=== PATIENT | female | born 1990 | race Caucasian/White ===

== ENCOUNTER → 2018-05-30 10:48 | Outpatient (CLI) | payer OTHER, SELFPAY | PROVIDERS: Family Provider Family Medicine; PCP Family Medicine; Visit Provider Family Medicine | DX: R10.11 Right upper quadrant pain (principal) | CPT/HCPCS: 76705 ==

== ENCOUNTER 2018-10-22 14:33 | Emergency (ER) | payer OTHER, SELFPAY ==
[2018-10-22 14:34] VITALS: BP 120/62; PULSE 110; RESP 18; TEMP 37.2; O2SAT 93; BMI 23.4
--- NOTE | 2018-10-22 14:54 | ED.VISSUMM ---
- ER Visit Summary Date of Service: 10/22/18 Chief Complaint: Nausea, vomiting and diarrhea History of Present Illness: The patient is a 28 F no significant past medical history or prior abdominal surgeries. Patient states since last evening she started having nausea, vomiting and diarrhea. Daughters had similar symptoms but not as severe. She is also developed some abdominal cramping. Decreased oral intake. Decreased urination. No dysuria. Mild fever. Physical Examination: Vital signs are stable. She is afebrile. She does not look septic or toxic. Clinically she is probably mildly dehydrated mucous membranes are moist. HEENT exam unremarkable. Moist mucous membranes. Neck nontender. No lymphadenopathy. No meningismus. Lungs clear to auscultation bilateral. Heart regular rhythm rate about 110 no murmur. Abdomen soft. Nondistended. Normal bowel sounds. No hernias or masses. No signs of obstruction. No peritoneal signs. Extremities moves all 4. Nontender. No edema. Skin no rashes. Back nontender. Neurologically she is awake and alert with no focal motor deficits Test Results: None Emergency Department Course and Treatment: Treated with IV fluids, IV Zofran and p.o. fluid challenge. As well as she can hold down p.o. fluids she will be discharged home on repeat exams. Repeat exam at 1540 patient feels much better after IV fluids and IV Zofran. She is been able to drink glasses of water and is comfortable being discharged home. Treatment Plan: Zofran for nausea as needed. Fluids and rest. Follow-up as needed. Return if worse. Disposition: Discharge Impression: Acute viral gastroenteritis Mild dehydration This note was generated with [employer] dictation software. It may contain incorrect words, spelling, and punctuation that were not noted in review of the chart prior to signing ED Disposition - Plan for ED Patient: Disposition: Home or Assisted Living Chief Complaint: Nausea/Vomiting/Diarrhea Instructions: ED Gastroenteritis Viral Referrals: Yoandy Gates MD [Primary Care Provider] - 1-2 Days if not improving Additional Instructions: Plenty of fluids and rest. Zofran as needed for nausea. Follow-up with your primary care physician if not improving or return to the ER feeling worse.
--- NOTE | 2018-10-22 14:57 | ED.DEP ---
ED Disposition - Plan for ED Patient: Disposition: Home or Assisted Living Chief Complaint: Nausea/Vomiting/Diarrhea Instructions: ED Gastroenteritis Viral Prescriptions: Ondansetron [Zofran Odt] 4 mg PO Q8H PRN PRN #10 tab PRN Reason: Nausea Referrals: Yoandy Gates MD [Primary Care Provider] - 1-2 Days if not improving Additional Instructions: Plenty of fluids and rest. Zofran as needed for nausea. Follow-up with your primary care physician if not improving or return to the ER feeling worse.
[2018-10-22] MEDS: 0.9% Normal Saline 1,000 ML 1000 ML IV (15:00)
[2018-10-22] MEDS: Ondansetron 4 MG/2 ML Vial IV (15:00)
[2018-10-22 15:45] VITALS: BP 126/74; PULSE 69; RESP 15; O2SAT 98
--- OUTSIDE RECORDS SUMMARY | 2018-12-27 11:18 | XMS RPT_ITS ---
:1990 Author Organization [facility] Care Team Providers Name Role Phone Yoandy Gates Primary Care Unavailable Anthony Clayton Attending Unavailable Yoandy Gates Attending Unavailable Yoandy Gates Referring Unavailable Yoandy Gates Primary Care Unavailable PROBLEMS PROBLEMS No Problem Records FoundPROCEDURES PROCEDURES No Procedure Records FoundRESULTS RESULTS EMERGENCY DEPARTMENT Observed: 10/22/2018 Status: F Source: [place] SUMMARY 4:04 PM [facility] [facility] Medical Records Department [address] [place] [address] Emergency Department Summary 10/22/18 1454 MR#: [id number] Acct: [id number] Name: AIDEN FRENCH Rep #: [id number] : 1990 28 From: Anthony Clayton MD PCP: Yoandy Gates MD Status: DEP ER - ER Visit Summary Date of Service: 10/22/18 Chief Complaint: Nausea, vomiting and diarrhea History of Present Illness: The patient is a 28 F no significant past medical history or prior abdominal surgeries. Patient states since last evening she started having nausea, vomiting and diarrhea. Daughters had similar symptoms but not as severe. She is also developed some abdominal cramping. Decreased oral intake. Decreased urination. No dysuria. Mild fever. Physical Examination: Vital signs are stable. She is afebrile. She does not look septic or toxic. Clinically she is probably mildly dehydrated mucous membranes are moist. HEENT exam unremarkable. Moist mucous membranes. Neck nontender. No lymphadenopathy. No meningismus. Lungs clear to auscultation bilateral. Heart regular rhythm rate about 110 no murmur. Abdomen soft. Nondistended. Normal bowel sounds. No hernias or masses. No signs of obstruction. No peritoneal signs. Extremities moves all 4. Nontender. No edema. Skin no rashes. Back nontender. Neurologically she is awake and alert with no focal motor deficits Test Results: None Emergency Department Course and Treatment: Treated with IV fluids, IV Zofran and p.o. fluid challenge. As well as she can hold down p.o. fluids she will be discharged home on repeat exams. Repeat exam at 1540 patient feels much better after IV fluids and IV Zofran. She is been able to drink glasses of water and is comfortable being discharged home. Treatment Plan: Zofran for nausea as needed. Fluids and rest. Follow-up as needed. Return if worse. Disposition: Discharge Impression: Acute viral gastroenteritis Mild dehydration This note was generated with [employer] dictation software. It may contain incorrect words, spelling, and punctuation that were not noted in review of the chart prior to signing ED Disposition - Plan for ED Patient: Disposition: Home or Assisted Living Chief Complaint: Nausea/Vomiting/Diarrhea Instructions: ED Gastroenteritis Viral Referrals: Yoandy Gates MD [Primary Care Provider] - 1-2 Days if not improving Additional Instructions: Plenty of fluids and rest. Zofran as needed for nausea. Follow-up with your primary care physician if not improving or return to the ER feeling worse. What to do if you have Problems For any increased pain, shortness of breath, bleeding, nausea or vomiting, chest pain, or any unexpected problems, contact your Primary Care Provider. Call [facility] ([phone]) or report to the closest Emergency Room. Call 911 if necessary. 10/22/18 9496 <Electronically signed by Anthony Clayton MD> Date Anthony Clayton MD Cosigner Signature (If Indicated): Date CC: Yoandy Gates MD DISCHARGE INSTRUCTION Observed: 10/22/2018 Status: F Source: [place] 4:04 PM [facility] [place] [facility] Medical Records Department [address] [place] [address] Discharge Instruction 10/22/18 1457 MR#: [id number] Acct: [id number] Name: AIDEN FRENCH Rep #: [id number] : 1990 28 From: Anthony Clayton MD PCP: Yoandy Gates MD Status: DEP ER ED Disposition - Plan for ED Patient: Disposition: Home or Assisted Living Chief Complaint: Nausea/Vomiting/Diarrhea Instructions: ED Gastroenteritis Viral Prescriptions: Ondansetron [Zofran Odt] 4 mg PO Q8H PRN PRN #10 tab PRN Reason: Nausea Referrals: Yoandy Gates MD [Primary Care Provider] - 1-2 Days if not improving Additional Instructions: Plenty of fluids and rest. Zofran as needed for nausea. Follow-up with your primary care physician if not improving or return to the ER feeling worse. What to do if you have Problems For any increased pain, shortness of breath, bleeding, nausea or vomiting, chest pain, or any unexpected problems, contact your Primary Care Provider. Call [facility] ([phone]) or report to the closest Emergency Room. Call 911 if necessary. 10/22/18 1604 <Electronically signed by Anthony Clayton MD> Date Anthony Clayton MD Cosigner Signature (If Indicated): Date CC: Yoandy Gates MD ABDOMEN LIMITED Observed: 05/30/2018 Status: F Source: [place] 11:16 AM [facility] Imaging Services [address] [place] [address] Abdomen Limited MR#: [id number] Acct: [id number] Name: AIDEN FRENCH Rep #: [id number] : 1990 F 27 From: Melia Viera PCP: Yoandy Gates MD Status: REG CLI Study: Abdomen Limited Date of Exam: 05/30/18 Exam# [id number] Ordering Dr: Yoandy Gates MD STUDY: ABDOMINAL ULTRASOUND - RIGHT UPPER QUADRANT REASON FOR VISIT: Female, 27 years old. EPIGASTRIC PAIN X 8 YEARS- INTERMITTENT. TECHNIQUE: Ultrasound evaluation of the right upper quadrant was performed with real-time and static oneill-scale imaging. TECHNICAL QUALITY: Adequate. COMPARISON: None. FINDINGS: Liver: The liver measures 14.4 cm. There is normal echogenicity of the liver. The bile ducts are within normal limits. There is hepatic color flow. The direction of portal flow is hepatopetal. There is no demonstrated mass lesion. Gallbladder: Normal distended gallbladder. The gallbladder wall measures 1.8 mm. There is a negative sonographic Parson's sign. There is no pericholecystic fluid. There are no gallstones. Common Bile Duct (C.B.D.): The common bile duct measures 3.3 mm. Pancreas: Normal size of the head, body of the pancreas. There is normal echogenicity of the pancreas. There is no demonstrated pancreatic mass or cyst. Right Kidney: Normal size of the right kidney. The right kidney measures 11.5 cm. Normal renal cortex. The right cortex measures cm. There is no demonstrated renal mass or cyst. There is no right hydronephrosis. US/Abdomen Limited IMPRESSION: Normal right upper quadrant ultrasound examination. Electronically Signed: Melia Viera MD at 12:35 EDT Tel , Service support , CC: Yoandy Gates MD Corporate Lawyer: Signed ALLERGIES ALLERGIES DATE TYPE / CODE NAME / CODE REACTION SEVERITY SOURCE 10/22/2018 Drug No Known Unknown [place] [facility] Allergy/4160 Allergies/F00 [facility] [address](SNOMED [id number](RXNOR Repository CT) M) ENCOUNTERS ENCOUNTERS ADMIT/DISCHARGE ACCOUNT ADMITTING ENCOUNTER LOCATION SOURCE NUMBER CLASS 10/22/2018/ [id number] Emergency [place] 9 5 [facility] ing:ED Repository 05/30/2018 [id number] Ambulatory [place] 6 [facility] ing: Repository PAYERS PAYERS ENCOUNTER GUARANTOR PAYER SUBSCRIBER SOURCE 10/22/2018 AIDEN CAROLIN Primary AIDEN CAROLIN [place] [id number] Insurance:[facility]: [facility] [id number] Number: Repository [id number]: [phone] () Date:[id number] [address] [address]WV: 10/22/2018 Secondary NOT GIVENUNK [place] Insurance:SELF PAY [facility] Number: Effective Repository Date:2018-10-22 05/30/2018 AIDEN F Primary AIDEN F [place] [id number] [facility] [id number] Number: Repository [id number]: ([phone] () Date:[id number] [address] [address]LY: 05/30/2018 Secondary NOT GIVENUNK [place] Insurance:SELF PAY [facility] Number: Effective Repository Date:2018-05-27
== END 2018-10-22 15:46 | disposition home or self-care (01) ==
PROVIDERS: Emergency Provider Emergency Medicine; Family Provider Family Medicine; PCP Family Medicine
DX: A08.4 Viral intestinal infection, unspecified (principal); E86.0 Dehydration; Z72.0 Tobacco use
CPT/HCPCS: 96361; 96374; 99283; J7030; A4216; J2405

== ENCOUNTER → 2018-11-10 10:40 | Outpatient (CLI) | payer OTHER, SELFPAY ==
[2018-10-22 14:34] VITALS: BMI 23.4
[2018-11-10 13:18] LABS: HIV - WCH Non-Reactive (Nonreactive)
[2018-11-10 18:01] LABS: Chlamydia Trachomatis by PCR Negative (Negative); Neisserai gonorrhoeae by PCR Negative (Negative); Probe Check PASS; Sample Adequacy Control PASS; Specimen Processing Control PASS
[2018-11-11 12:06] LABS: HEPATITIS B SURFACE AG Negative (Negative); Hep B Surface Antibodies Non Reactive (.); Hep C Antibodies <0.1 s/co ratio (0.0-0.9)
[2018-11-12 23:33] LABS: Rapid Plasmin Reagin (RPR) NONREACTIVE (NONREACTIVE)
== END ==
PROVIDERS: Family Provider Family Medicine; PCP Family Medicine; Visit Provider Family Medicine
DX: Z11.3 Encounter for screening for infections with a predominantly sexual mode of transmission (principal)
CPT/HCPCS: 36415; 86592; 86703; 86706; 86803; 87340; 87491; 87591

== ENCOUNTER → 2018-12-07 12:02 | Outpatient (CLI) | payer OTHER, SELFPAY ==
--- NOTE | 2018-12-07 12:06 | RAD_ITS ---
STUDY: X-RAY - LUMBAR SPINE REASON FOR EXAM: Female, 28 years old. Pain goes into right hip TECHNIQUE: 5 view(s) of the lumbar spine were obtained. COMPARISON: None FINDINGS: Normal lumbar lordosis. There is no substantial scoliosis. There is a normal alignment of the vertebrae. Transitional segment at the lumbosacral junction. Normal vertebral bodies and endplates. Normal disc space heights. The soft tissue structures are unremarkable. RAD/L/S Spine Min 4 Views IMPRESSION: Transitional segment of the lumbosacral junction. No acute bony injury. Correlate with MRI if clinical symptoms persist. Electronically Signed: Albin Caballero DO at 23:58 EST Tel [phone], Service support ,
[2018-12-07 14:44] LABS: Vitamin D,25 Hydroxy 22.4 ng/mL (29.95-100.01)
== END ==
PROVIDERS: Family Provider Family Medicine; PCP Family Medicine; Referring Provider Family Medicine; Visit Provider Family Medicine
DX: M46.1 Sacroiliitis, not elsewhere classified (principal); E55.9 Vitamin D deficiency, unspecified
CPT/HCPCS: 36415; 72110; 82306

== ENCOUNTER → 2019-01-12 | Outpatient (CLI) | payer OTHER, SELFPAY | END | disposition home or self-care (01) | LOC: LABSPEC 15:31 | PROVIDERS: Family Provider Family Medicine; PCP Family Medicine; Referring Provider Nurse Practitioner Adult Health; Visit Provider Nurse Practitioner Adult Health | DX: B80 Enterobiasis (principal) | CPT/HCPCS: 87177; 87209 ==

== ENCOUNTER 2020-08-04 06:31 | Emergency (ER) | payer MEDICAID, SELFPAY ==
[2020-08-04 06:31] VITALS: BP 123/81; PULSE 86; RESP 18; TEMP 37.1; O2SAT 100; BMI 27.5
[2020-08-04 06:53] LABS: Absolute Lymphocyte Count 2.44 X10^3/uL (0.83-4.51); Absolute Neutrophil Count 3.8 X10^3/uL (2.0-7.7); Basophil# 0.07 X10^3/uL; Eosinophil# 0.29 X10^3/uL; Hematocrit 39.5 % (37-47); Hemoglobin 13.1 g/dL (12.0-15.0); Lymphocyte # 2.44 X10^3/ul (4.0); Lymphocyte % 33.9 % (19-41); Mean Corp Hgb Conc 33.2 g/dL (32-36); Mean Corpuscular Volume 90.6 fL (81-99); Mean Platelet Vol. 9.5 fl (6.2-12.0); Monocyte# 0.55 X10^3/uL; Monocyte% 7.6 % (0-10); NRBC Flagged by Analyzer 0 % (0-5); Neutrophil # 3.83 X10^3/uL (2.7-7.7); Neutrophil % 53.2 % (47-70); Platelet Count 303 K/mm3 (150-450); RBC Distribution Width CV 12.4 % (11.6-14.6); RBC Distribution Width SD 40.8 fl (35.1-43.9); Red Blood Count 4.36 M/mm3 (4.2-5.4); White Blood Count 7.2 K/mm3 (4.4-11.0)
[2020-08-04 07:03] LABS: Anion Gap 6 (5-15); BUN 15 mg/dL (7-18); BUN/Creat Ratio 17.4 RATIO (10-20); Chloride 111 mmol/L (98-107); Creatinine, Serum 0.86 mg/dL (0.55-1.02); EST Glomerular Filtration Rate 83 mL/min (>60); Est Glom Filt Rate - Afr Amer 101 mL/min (>60); Estimated Creatinine Clearance 69.95 ml/min; Glucose 101 mg/dL (74-106); Potassium 3.9 mmol/L (3.5-5.1); Sodium Level 141 mmol/L (136-145)
[2020-08-04] MEDS: Ketorolac 15 MG/ML Vial IV (07:16)
[2020-08-04 07:21] LABS: Internal QC Validated? YES +Cl - CLEAR BKGD; Pregnancy, Serum, hCG Quali. NEGATIVE Negative
--- NOTE | 2020-08-04 07:32 | ED.VIS.GEN ---
History of Present Illness Chief Complaint: Abd Pain Informant: Patient Onset: Today, Hours Context: Sudden Onset Timing: Continuous Quality: Pain Location: Localized suprapubic region Current Severity: Mild Maximum Severity: Severe Worsened by: Supine position Relieved by: Nothing Associated Symptoms: Nausea vomiting and radiation to left side Narrative: Patient is a 30-year-old Ab0 female who was last normal menstrual period was July 10 who presents with chief complaint of suprapubic pain that started 0530 associated with nausea and vomiting. She is presently in a position. She denies history of renal ureterolithiasis. Denies history of endometriosis. She does have history ovarian cyst. She does not use form of control. She denies history of endometriosis. Denies history of STI. She denies dysuria, frequency, urgency or hematuria. She denies vaginal bleeding. There is no history of trauma. Patient has no other complaints. Prior similar symptoms: No Recent Illness/Hospitalization: No - Past Medical History (1) No significant past medical history Status: Acute Past Medical History - Allergies and Home Meds Allergies/Adverse Reactions: Allergies No Known Allergies Allergy (Verified 08/04/20 06:37) Primary Care Physician: Yoandy Gates MD [Primary Care Provider] - Prior records reviewed: Yes Surgical History: noncontributory Lives: With Family Smoking Status: Former smoker Alcohol: Rare Drugs: None Review of Systems General: Denies: Chills, Fever, Malaise, Subjective, Sweats Eyes: Denies: Visual changes - bilaterally, Blurred Vision - bilaterally ENT: Denies: Rhinorrhea, Sore throat Cardiovascular: Denies: Chest pain, Palpitations Respiratory: Denies: Dyspnea, Cough, Dyspnea on exertion Gastrointestinal: Reports: Abdominal pain, Nausea, Vomiting. Denies: Diarrhea, Constipation, Melena, Hematochezia, -, - Genitourinary: Denies: Dysuria, Hematuria, Frequency Musculoskeletal: Reports: Back pain. Denies: Myalgias, Arthralgias, Neck pain, Swelling, Extremity Pain Skin: Denies: Rash, Wounds Neurological: Denies: Headache, Weakness, Numbness Endocrine: Denies: Polyuria, Polydipsia Hematologic: Denies: Easy bruising, Easy bleeding Physical Exam Vital Signs/Narrative: Vital Signs Temp Pulse Resp BP Pulse Ox 08/04/20 06:31 98.8 F 86 18 123/81 H 100 Inital Vital Signs reviewed: Yes General: Well nourished, Well developed, Acute Distress Head: Normocephalic, Atraumatic Eyes: Perrl, EOMI ENT: Moist mucous membranes, No rhinorrhea Neck: Supple, Nontender Cardiovascular: Regular rate, Regular rhythm, No murmurs Respiratory: No distress, CTA bilaterally, Chest nontender Abdomen: Soft, Nondistended, Normal bowel sounds, No masses, Tender, Guarding. Negative for: Rebound tenderness Rectal: Deferred : - - External genitalia is normal. Vaginal mucosa is normal. Cervix is slightly erythematous with discharge noted. Patient has significant cervical motion tenderness. She has significant left adnexal tenderness. Unable to appreciate any mass or fullness. Patient guards. Minimal discomfort right ad Back: Nontender, Normal Inspection Extremities: Nontender, No edema Skin: Normal color, No rash Neurological: Alert, Oriented x3, Cranial nerves II-XII grossly intact, Normal Strength, Normal Sensation Psychological: Normal affect, Normal Mood Diagnostic/Tx/Re-eval Impressions Transvaginal US 08/04/20 08:11 IMPRESSION: 2.7 cm x 1.7 cm x 1.6 cm complex cystic nodule in the left ovary. This may represent a complicated cyst such as hemorrhagic cyst. Follow-up is recommended. There is normal blood flow to both ovaries. Electronically Signed: Miguel Chairez, at 9:09 EDT , Service support , 08/04/20 08:11 Transvaginal Non- [US] Stat Laboratory Results 08/04/20 08/04/20 08/04/20 06:35 06:35 06:35 WBC 7.2 RBC 4.36 Hgb 13.1 Hct 39.5 MCV 90.6 MCH 30.0 MCHC 33.2 RDW Std Deviation 40.8 RDW Coeff of Jamil 12.4 Plt Count 303 MPV 9.5 Immature Gran % (Auto) 0.300 Neut % (Auto) 53.2 Lymph % (Auto) 33.9 [place] % (Auto) 7.6 Eos % (Auto) 4.0 Baso % (Auto) 1.0 Absolute Neuts (auto) 3.8 Absolute Lymphs (auto) 2.44 Nucleated RBC % 0 Sodium 141 Potassium 3.9 Chloride 111 H Carbon Dioxide 24.0 Anion Gap 6 BUN 15 Creatinine 0.86 Estim Creat Clear Calc 69.95 Est GFR (MDRD) Af Amer 101 Est GFR (MDRD) Non-Af 83 BUN/Creatinine Ratio 17.4 Glucose 101 Calcium 9.0 Serum , Qual NEGATIVE Urine Color Urine Clarity Urine pH Ur Specific Marne Urine Protein Urine Glucose (UA) Urine Ketones Urine Occult Blood Urine Nitrite Urine Bilirubin Urine Urobilinogen Ur Leukocyte Esterase Urine RBC Urine WBC Ur Squamous Epith Cells Amorphous Sediment Urine Bacteria Urine Mucus 08/04/20 08:20 WBC RBC Hgb Hct MCV MCH MCHC RDW Std Deviation RDW Coeff of Jamil Plt Count MPV Immature Gran % (Auto) Neut % (Auto) Lymph % (Auto) [place] % (Auto) Eos % (Auto) Baso % (Auto) Absolute Neuts (auto) Absolute Lymphs (auto) Nucleated RBC % Sodium Potassium Chloride Carbon Dioxide Anion Gap BUN Creatinine Estim Creat Clear Calc Est GFR (MDRD) Af Amer Est GFR (MDRD) Non-Af BUN/Creatinine Ratio Glucose Calcium Serum , Qual Urine Color Yellow Urine Clarity Sl. Cloudy Urine pH 7.0 Ur Specific Marne 1.015 Urine Protein Negative Urine Glucose (UA) Normal Urine Ketones Negative Urine Occult Blood Negative Urine Nitrite Negative Urine Bilirubin Negative Urine Urobilinogen Normal Ur Leukocyte Esterase Negative Urine RBC 0 SEEN Urine WBC 0 SEEN Ur Squamous Epith Cells 0-5 SEEN Amorphous Sediment 1+ Urine Bacteria 0 SEEN Urine Mucus 0 SEEN Patient states she does not have a supervisor [employer]. She was referred to Dr. Bruna Franco who is on-call. She was informed of the ultrasound results. - Medical Decision Making With abrupt onset of abdominal pain that radiates to the left area which is unusual for her need to evaluate for ureterolithiasis with hydronephrosis, ruptured ovarian cyst, torsion, blood work was initiated per nursing protocol. Pelvic exam is pending. ED Disposition - Plan for ED Patient: Disposition: Home or Assisted Living Diagnosis: Complex cyst of left ovary Instructions: ED Cyst Ovarian Prescriptions: Naproxen [Naprosyn] 500 mg PO BID #14 tab Prescription Printed Hydrocodone Bitart/Apap 5-325 [[place] 5MG-325MG] 1 tab PO Q6H PRN PRN 3 Days #10 tab PRN Reason: Pain Prescription Printed Referrals: Yoandy Gates MD [Primary Care Provider] - Yolanda Schuster MD [STAFF PHYSICIAN] - 3-5 Days
--- NOTE | 2020-08-04 08:11 | US_ITS ---
STUDY: ULTRASOUND OF THE FEMALE PELVIS - COMPLETE REASON FOR EXAM: Female, 30 years old. PELVIC PAIN LMP: 07/10/2020. TECHNIQUE: Transvaginal TECHNICAL QUALITY: Adequate. COMPARISON: None. FINDINGS: The uterus is anteverted and is in a midline position. The uterus measures 9.4 cm x 5.6 cm x 4.4 cm. There is a Nabothian cyst of the cervix. The endometrium measures 10 mm in thickness, and is hyperechoic. There is no demonstrated endometrial mass. There is no demonstrated myometrial mass. I.U.D. - The patient does not have an I.U.D. The right ovary is visualized. The right ovary measures 2.6 cm x 3.3 cm x 1.8 cm. There is no right ovarian cyst or ovarian mass. There is no visualized right adnexal mass or complex lesion. There is normal arterial and normal venous vascularity. The left ovary is visualized. The left ovary measures 4.5 cm x 3.3 cm x 2.1 cm. There is a 2 cm x 1.7 cm x 1.6 cm complex cystic nodule in the left ovary. This may represent an hemorrhagic cyst. There is no visualized left adnexal mass or complex lesion. There is normal arterial and normal venous vascularity. There is no fluid in the cul-de-sac. US/Transvaginal Non- IMPRESSION: 2.7 cm x 1.7 cm x 1.6 cm complex cystic nodule in the left ovary. This may represent a complicated cyst such as hemorrhagic cyst. Follow-up is recommended. There is normal blood flow to both ovaries. Electronically Signed: Miguel Chairez, at 9:09 EDT , Service support ,
[2020-08-04 08:25] LABS: Bacteria 0 SEEN /hpf (None Seen); Mucous, Urine 0 SEEN /hpf (<or=2+); Red Blood Cells-Urine 0 SEEN /hpf (0-5); White Blood Cells 0 SEEN /hpf (0-5)
[2020-08-04 08:32] LABS: Color, Urine Yellow (Yellow); Glucose, Dipstick Normal (Normal); Ketone-Dipstick Negative (Negative); Leukocyte Esterase-Dipstick Negative /ul (Negative); Nitrite-Dipstick Negative (Negative); Occult Blood-Urine Negative /ul (Negative); Protein-Dipstick Negative (Negative); Specific Gravity, Urine 1.015 (1.002-1.030); Urine Bilirubin Dipstick Negative (Negative); Urine Clarity Sl. Cloudy (Clear); Urine Urobilinogen Normal (Normal)
[2020-08-04 08:47] LABS: Amorphous Sediment 1+; Squamous Epithelial Cells - UA 0-5 SEEN /hpf (5-10)
[2020-08-04 09:01] VITALS: BP 102/62; PULSE 65; RESP 16; O2SAT 99
[2020-08-04 11:08] VITALS: BP 122/78; PULSE 87; RESP 16; TEMP 36.4; O2SAT 99
[2020-08-04 11:10] LABS: Chlamydia Trachomatis by PCR Negative (Negative); Neisserai gonorrhoeae by PCR Negative (Negative); Probe Check PASS; Sample Adequacy Control PASS; Specimen Processing Control PASS
== END 2020-08-04 11:11 | disposition home or self-care (01) ==
PROVIDERS: Emergency Provider Emergency Medicine; PCP Family Medicine
DX: N83.292 Other ovarian cyst, left side (principal); Z87.891 Personal history of nicotine dependence
CPT/HCPCS: 76830; 76856; 80048; 81001; 84703; 85025; 87491; 87591; 96374; 99284; A4216; J2405

== ENCOUNTER 2021-04-04 13:41 | Emergency (ER) | payer MEDICAID, SELFPAY ==
[2021-04-04 13:42] VITALS: BP 119/74; PULSE 81; RESP 16; TEMP 36.4; O2SAT 99; BMI 25.5
--- NOTE | 2021-04-04 14:13 | EDS_ITS ---
HPI HPI - GI History of Present Illness Chief Complaint: Abd Pain Narrative Narrative: 30-year-old female presenting with right flank pain. She states it started acutely about 6 hours ago. She states that she did have difficulty finding position of comfort and had some nausea at that time. She states that the pain has gone down since then. She went to urgent care who sent her here because the pain was in the right lower quadrant. Patient has no fever or c hills. She denies urinary symptoms. She denies change in bowel habits. She is currently not in pain or having nausea. She states she has a history of ovarian cysts which feels somewhat different than this. She has no history of kidney stones. [facility] Medical History Ovarian cyst Home Medications albuterol sulfate [Ventolin HFA] 2 puff INHALATION Q6H PRN PRN #1 inhaler 08/29/14 [Rx Last Taken Unknown] naproxen 500 mg PO BID #14 tab 08/04/20 [Rx Last Taken Unknown] Allergy/AdvReac Type Severity Reaction Status Date / Time No Known Allergies Allergy Verified 04/04/21 13:41 Social History Smoking Status: Former smoker ROS ROS ED Constitutional Constitutional ED: Denies chills, fever(s) or sweats ENT ENT ED: Denies rhinorrhea or sore throat Cardiovascular Cardiovascular: Denies chest pain or palpitations Respiratory/Chest Respiratory/Chest: Denies cough or dyspnea Gastrointestinal Gastrointestinal: Reports abdominal pain and nausea; Denies constipation, diarrhea or vomiting Genitourinary Genitourinary ED: Denies dysuria or hematuria Musculoskeletal Musculoskeletal: Denies arthralgias or myalgias Integumentary Denies abscess or rash Neurologic Neurologic: Denies headache(s) or weakness Psychiatric Psychiatric: Denies anxiety or depression EXAM Physical Exam Const Vital Signs: 04/04/21 13:42 04/04/21 18:31 Temperature 97.6 F L Temperature Source Temporal Pulse Rate 81 71 Respiratory Rate 16 15 Blood Pressure 119/74 134/69 H Blood Pressure Mean 89 Pulse Ox 99 98 Oxygen Delivery Method Room Air Positive well nourished General Appearance ED: NAD HEENT normocephalic and atraumatic Eyes PERRL and EOMs intact bilaterally Resp normal respiratory effort and clear to auscultation bilaterally Cardio regular rate and regular rhythm GI non-tender and non-distended Palpation: soft Back/Spine no CVA tenderness Neuro Sensorium / Orientation: alert and oriented to person Psych mental status grossly normal and thought process normal Skin Lesions: no lesions Rashes: no rashes MDM MDM MDM Narrative Medical decision making narrative: Patient seen arrival for pain. She declined any analgesia or antiemetics. She initially would not accept any IV but did let the nursing staff draw blood. Patient was counseled that if she wanted to have a CT of the abdomen pelvis with IV contrast she would need an IV so an IV was established. On reevaluation the patient is laying her head on the bed while sitting in the chair crying. She states that she wants to leave but she does not want to leave before her results. I asked her if she needed any for pain and she said no. I tried to ask her what she was upset about although she did not answer me. I told her if she needed anything to please let me know. Patient's lab work-up was unremarkable. Patient's urinalysis is negative. CT of the abdomen pelvis shows no acute process. The appendix was not visualized however given she has no leukocytosis and she had acute onset of pain that does not sound like appendicitis. She is given return precautions. Impression: 1. Abdominal pain Lab Data Labs: Laboratory Results - last 24 hr 04/04/21 04/04/21 04/04/21 14:20 14:30 14:30 WBC 7.7 RBC 4.09 L Hgb 12.2 Hct 36.3 L MCV 88.8 MCH 29.8 MCHC 33.6 RDW Std Deviation 39.1 RDW Coeff of Jamil 12.1 Plt Count 279 MPV 9.6 Immature Gran % (Auto) 0.300 Neut % (Auto) 57.5 Lymph % (Auto) 31.6 [place] % (Auto) 6.8 Eos % (Auto) 2.9 Baso % (Auto) 0.9 Absolute Neuts (auto) 4.4 Absolute Lymphs (auto) 2.43 Nucleated RBC % 0 Sodium 139 Potassium 3.8 Chloride 108 H Carbon Dioxide 26.0 Anion Gap 5 BUN 13 Creatinine 0.83 Estim Creat Clear Calc 72.48 Est GFR (MDRD) Af Amer 105 Est GFR (MDRD) Non-Af 87 BUN/Creatinine Ratio 15.7 Glucose 84 Calcium 8.9 Urine Color Yellow Urine Clarity Sl. Cloudy Urine pH 5.0 Ur Specific [place] 1.020 Urine Protein Negative Urine Glucose (UA) Normal Urine Ketones Negative Urine Occult Blood Negative Urine Nitrite Negative Urine Bilirubin Negative Urine Urobilinogen Normal Ur Leukocyte Esterase Negative Urine RBC 0 SEEN Urine WBC 0 SEEN Ur Squamous Epith Cells 0 SEEN Urine Bacteria 0 SEEN Urine Mucus 0 SEEN Radiography Diagnostic Testing: Radiology Impression Abdomen/Pelvis CT 04/04/21 16:55 IMPRESSION: No acute abnormalities in the abdomen or pelvis. Non-visualization of the appendix. Electronically Signed: Ben Wren MD at 18:13 EDT Tel , Service support , Discharge Plan Triage Chief Complaint: Abd Pain ED Provider: Balbir Auguste Dx/Rx/DC Orders Instructions: ED Abdominal Pain Unkn Cause Fem Prescriptions: No Action albuterol sulfate [Ventolin HFA] 1 INHALER inhaler 2 puff inhalation Q6H PRN PRN (Reason: Wheezing) Qty: 1 RF: 0 naproxen 500 MG tablet 500 mg PO BID Qty: 14 RF: 0 Primary Care Provider: Tata Rock Referrals: Tata Rock MD [Primary Care Provider] - Disposition Disposition: Home, Self Care Discharge Date/Time: 04/04/21 18:32
[2021-04-04 14:32] LABS: Bacteria 0 SEEN /hpf (None Seen); Mucous, Urine 0 SEEN /hpf (<or=2+); Red Blood Cells-Urine 0 SEEN /hpf (0-5); Squamous Epithelial Cells - UA 0 SEEN /hpf (5-10); White Blood Cells 0 SEEN /hpf (0-5)
--- NOTE | 2021-04-04 14:38 | NURSING ---
Pt refusing IV and being difficult about having workup done stating I came here for a CAT scan...I don't understand why an IV is necessary. This RN explained that once IV established, we are able to draw blood repeatedly as well as provide IV pain medication if needed. We also need lab work to determine if kidney function and other lab work warrant further investigation of illness w/ a CAT scan. Pt resistant but agreeable to lab draw. Dr. Auguste made aware.
[2021-04-04 14:45] LABS: Color, Urine Yellow (Yellow); Glucose, Dipstick Normal (Normal); Ketone-Dipstick Negative (Negative); Leukocyte Esterase-Dipstick Negative /ul (Negative); Nitrite-Dipstick Negative (Negative); Occult Blood-Urine Negative /ul (Negative); Protein-Dipstick Negative (Negative); Urine Bilirubin Dipstick Negative (Negative); Urine Clarity Sl. Cloudy (Clear); Urine Urobilinogen Normal (Normal)
[2021-04-04 14:48] LABS: Absolute Lymphocyte Count 2.43 X10^3/uL (0.83-4.51); Absolute Neutrophil Count 4.4 X10^3/uL (2.0-7.7); Basophil# 0.07 X10^3/uL; Basophil% 0.9 % (0-1); Eosinophil# 0.22 X10^3/uL; Eosinophils% 2.9 % (0-5); Hematocrit 36.3 % (37-47); Hemoglobin 12.2 g/dL (12.0-15.0); Lymphocyte # 2.43 X10^3/ul (0.83-4.51); Lymphocyte % 31.6 % (19-41); Mean Corp Hgb Conc 33.6 g/dL (32-36); Mean Corpuscular Hgb 29.8 pg (27.0-32.0); Mean Corpuscular Volume 88.8 fL (81-99); Mean Platelet Vol. 9.6 fl (6.2-12.0); Monocyte# 0.52 X10^3/uL; Monocyte% 6.8 % (0-10); NRBC Flagged by Analyzer 0 % (0-5); Neutrophil # 4.43 X10^3/uL (2.7-7.7); Neutrophil % 57.5 % (47-70); Platelet Count 279 K/mm3 (150-450); RBC Distribution Width CV 12.1 % (11.6-14.6); RBC Distribution Width SD 39.1 fl (35.1-43.9); Red Blood Count 4.09 M/mm3 (4.2-5.4); White Blood Count 7.7 K/mm3 (4.4-11.0)
[2021-04-04 14:57] LABS: Anion Gap 5 (5-15); BUN 13 mg/dL (7-18); BUN/Creat Ratio 15.7 RATIO (10-20); Calcium,Total 8.9 mg/dL (8.5-10.1); Chloride 108 mmol/L (98-107); Creatinine, Serum 0.83 mg/dL (0.55-1.02); EST Glomerular Filtration Rate 87 mL/min (>60); Est Glom Filt Rate - Afr Amer 105 mL/min (>60); Estimated Creatinine Clearance 72.48 ml/min; Glucose 84 mg/dL (74-106); Potassium 3.8 mmol/L (3.5-5.1); Sodium Level 139 mmol/L (136-145)
--- NOTE | 2021-04-04 15:22 | NURSING ---
When Dr. Auguste questioned if whether test should be ordered prior to CAT scan, he responds that he asked pt if she had a chance of and she replied -- you have to have sex to get and there is no way that she is -- therefore, test not ordered at this time. nanotechnology engineering technologist Megan made aware.
--- NOTE | 2021-04-04 16:55 | CT_ITS ---
INDICATION: RLQ Pain -- IV PO Contrast EXAMINATION: CT Abdomen And Pelvis W/ Contrast Injection TECHNIQUE: Helically acquired images were obtained of the abdomen and pelvis after IV contrast. A radiation dose optimization technique was used for this scan. IV Contrast dosage and agent: Oral and amp; IV Gastrografin and amp; 100mL Isovue-300 Oral contrast: Yes. COMPARISON: None. FINDINGS: Visualized lung bases: Unremarkable Liver: Unremarkable Gallbladder: Unremarkable Spleen: Unremarkable Pancreas: Unremarkable Adrenal Glands: Unremarkable Kidneys: Unremarkable Vasculature: Unremarkable GI Tract: The appendix is not visualized. Lymphadenopathy: None Peritoneum: No ascites. Bladder: Unremarkable Reproductive organs: Unremarkable Bones/Soft tissues: No suspicious osseous or soft tissue lesions CT/Abdomen/Pelvis WITH Contrast IMPRESSION: No acute abnormalities in the abdomen or pelvis. Non-visualization of the appendix. Electronically Signed: Ben Wren MD at 18:13 EDT Tel , Service support ,
--- NOTE | 2021-04-04 17:04 | NURSING ---
Arcelia from CT called this RN stating that pt was complaining, grabbing R arm, c/o pins and needles in arm from contrast. Arcelia reports contrast administered without any issues and at the end of scan, they were able to flush the IV and had positive blood return. Pt's arm is red d/t pt grabbing and rubbing arm during scan.
[2021-04-04 18:31] VITALS: BP 134/69; PULSE 71; RESP 15; O2SAT 98
== END 2021-04-04 18:32 | disposition home or self-care (01) ==
PROVIDERS: Emergency Provider Student in an Organized Health Care Education/Training Program; PCP Internal Medicine
DX: R10.31 Right lower quadrant pain (principal); R11.0 Nausea; Z87.891 Personal history of nicotine dependence
CPT/HCPCS: 74177; 80048; 81001; 85025; 99283; Q9967; A4216

== ENCOUNTER 2021-05-18 14:26 | Emergency (ER) | payer MEDICAID, SELFPAY ==
[2021-05-18 14:28] VITALS: BP 116/86; PULSE 74; RESP 18; TEMP 36.7; O2SAT 96; BMI 24.4
--- NOTE | 2021-05-18 14:59 | CT_ITS ---
STUDY: CT BRAIN WITHOUT CONTRAST REASON FOR EXAM: Female, 30 years old. Pain RADIATION DOSAGE (If Supplied By Facility): CTDIvol = ( 44.99 ) mGy, DLP = ( 711.75 ) mGycm TECHNIQUE: Transaxial CT imaging of the brain was performed without administration of intravenous contrast material. Individualized dose optimization techniques were used for this CT. COMPARISON: No relevant priors. FINDINGS: Normal soft tissue structures. Normal calvarium. Normal size ventricles and extra-axial spaces for the patient''s age. Normal white matter tracts of the cerebral hemispheres. Normal basal ganglia and thalami. Normal brainstem. Normal cerebellum. There is no intracranial hemorrhage. There are no findings of an acute ischemic infarction. Normal visualized paranasal sinuses. CT/Brain/Head without Contrast IMPRESSION: Normal unenhanced CT scan of the brain. Electronically Signed: Miguel Chairez MD at 15:47 EDT , Service support ,
[2021-05-18] MEDS: 0.9% Normal Saline 1,000 ML 999 ML IV (15:21)
[2021-05-18] MEDS: Metoclopramide 10 MG/2 ML Vial IV (15:22)
[2021-05-18] MEDS: DiphenhydrAMINE 50 MG/ML Syringe 25 MG IV (15:22)
[2021-05-18 15:23] LABS: Absolute Lymphocyte Count 2.16 X10^3/uL (0.83-4.51); Absolute Neutrophil Count 6.4 X10^3/uL (2.0-7.7); Basophil# 0.07 X10^3/uL; Basophil% 0.7 % (0-1); Eosinophil# 0.15 X10^3/uL; Eosinophils% 1.6 % (0-5); Hematocrit 41.4 % (37-47); Hemoglobin 13.6 g/dL (12.0-15.0); Lymphocyte # 2.16 X10^3/ul (0.83-4.51); Lymphocyte % 22.9 % (19-41); Mean Corp Hgb Conc 32.9 g/dL (32-36); Mean Corpuscular Hgb 29.5 pg (27.0-32.0); Mean Corpuscular Volume 89.8 fL (81-99); Mean Platelet Vol. 9.4 fl (6.2-12.0); Monocyte# 0.57 X10^3/uL; NRBC Flagged by Analyzer 0 % (0-5); Neutrophil # 6.42 X10^3/uL (2.7-7.7); Neutrophil % 68.2 % (47-70); Platelet Count 293 K/mm3 (150-450); RBC Distribution Width CV 12.1 % (11.6-14.6); RBC Distribution Width SD 39.3 fl (35.1-43.9); Red Blood Count 4.61 M/mm3 (4.2-5.4); White Blood Count 9.4 K/mm3 (4.4-11.0)
[2021-05-18 15:43] LABS: ALB/GLOB Ratio 1.1 RATIO (0.9-2.4); AST(SGOT) 13 U/L (15-37); Alanine Aminotransfer ALT/SGPT 20 U/L (13-56); Albumin, Serum 3.9 g/dL (3.2-5.0); Alkaline Phosphatase 43 U/L (45-117); Anion Gap 3 (5-15); BUN 8 mg/dL (7-18); Chloride 107 mmol/L (98-107); Creatinine, Serum 0.73 mg/dL (0.55-1.02); EST Glomerular Filtration Rate 101 mL/min (>60); Est Glom Filt Rate - Afr Amer 122 mL/min (>60); Estimated Creatinine Clearance 82.41 ml/min; Globulin 3.4 g/dL (2.2-4.2); Glucose 77 mg/dL (74-106); Potassium 3.8 mmol/L (3.5-5.1); Protein, Total 7.3 g/dL (6.4-8.2); Sodium Level 139 mmol/L (136-145)
[2021-05-18 15:59] LABS: Bacteria 0 SEEN /hpf (None Seen); Mucous, Urine 0 SEEN /hpf (<or=2+); Red Blood Cells-Urine 0 SEEN /hpf (0-5); White Blood Cells 0 SEEN /hpf (0-5)
[2021-05-18 16:06] LABS: Color, Urine Yellow (Yellow); Glucose, Dipstick Normal (Normal); Ketone-Dipstick Negative (Negative); Leukocyte Esterase-Dipstick Negative /ul (Negative); Nitrite-Dipstick Negative (Negative); Occult Blood-Urine Negative /ul (Negative); Protein-Dipstick Negative (Negative); Urine Bilirubin Dipstick Negative (Negative); Urine Clarity Clear (Clear); Urine Urobilinogen Normal (Normal)
--- NOTE | 2021-05-18 16:16 | EX.ED.VIS.HA ---
HPI History of Present Illness Chief Complaint: Headache Informant: patient Onset/Context/Timing Onset: Weeks (3) Context: Gradual Timing: Continuous Quality -Headache: Positive for Throbbing Location: Generalized Worsened by: Laying flat Relieved by: Nothing Associated Symptoms/Injury Associated Symptoms: Positive for Nausea, Sinus Pressure, Numbness, Visual Changes, Blurred Vision and Photophobia; Negative for Fever, Vomiting, Sore Throat, Tingling, Preceding Aura and Visual Loss Narrative Narrative: Patient presents with a headache that has been constant for the past 3 weeks. Patient describes the pain as throbbing. Patient states it is generalized throughout her head. Patient states it is worse whenever she lays flat. Patient admits to some sinus pressure. Patient also admits to some fatigue. Patient admits to photophobia and phonophobia. Patient also admits to some intermittent blurred vision. Patient states she has numbness to her face. Patient admits to nausea but denies any vomiting. Patient denies any fevers or chills. [facility] Medical History Ovarian cyst Home Medications albuterol sulfate [Ventolin HFA] 2 puff INHALATION Q6H PRN PRN #1 inhaler 08/29/14 [Rx Last Taken Unknown] naproxen 500 mg PO BID #14 tab 08/04/20 [Rx Last Taken Unknown] Allergy/AdvReac Type Severity Reaction Status Date / Time No Known Allergies Allergy Verified 04/04/21 13:41 no surgical history Social History Smoking Status: Current every day smoker tobacco type: cigarettes ROS ROS ED Constitutional Constitutional ED: Reports chills and subjective; Denies fever(s) Eyes Eyes: Reports blurry vision; Denies diplopia ENT ENT ED: Denies rhinorrhea or sore throat Cardiovascular Cardiovascular: Denies chest pain or palpitations Respiratory/Chest Respiratory/Chest: Denies cough or dyspnea Gastrointestinal Gastrointestinal: Reports nausea; Denies vomiting Genitourinary Genitourinary ED: Denies dysuria or hematuria Musculoskeletal Musculoskeletal: Denies back pain or neck pain Integumentary Denies abscess or rash Neurologic Neurologic: Reports headache(s); Denies weakness Allergic/Immunologic Allergic/Immunologic ED: Denies mouth swelling or urticaria EXAM Physical Exam Const Vital Signs: 05/18/21 14:28 05/18/21 16:29 Temperature 98.1 F Temperature Source Temporal Pulse Rate 74 77 Respiratory Rate 18 Blood Pressure 116/86 H 120/88 H Blood Pressure Mean 96 Pulse Ox 96 Oxygen Delivery Method Room Air Positive well nourished and well developed General Appearance ED: well developed HEENT Reports moist mucous membranes Neck supple and no JVD Resp normal respiratory effort and clear to auscultation bilaterally Cardio regular rate, regular rhythm and no murmurs GI normal to inspection, nondistended, normoactive bowel sounds and non-tender Palpation: soft Extremity normal to inspection General Extremety ED: Negative for edema or tenderness General Extremity: Negative for edema Neuro oriented x3, CN's II-XII intact bilaterally and no sensory deficits noted Sensorium / Orientation: awake and alert Motor Exam: strength 5/5 throughout Psych mental status grossly normal Skin no rashes or lesions noted MDM MDM MDM Narrative Medical decision making narrative: Patient was given IV fluids, Reglan, and Benadryl. CT scan of the brain was obtained. There is no acute intracranial abnormality. This was interpreted by the radiologist and reviewed by myself. CBC and comprehensive metabolic profile within normal limits. Urinalysis was normal. Patient states her headache was improved on reevaluation. Patient states she still felt anxious and jittery. Patient was given a dose of Ativan here. Patient was instructed to drink plenty of fluids. Patient was instructed to rest in a dark quiet room. Patient was instructed to follow-up with her primary care physician in 5 to 7 days. Patient understood and was agreeable with the plan. All questions were answered. Lab Data Attestation: I reviewed the patient's lab results. Labs: Laboratory Results - last 24 hr 05/18/21 05/18/21 05/18/21 14:50 15:10 15:10 WBC 9.4 RBC 4.61 Hgb 13.6 Hct 41.4 MCV 89.8 MCH 29.5 MCHC 32.9 RDW Std Deviation 39.3 RDW Coeff of Jamil 12.1 Plt Count 293 MPV 9.4 Immature Gran % (Auto) 0.600 Neut % (Auto) 68.2 Lymph % (Auto) 22.9 [place] % (Auto) 6.0 Eos % (Auto) 1.6 Baso % (Auto) 0.7 Absolute Neuts (auto) 6.4 Absolute Lymphs (auto) 2.16 Nucleated RBC % 0 Sodium 139 Potassium 3.8 Chloride 107 Carbon Dioxide 29.0 Anion Gap 3 L BUN 8 Creatinine 0.73 Estim Creat Clear Calc 82.41 Est GFR (MDRD) Af Amer 122 Est GFR (MDRD) Non-Af 101 BUN/Creatinine Ratio 11.0 Glucose 77 Calcium 9.0 Total Bilirubin 1.00 AST 13 L ALT 20 Alkaline Phosphatase 43 L Total Protein 7.3 Albumin 3.9 Globulin 3.4 Albumin/Globulin Ratio 1.1 Urine Color Yellow Urine Clarity Clear Urine pH 7.0 Ur Specific [place] 1.010 Urine Protein Negative Urine Glucose (UA) Normal Urine Ketones Negative Urine Occult Blood Negative Urine Nitrite Negative Urine Bilirubin Negative Urine Urobilinogen Normal Ur Leukocyte Esterase Negative Urine RBC 0 SEEN Urine WBC 0 SEEN Ur Squamous Epith Cells 0-5 SEEN Urine Bacteria 0 SEEN Urine Mucus 0 SEEN Radiography Diagnostic Testing: Radiology Impression Brain CT 05/18/21 14:59 IMPRESSION: Normal unenhanced CT scan of the brain. Electronically Signed: Miguel Chairez MD at 15:47 EDT , Service support , Discharge Plan Triage Chief Complaint: Headache Other Complaint: Dizziness ED Provider: Jorge Hinson Dx/Rx/DC Orders Clinical Impression: Headache Instructions: ED Headache Unspecified Prescriptions: No Action albuterol sulfate [Ventolin HFA] 1 INHALER inhaler 2 puff inhalation Q6H PRN PRN (Reason: Wheezing) Qty: 1 RF: 0 naproxen 500 MG tablet 500 mg PO BID Qty: 14 RF: 0 Primary Care Provider: Tata Rock Referrals: Tata Rock MD [Primary Care Provider] - 5-7 Days Disposition Disposition: Home, Self Care Discharge Date/Time: 05/18/21 16:33
[2021-05-18 16:21] LABS: Squamous Epithelial Cells - UA 0-5 SEEN /hpf (5-10)
[2021-05-18] MEDS: LORazepam 2 MG/ML Syringe 0.5 MG IV (16:25)
[2021-05-18 16:29] VITALS: BP 120/88; PULSE 77
== END 2021-05-18 16:33 | disposition home or self-care (01) ==
PROVIDERS: Emergency Provider Emergency Medicine; PCP Internal Medicine
DX: R51.9 Headache, unspecified (principal); H53.149 Visual discomfort, unspecified; H53.8 Other visual disturbances; R11.0 Nausea; F17.210 Nicotine dependence, cigarettes, uncomplicated
CPT/HCPCS: 70450; 80053; 81001; 85025; 96361; 96374; 96375; 99283; J7030; A4216

== ENCOUNTER 2021-09-30 08:20 | Emergency (ER) | payer MEDICAID, SELFPAY ==
[2021-09-30 08:21] VITALS: BP 110/75; PULSE 103; RESP 16; TEMP 37.7; O2SAT 98; BMI 26.4
--- NOTE | 2021-09-30 08:37 | EX.ED.DYSGE1 ---
HPI History of Present Illness Chief Complaint: Headache Informant: patient and parent Narrative Narrative: 31-year-old female presents with her mother stating that since yesterday she has had fever headache sore throat congestion chills and vomiting. She is not Covid vaccinated. She states that when she gets cold it makes her headache worse. She notes photophobia and phonophobia. Headache is generalized. She notes body aches. [facility] Medical History Ovarian cyst Home Medications bupropion HCl 75 mg PO DAILY 09/30/21 [History Last Taken Unknown] escitalopram oxalate 10 mg PO DAILY 09/30/21 [History Last Taken Unknown] Allergy/AdvReac Type Severity Reaction Status Date / Time No Known Allergies Allergy Verified 09/30/21 08:21 Social History (Updated 09/30/21 @ 08:[address] Trent Frausto DO) Smoking Status: Current every day smoker tobacco type: cigarettes substance use type: does not use ROS ROS ED Constitutional Constitutional ED: Reports chills and fever(s); Denies weight loss Eyes Eyes: Denies change in vision or diplopia ENT ENT ED: Reports sore throat and other Details: Nasal congestion ; Denies ear pain or rhinorrhea Cardiovascular Cardiovascular: Denies chest pain, orthopnea, palpitations or racing heartbeat Respiratory/Chest Respiratory/Chest: Denies cough, dyspnea or orthopnea Gastrointestinal Gastrointestinal: Reports nausea and vomiting; Denies abdominal pain or diarrhea Genitourinary Genitourinary ED: Denies dysuria, hematuria or urinary frequency Musculoskeletal Musculoskeletal: Reports myalgias; Denies arthralgias Integumentary Denies abscess or rash Neurologic Neurologic: Reports headache(s); Denies weakness Psychiatric Psychiatric: Denies anxiety, depression, suicidal ideation or suicidal thoughts Endocrine Endocrinology: Denies polydipsia, polyphagia or polyuria Allergic/Immunologic Allergic/Immunologic ED: Denies mouth swelling, tongue swelling or urticaria EXAM Physical Exam Narrative Exam Narrative: 31-year-old female laying in bed whimpering with heated vest and blankets on Const Vital Signs: 09/30/21 08:21 Temperature 99.8 F H Temperature Source Temporal Pulse Rate 103 H Respiratory Rate 16 Blood Pressure 110/75 Blood Pressure Mean 86 Pulse Ox 98 Oxygen Delivery Method Room Air Positive well nourished and well developed General Appearance ED: well developed HEENT Reports normocephalic, head/scalp atraumatic, TM's clear and moist mucous membranes Negative for trauma Tympanic Membrane ED: Yes TM's clear Eyes PERRL and EOMs intact bilaterally Neck no lymphadenopathy, supple and no JVD Resp normal respiratory effort and clear to auscultation bilaterally Cardio regular rate and no murmurs Rate: tachycardic GI normal to inspection, nondistended, normoactive bowel sounds and non-tender Palpation: soft Back/Spine no CVA tenderness and normal ROM Extremity normal to inspection General Extremety ED: Negative for edema General Extremity: Negative for edema Neuro oriented x3 and CN's II-XII intact bilaterally Sensorium / Orientation: alert Motor Exam: strength 5/5 throughout Psych mental status grossly normal Mood & Affect: tearful; Negative for depressed Skin no rashes or lesions noted and no wounds MDM MDM MDM Narrative Medical decision making narrative: Basic blood work was normal. Influenza and Covid swabs were negative. Patient received fluids Zofran and Toradol. At this point patient will be discharged home with supportive care return if worsening or concerns Lab Data Attestation: I reviewed the patient's lab results. Labs: Laboratory Results - last 24 hr 09/30/21 09/30/21 08:41 08:41 WBC 4.9 RBC 4.29 Hgb 12.9 Hct 38.1 MCV 88.8 MCH 30.1 MCHC 33.9 RDW Std Deviation 38.5 RDW Coeff of Jamil 11.9 Plt Count 248 MPV 9.5 Immature Gran % (Auto) 0.200 Neut % (Auto) 82.8 H Lymph % (Auto) 5.3 L [place] % (Auto) 10.7 H Eos % (Auto) 0.4 Baso % (Auto) 0.6 Absolute Neuts (auto) 4.0 Absolute Lymphs (auto) 0.26 L Nucleated RBC % 0 Differential Comment SCANNED Sodium 140 Potassium 3.6 Chloride 109 H Carbon Dioxide 23.0 Anion Gap 8 BUN 8 Creatinine 0.90 Estim Creat Clear Calc 66.25 Est GFR (MDRD) Af Amer 95 Est GFR (MDRD) Non-Af 78 BUN/Creatinine Ratio 8.9 L Glucose 102 Calcium 8.6 Total Bilirubin 0.50 AST 20 ALT 31 Alkaline Phosphatase 45 Total Protein 7.1 Albumin 3.6 Globulin 3.5 Albumin/Globulin Ratio 1.0 Discharge Plan Triage Chief Complaint: Headache ED Provider: Trent Frausto Dx/Rx/DC Orders Clinical Impression: Headache, Acute viral syndrome Instructions: ED Viral Syndrome (Adult) Prescriptions: No Action escitalopram oxalate 10 mg tablet 10 mg PO DAILY RF: 0 bupropion HCl 75 mg tablet 75 mg PO DAILY RF: 0 Primary Care Provider: Tata Rock Referrals: Tata Rock MD [Primary Care Provider] - As Needed Disposition Disposition: Home, Self Care
[2021-09-30] MEDS: 0.9% Normal Saline 1,000 ML 1000 ML IV (08:51)
[2021-09-30] MEDS: Ondansetron 4 MG/2 ML Vial IV (08:51)
[2021-09-30] MEDS: Ketorolac 30 MG/ML Syringe IV (08:51)
[2021-09-30 08:52] LABS: Absolute Lymphocyte Count 0.26 X10^3/uL (0.83-4.51); Basophil# 0.03 X10^3/uL; Basophil% 0.6 % (0-1); Eosinophil# 0.02 X10^3/uL; Eosinophils% 0.4 % (0-5); Hematocrit 38.1 % (37-47); Hemoglobin 12.9 g/dL (12.0-15.0); Lymphocyte # 0.26 X10^3/ul (0.83-4.51); Lymphocyte % 5.3 % (19-41); Mean Corp Hgb Conc 33.9 g/dL (32-36); Mean Corpuscular Hgb 30.1 pg (27.0-32.0); Mean Corpuscular Volume 88.8 fL (81-99); Mean Platelet Vol. 9.5 fl (6.2-12.0); Monocyte# 0.52 X10^3/uL; Monocyte% 10.7 % (0-10); NRBC Flagged by Analyzer 0 % (0-5); Neutrophil # 4.02 X10^3/uL (2.7-7.7); Neutrophil % 82.8 % (47-70); POSITIVE DIFFERENTIAL YES; Platelet Count 248 K/mm3 (150-450); RBC Distribution Width CV 11.9 % (11.6-14.6); RBC Distribution Width SD 38.5 fl (35.1-43.9); Red Blood Count 4.29 M/mm3 (4.2-5.4); White Blood Count 4.9 K/mm3 (4.4-11.0)
[2021-09-30 08:55] LABS: Differential Indicated SCAN CRITERIA MET
[2021-09-30 09:08] LABS: AST(SGOT) 20 U/L (15-37); Alanine Aminotransfer ALT/SGPT 31 U/L (13-56); Albumin, Serum 3.6 g/dL (3.2-5.0); Alkaline Phosphatase 45 U/L (45-117); Anion Gap 8 (5-15); BUN 8 mg/dL (7-18); BUN/Creat Ratio 8.9 RATIO (10-20); Calcium,Total 8.6 mg/dL (8.5-10.1); Chloride 109 mmol/L (98-107); Differential Comment SCANNED; EST Glomerular Filtration Rate 78 mL/min (>60); Est Glom Filt Rate - Afr Amer 95 mL/min (>60); Estimated Creatinine Clearance 66.25 ml/min; Globulin 3.5 g/dL (2.2-4.2); Glucose 102 mg/dL (74-106); Potassium 3.6 mmol/L (3.5-5.1); Protein, Total 7.1 g/dL (6.4-8.2); Sodium Level 140 mmol/L (136-145)
== END 2021-09-30 09:53 | disposition home or self-care (01) ==
PROVIDERS: Emergency Provider Emergency Medicine; PCP Internal Medicine
DX: R51.9 Headache, unspecified (principal); B34.9 Viral infection, unspecified; R50.9 Fever, unspecified; J02.9 Acute pharyngitis, unspecified; R09.81 Nasal congestion; R11.2 Nausea with vomiting, unspecified; F17.210 Nicotine dependence, cigarettes, uncomplicated
CPT/HCPCS: 80053; 85025; 87426; 87804; 96361; 96374; 96375; 99283; J7030; A4216; J2405

== ENCOUNTER 2021-11-01 18:19 | Emergency (ER) | payer OTHER, MEDICAID, SELFPAY ==
[2021-11-01 18:20] VITALS: BP 117/84; PULSE 93; RESP 14; TEMP 36.6; O2SAT 99; BMI 25.8
--- NOTE | 2021-11-01 18:45 | ED.RN ---
PT WORKS FOR [employer] IN [place], [place]. PT DOES NOT HAVE IMMEDIATE SUPERVISORS NUMBER. THE ONLY NUMBER PATIENT HAS IS FOR THE MAIN OFFICE LINE [phone]. THIS RN ATTEMPTED TO CALL THIS LINE AND OBTAIN DRUG SCREEN INFORMATION. NO ANSWER. LEFT MESSAGE ON VOICEMAIL TO RETURN CALL. PT ALSO HAD PHONE NUMBER FOR DEONTE WHO IS HEALTH AND ESTIMATING MANAGER AT [phone]. RN SPOKE WITH DEONTE WHO STATES PATIENT WILL NEED A POST ACCIDENT DRUG SCREEN. RN INFORMED PATIENT. [facility] CALLED IN.
--- NOTE | 2021-11-01 20:31 | EDS_ITS ---
HPI History of Present Illness Chief Complaint: Back Informant: patient Narrative Narrative: Upper back pain at work around 3:30 AM today. 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 Was twisting when pain occurred. States movement pain goes down to her lower back. No history of similar. No medications taken. Her job is aware. She states she was being forced to come back to work. She denies any similar symptoms in the past. Denies any allergies. [facility] Medical History Anxiety Depression Ovarian cyst Home Medications bupropion HCl 75 mg PO DAILY 09/30/21 [History Last Taken Unknown] escitalopram oxalate 10 mg PO DAILY 09/30/21 [History Last Taken Unknown] cyclobenzaprine 10 mg PO TID PRN #12 tab 11/01/21 [Rx Last Taken Unknown] ibuprofen 600 mg PO 4X/DAY PRN #20 tab 11/01/21 [Rx Last Taken Unknown] Allergy/AdvReac Type Severity Reaction Status Date / Time No Known Allergies Allergy Verified 11/01/21 18:23 Social History Smoking Status: Current every day smoker tobacco type: e-cigarettes substance use type: does not use ROS ROS ED Constitutional Constitutional ED: Denies chills, fever(s) or sweats Eyes Eyes: Denies change in vision ENT ENT ED: Denies dysphagia or sore throat Cardiovascular Cardiovascular: Denies chest pain, leg edema, palpitations or racing heartbeat Respiratory/Chest Respiratory/Chest: Denies cough, dyspnea or dyspnea on exertion Gastrointestinal Gastrointestinal: Denies abdominal pain, diarrhea, nausea or vomiting Genitourinary Genitourinary ED: Denies dysuria, hematuria or urinary frequency Musculoskeletal Musculoskeletal: Reports back pain; Denies extremity pain or neck pain Integumentary Denies rash or wounds Neurologic Neurologic: Denies headache(s), paresthesias or weakness EXAM Physical Exam Const Vital Signs: 11/01/21 18:20 11/01/21 22:54 Temperature 97.8 F Temperature Source Temporal Pulse Rate 93 80 Respiratory Rate 14 18 Blood Pressure 117/84 H 104/68 Blood Pressure Mean 95 Pulse Ox 99 95 Oxygen Delivery Method Room Air Positive well nourished and well developed General Appearance ED: well developed and NAD HEENT Reports moist mucous membranes normocephalic and atraumatic Eyes PERRL, EOMs intact bilaterally and conjunctivae normal General Eye ED: Yes normal appearance of both eyes Neck no lymphadenopathy and supple General: Negative for tenderness Chest Wall Chest: Negative for tenderness Resp normal respiratory effort and normal air movement Effort and Inspection: symmetric chest movement; Negative for respiratory distress Cardio regular rate, regular rhythm and no murmurs Peripheral Pulses: pulses 2+ throughout GI normal to inspection, nondistended, normoactive bowel sounds and non-tender Palpation: Negative for guarding or rebound tenderness present Back/Spine no CVA tenderness Back/Spine Narrative: Tender palpation upper thoracic mid spine with no step- offs. Lumbar Spine / Lower Back: Negative for straight leg raise positive right or straight leg raise positive - left Extremity normal to inspection General Extremety ED: Negative for edema or tenderness General Extremity: Negative for edema Neuro oriented x3 and no sensory deficits noted Sensorium / Orientation: awake and alert Skin no rashes or lesions noted and no wounds MDM MDM MDM Narrative Medical decision making narrative: Patient presenting with Thoracics strain from work. Treated with Motrin Flexeril x-ray thoracic spine reviewed by myself and read by radiology with possible T4 inferior vertebral endplate fracture. Recommended further imagings. CT scan was obtained which was negative. Patient reassured. Appropriate work restrictions were given. Prescription for Motrin and Flexeril was written along with follow-up with [facility]. Patient is being discharged under pandemic conditions under declared global, national and state disaster activation, with limited medical resources. Patient and community understands this. Results discussed in layman's terms to the patient satisfaction. All questions answered in layman's terms. Patient understands importance of follow-up care as directed. Patient has been instructed to return to the ED immediately if new symptoms, problems, or questions occur. We mutually agree with the plan of disposition. The patient understand that they may call or return with any questions or concerns at any time. Radiography Diagnostic Testing: Clinical Impression(s) from Imaging Studies Thoracic Spine X-Ray 11/01/21 20:40 IMPRESSION: Possible, left-sided, T4 inferior vertebral body endplate fracture suggested on the AP view. Correlation with multiplanar imaging is recommended. Electronically Signed: Kenneth Williamson DO at 21:11 EST , Thoracic Spine CT 11/01/21 21:35 IMPRESSION: Intact T4 inferior endplate without fracture. Other visualized cervical and upper thoracic lumbar vertebrae are intact with no fracture. Electronically Signed: Kenneth Williamson, at 22:31 EST , Discharge Plan Triage Chief Complaint: Back ED Provider: Chris Braga Dx/Rx/DC Orders Clinical Impression: Acute thoracic myofascial strain Instructions: ED Thoracic Spine Strain Prescriptions: New ibuprofen 600 MG tablet 600 mg PO 4X/DAY PRN (Reason: Pain Or Fever) Qty: 20 RF: 0 cyclobenzaprine 10 mg tablet 10 mg PO TID PRN (Reason: muscle spasm) Qty: 12 RF: 0 No Action escitalopram oxalate 10 mg tablet 10 mg PO DAILY RF: 0 bupropion HCl 75 mg tablet 75 mg PO DAILY RF: 0 Primary Care Provider: Tata Rock Referrals: Tata Rock MD [Primary Care Provider] - [facility] - 2 Days Disposition Disposition: Home, Self Care Discharge Date/Time: 11/01/21 22:54
--- NOTE | 2021-11-01 20:40 | RAD_ITS ---
INDICATION: injury EXAMINATION/TECHNIQUE: X-RAY - XR Spine Thoracic 3 Views COMPARISON: 12/07/2018 chest x-ray. FINDINGS: VERTEBRAE: Preserved vertebral body height. Questionable fracture involving the inferior endplate of T4 on the left, only visible on the AP view. No spondylolisthesis. Preservation of the normal thoracic kyphosis. No significant facet arthropathy. DISCS: Disc spaces are relatively well maintained with mild, multifocal degenerative endplate sclerosis and minimal osteophytosis, most notable at T9-10 level. INCLUDED CHEST/ABDOMEN: No acute abnormalities. RAD/Thoracic Spine 3 Views IMPRESSION: Possible, left-sided, T4 inferior vertebral body endplate fracture suggested on the AP view. Correlation with multiplanar imaging is recommended. Electronically Signed: Kenneth Williamson DO at 21:11 EST ,
[2021-11-01] MEDS: cycloBENZAPRine HCl 10 MG Tablet PO (21:04)
[2021-11-01] MEDS: Ibuprofen 600 MG Tablet PO (21:04)
--- NOTE | 2021-11-01 21:35 | CT_ITS ---
INDICATION: BACK PAIN -- poss t4 fx EXAMINATION: CT THORACIC SPINE - CT Spine Thoracic W/O Contrast Injection TECHNIQUE: Helically acquired images were obtained of the distal cervical and proximal thoracic spine. 2D reformats were reviewed. A radiation dose optimization technique was used for this scan. IV Contrast dosage and agent: None. COMPARISON: Thoracic spine x-ray. FINDINGS: VERTEBRAE: No fracture. No discrete lytic or blastic abnormality observed. VERTEBRAL ALIGNMENT: Unremarkable. There is preservation of the normal thoracic kyphosis. DISCS: Disc heights are preserved. VISUALIZED THORAX: Visualized thoracic aorta is nondilated. Lung salas are clear. CT/Spine Thoracic without Contras IMPRESSION: Intact T4 inferior endplate without fracture. Other visualized cervical and upper thoracic lumbar vertebrae are intact with no fracture. Electronically Signed: Kenneth Williamson DO at 22:31 EST ,
[2021-11-01 22:54] VITALS: BP 104/68; PULSE 80; RESP 18; O2SAT 95
== END 2021-11-01 22:54 | disposition home or self-care (01) ==
PROVIDERS: Emergency Provider Emergency Medicine; PCP Internal Medicine; Visit Provider Emergency Medicine
DX: S29.019A Strain of muscle and tendon of unspecified wall of thorax, initial encounter (principal); F17.290 Nicotine dependence, other tobacco product, uncomplicated; F41.9 Anxiety disorder, unspecified; F32.A Depression, unspecified; X58.XXXA Exposure to other specified factors, initial encounter; Z79.899 Other long term (current) drug therapy
CPT/HCPCS: 72072; 72128; 99283; A4216

== ENCOUNTER → 2023-01-22 | Outpatient (CLI) | payer MEDICAID, SELFPAY ==
[2023-01-22 09:43] LABS: Lipase 21 U/L (13-75)
== END | disposition home or self-care (01) ==
LOC: LABSPEC 09:30
PROVIDERS: PCP Internal Medicine; Referring Provider Physician Assistant; Visit Provider Physician Assistant
DX: R10.11 Right upper quadrant pain (principal)
CPT/HCPCS: 83690

== ENCOUNTER 2023-08-07 15:56 | Emergency (ER) | payer MEDICAID, SELFPAY ==
[2023-08-07 15:57] VITALS: BP 103/81; PULSE 93; RESP 16; TEMP 36; O2SAT 97; BMI 31.1
--- NOTE | 2023-08-07 16:47 | EDS_ITS ---
HPI History of Present Illness Chief Complaint: Headache Informant: patient and spouse/S.O. Narrative Narrative: 33-year-old female presenting to the emergency room with chief complaint of headache and fever. Patient states she went to bed last night felt fine. When she woke up this morning she developed diffuse myalgias and felt like a bus hit me during the morning hours. She ended up leaving work. When she returned home she had 102 fever. She took Tylenol 1000 mg. She states she feels little dehydrated. She is 13 weeks . She has been having -induced nausea has been taking Zofran over the last 5 days. This has had a constipating effect on her. She denies any nasal congestion sore throat or cough. No rashes. [facility] Medical History Anxiety Depression Ovarian cyst Home Medications docosahexaenoic acid 200 mg capsule ( DHA) mg PO DAILY 08/07/23 [History Last Taken Unknown] ondansetron HCl 4 mg tablet mg 08/07/23 [History Last Taken Unknown] sertraline 25 mg tablet mg 08/07/23 [History Last Taken Unknown] Allergy/AdvReac Type Severity Reaction Status Date / Time No Known Allergies Allergy Verified 08/07/23 15:57 Social History Smoking Status: Current every day smoker tobacco type: e-cigarettes substance use type: does not use ROS ROS ED Constitutional Constitutional ED: Reports chills and fever(s); Denies subjective or weight loss Eyes Eyes: Denies change in vision or diplopia ENT ENT ED: Denies ear pain, rhinorrhea or sore throat Cardiovascular Cardiovascular: Denies chest pain, orthopnea, palpitations or racing heartbeat Respiratory/Chest Respiratory/Chest: Denies cough, dyspnea or orthopnea Gastrointestinal Gastrointestinal: Denies abdominal pain, diarrhea, nausea or vomiting Genitourinary Genitourinary ED: Denies dysuria, hematuria or urinary frequency Musculoskeletal Musculoskeletal: Reports myalgias; Denies arthralgias, back pain or neck pain Integumentary Denies abscess or rash Neurologic Neurologic: Reports headache(s); Denies weakness Psychiatric Psychiatric: Denies anxiety, depression, suicidal ideation or suicidal thoughts Endocrine Endocrinology: Denies polydipsia, polyphagia or polyuria Allergic/Immunologic Allergic/Immunologic ED: Denies mouth swelling, tongue swelling or urticaria EXAM Physical Exam Const Vital Signs: 08/07/23 15:57 08/07/23 16:11 Temperature 96.8 F L Temperature Source Temporal Pulse Rate 93 Respiratory Rate 16 Respiratory Effort Normal Respiratory Pattern Normal Blood Pressure 103/81 H Blood Pressure Mean 88 Pulse Ox 97 Oxygen Delivery Method Room Air Positive well nourished and well developed General Appearance ED: well developed HEENT Reports normocephalic, head/scalp atraumatic and moist mucous membranes Eyes PERRL and EOMs intact bilaterally Neck no lymphadenopathy, supple and no JVD Resp normal respiratory effort and clear to auscultation bilaterally Cardio regular rate, regular rhythm and no murmurs GI normal to inspection, nondistended, normoactive bowel sounds and non-tender Palpation: soft Back/Spine no CVA tenderness and normal ROM Extremity normal to inspection General Extremety ED: Negative for edema General Extremity: Negative for edema Neuro oriented x3 and CN's II-XII intact bilaterally Sensorium / Orientation: alert Motor Exam: strength 5/5 throughout Psych mental status grossly normal Mood & Affect: Negative for depressed or tearful Skin no rashes or lesions noted and no wounds Discharge Plan Triage Chief Complaint: Headache ED Provider: Trent Frausto Dx/Rx/DC Orders Prescriptions: No Action ondansetron HCl 4 mg tablet Patient Comments: take 1 tablet by mouth every 8 hours if needed for nausea and vomiting sertraline 25 mg tablet Patient Comments: take 1 tablet by mouth once daily OKAY TO START WITH 1/2 TABLET D... (REFER TO PRESCRIPTION NOTES). DHA 200 mg capsule PO DAILY Primary Care Provider: Tata Rock Referrals: Tata Rock MD [Primary Care Provider] -
[2023-08-07] MEDS: 0.9% Normal Saline (1000mL) 1,000 ML 1000 ML IV (17:25)
[2023-08-07 17:34] LABS: Bacteria 0 SEEN /hpf (None Seen); Mucous, Urine 0 SEEN /hpf (<or=2+); Red Blood Cells-Urine 0 SEEN /hpf (0-5); Squamous Epithelial Cells - UA 0 SEEN /hpf (5-10); White Blood Cells 0 SEEN /hpf (0-5)
[2023-08-07 17:41] LABS: Color, Urine Yellow (Yellow); Glucose, Dipstick Normal (Normal); Ketone-Dipstick Negative (Negative); Leukocyte Esterase-Dipstick Negative /ul (Negative); Nitrite-Dipstick Negative (Negative); Occult Blood-Urine Negative /ul (Negative); Protein-Dipstick Negative (Negative); Urine Bilirubin Dipstick Negative (Negative); Urine Clarity Clear (Clear); Urine Urobilinogen Normal (Normal)
[2023-08-07 18:42] VITALS: BP 108/74; PULSE 88; RESP 16; O2SAT 99
== END 2023-08-07 19:15 | disposition home or self-care (01) ==
PROVIDERS: Emergency Provider Emergency Medicine; PCP Internal Medicine; Visit Provider Emergency Medicine
DX: O99.891 Other specified diseases and conditions complicating pregnancy (principal); O99.331 Smoking (tobacco) complicating pregnancy, first trimester; Z3A.13 13 weeks gestation of pregnancy; F32.A Depression, unspecified; Z79.899 Other long term (current) drug therapy; F17.200 Nicotine dependence, unspecified, uncomplicated; R51.9 Headache, unspecified; O99.341 Other mental disorders complicating pregnancy, first trimester; O26.891 Other specified pregnancy related conditions, first trimester; R50.9 Fever, unspecified
CPT/HCPCS: 81001; 87428; 96360; 99284; J7030; A4216

== ENCOUNTER 2023-12-13 22:11 | Emergency (ER) | payer MEDICAID, SELFPAY ==
[2023-12-13 22:11] VITALS: BP 112/78; PULSE 81; RESP 16; O2SAT 97
[2023-12-13 22:12] VITALS: BP 107/71; PULSE 80; RESP 20; TEMP 36.1; O2SAT 96; BMI 34.1
--- NOTE | 2023-12-13 22:28 | ED.VIS.CHEST ---
HPI History of Present Illness Chief Complaint: Chest Pain [facility] Medical History (Updated 12/13/23 @ 22:32 by Mima Prather) Anxiety Depression Gestational diabetes Ovarian cyst Home Medications docosahexaenoic acid 200 mg capsule ( DHA) mg PO DAILY 08/07/23 [History Last Taken Unknown] ondansetron HCl 4 mg tablet mg 08/07/23 [History Last Taken Unknown] sertraline 25 mg tablet mg 08/07/23 [History Last Taken Unknown] Allergy/AdvReac Type Severity Reaction Status Date / Time No Known Allergies Allergy Verified 12/13/23 22:12 Social History Smoking Status: Current every day smoker tobacco type: e-cigarettes substance use type: does not use EXAM Physical Exam Const Vital Signs: 12/13/23 22:12 12/13/23 22:11 12/13/23 22:31 Temperature 97 F L Temperature Source Temporal Pulse Rate 80 81 Respiratory Rate 20 H 16 Respiratory Effort Blood Pressure 107/71 112/78 Blood Pressure Mean 83 89 Pulse Ox 96 97 98 Oxygen Delivery Method Room Air Room Air Room Air 12/13/23 22:32 12/13/23 23:45 12/14/23 00:15 Temperature Temperature Source Pulse Rate 76 77 Respiratory Rate 13 12 Respiratory Effort Short of Breath Blood Pressure 113/65 115/59 L Blood Pressure Mean 77 75 Pulse Ox 100 100 Oxygen Delivery Method 12/14/23 00:45 12/14/23 01:04 Temperature Temperature Source Pulse Rate 72 75 Respiratory Rate 10 L 13 Respiratory Effort Blood Pressure 100/45 L 97/51 L Blood Pressure Mean 60 66 Pulse Ox 100 100 Oxygen Delivery Method Room Air MDM MDM MDM Narrative Medical decision making narrative: HISTORY OF PRESENT ILLNESS: 33-year-old female presents with chest pain. States pain radiates to the back and jaw. States she is 32 weeks . Pain is not exertional. It is worse with food and drinking. States has history of GERD has been taking Tums and Pepcid without relief. Denies r family history of early cardiac . Denies any increased bleeding. Denies any leg swelling. No vomiting or diarrhea recently. She is a G3, P2. No history of miscarriage. No new abdominal pain, vaginal bleeding, passage of any tissue. Normal movement. Patient denies sudden onset of pain, no tearing sensation, no migratory symptoms, no new numbness, weakness or loss of sensation. Patient denies family history or personal history of Marfan syndrome or Alexus-Danlos. The patient denies recent surgery in the last 4 weeks or immobilization in the last 3 days, denies previous diagnosis of DVT or PE, hemoptysis, unilateral leg swelling or malignancy with treatment the last 6 months. No estrogen use noted. REVIEW OF SYSTEMS: All other systems reviewed and are negative except as noted in the history of present illness. At least 10 review of systems reviewed and are negative except as noted in history of present illness. PHYSICAL EXAM: Nursing triage notes reviewed, Vital signs reviewed Constitutional: please see mdm HENT: MMM Eyes: Pupils equal round and reactive to light, Extraocular muscles intact Neck: No stridor, no JVD, full neck ROM Lungs: Clear to auscultation, No wheezing or rales. No increased work of breathing, no conversational dyspnea, no accessory muscle use, no nasal flaring. No respiratory distress noted Heart: Regular rate and rhythm, No murmurs, No rubs and No gallops, 2+ distal pulses (radial, femoral, posterior tibial) in all extremities Abdomen: Soft, there is no tenderness, rigidity, rebound or guarding, no obvious peritoneal signs, no palpable pulsatile abdominal masses, no auscultated abdominal bruit : No CVAT Extremities: No edema Neuro: No focal neurological deficits, cranial nerves II through XII intact, 5/5 strength in all extremities. Intact sensation to light touch in all extremities, 2+ reflexes bilateral patella tendons. Normal gait. No ataxia. Skin: No rash or lesions noted MEDICAL DECISION MAKING: Chief Complaint: Chest pain External records reviewed: No recent cardiac catheterizations, stress test or echocardiograms noted in the chart Factors affecting care: 32 weeks OB, GERD Social determinants of health: Denies illicit drug use History obtained from others: Patient's boyfriend Consults: none [facility] Narrative: Patient was initially hemodynamically stable, afebrile and nontoxic-appearing. Exam without focal cardiopulmonary normalities. No friction rubs. No pulse deficits. No leg swelling or calf tenderness. I considered the following differential diagnosis: ACS, arrhythmia, anemia, electrolyte abnormality, pneumonia, pneumothorax, GI etiology, PE ALL IMAGES (IF OBTAINED) HAVE BEEN PERSONALLY REVIEWED AND INTERPRETED BY MYSELF. EKG with normal sinus rhythm, normal axis, normal intervals, no ST or T wave changes to suggest ischemia. No evidence of WPW, Brugada, ARVD. I have personally reviewed the patient's chest x-ray. Chest x-ray is unremarkable for pulmonary edema, pneumothorax, pneumonia or focal cardiopulmonary abnormality. CBC with marked leukocytosis suggestive of systemic inflammation, mild anemia, no thrombocytopenia BMP with no significant electrolyte abnormalities, no anion gap to suggest endorgan perfusion, no evidence of metabolic acidosis High-sensitivity troponin is negative, no evidence of myocardial ischemia x 2 The Synthesis of the patient's history, physical exam, labs images suggest no acute life-limiting etiology. Positive elevated white blood cell count she did have obvious focus of infection. No signs of pneumonia, pericarditis, viral illness. She is likely suffering from -induced GERD she was given OB follow-up instructions and strict return precautions. PE less likely given low risk Wells score. Aortic dissection is thought to be less likely given no sudden ripping or tearing pain, migratory pain, palpable pulse inequalities, no focal neurologic deficits concurrent with chest pain. Chance of dissection less than 10/1999. Pericarditis less likely given no pathognomonic EKG changes (no diffuse ST elevations, MI depressions). GI etiology (i.e. Boerhaave syndrome) less likely given no chest or neck crepitus, no vomiting or forced retching. I completed a HEART Score to screen for Major Adverse Cardiac Event (MACE) in this patient. The evidence indicates that the patient is very low risk for MACE and this is consistent with my clinical intuition. The risk of further workup or hospitalization for MACE is likely higher than the risk of the patient having a MACE. It is, therefore, in the patient?s best interest not to do additional emergent testing or to be hospitalized for MACE at this time. Shared Decision-Making No hospitalization indicated I have discussed with the patient my clinical impression and the result of the HEART Score to screen for MACE, as well as the risks of further testing and hospitalization. The HEART Score shows that the risk for MACE is less than 1%. Although the risk of MACE has not been completely eliminated, the risks of further testing or hospitalization for MACE likely exceed any potential benefit, and the patient agrees with not pursuing further emergent evaluation or hospitalization for MACE at this time. heart tones 160 was reassuring given patient is no clinical symptoms of loss or labor. The patient and/or family, caregivers express understanding. The patient and/or family, caregivers agrees with the plan. Total critical care time today provided was at least 0 minutes. This excludes separately billable procedures. Critical care time (if documented) is secondary to the patient having high probability of clinically significant/life threatening deterioration in the patient's condition which required my urgent intervention. Impression: 1. Chest pain 2. Leukocytosis 3. Anemia 4. Third trimester Rony Burgess, Lab Data Labs: Laboratory Results - last 24 hr 12/13/23 12/14/23 22:35 00:50 WBC 19.8 H RBC 3.80 L Hgb 11.2 L Hct 34.3 L MCV 90.3 MCH 29.5 MCHC 32.7 RDW Std Deviation 43.5 RDW Coeff of Jamil 13.2 Plt Count 311 MPV 9.8 Immature Gran % (Auto) 2.100 H Neut % (Auto) 68.4 Lymph % (Auto) 18.8 L [place] % (Auto) 7.8 Eos % (Auto) 2.3 Baso % (Auto) 0.6 Absolute Neuts (auto) 13.5 H Absolute Lymphs (auto) 3.72 Nucleated RBC % 0 Differential Comment SEE COMMENT Diff Path Review May foll Platelet Estimate ADEQUATE RBC Morphology N CHROM Anisocytosis RARE Macrocytosis RARE Sodium 139 Potassium 3.4 L Chloride 110 H Carbon Dioxide 23.0 Anion Gap 6 BUN 9 Creatinine 0.46 L Estim Creat Clear Calc 165.14 Est GFR (MDRD) Af Amer 203 Est GFR (MDRD) Non-Af 167 BUN/Creatinine Ratio 19.5 Glucose 138 H Calcium 9.0 Troponin I High Sens 4 5 Radiography Diagnostic Testing: Clinical Impression(s) from Imaging Studies Chest X-Ray 12/13/23 22:29 IMPRESSION: Normal x-ray examination of the chest. Electronically Signed: Ari Isidro MD at 23:43 EST , Discharge Plan Triage Chief Complaint: Chest Pain ED Provider: Rony Burgess Dx/Rx/DC Orders Instructions: Chest Pain [facility] Prescriptions: No Action ondansetron HCl 4 mg tablet Patient Comments: take 1 tablet by mouth every 8 hours if needed for nausea and vomiting sertraline 25 mg tablet Patient Comments: take 1 tablet by mouth once daily OKAY TO START WITH 1/2 TABLET D... (REFER TO PRESCRIPTION NOTES). DHA 200 mg capsule PO DAILY Primary Care Provider: Tata Rock Referrals: Tata Rock MD [Primary Care Provider] - Activity Restrictions/Additional Instructions: Thank you for trusting us with your care today! No clear life or limb threatening issues with your chest or heart were found. Please take Tylenol (2 pills, 650 mg) every 6 hours as needed for pain and fever control. Please return to the emergency department if your symptoms change or worsen. Please follow with your primary care physician for further outpatient evaluation and management. Disposition Disposition: Home, Self Care
--- NOTE | 2023-12-13 22:29 | RAD_ITS ---
STUDY: X-RAY CHEST REASON FOR EXAM: Female, 33 years old. chest pain TECHNIQUE: Single AP portable view of the chest. COMPARISON: 09/05/2017 FINDINGS: The lungs are clear and expanded. There is no demonstrated pleural abnormality. Normal size heart. Normal mediastinum and jonny. Normal visualized pulmonary arteries. Normal visualized aortic arch and descending thoracic aorta. Normal visualized thoracic spine. Normal visualized ribs, clavicles, and shoulders. There is no demonstrated abnormality of the visualized soft tissue structures of the upper abdomen. RAD/Chest 1 View (Portable) IMPRESSION: Normal x-ray examination of the chest. Electronically Signed: Ari Isidro MD at 23:43 EST ,
--- NOTE | 2023-12-13 22:29 | EKG12_ITS ---
Test Reason : CP Blood Pressure : / mmHG Vent. Rate : 078 BPM Atrial Rate : 078 BPM P-R Int : 142 ms QRS Dur : 090 ms QT Int : 390 ms P-R-T Axes : 060 079 046 degrees QTc Int : 444 ms Normal sinus rhythm Nonspecific T wave abnormality Abnormal ECG Confirmed by Kenneth Villaseñor ([id number]), purchasing expeditor ELENO PINTO ([id number]) on 12/16/2023 8:15:47 AM Referred By: ALICIA Confirmed By:Kenneth Villaseñor
[2023-12-13 22:31] VITALS: O2SAT 98
[2023-12-13] MEDS: 0.9% Normal Saline (1000mL) 1,000 ML 500 ML IV (22:41)
[2023-12-13 22:45] LABS: Absolute Lymphocyte Count 3.72 X10^3/uL (0.83-4.51); Absolute Neutrophil Count 13.5 X10^3/uL (2.0-7.7); Basophil# 0.12 X10^3/uL; Basophil% 0.6 % (0-1); Eosinophil# 0.45 X10^3/uL; Eosinophils% 2.3 % (0-5); Hematocrit 34.3 % (37-47); Hemoglobin 11.2 g/dL (12.0-15.0); Lymphocyte # 3.72 X10^3/ul (0.83-4.51); Lymphocyte % 18.8 % (19-41); Mean Corp Hgb Conc 32.7 g/dL (32-36); Mean Corpuscular Hgb 29.5 pg (27.0-32.0); Mean Corpuscular Volume 90.3 fL (81-99); Mean Platelet Vol. 9.8 fl (6.2-12.0); Monocyte# 1.54 X10^3/uL; Monocyte% 7.8 % (0-10); NRBC Flagged by Analyzer 0 % (0-5); Neutrophil # 13.52 X10^3/uL (2.7-7.7); Neutrophil % 68.4 % (47-70); POSITIVE DIFFERENTIAL YES; Platelet Count 311 K/mm3 (150-450); RBC Distribution Width CV 13.2 % (11.6-14.6); RBC Distribution Width SD 43.5 fl (35.1-43.9); White Blood Count 19.8 K/mm3 (4.4-11.0)
[2023-12-13 22:46] LABS: Differential Indicated SCAN CRITERIA MET
--- OUTSIDE RECORDS SUMMARY | 2023-12-13 22:46 | XMS RPT_ITS | CCD ---
Author Name Unknown Address [id number] [place] [address] Organization [facility] Care Team Providers Care Tipple Greaser Name Role Phone Pranav ESTRADA, Kishor Primary Care Provider [phone] PHYSICIAN, NONE Primary Care Physician Unavailab cassy Rock MD, Kishor Primary Care Provider Pranav ESTRADA, Kishor Primary Care Provider GANTA, KISHOR Primary Care Unavailable HAI CHAVIRA Referring Unavailable MANUELA LUZ Referring Unavail able GANTA, KISHOR Primary Care Unavailable GANTA, KISHOR Primary Care Unavailable MANUELA LUZ Referring Unavail able GANTA, KISHOR Primary Care Unavailable ABELINO KESSLER Attending Unavailable GANTA, KISHOR Primary Care Unavailable GANTA, KISHOR Primary Care Unavailable GANTA, KISHOR Primary Care Unavailable HAYLEY PARR Attending Unavailable GANTA, KISHOR Primary Care Unavailable VIVIAN GATES Attending Unavailable GANTA, KISHOR Primary Care Unavailable SUH REEVES Referring Unavailable GANTA, KISHOR Attending Unavailable GANTA, KISHOR Primary Care Unavailable GANTA, KISHOR Primary Care Unavailable GANTA, KISHOR Primary Care Unavailable ABELINO KESSLER Attending Unavailable GANTA, KISHOR Primary Care Unavailable RUPAL EDWIGE Referring Unavailable GANTA, KISHOR Primary Care Unavailable RUPAL, EDWIGE Referring Unavailable GANTA, KISHOR Primary Care Unavailable SHU REEVES Attending Unavailable GANTA, KISHOR Primary Care Unavailable REEVESSHU Referring Unavailable GANTA, KISHOR Primary Care Unavailable RUPAL, EDWIGE Attending Unavailable GANTA, KISHOR Primary Care Unavailable RUPAL, EDWIGE Attending Unavailable GANTA, KISHOR Primary Care Unavailable RUPAL, EDWIGE Referring Unavailable GANTA, KISHOR Primary Care Unavailable GANTA, KISHOR Primary Care Unavailable SHU REEVES Attending Unavailable GANTA, KISHOR Primary Care Unavailable SHU REEVES Attending Unavailable GANTA, KISHOR Primary Care Unavailable MANUELA LUZ Referring Unavail able GANTA, KISHOR Primary Care Unavailable GANTA, KISHOR Primary Care Unavailable GANTA, KISHOR Primary Care Unavailable REEVES, SHU Attending Unavailable REEVES, SHU Referring Unavailable GANTA, KISHOR Primary Care Unavailable REEVES, SHU Referring Unavailable GANTA, KISHOR Primary Care Unavailable GANTA, KISHOR Primary Care Unavailable HAI CHAVIRA Referring Unavailable GANTA, KISHOR Primary Care Unavailable EDWIGE GOLDSMITH Attending Unavailable GANTA, KISHOR Primary Care Unavailable REEVES, SHU Referring Unavailable HENRRY IBRAHIM Attending Unavailable GANTA, KISHOR Primary Care Unavailable REEVES, SHU Referring Unavailable GANTA, KISHOR Primary Care Unavailable REEVES, SHU Attending Unavailable MANUELA LUZ Attending Unavail able GANTA, KISHOR Primary Care Unavailable GANTA, KISHOR Primary Care Unavailable ABELINO KESSLER Referring Unavailable Medications Current Medications Medication Drug Class(es) Dates Sig (Normalized) Sig (Original) Blood-Glucose Meter (2 sources) Start: 11-19-2023 End: 11-20-2023 Blood-Glucose Meter Indications: Abnormal maternal glucose tolerance, antepartum 1 Each as directed for 1 day. 1 Each 0 11/19/2023 11/20/2023 Active Completed/Discontinued Medications Medication Drug Class(es) Dates Sig (Normalized) Sig (Original) 24 hr buPROPion hydrochloride 150 mg extended release oral tablet (20 sources) Aminoketone Start: 05-13-2023 End: 07-11-2023 take 1 tablet by mouth once daily buPROPion XL (WELLBUTRIN XL) 150 mg 24 hr tablet Indications: Anxiety , Panic attacks Take 1 tablet by mouth once daily. 30 tablet 2 05/13/2023 07/11/2023 Discontinued (Course of therapy completed) Problems Active Problems Problem Classification Problem Date Documented Da te Episodic/Chronic Adjustment disorders (20 sources) Reactive depression (situational); Translations: [Adjustment disorder with depressed mood] Onset: 05-24-2021 05-24-2021 Chronic Anxiety disorders (20 sources) Mixed anxiety and depressive disorder; Translations: [Anxiety disorder, unspecified] Onset: 05-24-2021 10-31-2021 Chronic Attention-deficit, conduct, and disruptive behavior disorders (1 source) Attention deficit hyperactivity disorder; Translations: [Attention-deficit hyperactivity disorder, unspecified type] Chronic Cancer of cervix (12 sources) Abnormal cytological finding in specimen from female genital organ; Translations: [Atypical squamous cells cannot exclude high grade squamous intraepithelial lesion on cytologic smear of cervix (ASC-H)] Onset: 10-15-2023 10-15-2023 Episodic Conditions associated with dizziness or vertigo (1 source) Dizziness; Translations: [Dizziness and giddiness] Episodic Contraceptive and procreative management (12 sources) Sterilization requested; Translations: [Encounter for sterilization] Onset: 11-17-2023 11-17-2023 Episodic Diabetes or abnormal glucose tolerance complicating ; childbirth; or the puerperium (20 sources) Impaired glucose tolerance in ; Translations: [Abnormal glucose complicating ] Onset: 11-18-2023 11-18-2023 Episodic Headache; including migraine (1 source) Headache; Translations: [Headache, unspecified headache type] 11-11-2023 Episodic Menstrual disorders (1 source) Irregular periods; Translations: [Irregular menstruation, unspecified] Chronic Mood disorders (1 source) Recurrent major depressive disorder in partial remission co-occurrent with anxiety; Translations: [Major depressive disorder, recurrent, in partial remission] Chronic Nonspecific chest pain (1 source) Chest pain; Translations: [Chest pain, unspecified] Episodic Nutritional deficiencies (2 sources) Vitamin D deficiency; Translations: [Vitamin D deficiency, unspecified] Onset: 05-13-2023 05-13-2023 Chronic Other aftercare (2 sources) Patient encounter status; Translations: [Encounter for therapeutic drug level monitoring] 05-13-2023 Episodic Other complications of (1 source) Heartburn; Translations: [Other specified related conditions, unspecified trimester] 11-17-2023 Episodic Other gastrointestinal disorders (1 source) Constipation; Translations: [Constipation, unspecified] 08-04-2023 Episodic Other nervous system disorders (20 sources) Disturbance of attention; Translations: [Attention and concentration deficit] Onset: 10-31-2021 10-31-2021 Chronic Other nervous system disorders (1 source) Numbness and tingling sensation of skin; Translations: [Anesthesia of skin] Episodic Other upper respiratory disease (20 sources) Rhinitis; Translations: [Chronic rhinitis] Onset: 11-02-2014 11-02-2014 Chronic Other upper respiratory infections (2 sources) Acute upper respiratory infection; Translations: [Acute upper respiratory infection, unspecified] Episodic Residual codes; unclassified (1 source) Left before being seen; Translations: [Procedure and treatment not carried out due to patient leaving prior to being seen by health care provider] Episodic Residual codes; unclassified (2 sources) Gestation period, 9 weeks; Translations: [9 weeks gestation of ] 07-11-2023 Episodic Residual codes; unclassified (1 source) Gestation period, 12 weeks; Translations: [12 weeks gestation of ] 08-04-2023 Episodic Residual codes; unclassified (1 source) Gestation period, 17 weeks; Translations: [17 weeks gestation of ] 09-03-2023 Episodic Residual codes; unclassified (1 source) Gestation period, 27 weeks; Translations: [27 weeks gestation of ] 11-17-2023 Episodic Residual codes; unclassified (1 source) Gestation period, 29 weeks; Translations: [29 weeks gestation of ] 12-01-2023 Episodic Residual codes; unclassified (1 source) Gestation period, 31 weeks; Translations: [31 weeks gestation of ] 12-10-2023 Episodic Residual codes; unclassified (1 source) 29 weeks gestation of ; Translations: [29 weeks gestation of ] Onset: 12-10-2023 Episodic Residual codes; unclassified (1 source) 24 weeks gestation of ; Translations: [24 weeks gestation of ] Onset: 10-23-2023 Episodic Past or Other Problems Problem Classification Problem Date Documented Da te Episodic/Chronic Abdominal pain (3 sources) Right upper quadrant pain; Translations: [Pain in pelvis] Onset: 01-22-2023 05-28-2023 Episodic Malaise and fatigue (3 sources) Fatigue; Translations: [Other fatigue] Onset: 05-13-2023 05-13-2023 Episodic Nonmalignant breast conditions (3 sources) Pain of breast; Translations: [Mastodynia] Onset: 06-04-2023 05-13-2023 Episodic Other aftercare (1 source) Encounter for therapeutic drug level monitoring; Translations: [Encounter for therapeutic drug monitoring] Onset: 05-13-2023 Episodic Other complications of (18 sources) Rubella non-immune; Translations: [Supervision of other high risk pregnancies, unspecified trimester] Onset: 07-16-2023 07-16-2023 Episodic Other complications of (19 sources) High risk ; Translations: [Supervision of other high risk pregnancies, first trimester] Onset: 07-16-2023 07-16-2023 Episodic Other and delivery including normal (9 sources) Urine test positive; Translations: [Encounter for test, result positive] Onset: 07-11-2023 06-06-2023 Episodic Other screening for suspected conditions (not mental disorders or infectious disease) (2 sources) Cancer cervix screening status; Translations: [Encounter for screening for malignant neoplasm of cervix] Onset: 07-11-2023 07-14-2023 Episodic Otitis media and related conditions (20 sources) Dysfunction of eustachian tube; Translations: [Other specified disorders of Eustachian tube, unspecified ear] Onset: 11-02-2014 11-22-2014 Episodic Residual codes; unclassified (1 source) 17 weeks gestation of ; Translations: [17 weeks gestation of ] Onset: 09-03-2023 Episodic Residual codes; unclassified (1 source) 12 weeks gestation of ; Translations: [12 weeks gestation of ] Onset: 08-04-2023 Episodic Residual codes; unclassified (1 source) 9 weeks gestation of ; Translations: [9 weeks gestation of ] Onset: 07-11-2023 Episodic Spondylosis; intervertebral disc disorders; other back problems (20 sources) Thoracic back pain; Translations: [Pain in thoracic spine] Onset: 11-22-2014 Episodic Results Test Name Value Interpretation Reference Range Facil ity Vital Signs Date Time Vital Sign Value Performing Clinician Facility 12-10-2023 09:37-0500 Diastolic blood pressure 62 mm[Hg] Ob Ultrasound Work Phone: [facility] 12-10-2023 09:37-0500 Systolic blood pressure 102 mm[Hg] Ob Ultrasound Work Phone: [facility] 12-01-2023 16:20-0500 Body weight 78.02 kg Shu Reeves APRN.CNM Work Phone: [facility] 12-01-2023 16:20-0500 Diastolic blood pressure 68 mm[Hg] Shu Reeves BUSINESS RULES ANALYST.CNM Work Phone: [facility] 12-01-2023 16:20-0500 Systolic blood pressure 108 mm[Hg] Shu Reeves BUSINESS RULES ANALYST.CNM Work Phone: [facility] 11-24-2023 15:19-0500 Body height [address] [facility] 11-24-2023 15:19-0500 Body weight 78.[address] [facility] 11-17-2023 15:31-0500 Body weight 77.2 kg Abelino Kessler MD Work Phone: [facility] 11-17-2023 15:31-0500 Diastolic blood pressure 62 mm[Hg] Abelino Kessler MD Work Phone: [facility] 11-17-2023 15:31-0500 Systolic blood pressure 100 mm[Hg] Abelino Kessler MD Work Phone: [facility] 11-11-2023 09:22-0500 Body temperature 97.9 [degF] Zuleyma Praisler-Wood BUSINESS RULES ANALYST.EXECUTIVE ADVISOR Work Phone: [facility] 11-11-2023 09:22-0500 Body weight 78.93 kg Zuleyma Praisler-Wood BUSINESS RULES ANALYST.EXECUTIVE ADVISOR Work Phone: [facility] 11-11-2023 09:22-0500 Diastolic blood pressure 62 mm[Hg] Zuleyma Praisler-Wood BUSINESS RULES ANALYST.EXECUTIVE ADVISOR Work Phone: [facility] 11-11-2023 09:22-0500 Heart rate 82 /min Zuleyma Praisler-Wood BUSINESS RULES ANALYST.EXECUTIVE ADVISOR Work Phone: [facility] 11-11-2023 09:22-0500 Respiratory rate 16 /min Zuleyma Praisler-Wood BUSINESS RULES ANALYST.EXECUTIVE ADVISOR Work Phone: [facility] 11-11-2023 09:22-0500 SaO2% (BldA) [Mass fraction] 98 % Zuleyma Praisler-Wood BUSINESS RULES ANALYST.EXECUTIVE ADVISOR Work Phone: [facility] 11-11-2023 09:22-0500 Systolic blood pressure 110 mm[Hg] Zuleyma Praisler-Wood BUSINESS RULES ANALYST.EXECUTIVE ADVISOR Work Phone: [facility] 09-24-2023 12:07-0500 Body temperature 97.9 [degF] Zuleyma Praisler-Wood BUSINESS RULES ANALYST.EXECUTIVE ADVISOR Work Phone: [facility] 09-24-2023 12:07-0500 Body weight 77.56 kg Zuleyma Praisler-Wood BUSINESS RULES ANALYST.EXECUTIVE ADVISOR Work Phone: [facility] 09-24-2023 12:07-0500 Diastolic blood pressure 72 mm[Hg] Zuleyma Praisler-Wood BUSINESS RULES ANALYST.EXECUTIVE ADVISOR Work Phone: [facility] 09-24-2023 12:07-0500 Heart rate 80 /min Zuleyma Praisler-Wood BUSINESS RULES ANALYST.EXECUTIVE ADVISOR Work Phone: [facility] 09-24-2023 12:07-0500 Respiratory rate 16 /min Zuleyma Praisler-Wood BUSINESS RULES ANALYST.EXECUTIVE ADVISOR Work Phone: [facility] 09-24-2023 12:07-0500 SaO2% (BldA) [Mass fraction] 98 % Zuleyma Praisler-Wood BUSINESS RULES ANALYST.EXECUTIVE ADVISOR Work Phone: [facility] 09-24-2023 12:07-0500 Systolic blood pressure 122 mm[Hg] Zuleyma Praisler-Wood BUSINESS RULES ANALYST.EXECUTIVE ADVISOR Work Phone: [facility] 09-03-2023 16:28-0500 Body weight 73.21 kg Shu Reeves BUSINESS RULES ANALYST.CNM Work Phone: [facility] 09-03-2023 16:28-0500 Diastolic blood pressure 64 mm[Hg] Shu Reeves BUSINESS RULES ANALYST.CNM Work Phone: [facility] 09-03-2023 16:28-0500 Systolic blood pressure 108 mm[Hg] Shu Reeves BUSINESS RULES ANALYST.CNM Work Phone: [facility] 08-04-2023 14:20-0400 Body weight 72.58 kg Abelino Kessler MD Work Phone: [facility] 08-04-2023 14:20-0400 Diastolic blood pressure 70 mm[Hg] Abelino Kessler MD Work Phone: [facility] 08-04-2023 14:20-0400 Systolic blood pressure 118 mm[Hg] Abelino Kessler MD Work Phone: [facility] 07-11-2023 13:12-0400 Body height 160 cm Shu Reeves BUSINESS RULES ANALYST.CNM Work Phone: [facility] 07-11-2023 13:12-0400 Body weight 69.4 kg Shu Reeves BUSINESS RULES ANALYST.CNM Work Phone: [facility] 07-11-2023 13:12-0400 Diastolic blood pressure 60 mm[Hg] Shu Reeves BUSINESS RULES ANALYST.CNM Work Phone: [facility] 07-11-2023 13:12-0400 Systolic blood pressure 112 mm[Hg] Shu Reeves BUSINESS RULES ANALYST.CNM Work Phone: [facility] 06-25-2023 09:49-0400 Body temperature 97.81 [degF] Stephanie Sidhu APRN.EXECUTIVE ADVISOR Work Phone: [facility] 06-25-2023 09:49-0400 Body weight 68.95 kg Stephanie Sidhu APRN.EXECUTIVE ADVISOR Work Phone: [facility] 06-25-2023 09:49-0400 Diastolic blood pressure 82 mm[Hg] Stephanie Sidhu APRN.EXECUTIVE ADVISOR Work Phone: [facility] 06-25-2023 09:49-0400 Heart rate 72 /min Stephanie Sidhu APRN.EXECUTIVE ADVISOR Work Phone: [facility] 06-25-2023 09:49-0400 Respiratory rate 18 /min Stephanie Sidhu APRN.EXECUTIVE ADVISOR Work Phone: [facility] 06-25-2023 09:49-0400 SaO2% (BldA) [Mass fraction] 99 % Stephanie Sidhu BUSINESS RULES ANALYST.EXECUTIVE ADVISOR Work Phone: [facility] 06-25-2023 09:49-0400 Systolic blood pressure 118 mm[Hg] Stephanie Sidhu BUSINESS RULES ANALYST.EXECUTIVE ADVISOR Work Phone: [facility] 06-06-2023 12:54-0400 Body temperature 99.19 [degF] Chandler Burton MD Work Phone: [facility] 06-06-2023 12:54-0400 Body weight 69.4 kg Chandler Burton MD Work Phone: [facility] 06-06-2023 12:54-0400 Diastolic blood pressure 80 mm[Hg] Chandler Burton MD Work Phone: [facility] 06-06-2023 12:54-0400 Heart rate 94 /min Chandler Burton MD Work Phone: [facility] 06-06-2023 12:54-0400 Respiratory rate 21 /min Chandler Burton MD Work Phone: [facility] 06-06-2023 12:54-0400 SaO2% (BldA) [Mass fraction] 99 % Chandler Burton MD Work Phone: [facility] 06-06-2023 12:54-0400 Systolic blood pressure 126 mm[Hg] Chandler Burton MD Work Phone: [facility] 05-28-2023 09:37-0400 Body temperature 98.49 [degF] Shu Hackett BUSINESS RULES ANALYST.EXECUTIVE ADVISOR Work Phone: [facility] 05-28-2023 09:37-0400 Body weight 68.58 kg Shu Hackett BUSINESS RULES ANALYST.EXECUTIVE ADVISOR Work Phone: [facility] 05-28-2023 09:37-0400 Diastolic blood pressure 84 mm[Hg] Shu Hackett BUSINESS RULES ANALYST.EXECUTIVE ADVISOR Work Phone: [facility] 05-28-2023 09:37-0400 Heart rate 70 /min Shu Hackett BUSINESS RULES ANALYST.EXECUTIVE ADVISOR Work Phone: [facility] 05-28-2023 09:37-0400 Respiratory rate 21 /min Shu Hackett BUSINESS RULES ANALYST.EXECUTIVE ADVISOR Work Phone: [facility] 05-28-2023 09:37-0400 SaO2% (BldA) [Mass fraction] 99 % Shu Hackett BUSINESS RULES ANALYST.EXECUTIVE ADVISOR Work Phone: [facility] 05-28-2023 09:37-0400 Systolic blood pressure 119 mm[Hg] Shu Hackett BUSINESS RULES ANALYST.EXECUTIVE ADVISOR Work Phone: [facility] 05-13-2023 15:35-0400 Body weight 68.95 kg Edwige Rupal BUSINESS RULES ANALYST.EXECUTIVE ADVISOR Work Phone: [facility] 05-13-2023 15:35-0400 Diastolic blood pressure 66 mm[Hg] Edwige Rupal BUSINESS RULES ANALYST.EXECUTIVE ADVISOR Work Phone: [facility] 05-13-2023 15:35-0400 Systolic blood pressure 102 mm[Hg] Edwige Rupal BUSINESS RULES ANALYST.EXECUTIVE ADVISOR Work Phone: [facility] 04-02-2023 15:22-0400 Body weight 70.17 kg Edwige Rupal BUSINESS RULES ANALYST.EXECUTIVE ADVISOR Work Phone: [facility] 04-02-2023 15:22-0400 Diastolic blood pressure 68 mm[Hg] Edwige Rupal BUSINESS RULES ANALYST.EXECUTIVE ADVISOR Work Phone: [facility] 04-02-2023 15:22-0400 Heart rate 81 /min Edwige Rupal BUSINESS RULES ANALYST.EXECUTIVE ADVISOR Work Phone: [facility] 04-02-2023 15:22-0400 SaO2% (BldA) [Mass fraction] 98 % Edwige Rupal BUSINESS RULES ANALYST.EXECUTIVE ADVISOR Work Phone: [facility] 04-02-2023 15:22-0400 Systolic blood pressure 98 mm[Hg] Edwige Rupal BUSINESS RULES ANALYST.EXECUTIVE ADVISOR Work Phone: [facility] 01-22-2023 19:00-0400 Body height 149.9 cm Kishor Rock MD Work Phone: [facility] 01-22-2023 19:00-0400 Body temperature 98.8 [degF] Kishor Rock MD Work Phone: [facility] 01-22-2023 19:00-0400 Body weight 70.31 kg Kishor Rock MD Work Phone: [facility] 01-22-2023 19:00-0400 Diastolic blood pressure 60 mm[Hg] Kishor Rock MD Work Phone: [facility] 01-22-2023 19:00-0400 Heart rate 81 /min Kishor Rock MD Work Phone: [facility] 01-22-2023 19:00-0400 Respiratory rate 12 /min Kishor Rock MD Work Phone: [facility] 01-22-2023 19:00-0400 SaO2% (BldA) [Mass fraction] 94 % Kishor Rock MD Work Phone: [facility] 01-22-2023 19:00-0400 Systolic blood pressure 120 mm[Hg] Kishor Rock MD Work Phone: [facility] 11-01-2022 12:26-0500 Body temperature 98.2 [degF] Anthony Pendlebury BUSINESS RULES ANALYST.EXECUTIVE ADVISOR Work Phone: [facility] 11-01-2022 12:26-0500 Body weight 72.03 kg Anthony Pendlebury BUSINESS RULES ANALYST.EXECUTIVE ADVISOR Work Phone: [facility] 11-01-2022 12:26-0500 Diastolic blood pressure 72 mm[Hg] Anthony Pendlebury BUSINESS RULES ANALYST.EXECUTIVE ADVISOR Work Phone: [facility] 11-01-2022 12:26-0500 Heart rate 88 /min Anthony Pendlebury BUSINESS RULES ANALYST.EXECUTIVE ADVISOR Work Phone: [facility] 11-01-2022 12:26-0500 Respiratory rate 16 /min Anthony Pendlebury BUSINESS RULES ANALYST.EXECUTIVE ADVISOR Work Phone: [facility] 11-01-2022 12:26-0500 SaO2% (BldA) [Mass fraction] 97 % Anthony Patterson BUSINESS RULES ANALYST.EXECUTIVE ADVISOR Work Phone: [facility] 11-01-2022 12:26-0500 Systolic blood pressure 126 mm[Hg] Anthony Patterson BUSINESS RULES ANALYST.EXECUTIVE ADVISOR Work Phone: [facility] 09-18-2022 17:36-0500 Body weight 70.76 kg Darya Older BUSINESS RULES ANALYST.EXECUTIVE ADVISOR Work Phone: [facility] 09-18-2022 17:36-0500 Diastolic blood pressure 66 mm[Hg] Darya Older BUSINESS RULES ANALYST.EXECUTIVE ADVISOR Work Phone: [facility] 09-18-2022 17:36-0500 Heart rate 72 /min Darya Older BUSINESS RULES ANALYST.EXECUTIVE ADVISOR Work Phone: [facility] 09-18-2022 17:36-0500 Respiratory rate 16 /min Darya Older BUSINESS RULES ANALYST.EXECUTIVE ADVISOR Work Phone: [facility] 09-18-2022 17:36-0500 Systolic blood pressure 118 mm[Hg] Darya Older BUSINESS RULES ANALYST.EXECUTIVE ADVISOR Work Phone: [facility] 09-09-2022 10:36-0500 Body temperature 99 [degF] Shaun Nikita BUSINESS RULES ANALYST.EXECUTIVE ADVISOR Work Phone: [facility] 09-09-2022 10:36-0500 Diastolic blood pressure 62 mm[Hg] Shaun Nikita BUSINESS RULES ANALYST.EXECUTIVE ADVISOR Work Phone: [facility] 09-09-2022 10:36-0500 Heart rate 76 /min Shaun Nikita BUSINESS RULES ANALYST.EXECUTIVE ADVISOR Work Phone: [facility] 09-09-2022 10:36-0500 Respiratory rate 16 /min Shaun Nikita BUSINESS RULES ANALYST.EXECUTIVE ADVISOR Work Phone: [facility] 09-09-2022 10:36-0500 SaO2% (BldA) [Mass fraction] 99 % Shaun Nikita BUSINESS RULES ANALYST.EXECUTIVE ADVISOR Work Phone: [facility] 09-09-2022 10:36-0500 Systolic blood pressure 120 mm[Hg] Shaun Nikita BUSINESS RULES ANALYST.EXECUTIVE ADVISOR Work Phone: [facility] 06-19-2022 17:13-0400 Body weight 66.68 kg Kishor Rock MD Work Phone: [facility] 06-19-2022 17:13-0400 Diastolic blood pressure 76 mm[Hg] Kishor Rock MD Work Phone: [facility] 06-19-2022 17:13-0400 Heart rate 67 /min Kishor Rock MD Work Phone: [facility] 06-19-2022 17:13-0400 Respiratory rate 16 /min Kishor Rock MD Work Phone: [facility] 06-19-2022 17:13-0400 SaO2% (BldA) [Mass fraction] 8 % Kishor Rock MD Work Phone: [facility] 06-19-2022 17:13-0400 Systolic blood pressure 118 mm[Hg] Kishor Rock MD Work Phone: [facility] 05-09-2022 17:24-0400 Diastolic blood pressure 78 mm[Hg] LEXY ZAMUDIO DO [facility] 05-09-2022 17:24-0400 Heart rate 74 /min LEXY ZAMUDIO DO [facility] 05-09-2022 17:24-0400 Reason For Taking VItal Signs LEXY ZAMUDIO DO [facility] 05-09-2022 17:24-0400 Respiratory rate 16 /min LEXY ZAMUDIO DO [facility] 05-09-2022 17:24-0400 Systolic blood pressure 111 mm[Hg] LEXY ESQUEDAKA DO [facility] 05-09-2022 16:01-0400 Diastolic blood pressure 74 mm[Hg] LEXY ESQUEDAKA DO [facility] 05-09-2022 16:01-0400 Heart rate 81 /min LEXY DURESKA DO [facility] 05-09-2022 16:01-0400 Respiratory rate 11 /min LEXY DURESKA DO [facility] 05-09-2022 16:01-0400 Systolic blood pressure 120 mm[Hg] LEXY DURESKA DO [facility] 05-09-2022 14:17-0400 Body temperature 99.86 [degF] LEXY DURESKA DO [facility] 05-09-2022 14:17-0400 Diastolic blood pressure 71 mm[Hg] LEXY DURESKA DO [facility] 05-09-2022 14:17-0400 Heart rate 86 /min LEXY DURESKA DO [facility] 05-09-2022 14:17-0400 Respiratory rate 16 /min LEXY DURESKA DO [facility] 05-09-2022 14:17-0400 Systolic blood pressure 117 mm[Hg] LEXY DURESKA DO [facility] 01-11-2022 09:27-0400 Body height 149.9 cm Patricia King MD Work Phone: [facility] 01-11-2022 09:27-0400 Body weight 62.55 kg Patricia King MD Work Phone: [facility] 01-11-2022 09:27-0400 Diastolic blood pressure 68 mm[Hg] Patricia King MD Work Phone: [facility] 01-11-2022 09:27-0400 Heart rate 78 /min Patricia King MD Work Phone: [facility] 01-11-2022 09:27-0400 Systolic blood pressure 110 mm[Hg] Patricia King MD Work Phone: [facility] Encounters Encounter Date Encounter Type Care Provider Facility Start: 12-11-2023 ambulatory Shu Reeves APRN.CNM Work Phone: OB/Gynecology Procedures Date Procedure Procedure Detail Performing Clinician Start: 12-10-2023 Us preg uterus after 1st trimest 1 gestation Shu Reeves APRN.CNM Work Phone: Start: 12-01-2023 URINE OB DIP B/O Jaclyn Reeves APRN.CNM Work Phone: Start: 11-17-2023 URINE OB DIP B/O Abelino florence MD Work Phone: Start: 09-03-2023 URINE OB DIP B/O Jaclyn Reeves APRN.CNM Work Phone: Start: 08-04-2023 URINE OB DIP B/O Abelino floernce MD Work Phone: Start: 07-14-2023 Antibody screen MANUELA WADDELL Plan of Treatment Date Care Activity Detail Author Start: 07-11-2028 HPV Testing HPV Testing [facility] Start: 07-11-2028 Pap Testing Pap Testing [facility] Start: 07-11-2028 Screening for malign ant neoplasm of cervix [facility] Start: 04-19-2026 Urine microalbumin profile [facility] Start: 10-24-2025 HPV TESTING HPV TESTING [facility] Start: 10-24-2025 PAP TESTING PAP TESTING [facility] Start: 05-13-2024 COVID-19 VACCINE (#1) COVID-19 VACCI NE (#1) [facility] Immunizations Immunization Date Immunization Notes Care Provider Eliceo andino 04-19-2016 tetanus toxoid, reduced diphtheria toxoid, and acellular pertussis vaccine, adsorbed Patricia Knig MD Work Phone: [facility] NEGATED: Highlighted row has not occurred!12-12-2021 COVID-19 vaccine, age 12+ yr (PFIZER-BIONTECH - LUCIO TOP) Patricia King MD Work Phone: [facility] Work Phone: Payers Date Payer Category Payer Medicaid [id number] 2021 Unknown [facility] [employer] COMP [id number] 2021-Present [phone] [place] [address] [facility] [id number] 2021 Unknown [facility] [id number] 2021-Present [phone] [place] [address] [facility] [place] [id number] 2014 Medicaid [employer] [employer] [place] [employer] MEDICAID [id number] 2014-Present [phone] [place] [id number] Medicaid [id number] 2014 Medicaid [id number] Social History Date Type Detail Facility Start: 08-08-2020 End: 03-18-2023 Tobacco smoking status NYIS Ex-smoker [facility] Work Phone: History of tobacco use Cigarette Smoker C [facility] Work Phone: Start: 08-08-2020 End: 03-18-2023 Cigarettes smoked current (pack per day) - Reported 0.5 [facility] Start: 08-08-2020 End: 03-18-2023 Tobacco use and exposure Smokeless tobacco non-user [facility] Work Phone: Start: 01-11-2022 End: 05-28-2023 Alcohol intake Current drinker of alcohol (finding) [facility] Start: 12-11-2021 End: 09-18-2022 History SDOH Alcohol Frequency 1 [facility] Start: 12-11-2021 End: 09-18-2022 History SDOH Alcohol Std Drinks 98 [facility] Start: 10-20-2014 History SDOH Alcohol Comment occasionally [facility] Start: 12-11-2021 End: 09-18-2022 History SDOH Social Connections Phone 2 [facility] Start: 12-11-2021 End: 09-18-2022 History SDOH Social Connections Get Together 3 [facility] Start: 12-11-2021 End: 09-18-2022 History SDOH Social Connections Living 6 [facility] Start: 12-11-2021 End: 09-18-2022 History SDOH Physical Activity DPW 5 [facility] Start: 1990 Sex Assigned At Not on file [facility] Start: 11-12-2021 End: 09-09-2022 Exposure to SARS-CoV-2 (event) Not sure [facility] Sex Assigned At Female [facility] History of tobacco use Current smoker [facility] Work Phone: Start: 09-18-2022 History SDOH Alcohol Std Drinks 0 [facility] Start: 09-18-2022 History SDOH Financial 4 [facility] Start: 11-01-2022 Tobacco use and exposure User of smokeless tobacco [facility] Start: 11-01-2022 Tobacco Comment vape [facility] Start: 09-17-2022 End: 03-18-2023 Social connection and isolation panel [facility] In a typical week, h ow many times do you talk on the telephone with family, friends, or neighbors? Patient refused [facility] Do you belong to any clubs or organizations such as methodist groups, unions, fraternal or athletic groups, or school groups? No [facility] Are you now , , , , never or living with a partner? [facility] How often to you hav e a drink containing alcohol? Never [facility] How hard is it for y ou to pay for the very basics like food, housing, medical care, and heating Not very hard [facility] Do you feel stress - tense, restless, nervous, or anxious, or unable to sleep at night because your mind is troubled all the time - these days [OSQ] Only a little [facility] (I/We) worried wheth er (my/our) food would run out before (I/we) got money to buy more. Never true [facility] Start: 07-11-2023 End: 11-17-2023 Alcohol intake Ex-drinker (finding) [facility] Start: 05-21-2023 [facility] Medical Equipment Procedure Code Equipment Code Equipment Origin al Text Equipment Identifier Dates Start: 11-19-2023 Goals Date Patient Goal Desired Activity /State Personal health goal Functional Status Date Assessment Result Facility 05-09-2022 Functional Status Standard Safet y ID band on, Call device within reach, Bed in low position, Wheels locked, Upper/Half-Length side-rails up, Bedside Cart Locked, Safety level maintained [facility] 05-09-2022 Functional Status [facility] Mental Status Date Assessment Result Facility 05-09-2022 Mental Status Orientation Oriented x 4 [facility] 05-09-2022 [facility] Status [facility] Clinical Notes 11-22-2014 to 12-12-2023 Telephone Encounter - Dakota Sidhu MD - 12/12/2023 8:49 AM ESTTelephone Encounter - Lin Ramirez LPN - 12/04/2023 11:54 AM ESTPrenatal Quick Notes - Cristin Prabhakar - 12/01/2023 5:22 PM EST Note Date & Type Note Facility 12-12-2023 Miscellaneous Notes Overall normal. Have her bring to visit Friday. Dakota Sidhu MD documented in this encounter [facility] 12-04-2023 Miscellaneous Notes [facility] paperwork completed, faxed to employer, scanned into EMR and filed in nurses station. Lin Ramirez LPN Received FMLA forms for pt. Mobule message sent to pt for clarification on her leave dates and if this is for her place of employment. Will await further response from pt. Lin Ramirez LPN documented in this encounter [facility] 12-02-2023 Miscellaneous Notes 3rd risk assessment form submitted 12/02/2023. Odalis Morales RN documented in this encounter [facility] 12-01-2023 Miscellaneous Notes S: Jyoti Aranda is a 33 year old female who presents at 02/11/2024, by Last Menstrual Period for a routine visit. Denies headache, visual changes, chest pain, shortness of breath, vaginal bleeding, leakage of fluid, or dysuria. Having some shooting pains vaginally and bilateral groin cramping. Sometimes lightheaded with position changes. Pt works in [employer] and she lifts >50lb on a daily basis. 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 O: See flow sheet Gen: No apparent distress Abd: Gravid, nontender TWG 19 lb S=D BS Log: Fastin-102. (One abnl) 1 hr after breakfast: 122-175. (Three abnl) 1 hr after dinner: 75-115 ( all wnl ASSESSMENT/PLAN: 1. 29 weeks gestation of - URINE OB DIP B/O - OBSTETRIC ULTRASOUND WHI 2. Abnormal glucose in , antepartum Risks of Oligo, LGA, SGA, stillbirth and abnl BS in reviewed with pt. Given written log sheet, instructed pt how to use, and sent photo to [email or web address] or hand -type BS results next week to provider. Pt agreeable. Encouraged increase oral fluids and small frequent meals every 3 hr with protein in each meal. 3. Situational depression - Pt plans to begin FMLA at 37 weeks. Discussed with pt need for safety, proper body mechanics for her safety. 4. Supervision of other high risk pregnancies, first trimester 5. Growth US as soon as can be scheduled. 6. Return to office 2 weeks Medical Decision Making: Problems: Low: Stable chronic illness Data: Unique test(s) ordered: 3+ Risk: Moderate: Drug management Medical Decision Making Level: 4 - Moderate SHILPI Ruiz TEACHING REPAIRER KILN CAR NOTE OF PERSONAL INVOLVEMENT IN CARE: I have interviewed the patient and updated the midwifery student's PFS history, and ROS as necessary. I have re-performed the HPI, Physical Examination, Assessment and Plan. Shu Reeves APRN.CNM documented in this encounter [facility] 12-01-2023 Eugenie Ortiz LPN - 12/01/2023 4:16 PM EST SEQUENTIAL SCREENINGS The [facility] offers sequential screenings for women who are interested in screenings for chromosomal abnormalities and certain defects during a . The sequential screen combines ultrasound and blood tests to determine the risk of chromosomal abnormalities, including Down's Syndrome (Trisomy 21) and Trisomy 18, as well as open neural tube defects including spina bifida. Ultrasound examination is performed between 11 weeks and 13 weeks gestational age. Blood tests are drawn after the ultrasound and again later in the between 15 and 21 weeks gestational age. Please let your physician know if you are interested in this testing. It will require an appointment with our speech therapist technician. This is not an ultrasound performed by a physician in our office during a routine visit. SIGNS AND SYMPTOMS OF LABOR 1. Contractions every 10 minutes or more often 2. Clear, pink, or brownish fluid (water) leaking from vagina 3. Feeling that baby is pushing down, pressure 4. Low, dull backache 5. Cramps that feel like a period 6. Cramps with or without diarrhea If you notice any of the above symptoms, contact our office at [phone] and ask to speak with a nurse. After hours, you can call [employer] registry at [phone] OR call [facility] at [phone] and ask to have the doctor emulsion operator paged. If you consider this an emergency, dial 9-1-1 or go to your nearest emergency department. NEED HELP? Are you dealing with a violent or abusive relationship? Are you a victim of rape or sexual assult? Call [facility] ([place]) 24 hour Crisis Hotline: 587.823.9262 or 418-560-3704. MANUAL Your Guide to a Healthy manual is now on-line. Visit [email or web address] ncyGuide to download your free copy documented in this encounter [facility] 11-25-[address] - 11/25/2023 2:32 PM EST Goals: Fasting glucose <95 mg/dL; 1 hr glucose ,140 mg/dL, 2 hr glucose ,120 mg/dL; mean glucose of 86 mg/dL. 1. Distribute carbohydrate evening throught out the day, Choose whole grain starches and grains, avoid white and refined grains and sources of concentration sugars . Carbohydrates are the starches, fruits and milk group and is defined as 15 grams per serving/choice. 2. Keep breakfast at 15-30 grams carbohydrate; lunch of 45 grams; dinner 30-45 grams or 2-3 carb choices; include an evening with some carb and protein, try a sugar free pudding. Add protein at breakfast, try a protein drink, pea nuts, 3. Ensure carbs and starches are whole grain and high fiber 4. Aim for 28 grams of fiber. 5. Limit saturated fat, choose lean proteins, healthy fast such as olive oil, canola oil, avocados, nuts/seeds, etc. 6. . If not busy all day, include 30 min exercise; can also add a short walk after meals as needed to help keep post meal blood sugars controlled. documented in this encounter [facility] 11-24-2023 Note HNO ID: [id number] Author: HAYLEY PARR RD Service: ? Author Type: Registered Dietitian Type: Progress Notes Filed: 11/25/2023 14:32 Note Text: [facility] Nutrition Therapy: Virtual Consult - Initial Assessment I have communicated my name and active licensure. The patient?s identity and physical location were verified at the time of this visit. Either the patient or their legal sales representatives has been informed of the risks and benefits of -- and alternatives to -- treatment through a remote evaluation and consents to proceed with the evaluation remotely. Nutrition Diagnosis: Altered nutrition-related lab values, related to, and endocrine dysfunction, as evidenced by elevated glucose tolerance tests . RECOMMENDED MALNUTRITION DIAGNOSIS: NO MALNUTRITION IDENTIFIED NUTRITION CARE PLAN Nutrition Intervention 11/24/2023: modify type and amount of food or beverage Goals: Fasting glucose <95 mg/dL; 1 hr glucose ,140 mg/dL, 2 hr glucose ,120 mg/dL; mean glucose of 86 mg/dL. 1. Distribute carbohydrate evening throught out the day, Choose whole grain starches and grains, avoid white and refined grains and sources of concentration sugars . Carbohydrates are the starches, fruits and milk group and is defined as 15 grams per serving/choice. 2. Keep breakfast at 15-30 grams carbohydrate; lunch of 45 grams; dinner 30-45 grams or 2-3 carb choices; include an evening with some carb and protein, try a sugar free pudding. Add protein at breakfast, try a protein drink, pea nuts, 3. Ensure carbs and starches are whole grain and high fiber 4. Aim for 28 grams of fiber. 5. Limit saturated fat, choose lean proteins, healthy fast such as olive oil, canola oil, avocados, nuts/seeds, etc. 6. . If not busy all day, include 30 min exercise; can also add a short walk after meals as needed to help keep post meal blood sugars controlled. Nutrition Monitoring AND Evaluation: blood sugars in normal range Need for Follow up: 3 weeks Patient presents for initial MNT as relates to gestational diabetes now at 29 weeks. Prepregnancy weight 155 lbs. Had GDM in previous so has some knowledge of carbs. Is monitoring blood sugars, most in target range. Typically eats three meals and no snacks. Is very active at work, no time for snacks. Choosing low carb foods, keto foods and lite options. Carb intake during the day less than recommended, appear to be consumer just protein and vegetables at meals or small amount of starch foods. Has a long period between dinner and breakfast - about 12 hours, recommended an evening snack, patient concerned with having food too close to bed time with severe GERD. No regular exercise but very active at work and busy with kids when home. Patient's symptoms are: elevated blood sugars Diet History: //95/93/101/106 Breakfast - 6 a.m. usually cereal (honey bunches of oats) whole milk One post 115/113/129 (cheese bagel and hashbrowns) Snack - no Lunch - left over, usually high protein, some carbs, today: pork with red skin potatoes and diet juice (11 g cho) Snack - no Dinner - before 6 -tonight pork with broccoli Snack - no Beverages - water, tea Alcohol- no Vitamins/Supplements - , Bed: 10 Activity: Activities of Daily Living: Active 75% of the day. 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 Resting Metabolic Rate: 1474 Malnutrition Screening Significant unintentional weight loss? No Eating less than 75% of usual intake for more than 2 weeks? No Potential Signs of Inflammation: no identifiable sources Education Materials Provided: Gestational Diabetes Booklet and Healthy You - Planning Healthy Meals READINESS TO LEARN Cognitive ability: Alert and oriented Motivation to learn: Interested Family support: Unable to assess - Family not present Instruction provided to: Patient Patient learns best by: Individual Instruction Factors affecting learning: None Physical limitations affecting learning: None Referred by: Donita RAMOS Billing Type: Initial Assess/15 min 2 units SIGNATURE: Hayley Parr RD PATIENT NAME: Jyoti Aranda DATE: 11/24/2023 TIME: 3:22 PM [facility] 11-24-2023 History of Present illness Narrative [facility] Nutrition Therapy: Virtual Consult - Initial Assessment I have communicated my name and active licensure. The patient s identity and physical location were verified at the time of this visit. Either the patient or their legal sales representatives has been informed of the risks and benefits of -- and alternatives to -- treatment through a remote evaluation and consents to proceed with the evaluation remotely. Nutrition Diagnosis: Altered nutrition-related lab values, related to, and endocrine dysfunction, as evidenced by elevated glucose tolerance tests . RECOMMENDED MALNUTRITION DIAGNOSIS: NO MALNUTRITION IDENTIFIED NUTRITION CARE PLAN Nutrition Intervention 11/24/2023: modify type and amount of food or beverage Goals: Fasting glucose <95 mg/dL; 1 hr glucose ,140 mg/dL, 2 hr glucose ,120 mg/dL; mean glucose of 86 mg/dL. 1. Distribute carbohydrate evening throught out the day, Choose whole grain starches and grains, avoid white and refined grains and sources of concentration sugars . Carbohydrates are the starches, fruits and milk group and is defined as 15 grams per serving/choice. 2. Keep breakfast at 15-30 grams carbohydrate; lunch of 45 grams; dinner 30-45 grams or 2-3 carb choices; include an evening with some carb and protein, try a sugar free pudding. Add protein at breakfast, try a protein drink, pea nuts, 3. Ensure carbs and starches are whole grain and high fiber 4. Aim for 28 grams of fiber. 5. Limit saturated fat, choose lean proteins, healthy fast such as olive oil, canola oil, avocados, nuts/seeds, etc. 6. . If not busy all day, include 30 min exercise; can also add a short walk after meals as needed to help keep post meal blood sugars controlled. Nutrition Monitoring & Evaluation: blood sugars in normal range Need for Follow up: 3 weeks Patient presents for initial MNT as relates to gestational diabetes now at 29 weeks. Prepregnancy weight 155 lbs. Had GDM in previous so has some knowledge of carbs. Is monitoring blood sugars, most in target range. Typically eats three meals and no snacks. Is very active at work, no time for snacks. Choosing low carb foods, keto foods and lite options. Carb intake during the day less than recommended, appear to be consumer just protein and vegetables at meals or small amount of starch foods. Has a long period between dinner and breakfast - about 12 hours, recommended an evening snack, patient concerned with having food too close to bed time with severe GERD. No regular exercise but very active at work and busy with kids when home. Patient's symptoms are: elevated blood sugars Diet History: 94/90/95/93/101/106 Breakfast - 6 a.m. usually cereal (honey bunches of oats) whole milk One post 115/113/129 (cheese bagel and hashbrowns) Snack - no Lunch - left over, usually high protein, some carbs, today: pork with red skin potatoes and diet juice (11 g cho) Snack - no Dinner - before 6 -tonight pork with broccoli Snack - no Beverages - water, tea Alcohol- no Vitamins/Supplements - , Bed: 10 Activity: Activities of Daily Living: Active 75% of the day. 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 Resting Metabolic Rate: 1474 Malnutrition Screening Significant unintentional weight loss? No Eating less than 75% of usual intake for more than 2 weeks? No Potential Signs of Inflammation: no identifiable sources Education Materials Provided: Gestational Diabetes Booklet and Healthy You - Planning Healthy Meals READINESS TO LEARN Cognitive ability: Alert and oriented Motivation to learn: Interested Family support: Unable to assess - Family not present Instruction provided to: Patient Patient learns best by: Individual Instruction Factors affecting learning: None Physical limitations affecting learning: None Referred by: Donita RAMOS Billing Type: Initial Assess/15 min 2 units SIGNATURE: Hayley Parr RD PATIENT NAME: Jyoti Aranda DATE: 11/24/2023 TIME: 3:22 PM documented in this encounter [facility] 11-19-2023 Note HNO ID: [id number] Author: ZENAIDA LINDO RN Service: ? Author Type: Registered Nurse Type: Progress Notes Filed: 11/19/2023 14:18 Note Text: DIABETES CARE AND EDUCATION VISIT Location: [place] Type of visit: In person individual PATIENT'S MAIN CONCERN TODAY: GDM diagnosis today Support person present for education today: none Cognitive ability: Alert and oriented Motivation to learn: Interested Learning barriers identified by educator: none Method of instruction: written, verbal, and demonstration DIABETES FINDINGS: Monitoring: Patient's mother is insulin dependent Type 2, very familiar with testing sugars Meal Planning: Reviewed 175 g per day carb diet as recommended by ACOG and ADA Medications: discussed insulin as most commonly used in , her mother uses insulin pens so she is familiar with their operation 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 DIABETES CARE AND EDUCATION PLAN: Education completed and annual diabetes education follow-up visit recommended Time Spent (Minutes): 30 This visit note will be communicated to the healthcare provider via access to shared medical record. SIGNATURE: Zenaida Lindo RN PATIENT NAME: Jyoti Aranda DATE: November 19, 2023 TIME: 1:54 PM [facility] 11-19-2023 History of Present illness Narrative DIABETES CARE AND EDUCATION VISIT Location: [place] Type of visit: In person individual PATIENT'S MAIN CONCERN TODAY: GDM diagnosis today Support person present for education today: none Cognitive ability: Alert and oriented Motivation to learn: Interested Learning barriers identified by educator: none Method of instruction: written, verbal, and demonstration DIABETES FINDINGS: Monitoring: Patient's mother is insulin dependent Type 2, very familiar with testing sugars Meal Planning: Reviewed 175 g per day carb diet as recommended by ACOG and ADA Medications: discussed insulin as most commonly used in , her mother uses insulin pens so she is familiar with their operation 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 DIABETES CARE AND EDUCATION PLAN: Education completed and annual diabetes education follow-up visit recommended Time Spent (Minutes): 30 This visit note will be communicated to the healthcare provider via access to shared medical record. SIGNATURE: Zenaida Lindo RN PATIENT NAME: Jyoti Aranda DATE: November 19, 2023 TIME: 1:54 PM documented in this encounter [facility] 11-19-2023 Miscellaneous Notes Patient called and appointments scheduled. Desire Aranda RN ordered ----- Message from Manuela Waddell MD sent at 11/19/2023 9:06 AM EST ----- Pt can stop with the three hour test as she failed it already. Please pend supplies and arrange for diabetic teaching/nutrition. documented in this encounter [facility] 11-18-2023 Miscellaneous Notes ----- Message from Manuela Waddell MD sent at 11/18/2023 7:58 AM EST ----- Notify patient she failed her GCT, needs 3hr. documented in this encounter [facility] 11-17-2023 Miscellaneous Notes SW- Pt doing well. Some acid reflux. No pain, vb, lof. Good FM PE: Gen- NAD, well appearing Abd- Soft, gravid, NT Ext- No edema See flowsheet A/p 27 wk gestation - Pepcid sent and discussed dietary changes - 28 wk labs today - LARC signed - Depression screen completed today - Mood stable on Zoloft - Title 19 signed. Desires sterilization - Declines Tdap - RTO 2 wk Abelino Kessler DO documented in this encounter [facility] 11-17-2023 Instructions Patti Sánchez MA - 11/17/2023 3:30 PM EST SEQUENTIAL SCREENINGS The [facility] offers sequential screenings for women who are interested in screenings for chromosomal abnormalities and certain defects during a . The sequential screen combines ultrasound and blood tests to determine the risk of chromosomal abnormalities, including Down's Syndrome (Trisomy 21) and Trisomy 18, as well as open neural tube defects including spina bifida. Ultrasound examination is performed between 11 weeks and 13 weeks gestational age. Blood tests are drawn after the ultrasound and again later in the between 15 and 21 weeks gestational age. Please let your physician know if you are interested in this testing. It will require an appointment with our speech therapist technician. This is not an ultrasound performed by a physician in our office during a routine visit. SIGNS AND SYMPTOMS OF LABOR 1. Contractions every 10 minutes or more often 2. Clear, pink, or brownish fluid (water) leaking from vagina 3. Feeling that baby is pushing down, pressure 4. Low, dull backache 5. Cramps that feel like a period 6. Cramps with or without diarrhea If you notice any of the above symptoms, contact our office at [phone] and ask to speak with a nurse. After hours, you can call doctors registry at [phone] OR call [facility] at [phone] and ask to have the doctor emulsion operator paged. If you consider this an emergency, dial [phone] or go to your nearest emergency department. NEED HELP? Are you dealing with a violent or abusive relationship? Are you a victim of rape or sexual assult? Call [facility] ([facility] 24 hour Crisis Hotline: 692.203.1920 or 667-402-3284. MANUAL Your Guide to a Healthy manual is now on-line. Visit [email or web address] ncyGuide to download your free copy documented in this encounter [facility] 11-11-2023 Note HNO ID: [id number] Author: ZULEYMA CASTRO APRN.EXECUTIVE ADVISOR Service: ? Author Type: Nurse Practitioner Type: Progress Notes Filed: 11/11/2023 09:50 Note Text: Subjective Headache Associated symptoms include malaise/fatigue and nausea. Pertinent negatives include no fever. Jyoti Aranda is a 33 year old female who presents with headache, fatigue, nausea for the past 3 hours. States she left work this morning due to symptoms. She is 27 weeks . States I think I'm just exhausted . Denies flu like symptoms. No vaginal spotting or bleeding. Has been feeling normal amount of movement. Review of Systems Constitutional: Positive for malaise/fatigue. Negative for chills and fever. HENT: Negative for congestion and sore throat. Respiratory: Positive for cough. Cardiovascular: Negative. Gastrointestinal: Positive for nausea. Genitourinary: Negative. Musculoskeletal: Negative for myalgias. Neurological: Positive for headaches. BP 110/62 Pulse 82 Temp 36.6 ?C (97.9 ?F) Resp 16 Wt 78.9 kg (174 lb) LMP 05/07/2023 (Exact Date) SpO2 98% BMI 30.82 kg/m? PAST MEDICAL HISTORY Diagnosis Date Back pain Overweight (BMI 25.0-29.9) 11/22/2014 No past surgical history on file. ALLERGIES Patient has no known allergies. MEDICATIONS hydrOXYzine pamoate (VISTARIL) 25 mg capsule Take 1 capsule by mouth daily at bedtime. sertraline (ZOLOFT) 25 mg tablet Take 1 tablet by mouth once daily. Okay to start with a half a pill daily for the first week then increase to 1 full tab daily docusate sodium (COLACE) 100 mg capsule Take 1 capsule by mouth two times a day. ondansetron (ZOFRAN) 4 mg tablet Take 1 tablet by mouth every 8 hours as needed for nausea/vomiting. no.167-folic acid-dha 400 mcg- 25 mg chew Take 1 tablet by mouth once daily. multivit,calc,mins/iron/folic (ONE-A-DAY WOMENS FORMULA ORAL) Take by mouth. FAMILY HISTORY Problem Relation Age of Onset Asthma Mother Cataract Mother Cataract Maternal Grandmother Cataract Maternal Grandfather other (Heart, brain mass) Maternal Grandfather Breast Cancer Other great grandmother-p Cataract Paternal Grandmother Cataract Paternal Grandfather Social History Tobacco Use Smoking status: Former Packs/day: 0.50 Years: 5.00 Additional pack years: 0.00 Total pack years: 2.50 Types: Cigarettes Smokeless tobacco: Never Tobacco comments: vape Vaping Use Vaping Use: Former Substance Use Topics Alcohol use: Not Currently Comment: occasionally Drug use: No Objective Physical Exam Vitals and nursing note reviewed. Constitutional: Appearance: Normal appearance. HENT: Right Ear: Tympanic membrane, ear canal and external ear normal. Left Ear: Tympanic membrane, ear canal and external ear normal. Mouth/Throat: Mouth: Mucous membranes are moist. Pharynx: Oropharynx is clear. No oropharyngeal exudate or posterior oropharyngeal erythema. Cardiovascular: Rate and Rhythm: Normal rate and regular rhythm. Heart sounds: Normal heart sounds. Pulmonary: Effort: Pulmonary effort is normal. No respiratory distress. Breath sounds: Normal breath sounds. No wheezing or rales. Skin: General: Skin is warm and dry. Findings: No erythema or rash. Neurological: Mental Status: She is alert. ASSESSMENT/PLAN: 1. Fatigue, unspecified type - ICD9: 780.79, ICD10: R53.83 (primary diagnosis) - rest, fluids, follow up with OB if symptoms persist 2. Headache, unspecified headache type - ICD9: 784.0, ICD10: R51.9 - may take tylenol PRN. - Work note provided for today's visit. - Follow-up with your PCP in 3-5 days if symptoms have not improved or sooner if symptoms worsen - Discussed red flags and need for immediate medical evaluation if any occur. - Discussed supportive care treatment with fluids, rest and analgesia. - Discussed expected course of illness Zuleyma Castro APRN.CNP [facility] 11-11-2023 Instructions Zuleyma Castro APRN.CNP - 11/11/2023 9:47 AM EST ASSESSMENT/PLAN: 1. Fatigue, unspecified type - ICD9: 780.79, ICD10: R53.83 (primary diagnosis) - rest, fluids, follow up with OB if symptoms persist 2. Headache, unspecified headache type - ICD9: 784.0, ICD10: R51.9 - may take tylenol PRN. - Work note provided for today's visit. - Follow-up with your PCP in 3-5 days if symptoms have not improved or sooner if symptoms worsen - Discussed red flags and need for immediate medical evaluation if any occur. - Discussed supportive care treatment with fluids, rest and analgesia. - Discussed expected course of illness Zuleyma Castro APRN.EXECUTIVE ADVISOR documented in this encounter [facility] 11-11-2023 History of Present illness Narrative Subjective Headache Associated symptoms include malaise/fatigue and nausea. Pertinent negatives include no fever. Jyoti Aranda is a 33 year old female who presents with headache, fatigue, nausea for the past 3 hours. States she left work this morning due to symptoms. She is 27 weeks . States I think I'm just exhausted . Denies flu like symptoms. No vaginal spotting or bleeding. Has been feeling normal amount of movement. Review of Systems Constitutional: Positive for malaise/fatigue. Negative for chills and fever. HENT: Negative for congestion and sore throat. Respiratory: Positive for cough. Cardiovascular: Negative. Gastrointestinal: Positive for nausea. Genitourinary: Negative. Musculoskeletal: Negative for myalgias. Neurological: Positive for headaches. BP 110/62 Pulse 82 Temp 36.6 C (97.9 F) Resp 16 Wt 78.9 kg (174 lb) LMP 05/07/2023 (Exact Date) SpO2 98% BMI 30.82 kg/m PAST MEDICAL HISTORY Diagnosis Date Back pain Overweight (BMI 25.0-29.9) 11/22/2014 No past surgical history on file. ALLERGIES Patient has no known allergies. MEDICATIONS hydrOXYzine pamoate (VISTARIL) 25 mg capsule Take 1 capsule by mouth daily at bedtime. sertraline (ZOLOFT) 25 mg tablet Take 1 tablet by mouth once daily. Okay to start with a half a pill daily for the first week then increase to 1 full tab daily docusate sodium (COLACE) 100 mg capsule Take 1 capsule by mouth two times a day. ondansetron (ZOFRAN) 4 mg tablet Take 1 tablet by mouth every 8 hours as needed for nausea/vomiting. no.167-folic acid-dha 400 mcg- 25 mg chew Take 1 tablet by mouth once daily. multivit,calc,mins/iron/folic (ONE-A-DAY WOMENS FORMULA ORAL) Take by mouth. FAMILY HISTORY Problem Relation Age of Onset Asthma Mother Cataract Mother Cataract Maternal Grandmother Cataract Maternal Grandfather other (Heart, brain mass) Maternal Grandfather Breast Cancer Other great grandmother-p Cataract Paternal Grandmother Cataract Paternal Grandfather Social History Tobacco Use Smoking status: Former Packs/day: 0.50 Years: 5.00 Additional pack years: 0.00 Total pack years: 2.50 Types: Cigarettes Smokeless tobacco: Never Tobacco comments: vape Vaping Use Vaping Use: Former Substance Use Topics Alcohol use: Not Currently Comment: occasionally Drug use: No Objective Physical Exam Vitals and nursing note reviewed. Constitutional: Appearance: Normal appearance. HENT: Right Ear: Tympanic membrane, ear canal and external ear normal. Left Ear: Tympanic membrane, ear canal and external ear normal. Mouth/Throat: Mouth: Mucous membranes are moist. Pharynx: Oropharynx is clear. No oropharyngeal exudate or posterior oropharyngeal erythema. Cardiovascular: Rate and Rhythm: Normal rate and regular rhythm. Heart sounds: Normal heart sounds. Pulmonary: Effort: Pulmonary effort is normal. No respiratory distress. Breath sounds: Normal breath sounds. No wheezing or rales. Skin: General: Skin is warm and dry. Findings: No erythema or rash. Neurological: Mental Status: She is alert. ASSESSMENT/PLAN: 1. Fatigue, unspecified type - ICD9: 780.79, ICD10: R53.83 (primary diagnosis) - rest, fluids, follow up with OB if symptoms persist 2. Headache, unspecified headache type - ICD9: 784.0, ICD10: R51.9 - may take tylenol PRN. - Work note provided for today's visit. - Follow-up with your PCP in 3-5 days if symptoms have not improved or sooner if symptoms worsen - Discussed red flags and need for immediate medical evaluation if any occur. - Discussed supportive care treatment with fluids, rest and analgesia. - Discussed expected course of illness Zuleyma Castro APRN.EXECUTIVE ADVISOR documented in this encounter [facility] 10-15-2023 Note HNO ID: [id number] Author: VIVIAN GATES MD Service: ? Author Type: Physician Type: Progress Notes Filed: 10/15/2023 16:02 Note Text: Jyoti is a 33 year old who presents today for a colposcopy. The patient's last pap smear was ASC-H neg HRHVP from July 2023. Patient has a history of abnormal pap: Yes. The patient has had prior treatment: none. test: n/a 23 weeks UNIVERSAL PROTOCOL / SAFETY CHECKLIST Procedure to be Performed: colposcopy with possible biopsy Sign In: A Moment of CARE was completed. Personnel directly involved with the procedure wore the appropriate PPE (Personal Protective Equipment). Patient/Surrogate Stated/Verified: PATIENT VERIFIED(optional for EMERGENT procedures): Patient name, Date of , Relevant allergies, and The intended procedure Time Out Communication: Intended patient and procedure match the source documents. Consent documented and matches the intended procedure. Relevant labs, photos, and/or imaging studies have been reviewed. No implant(s) inserted. Sign Out: SIGN OUT (optional for EMERGENT procedures): No specimen collected. All instruments, equipment, possible retained foreign bodies accounted for. Post-procedure follow-up management communicated and Plan of Care Visit completed when applicable. Vivian Gates M.D. PROCEDURE: EXTERNAL GENITALIA: Normal in appearance without lesions VAGINA: Normal in appearance without lesions CERVIX: Speculum placed in vagina and excellent visualization of cervix achieved. Cervix swabbed x 3 with 3% acetic acid solution. Cervix grossly normal. Squamocolumnar junction visualized. acetowhite changes noted atnerior lip and small lesions posterior lip, punctations noted -none, mosaicism noted 7 and 12 oclocl, and atypical vasculature noted -none. BIOPSY: Not done. due to 23 weeks gestation ECC: not done Procedure Summary: Patient tolerated procedure fair and colposcopy was adequate. FHTs 130 bpm ASSESSMENT: ASC-H pap PLAN: reviewed postprocedure instructions. Patient understands importance of follow up and risk of progression of disease if not followed and treated when indicated Vivian Gates MD [facility] 09-24-2023 Note HNO ID: [id number] Author: Zuleyma Castro APRN.EXECUTIVE ADVISOR Service: ? Author Type: Nurse Practitioner Type: Progress Notes Filed: 09/24/2023 12:34 PM Note Text: Subjective HPI Jyoti Aranda is a 33 year old female who presents with lower back pain that radiates to right hip and front of right leg to knee. She has had this for the past 1.5 hours because Tylenol does nothing . She denies any injury. States some of the back pain radiates to her abdomen. She is 20 weeks . She denies any bleeding or spotting. States the pain is constant and rates pain 5/10 but worse with walking. Review of Systems Constitutional: Negative for chills and fever. Respiratory: Negative. Cardiovascular: Negative. Gastrointestinal: Positive for abdominal pain. Musculoskeletal: Positive for back pain and joint pain (SI joint pain). Negative for falls. BP 122/72 Pulse 80 Temp 36.6 ?C (97.9 ?F) Resp 16 Wt 77.6 kg (171 lb) LMP 05/07/2023 (Exact Date) SpO2 98% BMI 30.29 kg/m? PAST MEDICAL HISTORY Diagnosis Date Back pain Overweight (BMI 25.0-29.9) 11/22/2014 No past surgical history on file. ALLERGIES Patient has no known allergies. MEDICATIONS hydrOXYzine pamoate (VISTARIL) 25 mg capsule Take 1 capsule by mouth daily at bedtime. sertraline (ZOLOFT) 25 mg tablet Take 1 tablet by mouth once daily. Okay to start with a half a pill daily for the first week then increase to 1 full tab daily docusate sodium (COLACE) 100 mg capsule Take 1 capsule by mouth two times a day. ondansetron (ZOFRAN) 4 mg tablet Take 1 tablet by mouth every 8 hours as needed for nausea/vomiting. no.167-folic acid-dha 400 mcg- 25 mg chew Take 1 tablet by mouth once daily. multivit,calc,mins/iron/folic (ONE-A-DAY WOMENS FORMULA ORAL) Take by mouth. (Patient not taking: Reported on 06/25/2023) FAMILY HISTORY Problem Relation Age of Onset Asthma Mother Cataract Mother Cataract Maternal Grandmother Cataract Maternal Grandfather other (Heart, brain mass) Maternal Grandfather Breast Cancer Other great grandmother-p Cataract Paternal Grandmother Cataract Paternal Grandfather Social History Tobacco Use Smoking status: Former Packs/day: 0.50 Years: 5.00 Additional pack years: 0.00 Total pack years: 2.50 Types: Cigarettes Smokeless tobacco: Never Tobacco comments: vape Vaping Use Vaping Use: Former Substance Use Topics Alcohol use: Not Currently Comment: occasionally Drug use: No Objective Physical Exam Vitals and nursing note reviewed. Constitutional: General: She is not in acute distress. Appearance: Normal appearance. Cardiovascular: Rate and Rhythm: Normal rate and regular rhythm. Heart sounds: Normal heart sounds. Pulmonary: Effort: Pulmonary effort is normal. No respiratory distress. Breath sounds: Normal breath sounds. No wheezing or rales. Musculoskeletal: Lumbar back: Tenderness present. Normal range of motion. Positive right straight leg raise test and positive left straight leg raise test. Back: Neurological: Mental Status: She is alert. ASSESSMENT/PLAN: 1. Sciatica, right side - ICD9: 724.3, ICD10: M54.31 - I feel patients symptoms are consistent with sciatica; she states she has had sciatica before and this seems different. She is referred to ER for further evaluation and treatment due to . Zuleyma Castro APRN.[facility] 09-24-2023 History of Present illness Narrative Images from the original note were not included. Subjective HPI Jyoti Aranda is a 33 year old female who presents with lower back pain that radiates to right hip and front of right leg to knee. She has had this for the past 1.5 hours because Tylenol does nothing . She denies any injury. States some of the back pain radiates to her abdomen. She is 20 weeks . She denies any bleeding or spotting. States the pain is constant and rates pain 5/10 but worse with walking. Review of Systems Constitutional: Negative for chills and fever. Respiratory: Negative. Cardiovascular: Negative. Gastrointestinal: Positive for abdominal pain. Musculoskeletal: Positive for back pain and joint pain (SI joint pain). Negative for falls. BP 122/72 Pulse 80 Temp 36.6 C (97.9 F) Resp 16 Wt 77.6 kg (171 lb) LMP 05/07/2023 (Exact Date) SpO2 98% BMI 30.29 kg/m PAST MEDICAL HISTORY Diagnosis Date Back pain Overweight (BMI 25.0-29.9) 11/22/2014 No past surgical history on file. ALLERGIES Patient has no known allergies. MEDICATIONS hydrOXYzine pamoate (VISTARIL) 25 mg capsule Take 1 capsule by mouth daily at bedtime. sertraline (ZOLOFT) 25 mg tablet Take 1 tablet by mouth once daily. Okay to start with a half a pill daily for the first week then increase to 1 full tab daily docusate sodium (COLACE) 100 mg capsule Take 1 capsule by mouth two times a day. ondansetron (ZOFRAN) 4 mg tablet Take 1 tablet by mouth every 8 hours as needed for nausea/vomiting. no.167-folic acid-dha 400 mcg- 25 mg chew Take 1 tablet by mouth once daily. multivit,calc,mins/iron/folic (ONE-A-DAY WOMENS FORMULA ORAL) Take by mouth. (Patient not taking: Reported on 06/25/2023) FAMILY HISTORY Problem Relation Age of Onset Asthma Mother Cataract Mother Cataract Maternal Grandmother Cataract Maternal Grandfather other (Heart, brain mass) Maternal Grandfather Breast Cancer Other great grandmother-p Cataract Paternal Grandmother Cataract Paternal Grandfather Social History Tobacco Use Smoking status: Former Packs/day: 0.50 Years: 5.00 Additional pack years: 0.00 Total pack years: 2.50 Types: Cigarettes Smokeless tobacco: Never Tobacco comments: vape Vaping Use Vaping Use: Former Substance Use Topics Alcohol use: Not Currently Comment: occasionally Drug use: No Objective Physical Exam Vitals and nursing note reviewed. Constitutional: General: She is not in acute distress. Appearance: Normal appearance. Cardiovascular: Rate and Rhythm: Normal rate and regular rhythm. Heart sounds: Normal heart sounds. Pulmonary: Effort: Pulmonary effort is normal. No respiratory distress. Breath sounds: Normal breath sounds. No wheezing or rales. Musculoskeletal: Lumbar back: Tenderness present. Normal range of motion. Positive right straight leg raise test and positive left straight leg raise test. Back: Neurological: Mental Status: She is alert. ASSESSMENT/PLAN: 1. Sciatica, right side - ICD9: 724.3, ICD10: M54.31 - I feel patients symptoms are consistent with sciatica; she states she has had sciatica before and this seems different. She is referred to ER for further evaluation and treatment due to . Zuleyma Castro APRN.EXECUTIVE ADVISOR documented in this encounter [facility] 09-08-2023 Miscellaneous Notes Patient has been identified by name and date of : No Patient phones for refill(s): Requested Prescriptions Pending Prescriptions Disp Refills sertraline (ZOLOFT) 25 mg tablet 30 tablet 2 Sig: Take 1 tablet by mouth once daily. Okay to start with a half a pill daily for the first week then increase to 1 full tab daily Date of last office visit in primary care: 05/13/2023 Date of next office visit in primary care: Visit date not found Last 2 Encounter Wt Readings: Date: Wt: 09/03/2023 73.2 kg (161 lb 6.4 oz) 08/04/2023 72.6 kg (160 lb) Previous labs/tests for medication: Not applicable Please advise. Thank you. Dolores Gayle. documented in this encounter [facility] 09-03-2023 Miscellaneous Notes LEANDER-S: Jyoti Aranda is a 33 year old female who presents at 17w0d with CHAYITO:02/11/2024, by Last Menstrual Period for a routine visit. Denies headache, visual changes, chest pain, shortness of breath, vaginal bleeding, leakage of fluid, or dysuria. Feeling well, no complaints. O: See flow sheet Gen: No apparent distress Abd: Gravid nontender ASSESSMENT/PLAN: 1. 17 weeks gestation of 2. Encounter for supervision of other normal in second trimester P: 1) PTL precautions reviewed and when to call 2) RTO in 4 weeks 3) Did not start Aspirin, reviewed recommendation to start 4) Anatomy US scheduled Shu Reeves APRN.CNM documented in this encounter [facility] 09-03-2023 Instructions Shu Reeves APRN.CNM - 09/03/2023 4:21 PM EST Aspirin 81mg by mouth once daily for prevention of preeclampsia SEQUENTIAL SCREENINGS The [facility] offers sequential screenings for women who are interested in screenings for chromosomal abnormalities and certain defects during a . The sequential screen combines ultrasound and blood tests to determine the risk of chromosomal abnormalities, including Down's Syndrome (Trisomy 21) and Trisomy 18, as well as open neural tube defects including spina bifida. Ultrasound examination is performed between 11 weeks and 13 weeks gestational age. Blood tests are drawn after the ultrasound and again later in the between 15 and 21 weeks gestational age. Please let your physician know if you are interested in this testing. It will require an appointment with our speech therapist technician. This is not an ultrasound performed by a physician in our office during a routine visit. SIGNS AND SYMPTOMS OF LABOR 1. Contractions every 10 minutes or more often 2. Clear, pink, or brownish fluid (water) leaking from vagina 3. Feeling that baby is pushing down, pressure 4. Low, dull backache 5. Cramps that feel like a period 6. Cramps with or without diarrhea If you notice any of the above symptoms, contact our office at [phone] and ask to speak with a nurse. After hours, you can call doctors registry at [phone] OR call [facility] at [phone] and ask to have the doctor emulsion operator paged. If you consider this an emergency, dial 9-1-1 or go to your nearest emergency department. NEED HELP? Are you dealing with a violent or abusive relationship? Are you a victim of rape or sexual assult? Call [facility] ([place]) 24 hour Crisis Hotline: 217.239.6826 or 524-110-7257. MANUAL Your Guide to a Healthy manual is now on-line. Visit [email or web address] ncyGuide to download your free copy documented in this encounter [facility] 08-04-2023 Miscellaneous Notes SW- Doing well. N/V controlled with B6 and Zofran. Having constipation. PE: Gen- NAD, well appearing See flowsheet A/p 12 wk gestation - Discussed Miralax and Colace, hydration, prune juice for constipation - Discussed checking cost and coverage of NIPT. Pt plans to check coverage today. NIPT today - NT normal today - RTO 4 wks Abelino Kessler DO documented in this encounter [facility] 08-04-2023 Instructions Patti Sácnhez MA - 08/04/2023 2:17 PM EDT SEQUENTIAL SCREENINGS The [facility] offers sequential screenings for women who are interested in screenings for chromosomal abnormalities and certain defects during a . The sequential screen combines ultrasound and blood tests to determine the risk of chromosomal abnormalities, including Down's Syndrome (Trisomy 21) and Trisomy 18, as well as open neural tube defects including spina bifida. Ultrasound examination is performed between 11 weeks and 13 weeks gestational age. Blood tests are drawn after the ultrasound and again later in the between 15 and 21 weeks gestational age. Please let your physician know if you are interested in this testing. It will require an appointment with our speech therapist technician. This is not an ultrasound performed by a physician in our office during a routine visit. SIGNS AND SYMPTOMS OF LABOR 1. Contractions every 10 minutes or more often 2. Clear, pink, or brownish fluid (water) leaking from vagina 3. Feeling that baby is pushing down, pressure 4. Low, dull backache 5. Cramps that feel like a period 6. Cramps with or without diarrhea If you notice any of the above symptoms, contact our office at [phone] and ask to speak with a nurse. After hours, you can call doctors registry at [phone] OR call [facility] at [phone] and ask to have the doctor emulsion operator paged. If you consider this an emergency, dial 9--1 or go to your nearest emergency department. NEED HELP? Are you dealing with a violent or abusive relationship? Are you a victim of rape or sexual assult? Call [facility] ([place]) 24 hour Crisis Hotline: 410.746.9429 or 826-057-3747. MANUAL Your Guide to a Healthy manual is now on-line. Visit [email or web address] ncyGuide to download your free copy documented in this encounter [facility] 07-29-2023 Miscellaneous Notes Patient notified. STEPHON ALMONTE RN Noted & agree with recommendations. Rx zofran sent. Dakota Sidhu MD Patient called reporting constant nausea and frequent vomiting. Had to leave work because of vomiting. Patient reports LEANDER telling her to call in if she felt she needed a prescription for nausea. She has been using vitamin b6 and unisom with no improvement. Advised to go to ER if unable to keep any fluids or food down in 24 hours. Please advise in LEANDER absence. Stephon Almonte RN documented in this encounter [facility] 07-15-2023 Miscellaneous Notes risk assessment form complete Coco Ko RN documented in this encounter [facility] 07-11-2023 Note HNO ID: [id number] Author: Shu Reeves APRN.CNM Service: ? Author Type: Rn Placement Type: Progress Notes Filed: 07/11/2023 5:16 PM Note Text: OB point of care ultrasound was performed. See imaging tab for details. Shu Reeves APRN.CNM [facility] 07-11-2023 History of Present illness Narrative OB point of care ultrasound was performed. See imaging tab for details. Shu Reeves APRN.CNM documented in this encounter [facility] 07-11-2023 Note HNO ID: [id number] Author: Shu Reeves APRN.CNM Service: ? Author Type: Rn Placement Type: Progress Notes Filed: 07/18/2023 3:08 PM Note Text: INITIAL OB ASSESSMENT OB Provider: Shu Reeves APRN CNM HPI: Jyoti is a 33 year old White here to establish Obstetrical Care. Patient's last menstrual period was 05/07/2023 (exact date). from OB Dating Form. Cycles regular was unplanned but accepted. Father is different father from her 2 previous children. Complaints: N/V OB History T0 L2 SAB0 IAB0 Ectopic0 Multiple0 Live Births2 Previous history: Prior : never History of 4th degree laceration: No History of shoulder dystocia: No History of Hypertensive disorders including pre-eclampsia, chronic hypertension or gestational hypertension: No History of gestational diabetes: No Patient's Risk Screening for delivery: Have you had a prior russo between 20w and 36w6d?: No States that she was 36 weeks and on bedrest for 4 weeks per patient. No antepartum management. MEDICAL/PSYCHOSOCIAL HISTORY: History of hemorrhage or bleeding concerns: Yes - hemorrhage with first . Thyroid Disease: No History of chronic hypertension: No History of pre-existing diabetes: No BMI 27.10 kg/(m2) History of abnormal pap: No Prior treatment for cervical dysplasia: none. 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 I don't have enough money to pay my bills: Never Within the past 12 months, have you worried that your food would run out before you had money to buy more: Never In the past 12 months, has lack of reliable transportation kept you from going to medical appointments or work, or from keeping things needed for daily living: Never In the past 12 months, have you had any concerns about having a place to live, or about the condition or quality of your housing: Never Are there any cultural or spiritual needs we should be aware of: No Depression/Anxiety Screening: denies symptoms of depression. Denies being treated or diagnosis with PP Depression with each but states she does think she had this and wasn't really discussed. OB Depression and Anxiety Screening- This Encounter (since 07/10/2023) Over the past 2 weeks have you felt down, depressed, or hopeless? Negative Over the past two weeks, have you felt little interest or pleasure in doing things?? Negative Feeling nervous, anxious or on edge 0-Not at all Not being able to stop or control worrying 0-Not al all Anxiety Pre-Screening Total (If >/= 3 additional questions will be reviewed) 0 Genetic Screening: Partner present: Yes Patient verbalized knowledge of partner family health history: Yes Do you or your partner have any personal or family history of defects not previously discussed: No Do you have history of a complicated by anomaly, genetic condition, or demise: No ACOG Recommended Screening Screening for early gestational diabetes testing: Criteria for early testing requires elevated BMI plus one other risk factor: BMI 27.10 kg/(m2) (risk factor if > than 25 or 23 in Americans) Additional risk factors: Have previously given to an infant weighing 4,000g (approximately 9 lb) or more She does meet ACOG criteria for early gestational DM screening. 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 Current Outpatient Medications Medication Sig Dispense Refill no.167-folic acid-dha 400 mcg- 25 mg chew Take 1 tablet by mouth once daily. 90 tablet 3 sertraline (ZOLOFT) 25 mg tablet Take 1 tablet by mouth once daily. Okay to start with a half a pill daily for the first week then increase to 1 full tab laila (more content not included)... [facility] 07-11-2023 History of Present illness Narrative INITIAL OB ASSESSMENT OB Provider: Shu Reeves APRN CNM HPI: Jyoti is a 33 year old White here to establish Obstetrical Care. Patient's last menstrual period was 05/07/2023 (exact date). from OB Dating Form. Cycles regular was unplanned but accepted. Father is different father from her 2 previous children. Complaints: N/V OB History T0 L2 SAB0 IAB0 Ectopic0 Multiple0 Live Births2 Previous history: Prior : never History of 4th degree laceration: No History of shoulder dystocia: No History of Hypertensive disorders including pre-eclampsia, chronic hypertension or gestational hypertension: No History of gestational diabetes: No Patient's Risk Screening for delivery: Have you had a prior russo between 20w and 36w6d?: No States that she was 36 weeks and on bedrest for 4 weeks per patient. No antepartum management. MEDICAL/PSYCHOSOCIAL HISTORY: History of hemorrhage or bleeding concerns: Yes - hemorrhage with first . Thyroid Disease: No History of chronic hypertension: No History of pre-existing diabetes: No BMI 27.10 kg/(m^2) History of abnormal pap: No Prior treatment for cervical dysplasia: none. 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 I don't have enough money to pay my bills: Never Within the past 12 months, have you worried that your food would run out before you had money to buy more: Never In the past 12 months, has lack of reliable transportation kept you from going to medical appointments or work, or from keeping things needed for daily living: Never In the past 12 months, have you had any concerns about having a place to live, or about the condition or quality of your housing: Never Are there any cultural or spiritual needs we should be aware of: No Depression/Anxiety Screening: denies symptoms of depression. Denies being treated or diagnosis with PP Depression with each but states she does think she had this and wasn't really discussed. OB Depression and Anxiety Screening- This Encounter (since 07/10/2023) Over the past 2 weeks have you felt down, depressed, or hopeless? Negative Over the past two weeks, have you felt little interest or pleasure in doing things? Negative Feeling nervous, anxious or on edge 0-Not at all Not being able to stop or control worrying 0-Not al all Anxiety Pre-Screening Total (If >/= 3 additional questions will be reviewed) 0 Genetic Screening: Partner present: Yes Patient verbalized knowledge of partner family health history: Yes Do you or your partner have any personal or family history of defects not previously discussed: No Do you have history of a complicated by anomaly, genetic condition, or demise: No ACOG Recommended Screening Screening for early gestational diabetes testing: Criteria for early testing requires elevated BMI plus one other risk factor: BMI 27.10 kg/(m^2) (risk factor if > than 25 or 23 in Americans) Additional risk factors: Have previously given to an infant weighing 4,000g (approximately 9 lb) or more She does meet ACOG criteria for early gestational DM screening. 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 Current Outpatient Medications Medication Sig Dispense Refill no.167-folic acid-dha 400 mcg- 25 mg chew Take 1 tablet by mouth once daily. 90 tablet 3 sertraline (ZOLOFT) 25 mg tablet Take 1 tablet by mouth once daily. Okay to start with a half a pill daily for the first week then increase to 1 full tab daily 30 tablet 2 buPROPion XL (WELLBUTRIN XL) 150 mg 24 hr tablet Take 1 tablet by mouth once daily. (Patient not taking: Reported on 06/25/2023) 30 tablet 2 multivit,calc,mins/iron/folic (ONE-A-DAY WOMENS FORMULA ORAL) Take by mouth. (Patient not taking: Reported on 06/25/2023) No current facility-administered medications for this visit. Allergies As of Date: 07/11/2023 (No Known Allergies) Fully Assessed 07/11/2023 Does patient have penicillin allergy: No REVIEW OF SYSTEMS: GENERAL: Negative for: Fever or Chills HEENT: Negative for: Headache, Impaired Vision, Ringing in Ears, Nosebleeds NECK: Negative for: Swelling, Pain, Stiffness RESPIRATORY: Negative for: Cough, Shortness of breath, Wheezing GASTROINTESTINAL: Negative for: Heartburn, Constipation, Diarrhea, Blood in stool, Vomiting MUSCULOSKELETAL: Negative for: Muscle or joint pain, stiffness, Joint swelling NEUROLOGIC/PSYCHIATRIC: Negative for: Weakness, Paralysis, Numbness, Tingling, Tremor, Anxiety, Depression, Memory loss SKIN: Negative for: Rash, Itching GENITOURINARY: Negative for: vaginal itching, vaginal discharge, hematuria or dysuria PHYSICAL EXAM: BP 112/60 Ht 5' 3 (1.60m) Wt 153 lb (69.4kg) LMP 05/07/2023 BMI 27.11 kg/(m^2). GENERAL: pleasant in no apparent distress DERMATOLOGY: Normal, without lesions, non-icteric, and non-hirsute NECK: Supple, full range of motion, no adenopathy, and thyroid normal CHEST: Normal inspiratory effort BREAST: soft, non-tender, symmetric, no dominant mass, normal nipple-areolar complex, no lymphadenopathy, and no nipple discharge ABDOMEN: soft, non-tender, and no masses NEURO: alert and oriented x3,exam grossly non-focal PELVIS: External genitalia normal without lesions. Perineal body intact. No vaginal or cervical lesions. Cervix closed. Uterus 10 week size. No adnexal masses or tenderness. Clinical Pelvimetry: Pelvimetry clinically assessed as adequate Limited OB ultrasound exam: single intrauterine , positive cardiac activity, crown-rump length 161, and normal bilateral adnexa OB Risk Screening: Completed, no positive findings documented. ASSESSMENT: 33 year old at Unknown wks gestational age PLAN: 1) Patient oriented to practice. Patient given new OB orientation folder. Discussed nutrition, folic acid supplementation, dietary guidelines, exercise, smoking, alcohol, caffeine, and drug use. Discussed gestational weight gain guidelines. Discussed routine OB labs including STD/HIV. Discussed aneuploidy and carrier screening. Regarding aneuploidy screening, nuchal translucency/first trimester early anatomy ultrasound and NIPT were discussed. Regarding carrier screening, the myriad screen was discussed. The risks/benefits and limitations of NIPT/aneuploidy screening were reviewed including the potential for false negative and false positive results. We discussed the availability of professional-society guided carrier screening and reviewed the conditions screened and limitations of screening. The availability of genetic counseling was reviewed. Information on aneuploidy/carrier screening was provided. The patient chooses: Aneuploidy screening: is uncertain. She will call back if she wants to proceed with screening. Pt aware of timing. and Carrier screening: Uncertain Discussed hemoglobin electrophoresis. Patient: Accepts Patient offered option of Virtual Visits. Patient prefers in person visits. Reviewed midwifery and telephone engineer services that are available. Follow up in 4 weeks or sooner prn. Shu Reeves APRN.CNM documented in this encounter [facility] 07-11-2023 Instructions Shu Reeves APRN.CNM - 07/11/2023 1:00 PM EDT Please select the following link to access the [facility] Your Guide to a Healthy . [email or web address] After 12 weeks start Aspirin 81mg by mouth once daily for prevention of preeclampsia/high blood pressure Nausea and Vomitin) Vitamin B6 50 mg by mouth twice daily. Take this daily until approximately 14 weeks for prevention. 2) Unisom 1/2 tablet by mouth at bedtime. May increase to full tablet if needed. If no improvement in nausea may up to a full tablet every 8 hours as needed. Ondansetron (Zofran ) May 06, 2020 This sheet talks about exposure to ondansetron in a and while . This information should not take the place of medical care and advice from your healthcare provider. What is ondansetron? Ondansetron is a medication used to treat nausea and vomiting that may be caused by surgery, chemotherapy, or radiation therapy. Ondansetron has also been prescribed during to help with symptoms of nausea and vomiting in (NVP). NVP is also referred to as morning sickness . Ondansetron is taken by mouth, infused into a vein (by IV) or given by injection into a muscle (IM). Ondansetron is sold under the brand name Zofran . What can I do to help control my nausea and vomiting? [employer] has a helpful fact sheet on nausea in with recommendations. You can review it here: https://mothertobaby.org/fact-she ets/batgha-tzfntygd-kbuitmqqo-nvp /pdf/. Also, eating small meals often, drinking plenty of clear fluids, and avoiding triggers (such as odors, heat, and spicy or high fat foods) can help. Talk to your healthcare provider about which NVP treatments are right for you. I take ondansetron. Can it make it harder for me to become ? There are no studies that have looked to see if ondansetron could make it harder for a person to get . Studies in animals did not find that ondansetron would affect the ability to get . Does taking ondansetron increase the chance for miscarriage? Miscarriage can occur in any . One study did not find that miscarriage happened more often for those who reported that they used ondansetron in the first trimester of . Does taking ondansetron increase the chance of defects? Every starts out with a 3-5% chance of having a defect. This is called the background risk. Most studies have found no increased chance for defects among thousands of people who used ondansetron in the first trimester of . A few studies reported a very small (less than 1%) increase in the chance for a cleft palate (an opening in the roof of the mouth that may be repaired with surgery) or a heart defect. Because of other factors that could affect the pregnancies exposed to ondansetron, it is not known if ondansetron actually increases the chance of defects. Could taking ondansetron cause other complications? Studies did not find a higher chance of loss, delivery (delivery before 37 weeks of ), or low weight when ondansetron was used during . At higher doses, there have been reports that ondansetron use might cause a heart rhythm problem (called QT interval prolongation) in the person taking ondansetron. In severe cases, this could become an abnormal heart rhythm known as Torsades de Pointes. If you are taking ondansetron, you can talk to your healthcare provider about how to watch for changes in your heart rhythm. Does taking ondansetron in cause long-term problems in behavior or learning for the baby? One study looked at 78 infants who were exposed to ondansetron at any time during . The infants were looked at between 7 days to 2 months of age and did not show any signs of unusual behaviors. A single follow-up survey for about 25 of these children was sent in by the parents. The children were between 1 to 5 years old. The survey asked about behavior. The surveys did not report behavior differences in these children compared to children who were not exposed ondansetron during . There are no other studies looking at the use of ondansetron in and long-term effects for the baby. Can I breastfeed while taking ondansetron? There have been no studies in humans looking at the use of ondansetron during . Studies in animals suggest that ondansetron enters breast milk, but the effects of ondansetron on a infant are not known. If ondansetron use is necessary, it is not usually a reason to stop . A different drug may be considered, especially while a or infant. Be sure to talk to your healthcare provider about all your questions. I take ondansetron. Can it make it harder for me to get my partner or increase the chance of defects? There are no human studies looking at male use of ondansetron. Animal studies have not shown any effect on male fertility. In general, exposures that fathers and sperm donor have are unlikely to increase risks to a . For more information, please see the [employer] fact sheet Paternal Exposures at https://[employer].org/fact-she ets/utyoxwoz-awrhzrtfx-lnrpoixkg/ pdf/. Metoclopramide October 06, 2019 This sheet talks about exposure to metoclopramide in a and while . This information should not take the place of medical care and advice from your healthcare provider. What is metoclopramide? Metoclopramide is a medication that has been used to treat gastrointestinal motility issues, for nausea and vomiting caused by surgical operations, chemotherapy, or , and to help with . This medication has been sold under band names such as Reglan , Maxolon or Metozolv ODT . Can taking metoclopramide made it harder for me to get ? There have been some reports of menstrual problems and galactorrhea (milk production that is not related to ) among women who have taken metoclopramide. Women who have these side effects might have a harder time becoming . However, studies have not suggested that metoclopramide would affect fertility (a person s ability to get ). I have been taking metoclopramide and just found out I am . Should I stop? You should speak with your healthcare provider before making changes in this medication. If you are experiencing nausea and vomiting or gastrointestinal problems that are affecting your ability to function, speak with your healthcare provider about which medication would be best for you and your baby. For more information on nausea and vomiting in , please see the [employer] fact sheet on Nausea and Vomiting in at https://[employer]umboe.org/fact-she ets/gzbiap-xccxbxrr-lysijcdnp-nvp /pdf/. Can metoclopramide increase the chance for a miscarriage? Miscarriage can occur in any . A small number of studies did not find an increased chance for miscarriage among women taking metoclopramide. Can taking metoclopramide during cause defects? In every , a woman starts out with a 3-5% chance of having a baby with a defect. This is called her background risk. Current information does not suggest an increased chance for defects when metoclopramide is taken early in . Can taking metoclopramide during cause other complications? For the woman, maybe. There are case reports of women who developed severe side effects while taking metoclopramide during which required them to be admitted to a hospital for treatment. In these reports, 2 women developed movement disorders (known as tardive dyskinesia) and 2 other women developed intermittent porphyria (a condition that affects the body s ability to make red blood cells) which led to psychiatric conditions. All reports showed that these women got well with treatment and went on to have healthy newborns. These reports do not tell us how often this may occur during and more studies are needed. If you are taking metoclopramide tell your healthcare provider about any changes in your mood or any movement disorders such as lip smacking, jerky eye movements, or jerky limb movements. Can I breastfeed while taking metoclopramide? Most likely. There is limited information on the use of metoclopramide during . Metoclopramide can cross into the breast milk. While most reports have not listed any side effects in the nursing infants, it has not been well studied. If your baby was to experience side effects, it would most likely be stomach discomfort and gas. If you are worried about any symptoms the baby has, contact the child s healthcare provider. Metoclopramide use while might increase your chance for post- depression. Any changes in your mood should be reported to your healthcare provider. Is it true that metoclopramide can increase the amount of milk that I make? There are some small studies that looked at whether metoclopramide increases or causes milk production. One study found that metoclopramide use could slightly increase the amount of milk produced while a similar study found that it did not increase milk production. If you are having trouble with milk production, working with a retail wireless sales consultant may be the most helpful in increasing your breastmilk production. Be sure to talk to your health care provider about all of your questions. What if the father of the baby takes metoclopramide? There is no evidence that suggests that a man s metoclopramide use would cause any problems during his partner s . In general, medications that the father takes do not increase risk to a . For more information, please see the MotherToBaby fact sheet on Paternal Exposures at https://mothertobaby.org/fact-she ets/xxtjfoqm-hwmfpdbmn-gpxuikxef/ pdf/. [facility] CenteringPregnancy is care that includes a traditional visit with additional time and attention in a group setting. You will meet with your provider and other women who are due near the same time for 10 sessions during your . CenteringPregnancy is a way for you to share learning and experiences with other women and to be an active participant in your own healthcare. What do CenteringPregnancy appointments usually include? ? Your care visit - Follows standard visit schedule ? Your weight, blood pressure, and heart rate monitoring ? Important information and resources for you and your baby ? Time to talk about , childbirth, and family with a group of women who are going through the same experiences *support person welcome! [facility] [place] [facility] group #2 with Shu Reeves CNM and Sarina Montoya CNM at 9:30 a.m. -11:30 am on these Wednesdays Due dates through December 2023 May 21 - Session 1 June 18 - Session 2 July 16 - Session 3 August 13 - Session 4 September 03 - Session 5 September 17 - Session 6 October 01 - Session 7 October 15 - Session 8 October 29 - Session 9 November 19 - Session 10 documented in this encounter [facility] 06-25-2023 Note HNO ID: [id number] Author: Stephanie Sidhu APRN.MARY Service: ? Author Type: Nurse Practitioner Type: Progress Notes Filed: 06/25/2023 10:04 AM Note Text: CC: Patient presents with: Sore Throat: ST, SALAZAR, congestion and fatigue x 1 day-COVID exposure HPI: Jyoti Aranda is a 33 year old female who presents to the office with complaint of head congestion and sore throat for the past day. Symptoms are staying the same. Associated symptoms includes fatigue. Denies fever, nausea, vomiting , and diarrhea. Treatments tried include nothing so far. with no relief of symptoms. Sick contacts: yes. History of asthma, frequent episodes of bronchitis, chronic bronchitis, bronchiectasis or COPD: No Smoker: No Seasonal/environmental allergies: No The ROS is otherwise negative. The patient's pmh, medications, allergies, and past visits are reviewed. PHYSICAL EXAM: BP 118/82 Pulse 72 Temp 36.6 ?C (97.8 ?F) (Tympanic) Resp 18 Wt 68.9 kg (152 lb) LMP 03/10/2023 (Exact Date) SpO2 99% BMI 30.70 kg/m? General appearance: alert, cooperative, pleasant, in no acute distress Head: Normocephalic Eyes: EOM's intact, conjunctiva pink and moist, no icterus, sclera white, non-injected Ears: Right ear: External ear/canal- Normal, TM - clear with good landmarks. Left ear: External ear/canal- Normal, TM - clear with good landmarks Heart: Negative. RRR without obvious murmur, gallop, or rubs. No ectopy. Lungs: clear to auscultation, without rales or wheeze, good air exchange PAST MEDICAL HISTORY Diagnosis Date Back pain Overweight (BMI 25.0-29.9) 11/22/2014 No past surgical history on file. ALLERGIES Patient has no known allergies. MEDICATIONS no.167-folic acid-dha 400 mcg- 25 mg chew Take 1 tablet by mouth once daily. sertraline (ZOLOFT) 25 mg tablet Take 1 tablet by mouth once daily. Okay to start with a half a pill daily for the first week then increase to 1 full tab daily buPROPion XL (WELLBUTRIN XL) 150 mg 24 hr tablet Take 1 tablet by mouth once daily. (Patient not taking: Reported on 06/25/2023) multivit,calc,mins/iron/folic (ONE-A-DAY WOMENS FORMULA ORAL) Take by mouth. (Patient not taking: Reported on 06/25/2023) FAMILY HISTORY Problem Relation Age of Onset Asthma Mother Cataract Mother Cataract Maternal Grandmother Cataract Maternal Grandfather other (Heart, brain mass) Maternal Grandfather Breast Cancer Other great grandmother-p Cataract Paternal Grandmother Cataract Paternal Grandfather Social History Tobacco Use Smoking status: Former Packs/day: 0.50 Years: 5.00 Additional pack years: 0.00 Total pack years: 2.50 Types: Cigarettes Smokeless tobacco: Never Tobacco comments: vape Vaping Use Vaping Use: Former Substance Use Topics Alcohol use: Yes Alcohol/week: 0.0 standard drinks of alcohol Comment: occasionally Drug use: No ASSESSMENT/PLAN: 1. URI, acute - ICD9: 465.9, ICD10: J06.9 - COVID AND INFLUENZA A/B AND RSV NAAT, ROUTINE OTC medication appropriate for . Potential red flag symptoms discussed with the patient. Reviewed appropriate action plan to take if red flag symptoms occur. Patient agreeable to treatment plan. Stephanie Sidhu APRN.[facility] 06-25-2023 History of Present illness Narrative CC: Patient presents with: Sore Throat: ST, SALAZAR, congestion and fatigue x 1 day-COVID exposure HPI: Jyoti Aranda is a 33 year old female who presents to the office with complaint of head congestion and sore throat for the past day. Symptoms are staying the same. Associated symptoms includes fatigue. Denies fever, nausea, vomiting , and diarrhea. Treatments tried include nothing so far. with no relief of symptoms. Sick contacts: yes. History of asthma, frequent episodes of bronchitis, chronic bronchitis, bronchiectasis or COPD: No Smoker: No Seasonal/environmental allergies: No The ROS is otherwise negative. The patient's pmh, medications, allergies, and past visits are reviewed. PHYSICAL EXAM: BP 118/82 Pulse 72 Temp 36.6 C (97.8 F) (Tympanic) Resp 18 Wt 68.9 kg (152 lb) LMP 03/10/2023 (Exact Date) SpO2 99% BMI 30.70 kg/m General appearance: alert, cooperative, pleasant, in no acute distress Head: Normocephalic Eyes: EOM's intact, conjunctiva pink and moist, no icterus, sclera white, non-injected Ears: Right ear: External ear/canal- Normal, TM - clear with good landmarks. Left ear: External ear/canal- Normal, TM - clear with good landmarks Heart: Negative. RRR without obvious murmur, gallop, or rubs. No ectopy. Lungs: clear to auscultation, without rales or wheeze, good air exchange PAST MEDICAL HISTORY Diagnosis Date Back pain Overweight (BMI 25.0-29.9) 11/22/2014 No past surgical history on file. ALLERGIES Patient has no known allergies. MEDICATIONS no.167-folic acid-dha 400 mcg- 25 mg chew Take 1 tablet by mouth once daily. sertraline (ZOLOFT) 25 mg tablet Take 1 tablet by mouth once daily. Okay to start with a half a pill daily for the first week then increase to 1 full tab daily buPROPion XL (WELLBUTRIN XL) 150 mg 24 hr tablet Take 1 tablet by mouth once daily. (Patient not taking: Reported on 06/25/2023) multivit,calc,mins/iron/folic (ONE-A-DAY WOMENS FORMULA ORAL) Take by mouth. (Patient not taking: Reported on 06/25/2023) FAMILY HISTORY Problem Relation Age of Onset Asthma Mother Cataract Mother Cataract Maternal Grandmother Cataract Maternal Grandfather other (Heart, brain mass) Maternal Grandfather Breast Cancer Other great grandmother-p Cataract Paternal Grandmother Cataract Paternal Grandfather Social History Tobacco Use Smoking status: Former Packs/day: 0.50 Years: 5.00 Additional pack years: 0.00 Total pack years: 2.50 Types: Cigarettes Smokeless tobacco: Never Tobacco comments: vape Vaping Use Vaping Use: Former Substance Use Topics Alcohol use: Yes Alcohol/week: 0.0 standard drinks of alcohol Comment: occasionally Drug use: No ASSESSMENT/PLAN: 1. URI, acute - ICD9: 465.9, ICD10: J06.9 - COVID & INFLUENZA A/B & RSV NAAT, ROUTINE OTC medication appropriate for . Potential red flag symptoms discussed with the patient. Reviewed appropriate action plan to take if red flag symptoms occur. Patient agreeable to treatment plan. Stephanie Sidhu APRN.MARY documented in this encounter [facility] 06-06-2023 Note HNO ID: [id number] Author: Chandler Burton MD Service: ? Author Type: Physician Type: Progress Notes Filed: 06/06/2023 1:35 PM Note Text: Patient presents with: test: Only 1 day late HPI: Has had 2 positive tests at home. LMP 05/07/2023. She has had a little abdominal cramping, acne, and breast tenderness. No vaginal bleeding. She has 2 daughters. She was using spermicide and condoms for control. PAST MEDICAL HISTORY Diagnosis Date Back pain Overweight (BMI 25.0-29.9) 11/22/2014 MEDICATIONS: Current Outpatient Medications Medication Sig buPROPion XL (WELLBUTRIN XL) 150 mg 24 hr tablet Take 1 tablet by mouth once daily. sertraline (ZOLOFT) 25 mg tablet Take 1 tablet by mouth once daily. Okay to start with a half a pill daily for the first week then increase to 1 full tab daily multivit,calc,mins/iron/folic (ONE-A-DAY WOMENS FORMULA ORAL) Take by mouth. No current facility-administered medications for this visit. ALLERGIES: ALLERGIES No Known Allergies VITALS: BP 126/80 Pulse 94 Temp 37.3 ?C (99.2 ?F) Resp 21 Wt 69.4 kg (153 lb) LMP 03/10/2023 (Exact Date) SpO2 99% BMI 30.90 kg/m? PHYSICAL EXAM: GEN: NAD ASSESSMENT/PLAN: 1. Positive urine test - ICD9: V72.42, ICD10: Z32.01 - HCG QUAL UR B/O positive. 4 weeks by LMP. Start - VITAMIN NO.167-FOLIC ACID 400 MCG-DHA 25 MG CHEWABLE TABLET She feels she really needs to continue her anxiety medicine. She may continue taking zoloft. She plans to wean off wellbutrin (taken mostly to help with tiredness). Schedule follow up with OB in 4 weeks. Chandler Burton MD [facility] 06-06-2023 History of Present illness Narrative Patient presents with: test: Only 1 day late HPI: Has had 2 positive tests at home. LMP 05/07/2023. She has had a little abdominal cramping, acne, and breast tenderness. No vaginal bleeding. She has 2 daughters. She was using spermicide and condoms for control. PAST MEDICAL HISTORY Diagnosis Date Back pain Overweight (BMI 25.0-29.9) 11/22/2014 MEDICATIONS: Current Outpatient Medications Medication Sig buPROPion XL (WELLBUTRIN XL) 150 mg 24 hr tablet Take 1 tablet by mouth once daily. sertraline (ZOLOFT) 25 mg tablet Take 1 tablet by mouth once daily. Okay to start with a half a pill daily for the first week then increase to 1 full tab daily multivit,calc,mins/iron/folic (ONE-A-DAY WOMENS FORMULA ORAL) Take by mouth. No current facility-administered medications for this visit. ALLERGIES: ALLERGIES No Known Allergies VITALS: BP 126/80 Pulse 94 Temp 37.3 C (99.2 F) Resp 21 Wt 69.4 kg (153 lb) LMP 03/10/2023 (Exact Date) SpO2 99% BMI 30.90 kg/m PHYSICAL EXAM: GEN: NAD ASSESSMENT/PLAN: 1. Positive urine test - ICD9: V72.42, ICD10: Z32.01 - HCG QUAL UR B/O positive. 4 weeks by LMP. Start - VITAMIN NO.167-FOLIC ACID 400 MCG-DHA 25 MG CHEWABLE TABLET She feels she really needs to continue her anxiety medicine. She may continue taking zoloft. She plans to wean off wellbutrin (taken mostly to help with tiredness). Schedule follow up with OB in 4 weeks. Chandler Burton MD documented in this encounter [facility] 06-04-2023 Note HNO ID: [id number] Author: Shu Urias RDMS Service: ? Author Type: Computer Support Analyst Type: Progress Notes Filed: 06/04/2023 2:59 PM Note Text: Radiology Service Progress Note PATIENT NAME: Jyoti Aranda DATE OF SERVICE: June 04, 2023 TIME: 2:59 PM PATIENT IDENTITY VERIFICATION COMPLETED USING TWO (2) IDENTIFIERS: Name and Date of confirmed by patient verbally. FALL SCREENING: Has the patient had 2 falls in the last year or 1 fall with injury or currently using an Ambulatory Assistive Device (Walker, Cane, Wheelchair, Crutches, etc.)? No PATIENT GENDER DATA: Female. status: : No status: NO. PATIENT RELEVANT IMPLANT DATA REVIEWED: Not Applicable RADIOLOGY DEPARTMENT: Ultrasound PERIPHERAL IV DATA: Not applicable SIGNED BY: Shu Urias RDMS RVT June 04, 2023 2:59 PM [facility] 06-04-2023 Note HNO ID: [id number] Author: Radhika Saha RT(R) Service: ? Author Type: Technologist Type: Progress Notes Filed: 06/04/2023 1:49 PM Note Text: Radiology Service Progress Note PATIENT NAME: Jyoti Aranda DATE OF SERVICE: June 04, 2023 TIME: 1:49 PM PATIENT IDENTITY VERIFICATION COMPLETED USING TWO (2) IDENTIFIERS: Name and Date of confirmed by patient verbally. FALL SCREENING: Has the patient had 2 falls in the last year or 1 fall with injury or currently using an Ambulatory Assistive Device (Walker, Cane, Wheelchair, Crutches, etc.)? No PATIENT GENDER DATA: Female. status: : No status: NO. PATIENT RELEVANT IMPLANT DATA REVIEWED: Not Applicable RADIOLOGY DEPARTMENT: Mammography PERIPHERAL IV DATA: Not applicable SIGNED BY: RT Vladimir(R) June 04, 2023 1:49 PM [facility] 06-04-2023 History of Present illness Narrative Radiology Service Progress Note PATIENT NAME: Jyoti Aranda DATE OF SERVICE: June 04, 2023 TIME: 2:59 PM PATIENT IDENTITY VERIFICATION COMPLETED USING TWO (2) IDENTIFIERS: Name and Date of confirmed by patient verbally. FALL SCREENING: Has the patient had 2 falls in the last year or 1 fall with injury or currently using an Ambulatory Assistive Device (Walker, Cane, Wheelchair, Crutches, etc.)? No PATIENT GENDER DATA: Female. status: : No status: NO. PATIENT RELEVANT IMPLANT DATA REVIEWED: Not Applicable RADIOLOGY DEPARTMENT: Ultrasound PERIPHERAL IV DATA: Not applicable SIGNED BY: Shu Urias RDMS RVT June 04, 2023 2:59 PM documented in this encounter [facility] 05-29-2023 Miscellaneous Notes Pt notified of results and states understanding. Lisa Merida LPN Labs showed overgrowth of normal bacteria known as BV. Flagyl antibiotic prescription sent to the pharmacy to treat this. Other tests were negative. Follow-up with gynecology if symptoms persist. documented in this encounter [facility] 05-28-2023 Note HNO ID: [id number] Author: Shu Hackett APRN.EXECUTIVE ADVISOR Service: ? Author Type: Nurse Practitioner Type: Progress Notes Filed: 05/28/2023 11:03 AM Note Text: This note was created using [employer]. Subjective Jyoti Aranda is a 32 year old female. 32 year old female with PMH anxiety and depression presents for complaints of vaginal pain Acute onset last night. She associates the pain after having intercourse. +nausea Denies sx. Denies fever Denies emesis. Denies diarrhea Has utilized Ibuprofen and endorses that has helped Has been seen seen by PNEUMATIC PRESS HAND Endorses similar in past, one year ago States she went to ED and was evaluated at that time Denies that incident was accompanied with coitus. LMP-May 2 The history is provided by the patient. No outreach counselor was used. Vaginal Problem This is a recurrent problem. The current episode started yesterday. The problem occurs constantly. The problem has been unchanged. Pertinent negatives include no abdominal pain, arthralgias, chest pain, chills, congestion, coughing, fatigue, fever, headaches, joint swelling, myalgias, nausea, neck pain, numbness, rash, sore throat, swollen glands, urinary symptoms, vertigo, visual change, vomiting or weakness. Nothing aggravates the symptoms. She has tried nothing for the symptoms. PAST MEDICAL HISTORY Diagnosis Date Back pain Overweight (BMI 25.0-29.9) 11/22/2014 No past surgical history on file. ALLERGIES Patient has no known allergies. MEDICATIONS buPROPion XL (WELLBUTRIN XL) 150 mg 24 hr tablet Take 1 tablet by mouth once daily. sertraline (ZOLOFT) 25 mg tablet Take 1 tablet by mouth once daily. Okay to start with a half a pill daily for the first week then increase to 1 full tab daily multivit,calc,mins/iron/folic (ONE-A-DAY WOMENS FORMULA ORAL) Take by mouth. FAMILY HISTORY Problem Relation Age of Onset Asthma Mother Cataract Mother Cataract Maternal Grandmother Cataract Maternal Grandfather other (Heart, brain mass) Maternal Grandfather Breast Cancer Other great grandmother-p Cataract Paternal Grandmother Cataract Paternal Grandfather Social History Tobacco Use Smoking status: Former Packs/day: 0.50 Years: 5.00 Additional pack years: 0.00 Total pack years: 2.50 Types: Cigarettes Smokeless tobacco: Never Tobacco comments: vape Vaping Use Vaping Use: Former Substance Use Topics Alcohol use: Yes Alcohol/week: 0.0 standard drinks of alcohol Comment: occasionally Drug use: No Review of Systems Constitutional: Negative for chills, fatigue and fever. HENT: Negative for congestion and sore throat. Eyes: Negative for pain, discharge and itching. Respiratory: Negative for apnea, cough, choking and chest tightness. Cardiovascular: Negative for chest pain, palpitations and leg swelling. Gastrointestinal: Negative for abdominal pain, nausea and vomiting. Genitourinary: Negative for vaginal bleeding and vaginal discharge. +vaginal pain My cervix is swollen Musculoskeletal: Negative for arthralgias, joint swelling, myalgias and neck pain. Skin: Negative for color change, pallor and rash. Allergic/Immunologic: Negative for environmental allergies, food allergies and immunocompromised state. Neurological: Negative for vertigo, weakness, numbness and headaches. Hematological: Negative for adenopathy. Does not bruise/bleed easily. Psychiatric/Behavioral: Negative for agitation and behavioral problems. Objective BP 119/84 Pulse 70 Temp 36.9 ?C (98.5 ?F) Resp 21 Wt 68.6 kg (151 lb 3.2 oz) LMP 03/10/2023 (Exact Date) SpO2 99% BMI 30.54 kg/m? Physical Exam Vitals and nursing note reviewed. Exam conducted with a milliner helper present. Constitutional: General: She is not in acute distress. Appearance: Normal appearance. She is normal weight. She is not ill-appearing, toxic-appearing or diaphoretic. HENT: Head: Normocephalic and atraumatic. Right Ear: Ear canal and external ear normal. Left Ear: Ear canal and external ear normal. Nose: Nose normal. No congestion or rhinorrhea. Mouth/Throat: Mouth: Mucous membranes are moist. Pharynx: No oropharyngeal exudate or posterior oropharyngeal erythema. Eyes: General: Right eye: No discharge. Left eye: No discharge. Extraocular Movements: Extraocular movements intact. Conjunctiva/sclera: Conjunctivae normal. Pupils: Pupils are equal, round, and reactive to light. Cardiovascular: Rate and Rhythm: Normal rate and regular rhythm. Pulses: Normal pulses. Heart sounds: Normal heart sounds. No murmur heard. No friction rub. Pulmonary: Effort: Pulmonary effort is normal. No respiratory distress. Breath sounds: Normal breath sounds. No stridor. No wheezing, rhonchi or rales. Chest: Chest wall: No tenderness. Abdominal: General: Abdomen is flat. There is no distension. Palpations: Abdomen is soft. There is no mass. Tenderness: The (more content not included)... [facility] 05-28-2023 History of Present illness Narrative This note was created using [employer]. Subjective Jyoti Aranda is a 32 year old female. 32 year old female with PMH anxiety and depression presents for complaints of vaginal pain Acute onset last night. She associates the pain after having intercourse. +nausea Denies sx. Denies fever Denies emesis. Denies diarrhea Has utilized Ibuprofen and endorses that has helped Has been seen seen by PNE[facility]ATIC [facility] Endorses similar in past, one year ago States she went to ED and was evaluated at that time Denies that incident was accompanied with coitus. LMP-May 2 The history is provided by the patient. No outreach counselor was used. Vaginal Problem This is a recurrent problem. The current episode started yesterday. The problem occurs constantly. The problem has been unchanged. Pertinent negatives include no abdominal pain, arthralgias, chest pain, chills, congestion, coughing, fatigue, fever, headaches, joint swelling, myalgias, nausea, neck pain, numbness, rash, sore throat, swollen glands, urinary symptoms, vertigo, visual change, vomiting or weakness. Nothing aggravates the symptoms. She has tried nothing for the symptoms. PAST MEDICAL HISTORY Diagnosis Date Back pain Overweight (BMI 25.0-29.9) 11/22/2014 No past surgical history on file. ALLERGIES Patient has no known allergies. MEDICATIONS buPROPion XL (WELLBUTRIN XL) 150 mg 24 hr tablet Take 1 tablet by mouth once daily. sertraline (ZOLOFT) 25 mg tablet Take 1 tablet by mouth once daily. Okay to start with a half a pill daily for the first week then increase to 1 full tab daily multivit,calc,mins/iron/folic (ONE-A-DAY WOMENS FORMULA ORAL) Take by mouth. FAMILY HISTORY Problem Relation Age of Onset Asthma Mother Cataract Mother Cataract Maternal Grandmother Cataract Maternal Grandfather other (Heart, brain mass) Maternal Grandfather Breast Cancer Other great grandmother-p Cataract Paternal Grandmother Cataract Paternal Grandfather Social History Tobacco Use Smoking status: Former Packs/day: 0.50 Years: 5.00 Additional pack years: 0.00 Total pack years: 2.50 Types: Cigarettes Smokeless tobacco: Never Tobacco comments: vape Vaping Use Vaping Use: Former Substance Use Topics Alcohol use: Yes Alcohol/week: 0.0 standard drinks of alcohol Comment: occasionally Drug use: No Review of Systems Constitutional: Negative for chills, fatigue and fever. HENT: Negative for congestion and sore throat. Eyes: Negative for pain, discharge and itching. Respiratory: Negative for apnea, cough, choking and chest tightness. Cardiovascular: Negative for chest pain, palpitations and leg swelling. Gastrointestinal: Negative for abdominal pain, nausea and vomiting. Genitourinary: Negative for vaginal bleeding and vaginal discharge. +vaginal pain My cervix is swollen Musculoskeletal: Negative for arthralgias, joint swelling, myalgias and neck pain. Skin: Negative for color change, pallor and rash. Allergic/Immunologic: Negative for environmental allergies, food allergies and immunocompromised state. Neurological: Negative for vertigo, weakness, numbness and headaches. Hematological: Negative for adenopathy. Does not bruise/bleed easily. Psychiatric/Behavioral: Negative for agitation and behavioral problems. Objective BP 119/84 Pulse 70 Temp 36.9 C (98.5 F) Resp 21 Wt 68.6 kg (151 lb 3.2 oz) LMP 03/10/2023 (Exact Date) SpO2 99% BMI 30.54 kg/m Physical Exam Vitals and nursing note reviewed. Exam conducted with a milliner helper present. Constitutional: General: She is not in acute distress. Appearance: Normal appearance. She is normal weight. She is not ill-appearing, toxic-appearing or diaphoretic. HENT: Head: Normocephalic and atraumatic. Right Ear: Ear canal and external ear normal. Left Ear: Ear canal and external ear normal. Nose: Nose normal. No congestion or rhinorrhea. Mouth/Throat: Mouth: Mucous membranes are moist. Pharynx: No oropharyngeal exudate or posterior oropharyngeal erythema. Eyes: General: Right eye: No discharge. Left eye: No discharge. Extraocular Movements: Extraocular movements intact. Conjunctiva/sclera: Conjunctivae normal. Pupils: Pupils are equal, round, and reactive to light. Cardiovascular: Rate and Rhythm: Normal rate and regular rhythm. Pulses: Normal pulses. Heart sounds: Normal heart sounds. No murmur heard. No friction rub. Pulmonary: Effort: Pulmonary effort is normal. No respiratory distress. Breath sounds: Normal breath sounds. No stridor. No wheezing, rhonchi or rales. Chest: Chest wall: No tenderness. Abdominal: General: Abdomen is flat. There is no distension. Palpations: Abdomen is soft. There is no mass. Tenderness: There is no abdominal tenderness. There is no right CVA tenderness, left CVA tenderness, guarding or rebound. Hernia: No hernia is present. Genitourinary: Exam position: Lithotomy position. Vagina: Vaginal discharge and erythema present. Comments: Erythema noted. +thin white discharge noted. Musculoskeletal: General: No swelling, tenderness, deformity or signs of injury. Normal range of motion. Cervical back: Normal range of motion and neck supple. No rigidity. Right lower leg: No edema. Left lower leg: No edema. Lymphadenopathy: Cervical: No cervical adenopathy. Skin: General: Skin is warm and dry. Coloration: Skin is not jaundiced or pale. Findings: No bruising, erythema, lesion or rash. Neurological: General: No focal deficit present. Mental Status: She is alert and oriented to person, place, and time. Cranial Nerves: No cranial nerve deficit. Sensory: No sensory deficit. Motor: No weakness. Coordination: Coordination normal. Gait: Gait normal. Psychiatric: Mood and Affect: Mood normal. Behavior: Behavior normal. Thought Content: Thought content normal. Judgment: Judgment normal. Assessment and Plan ASSESSMENT/PLAN: 1. Pelvic pain - ICD9: [id number], ICD10: R10.2 Etiology unclear Differential Diagnosis includes STI, Ovarian cyst, and Cystitis Urine dip negative. - Labs of GC/Chlamydia, BVAMP, CVTV pending - Follow up with [facility] for further work up. Abstain from sex. OTC analgesics - Treatment deferred for vaginal discharge until results return, if positive please treat as indicated. Shu Hackett APRN.MARY documented in this encounter [facility] 05-21-2023 Miscellaneous Notes Please file order for bilateral diagnostic mammogram per protocol for 32 yr old and no prior mammograms. Thank you. documented in this encounter [facility] 05-13-2023 Note HNO ID: [id number] Author: Edwige Goldsmith APRN.CNP Service: ? Author Type: Nurse Practitioner Type: Progress Notes Filed: 05/13/2023 4:39 PM Note Text: SUBJECTIVE Jyoti Aranda is a 32 year old female here today for a check up on her medical problems. Chief Complaint Patient presents with: Medication Follow-up HPI Jyoti Aranda is a 32 year old female established patient of Dr. Rock who presents today for follow up. She states today that she is feeling better anxiety zuñiga. But now she notes feeling unmotivated. Fewer panic attacks. Falling asleep easier. On Wellbutrin before. Wondering if that might help. Overall just feeling tired, fatigued, low energy. Also she notes having pain to the left breast. Pain is constant but worse with palpation. At times still has a white discharge since having breast fed. No prior imaging. She does consume caffeine. Her medications were reviewed today and her list is now up to date. Medications Current Outpatient Medications Medication Sig multivit,calc,mins/iron/folic (ONE-A-DAY WOMENS FORMULA ORAL) Take by mouth. buPROPion XL (WELLBUTRIN XL) 150 mg 24 hr tablet Take 1 tablet by mouth once daily. sertraline (ZOLOFT) 25 mg tablet Take 1 tablet by mouth once daily. Okay to start with a half a pill daily for the first week then increase to 1 full tab daily No current facility-administered medications for this visit. ALLERGIES No Known Allergies ACTIVE PROBLEM LIST Attention Deficit - 10/31/2021 Anxiety and Depression - 05/24/2021 Situational Depression - 05/24/2021 Panic Attacks - 05/24/2021 Back Ache - 11/22/2014 Rhinitis - 11/02/2014 Eustachian Tube Dysfunction - 11/02/2014 Social History Tobacco Use Smoking status: Former Packs/day: 0.50 Years: 5.00 Total pack years: 2.50 Types: Cigarettes Smokeless tobacco: Never Tobacco comments: vape Vaping Use Vaping Use: Former Substance Use Topics Alcohol use: Yes Alcohol/week: 0.0 standard drinks of alcohol Comment: occasionally Drug use: No Review of Systems Respiratory: Negative. Cardiovascular: Negative. OBJECTIVE BP 102/66 Wt 152 lb (68.9kg) LMP 03/10/2023 Physical Exam Vitals and nursing note reviewed. Constitutional: General: She is awake. She is not in acute distress. Appearance: Normal appearance. She is well-developed and well-groomed. She is not ill-appearing, toxic-appearing or diaphoretic. HENT: Head: Normocephalic. Right Ear: External ear normal. Left Ear: External ear normal. Nose: Nose normal. Eyes: General: Vision grossly intact. Conjunctiva/sclera: Conjunctivae normal. Pupils: Pupils are equal, round, and reactive to light. Neck: Vascular: No JVD. Trachea: Trachea normal. Cardiovascular: Rate and Rhythm: Normal rate and regular rhythm. Pulses: Normal pulses. Heart sounds: Normal heart sounds. No murmur heard. Pulmonary: Effort: Pulmonary effort is normal. No accessory muscle usage, prolonged expiration or respiratory distress. Breath sounds: Normal breath sounds. Chest: Breasts: Left: Mass and tenderness present. No swelling, bleeding, inverted nipple, nipple discharge or skin change. Comments: Palpable smooth, oval mass to the deep tissue of the left breast at 3 o'clock position. Musculoskeletal: Cervical back: Neck supple. Skin: General: Skin is warm and dry. Capillary Refill: Capillary refill takes less than 2 seconds. Neurological: General: No focal deficit present. Mental Status: She is alert and oriented to person, place, and time. Mental status is at baseline. Psychiatric: Attention and Perception: Attention and perception normal. Mood and Affect: Mood and affect normal. Speech: Speech normal. Behavior: Behavior normal. Behavior is cooperative. Thought Content: Thought content normal. Cognition and Memory: Cognition and memory normal. Judgment: Judgment normal. ASSESSMENT/PLAN: 1. Breast pain - ICD9: 611.71, ICD10: N64.4 (primary diagnosis) Check ultrasound and given her age diagnostic mammogram. - US BREAST LTD LEFT - [facility] LEFT 2. Anxiety - ICD9: 300.00, ICD10: F41.9 Add Wellbutrin, continue Zoloft. Check labs for any contributing metabolic issues. - BUPROPION XL 150 MG TAB - CBC + DIFF - COMP METABOLIC PANEL - TSH BLD 3. Panic attacks - ICD9: 300.01, ICD10: F41.0 See #2 - BUPROPION XL 150 MG TAB - CBC + DIFF - COMP METABOLIC PANEL - TSH BLD 4. Other fatigue - ICD9: 780.79, ICD10: R53.83 See #2 - CBC + DIFF - COMP METABOLIC PANEL - TSH BLD - VITAMIN B12 BLOOD 5. Vitamin D deficiency - ICD9: 268.9, ICD10: E55.9 - VITAMIN D 25 HYDROXY 6. Encounter for therapeutic drug monitoring - ICD9: V58.83, ICD10: Z51.81 - CBC + DIFF - COMP METABOLIC PANEL Portions of this note have been entered by ancillary staff. I have reviewed and when necessary edited, so that they are an adequate record of my encounter with t (more content not included)... [facility] 05-13-2023 History of Present illness Narrative SUBJECTIVE Jyoti Aranda is a 32 year old female here today for a check up on her medical problems. Chief Complaint Patient presents with: Medication Follow-up HPI Jyoti Aranda is a 32 year old female established patient of Dr. Rock who presents today for follow up. She states today that she is feeling better anxiety zuñiga. But now she notes feeling unmotivated. Fewer panic attacks. Falling asleep easier. On Wellbutrin before. Wondering if that might help. Overall just feeling tired, fatigued, low energy. Also she notes having pain to the left breast. Pain is constant but worse with palpation. At times still has a white discharge since having breast fed. No prior imaging. She does consume caffeine. Her medications were reviewed today and her list is now up to date. Medications Current Outpatient Medications Medication Sig multivit,calc,mins/iron/folic (ONE-A-DAY WOMENS FORMULA ORAL) Take by mouth. buPROPion XL (WELLBUTRIN XL) 150 mg 24 hr tablet Take 1 tablet by mouth once daily. sertraline (ZOLOFT) 25 mg tablet Take 1 tablet by mouth once daily. Okay to start with a half a pill daily for the first week then increase to 1 full tab daily No current facility-administered medications for this visit. ALLERGIES No Known Allergies ACTIVE PROBLEM LIST Attention Deficit - 10/31/2021 Anxiety and Depression - 05/24/2021 Situational Depression - 05/24/2021 Panic Attacks - 05/24/2021 Back Ache - 11/22/2014 Rhinitis - 11/02/2014 Eustachian Tube Dysfunction - 11/02/2014 Social History Tobacco Use Smoking status: Former Packs/day: 0.50 Years: 5.00 Total pack years: 2.50 Types: Cigarettes Smokeless tobacco: Never Tobacco comments: vape Vaping Use Vaping Use: Former Substance Use Topics Alcohol use: Yes Alcohol/week: 0.0 standard drinks of alcohol Comment: occasionally Drug use: No Review of Systems Respiratory: Negative. Cardiovascular: Negative. OBJECTIVE BP 102/66 Wt 152 lb (68.9kg) LMP 03/10/2023 Physical Exam Vitals and nursing note reviewed. Constitutional: General: She is awake. She is not in acute distress. Appearance: Normal appearance. She is well-developed and well-groomed. She is not ill-appearing, toxic-appearing or diaphoretic. HENT: Head: Normocephalic. Right Ear: External ear normal. Left Ear: External ear normal. Nose: Nose normal. Eyes: General: Vision grossly intact. Conjunctiva/sclera: Conjunctivae normal. Pupils: Pupils are equal, round, and reactive to light. Neck: Vascular: No JVD. Trachea: Trachea normal. Cardiovascular: Rate and Rhythm: Normal rate and regular rhythm. Pulses: Normal pulses. Heart sounds: Normal heart sounds. No murmur heard. Pulmonary: Effort: Pulmonary effort is normal. No accessory muscle usage, prolonged expiration or respiratory distress. Breath sounds: Normal breath sounds. Chest: Breasts: Left: Mass and tenderness present. No swelling, bleeding, inverted nipple, nipple discharge or skin change. Comments: Palpable smooth, oval mass to the deep tissue of the left breast at 3 o'clock position. Musculoskeletal: Cervical back: Neck supple. Skin: General: Skin is warm and dry. Capillary Refill: Capillary refill takes less than 2 seconds. Neurological: General: No focal deficit present. Mental Status: She is alert and oriented to person, place, and time. Mental status is at baseline. Psychiatric: Attention and Perception: Attention and perception normal. Mood and Affect: Mood and affect normal. Speech: Speech normal. Behavior: Behavior normal. Behavior is cooperative. Thought Content: Thought content normal. Cognition and Memory: Cognition and memory normal. Judgment: Judgment normal. ASSESSMENT/PLAN: 1. Breast pain - ICD9: 611.71, ICD10: N64.4 (primary diagnosis) Check ultrasound and given her age diagnostic mammogram. - US BREAST LTD LEFT - [facility] LEFT 2. Anxiety - ICD9: 300.00, ICD10: F41.9 Add Wellbutrin, continue Zoloft. Check labs for any contributing metabolic issues. - BUPROPION XL 150 MG TAB - CBC + DIFF - COMP METABOLIC PANEL - TSH BLD 3. Panic attacks - ICD9: 300.01, ICD10: F41.0 See #2 - BUPROPION XL 150 MG TAB - CBC + DIFF - COMP METABOLIC PANEL - TSH BLD 4. Other fatigue - ICD9: 780.79, ICD10: R53.83 See #2 - CBC + DIFF - COMP METABOLIC PANEL - TSH BLD - VITAMIN B12 BLOOD 5. Vitamin D deficiency - ICD9: 268.9, ICD10: E55.9 - VITAMIN D 25 HYDROXY 6. Encounter for therapeutic drug monitoring - ICD9: V58.83, ICD10: Z51.81 - CBC + DIFF - COMP METABOLIC PANEL Portions of this note have been entered by ancillary staff. I have reviewed and when necessary edited, so that they are an adequate record of my encounter with this patient Please note that parts of this document were created using voice recognition software and therefore may contain grammatical errors. Patient verbalizes understanding of instructions from today's visit and in agreement with treatment plan. Questions answered. Agrees to call the office if questions, concerns of issues with acute symptoms not improving or if they worsen. See diagnoses and orders for additional plan(s). Allergies and medications were reviewed, list was updated, and refills given if needed. Past medical, surgical, social, and family history reviewed and updated as appropriate. Encouraged proper diet & exercise as well as compliance with taking medications. Age-appropriate health preventative measures were discussed. Return in about 4 weeks (around 06/10/2023) for recheck on new medication.. Edwige Goldsmith APRN-MARY documented in this encounter [facility] 04-02-2023 Note HNO ID: [id number] Author: Edwige Goldsmith APRN.CNP Service: ? Author Type: Nurse Practitioner Type: Progress Notes Filed: 04/02/2023 4:23 PM Note Text: SUBJECTIVE Jyoti Aranda is a 32 year old female here today for a check up on her medical problems. Chief Complaint Patient presents with: Follow Up HPI Jyoti Aranda is a 32 year old female established patient of Kishor Rock MD who presents today for follow up on anxiety. She was seen 2 weeks ago 03/18 and discussed concerns of not sleeping well, panic attacks. Still having panic attacks. Current medications include buspar, feels like this helped some but made her tired, helped with sleep. Has not scheduled counseling yet. Took old pills of lorazepam that she had due to still having periods of anxiety. Previously was on Lexapro. Interested in trying other options. Her medications were reviewed today and her list is now up to date. Medications Current Outpatient Medications Medication Sig LORazepam (ATIVAN) 0.5 mg Take by mouth three times daily as needed. sertraline (ZOLOFT) 25 mg tablet Take 1 tablet by mouth once daily. Okay to start with a half a pill daily for the first week then increase to 1 full tab daily busPIRone (BUSPAR) 10 mg tablet Take 0.5-1 tablets by mouth three times daily as needed. multivit,calc,mins/iron/folic (ONE-A-DAY WOMENS FORMULA ORAL) Take by mouth. No current facility-administered medications for this visit. ALLERGIES No Known Allergies ACTIVE PROBLEM LIST Attention Deficit - 10/31/2021 Anxiety and Depression - 05/24/2021 Situational Depression - 05/24/2021 Panic Attacks - 05/24/2021 Back Ache - 11/22/2014 Rhinitis - 11/02/2014 Eustachian Tube Dysfunction - 11/02/2014 Social History Tobacco Use Smoking status: Former Packs/day: 0.50 Years: 5.00 Pack years: 2.50 Types: Cigarettes Smokeless tobacco: Never Tobacco comments: vape Vaping Use Vaping Use: Former Substance Use Topics Alcohol use: Yes Alcohol/week: 0.0 standard drinks Comment: occasionally Drug use: No Review of Systems Psychiatric/Behavioral: Positive for sleep disturbance. Negative for self-injury and suicidal ideas. The patient is nervous/anxious. OBJECTIVE BP 98/68 Pulse 81 Wt 154 lb 11.2 oz (70.2kg) SpO2 98% LMP 03/10/2023 Physical Exam Vitals and nursing note reviewed. Constitutional: General: She is awake. She is not in acute distress. Appearance: Normal appearance. She is well-developed and well-groomed. She is not ill-appearing, toxic-appearing or diaphoretic. HENT: Head: Normocephalic. Right Ear: Hearing, tympanic membrane, ear canal and external ear normal. Left Ear: Hearing, tympanic membrane, ear canal and external ear normal. Nose: Nose normal. Eyes: General: Vision grossly intact. Conjunctiva/sclera: Conjunctivae normal. Pupils: Pupils are equal, round, and reactive to light. Neck: Vascular: No JVD. Trachea: Trachea normal. Pulmonary: Effort: Pulmonary effort is normal. No accessory muscle usage, prolonged expiration or respiratory distress. Musculoskeletal: Cervical back: Neck supple. Skin: General: Skin is warm and dry. Capillary Refill: Capillary refill takes less than 2 seconds. Neurological: General: No focal deficit present. Mental Status: She is alert and oriented to person, place, and time. Mental status is at baseline. Psychiatric: Attention and Perception: Attention and perception normal. Mood and Affect: Mood and affect normal. Speech: Speech normal. Behavior: Behavior normal. Behavior is cooperative. Thought Content: Thought content normal. Cognition and Memory: Cognition and memory normal. Judgment: Judgment normal. ASSESSMENT/PLAN: 1. Panic attack - ICD9: 300.01, ICD10: F41.0 Can continue on Buspar, add Zoloft. Encouraged counseling. - SERTRALINE 25 MG TABLET Portions of this note have been entered by ancillary staff. I have reviewed and when necessary edited, so that they are an adequate record of my encounter with this patient Please note that parts of this document were created using voice recognition software and therefore may contain grammatical errors. Patient verbalizes understanding of instructions from today's visit and in agreement with treatment plan. Questions answered. Agrees to call the office if questions, concerns of issues with acute symptoms not improving or if they worsen. See diagnoses and orders for additional plan(s). Allergies and medications were reviewed, list was updated, and refills given if needed. Past medical, surgical, social, and family history reviewed and updated as appropriate. Encouraged proper diet AND exercise as well as compliance with taking medications. Age-appropriate health preventative measures were discussed. Return in about 5 weeks (around 05/07/2023) for recheck on new medication.. Edwige Goldsmith APRN-MARY [facility] 04-02-2023 History of Present illness Narrative SUBJECTIVE Jyoti Aranda is a 32 year old female here today for a check up on her medical problems. Chief Complaint Patient presents with: Follow Up HPI Jyoti Aranda is a 32 year old female established patient of Kishor Rock MD who presents today for follow up on anxiety. She was seen 2 weeks ago 03/18 and discussed concerns of not sleeping well, panic attacks. Still having panic attacks. Current medications include buspar, feels like this helped some but made her tired, helped with sleep. Has not scheduled counseling yet. Took old pills of lorazepam that she had due to still having periods of anxiety. Previously was on Lexapro. Interested in trying other options. Her medications were reviewed today and her list is now up to date. Medications Current Outpatient Medications Medication Sig LORazepam (ATIVAN) 0.5 mg Take by mouth three times daily as needed. sertraline (ZOLOFT) 25 mg tablet Take 1 tablet by mouth once daily. Okay to start with a half a pill daily for the first week then increase to 1 full tab daily busPIRone (BUSPAR) 10 mg tablet Take 0.5-1 tablets by mouth three times daily as needed. multivit,calc,mins/iron/folic (ONE-A-DAY WOMENS FORMULA ORAL) Take by mouth. No current facility-administered medications for this visit. ALLERGIES No Known Allergies ACTIVE PROBLEM LIST Attention Deficit - 10/31/2021 Anxiety and Depression - 05/24/2021 Situational Depression - 05/24/2021 Panic Attacks - 05/24/2021 Back Ache - 11/22/2014 Rhinitis - 11/02/2014 Eustachian Tube Dysfunction - 11/02/2014 Social History Tobacco Use Smoking status: Former Packs/day: 0.50 Years: 5.00 Pack years: 2.50 Types: Cigarettes Smokeless tobacco: Never Tobacco comments: vape Vaping Use Vaping Use: Former Substance Use Topics Alcohol use: Yes Alcohol/week: 0.0 standard drinks Comment: occasionally Drug use: No Review of Systems Psychiatric/Behavioral: Positive for sleep disturbance. Negative for self-injury and suicidal ideas. The patient is nervous/anxious. OBJECTIVE BP 98/68 Pulse 81 Wt 154 lb 11.2 oz (70.2kg) SpO2 98% LMP 03/10/2023 Physical Exam Vitals and nursing note reviewed. Constitutional: General: She is awake. She is not in acute distress. Appearance: Normal appearance. She is well-developed and well-groomed. She is not ill-appearing, toxic-appearing or diaphoretic. HENT: Head: Normocephalic. Right Ear: Hearing, tympanic membrane, ear canal and external ear normal. Left Ear: Hearing, tympanic membrane, ear canal and external ear normal. Nose: Nose normal. Eyes: General: Vision grossly intact. Conjunctiva/sclera: Conjunctivae normal. Pupils: Pupils are equal, round, and reactive to light. Neck: Vascular: No JVD. Trachea: Trachea normal. Pulmonary: Effort: Pulmonary effort is normal. No accessory muscle usage, prolonged expiration or respiratory distress. Musculoskeletal: Cervical back: Neck supple. Skin: General: Skin is warm and dry. Capillary Refill: Capillary refill takes less than 2 seconds. Neurological: General: No focal deficit present. Mental Status: She is alert and oriented to person, place, and time. Mental status is at baseline. Psychiatric: Attention and Perception: Attention and perception normal. Mood and Affect: Mood and affect normal. Speech: Speech normal. Behavior: Behavior normal. Behavior is cooperative. Thought Content: Thought content normal. Cognition and Memory: Cognition and memory normal. Judgment: Judgment normal. ASSESSMENT/PLAN: 1. Panic attack - ICD9: 300.01, ICD10: F41.0 Can continue on Buspar, add Zoloft. Encouraged counseling. - SERTRALINE 25 MG TABLET Portions of this note have been entered by ancillary staff. I have reviewed and when necessary edited, so that they are an adequate record of my encounter with this patient Please note that parts of this document were created using voice recognition software and therefore may contain grammatical errors. Patient verbalizes understanding of instructions from today's visit and in agreement with treatment plan. Questions answered. Agrees to call the office if questions, concerns of issues with acute symptoms not improving or if they worsen. See diagnoses and orders for additional plan(s). Allergies and medications were reviewed, list was updated, and refills given if needed. Past medical, surgical, social, and family history reviewed and updated as appropriate. Encouraged proper diet & exercise as well as compliance with taking medications. Age-appropriate health preventative measures were discussed. Return in about 5 weeks (around 05/07/2023) for recheck on new medication.. Edwige Goldsmith APRN-MARY documented in this encounter [facility] 03-18-2023 Note HNO ID: [id number] Author: Edwige Goldsmith APRN.CNP Service: ? Author Type: Nurse Practitioner Type: Progress Notes Filed: 03/18/2023 4:25 PM Note Text: SUBJECTIVE Jyoti Aranda is a 32 year old female here today for acute concern. Chief Complaint Patient presents with: Anxiety: had taken SSRI and such in the past but had stopped all medications because she was feeling well. Just very anxious in the last couple of weeks has been a struggle. In the last week she has been having continued palpitations described it as fluttering and pounding and chest tightness HPI Jyoti Aranda is a 32 year old female established patient of Dr. Rock who presents today acutely for concerns of issues with anxiety. Onset originally years ago. Last month worse, some financial concerns and other stress with family. Quit smoking and vaping so usually would fall back on that. Having a few panic attacks. Had prior RX of Ativan and took this, helped some but does not want to continue on that medication. Previously on Lexapro but really prefers to not take a medication she needs [facility]. Some palpitations and chest pains with the anxiety attacks. Working over time. Not sleeping as much as previously. Trouble with getting mind to shut off. Waking up 10 times a night. Not depressed. Considered counseling in the past. Feels like she does not have the time. Her medications were reviewed today and her list is now up to date. Medications Current Outpatient Medications Medication Sig multivit,calc,mins/iron/folic (ONE-A-DAY WOMENS FORMULA ORAL) Take by mouth. busPIRone (BUSPAR) 10 mg tablet Take 0.5-1 tablets by mouth three times daily as needed. No current facility-administered medications for this visit. ALLERGIES No Known Allergies ACTIVE PROBLEM LIST Attention Deficit - 10/31/2021 Anxiety and Depression - 05/24/2021 Situational Depression - 05/24/2021 Panic Attacks - 05/24/2021 Back Ache - 11/22/2014 Rhinitis - 11/02/2014 Eustachian Tube Dysfunction - 11/02/2014 Social History Tobacco Use Smoking status: Former Packs/day: 0.50 Years: 5.00 Pack years: 2.50 Types: Cigarettes Smokeless tobacco: Never Tobacco comments: vape Vaping Use Vaping Use: Former Substance Use Topics Alcohol use: Yes Alcohol/week: 0.0 standard drinks Comment: occasionally Drug use: No Review of Systems Psychiatric/Behavioral: Positive for sleep disturbance. Negative for dysphoric mood, hallucinations, self-injury and suicidal ideas. The patient is nervous/anxious. OBJECTIVE BP 120/70 Pulse 84 Wt 155 lb (70.3kg) SpO2 98% LMP 03/10/2023 Physical Exam Vitals and nursing note reviewed. Constitutional: General: She is awake. She is not in acute distress. Appearance: Normal appearance. She is well-developed and well-groomed. She is not ill-appearing, toxic-appearing or diaphoretic. HENT: Head: Normocephalic. Right Ear: External ear normal. Left Ear: External ear normal. Nose: Nose normal. Eyes: General: Vision grossly intact. Conjunctiva/sclera: Conjunctivae normal. Pupils: Pupils are equal, round, and reactive to light. Neck: Vascular: No JVD. Trachea: Trachea normal. Cardiovascular: Rate and Rhythm: Normal rate and regular rhythm. Pulses: Normal pulses. Heart sounds: Normal heart sounds. No murmur heard. Pulmonary: Effort: Pulmonary effort is normal. No accessory muscle usage, prolonged expiration or respiratory distress. Breath sounds: Normal breath sounds. Musculoskeletal: Cervical back: Neck supple. Skin: General: Skin is warm and dry. Capillary Refill: Capillary refill takes less than 2 seconds. Neurological: General: No focal deficit present. Mental Status: She is alert and oriented to person, place, and time. Mental status is at baseline. Psychiatric: Attention and Perception: Attention and perception normal. She does not perceive auditory or visual hallucinations. Mood and Affect: Affect normal. Mood is anxious. Speech: Speech is rapid and pressured. Behavior: Behavior normal. Behavior is cooperative. Thought Content: Thought content normal. Thought content is not paranoid. Cognition and Memory: Cognition and memory normal. Judgment: Judgment normal. ASSESSMENT/PLAN: 1. Anxiety - ICD9: 300.00, ICD10: F41.9 (primary diagnosis) Worsening anxiety with panic attacks. Encouraged and discussed healthy coping mechanisms. Given information on counseling options, can look at virtual versus in person and cost assistance. Homework before 2 week follow up is to pick a counseling place, bonus is to have an appointment scheduled! Will start buspar. Discussed new medication including but not limited to reason for use, possible side effects, administration, signs and symptoms to monitor for and when to seek medical attention. - BUSPIRONE 10 MG TABLET 2. Panic attacks - ICD9: 300.01, ICD10: F41.0 Associated chest p (more content not included)... [facility] 01-25-2023 Note HNO ID: [id number] Author: Kishor Rock MD Service: ? Author Type: Physician Type: Progress Notes Filed: 01/25/2023 1:22 PM Note Text: Patient was not see today [facility] 01-25-2023 History of Present illness Narrative Patient was not see today documented in this encounter [facility] 01-22-2023 Miscellaneous Notes Patient was just seen in the urgent care for abdominal pain. Ultrasound was done which did not show any gallbladder stones and no pathology in the upper quadrant was identified. She also had lipase levels done. Awaiting CBC and BMP. She is still in significant pain. Today we are giving her a trial of Protonix and Bentyl to see if she improves with the pain. Awaiting results and to ER if she does not feel well tonight. Regards, Kishor Rock MD documented in this encounter [facility] 01-22-2023 Miscellaneous Notes Pt was notified of the results. Pt verbalized understanding. Jen Dickey MA Please call and let patient know her ultrasound was normal as well as her labs. Recommend follow-up with Dr. Feldman. If having severe abdominal pain, fever, vomiting or other worsening symptoms to be seen in the emergency department. documented in this encounter [facility] 01-22-2023 Note HNO ID: [id number] Author: Hai Chavira PA-C Service: ? Author Type: Physician Kiss 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 Type: Progress Notes Filed: 01/22/2023 8:50 AM Note Text: This note was created using [employer]. Subjective Jyoti Aranda is a 32 year old female. HPI Presents with epigastric and right upper quadrant abdominal pain off and on for 3 days. She states that sharp pain that 6 or 7 out of 10. Is been coming and going. States it is worse with food. She has had some nausea. No vomiting or diarrhea. No fever. Pain radiates into her back. Denies problems with her gallbladder previously. Does have a history of GERD. Does not feel similar to that pain. No OTC meds used. No urinary complaints. Denies chance of . Review of Systems HENT: Negative. Respiratory: Negative. Cardiovascular: Negative. Gastrointestinal: Positive for abdominal pain and nausea. Negative for constipation, diarrhea and vomiting. Genitourinary: Negative. Musculoskeletal: Positive for back pain. Skin: Negative. Hematological: Negative. Psychiatric/Behavioral: Negative. All other systems reviewed and are negative. PAST MEDICAL HISTORY Diagnosis Date Back pain Overweight (BMI 25.0-29.9) 11/22/2014 Current Outpatient Medications Medication Sig Dispense Refill multivit,calc,mins/iron/folic (ONE-A-DAY WOMENS FORMULA ORAL) Take by mouth. escitalopram oxalate (LEXAPRO) 10 mg tablet Take 1 tablet by mouth once daily. (Patient not taking: Reported on 09/09/2022) 30 tablet 5 buPROPion (WELLBUTRIN) 75 mg tablet Take 1 tablet by mouth once daily. (Patient not taking: Reported on 11/01/2022) 30 tablet 5 No current facility-administered medications for this visit. No past surgical history on file. FAMILY HISTORY Problem Relation Age of Onset Asthma Mother Cataract Mother Cataract Maternal Grandmother Cataract Maternal Grandfather other (Heart, brain mass) Maternal Grandfather Breast Cancer Other great grandmother-p Cataract Paternal Grandmother Cataract Paternal Grandfather Social History Tobacco Use Smoking status: Former Packs/day: 0.50 Years: 5.00 Pack years: 2.50 Types: Cigarettes Smokeless tobacco: Current Tobacco comments: vape Vaping Use Vaping Use: Never used Substance Use Topics Alcohol use: Yes Alcohol/week: 0.0 standard drinks Comment: occasionally Drug use: No Objective BP 124/82 Pulse 77 Temp 36.8 ?C (98.3 ?F) Resp 18 Wt 71.8 kg (158 lb 3.2 oz) LMP 10/07/2022 SpO2 98% BMI 31.94 kg/m? Physical Exam Vitals reviewed. Constitutional: Appearance: Normal appearance. HENT: Head: Normocephalic and atraumatic. Cardiovascular: Rate and Rhythm: Normal rate and regular rhythm. Heart sounds: Normal heart sounds. Pulmonary: Effort: Pulmonary effort is normal. Breath sounds: Normal breath sounds. Abdominal: General: Abdomen is flat. Palpations: Abdomen is soft. Comments: Abdomen benign. No tenderness on palpation. Soft and nondistended. Skin: General: Skin is warm and dry. Neurological: Mental Status: She is alert. Assessment and Plan ASSESSMENT/PLAN: 1. RUQ pain - ICD9: 789.01, ICD10: R10.11 Labs and ultrasound ordered. Will call on results. Discussed red flags to be seen in the ER. Patient agreeable with plan. - CBC + DIFF - COMP METABOLIC PANEL - LIPASE BLD - US ABD RIGHT UPPER QUADRANT Hai Chavira PA-C [facility] 11-01-2022 History of Present illness Narrative Subjective HPI Nontoxic or female presents urgent care chief plaint chest pain. Duration of symptoms 2 days. Associated symptoms chest pain radiating to her back. States this feels like her acid reflux however this is more severe. Has been using OTC medications this is helped. Has noticed increased heart palpitations as well. Additionally patient does desire test for her irregular menstrual periods. .Patient presents with: Pain: Pt reported pain between shoulder blades rated 4, irregular menses bilateral breast pain. PAST MEDICAL HISTORY Diagnosis Date Back pain Overweight (BMI 25.0-29.9) 11/22/2014 No past surgical history on file. ALLERGIES Patient has no known allergies. MEDICATIONS multivit,calc,mins/iron/folic (ONE-A-DAY WOMENS FORMULA ORAL) Take by mouth. escitalopram oxalate (LEXAPRO) 10 mg tablet Take 1 tablet by mouth once daily. (Patient not taking: Reported on 09/09/2022) buPROPion (WELLBUTRIN) 75 mg tablet Take 1 tablet by mouth once daily. (Patient not taking: Reported on 11/01/2022) FAMILY HISTORY Problem Relation Age of Onset Asthma Mother Cataract Mother Cataract Maternal Grandmother Cataract Maternal Grandfather other (Heart, brain mass) Maternal Grandfather Breast Cancer Other great grandmother-p Cataract Paternal Grandmother Cataract Paternal Grandfather Social History Tobacco Use Smoking status: Former Packs/day: 0.50 Years: 5.00 Pack years: 2.50 Types: Cigarettes Smokeless tobacco: Current Tobacco comments: vape Vaping Use Vaping Use: Never used Substance Use Topics Alcohol use: Yes Alcohol/week: 0.0 standard drinks Comment: occasionally Drug use: No BP 126/72 Pulse 88 Temp 36.8 C (98.2 F) (Tympanic) Resp 16 Wt 72 kg (158 lb 12.8 oz) LMP 10/07/2022 SpO2 97% BMI 32.06 kg/m Review of Systems Constitutional: Negative for chills, fever and malaise/fatigue. HENT: Negative for congestion, ear discharge, ear pain, sinus pain and sore throat. Eyes: Negative for blurred vision, pain, discharge and redness. Respiratory: Negative for cough, hemoptysis, sputum production, shortness of breath, wheezing and stridor. Cardiovascular: Positive for chest pain and palpitations. Gastrointestinal: Negative for abdominal pain, diarrhea, nausea and vomiting. Musculoskeletal: Negative for myalgias. Skin: Negative for itching and rash. Neurological: Negative for dizziness and headaches. Objective Physical Exam Constitutional: General: She is not in acute distress. Appearance: She is not diaphoretic. HENT: Head: Normocephalic. Mouth/Throat: Mouth: Mucous membranes are moist. Pharynx: Oropharynx is clear. No oropharyngeal exudate or posterior oropharyngeal erythema. Eyes: Conjunctiva/sclera: Conjunctivae normal. Pupils: Pupils are equal, round, and reactive to light. Cardiovascular: Rate and Rhythm: Normal rate and regular rhythm. Heart sounds: Normal heart sounds. Pulmonary: Effort: Pulmonary effort is normal. No tachypnea, accessory muscle usage or respiratory distress. Breath sounds: Normal breath sounds. No stridor. No wheezing, rhonchi or rales. Abdominal: Palpations: Abdomen is soft. Tenderness: There is no abdominal tenderness. Musculoskeletal: Cervical back: Normal range of motion and neck supple. No rigidity or tenderness. Lymphadenopathy: Cervical: No cervical adenopathy. Skin: General: Skin is warm and dry. Neurological: Mental Status: She is alert and oriented to person, place, and time. ASSESSMENT/PLAN: 1. Irregular menses - ICD9: 626.4, ICD10: N92.6 (primary diagnosis) - HCG QUAL UR B/O 2. Chest pain, unspecified type - ICD9: 786.50, ICD10: R07.9 test negative. Increasing midsternal chest pain radiating into the back. Antacids and Pepcid are not helping. Patient is having increased heart palpitations. Recommend to be seen the ED to rule out cardiac etiology. Patient verbalized understand agrees with plan of care. Anthony Patterson APRN.MARY documented in this encounter [facility] 09-18-2022 History of Present illness Narrative Chief Complaint Patient presents with: Recheck: 3 month follow up HPI Jyoti Aranda is a 32 year old female who presents here today for anxiety and depression follow-up. Patient was seen 3 months ago and was on lexapro and wellbutrin without change. Since visit patient has weaned herself off of both of these medications., Has been off of these medications for 3 weeks. Patient reports significant improvement in depression, anxiety, and mood. States she feels the best she has in a very long time. Persistent/bothersome symptoms include: none Denies any symptoms of SCAR Denies suicidal thoughts or plan. Became dizzy after stopping the lexapro which seems to be less severe but is still there. States she gets a drunk feeling. This occurred previously when she ran out of the lexapro for a while. States with the dizziness she feels off balance at times. It is worsened with turning her head and always occurs when she stands up from a squatting position. Has also had an upper respiratory infection earlier this month. Has also had headaches since stopping the lexapro which was typical last time she did not take it and they are also slightly improving. States she has other symptoms which she has had for years which include the dizziness with standing from a squatting position and arms and legs easily go numb and tingly with bending of elbows or being in a seated position. REVIEW OF SYSTEMS General: no fevers, no chills, no night sweats, no recurrent infections, no change in appetite, no change in energy, and no significant changes in weight HEENT: no changes in hearing, no visual changes, no nose bleeds, no sinus or nasal problems Respiratory: no cough, no wheezing, no shortness of breath, no hemoptysis Cardiovascular: no chest pain, no chest pressure, and no swelling GI: No nausea, vomiting, or diarrhea Endocrine: no fatigue, no weight gain, no weight loss, no cold intolerance, no heat intolerance, no polyuria, no polyphagia, and no polydipsia Neurologic: No weakness, numbness, tingling, memory loss, syncope. PAST MEDICAL HISTORY Diagnosis Date Back pain Overweight (BMI 25.0-29.9) 11/22/2014 No past surgical history on file. ALLERGIES Patient has no known allergies. MEDICATIONS escitalopram oxalate (LEXAPRO) 10 mg tablet Take 1 tablet by mouth once daily. (Patient not taking: Reported on 09/09/2022) buPROPion (WELLBUTRIN) 75 mg tablet Take 1 tablet by mouth once daily. multivit,calc,mins/iron/folic (ONE-A-DAY WOMENS FORMULA ORAL) Take by mouth. FAMILY HISTORY Problem Relation Age of Onset Asthma Mother Cataract Mother Cataract Maternal Grandmother Cataract Maternal Grandfather other (Heart, brain mass) Maternal Grandfather Breast Cancer Other great grandmother-p Cataract Paternal Grandmother Cataract Paternal Grandfather Social History Tobacco Use Smoking status: Former Packs/day: 0.50 Years: 5.00 Pack years: 2.50 Types: Cigarettes Smokeless tobacco: Never Vaping Use Vaping Use: Never used Substance Use Topics Alcohol use: Yes Alcohol/week: 0.0 standard drinks Comment: occasionally Drug use: No PHYSICAL EXAM BP 118/66 Pulse 72 Resp 16 Wt 70.8 kg (156 lb) LMP 02/07/2021 BMI 31.49 kg/m Appearance: well dressed well groomed, cooperative, and pleasant Behavior: good eye contact Speech: fluent and coherent Mood: euthymic Affect: appropriate Perceptions: none Thought process: normal Thought Content: normal Intelligence level: normal Insight: good Judgment: good Skin: Skin color, texture, turgor normal for age; Eyes: PERRLA, EOM's intact, conjunctiva pink and moist, no icterus, sclera white, non-injected Ears: external ears normal to inspection and palpation, canals clear, Left tympanic membrane normal. , Right tympanic membrane normal Neck: Thyroid normal size and symmetric without palpable nodules, No adenopathy Lymph nodes: No cervical lymphadenopathy and No supraclavicular lymphadenopathy Lungs: Lungs clear to auscultation. No wheezing, rhonchi, rales. Heart: RRR without murmur, gallop, or rubs. No ectopy Abdomen: Abdomen soft, non-tender. Bowel sounds normal. No masses, organomegaly Extremities: No deformities, edema, skin discoloration, clubbing or cyanosis. Good capillary refill. Neurological: Gait normal. Reflexes normal and symmetric. Sensation grossly intact., Negative findings: speech normal, mental status intact, muscle tone normal, muscle strength normal, positive abi hallpike ASSESSMENT/PLAN: 1. Anxiety and depression - ICD9: 300.00, 311, ICD10: F41.9, F32.A (primary diagnosis) - patient feels this is well controlled at this time. Feels the dizziness and numbness and tingling are not related to her panic or anxiety. - Reviewed concept of neurochemical imbalance wth depression/anxiety, treatment options and benefits of counseling in combination with medication. Also reviewed benefits of sleep hygeine, diet and exercise - Follow-up in 6 months or sooner as needed - Instructed patient to contact office or [id number] after-hours promptly should condition worsen or any new symptoms appear. - Counseling Center [facility] and after hours crisis line 2. Dizziness - ICD9: 780.4, ICD10: R42 - orthostatics negative and Falcon Hallpike positive on left side - probable BPV - home donnell maneuver instructions given to patient. Patient to notify office if no improvement and will send to vestibular therapy 3. Numbness and tingling - ICD9: 782.0, ICD10: R20.0, R20.2 - patient to schedule a visit so this can be further evaluated and discussed Prescription instructions reviewed with patient as applicable. Potential red flag symptoms discussed with the patient. Reviewed appropriate action plan to take if red flag symptoms occur. Patient agreeable to treatment plan Darya Quiñones APRN.CNP documented in this encounter [facility] 09-09-2022 Instructions Shaun Shelton APRN.CNP - 09/09/2022 11:35 AM EST Images from the original note were not included. documented in this encounter [facility] 09-09-2022 History of Present illness Narrative Subjective HPI HPI Jyoti Aranda is a 32 year old female who presents today for CC of cough, congestion, dizziness, fever. This started 3 days ago. Has tried otc medication for relief. Symptoms are worsened by nothing. Risk factors sick exposures at home. Does not suspect /should be starting period soon.. .Patient presents with: Headache: chills, dizziness x 3 days PAST MEDICAL HISTORY Diagnosis Date Back pain Overweight (BMI 25.0-29.9) 11/22/2014 No past surgical history on file. ALLERGIES Patient has no known allergies. MEDICATIONS buPROPion (WELLBUTRIN) 75 mg tablet Take 1 tablet by mouth once daily. multivit,calc,mins/iron/folic (ONE-A-DAY WOMENS FORMULA ORAL) Take by mouth. escitalopram oxalate (LEXAPRO) 10 mg tablet Take 1 tablet by mouth once daily. (Patient not taking: Reported on 09/09/2022) FAMILY HISTORY Problem Relation Age of Onset Asthma Mother Cataract Mother Cataract Maternal Grandmother Cataract Maternal Grandfather other (Heart, brain mass) Maternal Grandfather Breast Cancer Other great grandmother-p Cataract Paternal Grandmother Cataract Paternal Grandfather Social History Tobacco Use Smoking status: Former Packs/day: 0.50 Years: 5.00 Pack years: 2.50 Types: Cigarettes Smokeless tobacco: Never Vaping Use Vaping Use: Never used Substance Use Topics Alcohol use: Yes Alcohol/week: 0.0 standard drinks Comment: occasionally Drug use: No Review of Systems Constitutional: Positive for chills and fever. HENT: Positive for congestion. Negative for ear pain, nosebleeds and sore throat. Respiratory: Positive for cough. Negative for shortness of breath and wheezing. Cardiovascular: Negative for chest pain. Musculoskeletal: Negative for neck pain. Skin: Negative for itching and rash. Objective Blood pressure 120/62, pulse 76, temperature 37.2 C (99 F), resp. rate 16, last menstrual period 02/07/2021, SpO2 99 %. Physical Exam Constitutional: General: She is not in acute distress. Appearance: She is not toxic-appearing or diaphoretic. HENT: Head: Normocephalic and atraumatic. Cardiovascular: Rate and Rhythm: Normal rate and regular rhythm. Heart sounds: Normal heart sounds, S1 normal and S2 normal. Pulmonary: Effort: Pulmonary effort is normal. Breath sounds: Normal breath sounds. Lymphadenopathy: Cervical: No cervical adenopathy. Right cervical: No superficial cervical adenopathy. Left cervical: No superficial cervical adenopathy. Neurological: Mental Status: She is alert and oriented to person, place, and time. Gait: Gait is intact. ASSESSMENT/PLAN: 1. URI, acute - ICD9: 465.9, ICD10: J06.9 - Discussed viral etiology and rationale for treatment. - Symptomatic treatment with prn analgesia - Supportive care with fluids and rest - Follow up in 3-5 days if symptoms persist or sooner if worsening of symptoms -If you experience chest pain/shortness of breath go to ER - COVID WITH FLUA+B, ROUTINE Shaun Shelton APRN.MARY documented in this encounter [facility] 06-19-2022 History of Present illness Narrative Reason for Visit Patient presents with: F/U 6 months: Depression - would like to discontinue meds Jyoti Aranda is a 32 year old female who presents here today for Above Complaints.. Health Maintenance HEPATITIS B(1 of 3 - 3-dose series) COVID-19 VACCINE(1) HPI She did the depression phq 9 and scored only 4 , which shows her depression and anxiety is much much better controlled. She has gained around 20 pounds though, says her new boyfriend is feeding her too much. Works around 60 hours a week Is easier being a single mother She is on lexapro and wellbutrin. She would like to get off the lexapro now We discussed the taper. A month of 5 mgs and then another month of every other day and then stop. She has been exercising on and off, walks 5 miles a day at work. Patient has a yoga mat at home and would like to exercise with it. Patient usually goes to the park Her bp is normal today. Wellbutrin has been helping with her attention, also closure with divorce and getting her out of his home has really helped. No problem-specific Assessment & Plan notes found for this encounter. PAST MEDICAL HISTORY Diagnosis Date Back pain Overweight (BMI 25.0-29.9) 11/22/2014 No past surgical history on file. FAMILY HISTORY Problem Relation Age of Onset Asthma Mother Cataract Mother Cataract Maternal Grandmother Cataract Maternal Grandfather other (Heart, brain mass) Maternal Grandfather Breast Cancer Other great grandmother-p Cataract Paternal Grandmother Cataract Paternal Grandfather Social History Tobacco Use Smoking status: Former Packs/day: 0.50 Years: 5.00 Pack years: 2.50 Types: Cigarettes Smokeless tobacco: Never Vaping Use Vaping Use: Never used Substance Use Topics Alcohol use: Yes Alcohol/week: 0.0 standard drinks Comment: occasionally Drug use: No Past medical history, appointments, medications, allergies reviewed. Pertinent Lab/Diagnostic Studies are reviewed and discussed today Current Outpatient Medications: escitalopram oxalate (LEXAPRO) 10 mg tablet buPROPion (WELLBUTRIN) 75 mg tablet multivit,calc,mins/iron/folic (ONE-A-DAY WOMENS FORMULA ORAL) Review of Systems CONSTITUTIONAL: No fevers, chills night sweats, unintended weight loss CARDIOVASCULAR: No chest pain, dyspnea, palpitations, orthopnea, PND, ankle edema. PULM: No dyspnea, unexplained cough. GI: No dysphagia/odynophagia, problematic reflux, constipation, diarrhea, changes in stool habits, hematochezia, melena. : No new urinary complaints, including dysuria, gross hematuria or pyuria. NEURO: No new balance problems, peripheral weakness/paresthesias or numbness of concern. Physical Exam BP 118/76 Pulse 67 Resp 16 Wt 66.7 kg (147 lb) LMP 02/07/2021 SpO2 (!) 8% BMI 29.67 kg/m General appearance: Well appearing, alert, in no acute distress, well nourished. Skin: Skin color, texture, turgor normal, no suspicious rashes or lesions Head: Normocephalic, no masses, lesions, tenderness or abnormalities Eyes: Anicteric sclera. Pupils are equally round and reactive to light. Extraocular movements are intact. Lungs: Lungs clear to auscultation. No wheezing, rhonchi, rales ASSESSMENT/PLAN: 1. Anxiety and depression - ICD9: 300.00, 311, ICD10: F41.9, F32.A (primary diagnosis) Taper of lexapro, continue the wellbutrin 2. Attention deficit - ICD9: 799.51, ICD10: R41.840 We thinks mostly anxiety and depression was getting in the way and now that she is feeling better she does not need any medication. 3. Panic attacks - ICD9: 300.01, ICD10: F41.0 She is not having any panic attacks Kishor Rock MD documented in this encounter [facility] 06-05-2022 Miscellaneous Notes Medication has been sent to pharmacy today 06/05/2022 at 2:18pm Dolores Tan LPN Patient Jyoti called back, she has been out of medication since 05/31. Please advise, . Patient has been identified by name and date of : Yes Patient phones for refill(s): Requested Prescriptions Pending Prescriptions Disp Refills escitalopram oxalate (LEXAPRO) 10 mg tablet 30 tablet 5 Sig: Take 1 tablet by mouth once daily. Date of last office visit in primary care: 12/12/2021 Last 2 Encounter Wt Readings: Date: Wt: 01/11/2022 62.6 kg (137 lb 14.4 oz) 12/12/2021 61.7 kg (136 lb) Previous labs/tests for medication: Not applicable Please advise. Thank you. Dolores Tan LPN documented in this encounter [facility] 06-05-2022 Miscellaneous Notes Pending in other enocunter Patient is calling again to check the status of her request. Please advise if this will be done today patient has missed now 5 days of doses and she has not been able to work please advise REJI. Patient Jyoti called again, she has been completely out since 05/31, and requested this medication 3 times. Please advise, she had to leave work early today not feeling well, . Patient has been identified by name and date of : Yes Patient phones for refill(s): Requested Prescriptions Pending Prescriptions Disp Refills escitalopram oxalate (LEXAPRO) 10 mg tablet 30 tablet 5 Sig: Take 1 tablet by mouth once daily. Date of last office visit in primary care: 12/12/21 next apt 06/19/22 Last 2 Encounter Wt Readings: Date: Wt: 01/11/2022 62.6 kg (137 lb 14.4 oz) 12/12/2021 61.7 kg (136 lb) Previous labs/tests for medication: Not applicable Thank you. Aleta Rosenberg LPN documented in this encounter [facility] 05-09-2022 Hospital Discharge instructions Patient Education 05/09/2022 17:00:50 Heat Exhaustion Heat Exhaustion Heat exhaustion is a condition that develops during prolonged exposure to heat. It is more likely to occur during strenuous activity, such as exercise or manual labor. Symptoms include a fast heartbeat, excess sweating, extreme tiredness, muscle cramps, headache, and weakness. They may also include stomach cramps, nausea, and vomiting. The person may be lightheaded and dizzy, and may even faint. Treatment for heat exhaustion involves cooling the body down and replacing lost fluids, electrolytes, and salts. Cooling may be done with fans, cold cloths, or a cold-water bath. Fluids are best replaced by drinking electrolyte solution, a sports drink, or water with 2 teaspoons of salt added for each 8 ounces. If a person is very dehydrated, confused, or unable to drink, IV (intravenous) fluids will likely be needed. Heat exhaustion can progress to a serious condition called heatstroke, so it should be treated right away. Home care Continue to drink extra cold fluids at home during the next 12 to 24 hours. Water, electrolyte solution, or sports drinks are advised. Avoid alcohol and caffeine. Preventing heat illness Protect yourself from the heat. Wear lightweight, light-colored clothing and a broad-brimmed hat. Drink plenty of fluids before and during activity. Limit exercise in hot or very humid weather. If you have to be active in the heat, take frequent breaks to drink fluids and cool down. Don't exercise when you are feeling ill. Watch for symptoms of heat illness such as exhaustion, excess sweating, and lightheadedness. If any occur, move to a cool place, rest, and drink cool fluids. Lying down with your legs raised slightly can help you recover. Don't use alcohol or caffeine. Follow-up care Follow up with your healthcare provider, or as advised. When to seek medical advice Call your healthcare provider right away if any of these occur: You can't keep fluids down Vomiting or diarrhea Hot flushed skin Symptoms get worse or you have new symptoms Call 911 Call 911 for any of these symptoms of heatstroke: Confusion Irrational behavior Hallucinations Trouble walking Seizures Passing out Fever of 104 F (40 C) or higher [id number] [employer] [place] [address]. All rights reserved. This information is not intended as a substitute for professional medical care. Always follow your healthcare professional's instructions. 05/09/2022 17:00:39 Possible Causes of Dizziness or Fainting Possible Causes of Dizziness or Fainting Dizziness and fainting can have many causes. Below are some examples of possible causes your healthcare provider will look to rule out. Benign paroxysmal positional vertigo (BPPV) BPPV results when calcium crystals inside the inner ear shift into the wrong position. BPPV causes episodes of vertigo, a spinning sensation. Episodes most often happen when the head is moved in a certain way. This is more common in people age 65 and older. Infection or inflammation The semicircular canals of the ear may become infected or inflamed. In this case, they can send the wrong balance signals. This can cause vertigo. Meniere disease Meniere disease happens when there is too much fluid in the semicircular canals. This can cause vertigo. It also can cause hearing problems and buzzing or ringing in the ears (called tinnitus). You may also have a feeling of pressure or fullness in the ear. Syncope Syncope is fainting that happens when the brain doesn t get enough oxygen-rich blood. It can be caused by low heart rate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 reports that often her feelings change and she is unable to determine what made them change. Though she has empathy for others, she has difficulty recognizing her own reactions to circumstances and events. Sleep is generally appropriate though she reports that she often falls asleep in multiple places she notes that she used to have difficulty falling asleep but has not had trouble in the last 2 months. Duration of sleep (5 to 7 hours) is generally appropriate for her age and she notes that she moves around a lot in the bed. Amada denies alcohol use and acknowledges vaping daily. Amada reports that she engages in idiosyncratic behavior and that she picks at her hair and bites her fingernails when she does not have artificial nails. She describes that she has difficulty recognizing her own affect of states because I just do not feel nothing. During clinical interview, Amada came to tears several times when recalling traumatic events in her life and she reports, it was nice to feel something again even though it was sadness hurt. She notes that if she could change herself she would change my belly, feel more emotions, and be happier. THREAT TO SELF/OTHERS: Client poses threat to self? No Client poses threat to others? No PHARMACOTHERAPY: Yes, Lexapro and bupropion TARGET AREAS FOR INTERVENTION: ATTENTION AND TASK ORIENTATION: Increase work approach; decrease work avoidance., Decrease procrastination. USING LANGUAGE TO DIRECT ACTIVITY: Self-direct personal activity through self-talk. SOCIAL IMPAIRMENT: Increase positive contacts with friends/social network. INTERVENTIONS AND GOALS OF TREATMENT: (DICTATED) TREATMENT RECOMMENDATIONS COACHING -Jyoti reports significant incomplete projects. Behavioral coaching may assist to identify a means of structuring the environment such that these incompletions may be managed at present and ongoingly. For example, if paying bills is a tedious task that is consistently avoided, then paying a support person to manage bills may be an appropriate course of action. -Using a behavioral assistant basketball coach to assist to schedule and structure each day in order to allow for maximum accomplishment may be helpful. -Jyoti may consider completing incomplete projects that have accrued over a number of months or even years by selecting one at a time and working in cooperation with a behavioral assistant basketball coach. When incomplete projects are accounted for and either finished or formally abandoned, Joyti subsequently may move on to other activities that tamiko renewed interest. MEDICATION MANAGEMENT -Jyoti and the primary care physician may consider instituting the use of medication. Extended release medications have demonstrated effectiveness in both children and adults. Systematic adjustment of dosage levels, repeated measurement of medication response and systematic observation of side effects are recommended. Pharmacotherapy should be used in conjunction with behavioral intervention to achieve maximum benefit. -Beneficial effects have been observed with current medication treatment. Current pharmacotherapy should be maintained. Repeated measurement of behavioral improvement and systematic monitoring of side effects are likely to be helpful. ORGANIZATIONAL STRATEGIES: GENERAL -Large tasks may be broken into smaller tasks in order to complete those small tasks in shorter periods of time. Chunking enables large tasks to be completed without requiring sustained mental effort. -Using a list of tasks or other system to keep tasks in existence will assist Jyoti not to keep things in the head . Trying to remember a number of tasks is usually counterproductive. Using reminders in the physical environment (e.g., to-do lists, electronic reminders) is more effective than trying to commit a task list to memory and attempting to recall items at [place] times. -Jyoti may consider making a list of the outstanding incomplete projects. The list may then be divided into those that can be accomplished quickly (less than 10 minute tasks) and those that will take longer to finish. Organizing in this way may more consistently address incompletions. ORGANIZATIONAL STRATEGIES: NETWORK -Jyoti may assign a time to complete a task and report this time to someone who will hold her to the commitment. For example, if a report must be written, creating a by-when and telling someone who agrees to ask about it later, is likely to support work completion. Making agreements of this kind can be a productive way to support work completion. ORGANIZATIONAL STRATEGIES: [place]/EXISTENCE SYSTEM -An incomplete project is any project that one's mind goes back to. This may occur as a thought that repeatedly pops up or intrudes on one's attention during the course of the day. Completing projects eliminates this intrusion to free attention and relieves the anxiety associated with leaving things unfinished. -Developing and using an existence-system , such as an electronic strap buckler machine, daily data recovery planner, or other procedure that keeps projects in physical existence is necessary. Care must be taken to choose an existence-system that works rather than one that was previously used and discarded. ORGANIZATIONAL STRATEGIES: ROTE TASKS -Jyoti may consider developing a regular routine to complete repetitive tasks. Having a regular routine to complete rote tasks, for example always doing bills on the 15th and 30th of the month, is likely to be effective. -Scheduling rote tasks for the day, week and month is likely to be helpful. [place] tasks for the day may be checking emails; for the week may be cleaning the home, and for the month, paying bills on the 15 and 30th. ORGANIZATIONAL STRATEGIES: SCHEDULING -A consistent schedule from day to day is likely to be helpful. Scheduling activities over the course of the day, especially work periods, may increase the probability that tasks will be finished. -Jyoti reports that many times the mind wanders to projects or tasks that are left incomplete. She will interrupt a task as she thinks of something else to do, and subsequently attends to the new task which itself may then be interrupted. It may be helpful if, prior to working on a particular task, she selects a stopping place and does not stop working until getting to that stopping place. -Jyoti may assign a specific stop time when working on a task. Assigning a time to stop working may sustain task orientation. Setting a timer can be helpful. PSYCHOTHERAPY -Psychotherapy for low mood and anxiety may be helpful. Negative cognitive self-statements may be explored and stimulus events that tend to elicit negative self-statements may be identified. SELF-EFFICIACY -Jyoti may also distinguish between deficient behavior and different behavior. One can learn to recognize personal skills and talents and the skills and talents of others. That others do a task more easily does not mean that there is something wrong with you. Emphasizing difference and individuality over deficiency is likely to assist the development of healthy, undiminished self-regard and self-efficacy. -Jyoti may wish to write down the broken agreements that have accumulated over the last year. In remaking agreements or in cleaning them up , the anxiety associated with them may be reduced. -Jyoti may consider making a list of agreements made and subsequently broken. Such a list would include agreements with a) self, b) family/friends, c) work, and d) other. Remaking agreements or cleaning them up may have a positive effect on future interactions. -Jyoti may consider that feelings follow behavior, not precede them. That is, taking action, such as scheduling activities with friends and planning to be more active, may improve a sense of well-being. SELF-MONITORING -Jyoti may discriminate what she does well and the positive results of personal behavior. This may help clarify the positive influence she has on others and may help her better see personal contribution. WEBSITES -Jyoti may consider seeking coaching to assist in organizing activities and prioritizing tasks. Adult coaches may be accessed in various websites such as [email or web address] website. -http://[email or web address] [email or web address] ADDITIONAL SYMPTOMS, FUNCTIONING LEVEL, AND COMMENTS: PURPOSE OF VISIT: To improve day to day performance at home and work. ADDITIONAL INFORMATION TO BE DICTATED FOR SUMMARY REPORT. SEE FORTHCOMING ATTACHED LETTER FOR SUMMARY. NEXT ACTION: REVIEW SUMMARY REPORT WITH CLIENT. Discussed Informed Consent: Reviewed the treatment modalities of [facility]; provided staff credentials; reviewed confidentiality guidelines, limitations & alternatives; financial responsibility reviewed in consent letter; patient signed informed consent; patient informed that non-medical [facility] staff do not practice medicine; referred to physician for medical consultation if necessary. Parents were informed that clinician does not practice medicine and does not give medical advice. Patient was seen for an initial evaluation. This evaluation is not intended for forensic, disability or child custody purposes. This document may contain confidential, privileged information protected by Employee Relations Consultant, Peer Review and Risk Management. Report privileges as outlined in [place] Revised Code Sections 2317.02 (B) (1), 2305.24, 2305.25- 2217.253. This report was produced in part using voice recognition software and, as a result, may contain spelling, grammar, punctuation, and other errors despite proofreading. The interpretation included in this report is derived from direct observation, clinical interview, review of rating scales, and a review of test data. Kenneth Saldaña, PhD documented in this encounter [facility] 01-11-2022 History of Present illness Narrative Spine Care Path Initial Exam CC; thoracic pain SUBJECTIVE HISTORY OF PRESENT ILLNESS: Jyoti Aranda is a 31 year old female who presents with a chief complaint of thoracic back pain and is seen at her request. Mid back pain-in between shoulder blades. Notes started 11/01-was picking up a steel post and notes heard a pop was on the floor. Notes does this all the time but unsure what happened this time. At current job for 2 years. Pain is constant but less intense since initiation. Notes has been on light duty for the last 2 months via workman's comp doctor-Louise. Notes now mainly pain is worse with grabbing above her head which she notes has to do at work. Can rotate, bend and stand w/o issue. Very rare L sided radiation to flank Denies arm and leg pain Some numb fingertips that is intermittent, all 10 fingertips. Denies balance issues. Denies focal weakness Denies fine motor issues. PAIN EVALUATION 01/11/2022 0926 Pain Level: 1 Pain Location: Back-Middle Description: Aching;Dull Duration Units: Months Frequency: Continuous Prior Therapy: completed PT for 2 months. doing HEP. helped. Last went to PT 12/20. Medications-none current. Prior naprosyn. Flexeril as needed. Medrol pack. Patient Entered Questionnaires Spine Questions 01/09/2022 Pain Location: Upper back/torso Pain Duration: 1-3 months Symptoms from neck/cervical spine: No Employment Status: Working now Involved in law suit/legal claim: No Spine Red Flags 01/09/2022 Any type of cancer: No Unexplained fever: No Bowel or bladder disfunction: No Unintentional weight loss: No Osteoporosis: No PROMIS Score Percentiles Physical Health 01/09/2022 Physical Function Percentile 34 Sleep Percentile 7 Fatigue Percentile 8 Pain Interference Percentile 16* PROMIS SOCIAL ROLE SCORE 01/09/2022 Social Role Satisfaction Percentile 18* PROMIS Global Health Scale 12/10/2021 Physical Health Percentile 53 Mental Health Percentile 34 Percentiles provide an indication of how the patient's score ranks in relation to the general population. Higher percentile rankings indicate better function/quality of life. 50th percentile is the average of the general population and indicates half of respondents had a worse score. Depression Screening: PHQ-9 01/09/2022 Score 9 PHQ-9 Self Harm 01/09/2022 Question 9 Not at all PHQ-9 Self-Harm (Item 9) response options: 0 Not at all 1 Several days 2 More than half the days 3 Nearly every day PHQ-9 Levels: 0-4 No - mild depression 5-9 Mild depression 10-14 Moderate depression 15-19 Moderately severe depression 20-27 Severe depression ACTIVE PROBLEM LIST Rhinitis Eustachian Tube Dysfunction Back Ache Anxiety and Depression Situational Depression Panic Attacks Attention Deficit PAST MEDICAL HISTORY Diagnosis Date Back pain Overweight (BMI 25.0-29.9) 11/22/2014 No past surgical history on file. Social History Tobacco Use Smoking status: Former Smoker Packs/day: 0.50 Years: 5.00 Pack years: 2.50 Types: Cigarettes Smokeless tobacco: Never Used Vaping Use Vaping Use: Never used Substance Use Topics Alcohol use: Yes Alcohol/week: 0.0 standard drinks Comment: occasionally Drug use: No FAMILY HISTORY Problem Relation Age of Onset Asthma Mother Cataract Mother Cataract Maternal Grandmother Cataract Maternal Grandfather other (Heart, brain mass) Maternal Grandfather Breast Cancer Other great grandmother-p Cataract Paternal Grandmother Cataract Paternal Grandfather ALLERGIES No Known Allergies CURRENT MEDICATIONS: escitalopram oxalate (LEXAPRO) 10 mg tablet Take 1 tablet by mouth once daily. buPROPion (WELLBUTRIN) 75 mg tablet Take 1 tablet by mouth once daily. multivit,calc,mins/iron/folic (ONE-A-DAY WOMENS FORMULA ORAL) Take by mouth. REVIEW OF SYSTEMS: see above OBJECTIVE: PHYSICAL EXAM BP 110/68 Pulse 78 Ht 149.9 cm (4' 11.02 ) Wt 62.6 kg (137 lb 14.4 oz) LMP 02/07/2021 BMI 27.84 kg/m General: Pleasant individual in NAD Mental Status: Oriented to person place and time. Displays appropriate mood and affect. GAIT: Gait is normal. Gross Motor: tandem gait is normal. Strength Testing: Bilateral upper and lower extremity strength is normal and symmetric. No atrophy or tone abnormalities are noted. Neuro: Bilateral upper and lower extremity coordination and muscle stretch reflexes are physiologic and symmetric. Negative pollack's Spine Range of Motion: Normal range of motion with slight pain reproduction with L rotation Palpation: Inspection and palpatory examination of the spine upper/lower extremities is unremarkable except for significant tenderness at apx T4-6. Peripheral Vascular: No obvious extremity swelling in all 4 extremities. Appearance of Skin: Skin inspection of the trunk, bilateral upper and lower extremities is unremarkable. Data Review: Per chart review-no images Thoracic CT scan 11/01/2021- FINDINGS: VERTEBRAE: No fracture. No discrete lytic or blastic abnormality observed. VERTEBRAL ALIGNMENT: Unremarkable. There is preservation of the normal thoracic kyphosis. DISCS: Disc heights are preserved. VISUALIZED THORAX: Visualized thoracic aorta is nondilated. Lung salas are clear. Intact T4 inferior endplate without fracture. Other visualized cervical and upper thoracic lumbar vertebrae are intact with no fracture. Thoracic xrays-11/01/2021- FINDINGS: VERTEBRAE: Preserved vertebral body height. Questionable fracture involving the inferior endplate of T4 on the left, only visible on the AP view. No spondylolisthesis. Preservation of the normal thoracic kyphosis. No significant facet arthropathy. DISCS: Disc spaces are relatively well maintained with mild, multifocal degenerative endplate sclerosis and minimal osteophytosis, most notable at T9-10 level. Thoracic MRI 12/2021-per my review-no report available. Normal vertebral body height, alignment. No significant stenosis, normal cord signal. ? Very minimal DDD at mid thoracic region ASSESSMENT/PLAN Subacute mid back pain-improving. Thoracic MRI per my review is overall unremarkable, no clear cut reason for significant point tenderness on exam-does not appears to have vertebral body bony compression--? Soft tissue component/myofascial. Will have radiology here review thoracic MRI given ongoing symptoms and exam. Will also check ESR, CRP. Call for results. Patricia King MD The above plan and management options were discussed at length with patient. Patient is in agreement with the above and verbalized understanding. Patient instructed to call/seek urgent medical care with worsening of symptoms or change of neurological status. Patient provided with office contact. SIGNATURE: Patricia King MD PATIENT NAME: Jyoti Aranda DATE: January 11, 2022 TIME: 10:15 AM documented in this encounter [facility] documented as of this encounter (statuses as of 01/11/2022) [facility] History of Past illness Narrative* Problem Noted Date Resolved Date Overweight (BMI 25.0-29.9) 11/22/201405/24 Last Assessment & Plan: Patient was started on adipex she did not tolerate it, It gave her palpitations, dizziness and dry mouth and sleeplessness. She had so much thumping of the heart. She has no family support. documented as of this encounter (statuses as of 03/22/2022) [facility] History of Past illness Narrative* Problem Noted Date Resolved Date Overweight (BMI 25.0-29.9) 11/22/201405/24 Last Assessment & Plan: Patient was started on adipex she did not tolerate it, It gave her palpitations, dizziness and dry mouth and sleeplessness. She had so much thumping of the heart. She has no family support. documented as of this encounter (statuses as of 04/22/2022) [facility] History of Past illness Narrative* Problem Noted Date Resolved Date Overweight (BMI 25.0-29.9) 11/22/201405/24 Last Assessment & Plan: Patient was started on adipex she did not tolerate it, It gave her palpitations, dizziness and dry mouth and sleeplessness. She had so much thumping of the heart. She has no family support. documented as of this encounter (statuses as of 06/05/2022) [facility] History of Past illness Narrative* Problem Noted Date Resolved Date Overweight (BMI 25.0-29.9) 11/22/201405/24 Last Assessment & Plan: Patient was started on adipex she did not tolerate it, It gave her palpitations, dizziness and dry mouth and sleeplessness. She had so much thumping of the heart. She has no family support. documented as of this encounter (statuses as of 06/19/2022) [facility] History of Past illness Narrative* Problem Noted Date Resolved Date Overweight (BMI 25.0-29.9) 11/22/201405/24 Last Assessment & Plan: Patient was started on adipex she did not tolerate it, It gave her palpitations, dizziness and dry mouth and sleeplessness. She had so much thumping of the heart. She has no family support. documented as of this encounter (statuses as of 09/09/2022) [facility] History of Past illness Narrative* Problem Noted Date Resolved Date Overweight (BMI 25.0-29.9) 11/22/201405/24 Last Assessment & Plan: Patient was started on adipex she did not tolerate it, It gave her palpitations, dizziness and dry mouth and sleeplessness. She had so much thumping of the heart. She has no family support. documented as of this encounter (statuses as of 09/19/2022) [facility] History of Past illness Narrative* Problem Noted Date Resolved Date Overweight (BMI 25.0-29.9) 11/22/201405/24 Last Assessment & Plan: Patient was started on adipex she did not tolerate it, It gave her palpitations, dizziness and dry mouth and sleeplessness. She had so much thumping of the heart. She has no family support. documented as of this encounter (statuses as of 11/01/2022) [facility] History of Past illness Narrative* Problem Noted Date Resolved Date Overweight (BMI 25.0-29.9) 11/22/201405/24 Last Assessment & Plan: Patient was started on adipex she did not tolerate it, It gave her palpitations, dizziness and dry mouth and sleeplessness. She had so much thumping of the heart. She has no family support. documented as of this encounter (statuses as of 01/23/2023) [facility] History of Past illness Narrative* Problem Noted Date Resolved Date Overweight (BMI 25.0-29.9) 11/22/201405/24 Last Assessment & Plan: Patient was started on adipex she did not tolerate it, It gave her palpitations, dizziness and dry mouth and sleeplessness. She had so much thumping of the heart. She has no family support. documented as of this encounter (statuses as of 01/23/2023) [facility] History of Past illness Narrative* Problem Noted Date Resolved Date Overweight (BMI 25.0-29.9) 11/22/201405/24 Last Assessment & Plan: Patient was started on adipex she did not tolerate it, It gave her palpitations, dizziness and dry mouth and sleeplessness. She had so much thumping of the heart. She has no family support. documented as of this encounter (statuses as of 01/25/2023) [facility] History of Past illness Narrative* Problem Noted Date Resolved Date Overweight (BMI 25.0-29.9) 11/22/201405/24 Last Assessment & Plan: Patient was started on adipex she did not tolerate it, It gave her palpitations, dizziness and dry mouth and sleeplessness. She had so much thumping of the heart. She has no family support. documented as of this encounter (statuses as of 04/03/2023) [facility] History of Past illness Narrative* Problem Noted Date Diagnosed Date Resolved Date Overweight (BMI 25.0-29.9) 11/22/2014 0 05/24/2021 Last Assessment & Plan: Patient was started on adipex she did not tolerate it, It gave her palpitations, dizziness and dry mouth and sleeplessness. She had so much thumping of the heart. She has no family support. documented as of this encounter (statuses as of 05/14/2023) [facility] History of Past illness Narrative* Problem Noted Date Diagnosed Date Resolved Date Overweight (BMI 25.0-29.9) 11/22/2014 0 05/24/2021 Last Assessment & Plan: Patient was started on adipex she did not tolerate it, It gave her palpitations, dizziness and dry mouth and sleeplessness. She had so much thumping of the heart. She has no family support. documented as of this encounter (statuses as of 05/22/2023) [facility] History of Past illness Narrative* Problem Noted Date Diagnosed Date Resolved Date Overweight (BMI 25.0-29.9) 11/22/2014 0 05/24/2021 Last Assessment & Plan: Patient was started on adipex she did not tolerate it, It gave her palpitations, dizziness and dry mouth and sleeplessness. She had so much thumping of the heart. She has no family support. documented as of this encounter (statuses as of 05/28/2023) [facility] History of Past illness Narrative* Problem Noted Date Diagnosed Date Resolved Date Overweight (BMI 25.0-29.9) 11/22/2014 0 05/24/2021 Last Assessment & Plan: Patient was started on adipex she did not tolerate it, It gave her palpitations, dizziness and dry mouth and sleeplessness. She had so much thumping of the heart. She has no family support. documented as of this encounter (statuses as of 05/29/2023) [facility] History of Past illness Narrative* Problem Noted Date Diagnosed Date Resolved Date Overweight (BMI 25.0-29.9) 11/22/2014 0 05/24/2021 Last Assessment & Plan: Patient was started on adipex she did not tolerate it, It gave her palpitations, dizziness and dry mouth and sleeplessness. She had so much thumping of the heart. She has no family support. documented as of this encounter (statuses as of 06/06/2023) [facility] History of Past illness Narrative* Problem Noted Date Diagnosed Date Resolved Date Overweight (BMI 25.0-29.9) 11/22/2014 0 05/24/2021 Last Assessment & Plan: Patient was started on adipex she did not tolerate it, It gave her palpitations, dizziness and dry mouth and sleeplessness. She had so much thumping of the heart. She has no family support. documented as of this encounter (statuses as of 06/25/2023) [facility] History of Past illness Narrative* Problem Noted Date Diagnosed Date Resolved Date Overweight (BMI 25.0-29.9) 11/22/2014 0 05/24/2021 Last Assessment & Plan: Patient was started on adipex she did not tolerate it, It gave her palpitations, dizziness and dry mouth and sleeplessness. She had so much thumping of the heart. She has no family support. documented as of this encounter (statuses as of 07/12/2023) [facility] History of Past illness Narrative* Problem Noted Date Diagnosed Date Resolved Date Overweight (BMI 25.0-29.9) 11/22/2014 0 05/24/2021 Last Assessment & Plan: Patient was started on adipex she did not tolerate it, It gave her palpitations, dizziness and dry mouth and sleeplessness. She had so much thumping of the heart. She has no family support. documented as of this encounter (statuses as of 07/15/2023) [facility] History of Past illness Narrative* Problem Noted Date Diagnosed Date Resolved Date Overweight (BMI 25.0-29.9) 11/22/2014 0 05/24/2021 Last Assessment & Plan: Patient was started on adipex she did not tolerate it, It gave her palpitations, dizziness and dry mouth and sleeplessness. She had so much thumping of the heart. She has no family support. documented as of this encounter (statuses as of 07/18/2023) [facility] History of Past illness Narrative* Problem Noted Date Diagnosed Date Resolved Date Overweight (BMI 25.0-29.9) 11/22/2014 0 05/24/2021 Last Assessment & Plan: Patient was started on adipex she did not tolerate it, It gave her palpitations, dizziness and dry mouth and sleeplessness. She had so much thumping of the heart. She has no family support. documented as of this encounter (statuses as of 07/29/2023) [facility] History of Past illness Narrative* Problem Noted Date Diagnosed Date Resolved Date Overweight (BMI 25.0-29.9) 11/22/2014 0 05/24/2021 Last Assessment & Plan: Patient was started on adipex she did not tolerate it, It gave her palpitations, dizziness and dry mouth and sleeplessness. She had so much thumping of the heart. She has no family support. documented as of this encounter (statuses as of 08/05/2023) [facility] History of Past illness Narrative* Problem Noted Date Diagnosed Date Resolved Date Overweight (BMI 25.0-29.9) 11/22/2014 0 05/24/2021 Last Assessment & Plan: Patient was started on adipex she did not tolerate it, It gave her palpitations, dizziness and dry mouth and sleeplessness. She had so much thumping of the heart. She has no family support. documented as of this encounter (statuses as of 08/11/2023) [facility] History of Past illness Narrative* Problem Noted Date Diagnosed Date Resolved Date Overweight (BMI 25.0-29.9) 11/22/2014 0 05/24/2021 Last Assessment & Plan: Patient was started on adipex she did not tolerate it, It gave her palpitations, dizziness and dry mouth and sleeplessness. She had so much thumping of the heart. She has no family support. documented as of this encounter (statuses as of 09/07/2023) [facility] History of Past illness Narrative* Problem Noted Date Diagnosed Date Resolved Date Overweight (BMI 25.0-29.9) 11/22/2014 0 05/24/2021 Last Assessment & Plan: Patient was started on adipex she did not tolerate it, It gave her palpitations, dizziness and dry mouth and sleeplessness. She had so much thumping of the heart. She has no family support. documented as of this encounter (statuses as of 09/09/2023) [facility] History of Past illness Narrative* Problem Noted Date Diagnosed Date Resolved Date Overweight (BMI 25.0-29.9) 11/22/2014 0 05/24/2021 Last Assessment & Plan: Patient was started on adipex she did not tolerate it, It gave her palpitations, dizziness and dry mouth and sleeplessness. She had so much thumping of the heart. She has no family support. documented as of this encounter (statuses as of 09/25/2023) [facility] History of Past illness Narrative* Problem Noted Date Diagnosed Date Resolved Date Overweight (BMI 25.0-29.9) 11/22/2014 0 05/24/2021 Last Assessment & Plan: Patient was started on adipex she did not tolerate it, It gave her palpitations, dizziness and dry mouth and sleeplessness. She had so much thumping of the heart. She has no family support. documented as of this encounter (statuses as of 11/11/2023) [facility] History of Past illness Narrative* Problem Noted Date Diagnosed Date Resolved Date Overweight (BMI 25.0-29.9) 11/22/2014 0 05/24/2021 Last Assessment & Plan: Patient was started on adipex she did not tolerate it, It gave her palpitations, dizziness and dry mouth and sleeplessness. She had so much thumping of the heart. She has no family support. documented as of this encounter (statuses as of 11/18/2023) [facility] History of Past illness Narrative* Problem Noted Date Diagnosed Date Resolved Date Overweight (BMI 25.0-29.9) 11/22/2014 0 05/24/2021 Last Assessment & Plan: Patient was started on adipex she did not tolerate it, It gave her palpitations, dizziness and dry mouth and sleeplessness. She had so much thumping of the heart. She has no family support. documented as of this encounter (statuses as of 11/18/2023) [facility] History of Past illness Narrative* Problem Noted Date Diagnosed Date Resolved Date Overweight (BMI 25.0-29.9) 11/22/2014 0 05/24/2021 Last Assessment & Plan: Patient was started on adipex she did not tolerate it, It gave her palpitations, dizziness and dry mouth and sleeplessness. She had so much thumping of the heart. She has no family support. documented as of this encounter (statuses as of 11/19/2023) [facility] History of Past illness Narrative* Problem Noted Date Diagnosed Date Resolved Date Overweight (BMI 25.0-29.9) 11/22/2014 0 05/24/2021 Last Assessment & Plan: Patient was started on adipex she did not tolerate it, It gave her palpitations, dizziness and dry mouth and sleeplessness. She had so much thumping of the heart. She has no family support. documented as of this encounter (statuses as of 11/19/2023) [facility] History of Past illness Narrative* Problem Noted Date Diagnosed Date Resolved Date Overweight (BMI 25.0-29.9) 11/22/2014 0 05/24/2021 Last Assessment & Plan: Patient was started on adipex she did not tolerate it, It gave her palpitations, dizziness and dry mouth and sleeplessness. She had so much thumping of the heart. She has no family support. documented as of this encounter (statuses as of 11/25/2023) [facility] History of Past illness Narrative* Problem Noted Date Diagnosed Date Resolved Date Overweight (BMI 25.0-29.9) 11/22/2014 0 05/24/2021 Last Assessment & Plan: Patient was started on adipex she did not tolerate it, It gave her palpitations, dizziness and dry mouth and sleeplessness. She had so much thumping of the heart. She has no family support. documented as of this encounter (statuses as of 12/03/2023) [address]17-2015 History of Past illness Narrative* Problem Noted Date Diagnosed Date Resolved Date Overweight (BMI 25.0-29.9) 11/22/2014 0 05/24/2021 Last Assessment & Plan: Patient was started on adipex she did not tolerate it, It gave her palpitations, dizziness and dry mouth and sleeplessness. She had so much thumping of the heart. She has no family support. documented as of this encounter (statuses as of 12/03/2023) [facility] History of Past illness Narrative* Problem Noted Date Diagnosed Date Resolved Date Overweight (BMI 25.0-29.9) 11/22/2014 0 05/24/2021 Last Assessment & Plan: Patient was started on adipex she did not tolerate it, It gave her palpitations, dizziness and dry mouth and sleeplessness. She had so much thumping of the heart. She has no family support. documented as of this encounter (statuses as of 12/04/2023) [facility] History of Past illness Narrative* Problem Noted Date Diagnosed Date Resolved Date Overweight (BMI 25.0-29.9) 11/22/2014 0 05/24/2021 Last Assessment & Plan: Patient was started on adipex she did not tolerate it, It gave her palpitations, dizziness and dry mouth and sleeplessness. She had so much thumping of the heart. She has no family support. documented as of this encounter (statuses as of 12/05/2023) [place] [address]-17-2015 History of Past illness Narrative* Problem Noted Date Diagnosed Date Resolved Date Overweight (BMI 25.0-29.9) 11/22/2014 0 05/24/2021 Last Assessment & Plan: Patient was started on adipex she did not tolerate it, It gave her palpitations, dizziness and dry mouth and sleeplessness. She had so much thumping of the heart. She has no family support. documented as of this encounter (statuses as of 12/10/2023) [facility] History of Past illness Narrative* Problem Noted Date Diagnosed Date Resolved Date Overweight (BMI 25.0-29.9) 11/22/2014 0 05/24/2021 Last Assessment & Plan: Patient was started on adipex she did not tolerate it, It gave her palpitations, dizziness and dry mouth and sleeplessness. She had so much thumping of the heart. She has no family support. documented as of this encounter (statuses as of 12/12/2023) [facility] No data available for this section [facility]* Diagnosis Thoracic back pain, unspecified back pain laterality, unspecified chronicity- Primary [facility] Diagnosis Attention deficit hyperactivity disorder (ADHD), unspecified ADHD type- Primary Major depressive disorder, recurrent episode, in partial remission with anxious distress (HCC) [facility] Diagnosis Anxiety and depression- Primary Dysthymic disorder Attention deficit Attention or concentration deficit Panic attacks Panic disorder without agoraphobia [facility] Diagnosis URI, acute- Primary Acute upper respiratory infections of unspecified site [facility] Diagnosis Anxiety and depression- Primary Dysthymic disorder Dizziness Dizziness and giddiness Numbness and tingling Disturbance of skin sensation [facility] Diagnosis Irregular menses- Primary Irregular menstrual cycle Chest pain, unspecified type [facility] Patient left without being seen- Primary Surgical or other procedure not carried out because of patient's decision [facility] Diagnosis Panic attack- Primary Panic disorder without agoraphobia [facility] Diagnosis Breast pain- Primary Mastodynia Anxiety Anxiety state, unspecified Panic attacks Panic disorder without agoraphobia Other fatigue Vitamin D deficiency Unspecified vitamin D deficiency Encounter for therapeutic drug monitoring documented in this encounter [facility] note* Diagnosis Breast pain- Primary Mastodynia [facility]* Diagnosis Pelvic pain- Primary documented in this encounter [facility] note* Diagnosis Positive urine test- Primary examination or test, positive result documented in this encounter [facility] note* Diagnosis URI, acute- Primary Acute upper respiratory infections of unspecified site documented in this encounter [facility] note* Diagnosis with uncertain dates in first trimester- Primary 9 weeks gestation of state, incidental Encounter for supervision of normal in multigravida in first trimester [facility] Diagnosis 9 weeks gestation of - Primary state, incidental Encounter for supervision of normal in multigravida in first trimester Screening for cervical cancer Screening for malignant neoplasm of the cervix documented in this encounter [facility] note* Diagnosis 12 weeks gestation of - Primary state, incidental Encounter for supervision of normal in multigravida in first trimester Constipation, unspecified constipation type [facility]* Diagnosis 17 weeks gestation of - Primary state, incidental Encounter for supervision of other normal in second trimester [facility]* Diagnosis Sciatica, right side- Primary documented in this encounter [facility] note* Diagnosis Fatigue, unspecified type- Primary Headache, unspecified headache type [facility]* Diagnosis Encounter for supervision of other normal in second trimester- Primary 27 weeks gestation of state, incidental Heartburn during , antepartum Request for sterilization documented in this encounter [facility] note* Diagnosis Abnormal maternal glucose tolerance, antepartum- Primary [facility] Diagnosis Abnormal maternal glucose tolerance, antepartum [facility]* Diagnosis Dietary counseling- Primary Dietary surveillance and counseling Abnormal maternal glucose tolerance, antepartum [facility] Diagnosis 29 weeks gestation of - Primary state, incidental Abnormal glucose in , antepartum Abnormal maternal glucose tolerance, antepartum Situational depression Adjustment disorder with depressed mood Supervision of other high risk pregnancies, first trimester [facility] Diagnosis Diet controlled gestational diabetes mellitus (GDM) in third trimester- Primary 31 weeks gestation of state, incidental [facility] LEXY ZAMUDIO DO: SIGN, VERIFY Event Display: EKG [ED AO] - CV Authored Date: [id number] [facility] Reason for referral (narrative)* Diagnostic Procedure Only (Routine) - Authorized Specialty Diagnoses / Procedures Referred By Contac t Referred To Contact [facility] Diagnoses Breast pain Procedures STEVE DIAGNOSTIC LEFT DIAGNOSTIC MAMMOGRAPHY COMPUTER-AIDED DETCJ UNI Edwige Goldsmith APRN.CNP [address] [place], [place] [id number] [facility] [address] [place] [address] Referral ID Status Reason Start Date Expiration Date Visits Requested Visits Authorized [id number] Authorized Auto-Generat ed Referral 05/13/2023 06/11/2024 1 1 * Diagnostic Procedure Only (Routine) - Authorized Specialty Diagnoses / Procedures Referred By Victorino t Referred To Contact [facility] Diagnoses Breast pain Procedures US BREAST LTD LEFT US BREAST UNI REAL TIME WITH IMAGE LIMITED Edwige Goldsmith APRN.CNP [address] [place], [place] [id number] [facility] [address] [place] [address] Referral ID Status Reason Start Date Expiration Date Visits Requested Visits Authorized [id number] Authorized Auto-Generat ed Referral 05/13/2023 06/11/2024 1 1 [facility] for referral (narrative)* Diagnostic Procedure Only (Routine) - Authorized Specialty Diagnoses / Procedures Referred By Contac t Referred To Contact [facility] Diagnoses Breast pain Procedures STEVE DIAGNOSTIC BILATERAL DIAGNOSTIC MAMMOGRAPHY COMPUTER-AIDED DETCJ BI Edwige Goldsmith APRN.CNP [address] [place] [address] [facility] [address] [place] [address] Referral ID Status Reason Start Date Expiration Date Visits Requested Visits Authorized [id number] Authorized Auto-Generat ed Referral 05/21/2023 06/19/2024 1 1 [facility] for referral (narrative)* Diagnostic Procedure Only (Routine) - Pending Review Specialty Diagnoses / Procedures Referred By Contac t Referred To Contact [facility] Diagnoses 9 weeks gestation of Encounter for supervision of normal in multigravida in first trimester Procedures NUCHAL TRANSLUCENCY WHI US NUCHAL TRANSLUCENCY 1ST GESTATION Shu Reeves APRN.CNM [address] [place] [address] [address] Referral ID Status Reason Start Date Expiration Date Visits Requested Visits Authorized [id number] Pending Review Auto-Generat ed Referral 07/11/2023 07/10/2024 1 1 * Diagnostic Procedure Only (Routine) - Pending Review Specialty Diagnoses / Procedures Referred By Contac t Referred To Contact [facility] Diagnoses 9 weeks gestation of Encounter for supervision of normal in multigravida in first trimester Procedures OBSTETRIC ULTRASOUND WHI US PREG UTERUS AFTER 1ST TRIMEST GESTATION Shu Reeves APRN.CNM [address] [place] [address] [address] Referral ID Status Reason Start Date Expiration Date Visits Requested Visits Authorized [id number] Pending Review Auto-Generat ed Referral 07/11/2023 07/10/2024 1 1 [facility] for referral (narrative)* Diagnostic Procedure Only (Routine) - Authorized Specialty Diagnoses / Procedures Referred By Contac t Referred To Contact [facility] Diagnoses 29 weeks gestation of Procedures OBSTETRIC ULTRASOUND WHI US PREG UTERUS AFTER 1ST TRIMEST 1 GESTATION Shu Reeves APRN.CNM [address] [place] [address] [facility] [address] [place] [address] Referral ID Status Reason Start Date Expiration Date Visits Requested Visits Authorized [id number] Authorized Auto-Generat ed Referral 12/01/2023 11/30/2024 1 1 [facility] for visit Narrative* Diagnostic Procedure Only (Routine) - Closed Specialty Diagnoses / Procedures Referred By Contac t Referred To Contact [facility] Diagnoses 29 weeks gestation of Procedures OBSTETRIC ULTRASOUND WHI US PREG UTERUS AFTER 1ST TRIMEST GESTATION Shu Reeves APRN.CNM [address] [place] [address] [facility] [address] [place] [address] Referral ID Status Reason Start Date Expiration Date V isits Requested Visits Authorized [id number] Closed Auto-Generate d Referral 12/01/2023 11/30/2024 1 1 [facility] Summary Purpose Family History No Family History Records FoundNo Family History Records FoundNo Family History Records Found Advance Directives No Advanced Directives Records FoundNo Advanced Directives Records FoundNo Advanced Directives Records Found Health Concerns Infection Onset Date Last Indicated Resolved Time COVID-19 Rule-Out 06/25/2023 06/25/2023 Problem Noted Date Diagnosed Date [facility] Education - COMMON 07/11/2023 Education - [place] 07/11/2023 Problem Noted Date Diagnosed Date [facility] Education - COMMON 07/11/2023 Education - [place] 07/11/2023 Problem Noted Date Diagnosed Date [facility] Education - [facility] 07/11/2023 [place] - [place] 07/11/2023 Problem Noted Date Diagnosed Date [facility] - [facility] 07/11/2023 [place] - [place] 07/11/2023 Problem Noted Date Diagnosed Date [facility] - [facility] 07/11/2023 [place] - [place] 07/11/2023 Problem Noted Date Diagnosed Date [facility] - [facility] 07/11/2023 [place] - [place] 07/11/2023 Problem Noted Date Diagnosed Date [facility] - [place] 07/11/2023 [place] - [place] 07/11/2023 Problem Noted Date Diagnosed Date [facility] - [place] 07/11/2023 [place] - [place] 07/11/2023 Problem Noted Date Diagnosed Date [facility] - [place] 07/11/2023 Education - [place] 07/11/2023 Problem Noted Date Diagnosed Date [facility] - [place] 07/11/2023 Education - [place] 07/11/2023 Problem Noted Date Diagnosed Date [facility] - [place] 07/11/2023 Education - [place] 07/11/2023 Problem Noted Date Diagnosed Date [facility] - [place] 07/11/2023 Education - [place] 07/11/2023 Problem Noted Date Diagnosed Date [facility] - [place] 07/11/2023 Education - [place] 07/11/2023 Problem Noted Date Diagnosed Date [facility] - [place] 07/11/2023 Education - [place] 07/11/2023 Problem Noted Date Diagnosed Date [facility] - [place] 07/11/2023 Education - [place] 07/11/2023 Problem Noted Date Diagnosed Date [facility] - [place] 07/11/2023 Education - [place] 07/11/2023 Reason for Referral Specialty Diagnoses / Procedures Referred By Contindigo t Referred To Contact Diagnoses Abnormal maternal glucose tolerance, antepartum Procedures CONSULT TO GESTATIONAL/ ASSOCIATE PROFESSOR OF FORESTRY OFFICE/OUTPATIENT [facility] 60 MINUTES Manuela Luz MD [address] [place] [address] Referral ID Status Reason Start Date Expiration Date V isits Requested Visits Authorized [id number] Closed PCP Requested Referral Auto-Generated Referral 11/19/2023 11/18/2024 1 1 Specialty Diagnoses / Procedures Referred By Contac t Referred To Contact Nutrition Diagnoses Abnormal maternal glucose tolerance, antepartum Procedures CONSULT TO NUTRITION THERAPY MEDICAL NUTRITION ASSMT&IVNTJ INDIV EACH 15 W[place] MEDICAL NUTRITION ASSMT&IVNTJ INDIV EACH 15 [place] MEDICAL NUTRITION ASSMT&IVNTJ INDIV EACH 15 [place] MEDICAL NUTRITION ASSMT&IVNTJ INDIV EACH 15 [place] Manuela Luz MD [address] [place] [address] Referral ID Status Reason Start Date Expiration Date Visits Requested Visits Authorized [id number] Authorized PCP Requested Referral 11/19/2023 11/18/2024 1 1 Additional Source Comments Source Comments (unrecognize d section and content) In the event this informatio n is protected by the Federal Confidentiality of Alcohol and Drug Abuse Patient Records regulations: The Federal rules restrict any use of the information to criminally investigate or prosecute any alcohol or drug abuse patient.[facility] CampusIn the event this information is protected by the Federal Confidentiality of Alcohol and Drug Abuse Patient Records regulations: The Federal rules restrict any use of the information to criminally investigate or prosecute any alcohol or drug abuse patient.[facility] CampusIn the event this information is protected by the Federal Confidentiality of Alcohol and Drug Abuse Patient Records regulations: The Federal rules restrict any use of the information to criminally investigate or prosecute any alcohol or drug abuse patient.[facility] CampusIn the event this information is protected by the Federal Confidentiality of Alcohol and Drug Abuse Patient Records regulations: The Federal rules restrict any use of the information to criminally investigate or prosecute any alcohol or drug abuse patient.[facility] CampusIn the event this information is protected by the Federal Confidentiality of Alcohol and Drug Abuse Patient Records regulations: The Federal rules restrict any use of the information to criminally investigate or prosecute any alcohol or drug abuse patient.[facility] CampusIn the event this information is protected by the Federal Confidentiality of Alcohol and Drug Abuse Patient Records regulations: The Federal rules restrict any use of the information to criminally investigate or prosecute any alcohol or drug abuse patient.[facility] CampusIn the event this information is protected by the Federal Confidentiality of Alcohol and Drug Abuse Patient Records regulations: The Federal rules restrict any use of the information to criminally investigate or prosecute any alcohol or drug abuse patient.[facility] CampusIn the event this information is protected by the Federal Confidentiality of Alcohol and Drug Abuse Patient Records regulations: The Federal rules restrict any use of the information to criminally investigate or prosecute any alcohol or drug abuse patient.[facility] CampusIn the event this information is protected by the Federal Confidentiality of Alcohol and Drug Abuse Patient Records regulations: The Federal rules restrict any use of the information to criminally investigate or prosecute any alcohol or drug abuse patient.[facility] CampusIn the event this information is protected by the Federal Confidentiality of Alcohol and Drug Abuse Patient Records regulations: The Federal rules restrict any use of the information to criminally investigate or prosecute any alcohol or drug abuse patient.[facility] CampusIn the event this information is protected by the Federal Confidentiality of Alcohol and Drug Abuse Patient Records regulations: The Federal rules restrict any use of the information to criminally investigate or prosecute any alcohol or drug abuse patient.[facility] CampusIn the event this information is protected by the Federal Confidentiality of Alcohol and Drug Abuse Patient Records regulations: The Federal rules restrict any use of the information to criminally investigate or prosecute any alcohol or drug abuse patient.[facility] CampusIn the event this information is protected by the Federal Confidentiality of Alcohol and Drug Abuse Patient Records regulations: The Federal rules restrict any use of the information to criminally investigate or prosecute any alcohol or drug abuse patient.[facility] CampusIn the event this information is protected by the Federal Confidentiality of Alcohol and Drug Abuse Patient Records regulations: The Federal rules restrict any use of the information to criminally investigate or prosecute any alcohol or drug abuse patient.[facility] ClinicIn the event this information is protected by the Federal Confidentiality of Alcohol and Drug Abuse Patient Records regulations: The Federal rules restrict any use of the information to criminally investigate or prosecute any alcohol or drug abuse patient.[facility] CampusIn the event this information is protected by the Federal Confidentiality of Alcohol and Drug Abuse Patient Records regulations: The Federal rules restrict any use of the information to criminally investigate or prosecute any alcohol or drug abuse patient.[facility] CampusIn the event this information is protected by the Federal Confidentiality of Alcohol and Drug Abuse Patient Records regulations: The Federal rules restrict any use of the information to criminally investigate or prosecute any alcohol or drug abuse patient.[facility] CampusIn the event this information is protected by the Federal Confidentiality of Alcohol and Drug Abuse Patient Records regulations: The Federal rules restrict any use of the information to criminally investigate or prosecute any alcohol or drug abuse patient.[facility] CampusIn the event this information is protected by the Federal Confidentiality of Alcohol and Drug Abuse Patient Records regulations: The Federal rules restrict any use of the information to criminally investigate or prosecute any alcohol or drug abuse patient.[facility] CampusIn the event this information is protected by the Federal Confidentiality of Alcohol and Drug Abuse Patient Records regulations: The Federal rules restrict any use of the information to criminally investigate or prosecute any alcohol or drug abuse patient.[facility] CampusIn the event this information is protected by the Federal Confidentiality of Alcohol and Drug Abuse Patient Records regulations: The Federal rules restrict any use of the information to criminally investigate or prosecute any alcohol or drug abuse patient.[facility] CampusIn the event this information is protected by the Federal Confidentiality of Alcohol and Drug Abuse Patient Records regulations: The Federal rules restrict any use of the information to criminally investigate or prosecute any alcohol or drug abuse patient.[facility] CampusIn the event this information is protected by the Federal Confidentiality of Alcohol and Drug Abuse Patient Records regulations: The Federal rules restrict any use of the information to criminally investigate or prosecute any alcohol or drug abuse patient.[facility] CampusIn the event this information is protected by the Federal Confidentiality of Alcohol and Drug Abuse Patient Records regulations: The Federal rules restrict any use of the information to criminally investigate or prosecute any alcohol or drug abuse patient.[facility] CampusIn the event this information is protected by the Federal Confidentiality of Alcohol and Drug Abuse Patient Records regulations: The Federal rules restrict any use of the information to criminally investigate or prosecute any alcohol or drug abuse patient.[facility] CampusIn the event this information is protected by the Federal Confidentiality of Alcohol and Drug Abuse Patient Records regulations: The Federal rules restrict any use of the information to criminally investigate or prosecute any alcohol or drug abuse patient.[facility] CampusIn the event this information is protected by the Federal Confidentiality of Alcohol and Drug Abuse Patient Records regulations: The Federal rules restrict any use of the information to criminally investigate or prosecute any alcohol or drug abuse patient.[facility] CampusIn the event this information is protected by the Federal Confidentiality of Alcohol and Drug Abuse Patient Records regulations: The Federal rules restrict any use of the information to criminally investigate or prosecute any alcohol or drug abuse patient.[facility] CampusIn the event this information is protected by the Federal Confidentiality of Alcohol and Drug Abuse Patient Records regulations: The Federal rules restrict any use of the information to criminally investigate or prosecute any alcohol or drug abuse patient.[facility] CampusIn the event this information is protected by the Federal Confidentiality of Alcohol and Drug Abuse Patient Records regulations: The Federal rules restrict any use of the information to criminally investigate or prosecute any alcohol or drug abuse patient.[facility] CampusIn the event this information is protected by the Federal Confidentiality of Alcohol and Drug Abuse Patient Records regulations: The Federal rules restrict any use of the information to criminally investigate or prosecute any alcohol or drug abuse patient.[facility] CampusIn the event this information is protected by the Federal Confidentiality of Alcohol and Drug Abuse Patient Records regulations: The Federal rules restrict any use of the information to criminally investigate or prosecute any alcohol or drug abuse patient.[facility] CampusIn the event this information is protected by the Federal Confidentiality of Alcohol and Drug Abuse Patient Records regulations: The Federal rules restrict any use of the information to criminally investigate or prosecute any alcohol or drug abuse patient.[facility] CampusIn the event this information is protected by the Federal Confidentiality of Alcohol and Drug Abuse Patient Records regulations: The Federal rules restrict any use of the information to criminally investigate or prosecute any alcohol or drug abuse patient.[facility] CampusIn the event this information is protected by the Federal Confidentiality of Alcohol and Drug Abuse Patient Records regulations: The Federal rules restrict any use of the information to criminally investigate or prosecute any alcohol or drug abuse patient.[facility] CampusIn the event this information is protected by the Federal Confidentiality of Alcohol and Drug Abuse Patient Records regulations: The Federal rules restrict any use of the information to criminally investigate or prosecute any alcohol or drug abuse patient.[facility] CampusIn the event this information is protected by the Federal Confidentiality of Alcohol and Drug Abuse Patient Records regulations: The Federal rules restrict any use of the information to criminally investigate or prosecute any alcohol or drug abuse patient.[facility] CampusIn the event this information is protected by the Federal Confidentiality of Alcohol and Drug Abuse Patient Records regulations: The Federal rules restrict any use of the information to criminally investigate or prosecute any alcohol or drug abuse patient.[facility] CampusIn the event this information is protected by the Federal Confidentiality of Alcohol and Drug Abuse Patient Records regulations: The Federal rules restrict any use of the information to criminally investigate or prosecute any alcohol or drug abuse patient.[facility] CampusIn the event this information is protected by the Federal Confidentiality of Alcohol and Drug Abuse Patient Records regulations: The Federal rules restrict any use of the information to criminally investigate or prosecute any alcohol or drug abuse patient.[facility] Reason for Visit (unrecogniz ed section and content) Reason Comments ADD/ADHD Reason Onset Date Comments Refill Request 04/21/2022 Reason Onset Date Comments Refill Request 05/31/2022 Reason Onset Date Comments Refill Request 06/05/2022 Reason Comments F/U 6 months Depression - would l alize to discontinue meds Reason Comments Headache chills, dizziness x 3 days Reason Comments Recheck 3 month follow up Reason Comments Pain Pt reported pain bet ween shoulder blades rated 4, irregular menses bilateral breast pain. Reason Comments Results Reason Comments Returning Patient's Call Orders Reason Comments Abdominal Pain x 3 days after eatin g and drinking and now pain just comes with no eating Reason Comments Follow Up Reason Comments Medication Follow-up Reason Comments Orders Reason Comments Vaginal Problem Vaginal pain and dis comfort, nausea x 10 hrs Reason Comments Results BV Reason Comments test Only 1 day late Reason Comments Sore Throat ST, SALAZAR, congestion a nd fatigue x 1 day-COVID exposure Specialty Diagnoses / Procedures Referred By Contac t Referred To Contact PNEUMATIC PRESS HAND Diagnoses READ Procedures OB ULTRASOUND POC Shu Reeves APRN.CNM [address] [place] [address] Shu Reeves APRN.CN [address] [place] [address] Referral ID Status Reason Start Date Expiration Date V isits Requested Visits Authorized [id number] Pending Review 07/11/2023 10/09/2023 1 1 Reason Comments 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 A ssessment Form Reason Comments Question (OB Question) Reason Onset Date Comments Care 08/04/2023 Reason Comments Radiology US Specialty Diagnoses / Procedures Referred By Contac t Referred To Contact [facility] Diagnoses Breast pain Procedures US BREAST LTD LEFT US BREAST UNI REAL TIME WITH IMAGE LIMITED Edwige Goldsmith APRN.EXECUTIVE ADVISOR [address] [place] [address] [facility] [address] [place] [address] Referral ID Status Reason Start Date Expiration Date V isits Requested Visits Authorized [id number] Closed Auto-Generate d Referral 05/13/2023 06/11/2024 1 1 Reason Onset Date Comments Care 09/03/2023 Reason Onset Date Comments Refill Request 09/06/2023 Reason Comments Low Back Pain migrating into right thigh down leg x 1.5 hours Reason Comments Headache nausea, fatigue x 6a m Reason Onset Date Comments Care 11/17/2023 Specialty Diagnoses / Procedures Referred By Contac t Referred To Contact Diagnoses Abnormal maternal glucose tolerance, antepartum Procedures CONSULT TO GESTATIONAL/ ASSOCIATE PROFESSOR OF FORESTRY OFFICE/OUTPATIENT NEW [facility]IGH MDM 60 MINUTES Manuela Luz MD [address] [place] [address] Referral ID Status Reason Start Date Expiration Date V isits Requested Visits Authorized [id number] Closed PCP Requested Referral Auto-Generated Referral 11/19/2023 11/18/2024 1 1 Reason Comments Assessment Patient Education Specialty Diagnoses / Procedures Referred By Contac t Referred To Contact Nutrition Diagnoses Abnormal maternal glucose tolerance, antepartum Procedures CONSULT TO NUTRITION THERAPY MEDICAL NUTRITION ASSMT&IVNTJ INDIV EACH 15 WY MEDICAL NUTRITION ASSMT&IVNTJ INDIV EACH 15 W[place] MEDICAL NUTRITION ASSMT&IVNTJ INDIV EACH 15 W[place] MEDICAL NUTRITION ASSMT&IVNTJ INDIV EACH 15 WY Manuela Luz MD [address] [place] [address] Referral ID Status Reason Start Date Expiration Date V isits Requested Visits Authorized [id number] Closed PCP Requested Referral 11/19/2023 11/18/2024 1 1 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 Comments 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 - Other PRAF Reason Onset Date Comments Care 12/01/2023 Reason Comments Refill Request Care Teams (unrecognized sec tion and content) Tipple Greaser Relationship Specialty Start Date End Date Kishor Rock MD [address] [place] [address] PCP - General Internal Medicine 03/25/16 Tipple Greaser Relationship Specialty Start Date End Date Kishor Rock MD [address] [place] [address] PCP - General Internal Medicine 03/25/16 Tipple Greaser Relationship Specialty Start Date End Date Kishor Rock MD [address] [place] [address] PCP - General Internal Medicine 03/25/16 Tipple Greaser Relationship Specialty Start Date End Date Kishor Rock MD [address] [place] [address] PCP - General Internal Medicine 03/25/16 Tipple Greaser Relationship Specialty Start Date End Date Kishor Rock MD [address] [facility] [place] [address] PCP - General Internal Medicine 03/25/16 Tipple Greaser Relationship Specialty Start Date End Date Kishor Rock MD [address] [facility] [place] [address] PCP - General Internal Medicine 03/25/16 Tipple Greaser Relationship Specialty Start Date End Date Kishor Rock MD [address] [facility] [place] [address] PCP - General Internal Medicine 03/25/16 Tipple Greaser Relationship Specialty Start Date End Date Kishor Rock MD [address] [place] [address] PCP - General Internal Medicine 03/25/16 Tipple Greaser Relationship Specialty Start Date End Date Kishor Rock MD [address] [facility] [address] PCP - General Internal Medicine 03/25/16 Tipple Greaser Relationship Specialty Start Date End Date Kishor Rock MD [address] [place] [address] PCP - General Internal Medicine 03/25/16 Tipple Greaser Relationship Specialty Start Date End Date Kishor Rock MD [address] [place] [address] PCP - General Internal Medicine 03/25/16 Tipple Greaser Relationship Specialty Start Date End Date Kishor Rock MD [address] [place] [address] PCP - General Internal Medicine 03/25/16 Tipple Greaser Relationship Specialty Start Date End Date Kishor Rock MD [address] [place] [address] PCP - General Internal Medicine 03/25/16 Tipple Greaser Relationship Specialty Start Date End Date Kishor oRck MD [address] [place] [address] PCP - General Internal Medicine 03/25/16 Tipple Greaser Relationship Specialty Start Date End Date Kishor Rock MD [address] [place] [address] PCP - General Internal Medicine 03/25/16 Tipple Greaser Relationship Specialty Start Date End Date Kishor Rock MD [address] [place] [address] PCP - General Internal Medicine 03/25/16 Tipple Greaser Relationship Specialty Start Date End Date Kishor Rock MD [address] [place] [address] PCP - General Internal Medicine 03/25/16 Tipple Greaser Relationship Specialty Start Date End Date Kishor Rock MD [address] [place] [address] PCP - General Internal Medicine 03/25/16 Tipple Greaser Relationship Specialty Start Date End Date Kishor Rock MD [address] [place] [address] PCP - General Internal Medicine 03/25/16 Tipple Greaser Relationship Specialty Start Date End Date Kishor Rock MD [address] [place] [address] PCP - General Internal Medicine 03/25/16 Tipple Greaser Relationship Specialty Start Date End Date Kishor Rock MD [address] [place] [address] PCP - General Internal Medicine 03/25/16 Tipple Greaser Relationship Specialty Start Date End Date Kishor Rock MD [address] [place] [address] PCP - General Internal Medicine 03/25/16 Tipple Greaser Relationship Specialty Start Date End Date Kishor Rock MD [address] [place] [address] PCP - General Internal Medicine 03/25/16 Tipple Greaser Relationship Specialty Start Date End Date Kishor Rock MD [address] [place] [address] PCP - General Internal Medicine 03/25/16 Tipple Greaser Relationship Specialty Start Date End Date Kishor Rock MD [address] [place] [address] PCP - General Internal Medicine 03/25/16 Tipple Greaser Relationship Specialty Start Date End Date Kishor Rock MD [address] [place] [address] PCP - General Internal Medicine 03/25/16 Tipple Greaser Relationship Specialty Start Date End Date Kishor Rock MD [address] [place], [place] [id number] PCP - General Internal Medicine 03/25/16 Care Team (unrecognized sect ion and content) Care Team Personnel Name: PHYSICIAN, NONE Position: Physician Member Role: Primary Care Physician Care Team Related Persons Name: OMAR DAVIS INFORMATION SOURCE (unrecogn ized section and content) DATE CREATED AUTHOR AUTHOR'S ORGANNAYE ATION 01/22/2023 [facility] DATE CREATED AUTHOR AUTHOR'S ORGANNAYE ATION 12/12/2023 [facility] FOR RECORDS PERTAINING TO PATIENTS WHO ARE OR HAVE BEEN ENROLLED IN A CHEMICAL DEPENDENCY/SUBSTANCEABUSE PROGRAM, SOME INFORMATION MAY BE OMITTED. This clinical summary was aggregated from multiple sources. Caution should be exercised in using it in the provision of clinical care. This summary normalizes information from multiple sources, and as a consequence, information in this document may materially change the coding, format and clinical context of patient data. In addition, data may be omitted in some cases. CLINICAL DECISIONS SHOULD BE BASED ON THE PRIMARY CLINICAL RECORDS. [employer] provides no warranty or guarantee of the accuracy or completeness of information in this document.
[2023-12-13] MEDS: Sucralfate 1 GM Tablet PO (22:50)
[2023-12-13 23:03] LABS: Anion Gap 6 (5-15); Anisocytosis RARE; BUN 9 mg/dL (7-18); BUN/Creat Ratio 19.5 RATIO (10-20); Chloride 110 mmol/L (98-107); Creatinine, Serum 0.46 mg/dL (0.55-1.02); EST Glomerular Filtration Rate 167 mL/min (>60); Est Glom Filt Rate - Afr Amer 203 mL/min (>60); Estimated Creatinine Clearance 165.14 ml/min; Glucose 138 mg/dL (74-106); Macrocytosis RARE; Platelet Estimate ADEQUATE (ADEQ); Potassium 3.4 mmol/L (3.5-5.1); Red Cell Morphology N CHROM NORMAL (NORM C&C); Sodium Level 139 mmol/L (136-145); Troponin-I HS (w/2H Reflex) 4 pg/mL (3.0-54.0)
[2023-12-13 23:45] VITALS: BP 113/65; PULSE 76; RESP 13; O2SAT 100
[2023-12-14 00:15] VITALS: BP 115/59; PULSE 77; RESP 12; O2SAT 100
[2023-12-14 00:41] LABS: Reflex Troponin-HS? (from REC) Y
[2023-12-14 00:45] VITALS: BP 100/45; PULSE 72; RESP 10; O2SAT 100
[2023-12-14 01:04] VITALS: BP 97/51; PULSE 75; RESP 13; O2SAT 100
[2023-12-14] MEDS: Mag Hydrox/Al Hydrox/Simeth 30 ML UDC PO (01:10)
[2023-12-14 01:36] LABS: Troponin-I HS 5 pg/mL (3.0-54.0)
[2023-12-14 01:51] VITALS: BP 106/67; PULSE 75; RESP 14; TEMP 37; O2SAT 100
[2023-12-16 07:59] LABS: Pathologist Review Reviewed
== END 2023-12-14 03:16 | disposition home or self-care (01) ==
PROVIDERS: Emergency Provider Emergency Medicine; PCP Internal Medicine; Visit Provider Emergency Medicine
DX: O99.891 Other specified diseases and conditions complicating pregnancy (principal); O99.013 Anemia complicating pregnancy, third trimester; O99.113 Other diseases of the blood and blood-forming organs and certain disorders involving the immune mechanism complicating pregnancy, third trimester; R07.9 Chest pain, unspecified; K21.9 Gastro-esophageal reflux disease without esophagitis; O99.613 Diseases of the digestive system complicating pregnancy, third trimester; D72.829 Elevated white blood cell count, unspecified; O99.343 Other mental disorders complicating pregnancy, third trimester; F32.A Depression, unspecified; Z3A.32 32 weeks gestation of pregnancy; O99.333 Smoking (tobacco) complicating pregnancy, third trimester; F17.290 Nicotine dependence, other tobacco product, uncomplicated
CPT/HCPCS: 71045; 80048; 84484; 85025; 93005; 96360; 96361; 99285; J7040; A4216

== ENCOUNTER 2024-02-02 22:07 | Inpatient (IN) | payer MEDICAID, SELFPAY ==
[2024-02-02 21:50] VITALS: BMI 34.4
[2024-02-02 21:56] VITALS: BP 114/67; PULSE 90; RESP 16; TEMP 37.4; O2SAT 99
[2024-02-02 22:25] LABS: ROM Internal Control Test YES-OK TO RESULT pt. (Internal QC)
[2024-02-02 22:26] LABS: ROM Patient Test POSITIVE (Negative)
[2024-02-02 22:34] LABS: Absolute Lymphocyte Count 3.03 X10^3/uL (0.83-4.51); Absolute Neutrophil Count 10.7 X10^3/uL (2.0-7.7); Basophil% 0.6 % (0-1); Eosinophil# 0.38 X10^3/uL; Eosinophils% 2.4 % (0-5); Hematocrit 35.5 % (37-47); Lymphocyte # 3.03 X10^3/ul (0.83-4.51); Lymphocyte % 19.3 % (19-41); Mean Corp Hgb Conc 33.8 g/dL (32-36); Mean Corpuscular Hgb 29.7 pg (27.0-32.0); Mean Corpuscular Volume 87.9 fL (81-99); Mean Platelet Vol. 10.1 fl (6.2-12.0); Monocyte# 1.26 X10^3/uL; NRBC Flagged by Analyzer 0 % (0-5); Neutrophil # 10.66 X10^3/uL (2.7-7.7); Platelet Count 375 K/mm3 (150-450); RBC Distribution Width CV 13.7 % (11.6-14.6); RBC Distribution Width SD 43.9 fl (35.1-43.9); Red Blood Count 4.04 M/mm3 (4.2-5.4); White Blood Count 15.7 K/mm3 (4.4-11.0)
[2024-02-02 23:08] LABS: Syphilis Antibodies Non-reactive
[2024-02-02 23:14] VITALS: BP 126/80; PULSE 103; PULSE 109; PULSE 90; RESP 18; TEMP 36.9; O2SAT 97
[2024-02-02 23:58] VITALS: BP 117/68; PULSE 104; RESP 18; TEMP 36.7; O2SAT 97
[2024-02-03] VITALS (52 sets, daily range): BP systolic 94–137; BP diastolic 49–97; PULSE 72–122; RESP 16–24; TEMP 36.2–38.7; O2SAT 89–100
[2024-02-03 00:18] LABS: Bedside Glucose 113 mg/dL (74-106)
[2024-02-03 00:18] LABS: Bedside Glucose 123 mg/dL (74-106)
[2024-02-03] MEDS: Ondansetron 4 MG/2 ML Vial IV (00:46)
[2024-02-03] MEDS: 0.9% Saline Lock 10 ML Syringe IV (00:46)
[2024-02-03 01:04] LABS: Bedside Glucose 100 mg/dL (74-106)
[2024-02-03] MEDS: LACTATED RINGERS 500 ML 999 ML IV ×2 (01:17→02:55)
[2024-02-03] MEDS: Lactated Ringers 1,000 ML 200 ML IV (01:45)
[2024-02-03] MEDS: fentaNYL-bupivacaine (epidural) 100 ML BAG EPIDURAL (01:58)
--- NOTE | 2024-02-03 03:01 | PN.OBGYN_ITS ---
Subjective Subjective Epidural placed and prolonged heart rate deceleration. Taken back to OR and called to hospital. heart rate recovery. Epidural effective. Objective Data Objective Data Vital Signs: Vital Signs Temp Pulse Resp BP Pulse Ox 98.0 F 87 18 136/63 H 100 02/02/24 23:58 02/03/24 02:14 02/02/24 23:58 02/03/24 02:21 02/03/24 02:14 Weight: 176 lb 2.389 oz Body Mass Index (BMI) 34.4 Intake & Output: Intake and Output for Last 24 Hours 02/01/24 02/02/24 02/03/24 23:59 23:59 23:59 Output Total 100 / 100 Balance -100 / -100 Lab / Micro Data 02/02/24 22:20 Labs: Laboratory Results - last 24 hr 02/02/24 22:05: Vag Amniotic Fld Detect POSITIVE H 02/02/24 22:20: WBC 15.7 H, RBC 4.04 L, Hgb 12.0, Hct 35.5 L, MCV 87.9, MCH 29.7, MCHC 33.8, RDW Std Deviation 43.9, RDW Coeff of Jamil 13.7, Plt Count 375, MPV 10.1, Immature Gran % (Auto) 1.700 H, Neut % (Auto) 68.0, Lymph % (Auto) 19.3, [place] % (Auto) 8.0, Eos % (Auto) 2.4, Baso % (Auto) 0.6, Absolute Neuts (auto) 10.7 H, Absolute Lymphs (auto) 3.03, Nucleated RBC % 0, Syphilis Total Ab Non-reactive 02/02/24 22:26: POC Glucose 123 H 02/02/24 23:33: POC Glucose 113 H 02/03/24 00:41: POC Glucose 100 Physical Exam Manual OB Exam: presentation cephalic, dilated 7cm, effaced 90 and station -1 NST FHR Rate Baby A Baseline: 130 Variability:: Minimal Accelerations:: None Decelerations:: Variable FHR Category:: Category II Uterine Activity:: every 2-3 minutes strong Assessment & Plan (1) Active labor at term: (2) SROM (spontaneous rupture of membranes): (3) GDM, class A1: (4) History of hemorrhage: (5) History of depression: (6) Anxiety: (7) Depression: PLAN: Plan 1) collaborative physician, notified of patient status and of above assessment and plan. Ok to proceed with continued labor after recovery 2) Labor progressing, continue with expectant management 3) category 2 FHT, positional changes
--- NOTE | 2024-02-03 03:01 | PCM.HP.OB ---
HPI - General General Date of Admission: 02/02/24 HPI Narrative AIDEN FRENCH, is a 33 F who presents [facility]: PFSH [facility] Medical History (Updated 02/03/24 @ 03:05 by Shu Reeves CNM) Anxiety Depression Gestational diabetes Infertility Ovarian cyst depression hemorrhage Home Medications docosahexaenoic acid 200 mg capsule ( DHA) mg PO DAILY 08/07/23 [History Last Taken Unknown] ondansetron HCl 4 mg tablet 4 mg nausea 08/07/23 [History Last Taken Unknown] sertraline 25 mg tablet 25 mg PO DAILY anxiety depr 08/07/23 [History Last Taken 02/01/24] Allergy/AdvReac Type Severity Reaction Status Date / Time No Known Allergies Allergy Verified 02/02/24 21:50 Social History Smoking Status: Former smoker substance use type: does not use History Elective abortions Hx Para 2 Spontaneous abortions Hx # Term Pregnancies Ectopic pregnancies Hx # Pregnancies Multiple births # of living children ROS Constitutional Constitutional: Reports systems reviewed and no addt'l complaints, except as documented; Denies headache(s) Eyes Eyes: Denies acute decrease in peripheral vision, blurry vision or change in vision ENT HEENT: Reports systems reviewed and no addt'l complaints, except as documented Cardiovascular Cardiovascular: Denies chest pain or dizziness Respiratory/Chest Respiratory/Chest: Denies cough, dyspnea, dyspnea on exertion, shortness of breath at rest or shortness of breath with exertion Gastrointestinal Gastrointestinal: Denies abdominal pain, diarrhea, nausea or vomiting Genitourinary Genitourinary: Denies abdominal discomfort Musculoskeletal Musculoskeletal: Denies limited range of motion Integumentary Integumentary: Reports systems reviewed and no addt'l complaints, except as documented Neurologic Neurologic: Reports systems reviewed and no addt'l complaints, except as documented Psychiatric Psychiatric: Reports systems reviewed and no addt'l complaints, except as documented Endocrine Endocrinology: Reports systems reviewed and no addt'l complaints, except as documented Hematologic/Lymphatic Hematologic/Lymphatic: Reports systems reviewed and no addt'l complaints, except as documented Allergic/Immunologic Allergic/Immunologic: Reports systems reviewed and no addt'l complaints, except as documented Vital Signs Vital Signs Vital Signs: 02/02/24 21:56 02/02/24 21:56 02/02/24 21:56 Temperature Temperature Source Temporal Pulse Rate 90 Respiratory Rate Blood Pressure 114/67 BP Systolic 114 BP Diastolic 67 Pulse Ox 02/02/24 21:56 02/02/24 21:56 02/02/24 21:56 Temperature 99.4 F H Temperature Source Pulse Rate Respiratory Rate 16 Blood Pressure BP Systolic BP Diastolic Pulse Ox 99 02/02/24 23:14 02/02/24 23:14 02/02/24 23:14 Temperature Temperature Source Pulse Rate 90 109 H Respiratory Rate Blood Pressure 126/80 H BP Systolic 126 BP Diastolic 80 Pulse Ox 02/02/24 23:14 02/02/24 23:14 02/02/24 23:14 Temperature Temperature Source Temporal Pulse Rate 103 H Respiratory Rate Blood Pressure BP Systolic BP Diastolic Pulse Ox 97 02/02/24 23:14 02/02/24 23:14 02/02/24 23:14 Temperature 98.5 F Temperature Source Pulse Rate Respiratory Rate 18 Blood Pressure BP Systolic BP Diastolic Pulse Ox 97 02/02/24 23:58 02/02/24 23:58 02/02/24 23:58 Temperature Temperature Source Temporal Pulse Rate 104 H Respiratory Rate Blood Pressure 117/68 BP Systolic 117 BP Diastolic 68 Pulse Ox 02/02/24 23:58 02/02/24 23:58 02/02/24 23:58 Temperature 98.0 F Temperature Source Pulse Rate Respiratory Rate 18 Blood Pressure BP Systolic BP Diastolic Pulse Ox 97 02/03/24 00:15 02/03/24 00:15 02/03/24 00:20 Temperature Temperature Source Pulse Rate 110 H 83 Respiratory Rate Blood Pressure BP Systolic BP Diastolic Pulse Ox 97 02/03/24 00:20 02/03/24 00:25 02/03/24 00:25 Temperature Temperature Source Pulse Rate 92 Respiratory Rate Blood Pressure BP Systolic BP Diastolic Pulse Ox 98 98 02/03/24 00:30 02/03/24 00:30 02/03/24 01:14 Temperature Temperature Source Pulse Rate 87 Respiratory Rate Blood Pressure 120/76 BP Systolic 120 BP Diastolic 76 Pulse Ox 98 02/03/24 01:14 02/03/24 01:14 02/03/24 01:44 Temperature Temperature Source Pulse Rate 78 104 H Respiratory Rate Blood Pressure BP Systolic BP Diastolic Pulse Ox 94 02/03/24 01:44 02/03/24 01:46 02/03/24 01:46 Temperature Temperature Source Pulse Rate 93 Respiratory Rate Blood Pressure 120/71 BP Systolic 120 BP Diastolic 71 Pulse Ox 98 02/03/24 01:49 02/03/24 01:49 02/03/24 01:50 Temperature Temperature Source Pulse Rate 117 H 122 H Respiratory Rate Blood Pressure BP Systolic BP Diastolic Pulse Ox 98 02/03/24 01:50 02/03/24 01:54 02/03/24 01:54 Temperature Temperature Source Pulse Rate 107 H Respiratory Rate Blood Pressure BP Systolic BP Diastolic Pulse Ox 89 97 02/03/24 01:57 02/03/24 01:57 02/03/24 01:59 Temperature Temperature Source Pulse Rate 109 H 102 H Respiratory Rate Blood Pressure 137/97 H BP Systolic 137 BP Diastolic 97 Pulse Ox 02/03/24 01:59 02/03/24 02:03 02/03/24 02:03 Temperature Temperature Source Pulse Rate 106 H Respiratory Rate Blood Pressure 114/57 L BP Systolic 114 BP Diastolic 57 Pulse Ox 100 02/03/24 02:04 02/03/24 02:04 02/03/24 02:06 Temperature Temperature Source Pulse Rate 98 Respiratory Rate Blood Pressure 118/60 BP Systolic 118 BP Diastolic 60 Pulse Ox 99 02/03/24 02:06 02/03/24 02:09 02/03/24 02:09 Temperature Temperature Source Pulse Rate 102 H 101 H Respiratory Rate Blood Pressure BP Systolic BP Diastolic Pulse Ox 100 02/03/24 02:11 02/03/24 02:11 02/03/24 02:14 Temperature Temperature Source Pulse Rate 88 87 Respiratory Rate Blood Pressure 103/51 L BP Systolic 103 BP Diastolic 51 Pulse Ox 02/03/24 02:14 02/03/24 02:21 Temperature Temperature Source Pulse Rate Respiratory Rate Blood Pressure 136/63 H BP Systolic 136 BP Diastolic 63 Pulse Ox 100 Weight Weight: 176 lb 2.389 oz Body Mass Index (BMI) 34.4 Physical Exam Const alert and oriented x3 General Appearance: cooperative Orientation / Consciousness: awake, oriented to person, oriented to place and oriented to time Exam Limitations: no limitations HEENT normocephalic Head and Scalp: normal to inspection, normocephalic and atraumatic Face and Sinus: normal facial exam Eyes General Eye: normal appearance of both eyes Neck full ROM Chest Chest: symmetrical chest wall rise Resp normal respiratory effort and normal air movement Auscultation: clear to auscultation bilaterally Cardio regular rate, regular rhythm, S1 normal heart sound, S2 normal heart sound, no murmurs, no rub, no gallops and no clicks GI normal to inspection, nondistended, normoactive bowel sounds and non-tender appearance of the vagina normal Bladder / Kidney Exam: no CVA tenderness Manual OB Exam: estimated gestational size appropriate, presentation cephalic, dilated 4, effaced 60, station -2 and other srom, clear fluid Back/Spine normal ROM Extremity normal to inspection and full ROM Skin no rashes or lesions noted Neuro oriented x3, CN's II-XII intact bilaterally and moves all extremities Sensorium / Orientation: awake, alert and oriented to person Motor Exam: clonus absent Deep Tendon Reflexes: Rt Patellar (L4): 2+ and Lt Patellar (L4): 2+ Labs Labs Labs: Blood Type Pending Antibody Screen Pending Hct 35.5 % (37-47) L Hgb 12.0 g/dL (12.0-15.0) Syphilis Total Ab Non-reactive Hep Bs Antigen Negative (Negative) Hepatitis C Ab (EIA) <0.1 s/co ratio (0.0-0.9) HIV 1&2 Antibody Non-Reactive (Nonreactive) GBS negative Rubella immune Assessment & Plan (1) Active labor at term: (2) SROM (spontaneous rupture of membranes): (3) GDM, class A1: (4) History of hemorrhage: (5) Depression: (6) Anxiety: (7) History of depression: PLAN: Plan 1) Admit to labor and delivery 2) ROM Plus positive 3) Routine labs 4) Continuous EFM 5) Pain management upon request 6) GBS negative 7) [facility] physician, notified of patient status and of above assessment and plan
[2024-02-03] MEDS: Oxytocin 15 Units/NS 250ml 15 UNITS/250 ML IV.SOLN 83 UNITS IV (04:38)
[2024-02-03] MEDS: Oxytocin 10 UNITS/ML Vial IM (04:38)
--- NOTE | 2024-02-03 04:49 | EX.PCM.OBRPT ---
Assessment & Plan (1) Vaginal delivery: Maternal Data Information CHAY[facility]O Calculator Estimated Delivery Date Method Current WG Current Estimate 02/11/24 Manual 38w 6d Vaginal Delivery Maternal Presentation Maternal Presentation: Active Labor and Spontaneous Rupture of Membranes Operative Information Date of Procedure: 02/03/24 Pre-Operative Diagnosis: SROM, Active labor at term Post-Operative Diagnosis: Surgery / Procedure Performed: Spontaneous Vaginal Delivery Type of Anesthesia: Epidural Estimated Blood Loss: 250ml Time of Delivery: 04:30 Findings Description of Procedure: Progressed to complete with urge to push. Epidural for pain management. of viable male infant over intact perineum. APGARS 8,9 respectively. head delivered with body immediately forthcoming. Placed on maternal abdomen, strong cry. Mouth and nares suctioned for secretions. Pitocin started for active 3rd stage management. Cord doubly clamped and cut by FOB after pulsations ceased, delayed cord clamping. Placenta delivered intact via hoffmann, 3 vessel cord intact. Perineum inspected and revealed intact. Fundus firm and hemostasis achieved. EBL 200ml. Mom and baby stable, planning to breastfeed. Family bonding well. notified of delivery. Presentation: Vertex and EDUARDO Amniotic Membrane Rupture Type: Spontaneous Amniotic Fluid Description: Clear Placental Delivery Description: Spontaneous Placenta Disposition: [facility] Cord Vessel Description: 3 Vessels Cord Entanglement: None Infant A Gender: Male (1 minute): 8 (5 minute): 9 Delayed Cord Clamping: Yes Post Vaginal Delivery Medications Given After Delivery: IV Pitocin and IM Pitocin Episiotomy Description: None Laceration: None Complication Complications: None
[2024-02-03 05:20] LABS: Bedside Glucose 99 mg/dL (74-106)
[2024-02-03 05:54] LABS: Bedside Glucose 105 mg/dL (74-106)
[2024-02-03] MEDS: Ibuprofen 600 MG Tablet PO ×2 (06:17→11:07)
[2024-02-03] MEDS: Acetaminophen 500 MG Tablet 1000 MG PO (07:18)
[2024-02-04] MEDS: Ibuprofen 600 MG Tablet PO (01:25)
[2024-02-04 05:26] VITALS: BP 118/76; PULSE 65; RESP 16; TEMP 36.1
[2024-02-04 05:37] LABS: Absolute Lymphocyte Count 4.67 X10^3/uL (0.83-4.51); Basophil# 0.14 X10^3/uL; Basophil% 0.7 % (0-1); Eosinophil# 0.39 X10^3/uL; Eosinophils% 1.9 % (0-5); Hematocrit 35.1 % (37-47); Hemoglobin 11.7 g/dL (12.0-15.0); Lymphocyte # 4.67 X10^3/ul (0.83-4.51); Lymphocyte % 22.4 % (19-41); Mean Corp Hgb Conc 33.3 g/dL (32-36); Mean Corpuscular Hgb 30.2 pg (27.0-32.0); Mean Corpuscular Volume 90.5 fL (81-99); Mean Platelet Vol. 9.7 fl (6.2-12.0); Monocyte# 1.37 X10^3/uL; Monocyte% 6.6 % (0-10); NRBC Flagged by Analyzer 0 % (0-5); Neutrophil % 67.2 % (47-70); POSITIVE MORPHOLOGY YES; Platelet Count 333 K/mm3 (150-450); RBC Distribution Width CV 14.1 % (11.6-14.6); RBC Distribution Width SD 46.1 fl (35.1-43.9); Red Blood Count 3.88 M/mm3 (4.2-5.4); White Blood Count 20.8 K/mm3 (4.4-11.0)
[2024-02-04 06:31] LABS: Differential Indicated SCAN CRITERIA MET
[2024-02-04 06:32] LABS: Differential Comment SCANNED
[2024-02-04 08:00] VITALS: BP 111/74; PULSE 69; RESP 18; TEMP 36.4; O2SAT 97
--- NOTE | 2024-02-04 08:38 | DS.PCM_ITS ---
Providers Date of Admission: 02/02/24 Primary Care Physician: Dr. Tata Rock MD Reason For Visit: VAG Diagnosis Discharge Diagnosis (1) Vaginal delivery: Status: Acute Code(s): O80 - Encounter for full-term uncomplicated delivery (2) Care and examination of lactating mother: Status: Acute Code(s): Z39.1 - Encounter for care and examination of lactating mother Medications at Discharge Home Medications docosahexaenoic acid 200 mg capsule ( DHA) mg PO DAILY 08/07/23 sertraline 25 mg tablet 25 mg PO DAILY anxiety depr 08/07/23 Hospital Course Operations None Procedures None Summary of Care Provided Minutes Spent on Discharge: 15 Hospital Course: Patient had . Hospital course was uneventful. Physical Exam Narrative Patient seen at bedside. independently. Denies pain. Ambulating and voiding without difficulty. Desires discharge home today. Const alert and no apparent distress General Appearance: cooperative and comfortable Exam Limitations: no limitations HEENT normocephalic Eyes General Eye: normal appearance of both eyes Neck full ROM General: normal visual inspection Chest Chest: symmetrical chest wall rise Resp normal respiratory effort and normal air movement Effort and Inspection: symmetric chest movement Auscultation: clear to auscultation bilaterally Cardio regular rate and regular rhythm GI normal to inspection, nondistended, normoactive bowel sounds Back/Spine normal ROM Extremity full ROM and no calf tenderness General Extremity: normal exam except as noted Skin no rashes or lesions noted Neuro CN's II-XII intact bilaterally Psych mental status grossly normal Weight / BMI Weight Weight: 176 lb 2.389 oz Body Mass Index (BMI) 34.4 ABG / Lab / Microbiology Data 02/04/24 05:28 Laboratory: Laboratory Results - last 24 hr 02/02/24 22:20: Blood Type A POSITIVE, Antibody Screen NEGATIVE 02/04/24 05:28: WBC 20.8 H, RBC 3.88 L, Hgb 11.7 L, Hct 35.1 L, MCV 90.5, MCH 30.2, MCHC 33.3, RDW Std Deviation 46.1 H, RDW Coeff of Jamil 14.1, Plt Count 333, MPV 9.7, Immature Gran % (Auto) 1.200 H, Neut % (Auto) 67.2, Lymph % (Auto) 22.4, [place] % (Auto) 6.6, Eos % (Auto) 1.9, Baso % (Auto) 0.7, Absolute Neuts (auto) 14.0 H, Absolute Lymphs (auto) 4.67 H, Nucleated RBC % 0, Differential Comment SCANNED Meaningful Use Info Meaningful Use Meaningful Use Diagnoses (Choose all that apply): None applicable Ischemic Stroke Statin Dosing Therapy Reference: STATIN DOSE THERAPY REFERENCE: * Patients > 75 years receive moderate or high dose statin therapy. * Patients 75 years or YOUNGER should receive HIGH intensity statin dose unless contraindicated. You will be required to document reason for non-treatment if statin daily dose does not meet guidelines. HIGH DOSE STATIN THERAPY DAILY Atorvastatin > than or = to 40 mg Rosuvastatin > than or = to 20 mg Amlodipine + Atorvastatin > than or = to 2.5/40 mg Ezetimibe + Simvastatin 10/80 mg Simvastatin 80mg Discharge Plan Admission Admit Date/Time: 02/02/24 22:07 Primary Reason for Your Visit: Labor and Delivery Attending Provider: Shu Reeves Primary Care Provider: Tata Rock Discharge Orders/Prescriptions Prescriptions: Continued sertraline 25 mg tablet 25 mg PO DAILY Patient Comments: take 1 tablet by mouth once daily OKAY TO START WITH 1/2 TABLET D... (REFER TO PRESCRIPTION NOTES). DHA 200 mg capsule PO DAILY Discontinued ondansetron HCl 4 mg tablet 4 mg Patient Comments: take 1 tablet by mouth every 8 hours if needed for nausea and vomiting Referrals / Follow Up: Tata Rock MD [Primary Care Provider] - Disposition Disposition (needs filled in before D/C Order can be placed): Home, Self Care
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
--- NOTE | 2024-02-04 12:41 | CASEMGMT ---
Labor and Delivery Geology Faculty Member MOB completed [place] Depression Scale due to history with depression. Her score was a 0. Support and education provided. MOB receptive to sw involvement and support. FOB states that he would be able to recognize when MOB is struggling, but asked MOB for guidance on how he can best support her during this period. Manny Rojas, BUSINESS SYSTEMS CONSULTANT, [employer]SE [employer]
[2024-02-05 01:29] LABS: Bedside Glucose 92 mg/dL (74-106)
== END 2024-02-04 11:50 | disposition home or self-care (01) | DRG 560 ==
LOC: WPOUT 22:12 → WP 22:12
PROVIDERS: Admitting Provider Advanced Practice Midwife; PCP Internal Medicine; Visit Provider Advanced Practice Midwife
DX: O24.429 Gestational diabetes mellitus in childbirth, unspecified control (principal); Z37.0 Single live birth; Z87.891 Personal history of nicotine dependence; Z3A.38 38 weeks gestation of pregnancy
CPT/HCPCS: 59025; 59050; 82962; 84112; 85025; 86780; 86850; 86900; 86901; 99221; J7120; A4216; G0378; J2405

== ENCOUNTER 2024-10-19 07:30 | Emergency (ER) | payer MEDICAID, SELFPAY ==
[2024-10-19 07:30] VITALS: BP 112/73; PULSE 105; RESP 20; TEMP 36.1; O2SAT 98; BMI 35.9
--- NOTE | 2024-10-19 08:19 | ED.VIS.GI ---
HPI HPI - GI History of Present Illness Chief Complaint: Abd Pain Informant: patient Abdominal Pain/Flank Pain Onset: Today Context: Sudden Onset Timing: Continuous Quality: Aching and Cramping Location: Epigastric, RUQ and LUQ Worsened by: Nothing Relieved by: Nothing Nausea/Vomiting/Emesis GI Symptom: Positive for Nausea and Vomiting Quality: Positive for Nonbilious; Negative for Blood streaks, Coffee ground or Hematemesis Diarrhea/Melena/Hematochezia GI Symptom: Positive for Diarrhea; Negative for Melena or Hematochezia Stool Quality: Positive for Watery Associated Symptoms Associated Symptoms: Negative for Dysuria, Frequency or Hematuria LMP: Current Narrative Narrative: Patient presents with nausea, vomiting, and diarrhea that began today. Patient also admits to some upper abdominal pain. Patient states it is aching and cramping. Patient states nothing makes it better and nothing makes it worse. Patient denies any hematemesis or coffee-ground emesis. Patient admits to watery diarrhea. Patient denies any melena or hematochezia. Patient states she is currently on her menstrual period. Patient denies any urinary complaints. Patient denies any fevers or chills. [facility] Medical History Care and examination of lactating mother Vaginal delivery History of depression History of hemorrhage GDM, class A1 SROM (spontaneous rupture of membranes) Active labor at term Infertility hemorrhage depression Gestational diabetes Anxiety Depression Ovarian cyst Home Medications ?Medication ?Instructions ?Recorded ?Last Taken ?Type docosahexaenoic acid 200 mg mg PO DAILY 08/07/23 Unknown History capsule ( DHA) sertraline 25 mg tablet 25 mg PO DAILY anxiety depr 08/07/23 02/01/24 History ondansetron 4 mg disintegrating 4 mg PO Q8H PRN PRN Nausea #10 tabs 10/19/24 Unknown Rx tablet Allergy/AdvReac Type Severity Reaction Status Date / Time No Known Allergies Allergy Verified 02/02/24 21:50 Social History Smoking Status: Former smoker substance use type: does not use ROS ROS ED Constitutional Constitutional ED: Denies chills or fever(s) Eyes Eyes: Denies blurry vision or change in vision ENT ENT ED: Denies rhinorrhea or sore throat Cardiovascular Cardiovascular: Denies chest pain or palpitations Respiratory/Chest Respiratory/Chest: Denies cough or dyspnea Gastrointestinal Gastrointestinal: Reports abdominal pain, diarrhea, nausea and vomiting; Denies melena Genitourinary Genitourinary ED: Denies dysuria or hematuria Musculoskeletal Musculoskeletal: Reports neck pain; Denies back pain Integumentary Denies abscess or rash Neurologic Neurologic: Denies headache(s) or weakness Allergic/Immunologic Allergic/Immunologic ED: Denies mouth swelling or urticaria EXAM Physical Exam Const Vital Signs: 10/19/24 07:30 10/19/24 09:30 Temperature 96.9 F L Temperature Source Temporal Pulse Rate 105 H 78 Respiratory Rate 20 H 14 Blood Pressure 112/73 126/78 H Blood Pressure Mean 86 94 Pulse Ox 98 98 Oxygen Delivery Method Room Air Room Air Positive well nourished and well developed General Appearance ED: well developed and NAD HEENT Reports moist mucous membranes normocephalic and atraumatic Neck supple and no JVD Resp normal respiratory effort and clear to auscultation bilaterally Cardio regular rhythm Rate: tachycardic GI non-distended Palpation: soft and tender epigastric, LUQ and RUQ; Negative for guarding or rebound tenderness present Extremity General Extremety ED: Negative for edema or tenderness General Extremity: Negative for edema Neuro CN's II-XII intact bilaterally, moves all extremities and no sensory deficits noted Sensorium / Orientation: alert Motor Exam: strength 5/5 throughout Psych mental status grossly normal and thought process normal MDM MDM MDM Narrative Medical decision making narrative: Differential diagnosis includes viral illness, gastroenteritis, dehydration, electrolyte abnormality, pancreatitis, urinary tract infection, and . CBC will be obtained to assess for leukocytosis and anemia. Comprehensive metabolic profile will be obtained to assess for hepatic function, renal function, and electrolyte abnormality. Lipase will be obtained to assess for pancreatitis. Urinalysis will be obtained to assess for urinary tract infection and hematuria. Serum hCG will be obtained to assess for . History & Record Review Additional record(s) reviewed:: Prior labs Lab Data Attestation: I reviewed the patient's lab results. Lab results narrative: CBC was reviewed. There is a mild leukocytosis of 16.6. This is consistent with previous results. Comprehensive metabolic profile was reviewed and was essentially within normal limits. Lipase was reviewed and was normal at 23. Serum hCG was reviewed and was negative. Urinalysis was reviewed. There is no evidence of urinary tract infection. Occult blood was 250 with 10-25 red blood cells. (Patient is currently on her menstrual cycle.) Labs: Laboratory Results - last 24 hr 10/19/24 10/19/24 08:11 10:20 WBC 16.6 H RBC 4.74 Hgb 13.7 Hct 41.8 MCV 88.2 MCH 28.9 MCHC 32.8 RDW Std Deviation 40.0 RDW Coeff of Jamil 12.5 Plt Count 371 MPV 9.3 Immature Gran % (Auto) 0.500 Neut % (Auto) 91.9 H Lymph % (Auto) 3.0 L Roberts % (Auto) 3.7 Eos % (Auto) 0.7 Baso % (Auto) 0.2 Absolute Neuts (auto) 15.2 H Absolute Lymphs (auto) 0.50 L Nucleated RBC % 0 Sodium 140 Potassium 4.2 Chloride 112 H Carbon Dioxide 25.0 Anion Gap 3 L BUN 25 H Creatinine 0.86 Estim Creat Clear Calc 89.87 Est GFR (MDRD) Af Amer 99 Est GFR (MDRD) Non-Af 82 BUN/Creatinine Ratio 29.2 H Glucose 110 H Calcium 8.9 Total Bilirubin 0.80 AST 14 L ALT 23 Alkaline Phosphatase 94 Total Protein 7.7 Albumin 3.6 Globulin 4.1 Albumin/Globulin Ratio 0.9 Lipase 23 Serum , Qual NEGATIVE Urine Color Yellow Urine Clarity Cloudy Urine pH 6.0 Ur Specific Musella 1.020 Urine Protein 15 H Urine Glucose (UA) Normal Urine Ketones 15 H Urine Occult Blood 250 H Urine Nitrite Negative Urine Bilirubin Negative Urine Urobilinogen Normal Ur Leukocyte Esterase Negative Urine RBC 10-25 SEEN Urine WBC 0 SEEN Ur Squamous Epith Cells 0-5 SEEN Urine Bacteria 1+ Urine Mucus 1+ Treatment and Re-Evaluation :: Patient was given IV fluids and Zofran. Patient was feeling better on reevaluation. Patient was advised of her findings. Patient was given a prescription for Zofran. Patient was instructed to start with a liquid diet and advance as tolerated. Patient was instructed to follow-up with her primary care physician in 5 to 7 days. Patient was instructed return if worse in any way. Patient understood and was agreeable with the plan. All questions were answered. Discharge Plan Triage Chief Complaint: Abd Pain ED Provider: Schwiger,Jorge Dx/Rx/DC Orders Clinical Impression: Nausea, vomiting, and diarrhea, Body mass index (BMI) of 30 to 39 in adult Instructions: ED Abdominal Pain Unkn Cause Fem, ED Vomiting (Adult) Prescriptions: New ondansetron 4 mg tablet,disintegrating 4 mg PO Q8H PRN PRN (Reason: Nausea) Qty: 10 0RF No Action sertraline 25 mg tablet 25 mg PO DAILY Patient Comments: take 1 tablet by mouth once daily OKAY TO START WITH 1/2 TABLET D... (REFER TO PRESCRIPTION NOTES). DHA 200 mg capsule PO DAILY Primary Care Provider: Tata Rock Referrals: Tata Rock MD [Primary Care Provider] - 5-7 Days Print Language: Hungarian Disposition Disposition: Home, Self Care
[2024-10-19] MEDS: 0.9% Normal Saline (1000mL) 1,000 ML 999 ML IV (08:30)
[2024-10-19] MEDS: Ondansetron 4 MG/2 ML Vial IV (08:30)
[2024-10-19 08:46] LABS: Absolute Neutrophil Count 15.2 X10^3/uL (2.0-7.7); Basophil# 0.04 X10^3/uL; Basophil% 0.2 % (0-1); Eosinophil# 0.11 X10^3/uL; Eosinophils% 0.7 % (0-5); Hematocrit 41.8 % (37-47); Hemoglobin 13.7 g/dL (12.0-15.0); Mean Corp Hgb Conc 32.8 g/dL (32-36); Mean Corpuscular Hgb 28.9 pg (27.0-32.0); Mean Corpuscular Volume 88.2 fL (81-99); Mean Platelet Vol. 9.3 fl (6.2-12.0); Monocyte# 0.62 X10^3/uL; Monocyte% 3.7 % (0-10); NRBC Flagged by Analyzer 0 % (0-5); Neutrophil # 15.22 X10^3/uL (2.7-7.7); Neutrophil % 91.9 % (47-70); POSITIVE DIFFERENTIAL YES; Platelet Count 371 K/mm3 (150-450); RBC Distribution Width CV 12.5 % (11.6-14.6); Red Blood Count 4.74 M/mm3 (4.2-5.4); White Blood Count 16.6 K/mm3 (4.4-11.0)
[2024-10-19 08:59] LABS: Internal QC Validated? YES +Cl - CLEAR BKGD; Pregnancy, Serum, hCG Quali. NEGATIVE Negative
[2024-10-19 09:01] LABS: ALB/GLOB Ratio 0.9 RATIO (0.9-2.4); AST(SGOT) 14 U/L (15-37); Alanine Aminotransfer ALT/SGPT 23 U/L (13-56); Albumin, Serum 3.6 g/dL (3.2-5.0); Alkaline Phosphatase 94 U/L (45-117); Anion Gap 3 (5-15); BUN 25 mg/dL (7-18); BUN/Creat Ratio 29.2 RATIO (10-20); Calcium,Total 8.9 mg/dL (8.5-10.1); Chloride 112 mmol/L (98-107); Creatinine, Serum 0.86 mg/dL (0.55-1.02); EST Glomerular Filtration Rate 82 mL/min (>60); Est Glom Filt Rate - Afr Amer 99 mL/min (>60); Estimated Creatinine Clearance 89.87 ml/min; Globulin 4.1 g/dL (2.2-4.2); Glucose 110 mg/dL (74-106); Lipase 23 U/L (13-75); Potassium 4.2 mmol/L (3.5-5.1); Protein, Total 7.7 g/dL (6.4-8.2); Sodium Level 140 mmol/L (136-145)
[2024-10-19 09:30] VITALS: BP 126/78; PULSE 78; RESP 14; O2SAT 98
[2024-10-19 10:23] LABS: White Blood Cells 0 SEEN /hpf (0-5)
[2024-10-19 10:25] LABS: Color, Urine Yellow (Yellow); Glucose, Dipstick Normal (Normal); Ketone-Dipstick 15 mg/dl (Negative); Leukocyte Esterase-Dipstick Negative /ul (Negative); Nitrite-Dipstick Negative (Negative); Occult Blood-Urine 250 /ul (Negative); Protein-Dipstick 15 mg/dl (Negative); Urine Bilirubin Dipstick Negative (Negative); Urine Clarity Cloudy (Clear); Urine Urobilinogen Normal (Normal)
[2024-10-19 10:32] LABS: Bacteria 1+ /hpf (None Seen); Mucous, Urine 1+ /hpf (<or=2+); Red Blood Cells-Urine 10-25 SEEN /hpf (0-5); Squamous Epithelial Cells - UA 0-5 SEEN /hpf (5-10)
[2024-10-19 11:00] VITALS: BP 126/76; PULSE 64; RESP 18; O2SAT 98
== END 2024-10-19 11:40 | disposition home or self-care (01) ==
PROVIDERS: Emergency Provider Emergency Medicine; PCP Internal Medicine; Visit Provider Emergency Medicine
DX: R11.2 Nausea with vomiting, unspecified (principal); Z87.891 Personal history of nicotine dependence; F41.9 Anxiety disorder, unspecified; F32.A Depression, unspecified; Z79.899 Other long term (current) drug therapy
CPT/HCPCS: 80053; 81001; 83690; 84703; 85025; 96361; 96374; 99283; A4216; J2405

== ENCOUNTER 2024-12-06 20:21 | Emergency (ER) | payer MEDICAID, SELFPAY ==
[2024-12-06 20:27] VITALS: BP 130/89; PULSE 99; RESP 18; TEMP 36.3; O2SAT 97
--- NOTE | 2024-12-06 21:12 | US_ITS ---
EXAM: VENOUS DUPLEX IMAG/LIMITED/UNI CLINICAL HISTORY: Left leg pain COMPARISON: None. TECHNIQUE: Grayscale color flow and doppler analysis of the left lower extremity. FINDINGS: There is no intraluminal echogenicity to suggest the presence of a deep venous thrombosis. Appropriate respiratory variation, augmentation and venous compression is noted. US/Venous Duplex Imag/Limited/Uni IMPRESSION: Limited study due to overlying cast. No deep venous thrombosis identified in the left extremity. Reading Location: [facility]
[2024-12-06 21:27] VITALS: BP 130/88; PULSE 72; RESP 18; O2SAT 99
--- NOTE | 2024-12-06 21:52 | EX.ED.DYSGE1 ---
HPI History of Present Illness Chief Complaint: Lower Extremity Injury Detail of Chief Complaint: Left lower extremity pain and swelling Informant: patient Onset/Context/Timing Onset: Days (Several days) Context: Sudden Onset Timing: Continuous and Waxes and wanes Quality: Worse when her foot is dangling Location: Left lower extremity Current Severity: Mild Maximum Severity: Severe Worsened by: When foot is in a dependent position Relieved by: Improves when elevated Associated Symptoms Associated Symptoms: Complains of pain and numbness to toes Narrative Narrative: Patient is a 34-year-old female. She is status post reconstructive surgery of her left ankle by orthopedist at the [facility]. She denies chest pain. She denies shortness of breath. She states the discomfort is worse and she feels her leg is swollen when her foot is dependent. She also complains of tingling in her toes. She has no other complaints. Prior similar symptoms: No Recent Illness/Hospitalization: Yes PFSH PFSH Medical History Care and examination of lactating mother Vaginal delivery History of depression History of hemorrhage GDM, class A1 SROM (spontaneous rupture of membranes) Active labor at term Infertility hemorrhage depression Gestational diabetes Anxiety Depression Ovarian cyst Home Medications ?Medication ?Instructions ?Recorded ?Last Taken ?Type sertraline 25 mg tablet 25 mg PO DAILY anxiety depr 08/07/23 02/01/24 History aspirin 81 mg tablet,delayed 81 mg PO DAILY 12/06/24 Unknown History release (Adult Low Dose Aspirin) famotidine 20 mg tablet 20 mg PO BID 12/06/24 Unknown History hydrocodone-acetaminophen 5-325mg 1 tab PO Q6H PRN PRN pain 12/06/24 Unknown History 5mg-325mg Allergy/AdvReac Type Severity Reaction Status Date / Time No Known Allergies Allergy Verified 12/06/24 20:27 Surgical History History of ankle surgery Social History household members: family housing: house Smoking Status: Former smoker substance use type: does not use ROS ROS ED Cardiovascular Cardiovascular: Denies chest pain, orthopnea, palpitations or paroxysmal nocturnal dyspnea Respiratory/Chest Respiratory/Chest: Denies cough, dyspnea, dyspnea on exertion, orthopnea or paroxysmal nocturnal dyspnea Integumentary Denies rash Neurologic Neurologic: Reports paresthesias LUE Hematologic/Lymphatic Hematologic/Lymphatic: Reports other Details: Patient is on a baby aspirin. He is on no anticoagulant. ; Denies systems reviewed and no addt'l complaints, except as documented EXAM Physical Exam Const Vital Signs: 12/06/24 20:27 Temperature 97.3 F L Temperature Source Temporal Pulse Rate 99 Respiratory Rate 18 Blood Pressure 130/89 H Blood Pressure Mean 102 Pulse Ox 97 Oxygen Delivery Method Room Air Positive well nourished and well developed General Appearance ED: well developed HEENT Reports moist mucous membranes Negative for trauma or tenderness Eyes PERRL and EOMs intact bilaterally General Eye ED: Negative for pale conjunctiva or scleral icterus Neck no lymphadenopathy, supple and no JVD Resp normal respiratory effort Cardio regular rate and regular rhythm Extremity Extremity Narrative: Capillary fill is normal. Toes do not look significantly swollen to me. Sensation is normal. She has pain in the mid calf popliteal fossa and medial left thigh. Neuro oriented x3 and CN's II-XII intact bilaterally Sensorium / Orientation: alert Psych mental status grossly normal Skin no rashes or lesions noted, no wounds and skin turgor normal MDM MDM MDM Narrative Medical decision making narrative: Differential diagnosis is discomfort pain due to recent surgery and not elevating her properly. Because she has pain along the deep venous system a venous duplex study was ordered to rule out DVT. There is no concern for PE at this point since she has no cardiac respiratory symptoms. A venous duplex study was obtained. Radiography Diagnostic Testing: Venous duplex study per tech is negative for clot. Patient was informed of this. Patient was discharged to home. She was instructed to elevate her foot and specifically that her toes have to be above her nose. Discharge Plan Triage Chief Complaint: Lower Extremity Injury ED Provider: Raul Light Dx/Rx/DC Orders Clinical Impression: Post-op pain, Dependent edema Instructions: ED Lymphedema Prescriptions: No Action sertraline 25 mg tablet 25 mg PO DAILY Patient Comments: take 1 tablet by mouth once daily OKAY TO START WITH 1/2 TABLET D... (REFER TO PRESCRIPTION NOTES). hydrocodone-acetaminophen 5-325 mg tablet 1 tab PO Q6H PRN PRN (Reason: pain) famotidine 20 mg tablet 20 mg PO BID aspirin [Adult Low Dose Aspirin] 81 mg tablet,delayed release (DR/EC) 81 mg PO DAILY Primary Care Provider: Tata Rock Referrals: Tata Rock MD [Primary Care Provider] - As Needed Print Language: German Disposition Disposition: Home, Self Care
[2024-12-06 22:10] VITALS: BP 128/73; PULSE 76; RESP 18; TEMP 37.1; O2SAT 100
== END 2024-12-06 22:11 | disposition home or self-care (01) ==
PROVIDERS: Emergency Provider Emergency Medicine; PCP Internal Medicine; Visit Provider Emergency Medicine
DX: G89.18 Other acute postprocedural pain (principal); Z87.891 Personal history of nicotine dependence; R60.9 Edema, unspecified; F41.9 Anxiety disorder, unspecified; F32.A Depression, unspecified; Z79.899 Other long term (current) drug therapy
CPT/HCPCS: 93971; 99282

== ENCOUNTER 2025-03-24 22:13 | Emergency (ER) | payer MEDICAID, SELFPAY ==
[2025-03-24 22:14] VITALS: BP 120/88; PULSE 73; RESP 18; TEMP 36.4; O2SAT 100; BMI 34.9
--- NOTE | 2025-03-24 22:20 | EKG12_ITS ---
Test Reason : CP Blood Pressure : */* mmHG Vent. Rate : 77 BPM Atrial Rate : 77 BPM P-R Int : 150 ms QRS Dur : 90 ms QT Int : 400 ms P-R-T Axes : 70 80 64 degrees QTcB Int : 452 ms Normal sinus rhythm with sinus arrhythmia Normal ECG Confirmed by Kenneth Villaseñor ([id number]), assistant editor ELENO PINTO ([id number]) on 03/29/2025 11:34:52 AM Referred By: SUZIE Confirmed By: Kenneth Villaseñor
[2025-03-24] MEDS: HYDROmorphone 1 MG/ML Syringe IV (22:36)
[2025-03-24] MEDS: 0.9% Normal Saline (1000mL) 1,000 ML 999 ML IV (22:36)
[2025-03-24 22:42] LABS: Absolute Lymphocyte Count 4.32 X10^3/uL (0.83-4.51); Absolute Neutrophil Count 5.8 X10^3/uL (2.0-7.7); Basophil# 0.12 X10^3/uL; Eosinophil# 0.43 X10^3/uL; Eosinophils% 3.8 % (0-5); Hematocrit 40.6 % (37-47); Hemoglobin 13.6 g/dL (12.0-15.0); Lymphocyte # 4.32 X10^3/ul (0.83-4.51); Lymphocyte % 37.7 % (19-41); Mean Corp Hgb Conc 33.5 g/dL (32-36); Mean Corpuscular Hgb 29.5 pg (27.0-32.0); Mean Corpuscular Volume 88.1 fL (81-99); Mean Platelet Vol. 9.7 fl (6.2-12.0); Monocyte# 0.76 X10^3/uL; Monocyte% 6.6 % (0-10); NRBC Flagged by Analyzer 0 % (0-5); Neutrophil # 5.81 X10^3/uL (2.7-7.7); Neutrophil % 50.7 % (47-70); Platelet Count 466 K/mm3 (150-450); RBC Distribution Width CV 12.8 % (11.6-14.6); RBC Distribution Width SD 41.2 fl (35.1-43.9); Red Blood Count 4.61 M/mm3 (4.2-5.4); White Blood Count 11.5 K/mm3 (4.4-11.0)
--- NOTE | 2025-03-24 22:45 | RAD_ITS ---
PROCEDURE: CHEST PA AND LATERAL 03/24/2025 REASON FOR EXAM: CHEST PAIN TECHNIQUE: CHEST PA AND LATERAL COMPARISON: 12/13/2023. FINDINGS: The lungs are expanded. There is no demonstrated parenchymal abnormality. There is no demonstrated pleural abnormality. Normal heart and pericardium. Normal mediastinum and jonny. Normal visualized pulmonary arteries. Normal visualized aortic arch and descending thoracic aorta. Normal visualized thoracic spine. Normal visualized ribs, clavicles, and shoulders. There is no demonstrated abnormality of the visualized soft tissue structures of the upper abdomen. RAD/Chest PA and Lateral IMPRESSION: No evidence for acute abnormality. Reading [facility]
--- OUTSIDE RECORDS SUMMARY | 2025-03-24 22:46 | XMS RPT_ITS | CCD ---
Author Organization [facility] Care Team Providers Care Superintendent Maintenance Name Role Phone Pranav ESTRADA, Kishor Primary Care Provider [phone] PHYSICIAN, NONE Primary Care Physician Unavailab cassy Hernandez MD, Kishor Primary Care Provider Kishor Hernandez MD Primary Care Provider [phone] GANTA, KISHOR Primary Care Unavailable HAI CHAVIRA Referring Unavailable Kishor Hernandez MD Primary Care Provider [phone] HILLARY CHANCE MD Attending Unavailable Patrizia Trevizo PA-C Unavailable Older RECORDS MANAGEMENT ENGINEER.Darya HERNANDEZ Unavailable Daly Hwang PA-C Unavailable Ganta, Kishor Primary Care Unavailable Raul Light Attending Unavailable Ganta, Kishor Primary Care Unavailable Jorge Hinson Attending Unavailable Ganta, Kishor Primary Care Unavailable Abelino Kessler Attending Unavailable Shu Reeves Attending Unavailable Shu Reeves Admitting Unavailable Ganta, Kishor Primary Care Unavailable EDGARDO RAMIREZ Attending Unavailable JOSE DELGADO Referring Unavailable GANTA, KISHOR Primary Care Unavailable DARYA QUIÑONES Referring Unavailable GANTA, KISHOR Primary Care Unavailable GANTA, KISHOR Primary Care Unavailable GANTA, KISHOR Primary Care Unavailable GANTA, KISHOR Attending Unavailable GANTA, KISHOR Primary Care Unavailable JOSE DELGADO Attending Unavailable GANTA, KISHOR Primary Care Unavailable GANTA, KISHOR Primary Care Unavailable ABEL THORNTON Referring Unavailable GANTA, KISHOR Primary Care Unavailable GANTA, KISHOR Primary Care Unavailable JOSE DELGADO Attending Unavailable GANTA, KISHOR Primary Care Unavailable DARYA QUIÑONES Attending Unavailable GANTA, KISHOR Primary Care Unavailable DARYA QUIÑONES Referring Unavailable GANTA, KISHOR Primary Care Unavailable DARYA QUIÑONES Attending Unavailable SELF Referring Unavailable [facility] Unavailable OLDER, DARYA Referring Unavailable [facility] Unavailable JOSE DELGADO Attending Unavailable OLDER DARYA Referring Unavailable [facility] Unavailable JOSE DELGADO Referring Unavailable [facility] Unavailable Medications Current Medications Medication Drug Class(es) Dates Sig (Normalized) Sig (Original) benzonatate 100 mg oral capsule (1 source) Non-narcotic Antitussive Start: 10-27-2024 End: 11-03-2024 take 1 capsule by mouth three times daily as needed for cough benzonatate (TESSALON PERLE) 100 mg capsule Indications: Viral illness Take 1 capsule by mouth three times a day as needed for cough for up to 7 days. 21 capsule 10/27/2024 11/03/2024 Active Blood-Glucose Meter (2 sources) Start: 11-19-2023 End: 11-20-2023 Blood-Glucose Meter Indications: Abnormal maternal glucose tolerance, antepartum 1 Each as directed for 1 day. 1 Each 0 11/19/2023 11/20/2023 Active Comment on above: 1 Each as directed f or 1 day. buPROPion hydrochloride 75 mg oral tablet (20 sources) Aminoketone Start: 03-18-2025 take 1 tablet by mouth twice daily buPROPion (WELLBUTRIN) 75 mg tablet Take 1 tablet by mouth two times a day. 30 tablet 2 03/18/2025 Active Start: 05-13-2023 End: 07-11-2023 take 1 tablet by mouth once daily buPROPion XL (WELLBUTRIN XL) 150 mg 24 hr tablet Indications: Anxiety , Panic attacks Take 1 tablet by mouth once daily. 30 tablet 2 05/13/2023 07/11/2023 Discontinued (Course of therapy completed) Start: 09-30-2021 End: 08-07-2023 take 75 mg by mouth once daily Bupropion Hcl Discontin ued 75 MG PO DAILY September 30, 2021 1:00am August 07, 2023 4:12pm Comment on above: Take 1 tablet by laurie once daily. cephalexin 500 mg oral capsule (1 source) Cephalosporin Antibacterial Start: End: take 1 capsule by mouth four times daily cephALEXin (KEFLEX) 500 mg capsule Take 1 capsule by mouth four times daily for 5 days. 20 capsule 0 05/01/2024 05/06/2024 Active ciprofloxacin 500 mg oral tablet (1 source) Quinolone Antimicrobial Start: End: take 1 tablet by mouth twice daily ciprofloxacin HCl (CIPRO) 500 mg tablet Indications: Infectious colitis Take 1 tablet by mouth two times a day for 7 days. 14 tablet 09/27/2024 10/04/2024 Active dicyclomine hydrochloride 10 mg oral capsule (6 sources) Anticholinergic Start: End: take 1 capsule by mouth three times daily as needed dicyclomine (BENTYL) 10 mg capsule Indications: Abdominal cramping Take 1 capsule by mouth three times a day as needed (abdominal cramping). 90 capsule 09/27/2024 10/27/2024 Active Start: 01-22-2023 take 1 capsule by mo ut every eight hours as needed dicyclomine (BENTYL) 10 mg capsule Take 1 capsule by mouth three times daily as needed. 30 capsule 1 01/22/2023 Active Comment on above: Take 1 capsule by mo [facility] three times daily as needed. docosahexaenoic acid 200 mg oral capsule (19 sources) Start: Docosahexanoic Acid 200 mg cap Take by mouth. 08/07/2023 Active metroNIDAZOLE 250 mg oral tablet (3 sources) Nitroimidazole Antimicrobial Start: End: take 1 tablet by mouth three times daily metroNIDAZOLE (FLAGYL) 250 mg tablet Indications: Rectal bleeding , Infectious colitis Take 1 tablet by mouth three times a day for 7 days. 21 tablet 09/27/2024 10/04/2024 Active Start: 05-29-2023 End: 06-05-2023 take 1 tablet by mouth twice daily metroNIDAZOLE (FLAGYL) 500 mg tablet Take 1 tablet by mouth twice daily for 7 days. 14 tablet 0 05/29/2023 06/05/2023 Comment on above: Take 1 tablet by [facility] twice daily for 7 days. omeprazole 40 mg delayed release oral capsule (11 sources) Proton Pump Inhibitor Start: End: 5 take 1 capsule by mouth twice daily omeprazole (PRILOSEC) 40 mg capsule Indications: Gastroesophageal reflux disease with esophagitis without hemorrhage , Hiatal hernia Take 1 capsule by mouth two times a day. 180 capsule 01/24/2025 04/24/2025 Active Start: 09-23-2024 End: 12-22-2024 take 1 capsule by mouth twice daily omeprazole (PRILOSEC) 40 mg capsule Indications: Gastroesophageal reflux disease with esophagitis without hemorrhage , Hiatal hernia Take 1 capsule by mouth two times a day. 180 capsule 09/23/2024 11/30/2024 Discontinued (Discontinued by Patient) oseltamivir 75 mg oral capsule (1 source) Neuraminidase Inhibitor Start: 10-27-2024 End: 11-01-2024 take 1 capsule by mouth twice daily oseltamivir (TAMIFLU) 75 mg capsule Indications: Viral illness Take 1 capsule by mouth two times a day for 5 days. 10 capsule 10/27/2024 11/01/2024 Active pantoprazole 40 mg delayed release oral tablet (8 sources) Proton Pump Inhibitor Start: 06-09-2024 End: 09-23-2024 take 1 tablet by mouth once daily before breakfast pantoprazole DR (PROTONIX) 40 mg tablet Take 1 tablet by mouth daily before breakfast. Take on empty stomach, 1/2 hr before meal. 30 tablet 1 06/09/2024 09/23/2024 Discontinued (Changing Therapy/Dosage Form) Start: 01-22-2023 take 1 tablet by laurie th once daily before breakfast pantoprazole DR (PROTONIX) 40 mg tablet Take 1 tablet by mouth daily before breakfast. Take on empty stomach, 1/2 hr before meal. 30 tablet 1 01/22/2023 Active Comment on above: Take 1 tablet by laurie th daily before breakfast. Take on empty stomach, 1/2 hr before meal. predniSONE 20 mg oral tablet (1 source) Start: 4 End: 4 take 2 tablets by mouth once daily at mealtime predniSONE (DELTASONE) 20 mg tablet Take 2 tablets by mouth once daily for 4 days. Take daily with food. 8 tablet 0 05/01/2024 05/05/2024 Active sertraline 25 mg oral tablet (20 sources) Serotonin Reuptake Inhibitor Start: 3 Sertraline Active MG August 07, 2023 12:00am Start: 04-02-2023 End: 11-04-2024 take 1 tablet by mouth once daily sertraline (ZOLOFT) 25 mg tablet Indications: 35 weeks gestation of (HCC) Take 1 tablet by mouth once daily. 30 tablet 5 11/05/2024 Active Comment on above: Take 1 tablet by laurie th once daily. Okay to start with a half a pill daily for the first week then increase to 1 full tab daily Take 1 tablet by laurie th once daily. sucralfate 100 mg/ml oral suspension (6 sources) Aluminum Complex Start: 4 End: 4 take 10 mL by mouth three times daily sucralfate (CARAFATE) 100 mg/mL suspension Indications: Gastroesophageal reflux disease, unspecified whether esophagitis present , Upper abdominal pain take 10 MILLILITERS ( 2 TEASPOONFULS ) by mouth three times a day for 14 days 420 mL 09/13/2024 09/23/2024 Discontinued (Course of therapy completed) Start: 07-29-2024 End: 08-12-2024 take 10 mL by mouth three times daily sucralfate (CARAFATE) 100 mg/mL suspension Indications: Gastroesophageal reflux disease, unspecified whether esophagitis present , Upper abdominal pain Take 10 mL by mouth three times a day for 14 days. 420 mL 07/29/2024 08/12/2024 Active triamcinolone acetonide 0.25 mg/ml topical cream (2 sources) Corticosteroid Start: 04-30-2024 End: 05-07-2024 triamcinolone (KENALOG) 0.025 % cream Indications: Itch Apply to affected area two times a day for 7 days. 15 g 0 04/30/2024 05/07/2024 Active Completed/Discontinued Medications Medication Drug Class(es) Dates Sig (Normalized) Sig (Original) acetaminophen 325 mg / HYDROcodone bitartrate 5 mg oral tablet (4 sources) Opioid Agonist Start: 08-04-2020 End: 08-07-2020 take 1 tablet by mouth every six hours as needed Hydrocodone-Acetamin ophen Discontinued 1 TABLET PO EVERY 6 HOURS NEEDED 07 08August 04, 2020 August 07, 2020 1:02am amoxicillin 875 mg / clavulanate 125 mg oral tablet (3 sources) Penicillin-class Antibacterial Start: 02-06-2024 End: 02-16-2024 amoxicillin-clavulan ate potassium (AUGMENTIN) 875-125 mg per tablet Take 1 tablet by mouth two times a day for 10 days. FOR 10 DAYS. 20 tablet 0 02/06/2024 02/16/2024 busPIRone hydrochloride 10 mg oral tablet (2 sources) Start: 03-18-2023 End: 05-13-2023 take 0.5-1 tablets by mouth three times daily as needed busPIRone (BUSPAR) 10 mg tablet Indications: Panic attacks , Anxiety Take 0.5-1 tablets by mouth three times daily as needed. 90 tablet 2 03/18/2023 05/13/2023 Discontinued Comment on above: Take 0.5-1 tablets b y mouth three times daily as needed. copper 313 mg drug implant (1 source) Copper-containing Intrauterine Device Start: 10-17-2020 End: 02-23-2021 copper (PARAGARD) 380 square mm intrauterine device 1 Intra Uterine Device by INTRAUTERINE route as directed. 1 Intra Uterine Device 10/17/2020 02/23/2021 Discontinued cyclobenzaprine hydrochloride 10 mg oral tablet (5 sources) Muscle Relaxant Start: 11-01-2021 End: 08-07-2023 take 10 mg by mouth three times daily Cyclobenzaprine Discontinued 10 MG PO THREE TIMES A DAY November 01, 2021 1:00am August 07, 2023 4:12pm Start: 12-27-2016 End: 12-22-2020 take 1 tablet by mouth every eight hours as needed cyclobenzaprine (FLEXERIL) 10 mg tablet Take 1 tablet by mouth three times daily as needed for Muscle Spasm. 30 tablet 12/27/2016 12/22/2020 Discontinued (Course of therapy completed) docusate sodium 100 mg oral capsule (20 sources) Start: 08-04-2023 End: 03-12-2024 take 1 capsule by mouth twice daily docusate sodium (COLACE) 100 mg capsule Indications: 12 weeks gestation of , Constipation, unspecified constipation type Take 1 capsule by mouth two times a day. 30 capsule 2 08/04/2023 03/12/2024 Discontinued Comment on above: Take 1 capsule by mo ut two times a day. escitalopram 10 mg oral tablet (16 sources) Serotonin Reuptake Inhibitor Start: 09-30-2021 End: 08-07-2023 take 10 mg by mouth once daily Escitalopram Oxalate Discontinued 10 MG PO DAILY September 30, 2021 1:00am August 07, 2023 4:12pm Comment on above: Take 1 tablet by laurie once daily. famotidine 20 mg oral tablet (20 sources) Histamine-2 Receptor Antagonist Start: 11-30-2024 End: 01-24-2025 take 1 tablet by mouth twice daily famotidine (PEPCID) 20 mg tablet Take 1 tablet by mouth two times a day. 60 tablet 3 11/30/2024 01/24/2025 Discontinued Start: 11-17-2023 End: 09-23-2024 take 1 tablet by mouth twice daily famotidine (PEPCID) 20 mg tablet Take 1 tablet by mouth two times a day. 60 tablet 1 04/28/2024 09/23/2024 Discontinued Comment on above: Take 1 tablet by laurie two times a day. hydrocortisone acetate 25 mg/ml / pramoxine hydrochloride 10 mg/ml rectal cream (8 sources) Corticosteroid Start: 09-27-20 End: 01-25-20 apply 2.5 doses rectal route three times daily hydrocortisone-pram oxine (ANALPRAM-HC) 2.5-1 % rectal cream Indications: Rectal bleeding by RECTAL route three times a day for 7 days. Use as directed. 30 g 09/27/2024 01/24/2025 Discontinued hydrOXYzine pamoate 25 mg oral capsule (20 sources) Antihistamine Start: 09-23-20 End: 03-12-20 take 1 capsule by mouth once daily at bedtime hydrOXYzine pamoate (VISTARIL) 25 mg capsule Take 1 capsule by mouth daily at bedtime. 30 capsule 3 09/23/2023 03/12/2024 Discontinued Comment on above: Take 1 capsule by mo [facility] daily at bedtime. ibuprofen 600 mg oral tablet (4 sources) Nonsteroidal Anti-inflammatory Drug Start: 11-01-19 End: 08-07-20 take 600 mg by mouth four times daily Ibuprofen Discontinued 600 MG PO 4 TIMES DAILY November 01, 2021 1:00am August 07, 2023 4:12pm 2 ml ketorolac tromethamine 30 mg/ml injection (3 sources) Nonsteroidal Anti-inflammatory Drug, Cyclooxygenase Inhibitor Start: 02-06-20 End: 02-06-20 keTORolac 60 mg injection (Toradol) Start: 02-06-2024 End: 02-06-2024 keTORolac 60 mg injection (T oradol) Start: 02-06-2024 End: 02-06-2024 keTORolac 60 mg injection (T oradol) LORazepam 0.5 mg oral tablet (2 sources) Benzodiazepine End: 05-13-2023 LORazepam (ATIVAN) 0.5 mg Take by mouth three times daily as needed. 0 05/13/2023 Discontinued Comment on above: Take by mouth three times daily as needed. multivit,calc,mins/ iron/folic (ONE-A-DAY WOMENS FORMULA ORAL) (20 sources) End: 06-09-2024 multivit,calc,mins/iro n/folic (ONE-A-DAY WOMENS FORMULA ORAL) Take by mouth. 06/09/2024 Discontinued multivit,calc,mi ns/iron/folic (ONE-A-DAY WOMENS FORMULA ORAL) Take by mouth. Active multivit,calc,mi ns/iron/folic (ONE-A-DAY WOMENS FORMULA ORAL) Take by mouth. 0 Active Comment on above: Take by mouth. ondansetron 4 mg oral tablet (20 sources) Serotonin-3 Receptor Antagonist Start: 08-07-2023 Ondansetron Hcl Active MG August 07, 2023 12:00am Start: 07-29-2023 End: 03-12-2024 take 1 tablet by mouth every eight hours as needed ondansetron (ZOFRAN) 4 mg tablet Take 1 tablet by mouth every 8 hours as needed for nausea/vomiting. 30 tablet 1 07/29/2023 03/12/2024 Discontinued Comment on above: Take 1 tablet by laurie every 8 hours as needed for nausea/vomiting. no.167-folic acid-dha 400 mcg- 25 mg chew (20 sources) Start: 3 End: take 1 tablet by mouth once daily no.167-folic acid-dha 400 mcg- 25 mg chew Indications: Positive urine test Take 1 tablet by mouth once daily. 90 tablet 3 06/06/2023 07/29/2024 Discontinued Start: 06-06-2023 take 1 tablet by laurie th once daily no.167-folic acid-dha 400 mcg- 25 mg chew Indications: Positive urine test Take 1 tablet by mouth once daily. 90 tablet 3 06/06/2023 Active Comment on above: Take 1 tablet by laurie th once daily. Problems Active Problems Problem Classification Problem Date Documented Da te Episodic/Chronic Abdominal pain (17 sources) Right upper quadrant pain; Translations: [Indigestion] Onset: 3 03-24-2016 Episodic Adjustment disorders (20 sources) Reactive depression (situational); Translations: [Adjustment disorder with depressed mood] Onset: 1 05-24-2021 Chronic Anxiety disorders (20 sources) Mixed anxiety and depressive disorder; Translations: [Anxiety disorder, unspecified] Onset: 1 10-31-2021 Chronic Attention-deficit, conduct, and disruptive behavior disorders (1 source) Attention deficit hyperactivity disorder; Translations: [Attention-deficit hyperactivity disorder, unspecified type] Chronic Conditions associated with dizziness or vertigo (1 source) Dizziness; Translations: [Dizziness and giddiness] Episodic Esophageal disorders (10 sources) Gastroesophageal reflux disease; Translations: [Gastro-esophageal reflux disease without esophagitis] Onset: 4 04-28-2024 Chronic Gastrointestinal hemorrhage (1 source) Rectal hemorrhage; Translations: [Hemorrhage of anus and rectum] 09-27-2024 Episodic Headache; including migraine (5 sources) Headache; Translations: [Headache] 09-30-2021 Episodic Intestinal infection (1 source) Infectious colitis; Translations: [Infectious gastroenteritis and colitis, unspecified] 09-27-2024 Episodic Malaise and fatigue (2 sources) Fatigue; Translations: [Other fatigue] 05-13-2023 Episodic Menstrual disorders (1 source) Irregular periods; Translations: [Irregular menstruation, unspecified] Chronic Mood disorders (3 sources) Recurrent major depressive disorder in partial remission co-occurrent with anxiety; Translations: [Major depressive disorder, recurrent, in partial remission] Chronic Nausea and vomiting (1 source) Nausea with vomiting, unspecified; Translations: [Nausea with vomiting, unspecified] Onset: 5 Episodic Nonmalignant breast conditions (2 sources) Pain of breast; Translations: [Mastodynia] 05-13-2023 Episodic Nutritional deficiencies (1 source) Vitamin D deficiency; Translations: [Vitamin D deficiency, unspecified] 05-13-2023 Chronic Other aftercare (5 sources) Patient encounter status; Translations: [Encounter for therapeutic drug level monitoring] 05-13-2023 Episodic Other complications of ; puerperium affecting management of mother (2 sources) Retained placenta with no hemorrhage with problem; Translations: [Retained placenta without hemorrhage] 02-06-2024 Episodic Other complications of ; puerperium affecting management of mother (2 sources) Puerperal endometritis; Translations: [Endometritis following delivery] 02-06-2024 Episodic Other complications of ; puerperium affecting management of mother (1 source) Retained portions of placenta and membranes, without hemorrhage; Translations: [Retained portions of placenta or membranes, without hemorrhage, condition or complication] 02-09-2024 Episodic Other complications of (2 sources) Heartburn; Translations: [Other specified related conditions, unspecified trimester] 11-17-2023 Episodic Other disorders of stomach and duodenum (2 sources) Indigestion 01-24-2025 Episodic Other gastrointestinal disorders (1 source) Constipation; Translations: [Constipation, unspecified] 08-04-2023 Episodic Other inflammatory condition of skin (1 source) Itching ; Translations: [Pruritus, unspecified] 04-30-2024 Episodic Other nervous system disorders (20 sources) Disturbance of attention; Translations: [Attention and concentration deficit] Onset: 2 10-31-2021 Chronic Other nervous system disorders (1 source) Numbness and tingling sensation of skin; Translations: [Anesthesia of skin] Episodic Other nervous system disorders (1 source) Other acute postprocedural pain; Translations: [Other acute postprocedural pain] Onset: Episodic Other and delivery including normal (17 sources) Urine test positive; Translations: [Encounter for test, result positive] 06-06-2023 Episodic Other screening for suspected conditions (not mental disorders or infectious disease) (1 source) Cancer cervix screening status; Translations: [Encounter for screening for malignant neoplasm of cervix] 07-14-2023 Episodic Other upper respiratory disease (20 sources) Rhinitis; Translations: [Chronic rhinitis] Onset: 5 11-02-2014 Chronic Other upper respiratory disease (1 source) Feeling of lump in throat; Translations: [Globus pharyngeus] 01-24-2025 Episodic Other upper respiratory infections (2 sources) Acute upper respiratory infection; Translations: [Acute upper respiratory infection, unspecified] Episodic Ovarian cyst (4 sources) Complex cyst of left ovary; Translations: [Other ovarian cyst, left side] 08-05-2020 Episodic Poisoning by nonmedicinal substances (1 source) Wound finding; Translations: [Toxic effect of venom of bees, accidental (unintentional), initial encounter] 05-01-2024 Episodic Residual codes; unclassified (1 source) Left [...] of ] 09-03-2023 Episodic Residual codes; unclassified (2 sources) Gestation period, 27 weeks; Translations: [27 weeks gestation of ] 11-17-2023 Episodic Residual codes; unclassified (1 source) Gestation period, 29 weeks; Translations: [29 weeks gestation of ] 12-01-2023 Episodic Residual codes; unclassified (2 sources) Gestation period, 31 weeks; Translations: [31 weeks gestation of ] 12-10-2023 Episodic Residual codes; unclassified (3 sources) Gestation period, 35 weeks; Translations: [35 weeks gestation of ] 01-12-2024 Episodic Residual codes; unclassified (1 source) Gestation period, 36 weeks; Translations: [36 weeks gestation of ] 01-19-2024 Episodic Residual codes; unclassified (2 sources) Gestation period, 38 weeks; Translations: [38 weeks gestation of ] 01-30-2024 Episodic Residual codes; unclassified (1 source) H/O: depression; Translations: [Personal history of other complications of , childbirth and the puerperium] 02-03-2024 Episodic Residual codes; unclassified (1 source) History of hemorrhage; Translations: [Personal history of other complications of , childbirth and the puerperium] 02-03-2024 Episodic Residual codes; unclassified (2 sources) Personal history of other complications of , childbirth and the puerperium; Translations: [Personal history of other genital system and obstetric disorders] 02-04-2024 Episodic Residual codes; unclassified (1 source) FH: premature coronary heart disease; Translations: [Family history of ischemic heart disease and other diseases of the circulatory system] 04-28-2024 Episodic Residual codes; unclassified (2 sources) Pain; Translations: [Pain, unspecified] 10-13-2024 Episodic Residual codes; unclassified (1 source) Early satiety; Translations: [Early satiety] 01-24-2025 Episodic Residual codes; unclassified (1 source) Early satiety; Translations: [Early satiety] Onset: Episodic Sprains and strains (4 sources) Strain of thoracic region; Translations: [Strain of muscle and tendon of unspecified wall of thorax, initial encounter] 11-09-2021 Episodic Unclassified (4 sources) No history of clinical finding in subject; Translations: [No significant past medical history] 08-04-2020 Unclassified (11 sources) [facility] - [facility]ON Onset: 3 07-11-2023 Unclassified (11 sources) Education - [place] Onset: 3 07-11-2023 Unclassified (2 sources) Normal labor; Translations: [Active labor at term] 02-03-2024 Unclassified (2 sources) Spontaneous rupture of membranes; Translations: [Spontaneous rupture of amniotic membranes] 02-03-2024 Viral infection (8 sources) Acute viral disease; Translations: [Viral infection, unspecified] 10-08-2021 Episodic Past or Other Problems Problem Classification Problem Date Documented Date Episodic/Chronic Abdominal hernia (18 sources) Gastroesophageal reflux disease with hiatal hernia; Translations: [Diaphragmatic hernia without obstruction or gangrene] Onset: 08-03-2024 08-03-2024 Episodic Cancer of cervix (20 sources) Abnormal cytological finding in specimen from female genital organ; Translations: [Atypical squamous cells cannot exclude high grade squamous intraepithelial lesion on cytologic smear of cervix (ASC-H)] Onset: 10-15-2023 10-15-2023 Episodic Cardiac dysrhythmias (3 sources) Palpitations; Translations: [Palpitations] Onset: 04-28-2024 04-28-2024 Episodic Contraceptive and procreative management (20 sources) Sterilization requested; Translations: [Encounter for sterilization] Onset: 11-17-2023 11-17-2023 Episodic Diabetes or abnormal glucose tolerance complicating ; childbirth; or the puerperium (20 sources) Impaired glucose tolerance in ; Translations: [Abnormal glucose complicating ] Onset: 11-18-2023 11-18-2023 Episodic Nonspecific chest pain (4 sources) Chest pain; Translations: [Chest pain, unspecified] Onset: 04-28-2024 Episodic Other complications of (20 sources) Rubella non-immune; Translations: [Supervision of other high risk pregnancies, unspecified trimester] Onset: 07-16-2023 07-16-2023 Episodic Other complications of (20 sources) High risk ; Translations: [Supervision of other high risk pregnancies, first trimester] Onset: 07-16-2023 07-16-2023 Episodic Other complications of (1 source) Supervision of with history of infertility, third trimester; Translations: [Supervision of with history of infertility, third trimester] Onset: 02-10-2024 Episodic Other nutritional; endocrine; and metabolic disorders (20 sources) Body mass index 25-29 - overweight; Translations: [Overweight] Onset: 11-22-2014 Resolved: 05-24-2021 05-24-2021 Episodic Otitis media and related conditions (20 sources) Dysfunction of eustachian tube; Translations: [Other specified disorders of Eustachian tube, unspecified ear] Onset: 11-02-2014 11-22-2014 Episodic Residual codes; unclassified (1 source) Pain, unspecified; Translations: [Pain] Onset: 10-13-2024 Episodic Spondylosis; intervertebral disc disorders; other back problems (20 sources) Thoracic back pain; Translations: [Pain in thoracic spine] Onset: 11-22-2014 Episodic Results Test Name Value Interpretation Reference Range Facil jeff Tran 03-18-2025 CNPN Telephone (INTMWS) ---- AIDEN FRENCH ([id number]) 1990 F Date Time Provider Department 03/18/25 KISHOR HERNANDEZ INTWS During your visit today, we recorded the following information about you: Daysi Olmstead RN 03/18/2025 8:45 AM Signed Patient calls to ask if provider would place her back on the Wellbutrin now that she is no longer . Patient last seen for Annual 06/15/2024. Aware appointment needs scheduled for that and asking if provider would order medication prior to seeing patient. Please review and advise, ASH Kumar Chitra, MD 03/18/2025 12:46 PM Signed Sent the medication Regards, Jennifer Steiner MD, MA 03/18/2025 2:09 PM Signed Left message on vm to call office back Jennifer Regan MA Allergies As of Date: 03/18/2025 (No Known Allergies) Date Reviewed: 02/04/2025 Reviewed by: Lisa Pulliam, RT(R) - Partially Assessed Reason for Visit: Patient Question [3928] Order(s):buPROPion (WELLBUTRIN) 75 mg tabletTake 1 tablet by mouth two times a day.Disp: 30 tabletRfl: 2 Prescriptions as of 03/21/2025 - buPROPion (WELLBUTRIN) 75 mg tablet Take 1 tablet by mouth two times a day. - omeprazole (PRILOSEC) 40 mg capsule Take 1 capsule by mouth two times a day. - sertraline (ZOLOFT) 25 mg tablet Take 1 tablet by mouth once daily. - Docosahexanoic Acid 200 mg cap Take by mouth. Problem List As Of Date 03/18/2025 Noted Resolved Rhinitis [J31.0] 11/02/2014 Eustachian tube dysfunction [H69.90] 11/02/2014 Overweight (BMI 25.0-29.9) [E66.3] 11/22/2014 05/24/2021 Back ache [M54.9] 11/22/2014 Anxiety and depression [F41.9, F32.A] 05/24/2021 Situational depression [F43.21] 05/24/2021 Panic attacks [F41.0] 05/24/2021 Attention deficit [R41.840] 10/31/2021 Rubella non-immune status, antepartum [O09.899,* Supervision of other high risk pregnancies, fir*07/16/2023 Pap smear of cervix with ASCUS, cannot exclude *10/15/2023 Request for sterilization [Z30.2] 11/17/2023 Abnormal glucose in , antepartum [O99.*11/18/2023 Gestational diabetes mellitus, class A1 [O24.41*11/19/2023 Hiatal hernia with gastroesophageal reflux dise*08/03/2024 Prescriptions ordered this encounter Disp Refills Start End BUPROPION HCL 75 MG TABLET 30 t* 2 03/18/2025 Route: PO Sig: Take 1 tablet by mouth two times a day. Encounter Status:Closed by DAYSI OLMSTEAD on 03/21/25 Normal [facility] GASTRIC EMPTYING SOLIDon 02-04-2025 [place] GASTRIC EMPTYING SOLID * * *Final Report* * * DATE OF EXAM: Feb 04 2025 12:42PM REBA 0017 - [place] GASTRIC EMPTYING SOLID / PROCEDURE REASON: Dyspepsia * * * * Physician Interpretation * * * * EXAM: SOLID MEAL GASTRIC EMPTYING STUDY HISTORY: Dyspepsia Assess for abnormal gastric emptying of a solid meal. TECHNIQUE: 1.1 millicuries of Tc-99m sulfur colloid was administered PO in a meal consisting of 4 oz Egg Beaters, 1/2 slices of toast, 1/4 oz jelly, and 5 oz water, consumed over 5 to 10 minutes. Planar anterior and posterior images of the gastric region were obtained at 0, 1, 2, and 4 hours after ingestion. RESULTS: Solid meal gastric retention values: * 58% retention at 1 hour (normal range, 37-90%; accelerated emptying defined as <30% at 1 hour) * 25% retention at 2 hours (normal range, <60%) * 2% retention at 4 hours (normal range, 0-10%) IMPRESSION: Normal gastric emptying rate for the solid meal. Rubbing Bed Operator: AGUSTINA Transcribe Date/Time: Feb 04 2025 12:43P Dictated by : FLAVIA WISE MD This examination was interpreted and the report reviewed and electronically signed by: FLAVIA WISE MD on Feb 04 2025 12:45PM EST [id number] Normal [facility] Stomach Views for gastric emptying solid phase W radionuclide Sean 02-04-2025 IMPRESSION: Normal gastric emptying rate for the solid meal. Rubbing Bed Operator: [facility] Transcribe Date/Time: Feb 04 2025 12:43P Dictated by : FLAVIA WISE MD This examination was interpreted and the report reviewed and electronically signed by: FLAVIA WISE MD on Feb 04 2025 12:45PM EST DIVISION OF RADIOLOGY * * *Final Report* * * DATE OF EXAM: Feb 04 2025 12:42PM [employer] 0017 - [place] GASTRIC EMPTYING SOLID / PROCEDURE REASON: Dyspepsia * * * * Physician Interpretation * * * * EXAM: SOLID MEAL GASTRIC EMPTYING STUDY HISTORY: Dyspepsia Assess for abnormal gastric emptying of a solid meal. TECHNIQUE: 1.1 millicuries of Tc-99m sulfur colloid was administered PO in a meal consisting of 4 oz Egg Beaters, 1/2 slices of toast, 1/4 oz jelly, and 5 oz water, consumed over 5 to 10 minutes. Planar anterior and posterior images of the gastric region were obtained at 0, 1, 2, and 4 hours after ingestion. RESULTS: Solid meal gastric retention values: * 58% retention at 1 hour (normal range, 37-90%; accelerated emptying defined as <30% at 1 hour) * 25% retention at 2 hours (normal range, <60%) * 2% retention at 4 hours (normal range, 0-10%) DIVISION OF RADIOLOGY Provider, [facility] [place] - 02/04/2025 * * *Final Report* * * DATE OF EXAM: Feb 04 2025 12:42PM [employer] 0017 - [place] GASTRIC EMPTYING SOLID / PROCEDURE REASON: Dyspepsia * * * * Physician Interpretation * * * * EXAM: SOLID MEAL GASTRIC EMPTYING STUDY HISTORY: Dyspepsia Assess for abnormal gastric emptying of a solid meal. TECHNIQUE: 1.1 millicuries of Tc-99m sulfur colloid was administered PO in a meal consisting of 4 oz Egg Beaters, 1/2 slices of toast, 1/4 oz jelly, and 5 oz water, consumed over 5 to 10 minutes. Planar anterior and posterior images of the gastric region were obtained at 0, 1, 2, and 4 hours after ingestion. RESULTS: Solid meal gastric retention values: * 58% retention at 1 hour (normal range, 37-90%; accelerated emptying defined as <30% at 1 hour) * 25% retention at 2 hours (normal range, <60%) * 2% retention at 4 hours (normal range, 0-10%) IMPRESSION IMPRESSION: Normal gastric emptying rate for the solid meal. Rubbing Bed Operator: AGUSTINA Transcribe Date/Time: Feb 04 2025 12:43P Dictated by : FLAVIA WISE MD This examination was interpreted and the report reviewed and electronically signed by: FLAVIA WISE MD on Feb 04 2025 12:45PM EST [facility] Radiology Study observation (narrative) Rafal godinez [facility] Stomach Views for gastric emptying solid phase W radionuclide POOrdered By: [facility]cf Provider on 02-04-2025 [facility] Emergency Department Summary on 12-06-2024 Emergency Department Summary [facility] Medical Records Department [address] [place] [id number] Emergency Department Summary 12/06/24 MR#: [id number] Acct: [id number] Name: AIDEN FRENCH Rep #: [id number] : 1990 34 From: Raul Light MD PCP: Dr. Kishor Hernandez MD Status:REG ER Location: ED HPI History of Present Illness Chief Complaint: Lower Extremity Injury Detail of Chief Complaint: Left lower extremity pain and swelling Informant: patient Onset/Context/Timin g Onset: Days (Several days) Context: Sudden Onset Timing: Continuous and Waxes and wanes Quality: Worse when her foot is dangling Location: Left lower extremity Current Severity: Mild Maximum Severity: Severe Worsened by: When foot is in a dependent position Relieved by: Improves when elevated Associated Symptoms Associated Symptoms: Complains of pain and numbness to toes Narrative Narrative: Patient is a 34-year-old female. She is status post reconstructive surgery of her left ankle by orthopedist at the [facility]. She denies chest pain. She denies shortness of breath. She states the discomfort is worse and she feels her leg is swollen when her foot is dependent. She also complains of tingling in her toes. She has no other complaints. Prior similar symptoms: No Recent Illness/Hospitaliza tion: Yes PFSH PFSH Medical History Care and examination of lactating mother Vaginal delivery History of depression History of hemorrhage GDM, class A1 SROM (spontaneous rupture of membranes) Active labor at term Infertility hemorrhage depression Gestational diabetes Anxiety Depression Ovarian cyst Home Medications ???Medication ???Instructions ???Recorded ???Last Taken ???Type sertraline 25 mg tablet 25 mg PO DAILY anxiety depr 02/01/24 History aspirin 81 mg tablet,delayed 81 mg PO DAILY 12/06/24 Unknown Hi story release (Adult Low Dose Aspirin) famotidine 20 mg tablet 20 mg PO BID 12/06/24 Unknown Hist ory hydrocodone-acetami nophen 5-325mg 1 tab PO Q6H PRN PRN pain 5 Unknown History 5mg-325mg Allergy/AdvReac Type Severity Reaction Status Date / Time No Known Allergies Allergy Verified 12/06/24 20:27 Surgical History History of ankle surgery Social History household members: family housing: house Smoking Status: Former smoker substance use type: does not use ROS ROS ED Cardiovascular Cardiovascular: Denies chest pain, orthopnea, palpitations or paroxysmal nocturnal dyspnea Respiratory/Chest Respiratory/Chest: Denies cough, dyspnea, dyspnea on exertion, orthopnea or paroxysmal nocturnal dyspnea Integumentary Denies rash Neurologic Neurologic: Reports paresthesias LUE Hematologic/Lymphat ic Hematologic/Lymphat ic: Reports other Details: Patient is on a baby aspirin. He is on no anticoagulant. ; Denies systems reviewed and no addt'l complaints, except as documented EXAM Physical Exam Const Vital Signs: 12/06/24 20:27 Temperature 97.3 F L Temperature Source Temporal Pulse Rate 99 Respiratory Rate 18 Blood Pressure 130/89 H Blood Pressure Mean 102 Pulse Ox 97 Oxygen Delivery Method Room Air Positive well nourished and well developed General Appearance ED: well developed HEENT Reports moist mucous membranes Negative for trauma or tenderness Eyes PERRL and EOMs intact bilaterally General Eye ED: Negative for pale conjunctiva or scleral icterus Neck no lymphadenopathy, supple and no JVD Resp normal respiratory effort Cardio regular rate and regular rhythm Extremity Extremity Narrative: Capillary fill is normal. Toes do not look significantly swollen to me. Sensation is normal. She has pain in the mid calf popliteal fossa and medial left thigh. Neuro oriented x3 and CN's II-XII intact bilaterally Sensorium / Orientation: alert Psych mental status grossly normal Skin no rashes or lesions noted, no wounds and skin turgor normal MDM MDM MDM Narrative Medical decision making narrative: Differential diagnosis is discomfort pain due to recent surgery and not elevating her properly. Because she has pain along the deep venous system a venous duplex study was ordered to rule out DVT. There is no concern for PE at this point since she has no cardiac respiratory symptoms. A venous duplex study was obtained. Radiography Diagnostic Testing: Venous duplex study per tech is negative for clot. Patient was informed of this. Patient was discharged to home. She was instructed to elevate her foot and specifically that her toes have to be above her nose. Discharge Plan Triage (more content not included)... Normal [facility] Venous Duplex Imag/Limited/U nion 12-06-2024 Venous Duplex Imag/Limited/Uni [facility] Imaging Services [address] [place] [address] Venous Duplex Imag/Limited/Uni MR#: [id number] Acct: [id number] Name: AIDEN FRENCH Rep #: [id number] : 1990 F 34 From: Suzanna Ponce DO PCP: Dr. Kishor Hernandez MD Status: [facility] ER Study: Venous Duplex Imag/Limited/Uni Date of Exam: 0 12/06/24 Exam# [id number] Ordering Dr: Raul Light MD EXAM: VENOUS DUPLEX IMAG/LIMITED/UNI CLINICAL HISTORY: Left leg pain COMPARISON: None. TECHNIQUE: Grayscale color flow and doppler analysis of the left lower extremity. FINDINGS: There is no intraluminal echogenicity to suggest the presence of a deep venous thrombosis. Appropriate respiratory variation, augmentation and venous compression is noted. US/Venous Duplex Imag/Limited/Uni IMPRESSION: Limited study due to overlying cast. No deep venous thrombosis identified in the left extremity. Reading Location: [facility] CC: Dr. Kishor Hernandez MD; Dr. Raul Light MD Rubbing Bed Operator: Signed Normal [facility] CNOVon 10-27-2024 CNOV Office Visit (UCWSTR) ---- AIDEN FRENCH ([id number]) 1990 F Date Time Provider Department 10/27/24 12:30 PM AMIRAH RIVERA [facility] During your visit today, we recorded the following information about you: Temperature Pulse Respiration Blood pressure 98.5 degrees 104/minute 20/minute 114/66 Weight 84 kg Amirah Rivera PA-C 10/27/2024 12:34 PM Signed This note was created using [employer]. Subjective Aiden Walden Manolo is a 34 year old female. Patient is a 34-year-old female who complains of fever, chills, myalgia, sore throat, headache and cough that she has been experiencing for the past 2 days. Patient has no history of asthma or COPD and does not smoke. Cough Associated symptoms include chills, sore throat and myalgias. Review of Systems Constitutional: Positive for chills, fatigue and fever. HENT: Positive for sore throat. Respiratory: Positive for cough. Musculoskeletal: Positive for myalgias. All other systems reviewed and are negative. Objective BP 114/66 Pulse 104 Temp 36.9 ?C (98.5 ?F) Resp 20 Wt 84 kg (185 lb 3 oz) LMP 06/16/2023 (Exact Date) SpO2 98% BMI 36.17 kg/m? Physical Exam Vitals and nursing note reviewed. Constitutional: Appearance: Normal appearance. She is normal weight. HENT: Head: Normocephalic and atraumatic. Right Ear: Tympanic membrane, ear canal and external ear normal. Left Ear: Tympanic membrane, ear canal and external ear normal. Nose: Nose normal. Mouth/Throat: Mouth: Mucous membranes are moist. Pharynx: Oropharynx is clear. Eyes: Extraocular Movements: Extraocular movements intact. Conjunctiva/sclera: Conjunctivae normal. Pupils: Pupils are equal, round, and reactive to light. Cardiovascular: Rate and Rhythm: Normal rate and regular rhythm. Pulses: Normal pulses. Heart sounds: Normal heart sounds. Pulmonary: Effort: Pulmonary effort is normal. Breath sounds: Normal breath sounds. Musculoskeletal: Cervical back: Normal range of motion and neck supple. Skin: General: Skin is warm and dry. Capillary Refill: Capillary refill takes less than 2 seconds. Neurological: General: No focal deficit present. Mental Status: She is alert and oriented to person, place, and time. Psychiatric: Mood and Affect: Mood normal. Behavior: Behavior normal. Thought Content: Thought content normal. Judgment: Judgment normal. Assessment and Plan Physical exam findings as noted above. Rapid strep PCR is negative. Patient was provided with prescriptions for Tamiflu 75 mg and Tessalon 100 mg. Supportive care instructions were discussed and the patient verbalizes clear understanding of same. CLINICAL IMPRESSION: Viral Illness ASSESSMENT/PLAN: 1. Viral illness - ICD9: 079.99, ICD10: B34.9 - STREP A MOLECULAR (POC) - BENZONATATE 100 MG CAPSULE - OSELTAMIVIR 75 MG CAPSULE Amirah Rivera PA-C Allergies As of Date: 10/27/2024 (No Known Allergies) Date Reviewed: 10/27/2024 Reviewed by: Jen Dickey MA - Fully Assessed Reason for Visit: Cough [28] Cmt: SALAZAR, sore throat, fever, body aches x 2 days Primary Visit Diagnosis:Viral illness [B34.9] Order(s):STREP A MOLECULAR (POC) [4353022] Order #: [id number]. #:[id number] benzonatate (TESSALON PERLE) 100 mg capsuleTake 1 capsule by mouth three times a day as needed for cough for up to 7 days.Disp: 21 capsuleRfl: 0 oseltamivir (TAMIFLU) 75 mg capsuleTake 1 capsule by mouth two times a day for 5 days.Disp: 10 capsuleRfl: 0 Prescriptions as of 10/27/2024 - benzonatate (TESSALON PERLE) 100 mg capsule Take 1 capsule by mouth three times a day as needed for cough for up to 7 days. - oseltamivir (TAMIFLU) 75 mg capsule Take 1 capsule by mouth two times a day for 5 days. - hydrocortisone-pram oxine (ANALPRAM-HC) 2.5-1 % rectal cream by RECTAL route three times a day for 7 days. Use as directed. - dicyclomine (BENTYL) 10 mg capsule Take 1 capsule by mouth three times a day as needed (abdominal cramping). - omeprazole (PRILOSEC) 40 mg capsule Take 1 capsule by mouth two times a day. - Docosahexanoic Acid 200 mg cap Take by mouth. - sertraline (ZOLOFT) 25 mg tablet Take 1 tablet by mouth once daily. Problem List As Of Date 10/27/2024 Noted Resolved Rhinitis [J31.0] 11/02/2014 Eustachian tube dysfunction [H69.90] 11/02/2014 Overweight (BMI 25.0-29.9) [E66.3] 11/22/2014 05/24/2021 Back ache [M54.9] 11/22/2014 Anxiety and depression [F41.9, F32.A] 05/24/2021 Situational depression [F43.21] 05/24/2021 Panic attacks [F41.0] 05/24/2021 Attention deficit [R41.840] 10/31/2021 Rubella non-immune status, antepartum [O09.899,* Supervision of other high risk pregnancies, fir*07/16/2023 Pap smear of cervix with ASCUS, cannot exclude *10/15/2023 Request for sterilization [Z30.2] 11/17/2023 Abnormal glucose in , antepartum [O (more content not included)... Normal [facility] STREP A MOLECULAR (POC)on Procedural Control Valid [facility] Strep A (POCT) Negative Negative [facility] CBC W/Diff, Automatedon 10-06 Absolute Lymph 0.50 X10 3/uL Low 0.83-4.51 [facility] Comment on above: Performed By: #### L 501.2450, L500.4050, L100.0100 #### [facility] [address] [place], [address] Absolute Neut 15.2 X10 3/uL High 2.0-7.7 [facility] Comment on above: Performed By: #### L 501.2450, L500.4050, L100.0100 #### [facility] [address] [place], [address] Basophils/100 WBC (Bld) 0.2 % Normal 0-1 [facility] Comment on above: Performed By: #### L 501.2450, L500.4050, L100.0100 #### [facility] [address] [place], [address] Eosinophils/100 WBC (Bld) 0.7 % Normal 0-5 [facility] Comment on above: Performed By: #### L 501.2450, L500.4050, L100.0100 #### [facility] [address] [place], [address] Erythrocyte distribution width (RBC) [Ratio] 12.5 % Normal 11.6-14.6 [facility] Comment on above: Performed By: #### L 501.2450, L500.4050, L100.0100 #### [facility] [address] [place], [address] Hematocrit (Bld) [Volume fraction] 41.8 % Normal 37-47 [facility] Comment on above: Performed By: #### L 501.2450, L500.4050, L100.0100 #### [facility] [address] [place], [address] Hemoglobin (Bld) [Mass/Vol] 13.7 g/dL Normal 12.0-15.0 [facility] Comment on above: Performed By: #### L 501.2450, L500.4050, L100.0100 #### [facility] [address] [place], [address] IG% 0.500 Normal 0.0-0.9 [facility] Comment on above: Result Comment: IG% - Immature Granulocytes (promyelocytes, myelocytes and metamyelocytes) > 1% indicates that a LEFT SHIFT is Present. Performed By: #### L 501.2450, L500.4050, L100.0100 #### [facility] [address] [place], [address] Lymphocytes/100 WBC (Bld) 3.0 % Low 19-41 [facility] Comment on above: Performed By: #### L 501.2450, L500.4050, L100.0100 #### [facility] [address] [place], [address] MCH (RBC) [Entitic mass] 28.9 pg Normal 27.0-32.0 [facility] Comment on above: Performed By: #### L 501.2450, L500.4050, L100.0100 #### [facility] [address] [place], [address] MCHC (RBC) [Mass/Vol] 32.8 g/dL Normal 32-36 [facility] Comment on above: Performed By: #### L 501.2450, L500.4050, L100.0100 #### [facility] [address] [place], [address] MCV (RBC) [Entitic vol] 88.2 fL Normal 81-99 [facility] Comment on above: Performed By: #### L 501.2450, L500.4050, L100.0100 #### [facility] [address] [place], [address] Monocytes/100 WBC (Bld) 3.7 % Normal 0-[address] [facility] Comment on above: Performed By: #### L 501.2450, L500.4050, L100.0100 #### [facility] [address] [place], [address] Neutrophils/100 WBC (Bld) 91.9 % High 47-70 [facility] Comment on above: Performed By: #### L 501.2450, L500.4050, L100.0100 #### [facility] [address] [place], [address] Nucleated RBC (Bld) [#/Vol] 0 10*3/uL Normal 0-5 [facility] Comment on above: Performed By: #### L 501.2450, L500.4050, L100.0100 #### [facility] [address] [place], [address] Platelet mean volume (Bld) [Entitic vol] 9.3 fL Normal 6.2-12.0 [facility] Comment on above: Performed By: #### L 501.2450, L500.4050, L100.0100 #### [facility] [address] [place], [address] Platelets (Bld) [#/Vol] 371 10*3/uL Normal 150-450 [facility] Comment on above: Performed By: #### L 501.2450, L500.4050, L100.0100 #### [facility] [address] [place], [address] RBC (Bld) [#/Vol] 4.74 10*6/uL Normal 4.2-5.4 [facility] Comment on above: Performed By: #### L 501.2450, L500.4050, L100.0100 #### [facility] [address] [place], [address] RDW SD 40.0 fl Normal 35.1-43.9 [facility] Comment on above: Performed By: #### L 501.2450, L500.4050, L100.0100 #### [facility] [address] [place], [address] WBC (Bld) [#/Vol] 16.6 10*3/uL High 4.4-11.0 [facility] Comment on above: Performed By: #### L 501.2450, L500.4050, L100.0100 #### [facility] [address] [place], [address] Comprehensive Metabolic Prof [facility] 10-19-2024 Albumin [Mass/Vol] 3.6 g/dL Normal 3.2-5.0 [facility] Comment on above: Performed By: #### L 501.2450, L500.4050, L100.0100 #### [facility] [address] [place], [address] Albumin/Globulin [Mass ratio] 0.9 {ratio} Normal 0.9-2.4 [facility] Comment on above: Performed By: #### L 501.2450, L500.4050, L100.0100 #### [facility] [address] [place], [address] ALK P 94 U/L Normal 45-117 [facility] Comment on above: Performed By: #### L 501.2450, L500.4050, L100.0100 #### [facility] [address] [place], [address] ALT [Catalytic activity/Vol] 23 U/L Normal 13-56 [facility] Comment on above: Performed By: #### L 501.2450, L500.4050, L100.0100 #### [facility] [address] [place], [address] AST [Catalytic activity/Vol] 14 U/L Low 15-37 [facility] Comment on above: Performed By: #### L 501.2450, L500.4050, L100.0100 #### [facility] [address] [place], [address] Bilirubin [Mass/Vol] 0.80 mg/dL Normal 0.20-1.00 [facility] Comment on above: Result Comment: For patients on eltrombopag therapy, use of Dimension [place] TBIL is not recommended. Performed By: #### L 501.2450, L500.4050, L100.0100 #### [facility] [address] [place], [address] BUN/CRE 29.2 RATIO High 10-20 [facility] Comment on above: Performed By: #### L 501.2450, L500.4050, L100.0100 #### [facility] [address] [place], [address] CA,Total 8.9 mg/dL Normal 8.5-10.1 [facility] Comment on above: Performed By: #### L 501.2450, L500.4050, L100.0100 #### [facility] [address] [place], [address] Chloride [Moles/Vol] 112 mmol/L High 98-107 [facility] Comment on above: Performed By: #### L 501.2450, L500.4050, L100.0100 #### [facility] [address] [place], [address] CO2 [Moles/Vol] 25.0 mmol/L Normal 21.0-32.0 [facility] [facility] Comment on above: Performed By: #### L 501.2450, L500.4050, L100.0100 #### [facility] [address] [place], [address] Creatinine [Mass/Vol] 0.86 mg/dL Normal 0.55-1.02 [facility] Comment on above: Result Comment: The validity of the calculated GFR GFRAA in patients over 70 years has not been determined. Clinical correlation is essential. Performed By: #### L 501.2450, L500.4050, L100.0100 #### [facility] [address] [place], [address] ECRCL 89.87 ml/min Normal [facility] Comment on above: Performed By: #### L 501.2450, L500.4050, L100.0100 #### [facility] [address] [place], [address] EST GFR - AA 99 mL/min Normal >60 [facility] Comment on above: Result Comment: Afri can Bahraini GFR Calc Performed By: #### L 501.2450, L500.4050, L100.0100 #### [facility] [address] [place], [address] GAP 3 Low 5-15 [facility] Comment on above: Performed By: #### L 501.2450, L500.4050, L100.0100 #### [facility] [address] [place], [address] GFR/1.73 sq M.predicted among non-blacks MDRD (S/P/Bld) [Vol rate/Area] 82 mL/min/{1.73_m2} Normal >60 [facility] Comment on above: Result Comment: Non- GFR Calc Performed By: #### L 501.2450, L500.4050, L100.0100 #### [facility] [address] [place], [address] Globulin (S) [Mass/Vol] 4.1 g/dL Normal 2.2-4.[address] [facility] Comment on above: Performed By: #### L 501.2450, L500.4050, L100.0100 #### [facility] [address] [place], [address] Glucose [Mass/Vol] 110 mg/dL High 74-106 [facility] Comment on above: Result Comment: Fast ing Glucose result from 100 to 125 mg/dL suggests IMPAIRED HOMEOSTASIS per A.D.A. criteria. Performed By: #### L 501.2450, L500.4050, L100.0100 #### [facility] [address] [place], [address] Potassium [Moles/Vol] 4.2 mmol/L Normal 3.5-5.1 [facility] Comment on above: Performed By: #### L 501.2450, L500.4050, L100.0100 #### [facility] [address] [place], [address] Sodium [Moles/Vol] 140 mmol/L Normal 136-145 [facility] Comment on above: Performed By: #### L 501.2450, L500.4050, L100.0100 #### [facility] [address] [place], [address] T PROT 7.7 g/dL Normal 6.4-8.2 [facility] Comment on above: Performed By: #### L 501.2450, L500.4050, L100.0100 #### [facility] [address] [place], [address] Urea nitrogen [Mass/Vol] 25 mg/dL High 7-18 [facility] Comment on above: Performed By: #### L 501.2450, L500.4050, L100.0100 #### [facility] [address] [place], [address] Emergency Department Summary on 10-19-2024 Emergency Department Summary [facility] Medical Records Department [address] [place] [address] Emergency Department Summary 10/19/24 MR#: [id number] Acct: [id number] Name: AIDEN FRENCH Rep #: [id number] : 1990 34 From: Jorge Hinson DO PCP: Dr. Kishor Hernandez MD Status:DEP ER Location: ED HPI HPI - GI History of Present Illness Chief Complaint: Abd Pain Informant: patient Abdominal Pain/Flank Pain Onset: Today Context: Sudden Onset Timing: Continuous Quality: Aching and Cramping Location: Epigastric, RUQ and LUQ Worsened by: Nothing Relieved by: Nothing Nausea/Vomiting/Suze sis GI Symptom: Positive for Nausea and Vomiting Quality: Positive for Nonbilious; Negative for Blood streaks, Coffee ground or Hematemesis Diarrhea/Melena/Hem atochezia GI Symptom: Positive for Diarrhea; Negative for Melena or Hematochezia Stool Quality: Positive for Watery Associated Symptoms Associated Symptoms: Negative for Dysuria, Frequency or Hematuria LMP: Current Narrative Narrative: Patient presents with nausea, vomiting, and diarrhea that began today. Patient also admits to some upper abdominal pain. Patient states it is aching and cramping. Patient states nothing makes it better and nothing makes it worse. Patient denies any hematemesis or coffee-ground emesis. Patient admits to watery diarrhea. Patient denies any melena or hematochezia. Patient states she is currently on her menstrual period. Patient denies any urinary complaints. Patient denies any fevers or chills. [facility] Medical History Care and examination of lactating mother Vaginal delivery History of depression History of hemorrhage GDM, class A1 SROM (spontaneous rupture of membranes) Active labor at term Infertility hemorrhage depression Gestational diabetes Anxiety Depression Ovarian cyst Home Medications ???Medication ???Instructions ???Recorded ???Last Taken ???Type docosahexaenoic acid 200 mg mg PO DAILY 11/02/23 Unknown History capsule ( DHA) sertraline 25 mg tablet 25 mg PO DAILY anxiety depr 08/07/23 02/01/24 History ondansetron 4 mg disintegrating 4 mg PO Q8H PRN PRN Nausea #10 tabs 10/19/24 Unknown Rx tablet Allergy/AdvReac Type Severity Reaction Status Date / Time No Known Allergies Allergy Verified 02/02/24 21:50 Social History Smoking Status: Former smoker substance use type: does not use ROS ROS ED Constitutional Constitutional ED: Denies chills or fever(s) Eyes Eyes: Denies blurry vision or change in vision ENT ENT ED: Denies rhinorrhea or sore throat Cardiovascular Cardiovascular: Denies chest pain or palpitations Respiratory/Chest Respiratory/Chest: Denies cough or dyspnea Gastrointestinal Gastrointestinal: Reports abdominal pain, diarrhea, nausea and vomiting; Denies melena Genitourinary Genitourinary ED: Denies dysuria or hematuria Musculoskeletal Musculoskeletal: Reports neck pain; Denies back pain Integumentary Denies abscess or rash Neurologic Neurologic: Denies headache(s) or weakness Allergic/Immunologi c Allergic/Immunologi c ED: Denies mouth swelling or urticaria EXAM Physical Exam Const Vital Signs: 10/19/24 07:30 10/19/24 09:30 Temperature 96.9 F L Temperature Source Temporal Pulse Rate 105 H 78 Respiratory Rate 20 H 14 Blood Pressure 112/73 126/78 H Blood Pressure Mean 86 94 Pulse Ox 98 98 Oxygen Delivery Method Room Air Room Air Positive well nourished and well developed General Appearance ED: well developed and NAD HEENT Reports moist mucous membranes normocephalic and atraumatic Neck supple and no JVD Resp normal respiratory effort and clear to auscultation bilaterally Cardio regular rhythm Rate: tachycardic GI non-distended Palpation: soft and tender epigastric, LUQ and RUQ; Negative for guarding or rebound tenderness present Extremity General Extremety ED: Negative for edema or tenderness General Extremity: Negative for edema Neuro CN's II-XII intact bilaterally, moves all extremities and no sensory deficits noted Sensorium / Orientation: alert Motor Exam: strength 5/5 throughout Psych mental status grossly normal and thought process normal MDM MDM MDM Narrative Medical decision making narrative: Differential diagnosis includes viral illness, gastroenteritis, dehydration, electrolyte abnormality, pancreatitis, urinary tract infection, and . CBC will be obtained to assess for leukocytosis and anemia. Comprehensive metabolic profile will be obtained to assess for hepatic function, renal function, and electrolyte abnormality. Lipase will be obtained to assess for pancreat (more content not included)... Normal [facility] Lipaseon 10-19-2024 Lipase [Catalytic activity/Vol] 23 U/L Normal 13-75 [facility] Comment on above: Result Comment: Jef duran note: LIPASE revised reference range effective 23. New Lipase methodology. Expected to produce lower values than the previous assay method. NEW Reference Range: 13 - 75 U/L Performed By: #### L 501.2450, L500.4050, L100.0100 #### [facility] [address] [place], [address] ,Serum,hCG Quali.on 10-19-2024 HCG, SERUM QUAL Negative Normal [facility] Comment on above: Performed By: #### L 100.0100, BTS #### [facility] [address] [place], [address] Urinalysis, Completeon 10-19 BACTERIA 1+ /hpf Normal None Seen [facility] Comment on above: Order Comment: NILSA CTOR TO SPECIFY Performed By: #### L 100.0100, BTS #### [facility] [address] [place], [address] EPI,SQUAMOUS 0-5 SEEN Normal 5-10 [facility] Comment on above: Order Comment: NILSA CTOR TO SPECIFY Performed By: #### L 100.0100, BTS #### [facility] [address] [place], [address] Mucus Ql (Urine sed) 1+ /hpf Normal [facility] Comment on above: Order Comment: NILSA CTOR TO SPECIFY Performed By: #### L 100.0100, BTS #### [facility] [address] [place], [address] RBC 10-25 SEEN Normal 0-5 [facility] Comment on above: Order Comment: NILSA CTOR TO SPECIFY Performed By: #### L 100.0100, BTS #### [facility] [address] [place], [place], [address] WBC 0 SEEN Normal 0-5 [facility] Comment on above: Order Comment: NILSA CTOR TO SPECIFY Performed By: #### L 100.0100, BTS #### [facility] [address] [place], [place], [address] CNOVon 10-13-2024 CNOV Office Visit ([facility]) ---- AIDEN FRNECH F ([id number]) 1990 F Date Time Provider Department 10/13/24 12:00 PM ABEL THORNTON [facility] During your visit today, we recorded the following information about you: Temperature Pulse Respiration Blood pressure 97.8 degrees 88/minute 16/minute 118/68 Weight 86.5 kg Abel Thornton APRN.AUTO HEADLIGHT MECHANIC 10/13/2024 12:55 PM Signed Subjective Came in with complaints of right foot pain. Patient says it has been the last 4-yasir days. Patient did not injure it in any way. Patient does have a walking boot on her left foot so has possibly been utilizing the right foot more. Patient says it hurts more when she walks and puts pressure on it. Patient says it is the same pain throughout the day nothing makes it worse nothing makes it better. Patient denies any numbness tingling or loss of feeling. Patient denies any difficulty with strength or range of motion. The history is provided by the patient. No deli slicer was used. Pain (foot) Review of Systems Constitutional: Negative. Skin: Negative. Objective Physical Exam Constitutional: Appearance: Normal appearance. Pulmonary: Effort: Pulmonary effort is normal. Musculoskeletal: Feet: Feet: Comments: Is experiencing pain in the area marked above. It is tender to palpate. No signs of deformities, discolorations, redness or swelling. Range of motion and sensation are in normal limits. Circulation is intact. Neurological: Mental Status: She is alert. PAST MEDICAL HISTORY Diagnosis Date Back pain GERD (gastroesophageal reflux disease) Overweight (BMI 25.0-29.9) 11/22/2014 PAST SURGICAL HISTORY Procedure Laterality Date EGD W/O BRSH SPEC VARICIES INJ 08/03/2024 ALLERGIES Patient has no known allergies. MEDICATIONS dicyclomine (BENTYL) 10 mg capsule Take 1 capsule by mouth three times a day as needed (abdominal cramping). omeprazole (PRILOSEC) 40 mg capsule Take 1 capsule by mouth two times a day. Docosahexanoic Acid 200 mg cap Take by mouth. sertraline (ZOLOFT) 25 mg tablet Take 1 tablet by mouth once daily. hydrocortisone-pram oxine (ANALPRAM-HC) 2.5-1 % rectal cream by RECTAL route three times a day for 7 days. Use as directed. FAMILY HISTORY Problem Relation Age of Onset Asthma Mother Cataract Mother Cataract Maternal Grandmother Cataract Maternal Grandfather other (Heart, brain mass) Maternal Grandfather Cataract Paternal Grandmother Cataract Paternal Grandfather Breast Cancer Other great grandmother-p Colon Cancer No Family History Social History Tobacco Use Smoking status: Former Current packs/day: 0.50 Average packs/day: 0.5 packs/day for 5.0 years (2.5 ttl pk-yrs) Types: Cigarettes Smokeless tobacco: Never Tobacco comments: vape Vaping Use Vaping status: Former Substance Use Topics Alcohol use: Not Currently Comment: occasionally Drug use: No ASSESSMENT/PLAN: 1. Pain - ICD9: 780.96, ICD10: R52 - XR FOOT GENERAL 3V AP/LAT/OBL RIGHT * * * * Physician Interpretation * * * * History: Pain FINDINGS: AP view of both feet and oblique and lateral views of the right foot have been obtained. The bones are well-mineralized without evidence of fracture or dislocation. Joint spaces are maintained. No gross soft tissue abnormality seen. IMPRESSION IMPRESSION: No acute process is seen. Rubbing Bed Operator: AGUSTINA Transcribe Date/Time: Oct 13 2024 12:46P Dictated by : DYANA DEBORA, MD Try to rest to take Tylenol and ice foot at this time. Offered podiatry patient not interested at this time we will follow-up if signs and symptoms persist. Patient agreeable to care plan. Abel Thornton APRN.AUTO HEADLIGHT MECHANIC Allergies As of Date: 10/13/2024 (No Known Allergies) Date Reviewed: 10/13/2024 Reviewed by: Belem Duenas MA - Fully Assessed Reason for Visit: Pain (foot) [760] Cmt: right x 4-5 days,. denies injury Primary Visit Diagnosis:Pain [R52] Order(s):XR FOOT GENERAL 3V AP/LAT/OBL RIGHT [[id number]] Order #: [id number] FUTURE Prescriptions as of 10/13/2024 - hydrocortisone-pram oxine (ANALPRAM-HC) 2.5-1 % rectal cream by RECTAL route three times a day for 7 days. Use as directed. - dicyclomine (BENTYL) 10 mg capsule Take 1 capsule by mouth three times a day as needed (abdominal cramping). - omeprazole (PRILOSEC) 40 mg capsule Take 1 capsule by mouth two times a day. - Docosahexanoic Acid 200 mg cap Take by mouth. - sertraline (ZOLOFT) 25 mg tablet Take 1 tablet by mouth once daily. Problem List As Of Date 10/13/2024 Noted Resolved Rhinitis [J31.0] 11/02/2014 Eustachian tube dysfunction [H69.90] 11/02/2014 Overweight (BMI 25.0-29.9) [E66.3] 11/22/2014 05/24/2021 Back ache [M54.9] 11/22/2014 Anxiety and depression [F41.9, F32.A] 05/24/2021 Situational depression [F43.21] 05/24/2021 Panic attacks [F41.0] 05/24/2021 Attention deficit [R41.840 (more content not included)... Normal [facility] XR FOOT 3V AP/LAT/OBL RTon 0 - XR FOOT 3V AP/LAT/OBL RT * * *Final Report* * * DATE OF EXAM: Oct 13 2024 12:20PM WOX [id number] - XR FOOT 3V AP/LAT/OBL RT / PROCEDURE REASON: Pain * * * * Physician Interpretation * * * * History: Pain FINDINGS: AP view of both feet and oblique and lateral views of the right foot have been obtained. The bones are well-mineralized without evidence of fracture or dislocation. Joint spaces are maintained. No gross soft tissue abnormality seen. IMPRESSION: No acute process is seen. Rubbing Bed Operator: PSCB Transcribe Date/Time: Oct 13 2024 12:46P Dictated by : DYANA CAZARES MD This examination was interpreted and the report reviewed and electronically signed by: DYANA CAZARES MD on Oct 13 2024 12:47PM EST [id number] Normal [facility] XR Foot - right AP and Later al and obliqueon 10-13-2024 IMPRESSION: No acute process is seen. Rubbing Bed Operator: PSCB Transcribe Date/Time: Oct 13 2024 12:46P Dictated by : DYANA CAZARES MD This examination was interpreted and the report reviewed and electronically signed by: DYANA CAZARES MD on Oct 13 2024 12:47PM EST DIVISION OF RADIOLOGY * * *Final Report* * * DATE OF EXAM: Oct 13 2024 12:20PM WOX [id number] - XR FOOT 3V AP/LAT/OBL RT / PROCEDURE REASON: Pain * * * * Physician Interpretation * * * * History: Pain FINDINGS: AP view of both feet and oblique and lateral views of the right foot have been obtained. The bones are well-mineralized without evidence of fracture or dislocation. Joint spaces are maintained. No gross soft tissue abnormality seen. DIVISION OF RADIOLOGY Provider, [facility] [place] - 10/13/2024 * * *Final Report* * * DATE OF EXAM: Oct 13 2024 12:20PM WOX [id number] - XR FOOT 3V AP/LAT/OBL RT / PROCEDURE REASON: Pain * * * * Physician Interpretation * * * * History: Pain FINDINGS: AP view of both feet and oblique and lateral views of the right foot have been obtained. The bones are well-mineralized without evidence of fracture or dislocation. Joint spaces are maintained. No gross soft tissue abnormality seen. IMPRESSION IMPRESSION: No acute process is seen. Rubbing Bed Operator: PSCB Transcribe Date/Time: Oct 13 2024 12:46P Dictated by : DYANA CAZARES MD This examination was interpreted and the report reviewed and electronically signed by: DYANA CAZARES MD on Oct 13 2024 12:47PM EST [facility] Radiology Study observation (narrative) [facility] XR Foot - right AP and Later al and obliqueOrdered By: [facility] Provider on 10-13-2024 [facility] CNCOon 09-23-2024 CNCO Letter Text Normal [facility] CNOVon 09-23-2024 CNOV Office Visit ([facility]) ---- AIDEN FRENCH ([id number]) 1990 F Date Time Provider Department 09/23/24 8:25 AM JOSE DELGADO [facility] During your visit today, we recorded the following information about you: Pulse Blood pressure Weight Height 75/minute 122/74 82.6 kg 1.524 m Jose Delgado, RECORDS MANAGEMENT ENGINEER.AUTO HEADLIGHT MECHANIC 09/23/2024 8:48 AM Signed CHIEF COMPLAINT: Patient presents with: Recheck: EGD done HPI Aidenhillary French is a 34 year old female here today for Recheck (EGD done 08/03/24). EGD showed LA B esophagitis; 3cm hiatal hernia. The pantoprazole sucralfate and pepcid have not helped; currently only taking pantoprazole but still with GERD everyday. She does admit that she has forgotten to take her meds at times. She feels like the pantoprazole does something, and feels like it is just not enough. Sucralfate helped initially, but it was too difficult to dose. She is having some gallbladder attacks once every 3 months; were more frequent when she was . Current Outpatient Medications Medication Sig Docosahexanoic Acid 200 mg cap Take by mouth. pantoprazole DR (PROTONIX) 40 mg tablet Take 1 tablet by mouth daily before breakfast. Take on empty stomach, 1/2 hr before meal. sertraline (ZOLOFT) 25 mg tablet Take 1 tablet by mouth once daily. sucralfate (CARAFATE) 100 mg/mL suspension take 10 MILLILITERS ( 2 TEASPOONFULS ) by mouth three times a day for 14 days (Patient not taking: Reported on 09/23/2024) famotidine (PEPCID) 20 mg tablet Take 1 tablet by mouth two times a day. (Patient not taking: Reported on 09/23/2024) No current facility-administer ed medications for this visit. ALLERGIES No Known Allergies Social History Tobacco Use Smoking status: Former Current packs/day: 0.50 Average packs/day: 0.5 packs/day for 5.0 years (2.5 ttl pk-yrs) Types: Cigarettes Smokeless tobacco: Never Tobacco comments: vape Vaping Use Vaping status: Former Substance Use Topics Alcohol use: Not Currently Comment: occasionally Drug use: No PAST MEDICAL HISTORY Diagnosis Date Back pain GERD (gastroesophageal reflux disease) Overweight (BMI 25.0-29.9) 11/22/2014 PAST SURGICAL HISTORY Procedure Laterality Date EGD W/O BRSH SPEC VARICIES INJ 08/03/2024 FAMILY HISTORY Problem Relation Age of Onset Asthma Mother Cataract Mother Cataract Maternal Grandmother Cataract Maternal Grandfather other (Heart, brain mass) Maternal Grandfather Cataract Paternal Grandmother Cataract Paternal Grandfather Breast Cancer Other great grandmother-p Colon Cancer No Family History REVIEW OF SYSTEMS Review of Systems Gastrointestinal: Heartburn All other systems reviewed and are negative. PHYSICAL EXAM BP 122/74 Pulse 75 Ht 5' 0 (1.52m) Wt 182 lb (82.6kg) LMP 06/16/2023 BMI 35.54 kg/(m2). Physical Exam Vitals and nursing note reviewed. Constitutional: Appearance: Normal appearance. She is normal weight. HENT: Head: Normocephalic and atraumatic. Eyes: General: No scleral icterus. Cardiovascular: Rate and Rhythm: Normal rate. Pulmonary: Effort: Pulmonary effort is normal. Breath sounds: Normal breath sounds. Abdominal: General: Abdomen is flat. Bowel sounds are normal. Palpations: Abdomen is soft. Tenderness: There is no abdominal tenderness. There is no guarding or rebound. Neurological: Mental Status: She is alert and oriented to person, place, and time. Psychiatric: Mood and Affect: Mood normal. Behavior: Behavior normal. Thought Content: Thought content normal. Judgment: Judgment normal. ASSESSMENT: (K21.00) Gastroesophageal reflux disease with esophagitis without hemorrhage (primary encounter diagnosis) (K44.9) Hiatal hernia 1. Gastroesophageal reflux disease with esophagitis without hemorrhage - Will have her stop the pantoprazole and switch to omeprazole 40mg BID. If having breakthrough symptoms, can use Mylanta or liquid gaviscon - continue with dietary modifications for GERD - omeprazole (PRILOSEC) 40 mg capsule; Take 1 capsule by mouth two times a day. Dispense: 180 capsule; Refill: 0 2. Hiatal hernia - omeprazole (PRILOSEC) 40 mg capsule; Take 1 capsule by mouth two times a day. Dispense: 180 capsule; Refill: 0 Follow up in office 3 months/PRN Jose Delgado APRN.CNP September 23, 2024 8:46 AM Jose Delgado APRN.CNP 09/23/2024 8:44 AM Signed - If still having symptoms of GERD/chest discomfort then it is ok to use over the counter Mylanta or liquid gaviscon Allergies As of Date: 09/23/2024 (No Known Allergies) Date Reviewed: 09/23/2024 Reviewed by: Jose Delgado APRN.CNP - Fully Assessed Reason for Visit: Recheck [92] Cmt: EGD done Primary Visit Diagnosis:Gastroeso phageal reflux disease with esophagitis without hemorrhage [K21.00] Other Visit Diagnosis:Hiatal hernia [K44.9] Order(s):omeprazole (MA (more content not included)... Normal [facility] [id number] 08-03-2024 [id number] HNO ID: [id number] Author: SHERYL HUI RN Service: ? Author Type: Registered Nurse Type: [id number] Filed: 08/03/2024 15:21 Note Text: The patient received a copy of EGD discharge instructions that contain information for how to contact the physician who performed the procedure and when to seek medical care. Normal [facility] ANES POSTPROC EVALon 024 ANES POSTPROC EVAL HNO ID: [id number] Author: ERLIN MALDONADO APRN.CRNA Service: Anesthesiology Author Type: Nurse Care Assistant Type: Anesthesia Postprocedure Evaluation Filed: 08/03/2024 15:19 Note Text: POST ANESTHESIA EVALUATION NOTE : 1990 Procedure Summary Date: 08/03/24 Room / Location: Ambulatory Surgery Anesthesia Start: 1502 Anesthesia Stop: 1518 Procedure: EGD DIAGNOSTIC Diagnosis: Gastroesophageal reflux disease, unspecified whether esophagitis present Upper abdominal pain (Heartburn) Scheduled Providers: Edgardo Ramirez MD Responsible Provider: Erlin Maldonado APRN.CRNA Anesthesia Type: MAC ASA Status: 2 Anesthesia Type: MAC Last Vitals Vitals Value Taken Time BP 146/66 08/03/24 1519 Temp 36.4 ?C (97.5 ?F) 08/03/24 1519 Pulse 94 08/03/24 1519 Resp 16 08/03/24 1519 SpO2 93 % 08/03/24 1519 Post Anesthesia Patient Status Patient Evaluation: PACU. PACU/ICU Patient Condition: stable. Anticipated Disposition: phase 2 then home. Neurological Status: aware and responsive. Pulmonary Status: breathing comfortably on room air Airway Control: returned to baseline unsupported. Cardiovascular Status: stable. Pain Management: clinically adequate - multimodal analgesia pain management approach Postoperative Hydration: acceptable. Intraoperative Events: no significant anesthesia events Post Operative Nausea/Vomiting Status: no significant post operative nausea or vomiting Recommendation: continue current plan of care. Anesthesia Observations No Documentation SIGNATURE: Erlin Maldonado APRN.CRNA PATIENT NAME: Aiden French DATE: August 03, 2024 TIME: 3:19 PM CSN: [id number] Normal [facility] EGD Study observation Jennifer sanchez 08-03-2024 [facility] G[facility] End[facility] Patient Name: Aiden French Procedure Date: 08/03/2024 2:54 PM Date of : 1990 Admit Type: Outpatient Age: 34 Room: [place] [address] Gender: Female Note Status: Finalized Attending MD: Edgardo Ramirez MD, [id number] Procedure: Upper GI endoscopy Indications: Heartburn Providers: Edgardo Ramirez MD Patient Profile: Refer to note in patient chart for documentation of history and physical. Referring Physician: Jose Delgado (Referring MD) Medicines: Monitored Anesthesia Care Complications: No immediate complications. Estimated blood loss: Minimal. Requesting Provider: Procedure: Pre-Anesthesia Assessment: - Prior to the procedure, a History and Physical was performed, and patient medications and allergies were reviewed. The patient's tolerance of previous anesthesia was also reviewed. The risks and benefits of the procedure and the sedation options and risks were discussed with the patient. All questions were answered, and informed consent was obtained. Prior Anticoagulants: The patient has taken no anticoagulant or antiplatelet agents. ASA Grade Assessment: See anesthesia record. After reviewing the risks and benefits, the patient was deemed in satisfactory condition to undergo the procedure. After obtaining informed consent, the endoscope was passed under direct vision. Throughout the procedure, the patient's blood pressure, pulse, and oxygen saturations were monitored continuously. The Endoscope was introduced through the mouth, and advanced to the third part of duodenum. I was present and participated during the entire procedure, including non-aguillon portions, and during the administration and monitoring of Moderate Sedation. The upper GI endoscopy was accomplished without difficulty. The patient tolerated the procedure well. Moderate Sedation: MAC anesthesia was administered by the anesthesia team. Findings: LA Grade B (one or more mucosal breaks greater than 5 mm, not extending between the tops of two mucosal folds) esophagitis with no bleeding was found 30 to 32 cm from the incisors. Biopsies were taken with a cold forceps for histology. The pathology specimen was placed into Bottle Number 3. A 3 cm hiatal hernia was present, Z-line at 32 cm and the diaphragmatic pinch at 35 cm. It was sliding type and, with breathing, was up to 6 cm in size from 32 to 38 cm. The LES appeared patulous and open at all times. The exam of the esophagus was otherwise normal. The entire examined stomach was normal. Biopsies were taken from the antrum/incisura with a cold forceps for histology. The pathology specimen was placed into Bottle Number 2. The cardia and gastric fundus were normal on retroflexion. Hiatal hernia was noted. The duodenal bulb, second portion of the duodenum and third portion of the duodenum were normal. Biopsies for histology were taken with a cold forceps for evaluation of celiac disease. The pathology specimen was placed into Bottle Number 1. Impression: - LA Grade B esophagitis with no bleeding. Biopsied. - 3 cm hiatal hernia. - Normal stomach. Biopsied. - Normal duodenal bulb, second portion of the duodenum and third portion of the duodenum. Biopsied. Recommendation: - Patient has a contact number available for emergencies. The signs and symptoms of potential delayed complications were discussed with the patient. Return to normal activities tomorrow. Written discharge instructions were provided to the patient. - Resume previous diet. - Continue present medications. Procedure Code(s): --- Professional --- 63378, Esophago (more content not included)... PROVATION [facility] Radiology Study observation (narrative) [facility] HISTORY PHYSICALon HISTORY PHYSICAL HNO ID: [id number] Author: EDGARDO RAMIREZ MD Service: Gastroenterology Author Type: Physician Type: H&P Filed: 08/03/2024 15:00 Note Text: Endoscopy pre-operative HANDP HANDP completed prior to the start time of the procedure. IMPRESSION AND PLAN HPI: This is a 34 year old female. For EGD. GERD like symptoms Pertinent Review of Systems: GI: See HPI All other reviewed and negative other than HPI. PAST MEDICAL HISTORY: PAST MEDICAL HISTORY Diagnosis Date Back pain GERD (gastroesophageal reflux disease) Overweight (BMI 25.0-29.9) 11/22/2014 PAST SURGICAL HISTORY: History reviewed. No pertinent surgical history. OBJECTIVE: PHYSICAL EXAM: VITALS: BP 106/70 Pulse 76 Temp 36.4 ?C (97.6 ?F) (Temporal) Resp 16 Ht 152.4 cm (5') Wt 80.7 kg (178 lb) LMP 06/16/2023 (Exact Date) SpO2 99% BMI 34.76 kg/m? General appearance: AANDOx3 Respiratory: Normal chest expansion. No audible wheezes. CVS: No shortness of breath, no extremity edema. Regular pulse. Plan: OK to proceed with endoscopy. SIGNATURE: Edgardo Ayala MD PATIENT NAME: Aiden French Normal [facility] SURGICAL PATHOLOGYon 024 CASE REPORT Normal [facility] Comment on above: Order Comment: Speci men Type: TISSUE SPECIMEN Ordering Facility: [facility] Address: [address] [place] [address] Result Comment: Surg ica Pathology Report Case: [id number] Authorizing Provider: Edgardo Ramirez MD Collected: 08/03/2024 03:07 PM Ordering Location: Ambulatory Surgery Received: 08/03/2024 07:46 PM Pathologist: Gumaro Springer MD Specimens: A) - Small Bowel, Duodenum, Biopsy B) - Stomach, Antrum, Biopsy C) - Esophagus, Distal, Biopsy Performed By: #### S #### [facility] CLIA [id number] [address] [place] [address] DIAGNOSIS COMMENT C. The findings are non-specific but may reflect reflux related injury in the appropriate clinical and endoscopic context. Normal [facility] Comment on above: Order Comment: Speci men Type: TISSUE SPECIMEN Ordering Facility: [facility] Address: [address] [place] [address] Performed By: #### S #### [facility] CLIA [id number] [address] [place] [address] FINAL DIAGNOSIS Normal [facility] Comment on above: Order Comment: Speci men Type: TISSUE SPECIMEN Ordering Facility: [facility] Address: [address] [place] [address] Result Comment: A. D uodenum, biopsy: -Duodenal mucosa with no diagnostic abnormality. B. Stomach, antrum, biopsy: -Gastric antral mucosa with no diagnostic abnormality. C. Esophagus, lower, biopsy: -Squamous epithelium with mild reactive change and increased eosinophils (up to 24 per high-powered field), see comment. Performed By: #### S #### [facility] CLIA [id number] [address] [place] [address] FINAL PERFORMING LAB Normal [facility] Comment on above: Order Comment: Speci men Type: TISSUE SPECIMEN Ordering Facility: [facility] Address: [address] [place] [address] Result Comment: Diag nostic interpretation performed at [facility], [address] [place] [address] CLIA# [id number] Senior Sustainability Advisor: Rajesh Zepeda M.D. Performed By: #### S #### [facility] CLIA [id number] [address] [place] [address] [place] GROSS DESCRIPTION Normal [facility] Comment on above: Order Comment: Speci men Type: TISSUE SPECIMEN Ordering Facility: [facility] Address: [address] [place] [address] Result Comment: A. S mall Bowel, Duodenum, Biopsy Received in formalin is one piece of cruz, soft tissue measuring 0.6 x 0.3 x 0.1 cm. Totally submitted in one cassette. B. Stomach, Antrum, Biopsy Received in formalin is one piece of cruz, soft tissue measuring 0.6 x 0.2 x 0.1 cm. Totally submitted in one cassette. C. Esophagus, Distal, Biopsy Received in formalin is one piece of cruz-white, soft tissue measuring 0.8 x 0.2 x 0.1 cm. Totally submitted in one cassette. DB August 03, 2024 10:34 PM [place] [address] Performed By: #### S #### [facility] CLIA [id number] [address] [place] [address] [place] Upper GI endoscopy 08-03-2 024 Upper GI endoscopy [facility] G[facility] Patient Name: Aiden French Procedure Date: 08/03/2024 2:54 PM Date of : 1990 Admit Type: Outpatient Age: 34 Room: [place] [address] Gender: Female Note Status: Finalized Attending MD: Edgardo Ramirez MD, [id number] Procedure: Upper GI endoscopy Indications: Heartburn Providers: Edgardo Ramirez MD Patient Profile: Refer to note in patient chart for documentation of history and physical. Referring Physician: Jose Delgado (Referring MD) Medicines: Monitored Anesthesia Care Complications: No immediate complications. Estimated blood loss: Minimal. Requesting Provider: Procedure: Pre-Anesthesia Assessment: - Prior to the procedure, a History and Physical was performed, and patient medications and allergies were reviewed. The patient's tolerance of previous anesthesia was also reviewed. The risks and benefits of the procedure and the sedation options and risks were discussed with the patient. All questions were answered, and informed consent was obtained. Prior Anticoagulants: The patient has taken no anticoagulant or antiplatelet agents. ASA Grade Assessment: See anesthesia record. After reviewing the risks and benefits, the patient was deemed in satisfactory condition to undergo the procedure. After obtaining informed consent, the endoscope was passed under direct vision. Throughout the procedure, the patient's blood pressure, pulse, and oxygen saturations were monitored continuously. The Endoscope was introduced through the mouth, and advanced to the third part of duodenum. I was present and participated during the entire procedure, including non-aguillon portions, and during the administration and monitoring of Moderate Sedation. The upper GI endoscopy was accomplished without difficulty. The patient tolerated the procedure well. Moderate Sedation: MAC anesthesia was administered by the anesthesia team. Findings: LA Grade B (one or more mucosal breaks greater than 5 mm, not extending between the tops of two mucosal folds) esophagitis with no bleeding was found 30 to 32 cm from the incisors. Biopsies were taken with a cold forceps for histology. The pathology specimen was placed into Bottle Number 3. A 3 cm hiatal hernia was present, Z-line at 32 cm and the diaphragmatic pinch at 35 cm. It was sliding type and, with breathing, was up to 6 cm in size from 32 to 38 cm. The LES appeared patulous and open at all times. The exam of the esophagus was otherwise normal. The entire examined stomach was normal. Biopsies were taken from the antrum/incisura with a cold forceps for histology. The pathology specimen was placed into Bottle Number 2. The cardia and gastric fundus were normal on retroflexion. Hiatal hernia was noted. The duodenal bulb, second portion of the duodenum and third portion of the duodenum were normal. Biopsies for histology were taken with a cold forceps for evaluation of celiac disease. The pathology specimen was placed into Bottle Number 1. Impression: - LA Grade B esophagitis with no bleeding. Biopsied. - 3 cm hiatal hernia. - Normal stomach. Biopsied. - Normal duodenal bulb, second portion of the duodenum and third portion of the duodenum. Biopsied. Recommendation: - Patient has a contact number available for emergencies. The signs and symptoms of potential delayed complications were discussed with the patient. Return to normal activities tomorrow. Written discharge instructions were provided to the patient. - Resume previous diet. - Continue present medications. Procedure Code(s): --- Professional --- 66385, Esophagogastroduode noscopy, flexible, transoral; with biopsy, single or multiple CPT copyright 2020 [employer]. All rights reserved. The codes documented in this report are preliminary and upon science writer review may be revised to meet current compliance requirements. Attending Participation: I was present and participated during the entire procedure from insertion to removal of the endoscope. Scope In: 3:06:39 PM Scope Out: 3:11:46 PM MD Edgardo Yots MD 08/03/2024 3:16:48 PM This report has been signed electronically by Edgardo Ramirez MD Number of Addenda: 0 Note Initiated On: 08/03/2024 2:54 PM Estimated Blood Loss: Estimated blood loss was minimal. Normal [facility] ANES PRE-OPon 07-29-2024 ANES PRE-OP HNO ID: [id number] Author: ERLIN MALDONADO APRN.[employer] Service: Anesthesiology Author Type: Nurse Care Assistant Type: Anesthesia Preprocedure Evaluation Filed: 08/03/2024 14:59 Note Text: ANESTHESIOLOGY DAY OF SURGERY NOTE : 1990 Procedure Information Date/Time: 08/03/24 1330 Procedure: EGD DIAGNOSTIC Location: Ambulatory Surgery Estimated body mass index is 34.76 kg/m? as calculated from the following: Height as of 07/29/24: 152.4 cm (5'). Weight as of 07/29/24: 80.7 kg (178 lb). Most recent hematocrit and potassium results: Hematocrit 37.0 04/28/2024 Potassium 3.8 04/28/2024 Relevant Problems No relevant active problems I - PHYSICAL EVALUATION AIRWAY Patient intubated: No. Tracheostomy tube not present Mallampati: II. TM distance: >3 FB. Neck ROM: full ROM without neurological symptoms. Mouth opening: adequate. Short neck: no. Thick neck: no DENTAL Dental findings: teeth intact. Additional exam findings: no II - ANESTHESIA PLAN ASA Score: 2 Anesthetic Plan: MAC The patient is not a current smoker. NPO Status: adequate Beta Radha Monitoring Plan Monitoring plan: standard ASA. Post Procedure Analgesic Plan Postoperative analgesic plan: parenteral or oral opioids and multimodal analgesia. Informed Consent Anesthetic risks, benefits, alternatives, personnel and consent discussed: yes. Patient / Responsible Constitution Party agrees to proceed: yes Patient / Surrogate agrees to blood products: blood products not planned Significant changes in the patient condition since the History and Physical, not otherwise documented in primary service progress note: no. Potential Anesthesia issues that may suggest increased risk of complications or contraindication to planned procedure: none. Vitals Value Taken Time BP 118/72 07/29/24 1456 Pulse 75 07/29/24 1456 Resp Temp SpO2 Outpatient Medications as of 08/03/2024 Medication Sig - Docosahexanoic Acid 200 mg cap Take by mouth. - sucralfate (CARAFATE) 100 mg/mL suspension Take 10 mL by mouth three times a day for 14 days. - pantoprazole DR (PROTONIX) 40 mg tablet Take 1 tablet by mouth daily before breakfast. Take on empty stomach, 1/2 hr before meal. - famotidine (PEPCID) 20 mg tablet Take 1 tablet by mouth two times a day. - sertraline (ZOLOFT) 25 mg tablet Take 1 tablet by mouth once daily. No current facility-administer ed medications on file as of 08/03/2024. I have interviewed and examined the patient. I have reviewed the medical record and/or the pre-anesthesia evaluation, pertinent labs, and test results. This contains updated information obtained within 48 hours of Surgery/Procedure. SIGNATURE: Ximena Mejia APRN.[employer] PATIENT NAME: Aiden French DATE: July 29, 2024 TIME: 4:13 PM CSN: [id number] Normal [facility] CNCOon 07-29-2024 CNCO Letter Text Normal [facility] CNOVon 07-29-2024 CNOV Office Visit ([facility]) ---- AIDEN FRENCH ([id number]) 1990 F Date Time Provider Department 07/29/24 3:05 PM JOSE DELGADO During your visit today, we recorded the following information about you: Pulse Blood pressure Weight Height 75/minute 118/72 80.7 kg 1.524 m Jose Delgado, SUSAN.[employer] 07/29/2024 7:41 PM Signed CHIEF COMPLAINT: Patient presents with: GERD: Upper abdominal pain Interval History: - The patient is a 34-year-old female presenting with gastroesophageal reflux disease and upper abdominal pain. - She reports a 14-year history of acid reflux beginning with her first , worsening in recent years, particularly post- with her latest child, born approximately six months ago. - The patient experiences persistent symptoms including a sensation of a lump in her throat, shortness of breath, and difficulty swallowing, requiring water to assist in swallowing. - She has been taking [id number] medications, Pepcid, pantoprazole, and both without significant symptom relief. - Reports constant upper abdominal pain with episodes causing significant distress, previously managed with numbing medications in the emergency room. - The patient mentions possible gallbladder issues due to family history, including her mother's and aunt's gallbladder removal, as well as maternal history of diverticulitis. - Negative for H. pylori infection based on recent blood test four weeks prior. - Reports reduced tolerance to spicy food and dairy, leading to symptom exacerbation. - Anxiety and stress are noted to potentially exacerbate gastrointestinal symptoms. Record Review: [facility] / Outside records reviewed. PAST MEDICAL HISTORY Diagnosis Date Back pain GERD (gastroesophageal reflux disease) Overweight (BMI 25.0-29.9) 11/22/2014 No past surgical history on file. Allergies: ALLERGIES No Known Allergies Medications: Docosahexanoic Acid 200 mg cap Take by mouth. pantoprazole DR (PROTONIX) 40 mg tablet Take 1 tablet by mouth daily before breakfast. Take on empty stomach, 1/2 hr before meal. famotidine (PEPCID) 20 mg tablet Take 1 tablet by mouth two times a day. sertraline (ZOLOFT) 25 mg tablet Take 1 tablet by mouth once daily. 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 Gastrointestinal: Positive for abdominal pain. Gas, Heartburn All other systems reviewed and are negative. Are you taking any blood thinners? No Physical Examination: BP 118/72 Pulse 75 Ht 5' 0 (1.52m) Wt 178 lb (80.7kg) LMP 06/16/2023 BMI 34.76 kg/(m2). Physical Exam Vitals and nursing note reviewed. Constitutional: Appearance: Normal appearance. She is normal weight. HENT: Head: Normocephalic and atraumatic. Mouth/Throat: Mouth: Mucous membranes are moist. Eyes: General: No scleral icterus. Cardiovascular: Rate and Rhythm: Normal rate and regular rhythm. Heart sounds: Normal heart sounds. Pulmonary: Breath sounds: Normal breath sounds. Abdominal: General: Abdomen is flat. Bowel sounds are normal. Palpations: Abdomen is soft. Tenderness: There is no abdominal tenderness. There is no guarding or rebound. Musculoskeletal: General: No swelling. Skin: General: Skin is warm and dry. Neurological: Mental Status: She is alert and oriented to person, place, and time. Psychiatric: Mood and Affect: Mood normal. Behavior: Behavior normal. Thought Content: Thought content normal. Judgment: Judgment normal. Assessment: 34-year-old female with history of gastroesophageal reflux disease presenting with persistent gastroesophageal reflux symptoms and upper abdominal pain. The symptoms have notably worsened . Despite multiple medication trials, her symptoms remain uncontrolled, indicating the potential need for further investigation. There is a family history suggestive of gallbladder disease, thus necessitating evaluation for biliary pathology as part of the differential diag (more content not included)... Normal [facility] CNOVon 06-15-2024 CNOV Office Visit ([facility]) ---- AIDEN FRENCH ([id number]) 1990 F Date Time Provider Department 06/15/24 2:20 PM KISHOR HERNANDEZ [facility] During your visit today, we recorded the following information about you: Pulse Respiration Blood pressure Weight 81/minute 16/minute 100/74 81.2 kg Height Last Period 1.524 m 06/16/23 Kishor Hernandez MD 06/15/2024 5:34 PM Signed Reason for Visit Patient presents with: Physical Aiden French is a 34 year old female who presents here today for CPE. Health Maintenance Hepatitis B Vaccine(1 of 3 - 19+ 3-dose series) Covid-19 Vaccine( season) Influenza Vaccine(1) Cervical Cancer Screening DELL Ybarra is a 34-year-old woman with a past medical history of reflux disease, anxiety depression and palpitations. She had a baby recently, is 4 months old. was uneventful, it was the worst one she ever had. She was very tired. Gained around 30 pounds of weight , she is feeding her baby right now. Her reflux is worse after . She also has palpitations which is not better. The only thing she drinks, Is coffee, water and tea but has not had tea in a while. Reflux is better controlled,after the protonix. No problem-specific Assessment AND Plan notes found for this encounter. PAST MEDICAL HISTORY No date: Back pain 11/22/2014: Overweight (BMI 25.0-29.9) No past surgical history on file. FAMILY HISTORY Problem Relation Age of Onset Asthma Mother Cataract Mother Cataract Maternal Grandmother Cataract Maternal Grandfather other (Heart, brain mass) Maternal Grandfather Breast Cancer Other great grandmother-p Cataract Paternal Grandmother Cataract Paternal Grandfather Social History Tobacco Use Smoking status: Former Current packs/day: 0.50 Average packs/day: 0.5 packs/day for 5.0 years (2.5 ttl pk-yrs) Types: Cigarettes Smokeless tobacco: Never Tobacco comments: vape Vaping Use Vaping status: Former Substance Use Topics Alcohol use: Not Currently Comment: occasionally Drug use: No Past medical history, appointments, medications, allergies reviewed. Pertinent Lab/Diagnostic Studies are reviewed and discussed today Current Outpatient Medications: pantoprazole DR (PROTONIX) 40 mg tablet famotidine (PEPCID) 20 mg tablet sertraline (ZOLOFT) 25 mg tablet no.167-folic acid-dha 400 mcg- 25 mg chew Review of Systems CONSTITUTIONAL: No fevers, chills, nightsweats, unintended weight loss HEENT: Denies frequent or severe heaches, nasal congestion/sinus symptoms, problematic allergy problems. EYES: No diplopia or blurry vision. CARDIOVASCULAR: No chest pain, dyspnea, palpitations, orthopnea, PND, ankle edema. PULM: No dyspnea, unexplained cough. GI: No dysphagia/odynophag ia, problematic reflux, constipation, diarrhea, changes in stool habits, hematochezia, melena. : No new urinary complaints, including dysuria, gross hematuria or pyuria. NEURO: No new balance problems, peripheral weakness/paresthesi as or numbness of concern. MUSC-SKEL: No new joint pain, swelling, or erythema. PSY: No concerns regarding depression, anxiety or panic. INTEGUMENTARY: No new skin changes (rash, new or changing mole, new growth) Physical Exam BP 100/74 Pulse 81 Resp 16 Ht 152.4 cm (5') Wt 81.2 kg (179 lb) LMP 06/16/2023 (Exact Date) Yes BMI 34.96 kg/m? General appearance: Well appearing, alert, in no acute distress, well-hydrated, well nourished. Skin: Skin color, texture, turgor normal, no suspicious rashes or lesions Head: Normocephalic, no masses, lesions, tenderness or abnormalities Eyes: Anicteric sclera. Pupils are equally round and reactive to light. Extraocular movements are intact. Ears: External ears normal, canals clear Nose/Sinuses: Nares normal, septum midline, mucosa normal, no drainage or sinus tenderness Oropharynx: Lips, mucosa, and tongue normal, teeth and gums normal, oropharynx normal Neck: Supple, no adenopathy; thyroid symmetric, normal size, no bruits Back: Normal exam Lungs: Lungs clear to auscultation. No wheezing, rhonchi, rales Heart: RRR without murmur, gallop, or rubs. No ectopy Abdomen: Normal abdominal exam, Abdomen soft, non-tender. Bowel sounds normal. No masses, organomegaly Extremities: No deformities, edema, skin discoloration, clubbing or cyanosis. Good capillary refill. Musculoskeletal: No joint swelling, deformity, or tenderness Peripheral pulses: Normal Neuro: Gait normal. Reflexes normal and symmetric. Sensation grossly intact. ASSESSMENT/PLAN: 1. Annual physical exam - ICD9: V70.0, ICD10: Z00.00 - Counseled on healthy diet and regular exercise Kishor Hernandez MD Allergies As of Date: 06/15/2024 (No Known Allergies) Date Reviewed: 06/15/2024 Reviewed by: Patrizia Velázquez MA - Fully Assessed Reason for Visit: Phy (more content not included)... Normal [facility] H. pylori IgG IA Qlon 2023 H. PYLORI IGG, QUAL Negative Normal Negative [facility] Comment on above: Order Comment: Speci men Type: BLOOD SPECIMEN Ordering Facility: [facility] Address: [address] [place] [address] Result Comment: Chiara ot exclude H. pylori infection if the specimen collected 3-4 weeks after onset of symptoms. Performed By: #### 1 7859-0 #### [facility] CLIA [id number] [address] [place] [address] [place] CNOVon 06-09-2024 CNOV Office Visit (INTMWS) ---- AIDEN FRENCH ([id number]) 1990 F Date Time Provider Department 06/09/24 4:40 PM OLDER, DARYA SCHRADER During your visit today, we recorded the following information about you: Pulse Respiration Blood pressure Weight 72/minute 16/minute 112/78 79.8 kg Darya Quiñones APRN.CNP 06/09/2024 6:33 PM Signed CC: Patient presents with: Recheck: 6 week follow up HPI Aidenhillary French is a 34 year old female who presents today for follow up on chronic palpitaitons and sternal pain. Pepcid restarted to see if upper abdominal and sternal pain resolved and ZIO ordered. ECHO also ordered as she has a grandfather who passed young of unknown heart related concerns but has been denied by insurance. Per patient she spoke to her mom since last visit and her mom said she was tested for whatever the issue was when she was a child and was negative. Has had some improvement in the sternal pain with restarting the pepcid but also forgets to take twice a day regularly. Pain is not as often and not as severe. Still with a lot of heartburn leading to regurgitation and upper abdominal discomfort. Denies vomiting but will burp and acid will be regurgitated into her mouth. Also denies difficulty swallowing but states he throat gets really dry and things sometimes seem to take sometime going down. Denies bowel changes, fever, chills, shortness of breath, edema, chest pressure, cough, wheezing, or change in chronic palpitations. ZIO patch unconcerning. REVIEW OF SYSTEMS See HPI PAST MEDICAL HISTORY No date: Back pain 11/22/2014: Overweight (BMI 25.0-29.9) No past surgical history on file. ALLERGIES Patient has no known allergies. MEDICATIONS famotidine (PEPCID) 20 mg tablet Take 1 tablet by mouth two times a day. sertraline (ZOLOFT) 25 mg tablet Take 1 tablet by mouth once daily. no.167-folic acid-dha 400 mcg- 25 mg chew Take 1 tablet by mouth once daily. multivit,calc,mins/ iron/folic (ONE-A-DAY WOMENS FORMULA ORAL) Take by mouth. (Patient not taking: Reported on 05/01/2024) FAMILY HISTORY Problem Relation Age of Onset Asthma Mother Cataract Mother Cataract Maternal Grandmother Cataract Maternal Grandfather other (Heart, brain mass) Maternal Grandfather Breast Cancer Other great grandmother-p Cataract Paternal Grandmother Cataract Paternal Grandfather Social History Tobacco Use Smoking status: Former Current packs/day: 0.50 Average packs/day: 0.5 packs/day for 5.0 years (2.5 ttl pk-yrs) Types: Cigarettes Smokeless tobacco: Never Tobacco comments: vape Vaping Use Vaping status: Former Substance Use Topics Alcohol use: Not Currently Comment: occasionally Drug use: No PHYSICAL EXAM BP 112/78 Pulse 72 Resp 16 Wt 79.8 kg (175 lb 14.8 oz) LMP 03/09/2024 (Exact Date) SpO2 98% BMI 31.16 kg/m? General Appearance: well appearing, in no acute distress, alert Pysch: mood and affect broad and appropriate Eyes: conjunctiva pink and moist, no icterus, sclera white, non-injected Lungs: Lungs clear to auscultation. No wheezing, rhonchi, rales. Heart: RRR without murmur, gallop, or rubs. No ectopy Abdomen: Abdomen soft, non-tender. Bowel sounds normal. No masses, organomegaly Health maintenance reviewed with patient: Hepatitis B Vaccine(1 of 3 - 19+ 3-dose series) Never done Covid-19 Vaccine(2022- season) Never done Influenza Vaccine(1) due on 06/06/2024 Cervical Cancer Screening due on 07/11/2024 DTaP,Tdap,Td Vaccine(2 - Td or Tdap) due on 04/19/2026 Hepatitis C Screening Completed HIV Screening Completed HPV Vaccine Aged Out DATA REVIEWED: Most recent labs and imaging results. ASSESSMENT/PLAN: 1. Gastroesophageal reflux disease, unspecified whether esophagitis present - ICD9: 530.81, ICD10: K21.9 (primary diagnosis) - pantoprazole in AM and pepcid before bed. Will check for h-pylori as well. - Discussed lifestyle modifications including losing weight, limiting caffeine, no meals three hours before sleep, and head of bed elevation - H PYLORI IGG AB - CONSULT TO GASTROENTEROLOGY 2. Upper abdominal pain - ICD9: 789.09, ICD10: R10.10 As above - assessment normal - H PYLORI IGG AB - CONSULT TO GASTROENTEROLOGY 3. Sternal pain - ICD9: 786.50, ICD10: R07.89 Improved with improvement of GERD With this knowledge no need for ECHO at this time. 4. Palpitations - ICD9: 785.1, ICD10: R00.2 No concerns on ZIO Possibly anxiety Prescription instructions reviewed with patient as applicable. Potential red flag symptoms discussed with the patient. Reviewed appropriate action plan to take if red flag symptoms occur. Patient agreeable to treatment plan. Darya Quiñones APRN.CNP Referring Provider: SELF [200] Allergies As of Date: 06/09/2024 (No Known Allergies) Date Reviewed: 05/01/2024 Reviewed by: Jen Dickey MA - Precious Costa (more content not included)... Normal [facility] [place] 05-27-2024 BRIAN Telephone (MACRINA) ---- AIDEN FRENCH F ([id number]) 1990 F Date Time Provider Department 05/27/24 DARYA QUIÑONES During your visit today, we recorded the following information about you: Darya Quiñones APRN.CNP 05/27/2024 3:19 PM Signed Denied coverage for Echocardiogram by insurance. How is she feeling? Has she had improvement of symptoms? If not, we can talk further at follow up appointment to send appeal letter. Thank you JOZEF Hua Beth, LPN 05/28/2024 1:10 PM Signed Phoned patient went over notes below from Darya Quiñones [employer]. Patient said she is feeling the same. She has no changes in her symptoms at all. Patient said she called her insurance and was told they want to see heart monitor results first before would ok the ECHO. Darya Quiñones APRN.CNP 05/31/2024 12:58 PM Signed Will discuss further at upcoming appointment. Darya Quiñones APRN.CNP Allergies As of Date: 05/27/2024 (No Known Allergies) Date Reviewed: 05/01/2024 Reviewed by: Jen Dickey MA - Fully Assessed Reason for Visit: Appeal [Other] Prescriptions as of 05/31/2024 - famotidine (PEPCID) 20 mg tablet Take 1 tablet by mouth two times a day. - sertraline (ZOLOFT) 25 mg tablet Take 1 tablet by mouth once daily. - no.167-folic acid-dha 400 mcg- 25 mg chew Take 1 tablet by mouth once daily. - multivit,calc,mins/ iron/folic (ONE-A-DAY WOMENS FORMULA ORAL) Take by mouth. Problem List As Of Date 05/27/2024 Noted Resolved Rhinitis [J31.0] 11/02/2014 Eustachian tube dysfunction [H69.90] 11/02/2014 Overweight (BMI 25.0-29.9) [E66.3] 11/22/2014 05/24/2021 Back ache [M54.9] 11/22/2014 Anxiety and depression [F41.9, F32.A] 05/24/2021 Situational depression [F43.21] 05/24/2021 Panic attacks [F41.0] 05/24/2021 Attention deficit [R41.840] 10/31/2021 Rubella non-immune status, antepartum [O09.899,* Supervision of other high risk pregnancies, fir*07/16/2023 Pap smear of cervix with ASCUS, cannot exclude *10/15/2023 Request for sterilization [Z30.2] 11/17/2023 Abnormal glucose in , antepartum [O99.*11/18/2023 Gestational diabetes mellitus, class A1 [O24.41*11/19/2023 Encounter Status:Closed by DARYA QUIÑONES on 05/31/24 Normal [facility] CNOVal 05-01-2024 CNOV Office Visit (UCWSTR) ---- AIDEN FRENCH ([id number]) 1990 F Date Time Provider Department 05/01/24 9:30 AM AGUSTINA SPARKS [facility] During your visit today, we recorded the following information about you: Temperature Pulse Respiration Blood pressure 98 degrees 70/minute 18/minute 122/90 Weight 79.1 kg Agustina Sparks PA 05/01/2024 9:44 AM Signed This note was created using Chasqui Bus[employer]. Subjective Aiden French is a 33 year old female. HPI 33-year-old female presents for wasp sting to left arm. Patient has never been stung by a wasp in the past. Patient states that she noticed some blistering around the area. She states that the redness has gotten significantly worse in the last 24 hours. Her arm is swollen. She denies any fevers. No numbness or tingling in the arm. No difficulty breathing or swallowing. She is breast-feeding. She has been putting cortisone ointment on it, calamine, without improvement. PAST MEDICAL HISTORY Diagnosis Date Back pain Overweight (BMI 25.0-29.9) 11/22/2014 No past surgical history on file. ALLERGIES Patient has no known allergies. MEDICATIONS triamcinolone (KENALOG) 0.025 % cream Apply to affected area two times a day for 7 days. famotidine (PEPCID) 20 mg tablet Take 1 tablet by mouth two times a day. sertraline (ZOLOFT) 25 mg tablet Take 1 tablet by mouth once daily. no.167-folic acid-dha 400 mcg- 25 mg chew Take 1 tablet by mouth once daily. predniSONE (DELTASONE) 20 mg tablet Take 2 tablets by mouth once daily for 4 days. Take daily with food. cephALEXin (KEFLEX) 500 mg capsule Take 1 capsule by mouth four times daily for 5 days. multivit,calc,mins/ iron/folic (ONE-A-DAY WOMENS FORMULA ORAL) Take by mouth. (Patient not taking: Reported on 05/01/2024) FAMILY HISTORY Problem Relation Age of Onset [...] Not Currently Comment: occasionally Drug use: No Review of Systems Constitutional: Negative for chills and fever. HENT: Negative for congestion, ear pain and sore throat. Respiratory: Negative for cough and shortness of breath. Cardiovascular: Negative for chest pain. Gastrointestinal: Negative for diarrhea and vomiting. Skin: Positive for color change and rash. Objective BP 122/90 Pulse 70 Temp 36.7 ?C (98 ?F) Resp 18 Wt 79.1 kg (174 lb 6.1 oz) LMP 03/09/2024 (Exact Date) SpO2 98% BMI 30.89 kg/m? Physical Exam Vitals and nursing note reviewed. Constitutional: General: She is not in acute distress. Appearance: Normal appearance. She is not toxic-appearing. Cardiovascular: Rate and Rhythm: Normal rate and regular rhythm. Pulmonary: Effort: Pulmonary effort is normal. Breath sounds: Normal breath sounds. Skin: General: Skin is warm and dry. Findings: Erythema and rash present. Rash is vesicular. Comments: Patient has multiple small vesicles noted over left upper arm where patient was stung by wasp. She has a large area of surrounding erythema and swelling of the left upper arm/bicep area. Tender to touch. No fluctuance or abscess. No lymphatic streaking. Normal ROM of the arm, shoulder, elbow. Pulses intact left upper extremity. Neurological: Mental Status: She is alert. Assessment and Plan ASSESSMENT/PLAN: 1. Local reaction to bee sting, accidental or unintentional, initial encounter - ICD9: 989.5, E905.3, ICD10: T63.441A -Due to worsening swelling and redness over the past 2 days with no improvement with steroid cream, Rx for prednisone given. Patient is breast-feeding. Advised not to breast-feed for several hours after taking the prednisone. -If redness continues to worsen over the next 24 to 48 hours, may start Keflex. Diagnosis and treatment plan were discussed and questions were answered to the patient's satisfaction. Pt acknowledged understanding of concepts and follow up plan. Specific signs and symptoms that would indicate the need for higher level of care were discussed in detail warranting prompt ER evaluation. BLACK Palomo Allergies As of Date: 05/01/2024 (No Known Allergies) Date Reviewed: 05/01/2024 Reviewed by: Jen Dickey MA - Fully Assessed Reason for Visit: Trauma [112] Cmt: Wasp sting on left arm x 2 days Primary Visit Diagnosis:Local reaction to bee sting, accidental or unintentional, initial encounter [T63.441A] Order(s): (more content not included)... Normal [facility] CNOVon 04-30-2024 CNOV Office Visit (UCWSTR) ---- AIDEN FRENCH ([id number]) 1990 F Date Time Provider Department 04/30/24 9:45 AM ABEL THORNTON [facility] During your visit today, we recorded the following information about you: Temperature Pulse Respiration Blood pressure 97.2 degrees 62/minute 18/minute 110/72 Weight 79 kg Abel Thornton APRN.[employer] MECH[employer]IC 04/30/2024 11:40 AM Signed Subjective Came in with complaints of wasp sting on her left upper arm. Patient says it happened yesterday. Patient says it is red and sore. Patient says it does itch a little. Says it does feel little tingly. Patient denies any other symptoms. Patient denies any difficulty with range of motion. The history is provided by the patient. No deli slicer was used. Review of Systems Constitutional: Negative. Objective Physical Exam Constitutional: Appearance: Normal appearance. Pulmonary: Effort: Pulmonary effort is normal. Skin: Comments: Blue area horan where patient appears to be stung. Red area horan erythema and warmth around the area consistent with inflammatory response. It is blanchable. Neurological: Mental Status: She is alert. PAST MEDICAL HISTORY Diagnosis Date Back pain Overweight (BMI 25.0-29.9) 11/22/2014 No past surgical history on file. ALLERGIES Patient has no known allergies. MEDICATIONS famotidine (PEPCID) 20 mg tablet Take 1 tablet by mouth two times a day. sertraline (ZOLOFT) 25 mg tablet Take 1 tablet by mouth once daily. no.167-folic acid-dha 400 mcg- 25 mg chew Take 1 tablet by mouth once daily. triamcinolone (KENALOG) 0.025 % cream Apply to affected area two times a day for 7 days. multivit,calc,mins/ iron/folic (ONE-A-DAY WOMENS FORMULA ORAL) Take by mouth. (Patient not taking: Reported on 04/30/2024) FAMILY HISTORY Problem Relation Age of Onset [...] Not Currently Comment: occasionally Drug use: No ASSESSMENT/PLAN: 1. Itch - ICD9: 698.9, ICD10: L29.9 - TRIAMCINOLONE ACETONIDE 0.025 % TOPICAL CREAM Patient was educated about proper use of medication and supportive therapies. Patient was educated not to put medication on face armpits or private areas. Patient will follow-up if signs and symptoms seem to be changing. Patient was instructed on things to watch for that would mean it changed from inflammatory response to a possible bacterial infection. Patient was okay with this care plan. Abel Thornton APRN.[employer] MECH[employer]IC Allergies As of Date: 04/30/2024 (No Known Allergies) Date Reviewed: 04/30/2024 Reviewed by: Lisa Merida LPN - Fully Assessed Reason for Visit: Insect Bites AND Stings [4227] Cmt: Left bicep area, redness, swelling, pain, Left arm area numb and tingly x 1 day Primary Visit Diagnosis:Itch [L29.9] Order(s):triamcinol one (KENALOG) 0.025 % creamApply to affected area two times a day for 7 days.Disp: 15 gRfl: 0 Prescriptions as of 04/30/2024 - triamcinolone (KENALOG) 0.025 % cream Apply to affected area two times a day for 7 days. - famotidine (PEPCID) 20 mg tablet Take 1 tablet by mouth two times a day. - sertraline (ZOLOFT) 25 mg tablet Take 1 tablet by mouth once daily. - no.167-folic acid-dha 400 mcg- 25 mg chew Take 1 tablet by mouth once daily. - multivit,calc,mins/ iron/folic (ONE-A-DAY WOMENS FORMULA ORAL) Take by mouth. Problem List As Of Date 04/30/2024 Noted Resolved Rhinitis [J31.0] 11/02/2014 Eustachian tube dysfunction [H69.90] 11/02/2014 Overweight (BMI 25.0-29.9) [E66.3] 11/22/2014 05/24/2021 Back ache [M54.9] 11/22/2014 Anxiety and depression [F41.9, F32.A] 05/24/2021 Situational depression [F43.21] 05/24/2021 Panic attacks [F41.0] 05/24/2021 Attention deficit [R41.840] 10/31/2021 Rubella non-immune status, antepartum [O09.899,* Supervision of other high risk pregnancies, fir*07/16/2023 Pap smear of cervix with ASCUS, cannot exclude *10/15/2023 Request for sterilization [Z30.2] 11/17/2023 Abnormal glucose in , antepartum [O99.*11/18/2023 Gestational diabetes mellitus, class A1 [O24.41*11/19/2023 Prescriptions ordered this encounter Disp Refills Start End TRIAMCINOLONE ACETONIDE 0.025 % TOPI* 15 g 0 04/30/2024 05/07/2024 Route: TOPICAL Sig: Apply to affected area two times a day for 7 days. Letter Text Encounter Status:Closed by DO HILLARY (more content not included)... Normal [facility] CBC W Auto Differential pane l (Bld)on 04-28-2024 Basophils (Bld) [#/Vol] 0.08 10*3/uL Normal <0.11 [facility] Comment on above: Order Comment: Speci men Type: BLOOD SPECIMENOrdering Facility: [facility] Address: [address] [place] [address] Performed By: #### 5 7021-8 ####[facility] LABCLIA [id number] [place] [address] [place] Basophils/100 WBC (Bld) 0.8 % Normal [facility] Comment on above: Order Comment: Speci men Type: BLOOD SPECIMENOrdering Facility: [facility] Address: [address] [place] [address] Performed By: #### 5 7021-8 ####[facility] LABCLIA [id number] [place] [address] [place] Differential cell count method Nom (Bld) Auto Normal [facility] Comment on above: Order Comment: Speci men Type: BLOOD SPECIMENOrdering Facility: [facility] Address: [address] [place] [address] Performed By: #### 5 7021-8 ####[facility] LABCLIA [id number] [place] [address] [place] Eosinophils (Bld) [#/Vol] 0.47 10*3/uL High <0.46 [facility] Comment on above: Order Comment: Speci men Type: BLOOD SPECIMENOrdering Facility: [facility] Address: [address] [place] [address] Performed By: #### 5 7021-8 ####[facility] LABCLIA [id number] [place] [address] [place] Eosinophils/100 WBC (Bld) 4.9 % Normal [facility] Comment on above: Order Comment: Speci men Type: BLOOD SPECIMENOrdering Facility: [facility] Address: [address] [place] [address] Performed By: #### 5 7021-8 ####[facility] LABCLIA [id number] [place] [address] [place] Erythrocyte distribution width (RBC) [Ratio] 13.2 % Normal 11.5-15.0 [facility] Comment on above: Order Comment: Speci men Type: BLOOD SPECIMENOrdering Facility: [facility] Address: [address] [place] [address] Performed By: #### 5 7021-8 ####[facility]CLIA [id number] [place] [address] [place] Hematocrit (Bld) [Volume fraction] 37.0 % Normal 36.0-46.0 [facility] Comment on above: Order Comment: Speci men Type: BLOOD SPECIMENOrdering Facility: [facility] Address: [address] [place] [address] Performed By: #### 5 7021-8 ####[facility] LABIA [id number] [place] [address] [place] Hemoglobin (Bld) [Mass/Vol] 12.2 g/dL Normal 11.5-15.5 [facility] Comment on above: Order Comment: Speci men Type: BLOOD SPECIMENOrdering Facility: [facility] Address: [address] [place] [address] Performed By: #### 5 7021-8 ####[facility] LABIA [id number] [place] [address] [place] Immature granulocytes (Bld) [#/Vol] 10*3/uL Normal <0.10 [facility] Comment on above: Order Comment: Speci men Type: BLOOD SPECIMENOrdering Facility: [facility] Address: [address] [place] [address] Performed By: #### 5 7021-8 ####[facility] LABCLIA [id number] [place] [address] [place] Immature granulocytes/100 WBC (Bld) 0.2 % Normal [facility] Comment on above: Order Comment: Speci men Type: BLOOD SPECIMENOrdering Facility: [facility] Address: [address] [place] [address] Performed By: #### 5 7021-8 ####[facility] LABCLIA [id number] [place] [address] [place] Lymphocytes (Bld) [#/Vol] 3.03 10*3/uL Normal 1.00-4.00 [facility] Comment on above: Order Comment: Speci men Type: BLOOD SPECIMENOrdering Facility: [facility] Address: [address] [place] [address] Performed By: #### 5 7021-8 ####[facility] LABCLIA [id number] [place] [address] [place] Lymphocytes/100 WBC (Bld) 31.7 % Normal [facility] Comment on above: Order Comment: Speci men Type: BLOOD SPECIMENOrdering Facility: [facility] Address: [address] [place] [address] Performed By: #### 5 7021-8 ####[facility] LABCLIA [id number] [place] [address] [place] MCH (RBC) [Entitic mass] 30.1 pg Normal 26.0-34.0 [facility] Comment on above: Order Comment: Speci men Type: BLOOD SPECIMENOrdering Facility: [facility] Address: [address] [place] [address] Performed By: #### 5 7021-8 ####[facility] LABCLIA [id number] [place] [address] [place] MCHC (RBC) [Mass/Vol] 33.0 g/dL Normal 30.5-36.0 [facility] Comment on above: Order Comment: Speci men Type: BLOOD SPECIMENOrdering Facility: [facility] Address: [address] [place] [address] Performed By: #### 5 7021-8 ####[facility] LABCLIA [id number] [place] [address] [place] MCV (RBC) [Entitic vol] 91.4 fL Normal 80.0-100.[address] [facility] Comment on above: Order Comment: Speci men Type: BLOOD SPECIMENOrdering Facility: [facility] Address: [address] [place] [address] Performed By: #### 5 7021-8 ####[facility] LABIA [id number] [place] [address] [place] Monocytes (Bld) [#/Vol] 0.68 10*3/uL Normal <0.87 [facility] Comment on above: Order Comment: Speci men Type: BLOOD SPECIMENOrdering Facility: [facility] Address: [address] [place] [address] Performed By: #### 5 7021-8 ####[facility] LABIA [id number] [place] [address] [place] Monocytes/100 WBC (Bld) 7.1 % Normal [facility] Comment on above: Order Comment: Speci men Type: BLOOD SPECIMENOrdering Facility: [facility] Address: [address] [place] [address] Performed By: #### 5 7021-8 ####[facility] LABIA [id number] [place] [address] [place] Neutrophils (Bld) [#/Vol] 5.27 10*3/uL Normal 1.45-7.50 [facility] Comment on above: Order Comment: Speci men Type: BLOOD SPECIMENOrdering Facility: [facility] Address: [address] [place] [address] Performed By: #### 5 7021-8 ####[facility] LABIA [id number] [place] [address] [place] Neutrophils/100 WBC (Bld) 55.3 % Normal [facility] Comment on above: Order Comment: Speci men Type: BLOOD SPECIMENOrdering Facility: [facility] Address: [address] [place] [address] Performed By: #### 5 7021-8 ####[facility] LABCLIA [id number] [place] [address] [place] Nucleated RBC (Bld) [#/Vol] 10*3/uL Normal <0.01 [facility] Comment on above: Order Comment: Speci men Type: BLOOD SPECIMENOrdering Facility: [facility] Address: [address] [place] [address] Performed By: #### 5 7021-8 ####[facility] LABCLIA [id number] [place] [address] [place] Nucleated RBC/100 WBC (Bld) [Ratio] 0.0 /100 WBC Normal [facility] Comment on above: Order Comment: Speci men Type: BLOOD SPECIMENOrdering Facility: [facility] Address: [address] [place] [address] Performed By: #### 5 7021-8 ####[facility] LABCLIA [id number] [place] [address] [place] Platelet mean volume (Bld) [Entitic vol] 9.7 fL Normal 9.0-12.7 [facility] Comment on above: Order Comment: Speci men Type: BLOOD SPECIMENOrdering Facility: [facility] Address: [address] [place] [address] Performed By: #### 5 7021-8 ####[facility] LABIA [id number] [place] [address] [place] Platelets (Bld) [#/Vol] 355 10*3/uL Normal 150-400 [facility] Comment on above: Order Comment: Speci men Type: BLOOD SPECIMENOrdering Facility: [facility] Address: [address] [place], [place] [address] Performed By: #### 5 7021-8 ####[facility] LABCLIA [id number] [place] [address] [place] RBC (Bld) [#/Vol] 4.05 10*6/uL Normal 3.90-5.20 [facility] Comment on above: Order Comment: Speci men Type: BLOOD SPECIMENOrdering Facility: [facility] Address: [address] [place] [address] Performed By: #### 5 7021-8 ####[facility] LABCLIA [id number] [place] [address] [place] WBC (Bld) [#/Vol] 9.55 10*3/uL Normal 3.70-11.00 [facility] Comment on above: Order Comment: Speci men Type: BLOOD SPECIMENOrdering Facility: [facility] Address: [address] [place] [address] Performed By: #### 5 7021-8 ####[facility] LABIA [id number] [address] [place] CNOVon 04-28-2024 CNOV Office Visit (INTMWS) ---- AIDEN FRENCH ([id number]) 1990 F Date Time Provider Department 04/28/24 3:40 PM DARYA QUIÑONES INTMWS During your visit today, we recorded the following information about you: Pulse Respiration Blood pressure Weight 92/minute 16/minute 112/70 80.3 kg Darya Quiñones APRN.CNP 04/28/2024 7:17 PM Signed CC: Patient presents with: Physical: Annual, review medications HPI Aiden Walden Manolo is a 33 year old female who presents today for annual exam but has multiple concerns. Had a baby almost 3 months ago and is still . Has had lower sternum upper abdominal pressure after eating for years but is getting worse. Self resolves after hours but immediately will reoccur with eating or drinking water or taking anything orally. Seems to be getting worse over the last few weeks and is occurring not just with eating or drinking but at random times as well. Seems like food is slow to go down but does not get stuck. Will feel like she has to take a deep breath when relaxing but has no shortness of breath when taking stairs. Also with chronic palpitaitons that occur one day every 1-2 weeks. These occur randomly and are not with any certain activity or position. Can last for a few minutes and have repeated episodes throughout the day. Has had this sicne her 20s and has never been worked up. Was told it was due to her anxiety but had no improvement with anxiety becoming uncontrolled. Grandfather suddnely due to cardiac cause in his 30s but she is unsure what it was. Denies choking, coughing, wheezing, fever, chills, recent infection, syncope, weakness, headaches, N/V/D, or constipation. REVIEW OF SYSTEMS See HPI PAST MEDICAL HISTORY Diagnosis Date Back pain Overweight (BMI 25.0-29.9) 11/22/2014 No past surgical history on file. ALLERGIES Patient has no known allergies. MEDICATIONS sertraline (ZOLOFT) 25 mg tablet Take 1 tablet by mouth once daily. famotidine (PEPCID) 20 mg tablet Take 1 tablet by mouth two times a day. no.167-folic acid-dha 400 mcg- 25 mg chew Take 1 tablet by mouth once daily. multivit,calc,mins/ iron/folic (ONE-A-DAY WOMENS FORMULA ORAL) Take by mouth. [...] Not Currently Comment: occasionally Drug use: No PHYSICAL EXAM BP 112/70 Pulse 92 Resp 16 Wt 80.3 kg (177 lb) LMP 03/09/2024 (Exact Date) SpO2 99% BMI 31.35 kg/m? General Appearance: well appearing, in no acute distress, alert Skin: Skin color, texture, turgor normal for age; Eyes: conjunctiva pink and moist, no icterus, sclera white, non-injected Neck: Thyroid normal size and symmetric without palpable nodules, No adenopathy Lymph nodes: No cervical lymphadenopathy and No supraclavicular lymphadenopathy Lungs: Lungs clear to auscultation. No wheezing, rhonchi, rales. Heart: RRR without murmur, gallop, or rubs. No ectopy Abdomen: Abdomen soft, non-tender. Bowel sounds normal. No masses, organomegaly Health maintenance reviewed with patient: Hepatitis B Vaccine(1 of 3 - 19+ 3-dose series) Never done Covid-19 Vaccine( - 2022- season) Never done Cervical Cancer Screening due on 07/11/2024 Influenza Vaccine(1) due on 06/06/2024 DTaP,Tdap,Td Vaccine(2 - Td or Tdap) due on 04/19/2026 Hepatitis C Screening Completed HIV Screening Completed HPV Vaccine Aged Out DATA REVIEWED: No new labs EKG Interpretation: RHYTHM: Normal sinus rhythm at 62 beats per minute AXIS: Normal axis INTERVALS: Normal MA interval QRS COMPLEX: Normal ST SEGMENT: Normal ST-T segments QT INTERVAL: Normal COMPARED WITH PRIOR: None available ASSESSMENT/PLAN: 1. Sternal pain - ICD9: 786.50, ICD10: R07.89 (primary diagnosis) Probable due to GERD but with family history of early cardiac , will further evaluate. - ECHO - PERFLUTREN LIPID MICROSPHERES 1.1 MG/ML INJECTION IN NS 10 ML - SODIUM CHLORIDE 0.9 % (FLUSH) INJECTION SYRINGE - ECG COMPLETE - COMPLETE BLOOD COUNT AND DIFFERENTIAL - COMPREHENSIVE METABOLIC PANEL - THYROID STIMULATING HORMONE - MAGNESIUM - OUTSIDE VENDOR CARDIAC OUTPATIENT EXTENDED RHYTHM RECORDING (WITHOUT TELEMETRY) 2. Palpitations - ICD9: 785.1, ICD10: R00.2 Cause unknown, needs further evaluated. - ECHO - PERFLUTREN LIPID MICROSPHERES 1.1 MG/ML INJECTION IN NS 10 ML - (more content not included)... Normal [facility] Comprehensive metabolic 2000 panelon 04-28-2024 Albumin [Mass/Vol] 4.1 g/dL Normal 3.9-4.9 [facility] Comment on above: Order Comment: Speci men Type: BLOOD SPECIMENOrdering Facility: [facility] Address: [address] [place] [address] Performed By: #### 1 9123-9, 3016-3, 34312-8 ####[facility] LABCLIA [id number] [place] [address] [place] ALP [Catalytic activity/Vol] 81 U/L Normal 34-123 [facility] Comment on above: Order Comment: Speci men Type: BLOOD SPECIMENOrdering Facility: [facility] Address: [address] [place] [address] Performed By: #### 1 9123-9, 3015-3, 73050-3 ####[facility] LABCLIA [id number] [place] [address] [place] ALT [Catalytic activity/Vol] 34 U/L Normal 7-38 [facility] Comment on above: Order Comment: Speci men Type: BLOOD SPECIMENOrdering Facility: [facility] Address: [address] [place] [address] Performed By: #### 1 9123-9, 3015-3, 20090-9 ####[facility] LABCLIA [id number] [place] [address] [place] Anion gap [Moles/Vol] 11 mmol/L Normal 8-15 [facility] Comment on above: Order Comment: Speci men Type: BLOOD SPECIMENOrdering Facility: [facility] Address: [address] [place] [address] Performed By: #### 1 9123-9, 6-3, 71020-6 ####[facility] LABCLIA [id number] [address] [address] [place] AST [Catalytic activity/Vol] 29 U/L Normal 13-35 [facility] Comment on above: Order Comment: Speci men Type: BLOOD SPECIMENOrdering Facility: [facility] Address: [address] [place] [address] Performed By: #### 1 9123-9, 301-3, 65665-8 ####[facility] LABCLIA [id number] [place] [address] [place] Bilirubin [Mass/Vol] 0.4 mg/dL Normal 0.2-1.3 [facility] Comment on above: Order Comment: Speci men Type: BLOOD SPECIMENOrdering Facility: [facility] Address: [address] [place] [address] Performed By: #### 1 9123-9, 3015-3, 22596-3 ####[facility] LABCLIA [id number] [place] [address] [place] Calcium [Mass/Vol] 9.0 mg/dL Normal 8.5-10.2 [facility] Comment on above: Order Comment: Speci men Type: BLOOD SPECIMENOrdering Facility: [facility] Address: [address] [place] [address] Performed By: #### 1 9123-9, 3015-3, 64053-5 ####[facility] LABCLIA [id number] [place] [address] [place] Chloride [Moles/Vol] 106 mmol/L Normal 98-107 [facility] Comment on above: Order Comment: Speci men Type: BLOOD SPECIMENOrdering Facility: [facility] Address: [address] [place], [place] [address] Performed By: #### 1 9123-9, 3015-3, 72175-4 ####[facility] LABCLIA [id number] [address] [address] [place] CO2 [Moles/Vol] 23 mmol/L Normal 22-30 [facility] Comment on above: Order Comment: Speci men Type: BLOOD SPECIMENOrdering Facility: [facility] Address: [address] [place] [id number] Performed By: #### 1 9123-9, 3, ####[facility] LABCLIA [id number] [address] [address] [place] Creatinine [Mass/Vol] 0.80 mg/dL Normal 0.58-0.96 [facility] Comment on above: Order Comment: Speci men Type: BLOOD SPECIMENOrdering Facility: [facility] Address: [address] [place] [address] Performed By: #### 1 9123-9, 3015-12, ####[facility] LABCLIA [id number] [place] [address] [place] Creatinine and Glomerular filtration rate.predicted panel (S/P/Bld) 101 mL/min/1.73m??? Normal >=60 [facility] Comment on above: Order Comment: Speci men Type: BLOOD SPECIMENOrdering Facility: [facility] Address: [address] [place] [address] Result Comment: Maureen mated Glomerular Filtration Rate (eGFR) is calculated using the 2020 CKD-EPI creatinine equation. This equation utilizes serum creatinine, sex, and age as parameters. The creatinine assay has traceable calibration to isotope dilution-mass spectrometry. Refer to KDIGO guidelines for clinical interpretation. In patients with unstable renal function, e.g. those with acute kidney injury, the eGFR may not accurately reflect actual GFR. Performed By: #### 1 9123-9, 3015-12, ####[facility] LABCLIA [id number] [place] [address] [place] Glucose [Mass/Vol] 89 mg/dL Normal 74-99 [facility] Comment on above: Order Comment: Speci men Type: BLOOD SPECIMENOrdering Facility: [facility] Address: [address], [place] [address] Result Comment: The [place] Diabetes Association (ADA) provides guidance for cutoff values for fasting glucose and random glucose. The ADA defines fasting as no caloric intake for at least 8 hours. Fasting plasma glucose results between 100 to 125 mg/dL indicate increased risk for diabetes (prediabetes). Fasting plasma glucose results greater than or equal to 126 mg/dL meet the criteria for diagnosis of diabetes. In the absence of unequivocal hyperglycemia, results should be confirmed by repeat testing. In a patient with classic symptoms of hyperglycemia or hyperglycemic crisis, random plasma glucose results greater than or equal to 200 mg/dL meet the criteria for diagnosis of diabetes. Reference: Standards of Medical Care in Diabetes 2016, [place] [employer] Association. Diabetes Care. 2016.39(Suppl 1). Performed By: #### 1 9123-9, 3015-3, 76465-2 ####[facility] LABCLIA [id number] [place] [address] [place] Potassium [Moles/Vol] 3.8 mmol/L Normal 3.7-5.1 [facility] Comment on above: Order Comment: Speci men Type: BLOOD SPECIMENOrdering Facility: [facility] Address: [address] [place] [address] Performed By: #### 1 9123-9, 3, 73956-0 ####[facility] LABIA [id number] [place] [address] [place] Protein [Mass/Vol] 6.9 g/dL Normal 6.3-8.0 [facility] Comment on above: Order Comment: Speci men Type: BLOOD SPECIMENOrdering Facility: [facility] Address: [address] [place] [address] Performed By: #### 1 9123-9, 3, 16262-2 ####[facility] LABIA [id number] [place] [address] [place] Sodium [Moles/Vol] 140 mmol/L Normal 136-144 [facility] Comment on above: Order Comment: Speci men Type: BLOOD SPECIMENOrdering Facility: [facility] Address: [address] [place] [place] [id number] Performed By: #### 1 9123-9, 3016-3, 28397-2 ####[facility] [id number] [place] [address] [place] Urea nitrogen [Mass/Vol] 15 mg/dL Normal 7-21 [facility] Comment on above: Order Comment: Speci men Type: BLOOD SPECIMENOrdering Facility: [facility] Address: [address] [place] [address] Performed By: #### 1 9123-9, 3016-3, 17267-5 ####[facility] [id number] [place] [address] [place] ECG COMPLETEon 04-28-2024 ECG COMPLETE Ventricular Rate : 62 BPM Atrial Rate : 62 BPM P-R Interval : 154 ms QRS Duration : 82 ms Q-T Interval : 442 ms QTC Calculation(Bazett) : 448 ms Calculated P [place] : 47 degrees Calculated R [place] : 79 degrees Calculated T [place] : 51 degrees NORMAL SINUS RHYTHM NORMAL ECG Confirmed by JUAN LEWIS DO ([id number]) on 04/29/2024 5:16:36 PM NAME : AIDEN FRENCH PID : [id number] : 1990 Gender : Female Race : ORD : [id number] Procedure Date : Apr 28 2024 15:22:43 Edit Date : Apr 29 2024 17:16:43 Diagnosis: NORMAL SINUS RHYTHM NORMAL ECG Confirmed by JUAN LEWIS DO ([id number]) on 04/29/2024 5:16:36 PM Test Reason : R07.89 Sternal pain Location : 185 : WOF[facility] Overread By : JUAN LEWIS DO Edited By : JUAN LEWIS DO Referred By : , Acquired by : , Normal [facility] Magnesium SerPl-mCncon 04-28 Magnesium [Mass/Vol] 2.0 mg/dL Normal 1.7-2.3 [facility] Comment on above: Order Comment: Speci men Type: BLOOD SPECIMENOrdering Facility: [facility] Address: [address] [place] [address] Performed By: #### 1 9123-9, 3016-3, 72911-1 ####[facility] LABCLIA [id number] [place] [address] [place] TSH SerPl-aCncon 04-28-2024 TSH Qn 2.090 m[IU]/L Normal 0.270-4.200 [facility] Comment on above: Order Comment: Speci men Type: BLOOD SPECIMENOrdering Facility: [facility] Address: [address] [place] [address] Result Comment: If t he patient is , TSH reference range varies by gestational period: First Trimester (weeks 9-12): 0.180-2.990 mIU/L Second Trimester: 0.110-3.980 mIU/L Third Trimester: 0.480-4.710 mIU/L Ki Rosa et al. A Practical Approach for the Verifications and Determination of Site- and Trimester-Specific Reference Intervals for Thyroid Function tests in . Thyroid, 2019:29:3:412-420. Albert Bridges, et al. 2017 Guidelines of the [place] Thyroid Association for the Diagnosis and Management of Thyroid Disease during and the . Thyroid, 2017:27:3:315-389. Performed By: #### 1 9123-9, 3016-3, 18679-3 ####[facility] LABCLIA [id number] [address] [address] [place] 03-30-2024 MARYN Telephone (OBGYWM) ---- AIDEN FRENCH ([id number]) 1990 F Date Time Provider Department 03/30/24 ABELINO KESSLER OBBRADY During your visit today, we recorded the following information about you: Odalis Pino 03/30/2024 2:59 PM Signed Yue from [employer] received faxed information regarding pt. However, she indicates this needs an addendum signed by a physician. In addition to this she needs to know the reason the pt was allocated to be off 3 weeks before the due date. This can be adjusted on original forms scanned and faxed on 01/01/24. Yue phone number is [phone] for questions. Fax on the original fax cover [phone] is confirmed. Lin Ramirez LPN 03/30/2024 3:46 PM Signed Please see below message, please advise and I will then contact [employer] and update pt's record. JENNA Rollins Jessica, APRN.CNM 04/02/2024 8:00 AM Addendum Documentation completed on original packed for leave. If needed can add, GDMA1, back pain M54.9 and situational depression. FMLA to begin at patient requested date and medical leave for 37 weeks. Thanks, Shu Reeves APRN.Lin Stone LPN 04/02/2024 11:51 AM Signed Addendum to FMLA paperwork completed and faxed to pt's insurance. Lin Ramirez LPN Allergies As of Date: 03/30/2024 (No Known Allergies) Date Reviewed: 03/12/2024 Reviewed by: Abelino Kessler MD - Fully Assessed Reason for Visit: FMLA paperwork addition info [Other] Prescriptions as of 04/02/2024 - sertraline (ZOLOFT) 25 mg tablet Take 1 tablet by mouth once daily. - famotidine (PEPCID) 20 mg tablet Take 1 tablet by mouth two times a day. - no.167-folic acid-dha 400 mcg- 25 mg chew Take 1 tablet by mouth once daily. - multivit,calc,mins/ iron/folic (ONE-A-DAY WOMENS FORMULA ORAL) Take by mouth. Problem List As Of Date 03/30/2024 Noted Resolved Rhinitis [J31.0] 11/02/2014 Eustachian tube dysfunction [H69.90] 11/02/2014 Overweight (BMI 25.0-29.9) [E66.3] 11/22/2014 05/24/2021 Back ache [M54.9] 11/22/2014 Anxiety and depression [F41.9, F32.A] 05/24/2021 Situational depression [F43.21] 05/24/2021 Panic attacks [F41.0] 05/24/2021 Attention deficit [R41.840] 10/31/2021 Rubella non-immune status, antepartum [O09.899,* Supervision of other high risk pregnancies, fir*07/16/2023 Pap smear of cervix with ASCUS, cannot exclude *10/15/2023 Request for sterilization [Z30.2] 11/17/2023 Abnormal glucose in , antepartum [O99.*11/18/2023 Gestational diabetes mellitus, class A1 [O24.41*11/19/2023 Encounter Status:Closed by LIN RAMIREZ on 04/02/24 Normal [facility] UA DIP, URINE (POC)on 2023 BILIRUBIN UA (POCT) Negative Negative [facility] CLARITY UA (POCT) Slightly Cloudy Cl [facility] COLOR UA (POCT) Yellow [facility] GLUCOSE UA (POCT) Negative Negative mg/dL [facility] Hemoglobin Ql (U) Negative Negative [facility] KETONE UA (POCT) Negative Negative mg/dL [facility] LEUKOCYTES UA (POCT) Negative Negative [facility] NITRITE UA (POCT) Negative Negative [facility] PH UA (POCT) 6.0 4.5 - 8.0 [facility] Protein Ql (U) Negative Negative mg/dL [facility] SPECIFIC GRAVITY UA (POCT) 1.025 1.005 - 1.030 [facility] UROBILINOGEN UA (POCT) 0.2 Normal E.U./d L [facility] Location:[facility], [address], [place], [address] [facility] POINT OF CARE [facility] Bedside Glucoseon 02-05-2024 FINGERSTICK GLU 92 mg/dL Normal 74-106 [facility] Comment on above: Result Comment: SID VENTURA OF PATIENT CARE PER NURSING PROTOCOL Performed By: #### L 501.080 #### [facility] [address] [place], [address] Absolute lymphocyte countOrd ered By: Shu Reeves on 02-04-2024 Lymphocytes Auto (Unsp spec) [#/Vol] 4.67 10*3/uL 0.83-4.51 [facility] Automated lymphocyte count a s percentage of total leukocytesOrdered By: Shu Reeves on 02-04-2024 Lymphocytes/100 WBC Auto (Unsp spec) 22.4 % 19-41 [facility] Basophil percentageOrdered B y: Shu Reeves on 02-04-2024 Basophils/100 WBC (Bld) 0.7 % 0-1 [facility] Eosinophils/100 WBC (Bld) 1.9 % 0-5 [facility] Hemoglobin (Bld) [Mass/Vol] 11.7 g/dL 12.0-15.0 [facility] Monocytes/100 WBC (Bld) 6.6 % 0-[address] [facility] Neutrophils (Bld) [#/Vol] 14.0 10*3/uL 2.0-7.7 [facility] Neutrophils/100 WBC (Bld) 67.2 % 47-70 [facility] WBC (Bld) [#/Vol] 20.8 10*3/uL 4.4-11.0 [facility] Blood manual differential co mment interpretation (narrative result)Ordered By: Shu Reeves on 02-04-2024 Manual differential comment [place] (Bld) [Interp] SCANNED [facility] CBC W/Diff, Automatedon SMEAR COMMENT SCANNED Normal [facility] Comment on above: Performed By: #### L 100.0100, BTS #### [facility] [address] [place], [address] Determination of erythrocyte mean corpuscular volume (MCV)Ordered By: Shu Reeves on 02-04-2024 MCV (RBC) [Entitic vol] 90.5 fL 81-99 [facility] Erythrocyte distribution wid th ratioOrdered By: Shu Reeves on 02-04-2024 Erythrocyte distribution width (RBC) [Ratio] 14.1 % 11.6-14.6 [facility] Erythrocyte distribution wid th standard deviationOrdered By: Shu Reeves on 02-04-2024 Erythrocyte distribution width (RBC) [Entitic vol] 46.1 fL 35.1-43.9 [facility] Hematocrit Auto (Bld) [Volum e fraction]Ordered By: Shu eReves on 02-04-2024 Hematocrit (Bld) [Volume fraction] 35.1 % 37-47 [facility] Immature granulocytes/100 WB C Auto (Bld)Ordered By: Shu Reeves on 02-04-2024 Immature granulocytes/100 WBC (Bld) 1.200 % 0.0-0.9 [facility] Comment on above: IG% - Immature Granu locytes (promyelocytes, myelocytes and metamyelocytes) > 1% indicates that a LEFT SHIFT is Present. Laboratory - Hematology and Cell countsOrdered By: Shu Reeves on 02-04-2024 MCH (RBC) [Entitic mass] 30.2 pg 27.0-32.0 [facility] MCHC (RBC) [Mass/Vol] 33.3 g/dL 32-36 [facility] Nucleated RBC/100 WBC (Bld) [Ratio] 0 % 0-5 [facility] Platelet mean volume (Bld) [Entitic vol] 9.7 fL 6.2-12.0 [facility] Platelets (Bld) [#/Vol] 333 10*3/uL 150-450 [facility] RBC Auto (Bld) [#/Vol]Ordere d By: Shu Reeves on 02-04-2024 RBC (Bld) [#/Vol] 3.88 10*6/uL 4.2-5.4 [facility] Bedside Glucoseon 02-03-2024 FINGERSTICK GLU 105 mg/dL Normal 74-106 [facility] Comment on above: Result Comment: SID VENTURA OF PATIENT CARE PER NURSING PROTOCOL Performed By: #### L 100.0100, BTS #### [facility] [address] [place] [address]. [place], [address] FINGERSTICK GLU 99 mg/dL Normal 74-106 [facility] Comment on above: Result Comment: SID GEMENT OF PATIENT CARE PER NURSING PROTOCOL Performed By: #### L 100.0100, BTS #### [facility] [address] [place], [address] FINGERSTICK GLU 100 mg/dL Normal 74-106 [facility] Comment on above: Result Comment: SID GEMENT OF PATIENT CARE PER NURSING PROTOCOL Performed By: #### L 501.080 #### [facility] [address] [place], [address] FINGERSTICK GLU 123 mg/dL High 74-106 [facility] Comment on above: Result Comment: SID GEMENT OF PATIENT CARE PER NURSING PROTOCOL Performed By: #### L 501.080 #### [facility] [address] [place], [address] FINGERSTICK GLU 113 mg/dL High 74-106 [facility] Comment on above: Result Comment: SID GEMENT OF PATIENT CARE PER NURSING PROTOCOL Performed By: #### L 100.0100, BTS #### [facility] [address] [place], [address] CBC W/Diff, Automatedon 04-3 0-2023 Absolute Neut Normal 2.0-7.7 [facility] Comment on above: Order Comment: Comme nts: First day Result Comment: Canc elled via OM: Duplicate Order Performed By: #### L 100.0100 #### [facility] [address] [place], [address] HCT Normal 37-47 [facility] Comment on above: Order Comment: Comme nts: First day Result Comment: Canc elled via OM: Duplicate Order Performed By: #### L 100.0100 #### [facility] [address] [place], [address] HGB Normal 12.0-15.0 [facility] Comment on above: Order Comment: Comme nts: First day Result Comment: Canc elled via OM: Duplicate Order Performed By: #### L 100.0100 #### [facility] [address] [place], [address] MCH Normal 27.0-32.0 [facility] Comment on above: Order Comment: Comme nts: First day Result Comment: Canc elled via OM: Duplicate Order Performed By: #### L 100.0100 #### [facility] [address] [place], [address] MCHC Normal 32-36 [facility] Comment on above: Order Comment: Comme nts: First day Result Comment: Canc elled via OM: Duplicate Order Performed By: #### L 100.0100 #### [facility] [address] [place], [address] MCV Normal 81-99 [facility] Comment on above: Order Comment: Comme nts: First day Result Comment: Canc elled via OM: Duplicate Order Performed By: #### L 100.0100 #### [facility] [address] [place], [address] NEUT% Normal 47-70 [facility] Comment on above: Order Comment: Comme nts: First day Result Comment: Canc elled via OM: Duplicate Order Performed By: #### L 100.0100 #### [facility] [address] [place], [address] PLT Normal 150-450 [facility] Comment on above: Order Comment: Comme nts: First day Result Comment: Canc elled via OM: Duplicate Order Performed By: #### L 100.0100 #### [facility] [address] [place], [address] RBC Normal 4.2-5.4 [facility] Comment on above: Order Comment: Comme nts: First day Result Comment: Canc elled via OM: Duplicate Order Performed By: #### L 100.0100 #### [facility] [address] [place], [address] RDW CV Normal 11.6-14.6 [facility] Comment on above: Order Comment: Comme nts: First day Result Comment: Canc elled via OM: Duplicate Order Performed By: #### L 100.0100 #### [facility] [address] [place], [address] RDW SD Normal 35.1-43.9 [facility] Comment on above: Order Comment: Comme nts: First day Result Comment: Canc elled via OM: Duplicate Order Performed By: #### L 100.0100 #### [facility] [address] [place], [address] WBC Normal 4.4-11.0 [facility] Comment on above: Order Comment: Comme nts: First day Result Comment: Canc elled via OM: Duplicate Order Performed By: #### L 100.0100 #### [facility] [address] [place], [address] H AND P Exam - OB/GYNon -3 -2023 H&P Exam - STRIP POLISHER [facility] Medical Records Department [address] [place] [address] H P Exam - STRIP POLISHER 02/03/24 0301 MR#: [id number] Acct: [id number] Name: AIDEN FRENCH Rep #: [id number] : 1990 33 From: Shu Reeves CNM PCP: Dr. Kishor Hernandez MD Status:ADM IN Location: [id number] HPI - General General Date of Admission: 02/02/24 HPI Narrative AIDEN FRENCH, is a 33 F who presents CHAYITO: PFSH PFSH Medical History (Updated 02/03/24 @ 03:05 by Shu Reeves CNM) Anxiety Depression Gestational diabetes Infertility Ovarian cyst depression hemorrhage Home Medications docosahexaenoic acid 200 mg capsule ( DHA) mg PO DAILY 08/07/23 [History Last Taken Unknown] ondansetron HCl 4 mg tablet 4 mg nausea 08/07/23 [History Last Taken Unknown] sertraline 25 mg tablet 25 mg PO DAILY anxiety depr 08/07/23 [History Last Taken 02/01/24] Allergy/AdvReac Type Severity Reaction Status Date / Time No Known Allergies Allergy Verified 02/02/24 21:50 Social History Smoking Status: Former smoker substance use type: does not use History Elective abortions Hx Para 2 Spontaneous abortions Hx # Term Pregnancies Ectopic pregnancies Hx # Pregnancies Multiple births # of living children ROS Constitutional Constitutional: Reports systems reviewed and no addt'l complaints, except as documented; Denies headache(s) Eyes Eyes: Denies acute decrease in peripheral vision, blurry vision or change in vision ENT HEENT: Reports systems reviewed and no addt'l complaints, except as documented Cardiovascular Cardiovascular: Denies chest pain or dizziness Respiratory/Chest Respiratory/Chest: Denies cough, dyspnea, dyspnea on exertion, shortness of breath at rest or shortness of breath with exertion Gastrointestinal Gastrointestinal: Denies abdominal pain, diarrhea, nausea or vomiting Genitourinary Genitourinary: Denies abdominal discomfort Musculoskeletal Musculoskeletal: Denies limited range of motion Integumentary Integumentary: Reports systems reviewed and no addt'l complaints, except as documented Neurologic Neurologic: Reports systems reviewed and no addt'l complaints, except as documented Psychiatric Psychiatric: Reports systems reviewed and no addt'l complaints, except as documented Endocrine Endocrinology: Reports systems reviewed and no addt'l complaints, except as documented Hematologic/Lymphat ic Hematologic/Lymphat ic: Reports systems reviewed and no addt'l complaints, except as documented Allergic/Immunologi c Allergic/Immunologi c: Reports systems reviewed and no addt'l complaints, except as documented Vital Signs Vital Signs Vital Signs: 02/02/24 21:56 02/02/24 21:56 02/02/24 21:56 Temperature Temperature Source Temporal Pulse Rate 90 Respiratory Rate Blood Pressure 114/67 BP Systolic 114 BP Diastolic 67 Pulse Ox 02/02/24 21:56 02/02/24 21:56 02/02/24 21:56 Temperature 99.4 F H Temperature Source Pulse Rate Respiratory Rate 16 Blood Pressure BP Systolic BP Diastolic Pulse Ox 99 02/02/24 23:14 02/02/24 23:14 02/02/24 23:14 Temperature Temperature Source Pulse Rate 90 109 H Respiratory Rate Blood Pressure 126/80 H BP Systolic 126 BP Diastolic 80 Pulse Ox 02/02/24 23:14 02/02/24 23:14 02/02/24 23:14 Temperature Temperature Source Temporal Pulse Rate 103 H Respiratory Rate Blood Pressure BP Systolic BP Diastolic Pulse Ox 97 02/02/24 23:14 02/02/24 23:14 02/02/24 23:14 Temperature 98.5 F Temperature Source Pulse Rate Respiratory Rate 18 Blood Pressure BP Systolic BP Diastolic Pulse Ox 97 02/02/24 23:58 02/02/24 23:58 02/02/24 23:58 Temperature Temperature Source Temporal Pulse Rate 104 H Respiratory Rate Blood Pressure 117/68 BP Systolic 117 BP Diastolic 68 Pulse Ox 02/02/24 23:58 02/02/24 23:58 02/02/24 23:58 Temperature 98.0 F Temperature Source Pulse Rate Respiratory Rate 18 Blood Pressure BP Systolic BP Diastolic Pulse Ox 97 02/03/24 00:15 02/03/24 00:15 02/03/24 00:20 Temperature Temperature Source Pulse Rate 110 H 83 Respiratory Rate Blood Pressure BP Systolic BP Diastolic Pulse Ox 97 02/03/24 00:20 02/03/24 00:25 02/03/24 00:25 Temperature Temperature Source Pulse Rate 92 Respiratory Rate Blood Pressure BP Systolic BP Diastolic Pulse Ox 98 98 02/03/24 00:30 02/03/24 00:30 02/03/24 01:14 Temperature Temperature Source Pulse (more content not included)... Normal [facility] Operative Reporton 4 Operative Report [facility] Medical Records Department [address] [place] [address] Operative Report 02/03/24 0449 MR#: [id number] Acct: [id number] Name: AIDEN FRENCH Rep #: [id number] : 1990 33 From: Shu Reeves CNM PCP: Dr. Kishor Hernandez MD Status:ADM IN Location: [id number] Assessment Plan (1) Vaginal delivery: Maternal Data Information CHAYITO Calculator Estimated Delivery Date Method Current WG Current Estimate 02/11/24 Manual 38w 6d Vaginal Delivery Maternal Presentation Maternal Presentation: Active Labor and Spontaneous Rupture of Membranes Operative Information Date of Procedure: 02/03/24 Pre-Operative Diagnosis: SROM, Active labor at term Post-Operative Diagnosis: Surgery / Procedure Performed: Spontaneous Vaginal Delivery Type of Anesthesia: Epidural Estimated Blood Loss: 250ml Time of Delivery: 04: Findings Description of Procedure: Progressed to complete with urge to push. Epidural for pain management. of viable male over intact perineum. APGARS 8,9 respectively. head delivered with body immediately forthcoming. Placed on maternal abdomen, strong cry. Mouth and nares suctioned for secretions. Pitocin started for active 3rd stage management. Cord doubly clamped and cut by FOB after pulsations ceased, delayed cord clamping. Placenta delivered intact via hoffmann, 3 vessel cord intact. Perineum inspected and revealed intact. Fundus firm and hemostasis achieved. EBL 200ml. Mom and baby stable, planning to breastfeed. Family bonding well. notified of delivery. Presentation: Vertex and EDUARDO Amniotic Membrane Rupture Type: Spontaneous Amniotic Fluid Description: Clear Placental Delivery Description: Spontaneous Placenta Disposition: [facility] Cord Vessel Description: 3 Vessels Cord Entanglement: None A Gender: Male (1 minute): 8 (5 minute): 9 Delayed Cord Clamping: Yes Post Vaginal Delivery Medications Given After Delivery: IV Pitocin and IM Pitocin Episiotomy Description: None Laceration: None Complication Complications: None 02/03/24 2165 Cosigner Signature (if applicable): CC: MARINO Reeves; Dr. Kishor Hernandez MD Signed [facility] Thin prep Papanicolaou smear with manual screeningOrdered By: Shu Reeves on 02-03-2024 Thin prep Papanicolaou smear with manual screening 105 mg/dL 74-106 [facility] Comment on above: MANAGEMENT OF PATIEN T CARE PER NURSING PROTOCOL Type AND Screenon 02-03-2024 ABO and Rh group Nom (Bld) Blood group A Rh(D) positive [facility] Comment on above: Order Comment: Labor Performed By: #### L 100.0100, BTS #### [facility] [address] [place], [address] (ROM) Rupture Of Membraneson 02-02-2024 ROM Positive Abnormal Negative [facility] Comment on above: Result Comment: Amni otic fluid present indicates rupture of Membranes. RESULTS CALLED TO 02/02/24 Eusebia6 Chanell Cazares. REPORT READ BACK BY SAME . Performed By: #### L 205.1000 #### [facility] [address] [place], [address] CBC W/Diff, Automatedon 01-05 Absolute Lymph 3.03 X10 3/uL Normal 0.83-4.51 [facility] Comment on above: Performed By: #### L 100.0100, BTS #### [facility] [address] [place], [address] Absolute Neut 10.7 X10 3/uL High 2.0-7.7 [facility] Comment on above: Performed By: #### L 100.0100, BTS #### [facility] [address] [place], [address] Basophils/100 WBC (Bld) 0.6 % Normal 0-1 [facility] Comment on above: Performed By: #### L 100.0100, BTS #### [facility] [address] [place], [address] Eosinophils/100 WBC (Bld) 2.4 % Normal 0-5 [facility] Comment on above: Performed By: #### L 100.0100, BTS #### [facility] [address] [place], [address] Erythrocyte distribution width (RBC) [Ratio] 13.7 % Normal 11.6-14.6 [facility] Comment on above: Performed By: #### L 100.0100, BTS #### [facility] [address] [place], [address] Hematocrit (Bld) [Volume fraction] 35.5 % Low 37-47 [facility] Comment on above: Performed By: #### L 100.0100, BTS #### [facility] [address] [place], [address] Hemoglobin (Bld) [Mass/Vol] 12.0 g/dL Normal 12.0-15.0 [facility] Comment on above: Performed By: #### L 100.0100, BTS #### [facility] [address] [place], [address] IG% 1.700 High 0.0-0.9 [facility] Comment on above: Result Comment: IG% - Immature Granulocytes (promyelocytes, myelocytes and metamyelocytes) > 1% indicates that a LEFT SHIFT is Present. Performed By: #### L 100.0100, BTS #### [facility] [address] [place], [address] Lymphocytes/100 WBC (Bld) 19.3 % Normal 19-41 [facility] Comment on above: Performed By: #### L 100.0100, BTS #### [facility] [address] [place], [address] MCH (RBC) [Entitic mass] 29.7 pg Normal 27.0-32.0 [facility] Comment on above: Performed By: #### L 100.0100, BTS #### [facility] [address] [place], [address] MCHC (RBC) [Mass/Vol] 33.8 g/dL Normal 32-36 [facility] Comment on above: Performed By: #### L 100.0100, BTS #### [facility] [address] [place], [address] MCV (RBC) [Entitic vol] 87.9 fL Normal 81-99 [facility] Comment on above: Performed By: #### L 100.0100, BTS #### [facility] [address] [place], [address] Monocytes/100 WBC (Bld) 8.0 % Normal 0-10 [facility] Comment on above: Performed By: #### L 100.0100, BTS #### [facility] [address] [place], [address] Neutrophils/100 WBC (Bld) 68.0 % Normal 47-70 [facility] Comment on above: Performed By: #### L 100.0100, BTS #### [facility] [address] [place], [address] Nucleated RBC (Bld) [#/Vol] 0 10*3/uL Normal 0-5 [facility] Comment on above: Performed By: #### L 100.0100, BTS #### [facility] [address] [place], [address] Platelet mean volume (Bld) [Entitic vol] 10.1 fL Normal 6.2-12.0 [facility] Comment on above: Performed By: #### L 100.0100, BTS #### [facility] [address] [place], [address] Platelets (Bld) [#/Vol] 375 10*3/uL Normal 150-450 [facility] Comment on above: Performed By: #### L 100.0100, BTS #### [facility] [address] [place], [address] RBC (Bld) [#/Vol] 4.04 10*6/uL Low 4.2-5.4 [facility] Comment on above: Performed By: #### L 100.0100, BTS #### [facility] [address] [place], [address] RDW SD 43.9 fl Normal 35.1-43.9 [facility] Comment on above: Performed By: #### L 100.0100, BTS #### [facility] [address] [place], [address] WBC (Bld) [#/Vol] 15.7 10*3/uL High 4.4-11.0 [facility] Comment on above: Performed By: #### L 100.0100, BTS #### [facility] [address] [place], [address] L509.8000on 02-02-2024 Syphilis Abs Non-Reactive Normal [facility] Comment on above: Performed By: #### L 100.0100, BTS #### [facility] [address] [place], [address] No Panel InformationOrdered By: Shu Reeves on 02-02-2024 Vaginal Amniotic Fluid Detection Positive Negative [facility] Comment on above: Amniotic fluid prese nt indicates rupture of Membranes. RESULTS CALLED TO 02/02/24 2226 Chanell Cazares.REPORT READ BACK BY SAME . Serum Treponema species anti body detectionOrdered By: Shu Reeves on 02-02-2024 Treponema sp Ab Ql (S) Non-Reactive [facility] Examination level ultrasound on 01-30-2024 [facility] Radiology Study observation (narrative) [facility] URINE OB DIP B/Oon 4 Glucose Ql (U) Negative Neg mg/dL [facility] Protein.monoclonal (U) [Mass/Vol] Negative Neg mg/dL [facility] URINE OB DIP B/Oon 4 Glucose Ql (U) Negative Neg mg/dL [facility] Protein.monoclonal (U) [Mass/Vol] Negative Neg mg/dL [facility] URINE OB DIP B/Oon 4 Glucose Ql (U) Negative Neg mg/dL [facility] Protein.monoclonal (U) [Mass/Vol] Negative Neg mg/dL [facility] No Panel InformationOrdered By: Rony Burgess on 12-14-2023 Troponin I High Sensitivity 5 pg/mL 3.0-54.0 [facility] Comment on above: Please Note: New Karen t Units and Gender Specific Reference Ranges. For more information see Policy Stat Procedure [place] High Sensitivity Troponin (TNIH) and attachments. Absolute lymphocyte countOrd ered By: Rony Burgess on 12-13-2023 Lymphocytes Auto (Unsp spec) [#/Vol] 3.72 10*3/uL 0.83-4.51 [facility] Automated lymphocyte count a s percentage of total leukocytesOrdered By: Rony uBrgess on 12-13-2023 Lymphocytes/100 WBC Auto (Unsp spec) 18.8 % 19-41 [facility] Basophil percentageOrdered B y: Rony Burgess on 12-13-2023 Basophils/100 WBC (Bld) 0.6 % 0-1 [facility] Chloride [Moles/Vol] 110 mmol/L 98-107 [facility] Eosinophils/100 WBC (Bld) 2.3 % 0-5 [facility] Glucose [Mass/Vol] 138 mg/dL 74-106 [facility] Comment on above: Fasting Glucose resu lt greater than or equal to 126 mg/dL suggests DIABETES MELLITUS per A.D.A. criteria. Hemoglobin (Bld) [Mass/Vol] 11.2 g/dL 12.0-15.0 [facility] Monocytes/100 WBC (Bld) 7.8 % 0-10 [facility] Neutrophils (Bld) [#/Vol] 13.5 10*3/uL 2.0-7.7 [facility] Neutrophils/100 WBC (Bld) 68.4 % 47-70 [facility] Potassium [Moles/Vol] 3.4 mmol/L 3.5-5.1 [facility] Sodium [Moles/Vol] 139 mmol/L 136-145 [facility] WBC (Bld) [#/Vol] 19.8 10*3/uL 4.4-11.0 [facility] Blood manual differential co mment interpretation (narrative result)Ordered By: Rony Burgess on 12-13-2023 Manual differential comment Hakan (Bld) [Interp] SEE COMMENT [facility] Comment on above: MONOCYTOSIS NOTED Blood platelet adequacy dete ction by light microscopyOrdered By: Rony Burgess on 12-13-2023 Platelets LM Ql (Bld) ADEQUATE ADEQ [facility] Determination of erythrocyte mean corpuscular volume (MCV)Ordered By: Rony Burgess on 12-13-2023 MCV (RBC) [Entitic vol] 90.3 fL 81-99 [facility] Erythrocyte distribution wid th ratioOrdered By: Rony Burgess on 12-13-2023 Erythrocyte distribution width (RBC) [Ratio] 13.2 % 11.6-14.6 [facility] Erythrocyte distribution wid th standard deviationOrdered By: Rony Burgess on 12-13-2023 Erythrocyte distribution width (RBC) [Entitic vol] 43.5 fL 35.1-43.9 [facility] Hematocrit Auto (Bld) [Volum e fraction]Ordered By: Rony Burgess on 12-13-2023 Hematocrit (Bld) [Volume fraction] 34.3 % 37-47 [facility] Immature granulocytes/100 WB C Auto (Bld)Ordered By: Rony Burgess on 12-13-2023 Immature granulocytes/100 WBC (Bld) 2.100 % 0.0-0.9 [facility] Comment on above: IG% - Immature Granu locytes (promyelocytes, myelocytes and metamyelocytes) > 1% indicates that a LEFT SHIFT is Present. Laboratory - Chemistry and C hemistry - challengeOrdered By: Rony Burgess on 12-13-2023 CO2 [Moles/Vol] 23.0 mmol/L 21.0-32.0 [facility] Urea nitrogen/Creatinine [Mass ratio] 19.5 mg/mg 10-20 [facility] - Hematology and Cell countsOrdered By: Rony Burgess on 12-13-2023 Anisocytosis Ql (Bld) RARE [facility] MCH (RBC) [Entitic mass] 29.5 pg 27.0-32.0 [facility] MCHC (RBC) [Mass/Vol] 32.7 g/dL 32-36 [facility] Nucleated RBC/100 WBC (Bld) [Ratio] 0 % 0-5 [facility] Platelet mean volume (Bld) [Entitic vol] 9.8 fL 6.2-12.0 [facility] Platelets (Bld) [#/Vol] 311 10*3/uL 150-450 [facility] Macrocytes detectionOrdered By: Rony Burgess on 12-13-2023 Macrocytes Ql (Bld) RARE [facility] No Panel InformationOrdered By: Rony Burgess on 12-13-2023 Estimated Creatinine Clearance Calc 165.14 ml/min [facility] Estimated GFR (MDRD) Amer 203 mL/min >60 [facility] Comment on above: GFR Calc Estimated GFR (MDRD) Non-Af Amer 167 mL/min >60 [facility] Comment on above: Non- GFR Calc RBC Auto (Bld) [#/Vol]Ordere d By: Rony Burgess on 12-13-2023 RBC (Bld) [#/Vol] 3.80 10*6/uL 4.2-5.4 [facility] RBC morphologyOrdered By: Ary Burgess on 12-13-2023 RBC morphology finding Nom (Bld) N CHROM NORMAL NORM C&C [facility] Review by pathologistOrdered By: Rony Burgess on 12-13-2023 Pathologist review Hakan (Unsp spec) [Interp] Sherin worley [facility] Pathologist review Hakan (Unsp spec) [Interp] Reviewed [facility] Comment on above: Previous reported re sult: Sherin worley Edited by: RGOOD on 12/16/23:0759Leukocytosis.Clinical correlation necessary.Harrison Chavis M.D. 12/16/23 AMENDED REPORT 12/16/23 0759 PATH REV previously reported as: Sherin worley Serum or plasma calcium talya urement (mass/volume)Ordered By: Rony Burgess on 12-13-2023 Calcium [Mass/Vol] 9.0 mg/dL 8.5-10.1 [facility] Serum or plasma creatinine m easurement (mass/volume)Ordered By: Rony Burgess on 12-13-2023 Creatinine [Mass/Vol] 0.46 mg/dL 0.55-1.02 [facility] Comment on above: The validity of the calculated GFR & GFRAA in patients over 70 years has not been determined. Clinical correlation is essential. Serum or plasma urea nitroge n measurement (mass/volume)Ordered By: Rony Burgess on 12-13-2023 Urea nitrogen [Mass/Vol] 9 mg/dL 7-18 [facility] Thin prep Papanicolaou smear with manual screeningOrdered By: Rony Burgess on 12-13-2023 Thin prep Papanicolaou smear with manual screening 6 5-15 [facility] Examination level ultrasound on 12-10-2023 [facility] URINE OB DIP B/Oon 4 Glucose Ql (U) Negative Neg mg/dL [facility] Protein.monoclonal (U) [Mass/Vol] trace Neg mg/dL [facility] URINE OB DIP B/Oon 4 Glucose Ql (U) Negative Neg mg/dL [facility] Protein.monoclonal (U) [Mass/Vol] Negative Neg mg/dL [facility] ALPHA FETOPRO MATERNALon AFP, MATERNAL 1.71 MoM [facility] Date of Collection #1 09/03/23 [facility] Date Received 09/04/23 [facility] CHAYITO 02/11/24 [facility] Gestation at Date of Sample 17 weeks 0 days (by dates) [facility] Insulin dependent diabetes None [facility] IVF No [facility] LMP 05/07/23 [facility] Maternal AFP Comment See comments below [facility] Maternal Age at CHAYITO 33 years [facility] Patient's Weight 160 lb. [facility] Interpretation Negative Screen Negat krish [facility] Previous NTD None [facility] Risk of NTD ;1:1900 [facility] Sample #1 [id number] [facility] Staff Review Reviewed by Bartolo Wahl MD, Ph.D ([id number]) [facility] URINE OB DIP B/Oon 3 Glucose Ql (U) Negative Neg mg/dL [facility] Protein.monoclonal (U) [Mass/Vol] Negative Neg mg/dL [facility] Basophil percentageOrdered B y: Trent Frausto on 08-07-2023 Basophil percentage 0 SEEN /hpf 0-5 [facility] Bilirubin Test strip Ql (U)O rdered By: Trent Frausto on 08-07-2023 Bilirubin Ql (U) Negative Negative [facility] Influenza virus A and B and SARS-CoV-2 (COVID-19) Ag panel - Upper respiratory specimOrdered By: Trent Frausto on 08-07-2023 SARS-CoV-2 (COVID-19) RNA FARRAH+probe Ql (Resp) [facility] Ketones Test strip Ql (U)Ord ered By: Trent Frausto on 08-07-2023 Ketones Ql (U) Negative Negative [facility] Mucus LM Ql (Urine sed)Order ed By: Trent Frausto on 08-07-2023 Mucus Ql (Urine sed) 0 SEEN /hpf [facility] Nitrite Test strip Ql (U)Ord ered By: Trent Frausto on 08-07-2023 Nitrite Ql (U) Negative Negative [facility] Protein Test strip Ql (U)Ord ered By: Trent Frausto on 08-07-2023 Protein Ql (U) Negative Negative [facility] Squamous epithelial cells de tection in urine sediment by light microscopyOrdered By: Trent Frausto on 08-07-2023 Epithelial cells.squamous LM Ql (Urine sed) 0 SEEN /hpf 5-10 [facility] Urine blood detectionOrdered By: Trent Frausto on 08-07-2023 RBC Ql (U) Negative Negative [facility] RBC Ql (U) 0 SEEN /hpf 0-5 [facility] Urine clarityOrdered By: Luis Frausto on 08-07-2023 Clarity (U) Clear Clear [facility] Urine color determinationOrd ered By: Trent Frausto on 08-07-2023 Color (U) Yellow Yellow [facility] Urine glucose detectionOrder ed By: Trent Frausto on 08-07-2023 Glucose Ql (U) Normal mg/dl Normal [facility] Urine leukocyte esterase det ection by dipstickOrdered By: Trent Frausto on 08-07-2023 Leukocyte esterase Test strip Ql (U) Negative Negative [facility] Urine pHOrdered By: Trent durand on 08-07-2023 pH (U) 7.0 [pH] 5.0 - 8.0 [facility] Urine sediment bacteria coun t by microscopy (number/high power field)Ordered By: Trent Frausto on 08-07-2023 Bacteria LM.HPF (Urine sed) [#/Area] 0 /[HPF] None Seen [facility] Urine specific gravity measu rementOrdered By: Trent Frausto on 08-07-2023 Specific gravity (U) [Rel density] 1.010 1.002-1.030 [facility] Urobilinogen Auto test strip Ql (U)Ordered By: Trent Pulliamehne on 08-07-2023 Urobilinogen Ql (U) Normal mg/dl Normal [facility] URINE OB DIP B/Oon Glucose Ql (U) Negative Neg mg/dL [facility] Protein.monoclonal (U) [Mass/Vol] Negative Neg mg/dL [facility] PAP TESTon 07-18-2023 Case Report Gynecologic Cytology Report Case: [id number] Authorizing Provider: Shu Reeves APRN.CNM Collected: 07/11/2023 04:22 PM Ordering Location: OB/Gynecology Received: 07/11/2023 04:45 PM First Screen: Michael Berkowitz, CT, ASCP Pathologist: Amirah Reno MD Specimen: Pap Test, ThinPrep, Cervix [facility] Clinical History (Indicate Weeks) [facility] Diagnosis Comment Suggest colposcopy/biopsy as clinically indicated. Results from the ASCUS/LSIL triage study found that interpretations of ASC-H were associated with a higher risk of underlying HSIL (SOHAN 2 or worse; 30-40%). [facility] General Categorization Epithelial Cell Abnormality [facility] HPV Reflex Yes HPV [facility] Interpretation Atypical squamous cells cannot exclude high grade squamous intraepithelial lesion (ASC-H); see comment. Abnormal [facility] LMP [facility]07[facility] Disclaimer The Pap Smear is a screening test for cervical cancer. False negative results occur with all screening tests, emphasizing the need for rescreening at recommended intervals, and clinical correlation. [facility] PAP Cooker Chip Comment This specimen has been analyzed by the ThinPrep Imaging System, an automated imaging and review system, which assists the laboratory in evaluating cells on ThinPrep Pap tests. Following automated imaging, selected salas from every slide are reviewed by a stone mason. [facility] Performing Lab Technical component, stone mason screening performed at [facility], [address] [place] [address] CLIA# [id number] Diagnostic interpretation performed at [facility], [address] [place] [address] CLIA# [id number] Senior Sustainability Advisor: Amirah Reno M.D. [facility] Specimen Adequacy Satisfactory for interpretation [facility] CBC panel Auto (Bld)on 07-15 Erythrocyte distribution width (RBC) [Ratio] 13.1 % 11.5 - 15.0 % [facility] Hematocrit (Bld) [Volume fraction] 37.3 % 36.0 - 46.0 % [facility] Hemoglobin (Bld) [Mass/Vol] 12.8 g/dL 11.5 - 15.5 g/dL [facility] MCH (RBC) [Entitic mass] 30.8 pg 26.0 - 34.0 pg [facility] MCHC (RBC) [Mass/Vol] 34.3 g/dL 30.5 - 36.0 g/dL [facility] MCV (RBC) [Entitic vol] 89.7 fL 80.0 - 100.0 fL [facility] Nucleated RBC (Bld) [#/Vol] <0.01 k/uL [facility] Platelet mean volume (Bld) [Entitic vol] 10.3 fL 9.0 - 12.7 fL [facility] Platelets (Bld) [#/Vol] 286 10*3/uL 150 - 400 k /uL [facility] RBC (Bld) [#/Vol] 4.16 10*6/uL 3.90 - 5.2 0 m/uL [facility] WBC (Bld) [#/Vol] 13.28 10*3/uL High 3.70 - 11 .00 k/uL [facility] HEP B SURF AG SCRNon 023 HBV surface Ag Ql (S) Negative Negative [facility] HEPATITIS C ANTIBODY IA WITH CONFIRMATIONon 07-15-2023 HCV Ab Ql (S) Negative Negative [facility] HIV 1+2 Ab IA Qlon 3 HIV 1 and 2 Ab IA.rapid Nom [facility] HIV 1+2 Ab+HIV1 p24 Ag IA Ql Non-Reactive Nonreactive [facility] HIV immunoassay testing algorithm interpretation (S/P/Bld) [Interp] [facility] HPV W/GENOTYPE THIN PREPon 1 HPV 16 Ag Ql (Unsp spec) Negative Negative for HPV DNA high risk type 16 by PCR [facility] HPV 18 Ag Ql (Unsp spec) Negative Negative for HPV DNA high risk type 18 by PCR [facility] HPV 31+33+35+39+45+51+52+56 +58+59+66+68 DNA FARRAH+probe Ql (Cvx) Negative for HPV DNA high risk types: 31,33,35,39,45,51,5 2,56,58,59,66,68 by PCR. Negative for HPV DNA high risk types: 31,33,35,39,45, 51,52,56,58,59, 66,68 by PCR. [facility] HbA1c (Bld)on 07-15-2023 Average glucose Estimated from glycated hemoglobin (Bld) [Mass/Vol] 97 mg/dL [facility] HbA1c (Bld) [Mass fraction] 5.0 % 4.3 - 5.6 % [facility] RUBELLA IGG ABon 07-15-2023 Rubella IgG, Qual Negative Abnormal Positive [facility] Reagin and Treponema pallidu m IgG and IgM [Interp]on 07-15-2023 T. pallidum IgG+IgM IA Ql (S) Non-Reactive Nonreactive [facility] SYPHILIS TOTAL W/REFLEXon Reagin and Treponema pallidum IgG and IgM [Interp] Cannot exclude recent Treponemal infection if specimen collected within 7-10 days after appearance of suspect lesions or 2-3 weeks after an exposure. Clinical correlation is required. [facility] TYPE + SCREEN PRENATALon ABO group Nom (Bld) A [facility] Blood group antibody screen Ql Negative [facility] HIstorical Ab Scr Status Negative [facility] Rh Nom (Bld) Positive [facility] Type and Screen Expiration 07/17/2023 23:59 [facility] URINE CULTUREon 07-13-2023 Bacteria identified Cx Nom (U) 10,000 -<50,000 CFU/ml Mixed microbiota Abnormal [facility] BACTERIAL VAGINOSIS NAATon 1 Lactobacillus crispatus+gasseri+jense kamari + Gardnerella vaginalis + Atopobium vaginae rRNA FARRAH+probe Ql (Vag fld) Negative Negative for bacterial vaginosis [facility] C. trachomatis+N. gonorrhoea e DNA FARRAH+probe Ql (Unsp spec)on 07-12-2023 C. trachomatis rRNA FARRAH+probe Ql (Unsp spec) Negative Negative for Chlamydia trachomatis by amplificaton [facility] N. gonorrhoeae rRNA FARRAH+probe Ql (Unsp spec) Negative Negative for Neisseria gonorrhoeae by amplification [facility] BOGDAN/TRICHOMONAS NAATon 1 C. glabrata RNA FARRAH+probe Ql (Vag fld) Negative Negative for Bogdan glabrata [facility] Bogdan sp DNA FARRAH+probe Ql (Vag fld) Negative Negative for Bogdan species [facility] T. vaginalis DNA FARRAH+probe Ql (Unsp spec) Negative Negative for Trichomonas vaginalis by amplification [facility] No Panel Informationon 07-11 [facility] HCG QUAL UR B/Oon 06-06-2023 status Positive neg - pos [facility] Quality Check Yes [facility] US BREAST LTD LEFTon 023 [facility] UA DIP, URINE (POC)on 2022 BILIRUBIN UA (POCT) Negative Negative [facility] CLARITY UA (POCT) Clear [facility] COLOR UA (POCT) Yellow [facility] GLUCOSE UA (POCT) Negative Negative mg/dL [facility] Hemoglobin Ql (U) Negative Negative [facility] KETONE UA (POCT) Negative Negative mg/dL [facility] LEUKOCYTES UA (POCT) Negative Negative [facility] NITRITE UA (POCT) Negative Negative [facility] PH UA (POCT) 7.0 4.5 - 8.0 [facility] Protein Ql (U) Negative Negative mg/dL [facility] SPECIFIC GRAVITY UA (POCT) 1.010 1.005 - 1.030 [facility] UROBILINOGEN UA (POCT) 0.2 E.U./dL Normal E.U./ dL [facility] CBC W Auto Differential pane l (Bld)on 05-13-2023 Basophils (Bld) [#/Vol] 0.11 10*3/uL High <0.11 k/uL [facility] Basophils/100 WBC (Bld) 1.0 % C [facility] Differential cell count method Nom (Bld) Auto [facility] Eosinophils (Bld) [#/Vol] 0.25 10*3/uL <0.46 k/uL [facility] Eosinophils/100 WBC (Bld) 2.3 % [facility] Erythrocyte distribution width (RBC) [Ratio] 12.1 % 11.5 - 15.0 % [facility] Hematocrit (Bld) [Volume fraction] 40.4 % 36.0 - 46.0 % [facility] Hemoglobin (Bld) [Mass/Vol] 13.3 g/dL 11.5 - 15.5 g/dL [facility] Immature granulocytes (Bld) [#/Vol] 0.04 10*3/uL <0.10 k/uL [facility] Immature granulocytes/100 WBC (Bld) 0.4 % [facility] Lymphocytes (Bld) [#/Vol] 3.03 10*3/uL 1.00 - 4.00 k/uL [facility] Lymphocytes/100 WBC (Bld) 27.8 % [facility] MCH (RBC) [Entitic mass] 29.8 pg 26.0 - 34.0 pg [facility] MCHC (RBC) [Mass/Vol] 32.9 g/dL 30.5 - 36.0 g/dL [facility] MCV (RBC) [Entitic vol] 90.6 fL 80.0 - 100.0 fL [facility] Monocytes (Bld) [#/Vol] 0.72 10*3/uL <0.87 k/uL [facility] Monocytes/100 WBC (Bld) 6.6 % C [facility] Neutrophils (Bld) [#/Vol] 6.74 10*3/uL 1.45 - 7.50 k/uL [facility] Neutrophils/100 WBC (Bld) 61.9 % [facility] Nucleated RBC (Bld) [#/Vol] <0.01 k/uL [facility] Nucleated RBC/100 WBC (Bld) [Ratio] 0.0 /100 WBC [facility] Platelet mean volume (Bld) [Entitic vol] 10.0 fL 9.0 - 12.7 fL [facility] Platelets (Bld) [#/Vol] 366 10*3/uL 150 - 400 k /uL [facility] RBC (Bld) [#/Vol] 4.46 10*6/uL 3.90 - 5.2 0 m/uL [facility] WBC (Bld) [#/Vol] 10.89 10*3/uL 3.70 - 11 .00 k/uL [facility] Laboratory - Chemistry and C hemistry - challengeOrdered By: Hai Chavira on 01-22-2023 Lipase [Catalytic activity/Vol] 21 U/L 13-75 [facility] Comment on above: Please note:LIPASE r evised reference range effective 23. New Lipase methodology. Expected to produce lower values than the previous assay method. NEW Reference Range: 13 - 75 U/L US ABD RIGHT UPPER QUADRANTo n 01-22-2023 US ABD RIGHT UPPER QUADRANT * * *Final Report* * * DATE OF EXAM: Jan 22 2023 4:40PM LDU 1032 - US ABD RIGHT UPPER QUADRANT / PROCEDURE REASON: RUQ pain * * * * Physician Interpretation * * * * EXAMINATION: RIGHT UPPER QUADRANT ULTRASOUND AND ULTRASOUND SPLEEN, 01/22/2023 CLINICAL HISTORY: Right upper quadrant abdominal pain. Nausea. TECHNIQUE: Sonography of the right upper quadrant was performed. Images were obtained and stored in a permanent archive. MQ: URUQ_2 COMPARISON: 04/09/2016 RESULT: Pancreas: Normal sonographic appearance. Portions obscured: tail Liver: Normal size. Echotexture: Normal, homogeneous. Echogenicity: Normal Surface contour: Smooth Lesions: None. Biliary: No intrahepatic biliary duct dilation. CBD: 0.4 cm at the hilum. Gallbladder: Normal appearance. No gallstones. Right Kidney: Normal size and appearance, 10.9 cm length. No hydronephrosis. Spleen: Normal size and appearance, 10.4 cm length. Ascites: None. IMPRESSION: Normal sonographic appearance of the right upper quadrant. Normal sonographic appearance of the spleen. Rubbing Bed Operator: PSCB Transcribe Date/Time: Jan 22 2023 5:00P Dictated by : DARA NICHOLS MD This examination was interpreted and the report reviewed and electronically signed by: DARA NICHOLS MD on Jan 22 2023 5:03PM EST [id number] ACN Normal [facility] US ABD SPLEEN -NBon 01-23-20 US ABD SPLEEN -NB * * *Final Report* * * DATE OF EXAM: Jan 22 2023 4:40PM LDU 1232 - US ABD SPLEEN -NB / PROCEDURE REASON: nausea * * * * Physician Interpretation * * * * EXAMINATION: RIGHT UPPER QUADRANT ULTRASOUND AND ULTRASOUND SPLEEN, 01/22/2023 CLINICAL HISTORY: Right upper quadrant abdominal pain. Nausea. TECHNIQUE: Sonography of the right upper quadrant was performed. Images were obtained and stored in a permanent archive. MQ: URUQ_2 COMPARISON: 04/09/2016 RESULT: Pancreas: Normal sonographic appearance. Portions obscured: tail Liver: Normal size. Echotexture: Normal, homogeneous. Echogenicity: Normal Surface contour: Smooth Lesions: None. Biliary: No intrahepatic biliary duct dilation. CBD: 0.4 cm at the hilum. Gallbladder: Normal appearance. No gallstones. Right Kidney: Normal size and appearance, 10.9 cm length. No hydronephrosis. Spleen: Normal size and appearance, 10.4 cm length. Ascites: None. IMPRESSION: Normal sonographic appearance of the right upper quadrant. Normal sonographic appearance of the spleen. Rubbing Bed Operator: [facility] Transcribe Date/Time: Jan 22 2023 5:00P Dictated by : DARA NICHOLS MD This examination was interpreted and the report reviewed and electronically signed by: DARA NICHOLS MD on Jan 22 2023 5:03PM EST [id number] ACN Normal [facility] HCG QUAL UR B/Oon 11-01-2022 status Negative neg - [facility] Quality Check Yes [facility] LABORATORYOrdered By: César Torres on 05-09-2022 Albumin BCP dye [Mass/Vol] 3.9 G/dL Invalid Interpretation Code 3.5 - 5.0 G/dL AO ADM SS Albumin/Globulin [Mass ratio] 1.3 {ratio} Invalid Interpretation Code 1.1 - 2.5 ratio AO ADM SS ALP [Catalytic activity/Vol] 48 U/L Invalid Interpretation Code 40 - 135 U/L AO ADM SS ALT With P-5'-P [Catalytic activity/Vol] 35 U/L Invalid Interpretation Code 14 - 59 U/L AO ADM SS Appearance (U) Clear (05/09/22 2:52 PM) Invalid Interpretation Code Clear AO Auto Urine SS AST With P-5'-P [Catalytic activity/Vol] 29 U/L Invalid Interpretation Code 10 - 40 U/L AO ADM SS Bilirubin [Mass/Vol] 1.0 mg/dL Invalid Interpretation Code 0.2 - 1.0 mg/dL AO ADM SS Bilirubin Ql (U) Negative (05/09/22 2:52 PM) Invalid Interpretation Code Negative AO Auto Urine SS Calcium [Mass/Vol] 9.1 mg/dL Invalid Interpretation Code 8.4 - 10.2 mg/dL AO ADM SS Chloride [Moles/Vol] 105 mmol/L Invalid Interpretation Code 98 - 107 mmol/L AO ADM SS CO2 [Moles/Vol] 26 mmol/L Invalid Interpretation Code 22 - 29 mmol/L AO ADM SS Color (U) Yellow (05/09/22 2:52 PM) Invalid Interpretation Code AO Auto Urine SS CPK 445 1 Invalid Interpretation Code 26 - 192 U/L AO ADM SS Creatinine [Mass/Vol] 0.88 mg/dL Invalid Interpretation Code 0.55 - 1.02 mg/dL AO ADM SS Electrolyte Balance 8.0 mEq/L Invalid Interpretation Code 4.0 - 15.0 mEq/L AO ADM SS Globulin 3.1 G/dL Invalid Interpretation Code AO ADM SS Glucose [Mass/Vol] 61 mg/dL Invalid Interpretation Code 70 - 105 mg/dL AO ADM SS Glucose Test strip (U) [Mass/Vol] Negative Invalid Interpretation Code Negativemg/dL AO Auto Urine SS HCG ( test) Ql Negative (05/09/22 2:52 PM) Invalid Interpretation Code AO Manual Urine SS Hemoglobin Auto test strip (U) [Mass/Vol] Negative (05/09/22 2:52 PM) Invalid Interpretation Code Negative AO Auto Urine SS Ketones Ql (U) Negative Invalid Interpretation Code Negativemg/dL AO Auto Urine SS Potassium [Moles/Vol] 3.7 mmol/L Invalid Interpretation Code 3.5 - 5.1 mmol/L AO ADM SS test (u) int Not detected Invalid Interpretation Code AO Manual Urine SS Protein [Mass/Vol] 7.0 G/dL Invalid Interpretation Code 6.4 - 8.2 G/dL AO ADM SS Sodium [Moles/Vol] 139 mmol/L Invalid Interpretation Code 136 - 145 mmol/L AO ADM SS UA Leuk Est Negative (05/09/22 2:52 PM) Invalid Interpretation Code Negative AO Auto Urine SS UA Nitrite Negative (05/09/22 2:52 PM) Invalid Interpretation Code Negative AO Auto Urine SS UA pH 5.5 (05/09/22 2:52 PM) Invalid Interpretation Code 5.0 - 8.0 AO Auto Urine SS UA Protein Negative Invalid Interpretation Code Negativemg/dL AO Auto Urine SS UA Spec Grav >=1.030 *ABN* (05/09/22 2:52 PM) Invalid Interpretation Code 1.015-1.025 AO Auto Urine SS UA Specimen Type Clean Catch (05/09/22 2:52 PM) Invalid Interpretation Code AO Auto Urine SS UA Urobilinogen 0.2 E.U./dL Invalid Interpretation Code 0.2-1.0E.U./dL AO Auto Urine SS Urea nitrogen [Mass/Vol] 18 mg/dL Invalid Interpretation Code 7 - 18 mg/dL AO ADM SS Urea nitrogen/Creatinine [Mass ratio] 20 ratio Invalid Interpretation Code 7 - 27 ratio AO ADM SS LABORATORYOrdered By: Lien Barney on 05-09-2022 Basophil, Absolute 0.1 103/mcL Invalid Interpretation Code 0.0 - 0.2 10^3/mcL AO Workflow SS Basophils/100 WBC (Bld) 0.5 % Invalid Interpretation Code 0.0 - 2.5 % AO Workflow SS Eosinophil, Absolute 0.6 103/mcL Invalid Interpretation Code 0.0 - 0.4 10^3/mcL AO Workflow SS Eosinophils/100 WBC (Bld) 4.9 % Invalid Interpretation Code 0.0 - 7.0 % AO Workflow SS Erythrocyte distribution width (RBC) [Ratio] 13.1 % Invalid Interpretation Code 11.5 - 14.5 % AO Workflow SS Hematocrit (Bld) [Volume fraction] 38.7 % Invalid Interpretation Code 37.0 - 47.0 % AO Workflow SS Hemoglobin (Bld) [Mass/Vol] 13.3 G/dL Invalid Interpretation Code 12.0 - 16.0 G/dL AO Workflow SS Lymphocyte, Absolute 2.6 103/mcL Invalid Interpretation Code 0.8 - 3.9 10^3/mcL AO Workflow SS Lymphocytes/100 WBC (Bld) 21.2 % Invalid Interpretation Code 10.0 - 50.0 % AO Workflow SS MCH (RBC) [Entitic mass] 30.4 pg Invalid Interpretation Code 27.0 - 31.2 pg AO Workflow SS MCHC 34.2 G/dL Invalid Interpretation Code 33.0 - 37.0 G/dL AO Workflow SS MCV (RBC) [Entitic vol] 88.8 fL Invalid Interpretation Code 80.0 - 94.0 fL AO Workflow SS Monocyte distribution width Auto (Bld) [Entitic vol] 16.76 Invalid Interpretation Code 0.00 - 20.00 AO Workflow SS Comment on above: Result Comment: For ED adult patients suspected of sepsis, MDW<=20.0 does not rule out sepsis or risk of sepsis Monocyte, Absolute 0.8 103/mcL Invalid Interpretation Code 0.2 - 1.0 10^3/mcL AO Workflow SS Monocytes/100 WBC (Bld) 6.9 % Invalid Interpretation Code 1.7 - 13.0 % AO Workflow SS Neutrophil, Absolute 8.1 103/mcL Invalid Interpretation Code 2.9 - 6.2 10^3/mcL AO Workflow SS Neutrophils/100 WBC (Bld) 66.5 % Invalid Interpretation Code 37.0 - 80.0 % AO Workflow SS Platelet mean volume (Bld) [Entitic vol] 7.5 fL Invalid Interpretation Code 7.4 - 10.4 fL AO Workflow SS Platelets (Bld) [#/Vol] 311 103/mcL Invalid Interpretation Code 130 - 400 10^3/mcL AO Workflow SS RBC (Bld) [#/Vol] 4.36 106/mcL Invalid Interpretation Code 4.20 - 5.40 10^6/mcL AO Workflow SS WBC 12.2 103/mcL Invalid Interpretation Code 4.6 - 10.8 10^3/mcL AO Workflow SS LABORATORYOrdered By: SYSTEM SYSTEM on 05-09-2022 GFR 92 ml/min/1.73sqm Invalid Interpretation Code AO Chemistry S GFR Non- 76 ml/min/1.73sqm Invalid Interpretation Code AO Chemistry S C-REACTIVE PROTEIN (CRP)on 0 01-11-2022 CRP [Mass/Vol] mg/L <0.9 mg/dL [facility] XR Ankle - left AP and Later al and obliqueon 12-01-2020 IMPRESSION: No radiographic evidence of osseous injury. Rubbing Bed Operator: PSCB Transcribe Date/Time: Dec 01 2020 4:36P Dictated by : BEATA HOLLOWAY MD This examination was interpreted and the report reviewed and electronically signed by: BEATA HOLLOWAY MD on Dec 01 2020 4:37PM [facility] [email or web address]] DIVISION OF RADIOLOGY * * *Final Report* * * DATE OF EXAM: Dec 01 2020 4:35PM WOX 5298 - XR ANKLE 3V AP/LAT/OBL LT / PROCEDURE REASON: Acute left ankle pain * * * * Physician Interpretation * * * * CLINICAL INDICATION: Ankle pain TECHNIQUE: 3 view radiographic study of the left ankle COMPARISON: None FINDINGS: No fracture or dislocation identified. Joint spaces preserved. Plantar calcaneal enthesophyte. DIVISION OF RADIOLOGY Provider, [facility] [place] - 12/01/2020 * * *Final Report* * * DATE OF EXAM: Dec 01 2020 4:35PM WOX 5298 - XR ANKLE 3V AP/LAT/OBL LT / PROCEDURE REASON: Acute left ankle pain * * * * Physician Interpretation * * * * CLINICAL INDICATION: Ankle pain TECHNIQUE: 3 view radiographic study of the left ankle COMPARISON: None FINDINGS: No fracture or dislocation identified. Joint spaces preserved. Plantar calcaneal enthesophyte. IMPRESSION IMPRESSION: No radiographic evidence of osseous injury. Rubbing Bed [facility] Transcribe Date/Time: Dec 01 2020 4:36P Dictated by : BEATA HOLLOWAY MD This examination was interpreted and the report reviewed and electronically signed by: BEATA HOLLOWAY MD on Dec 01 2020 4:37PM EST [facility] Radiology Study observation (narrative) Rafal Sapp XR Ankle - left AP and Later al and obliqueOrdered By: Cc Provider on 12-01-2020 [facility] Vital Signs Date Time Vital Sign Value Performing Clinician Facility 10-27-2024 12:01-0500 Body mass index (BMI) [Ratio] 36.17 kg/m2 Amirah ClPeak 10 PA-C Work Phone: [facility] 10-27-2024 12:01-0500 Body temperature 98.49 [degF] Amirah Clutter PA-C Work Phone: [facility] 10-27-2024 12:01-0500 Body weight 84 kg Amirah Clutter PA-C Work Phone: [facility] 10-27-2024 12:01-0500 Diastolic blood pressure 66 mm[Hg] Amirah Clutter PA-C Work Phone: [facility] 10-27-2024 12:01-0500 Heart rate 104 /min Amirah Clutter PA-C Work Phone: [facility] 10-27-2024 12:01-0500 Respiratory rate 20 /min Amirah Clutter PA-C Work Phone: [facility] 10-27-2024 12:01-0500 SaO2% (BldA) [Mass fraction] 98 % Amirah Clutter PA-C Work Phone: [facility] 10-27-2024 12:01-0500 Systolic blood pressure 114 mm[Hg] Amirah Clutter PA-C Work Phone: [facility] 10-13-2024 11:43-0500 Body mass index (BMI) [Ratio] 37.24 kg/m2 Abel Thornton APRN.[employer]CH[employer]IC Work Phone: [facility] 10-13-2024 11:43-0500 Body temperature 97.81 [degF] Abel Thornton APRN.AUTO HEADLIGHT MECHANIC Work Phone: [facility] 10-13-2024 11:43-0500 Body weight 86.5 kg Abel Thornton APRN.AUT[employer] MECH[employer]IC Work Phone: [facility] 10-13-2024 11:43-0500 Diastolic blood pressure 68 mm[Hg] Abel Thornton APRN.AUT[employer] MECH[employer]IC Work Phone: [facility] 10-13-2024 11:43-0500 Heart rate 88 /min Abel Thornton APRN.[employer] MECH[employer]IC Work Phone: [facility] 10-13-2024 11:43-0500 Respiratory rate 16 /min Abel Thornton APRN.AUT[employer] HEADL[employer] MECH[employer]IC Work Phone: [facility] 10-13-2024 11:43-0500 SaO2% (BldA) [Mass fraction] 98 % Abel Thornton APRN.AUTO HEADLIGHT MECHANIC Work Phone: [facility] 10-13-2024 11:43-0500 Systolic blood pressure 118 mm[Hg] Abel Thornton APRN.AUTO HEADLIGHT MECHANIC Work Phone: [facility] 09-23-2024 08:11-0500 Body height 152.4 cm Jose Hritz RECORDS MANAGEMENT ENGINEER.AUTO HEADLIGHT MECHANIC Work Phone: [facility] 09-23-2024 08:11-0500 Body mass index (BMI) [Ratio] 35.54 kg/m2 Jose Hritz RECORDS MANAGEMENT ENGINEER.AUTO HEADLIGHT MECHANIC Work Phone: [facility] 09-23-2024 08:11-0500 Body weight 82.56 kg Jose Hritz RECORDS MANAGEMENT ENGINEER.AUTO HEADLIGHT MECHANIC Work Phone: [facility] 09-23-2024 08:11-0500 Diastolic blood pressure 74 mm[Hg] Jose Hritz RECORDS MANAGEMENT ENGINEER.AUTO HEADLIGHT MECHANIC Work Phone: [facility] 09-23-2024 08:11-0500 Heart rate 75 /min Jose Hritz RECORDS MANAGEMENT ENGINEER.AUTO HEADLIGHT MECHANIC Work Phone: [facility] 09-23-2024 08:11-0500 Systolic blood pressure 122 mm[Hg] Jose Hritz RECORDS MANAGEMENT ENGINEER.AUTO HEADLIGHT MECHANIC Work Phone: [facility] 08-03-2024 15:44-0400 Diastolic blood pressure 60 mm[Hg] Edgardo Ramirez MD Work Phone: [facility] 08-03-2024 15:44-0400 Heart rate 16 /min Edgardo Ramriez MD Work Phone: [facility] 08-03-2024 15:44-0400 Respiratory rate 16 /min Edgardo Ramirez MD Work Phone: [facility] 08-03-2024 15:44-0400 SaO2% (BldA) [Mass fraction] 96 % Edgardo Ramirez MD Work Phone: [facility] 08-03-2024 15:44-0400 Systolic blood pressure 107 mm[Hg] Edgardo Ramirez MD Work Phone: [facility] 08-03-2024 15:19-0400 Body temperature 97.5 [degF] Edgardo Ramirez MD Work Phone: [facility] 08-03-2024 14:37-0400 Body height 152.4 cm Edgardo Ramirez MD Work Phone: [facility] 08-03-2024 14:37-0400 Body mass index (BMI) [Ratio] 34.76 kg/m2 Edgardo Ramirez MD Work Phone: [facility] 08-03-2024 14:37-0400 Body weight 80.74 kg Edgardo Ramirez MD Work Phone: [facility] 07-29-2024 14:56-0400 Body height 152.4 cm Jose Hritz RECORDS MANAGEMENT ENGINEER.AUTO HEADLIGHT MECHANIC Work Phone: [facility] 07-29-2024 14:56-0400 Body mass index (BMI) [Ratio] 34.76 kg/m2 Jose Hritz RECORDS MANAGEMENT ENGINEER.AUTO HEADLIGHT MECHANIC Work Phone: [facility] 07-29-2024 14:56-0400 Body weight 80.74 kg Jose Hritz RECORDS MANAGEMENT ENGINEER.AUTO HEADLIGHT MECHANIC Work Phone: [facility] 07-29-2024 14:56-0400 Diastolic blood pressure 72 mm[Hg] Jose Hritz RECORDS MANAGEMENT ENGINEER.AUTO HEADLIGHT MECHANIC Work Phone: [facility] 07-29-2024 14:56-0400 Heart rate 75 /min Jose Hritz RECORDS MANAGEMENT ENGINEER.AUTO HEADLIGHT MECHANIC Work Phone: [facility] 07-29-2024 14:56-0400 Systolic blood pressure 118 mm[Hg] Jose Hritz RECORDS MANAGEMENT ENGINEER.AUTO HEADLIGHT MECHANIC Work Phone: [facility] 06-15-2024 14:20-0400 Body height 152.4 cm Kishor Hernandez MD Work Phone: [facility] 06-15-2024 14:20-0400 Body mass index (BMI) [Ratio] 34.96 kg/m2 Kishor Hernandez MD Work Phone: [facility] 06-15-2024 14:20-0400 Body weight 81.19 kg Kishor Hernandez MD Work Phone: [facility] 06-15-2024 14:20-0400 Diastolic blood pressure 74 mm[Hg] Kishor Hernandez MD Work Phone: [facility] 06-15-2024 14:20-0400 Heart rate 81 /min Kishor Hernandez MD Work Phone: [facility] 06-15-2024 14:20-0400 Respiratory rate 16 /min Kishor Hernandez MD Work Phone: [facility] 06-15-2024 14:20-0400 Systolic blood pressure 100 mm[Hg] Kishor Hernandez MD Work Phone: [facility] 06-09-2024 16:35-0400 Body mass index (BMI) [Ratio] 31.16 kg/m2 Darya Older RECORDS MANAGEMENT ENGINEER.AUTO HEADLIGHT MECHANIC Work Phone: [facility] 06-09-2024 16:35-0400 Body weight 79.8 kg Darya Older RECORDS MANAGEMENT ENGINEER.AUTO HEADLIGHT MECHANIC Work Phone: [facility] 06-09-2024 16:35-0400 Diastolic blood pressure 78 mm[Hg] Darya Older RECORDS MANAGEMENT ENGINEER.AUTO HEADLIGHT MECHANIC Work Phone: [facility] 06-09-2024 16:35-0400 Heart rate 72 /min Darya Older RECORDS MANAGEMENT ENGINEER.AUTO HEADLIGHT MECHANIC Work Phone: [facility] 06-09-2024 16:35-0400 Respiratory rate 16 /min Darya Older RECORDS MANAGEMENT ENGINEER.AUTO HEADLIGHT MECHANIC Work Phone: [facility] 06-09-2024 16:35-0400 SaO2% (BldA) [Mass fraction] 98 % Darya Older RECORDS MANAGEMENT ENGINEER.AUTO HEADLIGHT MECHANIC Work Phone: [facility] 06-09-2024 16:35-0400 Systolic blood pressure 112 mm[Hg] Darya Older RECORDS MANAGEMENT ENGINEER.AUTO HEADLIGHT MECHANIC Work Phone: [facility] 05-01-2024 09:32-0400 Body mass index (BMI) [Ratio] 30.89 kg/m2 Agustina CLEANING Work Phone: [facility] 05-01-2024 09:32-0400 Body temperature 98.01 [degF] Krislyn Aberegg PA Work Phone: [facility] 05-01-2024 09:32-0400 Body weight 79.1 kg Krislyn Aberegg PA Work Phone: [facility] 05-01-2024 09:32-0400 Diastolic blood pressure 90 mm[Hg] Krislyn Aberegg PA Work Phone: [facility] 05-01-2024 09:32-0400 Heart rate 70 /min Krislyn Aberegg PA Work Phone: [facility] 05-01-2024 09:32-0400 Respiratory rate 18 /min Krislyn Aberegg PA Work Phone: [facility] 05-01-2024 09:32-0400 SaO2% (BldA) [Mass fraction] 98 % Krislyn Aberegg PA Work Phone: [facility] 05-01-2024 09:32-0400 Systolic blood pressure 122 mm[Hg] Krislyn Aberegg PA Work Phone: [facility] 04-30-2024 09:48-0400 Body mass index (BMI) [Ratio] 30.85 kg/m2 Abel Thornton APRN.AUTO HEADLIGHT MECHANIC Work Phone: [facility] 04-30-2024 09:48-0400 Body temperature 97.2 [degF] Abel Thornton APRN.AUTO HEADLIGHT MECHANIC Work Phone: [facility] 04-30-2024 09:48-0400 Body weight 79 kg Abel Thornton APRN.AUTO HEADLIGHT MECHANIC Work Phone: [facility] 04-30-2024 09:48-0400 Diastolic blood pressure 72 mm[Hg] Abel Thornton APRN.AUTO HEADLIGHT MECHANIC Work Phone: [facility] 04-30-2024 09:48-0400 Heart rate 62 /min Abel Thornton APRN.AUTO HEADLIGHT MECHANIC Work Phone: [facility] 04-30-2024 09:48-0400 Respiratory rate 18 /min Abel Thornton RECORDS MANAGEMENT ENGINEER.AUTO HEADLIGHT MECHANIC Work Phone: [facility] 04-30-2024 09:48-0400 SaO2% (BldA) [Mass fraction] 98 % Abel Thornton RECORDS MANAGEMENT ENGINEER.AUTO HEADLIGHT MECHANIC Work Phone: [facility] 04-30-2024 09:48-0400 Systolic blood pressure 110 mm[Hg] Abel Hillary RECORDS MANAGEMENT ENGINEER.AUTO HEADLIGHT MECHANIC Work Phone: [facility] 04-28-2024 15:47-0400 Body mass index (BMI) [Ratio] 31.35 kg/m2 Darya Older RECORDS MANAGEMENT ENGINEER.AUTO HEADLIGHT MECHANIC Work Phone: [facility] 04-28-2024 15:47-0400 Body weight 80.29 kg Darya Older RECORDS MANAGEMENT ENGINEER.AUTO HEADLIGHT MECHANIC Work Phone: [facility] 04-28-2024 15:47-0400 Diastolic blood pressure 70 mm[Hg] Darya Older RECORDS MANAGEMENT ENGINEER.AUTO HEADLIGHT MECHANIC Work Phone: [facility] 04-28-2024 15:47-0400 Heart rate 92 /min Darya Older RECORDS MANAGEMENT ENGINEER.AUTO HEADLIGHT MECHANIC Work Phone: [facility] 04-28-2024 15:47-0400 Respiratory rate 16 /min Darya Older RECORDS MANAGEMENT ENGINEER.AUTO HEADLIGHT MECHANIC Work Phone: [facility] 04-28-2024 15:47-0400 SaO2% (BldA) [Mass fraction] 99 % Darya Older RECORDS MANAGEMENT ENGINEER.AUTO HEADLIGHT MECHANIC Work Phone: [facility] 04-28-2024 15:47-0400 Systolic blood pressure 112 mm[Hg] Darya Older RECORDS MANAGEMENT ENGINEER.AUTO HEADLIGHT MECHANIC Work Phone: [facility] 03-12-2024 15:05-0400 Body mass index (BMI) [Ratio] 30.19 kg/m2 Abelino Kessler MD Work Phone: [facility] 03-12-2024 15:05-0400 Body weight 77.29 kg Abelino Kessler MD Work Phone: [facility] 03-12-2024 15:05-0400 Diastolic blood pressure 70 mm[Hg] Abelino Kessler MD Work Phone: [facility] 03-12-2024 15:05-0400 Systolic blood pressure 110 mm[Hg] Abelino Kessler MD Work Phone: [facility] 02-16-2024 14:02-0400 Body mass index (BMI) [Ratio] 29.26 kg/m2 Abelino Kessler MD Work Phone: [facility] 02-16-2024 14:02-0400 Body weight 74.93 kg Abelino Kessler MD Work Phone: [facility] 02-16-2024 14:02-0400 Diastolic blood pressure 78 mm[Hg] Abelino Kessler MD Work Phone: [facility] 02-16-2024 14:02-0400 Systolic blood pressure 110 mm[Hg] Abelino Kessler MD Work Phone: [facility] 02-06-2024 15:52-0400 Diastolic blood pressure 60 mm[Hg] Manuela Duckworth MD Work Phone: [facility] 02-06-2024 15:52-0400 Heart rate 93 /min Manuela Duckworth MD Work Phone: [facility] 02-06-2024 15:52-0400 Respiratory rate 14 /min Manuela Duckworth MD Work Phone: [facility] 02-06-2024 15:52-0400 SaO2% (BldA) [Mass fraction] 96 % Manuela Duckworth MD Work Phone: [facility] 02-06-2024 15:52-0400 Systolic blood pressure 110 mm[Hg] Manuela Duckworth MD Work Phone: [facility] 02-06-2024 13:32-0400 Body mass index (BMI) [Ratio] 29.94 kg/m2 Sarina Montoya APRN.CNM Work Phone: [facility] 02-06-2024 13:32-0400 Body temperature 99.61 [degF] Sarina Plotts RECORDS MANAGEMENT ENGINEER.CNM Work Phone: [facility] 02-06-2024 13:32-0400 Body weight 76.66 kg Sarina Villats RECORDS MANAGEMENT ENGINEER.CNM Work Phone: [facility] 02-06-2024 13:32-0400 Diastolic blood pressure 66 mm[Hg] Sarina Plotts RECORDS MANAGEMENT ENGINEER.CNM Work Phone: [facility] 02-06-2024 13:32-0400 Systolic blood pressure 110 mm[Hg] Sarina Plotts RECORDS MANAGEMENT ENGINEER.CNM Work Phone: [facility] 02-04-2024 08:00-0400 Body temperature 97.6 [degF] [facility] 02-04-2024 08:00-0400 Diastolic blood pressure 74 mm[Hg] [facility] 02-04-2024 08:00-0400 Heart rate 69 /min [facility] 02-04-2024 08:00-0400 Respiratory rate 18 /min [facility] 02-04-2024 08:00-0400 SaO2% (BldA) [Mass fraction] 97 % [facility] 02-04-2024 08:00-0400 Systolic blood pressure 111 mm[Hg] [facility] 02-02-2024 21:50-0400 Body height 152.4 cm [facility] 02-02-2024 21:50-0400 Body mass index (BMI) [Ratio] 34.4 kg/m2 [facility] 02-02-2024 21:50-0400 Body weight 79.9 kg [facility] 01-30-2024 13:28-0400 Body mass index (BMI) [Ratio] 31.18 kg/m2 Ob Ultrasound Work Phone: [facility] 01-30-2024 13:28-0400 Body weight 79.83 kg Ob Ultrasound Work Phone: [facility] 01-30-2024 13:28-0400 Diastolic blood pressure 66 mm[Hg] Abelino Kessler MD Work Phone: [facility] 01-30-2024 13:28-0400 Systolic blood pressure 102 mm[Hg] Abelino Kessler MD Work Phone: [facility] 01-19-2024 10:34-0400 Body weight 79.92 kg Abelino Kessler MD Work Phone: [facility] 01-19-2024 10:34-0400 Diastolic blood pressure 72 mm[Hg] Abelino Kessler MD Work Phone: [facility] 01-19-2024 10:34-0400 Systolic blood pressure 110 mm[Hg] Abelino Kessler MD Work Phone: [facility] 01-12-2024 08:15-0400 Body weight 79.83 kg Abelino Kessler MD Work Phone: [facility] 01-12-2024 08:15-0400 Diastolic blood pressure 64 mm[Hg] Abelino Kessler MD Work Phone: [facility] 01-12-2024 08:15-0400 Systolic blood pressure 118 mm[Hg] Abelino Kessler MD Work Phone: [facility] 12-17-2023 15:08-0400 Body height [address] [facility] 12-17-2023 15:08-0400 Body weight 77.[address] [facility] 12-15-2023 16:24-0400 Body weight 78.47 kg Abelino Kessler MD Work Phone: [facility] 12-15-2023 16:24-0400 Diastolic blood pressure 70 mm[Hg] Abelino Kessler MD Work Phone: [facility] 12-15-2023 16:24-0400 Systolic blood pressure 110 mm[Hg] Abelino Kessler MD Work Phone: [facility] 12-14-2023 01:51-0500 Body temperature 98.6 [degF] [facility] 12-14-2023 01:51-0500 Diastolic blood pressure 67 mm[Hg] [facility] 12-14-2023 01:51-0500 Heart rate 75 /min [facility] 12-14-2023 01:51-0500 Respiratory rate 14 /min [facility] 12-14-2023 01:51-0500 SaO2% (BldA) [Mass fraction] 100 % [facility] 12-14-2023 01:51-0500 Systolic blood pressure 106 mm[Hg] [facility] 12-13-2023 22:12-0500 Body height 152.4 cm [facility] 12-13-2023 22:12-0500 Body mass index (BMI) [Ratio] 34.1 kg/m2 [facility] 12-13-2023 22:12-0500 Body weight 79.33 kg [facility] 12-10-2023 09:37-0500 Diastolic blood pressure 62 mm[Hg] Ob Ultrasound Work Phone: [facility] 12-10-2023 09:37-0500 Systolic blood pressure 102 mm[Hg] Ob Ultrasound Work Phone: [facility] 12-01-2023 16:20-0500 Body weight 78.02 kg Shu Reeves APRN.CNM Work Phone: [facility] 12-01-2023 16:20-0500 Diastolic blood pressure 68 mm[Hg] Shu Reeves APRN.CNM Work Phone: [facility] 12-01-2023 16:20-0500 Systolic blood pressure 108 mm[Hg] Shu Reeves APRN.CNM Work Phone: [facility] 11-24-2023 15:19-0500 Body height [address] [facility] 11-24-2023 15:19-0500 Body weight 78.[address] [facility] 11-17-2023 15:31-0500 Body weight 77.2 kg Abelino Kessler MD Work Phone: [facility] 11-17-2023 15:31-0500 Diastolic blood pressure 62 mm[Hg] Abelino eKssler MD Work Phone: [facility] 11-17-2023 15:31-0500 Systolic blood pressure 100 mm[Hg] Abelino Kessler MD Work Phone: [facility] 11-11-2023 09:22-0500 Body temperature 97.9 [degF] Zuleyma Praisler-Wood RECORDS MANAGEMENT ENGINEER.AUTO HEADLIGHT MECHANIC Work Phone: [facility] 11-11-2023 09:22-0500 Body weight 78.93 kg Zuleyma Praisler-Wood RECORDS MANAGEMENT ENGINEER.AUTO HEADLIGHT MECHANIC Work Phone: [facility] 11-11-2023 09:22-0500 Diastolic blood pressure 62 mm[Hg] Zuleyma Praisler-Wood RECORDS MANAGEMENT ENGINEER.AUTO HEADLIGHT MECHANIC Work Phone: [facility] 11-11-2023 09:22-0500 Heart rate 82 /min Zuleyma Praisler-Wood RECORDS MANAGEMENT ENGINEER.AUTO HEADLIGHT MECHANIC Work Phone: [facility] 11-11-2023 09:22-0500 Respiratory rate 16 /min Zuleyma Praisler-Wood RECORDS MANAGEMENT ENGINEER.AUTO HEADLIGHT MECHANIC Work Phone: [facility] 11-11-2023 09:22-0500 SaO2% (BldA) [Mass fraction] 98 % Zuleyma Praisler-Wood RECORDS MANAGEMENT ENGINEER.AUTO HEADLIGHT MECHANIC Work Phone: [facility] 11-11-2023 09:22-0500 Systolic blood pressure 110 mm[Hg] Zuleyma Praisler-Wood RECORDS MANAGEMENT ENGINEER.AUTO HEADLIGHT MECHANIC Work Phone: [facility] 09-24-2023 12:07-0500 Body temperature 97.9 [degF] Zuleyma Praisler-Wood RECORDS MANAGEMENT ENGINEER.AUTO HEADLIGHT MECHANIC Work Phone: [facility] 09-24-2023 12:07-0500 Body weight 77.56 kg Zuleyma Praisler-Wood RECORDS MANAGEMENT ENGINEER.AUTO HEADLIGHT MECHANIC Work Phone: [facility] 09-24-2023 12:07-0500 Diastolic blood pressure 72 mm[Hg] Zuleyma Praisler-Wood RECORDS MANAGEMENT ENGINEER.AUTO HEADLIGHT MECHANIC Work Phone: [facility] 09-24-2023 12:07-0500 Heart rate 80 /min Zuleyma Praisler-Wood RECORDS MANAGEMENT ENGINEER.AUTO HEADLIGHT MECHANIC Work Phone: [facility] 09-24-2023 12:07-0500 Respiratory rate 16 /min Zuleyma Praisler-Wood RECORDS MANAGEMENT ENGINEER.AUTO HEADLIGHT MECHANIC Work Phone: [facility] 09-24-2023 12:07-0500 SaO2% (BldA) [Mass fraction] 98 % Zuleyma Praisler-Wood RECORDS MANAGEMENT ENGINEER.AUTO HEADLIGHT MECHANIC Work Phone: [facility] 09-24-2023 12:07-0500 Systolic blood pressure 122 mm[Hg] Zuleyma Praisler-Wood RECORDS MANAGEMENT ENGINEER.AUTO HEADLIGHT MECHANIC Work Phone: [facility] 09-03-2023 16:28-0500 Body weight 73.21 kg Shu Reeves RECORDS MANAGEMENT ENGINEER.CNM Work Phone: [facility] 09-03-2023 16:28-0500 Diastolic blood pressure 64 mm[Hg] Shu Reeves RECORDS MANAGEMENT ENGINEER.CNM Work Phone: [facility] 09-03-2023 16:28-0500 Systolic blood pressure 108 mm[Hg] Shu Reeves RECORDS MANAGEMENT ENGINEER.CNM Work Phone: [facility] 08-07-2023 18:42-0400 Diastolic blood pressure 74 mm[Hg] [facility] 08-07-2023 18:42-0400 Heart rate 88 /min [facility] 08-07-2023 18:42-0400 Respiratory rate 16 /min [facility] 08-07-2023 18:42-0400 SaO2% (BldA) [Mass fraction] 99 % [facility] 08-07-2023 18:42-0400 Systolic blood pressure 108 mm[Hg] [facility] 08-07-2023 15:57-0400 Body height 152.4 cm [facility] 08-07-2023 15:57-0400 Body mass index (BMI) [Ratio] 31.1 kg/m2 [facility] 08-07-2023 15:57-0400 Body temperature 96.8 [degF] [facility] 08-07-2023 15:57-0400 Body weight 72.3 kg [facility] 08-04-2023 14:20-0400 Body weight 72.58 kg Abelino Kessler MD Work Phone: [facility] 08-04-2023 14:20-0400 Diastolic blood pressure 70 mm[Hg] Abelino Kessler MD Work Phone: [facility] 08-04-2023 14:20-0400 Systolic blood pressure 118 mm[Hg] Abelino Kessler MD Work Phone: [facility] 07-11-2023 13:12-0400 Body height 160 cm Shu Reeves RECORDS MANAGEMENT ENGINEER.CNM Work Phone: [facility] 07-11-2023 13:12-0400 Body weight 69.4 kg Shu Reeves RECORDS MANAGEMENT ENGINEER.CNM Work Phone: [facility] 07-11-2023 13:12-0400 Diastolic blood pressure 60 mm[Hg] Shu Reeves RECORDS MANAGEMENT ENGINEER.CNM Work Phone: [facility] 07-11-2023 13:12-0400 Systolic blood pressure 112 mm[Hg] Shu Reeves RECORDS MANAGEMENT ENGINEER.CNM Work Phone: [facility] 06-25-2023 09:49-0400 Body temperature 97.81 [degF] Abel Thornton APRN.AUTO HEADLIGHT MECHANIC Work Phone: [facility] 06-25-2023 09:49-0400 Body weight 68.95 kg Abel Thornton APRN.AUTO HEADLIGHT MECHANIC Work Phone: [facility] 06-25-2023 09:49-0400 Diastolic blood pressure 82 mm[Hg] Abel Thornton APRN.AUTO HEADLIGHT MECHANIC Work Phone: [facility] 06-25-2023 09:49-0400 Heart rate 72 /min Abel Thornton APRN.AUTO HEADLIGHT MECHANIC Work Phone: [facility] 06-25-2023 09:49-0400 Respiratory rate 18 /min Abel Thornton APRN.AUTO HEADLIGHT MECHANIC Work Phone: [facility] 06-25-2023 09:49-0400 SaO2% (BldA) [Mass fraction] 99 % Abel Thornton APRN.AUTO HEADLIGHT MECHANIC Work Phone: [facility] 06-25-2023 09:49-0400 Systolic blood pressure 118 mm[Hg] Abel Thornton RECORDS MANAGEMENT ENGINEER.AUTO HEADLIGHT MECHANIC Work Phone: [facility] 06-06-2023 12:54-0400 Body temperature 99.19 [degF] Chandler Burton MD Work Phone: [facility] 06-06-2023 12:54-0400 Body weight 69.4 kg Chandler Burton MD Work Phone: [facility] 06-06-2023 12:54-0400 Diastolic blood pressure 80 mm[Hg] Chandler Burton MD Work Phone: [facility] 06-06-2023 12:54-0400 Heart rate 94 /min Chandler Burton MD Work Phone: [facility] 06-06-2023 12:54-0400 Respiratory rate 21 /min Chandler Burton MD Work Phone: [facility] 06-06-2023 12:54-0400 SaO2% (BldA) [Mass fraction] 99 % Chandler Burton MD Work Phone: [facility] 06-06-2023 12:54-0400 Systolic blood pressure 126 mm[Hg] Chandler Burton MD Work Phone: [facility] 05-28-2023 09:37-0400 Body temperature 98.49 [degF] Shu Hackett RECORDS MANAGEMENT ENGINEER.AUTO HEADLIGHT MECHANIC Work Phone: [facility] 05-28-2023 09:37-0400 Body weight 68.58 kg Shu Roxann RECORDS MANAGEMENT ENGINEER.AUTO HEADLIGHT MECHANIC Work Phone: [facility] 05-28-2023 09:37-0400 Diastolic blood pressure 84 mm[Hg] Shu Hackett RECORDS MANAGEMENT ENGINEER.AUTO HEADLIGHT MECHANIC Work Phone: [facility] 05-28-2023 09:37-0400 Heart rate 70 /min Shu Hackett RECORDS MANAGEMENT ENGINEER.AUTO HEADLIGHT MECHANIC Work Phone: [facility] 05-28-2023 09:37-0400 Respiratory rate 21 /min Shu Hackett RECORDS MANAGEMENT ENGINEER.AUTO HEADLIGHT MECHANIC Work Phone: [facility] 05-28-2023 09:37-0400 SaO2% (BldA) [Mass fraction] 99 % Shu Hackett RECORDS MANAGEMENT ENGINEER.AUTO HEADLIGHT MECHANIC Work Phone: [facility] [facility] 05-28-2023 09:37-0400 Systolic blood pressure 119 mm[Hg] Shu Hackett RECORDS MANAGEMENT ENGINEER.AUTO HEADLIGHT MECHANIC Work Phone: [facility] 05-13-2023 15:35-0400 Body weight 68.95 kg Liss Lio RECORDS MANAGEMENT ENGINEER.AUTO HEADLIGHT MECHANIC Work Phone: [facility] 05-13-2023 15:35-0400 Diastolic blood pressure 66 mm[Hg] Liss Lio RECORDS MANAGEMENT ENGINEER.AUTO HEADLIGHT MECHANIC Work Phone: [facility] 05-13-2023 15:35-0400 Systolic blood pressure 102 mm[Hg] Liss Lio RECORDS MANAGEMENT ENGINEER.AUTO HEADLIGHT MECHANIC Work Phone: [facility] 04-02-2023 15:22-0400 Body weight 70.17 kg Liss Lio RECORDS MANAGEMENT ENGINEER.AUTO HEADLIGHT MECHANIC Work Phone: [facility] 04-02-2023 15:22-0400 Diastolic blood pressure 68 mm[Hg] Liss Lio RECORDS MANAGEMENT ENGINEER.AUTO HEADLIGHT MECHANIC Work Phone: [facility] 04-02-2023 15:22-0400 Heart rate 81 /min Liss Lio RECORDS MANAGEMENT ENGINEER.AUTO HEADLIGHT MECHANIC Work Phone: [facility] 04-02-2023 15:22-0400 SaO2% (BldA) [Mass fraction] 98 % Liss Lio RECORDS MANAGEMENT ENGINEER.AUTO HEADLIGHT MECHANIC Work Phone: [facility] 04-02-2023 15:22-0400 Systolic blood pressure 98 mm[Hg] Liss Lio RECORDS MANAGEMENT ENGINEER.AUTO HEADLIGHT MECHANIC Work Phone: [facility] 01-22-2023 19:00-0400 Body height 149.9 cm Kishor Hernandez MD Work Phone: [facility] 01-22-2023 19:00-0400 Body temperature 98.8 [degF] Kishor Hernandez MD Work Phone: [facility] 01-22-2023 19:00-0400 Body weight 70.31 kg Kishor Hernandez MD Work Phone: [facility] 01-22-2023 19:00-0400 Diastolic blood pressure 60 mm[Hg] Kishor Hernandez MD Work Phone: [facility] 01-22-2023 19:00-0400 Heart rate 81 /min Kishor Hernandez MD Work Phone: [facility] 01-22-2023 19:00-0400 Respiratory rate 12 /min Kishor Hernandez MD Work Phone: [facility] 01-22-2023 19:00-0400 SaO2% (BldA) [Mass fraction] 94 % Kishor Hernandez MD Work Phone: [facility] 01-22-2023 19:00-0400 Systolic blood pressure 120 mm[Hg] Kishor Hernandez MD Work Phone: [facility] 11-01-2022 12:26-0500 Body temperature 98.2 [degF] Anthony Patterson RECORDS MANAGEMENT ENGINEER.AUTO HEADLIGHT MECHANIC Work Phone: [facility] 11-01-2022 12:26-0500 Body weight 72.03 kg Anthony Patterson RECORDS MANAGEMENT ENGINEER.AUTO HEADLIGHT MECHANIC Work Phone: [facility] 11-01-2022 12:26-0500 Diastolic blood pressure 72 mm[Hg] Anthony Patterson RECORDS MANAGEMENT ENGINEER.AUTO HEADLIGHT MECHANIC Work Phone: [facility] 11-01-2022 12:26-0500 Heart rate 88 /min Anthony Patterson RECORDS MANAGEMENT ENGINEER.AUTO HEADLIGHT MECHANIC Work Phone: [facility] 11-01-2022 12:26-0500 Respiratory rate 16 /min Anthony [facility] RECORDS MANAGEMENT ENGINEER.AUTO HEADLIGHT MECHANIC Work Phone: [facility] 11-01-2022 12:26-0500 SaO2% (BldA) [Mass fraction] 97 % Anthony [facility] RECORDS MANAGEMENT ENGINEER.AUTO HEADLIGHT MECHANIC Work Phone: [facility] 11-01-2022 12:26-0500 Systolic blood pressure 126 mm[Hg] Anthony [facility] RECORDS MANAGEMENT ENGINEER.AUTO HEADLIGHT MECHANIC Work Phone: [facility] 09-18-2022 17:36-0500 Body weight 70.76 kg Darya Older RECORDS MANAGEMENT ENGINEER.AUTO HEADLIGHT MECHANIC Work Phone: [facility] 09-18-2022 17:36-0500 Diastolic blood pressure 66 mm[Hg] Darya Older RECORDS MANAGEMENT ENGINEER.AUTO HEADLIGHT MECHANIC Work Phone: [facility] 09-18-2022 17:36-0500 Heart rate 72 /min Darya Older RECORDS MANAGEMENT ENGINEER.AUTO HEADLIGHT MECHANIC Work Phone: [facility] 09-18-2022 17:36-0500 Respiratory rate 16 /min Darya Older RECORDS MANAGEMENT ENGINEER.AUTO HEADLIGHT MECHANIC Work Phone: [facility] 09-18-2022 17:36-0500 Systolic blood pressure 118 mm[Hg] Darya Older RECORDS MANAGEMENT ENGINEER.AUTO HEADLIGHT MECHANIC Work Phone: [facility] 09-09-2022 10:36-0500 Body temperature 99 [degF] Shaun Nikita RECORDS MANAGEMENT ENGINEER.AUTO HEADLIGHT MECHANIC Work Phone: [facility] 09-09-2022 10:36-0500 Diastolic blood pressure 62 mm[Hg] Shaun Nikita RECORDS MANAGEMENT ENGINEER.AUTO HEADLIGHT MECHANIC Work Phone: [facility] 09-09-2022 10:36-0500 Heart rate 76 /min Shaun Nikita RECORDS MANAGEMENT ENGINEER.AUTO HEADLIGHT MECHANIC Work Phone: [facility] 09-09-2022 10:36-0500 Respiratory rate 16 /min Shaun Nikita RECORDS MANAGEMENT ENGINEER.AUTO HEADLIGHT MECHANIC Work Phone: [facility] 09-09-2022 10:36-0500 SaO2% (BldA) [Mass fraction] 99 % Shaun Shelton SUSAN.AUTO HEADLIGHT MECHANIC Work Phone: [facility] 09-09-2022 10:36-0500 Systolic blood pressure 120 mm[Hg] Shaun Shelton SUSAN.AUTO HEADLIGHT MECHANIC Work Phone: [facility] 06-19-2022 17:13-0400 Body weight 66.68 kg Kishor Hernandez MD Work Phone: [facility] 06-19-2022 17:13-0400 Diastolic blood pressure 76 mm[Hg] Kishor Hernandez MD Work Phone: [facility] 06-19-2022 17:13-0400 Heart rate 67 /min Kishor Hernandez MD Work Phone: [facility] 06-19-2022 17:13-0400 Respiratory rate 16 /min Kishor Hernandez MD Work Phone: [facility] 06-19-2022 17:13-0400 SaO2% (BldA) [Mass fraction] 8 % Kishor Hernandez MD Work Phone: [facility] 06-19-2022 17:13-0400 Systolic blood pressure 118 mm[Hg] Kishor Hernandez MD Work Phone: [facility] 05-09-2022 17:24-0400 Diastolic blood pressure 78 mm[Hg] LEXY ZAMUDIO DO [facility] 05-09-2022 17:24-0400 Heart rate 74 /min LEXY ZAMUDIO DO [facility] 05-09-2022 17:24-0400 Reason For Taking VItal Signs LEXY ZAMUDIO DO [facility] 05-09-2022 17:24-0400 Respiratory rate 16 /min LEXY ZAMUDIO DO [facility] 05-09-2022 17:24-0400 Systolic blood pressure 111 mm[Hg] LEXY ESQUEDAKA DO [facility] 05-09-2022 16:01-0400 Diastolic blood pressure 74 mm[Hg] LEXY DURESKA DO [facility] 05-09-2022 16:01-0400 Heart rate 81 /min LEXY DURESKA DO [facility] 05-09-2022 16:01-0400 Respiratory rate 11 /min LEXY DURESKA DO [facility] 05-09-2022 16:01-0400 Systolic blood pressure 120 mm[Hg] LEXY DURESKA DO [facility] 05-09-2022 14:17-0400 Body temperature 99.86 [degF] LEXY DURESKA DO [facility] 05-09-2022 14:17-0400 Diastolic blood pressure 71 mm[Hg] LEXY DURESKA DO [facility] 05-09-2022 14:17-0400 Heart rate 86 /min LEXY DURESKA DO [facility] 05-09-2022 14:17-0400 Respiratory rate 16 /min LEXY DURESKA DO [facility] 05-09-2022 14:17-0400 Systolic blood pressure 117 mm[Hg] LEXY DURESKA DO [facility] 01-11-2022 09:27-0400 Body height 149.9 cm Patricia King MD Work Phone: [facility] 01-11-2022 09:27-0400 Body weight 62.55 kg Patricia King MD Work Phone: [facility] 01-11-2022 09:27-0400 Diastolic blood pressure 68 mm[Hg] Patricia King MD Work Phone: [facility] 01-11-2022 09:27-0400 Heart rate 78 /min Patricia King MD Work Phone: [facility] 01-11-2022 09:27-0400 Systolic blood pressure 110 mm[Hg] Patricia King MD Work Phone: [facility] Encounters Encounter Date Encounter Type Care Provider Facility Start: 03-18-2025 End: 03-21-2025 Telephone encounter Kishor Hernandez MD Work Phone: Internal Medicine [place] Comment on above: Patient Question Start: 02-04-2025 ambulatory JOSE DELGADO Facility :[facility] Start: 02-04-2025 End: 02-04-2025 Subsequent hospital visit by physician [facility] Work Phone: Nuclear Medicine Comment on above: Dyspepsia [R10.13] Start: 01-24-2025 End: 01-24-2025 Telemedicine consultation with patient Jose Delgado APRN.AUTO HEADLIGHT MECHANIC [facility] Start: 01-24-2025 End: 01-24-2025 ambulatory Jose Delgado APRN.AUTO HEADLIGHT MECHANIC Work Phone: G[facility] [place] Comment on above: Gastroesophageal ref lux disease with esophagitis without hemorrhage (Primary Dx); Early satiety; Dyspepsia; Hiatal hernia; Globus pharyngeus Start: 12-06-2024 End: 12-06-2024 Emergency department patient visit Kishor Hernandez Facility:[facility] Start: 12-02-2024 End: 12-02-2024 ambulatory Omayra Garcia RN [facility] Comment on above: Question Start: 11-30-2024 End: 11-30-2024 Refill Jose Delgado APRN.AUTO HEADLIGHT MECHANIC Work Phone: Ambulatory Surgery Comment on above: Medication Problem; Refill Request Start: 11-04-2024 End: 11-05-2024 Refill Darya Quiñones APRN.AUTO HEADLIGHT MECHANIC Work Phone: Internal Medicine [place] Comment on above: Refill Request Start: 10-27-2024 End: 10-27-2024 ambulatory [facility] Facility:[facility] Start: 10-27-2024 End: 10-27-2024 Office outpatient visit 25 minutes Amirah Rivera PA-C Work Phone: [facility] Comment on above: Viral illness (Prima ry Dx) Start: 10-19-2024 End: 10-19-2024 Emergency department patient visit [facility] Facility:[facility] Start: 10-13-2024 End: 10-13-2024 ambulatory [facility] Facility:[facility] Start: 10-13-2024 End: 10-13-2024 Patient encounter procedure Abel Thornton APRN.AUTO HEADLIGHT MECHANIC Work Phone: [facility] Comment on above: Pain (Primary Dx) Start: 10-13-2024 End: 10-13-2024 Subsequent hospital visit by physician [facility] Work Phone: Radiology Comment on above: Pain [R52] Start: 10-07-2024 End: 10-07-2024 Refill Reanna Bronson PA-C Work Phone: [facility] Comment on above: Refill Request Start: 09-27-2024 End: 09-27-2024 ambulatory [facility] Comment on above: New medication Start: 09-23-2024 End: 09-23-2024 ambulatory JOSE DELGADO Facility:[facility] Start: 09-23-2024 End: 09-23-2024 Office outpatient visit 15 minutes Jose Delgado RECORDS MANAGEMENT ENGINEER.AUTO HEADLIGHT MECHANIC Work Phone: [facility] Comment on above: Gastroesophageal ref lux disease with esophagitis without hemorrhage (Primary Dx); Hiatal hernia Start: 09-13-2024 End: 09-13-2024 Refill Jose Delgado RECORDS MANAGEMENT ENGINEER.AUTO HEADLIGHT MECHANIC Work Phone: [facility] Comment on above: Refill Request Start: 08-24-2024 End: 08-24-2024 Refill Jose Delgado RECORDS MANAGEMENT ENGINEER.AUTO HEADLIGHT MECHANIC Work Phone: [facility] Comment on above: Refill Request Start: 08-03-2024 End: 08-03-2024 ambulatory EDGARDO RAMIREZ Facility:[facility] Start: 08-03-2024 End: 08-03-2024 Subsequent hospital visit by physician Edgardo Ramirez MD Work Phone: Ambulatory Surgery Comment on above: Gastroesophageal ref lux disease, unspecified whether esophagitis present [K21.9] Start: 07-29-2024 End: 07-29-2024 ambulatory JOSE DELGADO Facility:[facility] Start: 07-29-2024 End: 07-29-2024 Office outpatient new 30 minutes Jose Delgado RECORDS MANAGEMENT ENGINEER.AUTO HEADLIGHT MECHANIC [facility] Comment on above: Gastroesophageal ref lux disease, unspecified whether esophagitis present; Upper abdominal pain Start: 06-15-2024 End: 06-15-2024 Periodic preventive med est patient 18-39 yrs Kishor Hernandez MD Work Phone: Internal Medicine [place] Comment on above: Annual physical exam (Primary Dx) Start: 06-15-2024 End: 06-15-2024 ambulatory KISHOR HERNANDEZ Facility:[facility] Start: 06-15-2024 End: 06-15-2024 Patient encounter procedure Kishor Hernandez MD Work Phone: [facility] Work Phone: Start: 06-10-2024 End: 06-10-2024 [facility] Facility:[facility] Start: 06-09-2024 End: 06-09-2024 Patient encounter procedure Darya Quiñones RECORDS MANAGEMENT ENGINEER.AUTO HEADLIGHT MECHANIC Work Phone: [facility] Medicine [place] Comment on above: Gastroesophageal ref lux disease, unspecified whether esophagitis present (Primary Dx); Upper abdominal pain; Sternal pain; Palpitations Start: 06-09-2024 End: 06-09-2024 [facility] Facility:[facility] Start: 05-27-2024 End: 05-31-2024 Telephone encounter Darya Quiñones RECORDS MANAGEMENT ENGINEER.AUTO HEADLIGHT MECHANIC Work Phone: Internal Medicine [place] Comment on above: Appeal Start: 05-19-2024 ambulatory HILLARY CHANCE MD Facil ity:B Start: 05-01-2024 End: 05-01-2024 [facility] Facility:[facility] Start: 05-01-2024 End: 05-01-2024 Patient encounter procedure Agustina Sparks PA Work Phone: [facility] Comment on above: Local reaction to be e sting, accidental or unintentional, initial encounter (Primary Dx) Start: 04-30-2024 End: 04-30-2024 [facility] Facility:[facility] Start: 04-30-2024 End: 04-30-2024 Patient encounter procedure Abel Thornton APRN.AUTO HEADLIGHT MECHANIC Work Phone: [facility] Comment on above: Itch (Primary Dx) Start: 04-28-2024 End: 04-28-2024 [facility] DRAYA QUIÑONES [facility] Start: 04-28-2024 End: 04-28-2024 Patient encounter procedure Darya Quiñones APRN.AUTO HEADLIGHT MECHANIC Work Phone: Internal Medicine [place] Comment on above: Sternal pain (Primar y Dx); Palpitations; Family history of early CAD; Gastroesophageal reflux disease, unspecified whether esophagitis present Start: 04-02-2024 [facility] Facility:[facility] Start: 03-30-2024 Telephone encounter Abelino díaz MD Work Phone: OB/Gynecology Comment on above: FMLA paperwork addit ion info Start: 03-17-2024 Refill Darya Quiñones APRN .AUTO HEADLIGHT MECHANIC Work Phone: Internal Medicine [place] Comment on above: Refill Request Start: 03-12-2024 End: 03-12-2024 Patient encounter procedure Abelino Kessler MD Work Phone: OB/Gynecology Comment on above: care and examination (Primary Dx); Request for sterilization Start: 02-24-2024 Admission to [facility] Abelino Kessler MD Work Phone: OB/Gynecology Comment on above: surgery confirmation Start: 02-24-2024 E-mail encounter fro m caregiver Abelino Kessler MD Work Phone: OB/Gynecology Start: 02-16-2024 End: 02-16-2024 Patient encounter procedure Abelino Kessler MD Work Phone: OB/Gynecology Comment on above: state (Pr imary Dx); History of gestational diabetes Start: 02-06-2024 End: 02-06-2024 Patient encounter procedure Manuela Duckworth MD Work Phone: OB/Gynecology Comment on above: Retained placenta wi thout hemorrhage, condition or complication (Primary Dx); endometritis Start: 02-06-2024 ambulatory Manuela Duckworth MD Work Phone: OB/Gynecology Start: 02-06-2024 End: 02-06-2024 Patient encounter procedure Sarina Montoya RECORDS MANAGEMENT ENGINEER.CNM Work Phone: OB/Gynecology Comment on above: Retained placenta wi thout hemorrhage, condition or complication (Primary Dx) Start: 02-03-2024 ambulatory Shusanjeev Reeves RECORDS MANAGEMENT ENGINEER.CNM Work Phone: OB/Gynecology Comment on above: Ob Delivery Note Start: 02-02-2024 End: 02-04-2024 Evaluation and management of inpatient [facility] [place] Work Phone: Start: 01-30-2024 End: 01-30-2024 Patient encounter procedure Auto Glass Technician [facility] Work Phone: OB/Gynecology Comment on above: Encounter for ultras ound to check growth (Primary Dx); Diet controlled gestational diabetes mellitus (GDM) in third trimester; 38 weeks gestation of Supervision of high risk in third trimester (Primary Dx); Diet controlled gestational diabetes mellitus (GDM) in third trimester; 38 weeks gestation of Start: 01-28-2024 ambulatory [facility] Start: 01-28-2024 Patient encounter procedure [facility] Comment on above: Population Health Na vigation Outreach (OB/PEDS ) Start: 01-19-2024 End: 01-19-2024 Patient encounter procedure Abelino Kessler MD Work Phone: OB/Gynecology Comment on above: 36 weeks gestation o f (Primary Dx); Diet controlled gestational diabetes mellitus (GDM) in third trimester; Encounter for supervision of other normal in second trimester Start: 01-12-2024 End: 01-12-2024 Patient encounter procedure Abelino Kessler MD Work Phone: OB/Gynecology Comment on above: 35 weeks gestation o f (Primary Dx); Diet controlled gestational diabetes mellitus (GDM) in third trimester; Encounter for supervision of other normal in second trimester; 27 weeks gestation of ; Heartburn during , antepartum Start: 12-30-2023 Telephone encounter Shu gill APRN.CNM Work Phone: OB/Gynecology Comment on above: FMLA Paperwork Start: 12-17-2023 End: 12-17-[address] Nutrition Therapy Comment on above: Diet controlled gest ational diabetes mellitus (GDM) in third trimester (Primary Dx); Dietary counseling Start: 12-17-2023 End: 12-17-2023 Telemedicine consultation with patient Hayley Parr RD [facility] Start: 12-16-2023 Telephone encounter Shu gill APRN.CNM Work Phone: OB/Gynecology Comment on above: FMLA Paperwork Start: 12-15-2023 End: 12-15-2023 Patient encounter procedure Abelino Kessler MD Work Phone: OB/Gynecology Comment on above: 31 weeks gestation o f (Primary Dx); Diet controlled gestational diabetes mellitus (GDM) in third trimester; Supervision of other high risk pregnancies, first trimester Start: 12-13-2023 End: 12-14-2023 Emergency department patient visit [facility] Work Phone: Start: 12-11-2023 ambulatory Shu Reeves APRN.CNM Work Phone: OB/Gynecology Comment on above: Blood Sugar tracking . Start: 12-10-2023 End: 12-10-2023 Patient encounter procedure Auto Glass Technician [facility] Work Phone: OB/Gynecology Comment on above: Diet controlled gest ational diabetes mellitus (GDM) in third trimester (Primary Dx); 31 weeks gestation of Start: 12-05-2023 Refill Daly pepe PA-C Work Phone: Internal Medicine [place] Comment on above: Refill Request Start: 12-02-2023 Telephone encounter Heading 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 RN Maternal Medicine Comment on above: Heading 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 - O ther (PRAF) Start: 12-01-2023 End: 12-01-2023 Patient encounter procedure Shu Reeves APRN.CNJim Work Phone: OB/Gynecology Comment on above: 29 weeks gestation o f (Primary Dx); Abnormal glucose in , antepartum; Situational depression; Supervision of other high risk pregnancies, first trimester Start: 12-01-2023 ambulatory Shu Reeves APRN.MARINO Work Phone: OB/Gynecology Comment on above: FMLA Start: 12-01-2023 E-mail encounter fro m caregiver Shu Reeves APRN.MARINO Work Phone: [facility] Start: 11-24-2023 End: 11-24-[address] Nutrition Therapy Comment on above: Dietary counseling ( Primary Dx); Abnormal maternal glucose tolerance, antepartum Start: 11-24-2023 End: 11-24-2023 Telemedicine consultation with patient Hayley Parr RD [facility] Start: 11-19-2023 End: 11-19-2023 Refill Manuela Duckworth MD Work Phone: OB/Gynecology Comment on above: Abnormal maternal gl ucose tolerance, antepartum Start: 11-18-2023 Telephone encounter Manuela Duckworth MD Work Phone: OB/Gynecology Comment on above: Results Start: 11-17-2023 End: 11-17-2023 Patient encounter procedure Abelino Kessler MD Work Phone: OB/Gynecology Comment on above: Encounter for superv ision of other normal in second trimester (Primary Dx); 27 weeks gestation of ; Heartburn during , antepartum; Request for sterilization Start: 11-11-2023 End: 11-11-2023 Patient encounter procedure Zuleyma Castro APRN.AUTO HEADLIGHT MECHANIC Work Phone: [facility] Comment on above: Fatigue, unspecified type (Primary Dx); Headache, unspecified headache type Start: 09-24-2023 End: 09-24-2023 Patient encounter procedure Zuleyma Castro APRN.AUTO HEADLIGHT MECHANIC Work Phone: [facility] Comment on above: Sciatica, right side (Primary Dx) Start: 09-06-2023 Refill Liss Lio RECORDS MANAGEMENT ENGINEER.AUTO HEADLIGHT MECHANIC Work Phone: Internal Medicine [place] Comment on above: Refill Request Start: 09-03-2023 End: 09-03-2023 Patient encounter procedure Shu Reeves APRN.CNM Work Phone: OB/Gynecology Comment on above: 17 weeks gestation o f (Primary Dx); Encounter for supervision of other normal in second trimester Start: 08-07-2023 End: 08-07-2023 Emergency department patient visit [facility] Work Phone: Start: 08-04-2023 End: 08-04-2023 Patient encounter procedure Abelino Kessler MD Work Phone: OB/Gynecology Comment on above: 12 weeks gestation o f (Primary Dx); Encounter for supervision of normal in multigravida in first trimester; Constipation, unspecified constipation type Start: 07-29-2023 Telephone encounter Dakota stein MD Work Phone: OB/Gynecology Comment on above: Question (OB Questio n) Start: 07-15-2023 Telephone encounter Heading 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 RN Obstetrics/Gynecology Comment on above: Heading 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 - O ther ( Risk Assessment Form) Start: 07-11-2023 End: 07-11-2023 Patient encounter procedure Shu Reeves APRN.CNM Work Phone: OB/Gynecology Comment on above: with uncer tain dates in first trimester (Primary Dx); 9 weeks gestation of ; Encounter for supervision of normal in multigravida in first trimester 9 weeks gestation of (Primary Dx); Encounter for supervision of normal in multigravida in first trimester; Screening for cervical cancer Start: 06-25-2023 End: 06-25-2023 Patient encounter procedure Abel Thornton RECORDS MANAGEMENT ENGINEER.AUTO HEADLIGHT MECHANIC Work Phone: [facility] Comment on above: URI, acute (Primary Dx) Start: 06-06-2023 End: 06-06-2023 Patient encounter procedure Chandler Burton MD Work Phone: [facility] Comment on above: Positive urine pregn rhea test (Primary Dx) Start: 06-04-2023 End: 06-04-2023 Subsequent hospital visit by physician [facility] Work Phone: Radiology Comment on above: Breast pain [N64.4] Start: 05-29-2023 Telephone encounter Chandler Garcia MD Work Phone: [facility] Comment on above: Results (BV) Start: 05-28-2023 End: 05-28-2023 Patient encounter procedure Shu Hackett RECORDS MANAGEMENT ENGINEER.AUTO HEADLIGHT MECHANIC Work Phone: [facility] Comment on above: Pelvic pain (Primary Dx) Start: 05-21-2023 Telephone encounter Liss cat RECORDS MANAGEMENT ENGINEER.AUTO HEADLIGHT MECHANIC Work Phone: Mammogram Comment on above: Orders Start: 05-13-2023 End: 05-13-2023 Patient encounter procedure Liss Vaca RECORDS MANAGEMENT ENGINEER.AUTO HEADLIGHT MECHANIC Work Phone: Internal Medicine [place] Comment on above: Breast pain (Primary Dx); Anxiety; Panic attacks; Other fatigue; Vitamin D deficiency; Encounter for therapeutic drug monitoring Start: 04-02-2023 End: 04-02-2023 Patient encounter procedure Liss Vaca RECORDS MANAGEMENT ENGINEER.AUTO HEADLIGHT MECHANIC Work Phone: [facility] [place] Comment on above: Panic attack (Primar y Dx) Start: 01-22-2023 End: 01-22-2023 Patient encounter procedure Kishor Hernandez MD Work Phone: [facility] [place] Comment on above: Patient left without being seen (Primary Dx) Start: 01-22-2023 ambulatory KISHOR HERNANDEZ Facility:[facility] Start: 01-22-2023 Telephone encounter Hai Miguel nye PA-C Work Phone: [facility] Comment on above: Results Returning Patient's Call; Orders Start: 01-22-2023 End: 01-22-2023 ambulatory [facility] Work Phone: Start: 01-22-2023 End: 01-22-2023 Patient encounter procedure [facility], Specimen Start: 11-01-2022 End: 11-01-2022 Patient encounter procedure Anthony Patterson RECORDS MANAGEMENT ENGINEER.AUTO HEADLIGHT MECHANIC Work Phone: [facility] Comment on above: Irregular menses (Pr imary Dx); Chest pain, unspecified type Start: 09-18-2022 End: 09-18-2022 Patient encounter procedure Darya Quiñones APRN.AUTO HEADLIGHT MECHANIC Work Phone: [facility] [place] Comment on above: Anxiety and depressi on (Primary Dx); Dizziness; Numbness and tingling Start: 09-09-2022 End: 09-09-2022 Patient encounter procedure Shaun Shelton RECORDS MANAGEMENT ENGINEER.AUTO HEADLIGHT MECHANIC Work Phone: [facility] Comment on above: URI, acute (Primary Dx) Start: 06-19-2022 End: 06-19-2022 Patient encounter procedure Kishor Hernandez MD Work Phone: [facility] [place] Comment on above: Anxiety and depressi on (Primary Dx); Attention deficit; Panic attacks Start: 06-05-2022 Refill Kishor Godinez Work Phone: [facility] [place] Comment on above: Refill Request Start: 05-31-2022 Refill Kishor Godinez Work Phone: [facility] [place] Comment on above: Refill Request Start: 05-09-2022 End: 05-09-2022 Emergency department patient visit LEXY ZAMUDIO DO [facility] Start: 04-21-2022 Refill Darya Quiñones APRN .AUTO HEADLIGHT MECHANIC Work Phone: [facility] [place] Comment on above: Refill Request Start: 03-22-2022 End: 03-22-2022 [facility] Kenneth Saldaña PhD Work Phone: Pediatric Psychology Comment on above: Attention deficit hy peractivity disorder (ADHD), unspecified ADHD type (Primary Dx); Major depressive disorder, recurrent episode, in partial remission with anxious distress (HCC) Start: 01-11-2022 End: 01-11-2022 Patient encounter procedure Patricia King MD Work Phone: Spine Medicine Comment on above: Thoracic back pain, unspecified back pain laterality, unspecified chronicity (Primary Dx) Start: 12-01-2020 End: 12-01-2020 Subsequent hospital visit by physician Xr [facility] [place] Work Phone: Radiology Comment on above: Acute left ankle sandy n [M25.572] Procedures Date Procedure Procedure Detail Performing Clinician Start: 02-04-2025 Gastric emptying imaging study Jose Delgado APRN.AUTO HEADLIGHT MECHANIC Work Phone: Start: 10-27-2024 STREP A MOLECULAR (POC) Amirah Arana Work Phone: Start: 10-13-2024 Radex foot complete minimum 3 views Bibiana Thornton APRN.AUTO HEADLIGHT MECHANIC Work Phone: Start: 08-03-2024 Esophagogastroduodenoscopy transoral diagnostic Jose Delgado APRN.AUTO HEADLIGHT MECHANIC Work Phone: Start: 02-16-2024 Urnls dip stick/tablet rgnt auto w/o microscopy Abelino Kessler MD Work Phone: Start: 01-30-2024 Us preg uterus after 1st trimest 10/06 gestation Gill Kim APRN.AUTO HEADLIGHT MECHANIC Work Phone: Start: 01-19-2024 URINE OB DIP B/O Abelino Kessler MD Work Phone: Start: 01-12-2024 URINE OB DIP B/O Abelino Kessler MD Work Phone: Start: 12-15-2023 URINE OB DIP B/O Abelino Kessler MD Work Phone: Start: 12-13-2023 Plain chest X-ray Start: 12-10-2023 Us preg uterus after 1st trimest 1 gestation Shu Reeves APRN.CNM Work Phone: Start: 12-01-2023 URINE OB DIP B/O Shu Reeves APRN.CNM Work Phone: Start: 11-17-2023 URINE OB DIP B/O Abelino Kessler MD Work Phone: Start: 09-03-2023 URINE OB DIP B/O Shu Reeves APRN.CNM Work Phone: Start: 08-07-2023 SARS-CoV-2 & FLU Antigen (Rapid) Start: 08-04-2023 URINE OB DIP B/O Abelino Kessler MD Work Phone: Start: 07-11-2023 BACTERIAL VAGINOSIS NAAT Shu Reeves APRN.CNM Work Phone: Start: 07-11-2023 Cytp cervical/vaginal req interp physician Shu Reeves APRN.CNM Work Phone: Start: 07-11-2023 [facility] human papillomavirus high-risk types Shu Reeves APRN.CNM Work Phone: Start: 07-11-2023 [facility] chlamydia trachomatis amplified probe tq Shu Reeves APRN.CNM Work Phone: Start: 07-11-2023 Us uterus limited 1/> fetuses Shu Reeves APRN.CNM Work Phone: Start: 06-06-2023 Urine test visual color cmprsn karla Burton MD Work Phone: Start: 05-28-2023 Urnls dip stick/tablet rgnt auto w/o microscopy [facility] Provider Start: 11-01-2022 Urine test visual color cmprsn karla Patterson APRN.AUTO HEADLIGHT MECHANIC Work Phone: Plan of Treatment Date Care Activity Detail Author Start: 07-11-2028 HPV Testing HPV Testing [facility] Start: 07-11-2028 Pap Testing Pap Testing [facility] Start: 07-11-2028 Screening for malignant neoplasm of cervix [facility] Start: 04-19-2026 Urine microalbumin profile [facility] Start: 10-24-2025 HPV TESTING HPV TESTING [facility] Start: 10-24-2025 PAP TESTING PAP TESTING [facility] Start: 06-06-2025 Influenza vaccination Influenza Vaccine (Season Ended) [facility] Start: 04-20-2025 End: 04-20-2025 Patient encounter procedure 04/20/2025 3:20 PM EDT Office Visit OB/Gynecology [address] [place], [place] [id number] Manuela Colbert MD [address] [place] [address] Sterilization OB/Gynecology Comment on above: Sterilization Start: 02-04-2025 End: 02-04-2025 Patient encounter procedure 02/04/2025 8:00 AM EDT Appointment Nuclear Medicine [address] [place], [place] [id number] Dyspepsia [R10.13] Nuclear Medicine Comment on above: Dyspepsia [R10.13] Start: 12-23-2024 End: 12-23-2024 Patient encounter procedure 12/23/2024 1:50 PM EDT Office Visit [facility] [address] [place] [phone] Jose Delgado, RECORDS MANAGEMENT ENGINEER.AUTO HEADLIGHT MECHANIC [address] [place] [address] 3 month follow up for gerd [facility] Comment on above: 3 month follow up for gerd Start: 09-23-2024 End: 09-23-2024 Patient encounter procedure 09/23/2024 8:25 AM EST Office Visit [facility] [address] [place] [phone] Jose Delgado, RECORDS MANAGEMENT ENGINEER.AUTO HEADLIGHT MECHANIC [address] [facility] [place] [place] [phone] follow up after EGD [facility] Comment on above: follow up after EGD Start: 08-03-2024 End: 08-03-2024 Patient encounter procedure 08/03/2024 1:30 PM EDT Appointment Ambulatory Surgery [address] [place] [phone] Gastroesophageal reflux disease, unspecified whether esophagitis present [K21.9] Ambulatory Surgery Comment on above: Gastroesophageal reflux disease, unspeci fied whether esophagitis present [K21.9] Start: 07-29-2024 End: 07-29-2024 Anesthesia consultation 07/29/2024 11:59 PM EDT Anesthesia Event Ambulatory Surgery [address] [place] [phone] Ximena Mejia, RECORDS MANAGEMENT ENGINEER.[employer] [address] [place], [place] [phone] Ambulatory Surgery Start: 07-29-2024 End: 07-29-2024 Patient encounter procedure 07/29/2024 3:05 PM EDT Office Visit [facility] [address] [place] [phone] Jose Delgado, RECORDS MANAGEMENT ENGINEER.AUTO HEADLIGHT MECHANIC [address] [place], [place] [phone] Gastroesophageal reflux disease, unspecified whether esophagitis present [K21.9]; Upper abdominal pain [R10.10] [facility] Comment on above: Gastroesophageal reflux disease, unspeci fied whether esophagitis present [K21.9]; Upper abdominal pain [R10.10] Start: 07-11-2024 Screening for malignant neoplasm of cervix Cervical Cancer Screening [facility] Start: 06-09-2024 End: 06-09-2024 Patient encounter procedure 06/09/2024 4:40 PM EDT Office Visit Internal Medicine [facility] [address] [place] [address] Darya Quiñones APRN.AUTO HEADLIGHT MECHANIC [address] [place], [place] [phone] 6 week follow up [facility] [place] Comment on above: 6 week follow up Start: 06-09-2024 End: 09-08-2024 Helicobacter pylori IgG Ab [Presence] in Serum or Plasma by Immunoassay H PYLORI IGG AB Lab Routine Gastroesophageal reflux disease, unspecified whether esophagitis present Upper abdominal pain Expected: 06/09/2024, Expires: 09/08/2024 [facility] Work Phone: Comment on above: Expected: 06/09/2024, Expires: Start: 06-06-2024 Covid-19 Vaccine () Covid-19 Vaccine () [facility] Start: 06-06-2024 Covid-19 Vaccine () Covid-19 Vaccine () [facility] Start: 06-06-2024 Influenza vaccination [facility] Start: 05-13-2024 COVID-19 VACCINE (#1) COVID-19 VACCINE (#1) [facility] Comment on above: Postponed from 1992 (Declined at t his time) Start: 05-07-2024 End: 05-07-2024 Patient encounter procedure 05/07/2024 2:40 PM EDT Office Visit Cardiology [address] [place] [address] Sternal pain [R07.89] Cardiology Comment on above: Sternal pain [R07.89] Start: 04-28-2024 End: 04-28-2024 Patient encounter procedure 04/28/2024 3:40 PM EDT Office Visit [facility] [address] [place], [place] [phone] Darya Quiñones APRN.AUTO HEADLIGHT MECHANIC [address] [place] [address] physical [facility] Medicine [place] Comment on above: physical Start: 04-28-2024 End: 07-28-2024 CBC W Auto Differential panel - Blood [facility] Comment on above: Expected: 04/28/2024, Expires: Start: 04-28-2024 End: 07-28-2024 Comprehensive metabolic 2000 panel - Serum or Plasma [facility] Comment on above: Expected: 04/28/2024, Expires: Start: 04-28-2024 End: 07-28-2024 Magnesium [Mass/volume] in Serum or Plasma [facility] Comment on above: Expected: 04/28/2024, Expires: Start: 04-28-2024 End: 07-28-2024 Thyrotropin [Units/volume] in Serum or Plasma [facility] Comment on above: Expected: 04/28/2024, Expires: Start: 03-25-2024 End: 03-25-2024 Patient encounter procedure 03/25/2024 3:40 PM EDT Office Visit OB/Gynecology [address] [place] [address] Odalis Stapleton MD [address] [place] [address] Colposcopy OB/Gynecology Comment on above: Colposcopy Start: 03-17-2024 End: 03-17-2024 Patient encounter procedure 03/17/2024 3:20 PM EDT Office Visit OB/Gynecology [address] [place] [address] Odalis Stapleton MD [address] [place] [address] Colposcopy OB/Gynecology Comment on above: Colposcopy Start: 03-12-2024 End: 03-12-2024 Patient encounter procedure 03/12/2024 3:10 PM EDT Office Visit OB/Gynecology [address] [place] [address] Abelino Kessler MD [address] [place] [address] Post and Pre op OB/Gynecology Comment on above: Post and Pre op Start: 02-16-2024 End: 05-17-2024 GLUC EVELYN, 2-HR NON-GEST, 75 GM, FASTING GLUC EVELYN, 2-HR NON-GEST, 75 GM, FASTING Lab Routine History of gestational diabetes state Expected: 02/16/2024, Expires: 05/17/2024 [facility] Work Phone: Comment on above: Expected: 02/16/2024, Expires: Start: 02-16-2024 End: 02-16-2024 Patient encounter procedure 02/16/2024 2:00 PM EDT Office Visit OB/Gynecology [address] [place] [address] Abelino Kessler MD [address] [place] [address] PP LEANDER del. 02/02 2wk OB/Gynecology Comment on above: PP LEANDER del. 02/02 2wk Start: 02-04-2024 Patient discharge [facility] Start: 02-03-2024 End: 02-03-2024 Patient encounter procedure 02/03/2024 11:10 AM EDT Routine Office Visit OB/Gynecology [address] [place] [address] Dakota Thornton MD [address] [place] [address] OB OB/Gynecology Comment on above: OB Start: 02-03-2024 Documentation procedure [facility] Start: 02-03-2024 Administration of medication [facility] Start: 02-03-2024 Application of ice collar, cap or bag [facility] Start: 02-03-2024 Catheterization of vein [facility] Start: 02-03-2024 Introduction of urinary catheter [facility] Start: 02-03-2024 Measuring intake and output [facility] Start: 02-03-2024 Notification of physician [facility] Start: 02-03-2024 Procedure discontinued [facility] Start: 02-03-2024 Provision of activity privileges [facility] Start: 02-03-2024 Vital signs measurements [facility] Start: 02-03-2024 End: 02-03-2024 [facility] Start: 02-03-2024 Consultation [facility] Start: 02-02-2024 Admission procedure [facility] Start: 02-02-2024 Consultation [facility] Start: 01-30-2024 End: 01-30-2024 Patient encounter procedure OB/Gynecology Comment on above: Growth/ OB Ob Start: 12-15-2023 End: 12-14-2024 OBSTETRIC ULTRASOUND [facility] OBSTETRIC ULTRASOUND [facility] Anc Imaging Routine 31 weeks gestation of Diet controlled gestational diabetes mellitus (GDM) in third trimester Supervision of other high risk pregnancies, first trimester Expected: 12/15/2023, Expires: 12/14/2024 [facility] Work Phone: Comment on above: Expected: 12/15/2023, Expires: Start: 12-14-2023 End: 12-14-2023 [facility] Start: 12-13-2023 [facility] Start: 12-01-2023 End: 12-01-2024 OBSTETRIC ULTRASOUND [facility] OBSTETRIC ULTRASOUND [facility] Anc Imaging Routine 29 weeks gestation of Expected: 12/01/2023, Expires: 12/01/2024 [facility] Work Phone: Comment on above: Expected: 12/01/2023, Expires: Start: 10-24-2023 PAP TESTING PAP TESTING [facility] Start: 08-07-2023 [facility] Start: 08-04-2023 End: 11-03-2023 Chromosome 21 trisomy [Presence] in Blood or Tissue by Cytogenetics [facility] Work Phone: Comment on above: Expected: 08/04/2023, Expires: Start: 07-11-2023 End: 07-11-2024 NUCHAL TRANSLUCENCY [facility] NUCHAL TRANSLUCENCY [facility] Anc Imaging Routine 9 weeks gestation of Encounter for supervision of normal in multigravida in first trimester Expected: 07/11/2023, Expires: 07/11/2024 [facility] Work Phone: Comment on above: Expected: 07/11/2023, Expires: 4 Start: 07-11-2023 End: 07-11-2024 OBSTETRIC ULTRASOUND [facility] OBSTETRIC ULTRASOUND [facility] Anc Imaging Routine 9 weeks gestation of Encounter for supervision of normal in multigravida in first trimester Expected: 07/11/2023, Expires: 07/11/2024 [facility] Work Phone: Comment on above: Expected: 07/11/2023, Expires: 4 Start: 06-25-2023 End: 07-09-2023 COVID & INFLUENZA A/B & RSV NAAT, ROUTINE [facility] Work Phone: Comment on above: Expected: 06/25/2023, Expires: 3 Start: 06-06-2023 Covid-19 Vaccine ( season) Covid-19 Vaccine () [facility] Start: 06-06-2023 Influenza vaccination [facility] Start: 05-14-2023 End: 07-14-2023 25-hydroxyvitamin D3 [Mass/volume] in Serum or Plasma VITAMIN D 25 HYDROXY Lab Routine Vitamin D deficiency Expected: 05/14/2023, Expires: 07/14/2023 [facility] Work Phone: Comment on above: Expected: 05/14/2023, Expires: 3 Start: 05-14-2023 End: 07-14-2023 Cobalamin (Vitamin B12) [Mass/volume] in Serum or Plasma VITAMIN B12 BLOOD Lab Routine Other fatigue Expected: 05/14/2023, Expires: 07/14/2023 [facility] Work Phone: Comment on above: Expected: 05/14/2023, Expires: 3 Start: 05-14-2023 End: 07-14-2023 Comprehensive metabolic 2000 panel - Serum or Plasma COMP METABOLIC PANEL Lab Routine Anxiety Panic attacks Other fatigue Encounter for therapeutic drug monitoring Expected: 05/14/2023, Expires: 07/14/2023 [facility] Work Phone: Comment on above: Expected: 05/14/2023, Expires: 3 Start: 05-14-2023 End: 07-14-2023 Thyrotropin [Units/volume] in Serum or Plasma TSH BLD Lab Routine Anxiety Panic attacks Other fatigue Expected: 05/14/2023, Expires: 07/14/2023 [facility] Work Phone: Comment on above: Expected: 05/14/2023, Expires: 3 Start: 04-04-2023 Influenza vaccination INFLUENZA (#1) [facility] Comment on above: Postponed from 06/06/2022 (Declined at t his time) Start: 06-06-2022 Influenza vaccination [facility] Start: 05-24-2022 ONE PNEUMOVAX PRIOR TO AGE 65 ONE PNEUMOVAX PRIOR TO AGE 65 [facility] Comment on above: Postponed from 2011 (Declined at t his time) Start: 01-11-2022 End: 03-13-2022 Erythrocyte sedimentation rate [facility] Work Phone: Comment on above: Expected: 01/11/2022, Expires: 2 Start: 2011 Hepatitis B Vaccine (1 of 3 - 19+ 3-dose series) Hepatitis B Vaccine (1 of 3 - 19+ 3-dose series) [facility] Start: 1997 COVID-19 VACCINE (#1) COVID-19 VACCINE (#1) [facility] Start: 1997 COVID-19 VACCINE (1) COVID-19 VACCINE (1) [facility] Start: 1992 COVID-19 VACCINE (#1) COVID-19 VACCINE (#1) [facility] Start: 1992 HEPATITIS B (1 of 3 - 3-dose series) HEPATITIS B (1 of 3 - 3-dose series) [facility] Start: 1992 Hepatitis B Vaccine (1 of 3 - 3-dose series) Hepatitis B Vaccine (1 of 3 - 3-dose series) [facility] 25-hydroxyvitamin D3 [Mass/volume] in Serum or Plasma VITAMIN D 25 HYDROXY Lab Routine Vitamin D deficiency 05/13/2023 4:36 PM EDT [facility] Work Phone: BACTERIAL VAGINOSIS NAAT BACTERI AL VAGINOSIS NAAT Lab Routine Pelvic pain 05/28/2023 11:04 AM EDT [facility] Work Phone: BOGDAN/TRICHOMONAS NAAT BOGDAN /TRICHOMONAS NAAT Lab Routine Pelvic pain 05/28/2023 11:04 AM EDT [facility] Work Phone: Chlamydia trachomatis+Neisseria gonorrhoeae DNA [Presence] in Unspecified specimen by FARRAH with probe detection GONORRHEA/CHLAMYDIA NAAT Lab STAT Pelvic pain 05/28/2023 11:04 AM EDT [facility] Work Phone: Cobalamin (Vitamin B 12) [Mass/volume] in Serum or Plasma VITAMIN B12 BLOOD Lab Routine Other fatigue 05/13/2023 4:36 PM EDT [facility] Work Phone: Comprehensive metabo lic 2000 panel - Serum or Plasma COMP METABOLIC PANEL Lab Routine Anxiety Panic attacks Other fatigue Encounter for therapeutic drug monitoring 05/13/2023 4:36 PM EDT [facility] Work Phone: ECG COMPLETE ECG COMPLETE ECG Routine Sternal pain Palpitations Family history of early CAD Ordered: 04/28/2024 [facility] Comment on above: Ordered: 04/28/2024 End: 04-28-2025 Echocardiography ECHO Cardiology Routine Sternal pain Palpitations Family history of early CAD 1 Occurrences starting 04/28/2024 until 04/28/2025 [facility] Work Phone: Comment on above: 1 Occurrences starting 04/28/2024 until 04/28/2025 End: 07-29-2025 EGD DIAGNOSTIC EGD DIAGNOSTIC Endoscopy Routine Gastroesophageal reflux disease, unspecified whether esophagitis present Upper abdominal pain 1 Occurrences starting 07/29/2024 until 07/29/2025 [facility] Work Phone: Comment on above: 1 Occurrences starting 07/29/2024 until 07/29/2025 Influenza virus A an d B RNA and SARS-CoV-2 (COVID-19) N gene panel - Respiratory specimen by FARRAH with probe detection COVID WITH FLUA+B, ROUTINE Microbiology Routine URI, acute 09/09/2022 11:35 AM EST [facility] Work Phone: End: 06-19-2024 STEVE DIAGNOSTIC BILATERAL STEVE DIAGNOSTIC BILATERAL Radiology Routine Breast pain 1 Occurrences starting 05/21/2023 until 06/19/2024 [facility] Work Phone: Comment on above: 1 Occurrences starting 05/21/2023 until 06/19/2024 End: 06-11-2024 STEVE DIAGNOSTIC LEFT STEVE DIAGNOSTIC LEFT Radiology Routine Breast pain 1 Occurrences starting 05/13/2023 until 06/11/2024 [facility] Work Phone: Comment on above: 1 Occurrences starting 05/13/2023 until 06/11/2024 End: 02-23-2026 NM Stomach Views for gastric emptying solid phase W radionuclide PO NM GASTRIC EMPTYING SOLID Radiology Routine Dyspepsia 1 Occurrences starting 01/24/2025 until 02/23/2026 [facility] Work Phone: Comment on above: 1 Occurrences starting 01/24/2025 until 02/23/2026 OUTSIDE VENDOR CARDI AC OUTPATIENT EXTENDED RHYTHM RECORDING (WITHOUT TELEMETRY) OUTSIDE VENDOR CARDIAC OUTPATIENT EXTENDED RHYTHM RECORDING (WITHOUT TELEMETRY) Holter Routine Sternal pain Palpitations Family history of early CAD Ordered: 04/28/2024 [facility] Comment on above: Ordered: 04/28/2024 Patient Education [facility] Work Phone: Patient referral [facility] Work Phone: ROUTINE FLU A/B + RSV ROUTINE FL U A/B + RSV Lab Routine URI, acute 06/25/2023 10:05 AM EDT [facility] Work Phone: ROUTINE, GR OUP B STREP PCR ROUTINE, GROUP B STREP PCR Microbiology Routine 35 weeks gestation of 01/12/2024 8:50 AM EDT [facility] Work Phone: SARS-CoV-2 (COVID-19 ) RNA [Presence] in Respiratory specimen by FARRAH with probe detection COVID NAAT, UPPER RESPIRATORY, ROUTINE Microbiology Routine URI, acute 06/25/2023 10:05 AM EDT [facility] Work Phone: SURGICAL PATHOLOGY SURGICAL PATH OLOGY Lab Routine Retained placenta without hemorrhage, condition or complication endometritis 02/06/2024 3:59 PM EDT [facility] Work Phone: SURGICAL PATHOLOGY [facility] Work Phone: Comment on above: Release Upon Ordering for 1 Occurrences starting 08/03/2024, 1 completed Thyrotropin [Units/volume] in Serum or Plasma TSH BLD Lab Routine Anxiety Panic attacks Other fatigue 05/13/2023 4:36 PM EDT [facility] Work Phone: URINE OB DIP B/O URINE OB DIP B/ O Lab Routine Diet controlled gestational diabetes mellitus (GDM) in third trimester Supervision of high risk in third trimester 38 weeks gestation of Ordered: 01/30/2024 [facility] Work Phone: Comment on above: Ordered: 01/30/2024 End: 06-11-2024 US BREAST LTD LEFT US BREAST LTD LEFT Radiology Routine Breast pain 1 Occurrences starting 05/13/2023 until 06/11/2024 [facility] Work Phone: Comment on above: 1 Occurrences starting 05/13/2023 until 06/11/2024 [facility] Immunizations Immunization Date Immunization Notes Care Provider Eliceo andino 04-19-2016 tetanus toxoid, reduced diphtheria toxoid, and acellular pertussis vaccine, adsorbed Patricia King MD Work Phone: [facility] NEGATED: Highlighted row has not occurred!12-12-2021 COVID-19 vaccine, age 12+ yr (PFIZER-[employer]IONTH[employer]ivision - LUCIO TOP) Patricia King MD Work Phone: [facility] Work Phone: Comment on above: Deferred: OTHER Payers Date Payer Category Payer Unknown [id number] 1 2024 Self-pay [id number] 2022 Medicaid [id number] 2021 Unknown [facility] [employer] COMP [id number] 2021-Present [phone] [facility] [place] [address] [facility] [id number] 2021 Unknown [facility] [facility] [employer] COMP [id number] 2021-Present [phone] [facility] [place] [address] [facility] [id number] 2014 Medicaid [place] [id number] 2014-Present [phone] [place] [id number] Medicaid [id number] 2014 Medicaid [id number] 1992 Unknown [id number] [place] [id number] Unknown [facility] [id number] Unknown [id number] Unknown [id number] Unknown [id number] Unknown [id number] Social History Date Type Detail Facility Start: 08-08-2020 End: 06-15-2024 Tobacco smoking status NHIS Ex-smoker [facility] Work Phone: History of tobacco use Cigarette Smoker C [facility] Work Phone: Start: 08-08-2020 End: 03-18-2023 Cigarettes smoked current (pack per day) - Reported 0.5 [facility] Start: 08-08-2020 End: 06-15-2024 Tobacco use and exposure Smokeless tobacco non-user [facility] Work Phone: Start: 12-01-2020 End: 01-11-2022 Alcohol intake Current drinker of alcohol (finding) [facility] Start: 12-11-2021 End: 09-18-2022 History SDOH Alcohol Frequency 1 [facility] Start: 12-11-2021 End: 09-18-2022 History SDOH Alcohol Std Drinks 98 [facility] Start: 10-20-2014 History SDOH Alcohol Comment occasionally [facility] Start: 12-11-2021 End: 09-18-2022 History SDOH Social Connections Phone 2 [facility] Start: 12-11-2021 End: 09-18-2022 History SDOH Social Connections Get Together 3 [facility] Start: 12-11-2021 End: 09-18-2022 History SDOH Social Connections Living 6 [facility] Start: 12-11-2021 End: 09-18-2022 History SDOH Physical Activity DPW 5 [facility] Start: 1990 Sex Assigned At Not on file [facility] Start: 11-01-2020 End: 09-09-2022 Exposure to SARS-CoV-2 (event) Not sure [facility] Start: 1990 Sex Assigned At Female [facility] History of tobacco use Current smoker [facility] Work Phone: Start: 09-18-2022 History SDOH Alcohol Std Drinks 0 [facility] Start: 09-18-2022 History SDOH Financial 4 [facility] Start: 11-01-2022 Tobacco use and exposure User of smokeless tobacco [facility] Start: 11-01-2022 Tobacco Comment vape [facility] Start: 11-01-2021 End: 02-02-2024 Tobacco smoking status MEIS Unknown if ever smoked [facility] Start: 08-04-2020 Rare [facility] Start: 08-04-2020 None [facility] Start: 08-04-2020 With Family [facility] Start: 09-17-2022 End: 03-18-2023 Social connection and isolation panel [facility] In a typical week, h ow many times do you talk on the telephone with family, friends, or neighbors? Patient refused [facility] Do you belong to any clubs or organizations such as amish groups, unions, fraternal or athletic groups, or school groups? No [facility] Are you now , , , , never or living with a partner? [facility] How often to you hav e a drink containing alcohol? Never [facility] How hard is it for y ou to pay for the very basics like food, housing, medical care, and heating Not very hard [facility] Do you feel stress - tense, restless, nervous, or anxious, or unable to sleep at night because your mind is troubled all the time - these days [OSQ] Only a little [facility] (I/We) worried wheary er (my/our) food would run out before (I/we) got money to buy more. Never true [facility] Start: 07-11-2023 End: 10-27-2024 Alcohol intake Ex-drinker (finding) [facility] Start: 05-21-2023 [facility] Are you now , , , , never or living with a partner? [facility] Do you feel stress - tense, restless, nervous, or anxious, or unable to sleep at night because your mind is troubled all the time - these days [OSQ] To some extent [facility] Medical Equipment Procedure Code Equipment Code Equipment Original Text Equipment Identifier Dates [id number], [id number] Start: 11-19-2023 End: 03-12-2024 Comment on above: 1 Strip four times d aily. Use as instructed 1 Each four times da samantha. Use as instructed Goals Date Patient Goal Desired Activity /State Personal health goal Functional Status Date Assessment Result Facility 05-09-2022 Functional Status Standard Safet y ID band on, Call device within reach, Bed in low position, Wheels locked, Upper/Half-Length side-rails up, Bedside Cart Locked, Safety level maintained [facility] 05-09-2022 Functional Status [facility] 04-05-2015 Are you deaf, or do you have serious difficulty hearing No 04/05/2015 8:32 AM Isabel Jane MA No [facility] 04-05-2015 Are you blind, or do you have serious difficulty seeing, even when wearing glasses No 04/05/2015 8:32 AM Isabel Jane MA No [facility] 04-05-2015 Do you have serious difficulty walking or climbing stairs No 04/05/2015 8:32 AM Isabel Jane MA No [facility] 04-05-2015 Do you have difficul ty dressing or bathing No 04/05/2015 8:32 AM Isabel Jane MA No [facility] 04-05-2015 Because of a physica l, mental, or emotional condition, do you have difficulty doing errands alone such as visiting a physician's office or shopping No 04/05/2015 8:32 AM Isabel Jane MA No [facility] Mental Status Date Assessment Result Facility 12-13-2023 Cognitive function Voice/Name [facility] Work Phone: 08-07-2023 Cognitive function Level Of Cons ciousness Awake;Alert;Appropriate;Fol lows Commands [facility] Work Phone: 05-09-2022 Mental Status Orientation Oriented x 4 [facility] 05-09-2022 Mental Status [facility] 04-05-2015 Because of a physica l, mental, or emotional condition, do you have serious difficulty concentrating, remembering, or making decisions No 04/05/2015 8:32 AM EDT Isabel Porter MA No [facility] Clinical Notes 11-22-2014 to 03-18-2025 Telephone Encounter - Jennifer Regan MA - 03/18/2025 2:08 PM EDTTelephone Encounter - Jennifer Regan MA - 03/18/2025 2:08 PM Lisa Ardon RT(R) - 02/04/2025 8:00 AM EDT Note Date & Type Note Facility 03-18-2025 Telephone encounter Note Left message on to call office back Jennifer Regan MA [facility] 03-18-2025 Miscellaneous Notes Left message on to call office back Jennifer Regan MA Sent the medication Regards, Kishor Hernandez MD Patient calls to ask if provider would place her back on the Wellbutrin now that she is no longer . Patient last seen for Annual 06/15/2024. Aware appointment needs scheduled for that and asking if provider would order medication prior to seeing patient. Please review and advise, Daysi Olmstead, ASH documented in this encounter [facility] 03-18-2025 Telephone encounter Note Sent the medication RegardsKishro MD [facility] 03-18-2025 Telephone encounter Note Patient calls to ask if provider would place her back on the Wellbutrin now that she is no longer . Patient last seen for Annual 06/15/2024. Aware appointment needs scheduled for that and asking if provider would order medication prior to seeing patient. Please review and advise, Daysi Olmstead RN [facility] 02-04-2025 History of Presen t illness Narrative RADIOLOGY SERVICE PROGRESS NOTE SERVICE DATE: 02/04/2025 SERVICE TIME: 08:05 AM PATIENT IDENTITY VERIFICATION COMPLETED USING TWO (2) STANDARD IDENTIFIERS: Name and Date of confirmed by patient verbally FALL SCREENING: Has the patient had 2 falls in the last year or 1 fall with injury or currently using an Ambulatory Assistive Device (Walker, Cane, Wheelchair, Crutches, etc.)? No PATIENT GENDER DATA: .female : No status: Yes Instructions to Patients Receiving Radiopharmaceuticals was given to the patient, discussed, signed, scanned in her record, copy given to patient and original retained by the department. It is recommended to discontinue for 24 hours after administration for this radiopharmaceutical. She was in agreement. ALLERGIES: Reviewed and unchanged MEDICATIONS REVIEWED: No PATIENT RELEVANT IMPLANT DATA REVIEWED: Not Applicable PATIENT PRESENTS WITH AN IMPLANTABLE OR ATTACHED GLASS BEVELLER: n/a CREATININE: Creatinine Date Value Ref Range Status 04/28/2024 0.80 0.58 - 0.96 mg/dL Final 05/13/2023 0.85 0.58 - 0.96 mg/dL Final 01/22/2023 0.79 0.58 - 0.96 mg/dL Final Estimated Glomerular Filtration Rate Date Value Ref Range Status 04/28/2024 101 >=60 mL/min/1.73m Final Comment: Estimated Glomerular Filtration Rate (eGFR) is calculated using the 2020 CKD-EPI creatinine equation. This equation utilizes serum creatinine, sex, and age as parameters. The creatinine assay has traceable calibration to isotope dilution-mass spectrometry. Refer to KDIGO guidelines for clinical interpretation. In patients with unstable renal function, e.g. those with acute kidney injury, the eGFR may not accurately reflect actual GFR. eGFR- Date Value Ref Range Status 03/25/2016 >60 Final P.O.C.T. RESULTS: N/A February 04, [address] PERFORMED: No IV SITE: NM only - not applicable, oral or physician administered agents given to patient POST EXAM PIV STATUS: Not applicable PROCEDURE TYPE: NM GET: 1.1 mCi Tc99m SULFUR COLLOID was administered orally via 4 ounces of Egg Beaters, 1/2 piece of toast, 1/4 ounce of jelly with 5 ounces of water orally ADMINISTRATION TIME: 08:20 PATIENT DISCHARGED TO: Ambulatory patient, left [place] department area. Is this a therapy: No A Diagnostic radioactive procedure has taken place, with no further precautions necessary other than routine body substance precautions. More information regarding radiation safety can be found using this link: [email or web address]%[email or web address] uclear%[email or web address] df SIGNATURE: RT Amarilis(Miguel) PATIENT NAME: Aiden French DATE: February 04, 2025 TIME: 10:00 AM PAGER/CONTACT #: documented in this encounter [facility] 02-04-2025 Miscellaneous Notes Encounter addended by: Lisa Pulliam RT(Miguel) on: 02/04/2025 10:24 AM Actions taken: Clinical Note Signed documented in this encounter [facility] 02-04-2025 Note Encounter addended b y: Lisa Pulliam RT(R) on: 02/04/2025 10:24 AM Actions taken: Clinical Note Signed [facility] 02-04-2025 Note HNO ID: [id number] Author: LISA PULLIAM RT(R) Service: Nuclear Medicine Author Type: Technologist Type: Progress Notes Filed: 02/04/2025 10:24 Note Text: RADIOLOGY SERVICE PROGRESS NOTE SERVICE DATE: 02/04/2025 SERVICE TIME: 08:05 AM PATIENT IDENTITY VERIFICATION COMPLETED USING TWO (2) STANDARD IDENTIFIERS: Name and Date of confirmed by patient verbally FALL SCREENING: Has the patient had 2 falls in the last year or 1 fall with injury or currently using an Ambulatory Assistive Device (Walker, Cane, Wheelchair, Crutches, etc.)? No PATIENT GENDER DATA: .female : No status: Yes Instructions to Patients Receiving Radiopharmaceuticals was given to the patient, discussed, signed, scanned in her record, copy given to patient and original retained by the department. It is recommended to discontinue for 24 hours after administration for this radiopharmaceutical. She was in agreement. ALLERGIES: Reviewed and unchanged MEDICATIONS REVIEWED: No PATIENT RELEVANT IMPLANT DATA REVIEWED: Not Applicable PATIENT PRESENTS WITH AN IMPLANTABLE OR ATTACHED GLASS BEVELLER: n/a CREATININE: Creatinine Date Value Ref Range Status 04/28/2024 0.80 0.58 - 0.96 mg/dL Final 05/13/2023 0.85 0.58 - 0.96 mg/dL Final 01/22/2023 0.79 0.58 - 0.96 mg/dL Final Estimated Glomerular Filtration Rate Date Value Ref Range Status 04/28/2024 101 >=60 mL/min/1.73m? Final Comment: Estimated Glomerular Filtration Rate (eGFR) is calculated using the 2020 CKD-EPI creatinine equation. This equation utilizes serum creatinine, sex, and age as parameters. The creatinine assay has traceable calibration to isotope dilution-mass spectrometry. Refer to KDIGO guidelines for clinical interpretation. In patients with unstable renal function, e.g. those with acute kidney injury, the eGFR may not accurately reflect actual GFR. eGFR- Date Value Ref Range Status 03/25/2016 >60 Final P.O.C.T. RESULTS: N/A February 04, [address] PERFORMED: No IV SITE: NM only - not applicable, oral or physician administered agents given to patient POST EXAM PIV STATUS: Not applicable PROCEDURE TYPE: NM GET: 1.1 mCi Tc99m SULFUR COLLOID was administered orally via 4 ounces of Egg Beaters, 1/2 piece of toast, 1/4 ounce of jelly with 5 ounces of water orally ADMINISTRATION TIME: 08:20 PATIENT DISCHARGED TO: Ambulatory patient, left [place] department area. Is this a therapy: No A Diagnostic radioactive procedure has taken place, with no further precautions necessary other than routine body substance precautions. More information regarding radiation safety can be found using this link: [email or web address] [email or web address]-% 20Diagnostic%20Nuclear%20Medicin e%20Procedures.pdf SIGNATURE: RT Amarilis(R) PATIENT NAME: Aiden French DATE: February 04, 2025 TIME: 10:00 AM PAGER/CONTACT #: [facility] 01-24-2025 History of Presen t illness Narrative VIRTUAL VISIT PROGRESS NOTE This is a virtual visit. It required patient-provider interaction for the medical decision making as documented below. I have communicated my name and active licensure. The patient's identity and physical location were verified at the time of this visit. Either the patient or their legal office services representative has been informed of the risks and benefits of -- and alternatives to -- treatment through a remote evaluation and consents to proceed with the evaluation remotely. CC: follow up for GERD HPI: Aiden French is a 34 year old female seen for follow up of GERD. At her last visit 09/23/24, she was switched from pantoprazole to omeprazole 40mg BID and instructed to use Gaviscon or mylanta for breakthrough. Previously, pantoprazole was not helping and she had GERD daily. Sucralfate was hard to dose around other meds. In November, she called in for refills of famotidine 20mg BID and was off all PPI's. Currently: She is back on the omeprazole 40mg BID She is still having symptoms of burning and globus in her throat. The burning is a little better overall, but still present. Still has hiccups all the time. She has cut out all spicy foods and is only eating a bland diet. She feels full all the time and has early satiety. She can't sleep d/t symptoms and if she bends over, she regurgitates. Record Review: [facility] / Outside records reviewed (EGD done 08/03/24). EGD showed LA B esophagitis; 3cm hiatal hernia HISTORY REVIEWED (electronic chart updated): PAST MEDICAL HISTORY Diagnosis Date Back pain GERD (gastroesophageal reflux disease) Overweight (BMI 25.0-29.9) 11/22/2014 PAST SURGICAL HISTORY Procedure Laterality Date EGD W/O [facility] SPEC VARICIES INJ 08/03/2024 FAMILY HISTORY Problem Relation Age of Onset Asthma Mother Cataract Mother Cataract Maternal Grandmother Cataract Maternal Grandfather other (Heart, brain mass) Maternal Grandfather Cataract Paternal Grandmother Cataract Paternal Grandfather Breast Cancer Other great grandmother-p Colon Cancer No Family History Social History Tobacco Use Smoking status: Former Current packs/day: 0.50 Average packs/day: 0.5 packs/day for 5.0 years (2.5 ttl pk-yrs) Types: Cigarettes Smokeless tobacco: Never Tobacco comments: vape Vaping Use Vaping status: Former Substance Use Topics Alcohol use: Not Currently Comment: occasionally Drug use: No Current Outpatient Medications Medication Sig Dispense Refill famotidine (PEPCID) 20 mg tablet Take 1 tablet by mouth two times a day. 60 tablet 3 sertraline (ZOLOFT) 25 mg tablet Take 1 tablet by mouth once daily. 30 tablet 5 hydrocortisone-pramoxine (ANALPRAM-HC) 2.5-1 % rectal cream by RECTAL route three times a day for 7 days. Use as directed. 30 g 0 Docosahexanoic Acid 200 mg cap Take by mouth. No current facility-administered medications for this visit. ALLERGIES No Known Allergies Review of Systems: Review of Systems All other systems reviewed and are negative. PHYSICAL EXAMINATION: Physical Exam Constitutional: Appearance: Normal appearance. She is obese. Eyes: General: No scleral icterus. Pulmonary: Effort: Pulmonary effort is normal. Skin: Coloration: Skin is not jaundiced. Neurological: Mental Status: She is alert and oriented to person, place, and time. Psychiatric: Mood and Affect: Mood normal. Behavior: Behavior normal. Thought Content: Thought content normal. Judgment: Judgment normal. Assessment and Plan: (K21.00) Gastroesophageal reflux disease with esophagitis without hemorrhage (primary encounter diagnosis) (R68.81) Early satiety (R10.13) Dyspepsia (K44.9) Hiatal hernia (R09.A2) Globus pharyngeus 1. Gastroesophageal reflux disease with esophagitis without hemorrhage (Primary) - still having significant issues. Given early satiety, will check GES, and if negative or no response to Tx, then refer to Dr. Saunders/Rose/Marivel for refractory GERD - omeprazole (PRILOSEC) 40 mg capsule; Take 1 capsule by mouth two times a day. Dispense: 180 capsule; Refill: 0 2. Early satiety - check GES 3. Dyspepsia - NM GASTRIC EMPTYING SOLID; Future 4. Hiatal hernia - omeprazole (PRILOSEC) 40 mg capsule; Take 1 capsule by mouth two times a day. Dispense: 180 capsule; Refill: 0 5. Globus pharyngeus - continue omeprazole 40mg BID Follow up in office TBD based on testing Jose Delgado APRN.CNP January 24, 2025 9:40 AM documented in this encounter [facility] 01-24-2025 Note HNO ID: [id number] Author: JOSE DELGADO APRN.CNP Service: ? Author Type: Nurse Practitioner Type: Progress Notes Filed: 01/24/2025 09:42 Note Text: VIRTUAL VISIT PROGRESS NOTE This is a virtual visit. It required patient-provider interaction for the medical decision making as documented below. I have communicated my name and active licensure. The patient's identity and physical location were verified at the time of this visit. Either the patient or their legal office services representative has been informed of the risks and benefits of -- and alternatives to -- treatment through a remote evaluation and consents to proceed with the evaluation remotely. CC: follow up for GERD HPI: Aiden French is a 34 year old female seen for follow up of GERD. At her last visit 09/23/24, she was switched from pantoprazole to omeprazole 40mg BID and instructed to use Gaviscon or mylanta for breakthrough. Previously, pantoprazole was not helping and she had GERD daily. Sucralfate was hard to dose around other meds. In November, she called in for refills of famotidine 20mg BID and was off all PPI's. Currently: She is back on the omeprazole 40mg BID She is still having symptoms of burning and globus in her throat. The burning is a little better overall, but still present. Still has hiccups all the time. She has cut out all spicy foods and is only eating a bland diet. She feels full all the time and has early satiety. She can't sleep d/t symptoms and if she bends over, she regurgitates. Record Review: [facility] / Outside records reviewed (EGD done 08/03/24). EGD showed LA B esophagitis; 3cm hiatal hernia HISTORY REVIEWED (electronic chart updated): PAST MEDICAL HISTORY Diagnosis Date Back pain GERD (gastroesophageal reflux disease) Overweight (BMI 25.0-29.9) 11/22/2014 PAST SURGICAL HISTORY Procedure Laterality Date EGD W/O [facility] SPEC VARICIES INJ 08/03/2024 FAMILY HISTORY Problem Relation Age of Onset Asthma Mother Cataract Mother Cataract Maternal Grandmother Cataract Maternal Grandfather other (Heart, brain mass) Maternal Grandfather Cataract Paternal Grandmother Cataract Paternal Grandfather Breast Cancer Other great grandmother-p Colon Cancer No Family History Social History Tobacco Use Smoking status: Former Current packs/day: 0.50 Average packs/day: 0.5 packs/day for 5.0 years (2.5 ttl pk-yrs) Types: Cigarettes Smokeless tobacco: Never Tobacco comments: vape Vaping Use Vaping status: Former Substance Use Topics Alcohol use: Not Currently Comment: occasionally Drug use: No Current Outpatient Medications Medication Sig Dispense Refill famotidine (PEPCID) 20 mg tablet Take 1 tablet by mouth two times a day. 60 tablet 3 sertraline (ZOLOFT) 25 mg tablet Take 1 tablet by mouth once daily. 30 tablet 5 hydrocortisone-pramoxine (ANALPRAM-HC) 2.5-1 % rectal cream by RECTAL route three times a day for 7 days. Use as directed. 30 g 0 Docosahexanoic Acid 200 mg cap Take by mouth. No current facility-administered medications for this visit. ALLERGIES No Known Allergies Review of Systems: Review of Systems All other systems reviewed and are negative. PHYSICAL EXAMINATION: Physical Exam Constitutional: Appearance: Normal appearance. She is obese. Eyes: General: No scleral icterus. Pulmonary: Effort: Pulmonary effort is normal. Skin: Coloration: Skin is not jaundiced. Neurological: Mental Status: She is alert and oriented to person, place, and time. Psychiatric: Mood and Affect: Mood normal. Behavior: Behavior normal. Thought Content: Thought content normal. Judgment: Judgment normal. Assessment and Plan: (K21.00) Gastroesophageal reflux disease with esophagitis without hemorrhage (primary encounter diagnosis) (R68.81) Early satiety (R10.13) Dyspepsia (K44.9) Hiatal hernia (R09.A2) Globus pharyngeus 1. Gastroesophageal reflux disease with esophagitis without hemorrhage (Primary) - still having significant issues. Given early satiety, will check GES, and if negative or no response to Tx, then refer to Dr. Saunders/Rose/Marivel for refractory GERD - omeprazole (PRILOSEC) 40 mg capsule; Take 1 capsule by mouth two times a day. Dispense: 180 capsule; Refill: 0 2. Early satiety - check GES 3. Dyspepsia - [place] GASTRIC EMPTYING SOLID; Future 4. Hiatal hernia - omeprazole (PRILOSEC) 40 mg capsule; Take 1 capsule by mouth two times a day. Dispense: 180 capsule; Refill: 0 5. Globus pharyngeus - continue omeprazole 40mg BID Follow up in office TBD based on testing Jose Delgado APRN.[employer] January 24, 2025 9:40 AM [facility] 12-02-2024 Telephone encounter Note Patient had ankle surgery yesterday. She is asking if it is safe to breastfeed since she is on pain medications. Conferenced to the Answering Service for [employer]. [facility] 12-02-2024 Miscellaneous Notes Patient had ankle surgery yesterday. She is asking if it is safe to breastfeed since she is on pain medications. Conferenced to the Answering Service for [place] [employer]. documented in this encounter [facility] 11-30-2024 Telephone encounter Note Patient phones requesting refills as follows: spoke with her to confirm current meds, not taking any PPI currently Requested Prescriptions Pending Prescriptions Disp Refills famotidine (PEPCID) 20 mg tablet 60 tablet 3 Sig: Take 1 tablet by mouth two times a day. Aure Smalls CMA [facility] 11-30-2024 Miscellaneous Notes Patient phones requesting refills as follows: spoke with her to confirm current meds, not taking any PPI currently Requested Prescriptions Pending Prescriptions Disp Refills famotidine (PEPCID) 20 mg tablet 60 tablet 3 Sig: Take 1 tablet by mouth two times a day. Aure Smalls CMA Patient called requesting a refill on Famotidine. documented in this encounter [facility] 11-30-2024 Telephone encounter Note Patient called requesting a refill on Famotidine. [facility] 11-05-2024 Telephone encounter Note Patient MyChart message requesting the following refill Refill(s) Requested: Requested Prescriptions Pending Prescriptions Disp Refills sertraline (ZOLOFT) 25 mg tablet 30 tablet 5 Sig: Take 1 tablet by mouth once daily. ALLERGIES No Known Allergies (home) [phone] (cell) Last Office Visit Date: 06/15/2024 Last [facility] Visit: Visit date not found Future Appointment: Visit date not found The patients preferred pharmacy has been captured for this encounter? yes Request is for script(s) to be escript to pharmacy. Stephania Edwards LPN [facility] 11-05-2024 Miscellaneous Notes Patient MyChart message requesting the following refill Refill(s) Requested: Requested Prescriptions Pending Prescriptions Disp Refills sertraline (ZOLOFT) 25 mg tablet 30 tablet 5 Sig: Take 1 tablet by mouth once daily. ALLERGIES No Known Allergies (home) [phone] (cell) Last Office Visit Date: 06/15/2024 Last [facility] Visit: Visit date not found Future Appointment: Visit date not found The patients preferred pharmacy has been captured for this encounter? yes Request is for script(s) to be escript to pharmacy. Stephania Edwards LPN documented in this encounter [facility] 10-27-2024 Note HNO ID: [id number] Author: AMIRAH RIVERA PA-C Service: ? Author Type: Physician Grinding Room Inspector Type: Progress Notes Filed: 10/27/2024 12:34 Note Text: This note was created using [employer]. Subjective Aiden French is a 34 year old female. Patient is a 34-year-old female who complains of fever, chills, myalgia, sore throat, headache and cough that she has been experiencing for the past 2 days. Patient has no history of asthma or COPD and does not smoke. Cough Associated symptoms include chills, sore throat and myalgias. Review of Systems Constitutional: Positive for chills, fatigue and fever. HENT: Positive for sore throat. Respiratory: Positive for cough. Musculoskeletal: Positive for myalgias. All other systems reviewed and are negative. Objective BP 114/66 Pulse 104 Temp 36.9 ?C (98.5 ?F) Resp 20 Wt 84 kg (185 lb 3 oz) LMP 06/16/2023 (Exact Date) SpO2 98% BMI 36.17 kg/m? Physical Exam Vitals and nursing note reviewed. Constitutional: Appearance: Normal appearance. She is normal weight. HENT: Head: Normocephalic and atraumatic. Right Ear: Tympanic membrane, ear canal and external ear normal. Left Ear: Tympanic membrane, ear canal and external ear normal. Nose: Nose normal. Mouth/Throat: Mouth: Mucous membranes are moist. Pharynx: Oropharynx is clear. Eyes: Extraocular Movements: Extraocular movements intact. Conjunctiva/sclera: Conjunctivae normal. Pupils: Pupils are equal, round, and reactive to light. Cardiovascular: Rate and Rhythm: Normal rate and regular rhythm. Pulses: Normal pulses. Heart sounds: Normal heart sounds. Pulmonary: Effort: Pulmonary effort is normal. Breath sounds: Normal breath sounds. Musculoskeletal: Cervical back: Normal range of motion and neck supple. Skin: General: Skin is warm and dry. Capillary Refill: Capillary refill takes less than 2 seconds. Neurological: General: No focal deficit present. Mental Status: She is alert and oriented to person, place, and time. Psychiatric: Mood and Affect: Mood normal. Behavior: Behavior normal. Thought Content: Thought content normal. Judgment: Judgment normal. Assessment and Plan Physical exam findings as noted above. Rapid strep PCR is negative. Patient was provided with prescriptions for Tamiflu 75 mg and Tessalon 100 mg. Supportive care instructions were discussed and the patient verbalizes clear understanding of same. CLINICAL IMPRESSION: Viral Illness ASSESSMENT/PLAN: 1. Viral illness - ICD9: 079.99, ICD10: B34.9 - STREP A MOLECULAR (POC) - BENZONATATE 100 MG CAPSULE - OSELTAMIVIR 75 MG CAPSULE Amirah Rivera PA-C [facility] 10-27-2024 History of Presen t illness Narrative This note was created using [employer]. Subjective Aiden French is a 34 year old female. Patient is a 34-year-old female who complains of fever, chills, myalgia, sore throat, headache and cough that she has been experiencing for the past 2 days. Patient has no history of asthma or COPD and does not smoke. Cough Associated symptoms include chills, sore throat and myalgias. Review of Systems Constitutional: Positive for chills, fatigue and fever. HENT: Positive for sore throat. Respiratory: Positive for cough. Musculoskeletal: Positive for myalgias. All other systems reviewed and are negative. Objective BP 114/66 Pulse 104 Temp 36.9 C (98.5 F) Resp 20 Wt 84 kg (185 lb 3 oz) LMP 06/16/2023 (Exact Date) SpO2 98% BMI 36.17 kg/m Physical Exam Vitals and nursing note reviewed. Constitutional: Appearance: Normal appearance. She is normal weight. HENT: Head: Normocephalic and atraumatic. Right Ear: Tympanic membrane, ear canal and external ear normal. Left Ear: Tympanic membrane, ear canal and external ear normal. Nose: Nose normal. Mouth/Throat: Mouth: Mucous membranes are moist. Pharynx: Oropharynx is clear. Eyes: Extraocular Movements: Extraocular movements intact. Conjunctiva/sclera: Conjunctivae normal. Pupils: Pupils are equal, round, and reactive to light. Cardiovascular: Rate and Rhythm: Normal rate and regular rhythm. Pulses: Normal pulses. Heart sounds: Normal heart sounds. Pulmonary: Effort: Pulmonary effort is normal. Breath sounds: Normal breath sounds. Musculoskeletal: Cervical back: Normal range of motion and neck supple. Skin: General: Skin is warm and dry. Capillary Refill: Capillary refill takes less than 2 seconds. Neurological: General: No focal deficit present. Mental Status: She is alert and oriented to person, place, and time. Psychiatric: Mood and Affect: Mood normal. Behavior: Behavior normal. Thought Content: Thought content normal. Judgment: Judgment normal. Assessment and Plan Physical exam findings as noted above. Rapid strep PCR is negative. Patient was provided with prescriptions for Tamiflu 75 mg and Tessalon 100 mg. Supportive care instructions were discussed and the patient verbalizes clear understanding of same. CLINICAL IMPRESSION: Viral Illness ASSESSMENT/PLAN: 1. Viral illness - ICD9: 079.99, ICD10: B34.9 - STREP A MOLECULAR (POC) - BENZONATATE 100 MG CAPSULE - OSELTAMIVIR 75 MG CAPSULE Amirah Rivera PA-C documented in this encounter [facility] 10-13-2024 History of Presen t illness Narrative Radiology Service Progress Note PATIENT NAME: Aiden French DATE OF SERVICE: October 13, 2024 TIME: 12:11 PM PATIENT IDENTITY VERIFICATION COMPLETED USING TWO (2) IDENTIFIERS: Name and Date of confirmed by patient verbally. FALL SCREENING: Has the patient had 2 falls in the last year or 1 fall with injury or currently using an Ambulatory Assistive Device (Walker, Cane, Wheelchair, Crutches, etc.)? No PATIENT GENDER DATA: Female. status: : No status: NO. PATIENT RELEVANT IMPLANT DATA REVIEWED: Not Applicable PATIENT PRESENTS WITH AN IMPLANTABLE OR ATTACHED GLASS BEVELLER: No RADIOLOGY DEPARTMENT: General X-ray: Exam(s) Completed: Lower Extremity X-Ray(s): Foot, Right and Wt. Bearing PERIPHERAL IV DATA: Not applicable SIGNED BY: RT Kia(R) October 13, 2024 12:11 PM documented in this encounter [facility] 10-13-2024 Note HNO ID: [id number] Author: BRYCE GUILLEN RT(R) Service: Radiology Author Type: Technologist Type: Progress Notes Filed: 10/13/2024 12:20 Note Text: Radiology Service Progress Note PATIENT NAME: Aiden French DATE OF SERVICE: October 13, 2024 TIME: 12:11 PM PATIENT IDENTITY VERIFICATION COMPLETED USING TWO (2) IDENTIFIERS: Name and Date of confirmed by patient verbally. FALL SCREENING: Has the patient had 2 falls in the last year or 1 fall with injury or currently using an Ambulatory Assistive Device (Walker, Cane, Wheelchair, Crutches, etc.)? No PATIENT GENDER DATA: Female. status: : No status: NO. PATIENT RELEVANT IMPLANT DATA REVIEWED: Not Applicable PATIENT PRESENTS WITH AN IMPLANTABLE OR ATTACHED GLASS BEVELLER: No RADIOLOGY DEPARTMENT: General X-ray: Exam(s) Completed: Lower Extremity X-Ray(s): Foot, Right and Wt. Bearing PERIPHERAL IV DATA: Not applicable SIGNED BY: RT Kia(R) October 13, 2024 12:11 PM [facility] 10-13-2024 Note HNO ID: [id number] Author: ABEL THORNTON APRN.AUTO HEADLIGHT MECHANIC Service: ? Author Type: Nurse Practitioner Type: Progress Notes Filed: 10/13/2024 12:55 Note Text: Subjective Came in with complaints of right foot pain. Patient says it has been the last 4-yasir days. Patient did not injure it in any way. Patient does have a walking boot on her left foot so has possibly been utilizing the right foot more. Patient says it hurts more when she walks and puts pressure on it. Patient says it is the same pain throughout the day nothing makes it worse nothing makes it better. Patient denies any numbness tingling or loss of feeling. Patient denies any difficulty with strength or range of motion. The history is provided by the patient. No deli slicer was used. Pain (foot) Review of Systems Constitutional: Negative. Skin: Negative. Objective Physical Exam Constitutional: Appearance: Normal appearance. Pulmonary: Effort: Pulmonary effort is normal. Musculoskeletal: Feet: Feet: Comments: Is experiencing pain in the area marked above. It is tender to palpate. No signs of deformities, discolorations, redness or swelling. Range of motion and sensation are in normal limits. Circulation is intact. Neurological: Mental Status: She is alert. PAST MEDICAL HISTORY Diagnosis Date Back pain GERD (gastroesophageal reflux disease) Overweight (BMI 25.0-29.9) 11/22/2014 PAST SURGICAL HISTORY Procedure Laterality Date EGD W/O [facility] SPEC VARICIES INJ 08/03/2024 ALLERGIES Patient has no known allergies. MEDICATIONS dicyclomine (BENTYL) 10 mg capsule Take 1 capsule by mouth three times a day as needed (abdominal cramping). omeprazole (PRILOSEC) 40 mg capsule Take 1 capsule by mouth two times a day. Docosahexanoic Acid 200 mg cap Take by mouth. sertraline (ZOLOFT) 25 mg tablet Take 1 tablet by mouth once daily. hydrocortisone-pramoxine (ANALPRAM-HC) 2.5-1 % rectal cream by RECTAL route three times a day for 7 days. Use as directed. FAMILY HISTORY Problem Relation Age of Onset Asthma Mother Cataract Mother Cataract Maternal Grandmother Cataract Maternal Grandfather other (Heart, brain mass) Maternal Grandfather Cataract Paternal Grandmother Cataract Paternal Grandfather Breast Cancer Other great grandmother-p Colon Cancer No Family History Social History Tobacco Use Smoking status: Former Current packs/day: 0.50 Average packs/day: 0.5 packs/day for 5.0 years (2.5 ttl pk-yrs) Types: Cigarettes Smokeless tobacco: Never Tobacco comments: vape Vaping Use Vaping status: Former Substance Use Topics Alcohol use: Not Currently Comment: occasionally Drug use: No ASSESSMENT/PLAN: 1. Pain - ICD9: 780.96, ICD10: R52 - XR FOOT GENERAL 3V AP/LAT/OBL RIGHT * * * * Physician Interpretation * * * * History: Pain FINDINGS: AP view of both feet and oblique and lateral views of the right foot have been obtained. The bones are well-mineralized without evidence of fracture or dislocation. Joint spaces are maintained. No gross soft tissue abnormality seen. IMPRESSION IMPRESSION: No acute process is seen. Rubbing Bed Operator: AGUSTINA Transcribe Date/Time: Oct 13 2024 12:46P Dictated by : DYANA CAZARES MD Try to rest to take Tylenol and ice foot at this time. Offered podiatry patient not interested at this time we will follow-up if signs and symptoms persist. Patient agreeable to care plan. Abel Thorntno APRN.[facility] 10-13-2024 History of Presen t illness Narrative Subjective Came in with complaints of right foot pain. Patient says it has been the last 4-yasir days. Patient did not injure it in any way. Patient does have a walking boot on her left foot so has possibly been utilizing the right foot more. Patient says it hurts more when she walks and puts pressure on it. Patient says it is the same pain throughout the day nothing makes it worse nothing makes it better. Patient denies any numbness tingling or loss of feeling. Patient denies any difficulty with strength or range of motion. The history is provided by the patient. No deli slicer was used. Pain (foot) Review of Systems Constitutional: Negative. Skin: Negative. Objective Physical Exam Constitutional: Appearance: Normal appearance. Pulmonary: Effort: Pulmonary effort is normal. Musculoskeletal: Feet: Feet: Comments: Is experiencing pain in the area marked above. It is tender to palpate. No signs of deformities, discolorations, redness or swelling. Range of motion and sensation are in normal limits. Circulation is intact. Neurological: Mental Status: She is alert. PAST MEDICAL HISTORY Diagnosis Date Back pain GERD (gastroesophageal reflux disease) Overweight (BMI 25.0-29.9) 11/22/2014 PAST SURGICAL HISTORY Procedure Laterality Date EGD W/O [facility] SPEC VARICIES INJ 08/03/2024 ALLERGIES Patient has no known allergies. MEDICATIONS dicyclomine (BENTYL) 10 mg capsule Take 1 capsule by mouth three times a day as needed (abdominal cramping). omeprazole (PRILOSEC) 40 mg capsule Take 1 capsule by mouth two times a day. Docosahexanoic Acid 200 mg cap Take by mouth. sertraline (ZOLOFT) 25 mg tablet Take 1 tablet by mouth once daily. hydrocortisone-pramoxine (ANALPRAM-HC) 2.5-1 % rectal cream by RECTAL route three times a day for 7 days. Use as directed. FAMILY HISTORY Problem Relation Age of Onset Asthma Mother Cataract Mother Cataract Maternal Grandmother Cataract Maternal Grandfather other (Heart, brain mass) Maternal Grandfather Cataract Paternal Grandmother Cataract Paternal Grandfather Breast Cancer Other great grandmother-p Colon Cancer No Family History Social History Tobacco Use Smoking status: Former Current packs/day: 0.50 Average packs/day: 0.5 packs/day for 5.0 years (2.5 ttl pk-yrs) Types: Cigarettes Smokeless tobacco: Never Tobacco comments: vape Vaping Use Vaping status: Former Substance Use Topics Alcohol use: Not Currently Comment: occasionally Drug use: No ASSESSMENT/PLAN: 1. Pain - ICD9: 780.96, ICD10: R52 - XR FOOT GENERAL 3V AP/LAT/OBL RIGHT * * * * Physician Interpretation * * * * History: Pain FINDINGS: AP view of both feet and oblique and lateral views of the right foot have been obtained. The bones are well-mineralized without evidence of fracture or dislocation. Joint spaces are maintained. No gross soft tissue abnormality seen. IMPRESSION IMPRESSION: No acute process is seen. Rubbing Bed Operator: AGUSTINA Transcribe Date/Time: Oct 13 2024 12:46P Dictated by : DYANA CAZARES MD Try to rest to take Tylenol and ice foot at this time. Offered podiatry patient not interested at this time we will follow-up if signs and symptoms persist. Patient agreeable to care plan. Abel Thornton APRN.[facility] documented in this encounter [facility] 09-27-2024 Note Addended by: JOSE DELGADO on: 09/27/2024 11:26 AM Modules accepted: Orders [facility] 09-27-2024 Miscellaneous Notes Addended by: JOSE DELGADO on: 09/27/2024 11:26 AM Modules accepted: Orders documented in this encounter [facility] 09-23-2024 Instructions Jose Delgado APRN.CNP - 09/23/2024 8:44 AM EST - If still having symptoms of GERD/chest discomfort then it is ok to use over the counter Mylanta or liquid gaviscon documented in this encounter [facility] 09-23-2024 Note HNO ID: [id number] Author: JOSE DELGADO APRN.CNP Service: ? Author Type: Nurse Practitioner Type: Progress Notes Filed: 09/23/2024 08:48 Note Text: CHIEF COMPLAINT: Patient presents with: Recheck: EGD done HPI Aiden French is a 34 year old female here today for Recheck (EGD done 08/03/24). EGD showed LA B esophagitis; 3cm hiatal hernia. The pantoprazole sucralfate and pepcid have not helped; currently only taking pantoprazole but still with GERD everyday. She does admit that she has forgotten to take her meds at times. She feels like the pantoprazole does something, and feels like it is just not enough. Sucralfate helped initially, but it was too difficult to dose. She is having some gallbladder attacks once every 3 months; were more frequent when she was . Current Outpatient Medications Medication Sig Docosahexanoic Acid 200 mg cap Take by mouth. pantoprazole DR (PROTONIX) 40 mg tablet Take 1 tablet by mouth daily before breakfast. Take on empty stomach, 1/2 hr before meal. sertraline (ZOLOFT) 25 mg tablet Take 1 tablet by mouth once daily. sucralfate (CARAFATE) 100 mg/mL suspension take 10 MILLILITERS ( 2 TEASPOONFULS ) by mouth three times a day for 14 days (Patient not taking: Reported on 09/23/2024) famotidine (PEPCID) 20 mg tablet Take 1 tablet by mouth two times a day. (Patient not taking: Reported on 09/23/2024) No current facility-administered medications for this visit. ALLERGIES No Known Allergies Social History Tobacco Use Smoking status: Former Current packs/day: 0.50 Average packs/day: 0.5 packs/day for 5.0 years (2.5 ttl pk-yrs) Types: Cigarettes Smokeless tobacco: Never Tobacco comments: vape Vaping Use Vaping status: Former Substance Use Topics Alcohol use: Not Currently Comment: occasionally Drug use: No PAST MEDICAL HISTORY Diagnosis Date Back pain GERD (gastroesophageal reflux disease) Overweight (BMI 25.0-29.9) 11/22/2014 PAST SURGICAL HISTORY Procedure Laterality Date EGD W/O [facility] SPEC VARICIES INJ 08/03/2024 FAMILY HISTORY Problem Relation Age of Onset Asthma Mother Cataract Mother Cataract Maternal Grandmother Cataract Maternal Grandfather other (Heart, brain mass) Maternal Grandfather Cataract Paternal Grandmother Cataract Paternal Grandfather Breast Cancer Other great grandmother-p Colon Cancer No Family History REVIEW OF SYSTEMS Review of Systems Gastrointestinal: Heartburn All other systems reviewed and are negative. PHYSICAL EXAM BP 122/74 Pulse 75 Ht 5' 0 (1.52m) Wt 182 lb (82.6kg) LMP 06/16/2023 BMI 35.54 kg/(m2). Physical Exam Vitals and nursing note reviewed. Constitutional: Appearance: Normal appearance. She is normal weight. HENT: Head: Normocephalic and atraumatic. Eyes: General: No scleral icterus. Cardiovascular: Rate and Rhythm: Normal rate. Pulmonary: Effort: Pulmonary effort is normal. Breath sounds: Normal breath sounds. Abdominal: General: Abdomen is flat. Bowel sounds are normal. Palpations: Abdomen is soft. Tenderness: There is no abdominal tenderness. There is no guarding or rebound. Neurological: Mental Status: She is alert and oriented to person, place, and time. Psychiatric: Mood and Affect: Mood normal. Behavior: Behavior normal. Thought Content: Thought content normal. Judgment: Judgment normal. ASSESSMENT: (K21.00) Gastroesophageal reflux disease with esophagitis without hemorrhage (primary encounter diagnosis) (K44.9) Hiatal hernia 1. Gastroesophageal reflux disease with esophagitis without hemorrhage - Will have her stop the pantoprazole and switch to omeprazole 40mg BID. If having breakthrough symptoms, can use Mylanta or liquid gaviscon - continue with dietary modifications for GERD - omeprazole (PRILOSEC) 40 mg capsule; Take 1 capsule by mouth two times a day. Dispense: 180 capsule; Refill: 0 2. Hiatal hernia - omeprazole (PRILOSEC) 40 mg capsule; Take 1 capsule by mouth two times a day. Dispense: 180 capsule; Refill: 0 Follow up in office 3 months/MYKE Delgado APRN.[employer] HEADLIGHT MECHANIC September 23, 2024 8:46 AM [facility] 09-23-2024 History of Presen t illness Narrative CHIEF COMPLAINT: Patient presents with: Recheck: EGD done HPI Aiden French is a 34 year old female here today for Recheck (EGD done 08/03/24). EGD showed LA B esophagitis; 3cm hiatal hernia. The pantoprazole sucralfate and pepcid have not helped; currently only taking pantoprazole but still with GERD everyday. She does admit that she has forgotten to take her meds at times. She feels like the pantoprazole does something, and feels like it is just not enough. Sucralfate helped initially, but it was too difficult to dose. She is having some gallbladder attacks once every 3 months; were more frequent when she was . Current Outpatient Medications Medication Sig Docosahexanoic Acid 200 mg cap Take by mouth. pantoprazole DR (PROTONIX) 40 mg tablet Take 1 tablet by mouth daily before breakfast. Take on empty stomach, 1/2 hr before meal. sertraline (ZOLOFT) 25 mg tablet Take 1 tablet by mouth once daily. sucralfate (CARAFATE) 100 mg/mL suspension take 10 MILLILITERS ( 2 TEASPOONFULS ) by mouth three times a day for 14 days (Patient not taking: Reported on 09/23/2024) famotidine (PEPCID) 20 mg tablet Take 1 tablet by mouth two times a day. (Patient not taking: Reported on 09/23/2024) No current facility-administered medications for this visit. ALLERGIES No Known Allergies Social History Tobacco Use Smoking status: Former Current packs/day: 0.50 Average packs/day: 0.5 packs/day for 5.0 years (2.5 ttl pk-yrs) Types: Cigarettes Smokeless tobacco: Never Tobacco comments: vape Vaping Use Vaping status: Former Substance Use Topics Alcohol use: Not Currently Comment: occasionally Drug use: No PAST MEDICAL HISTORY Diagnosis Date Back pain GERD (gastroesophageal reflux disease) Overweight (BMI 25.0-29.9) 11/22/2014 PAST SURGICAL HISTORY Procedure Laterality Date EGD W/O [facility] SPEC VARICIES INJ 08/03/2024 FAMILY HISTORY Problem Relation Age of Onset Asthma Mother Cataract Mother Cataract Maternal Grandmother Cataract Maternal Grandfather other (Heart, brain mass) Maternal Grandfather Cataract Paternal Grandmother Cataract Paternal Grandfather Breast Cancer Other great grandmother-p Colon Cancer No Family History REVIEW OF SYSTEMS Review of Systems Gastrointestinal: Heartburn All other systems reviewed and are negative. PHYSICAL EXAM BP 122/74 Pulse 75 Ht 5' 0 (1.52m) Wt 182 lb (82.6kg) LMP 06/16/2023 BMI 35.54 kg/(m^2). Physical Exam Vitals and nursing note reviewed. Constitutional: Appearance: Normal appearance. She is normal weight. HENT: Head: Normocephalic and atraumatic. Eyes: General: No scleral icterus. Cardiovascular: Rate and Rhythm: Normal rate. Pulmonary: Effort: Pulmonary effort is normal. Breath sounds: Normal breath sounds. Abdominal: General: Abdomen is flat. Bowel sounds are normal. Palpations: Abdomen is soft. Tenderness: There is no abdominal tenderness. There is no guarding or rebound. Neurological: Mental Status: She is alert and oriented to person, place, and time. Psychiatric: Mood and Affect: Mood normal. Behavior: Behavior normal. Thought Content: Thought content normal. Judgment: Judgment normal. ASSESSMENT: (K21.00) Gastroesophageal reflux disease with esophagitis without hemorrhage (primary encounter diagnosis) (K44.9) Hiatal hernia 1. Gastroesophageal reflux disease with esophagitis without hemorrhage - Will have her stop the pantoprazole and switch to omeprazole 40mg BID. If having breakthrough symptoms, can use Mylanta or liquid gaviscon - continue with dietary modifications for GERD - omeprazole (PRILOSEC) 40 mg capsule; Take 1 capsule by mouth two times a day. Dispense: 180 capsule; Refill: 0 2. Hiatal hernia - omeprazole (PRILOSEC) 40 mg capsule; Take 1 capsule by mouth two times a day. Dispense: 180 capsule; Refill: 0 Follow up in office 3 months/PRN Jose Delgado APRN.[employer] September 23, 2024 8:46 AM documented in this encounter [facility] 09-13-2024 Telephone encounter Note Continue? Requested Prescriptions Pending Prescriptions Disp Refills sucralfate (CARAFATE) 100 mg/mL suspension [Pharmacy Med Name: SUCRALFATE 1 GM/10 ML SUSP] 420 mL 0 Sig: take 10 MILLILITERS ( 2 TEASPOONFULS ) by mouth three times a day for 14 days Please review and advise. Aure Smalls CMA [facility] 09-13-2024 Miscellaneous Notes Continue? Requested Prescriptions Pending Prescriptions Disp Refills sucralfate (CARAFATE) 100 mg/mL suspension [Pharmacy Med Name: SUCRALFATE 1 GM/10 ML SUSP] 420 mL 0 Sig: take 10 MILLILITERS ( 2 TEASPOONFULS ) by mouth three times a day for 14 days Please review and advise. Aure Smalls CMA documented in this encounter [facility] 08-24-2024 Telephone encounter Note Patient phones requesting refills as follows: Requested Prescriptions Pending Prescriptions Disp Refills sucralfate (CARAFATE) 100 mg/mL suspension [Pharmacy Med Name: SUCRALFATE 1 GM/10 ML SUSP] 420 mL 0 Sig: take 10 MILLILITERS ( 2 TEASPOONFULS ) by mouth three times a day for 14 days Please review and advise. Taryn Arizmendi MA [facility] 08-24-2024 Miscellaneous Notes Patient phones requesting refills as follows: Requested Prescriptions Pending Prescriptions Disp Refills sucralfate (CARAFATE) 100 mg/mL suspension [Pharmacy Med Name: SUCRALFATE 1 GM/10 ML SUSP] 420 mL 0 Sig: take 10 MILLILITERS ( 2 TEASPOONFULS ) by mouth three times a day for 14 days Please review and advise. Taryn Arizmendi MA documented in this encounter [facility] 08-03-2024 Note HNO ID: [id number] Author: SHERYL HUI RN Service: ? Author Type: Registered Nurse Type: Nursing Progress Note Filed: 08/03/2024 15:28 Note Text: Dr Ramirez at bedside to speak with patient and friend. [facility] 08-03-[address] Ramirez at bedside to speak with patient and friend. [facility] 08-03-[address] Ramirez at bedside to speak with patient and friend. documented in this encounter [facility] 08-03-2024 Note Formatting of this n ote might be different from the original. The patient received a copy of EGD discharge instructions that contain information for how to contact the physician who performed the procedure and when to seek medical care. [facility] 08-03-2024 Miscellaneous Notes The patient received a copy of EGD discharge instructions that contain information for how to contact the physician who performed the procedure and when to seek medical care. documented in this encounter [facility] 08-03-2024 History and physical note Endoscopy pre-operative H&P H&P completed prior to the start time of the procedure. IMPRESSION AND PLAN HPI: This is a 34 year old female. For EGD. GERD like symptoms Pertinent Review of Systems: GI: See HPI All other reviewed and negative other than HPI. PAST MEDICAL HISTORY: PAST MEDICAL HISTORY Diagnosis Date Back pain GERD (gastroesophageal reflux disease) Overweight (BMI 25.0-29.9) 11/22/2014 PAST SURGICAL HISTORY: History reviewed. No pertinent surgical history. OBJECTIVE: PHYSICAL EXAM: VITALS: BP 106/70 Pulse 76 Temp 36.4 C (97.6 F) (Temporal) Resp 16 Ht 152.4 cm (5') Wt 80.7 kg (178 lb) LMP 06/16/2023 (Exact Date) SpO2 99% BMI 34.76 kg/m General appearance: A&Ox3 Respiratory: Normal chest expansion. No audible wheezes. CVS: No shortness of breath, no extremity edema. Regular pulse. Plan: OK to proceed with endoscopy. SIGNATURE: Edgardo Ayala MD PATIENT NAME: Aiden French [facility] 08-03-2024 History and physical note Endoscopy pre-operative H&P H&P completed prior to the start time of the procedure. IMPRESSION AND PLAN HPI: This is a 34 year old female. For EGD. GERD like symptoms Pertinent Review of Systems: GI: See HPI All other reviewed and negative other than HPI. PAST MEDICAL HISTORY: PAST MEDICAL HISTORY Diagnosis Date Back pain GERD (gastroesophageal reflux disease) Overweight (BMI 25.0-29.9) 11/22/2014 PAST SURGICAL HISTORY: History reviewed. No pertinent surgical history. OBJECTIVE: PHYSICAL EXAM: VITALS: BP 106/70 Pulse 76 Temp 36.4 C (97.6 F) (Temporal) Resp 16 Ht 152.4 cm (5') Wt 80.7 kg (178 lb) LMP 06/16/2023 (Exact Date) SpO2 99% BMI 34.76 kg/m General appearance: A&Ox3 Respiratory: Normal chest expansion. No audible wheezes. CVS: No shortness of breath, no extremity edema. Regular pulse. Plan: OK to proceed with endoscopy. SIGNATURE: Edgardo Ayala MD PATIENT NAME: Aiden French documented in this encounter [facility] 07-29-2024 Instructions Jose Delgado APRN.CNP - 07/29/2024 3:19 PM EDT - will need to pump and dump your breast milk for 24 hours after the upper endoscopy - start sucralfate 10ml three times a day documented in this encounter [facility] 07-29-2024 Note HNO ID: [id number] Author: JOSE DELGADO APRN.CNP Service: ? Author Type: Nurse Practitioner Type: Progress Notes Filed: 07/29/2024 19:41 Note Text: CHIEF COMPLAINT: Patient presents with: GERD: Upper abdominal pain Interval History: - The patient is a 34-year-old female presenting with gastroesophageal reflux disease and upper abdominal pain. - She reports a 14-year history of acid reflux beginning with her first , worsening in recent years, particularly post- with her latest child, born approximately six months ago. - The patient experiences persistent symptoms including a sensation of a lump in her throat, shortness of breath, and difficulty swallowing, requiring water to assist in swallowing. - She has been taking [id number] medications, Pepcid, pantoprazole, and both without significant symptom relief. - Reports constant upper abdominal pain with episodes causing significant distress, previously managed with numbing medications in the emergency room. - The patient mentions possible gallbladder issues due to family history, including her mother's and aunt's gallbladder removal, as well as maternal history of diverticulitis. - Negative for H. pylori infection based on recent blood test four weeks prior. - Reports reduced tolerance to spicy food and dairy, leading to symptom exacerbation. - Anxiety and stress are noted to potentially exacerbate gastrointestinal symptoms. Record Review: [facility] / Outside records reviewed. PAST MEDICAL HISTORY Diagnosis Date Back pain GERD (gastroesophageal reflux disease) Overweight (BMI 25.0-29.9) 11/22/2014 No past surgical history on file. Allergies: ALLERGIES No Known Allergies Medications: Docosahexanoic Acid 200 mg cap Take by mouth. pantoprazole DR (PROTONIX) 40 mg tablet Take 1 tablet by mouth daily before breakfast. Take on empty stomach, 1/2 hr before meal. famotidine (PEPCID) 20 mg tablet Take 1 tablet by mouth two times a day. sertraline (ZOLOFT) 25 mg tablet Take 1 tablet by mouth once daily. 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 Gastrointestinal: Positive for abdominal pain. Gas, Heartburn All other systems reviewed and are negative. Are you taking any blood thinners? No Physical Examination: BP 118/72 Pulse 75 Ht 5' 0 (1.52m) Wt 178 lb (80.7kg) LMP 06/16/2023 BMI 34.76 kg/(m2). Physical Exam Vitals and nursing note reviewed. Constitutional: Appearance: Normal appearance. She is normal weight. HENT: Head: Normocephalic and atraumatic. Mouth/Throat: Mouth: Mucous membranes are moist. Eyes: General: No scleral icterus. Cardiovascular: Rate and Rhythm: Normal rate and regular rhythm. Heart sounds: Normal heart sounds. Pulmonary: Breath sounds: Normal breath sounds. Abdominal: General: Abdomen is flat. Bowel sounds are normal. Palpations: Abdomen is soft. Tenderness: There is no abdominal tenderness. There is no guarding or rebound. Musculoskeletal: General: No swelling. Skin: General: Skin is warm and dry. Neurological: Mental Status: She is alert and oriented to person, place, and time. Psychiatric: Mood and Affect: Mood normal. Behavior: Behavior normal. Thought Content: Thought content normal. Judgment: Judgment normal. Assessment: 34-year-old female with history of gastroesophageal reflux disease presenting with persistent gastroesophageal reflux symptoms and upper abdominal pain. The symptoms have notably worsened . Despite multiple medication trials, her symptoms remain uncontrolled, indicating the potential need for further investigation. There is a family history suggestive of gallbladder disease, thus necessitating evaluation for biliary pathology as part of the differential diagnosis. Her recent negative H. pylori test reduces the likelihood that this infection is contributing to her symptoms, though endoscopic confirmation remains warranted to definitively rule out other esophageal or gastric pathologies, including Loja?s esop (more content not included)... [facility] 07-29-2024 History of Presen t illness Narrative CHIEF COMPLAINT: Patient presents with: GERD: Upper abdominal pain Interval History: - The patient is a 34-year-old female presenting with gastroesophageal reflux disease and upper abdominal pain. - She reports a 14-year history of acid reflux beginning with her first , worsening in recent years, particularly post- with her latest child, born approximately six months ago. - The patient experiences persistent symptoms including a sensation of a lump in her throat, shortness of breath, and difficulty swallowing, requiring water to assist in swallowing. - She has been taking [id number] medications, Pepcid, pantoprazole, and both without significant symptom relief. - Reports constant upper abdominal pain with episodes causing significant distress, previously managed with numbing medications in the emergency room. - The patient mentions possible gallbladder issues due to family history, including her mother's and aunt's gallbladder removal, as well as maternal history of diverticulitis. - Negative for H. pylori infection based on recent blood test four weeks prior. - Reports reduced tolerance to spicy food and dairy, leading to symptom exacerbation. - Anxiety and stress are noted to potentially exacerbate gastrointestinal symptoms. Record Review: [facility] / Outside records reviewed. PAST MEDICAL HISTORY Diagnosis Date Back pain GERD (gastroesophageal reflux disease) Overweight (BMI 25.0-29.9) 11/22/2014 No past surgical history on file. Allergies: ALLERGIES No Known Allergies Medications: Docosahexanoic Acid 200 mg cap Take by mouth. pantoprazole DR (PROTONIX) 40 mg tablet Take 1 tablet by mouth daily before breakfast. Take on empty stomach, 1/2 hr before meal. famotidine (PEPCID) 20 mg tablet Take 1 tablet by mouth two times a day. sertraline (ZOLOFT) 25 mg tablet Take 1 tablet by mouth once daily. 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 Gastrointestinal: Positive for abdominal pain. Gas, Heartburn All other systems reviewed and are negative. Are you taking any blood thinners? No Physical Examination: BP 118/72 Pulse 75 Ht 5' 0 (1.52m) Wt 178 lb (80.7kg) LMP 06/16/2023 BMI 34.76 kg/(m^2). Physical Exam Vitals and nursing note reviewed. Constitutional: Appearance: Normal appearance. She is normal weight. HENT: Head: Normocephalic and atraumatic. Mouth/Throat: Mouth: Mucous membranes are moist. Eyes: General: No scleral icterus. Cardiovascular: Rate and Rhythm: Normal rate and regular rhythm. Heart sounds: Normal heart sounds. Pulmonary: Breath sounds: Normal breath sounds. Abdominal: General: Abdomen is flat. Bowel sounds are normal. Palpations: Abdomen is soft. Tenderness: There is no abdominal tenderness. There is no guarding or rebound. Musculoskeletal: General: No swelling. Skin: General: Skin is warm and dry. Neurological: Mental Status: She is alert and oriented to person, place, and time. Psychiatric: Mood and Affect: Mood normal. Behavior: Behavior normal. Thought Content: Thought content normal. Judgment: Judgment normal. Assessment: 34-year-old female with history of gastroesophageal reflux disease presenting with persistent gastroesophageal reflux symptoms and upper abdominal pain. The symptoms have notably worsened . Despite multiple medication trials, her symptoms remain uncontrolled, indicating the potential need for further investigation. There is a family history suggestive of gallbladder disease, thus necessitating evaluation for biliary pathology as part of the differential diagnosis. Her recent negative H. pylori test reduces the likelihood that this infection is contributing to her symptoms, though endoscopic confirmation remains warranted to definitively rule out other esophageal or gastric pathologies, including Loja s esophagus, esophagitis, or peptic ulcer disease. Plan: 1. Gastroesophageal reflux disease, unspecified whether esophagitis present (K21.9): Notably severe persistent symptoms warrant further investigation. Recommend upper endoscopy to evaluate possible esophagitis, Loja s esophagus, or other significant pathology. Discussed potential need for biopsy and ruled out H. pylori infection as contributing factor. - EGD DIAGNOSTIC; Future - sucralfate (CARAFATE) 100 mg/mL suspension; Take 10 mL by mouth three times a day for 14 days. Dispense: 420 mL; Refill: 0 2. Upper abdominal pain (R10.10): The differential includes GERD-related esophagitis and gallbladder disease, warranted by family history. Pain characteristics suggest further imaging studies if endoscopic findings are inconclusive. Management includes continuation of current acid suppression therapy and lifestyle modifications to alleviate symptoms until further evaluation is complete. - EGD DIAGNOSTIC; Future - sucralfate (CARAFATE) 100 mg/mL suspension; Take 10 mL by mouth three times a day for 14 days. Dispense: 420 mL; Refill: 0 Patient Instructions: - Continue prescribed medications, including pantoprazole in the morning and Pepcid in the evening. - Avoid known dietary triggers including spicy foods and dairy products. - Prepare for endoscopy as discussed, arranging for transportation and adhere to fasting requirements prior to the procedure. - Monitor symptoms, particularly any signs of bleeding or significant changes, and seek immediate care if these occur. - Follow post-procedure instructions including 24-hour pump and dump protocol due to . - Schedule and attend a follow-up visit post-procedure to discuss results and subsequent management. Follow up in office after EGD Jose Delgado APRN.CNP July 29, 2024 7:40 PM documented in this encounter [facility] 06-15-2024 Note HNO ID: [id number] Author: KISHOR HERNANDEZ MD Service: ? Author Type: Physician Type: Progress Notes Filed: 06/15/2024 17:34 Note Text: Reason for Visit Patient presents with: Physical Aiden French is a 34 year old female who presents here today for CPE. Health Maintenance Hepatitis B Vaccine(1 of 3 - 19+ 3-dose series) Covid-19 Vaccine( season) Influenza Vaccine(1) Cervical Cancer Screening DELL Ybarra is a 34-year-old woman with a past medical history of reflux disease, anxiety depression and palpitations. She had a baby recently, is 4 months old. was uneventful, it was the worst one she ever had. She was very tired. Gained around 30 pounds of weight , she is feeding her baby right now. Her reflux is worse after . She also has palpitations which is not better. The only thing she drinks, Is coffee, water and tea but has not had tea in a while. Reflux is better controlled,after the protonix. No problem-specific Assessment AND Plan notes found for this encounter. PAST MEDICAL HISTORY No date: Back pain 11/22/2014: Overweight (BMI 25.0-29.9) No past surgical history on file. FAMILY HISTORY Problem Relation Age of Onset Asthma Mother Cataract Mother Cataract Maternal Grandmother Cataract Maternal Grandfather other (Heart, brain mass) Maternal Grandfather Breast Cancer Other great grandmother-p Cataract Paternal Grandmother Cataract Paternal Grandfather Social History Tobacco Use Smoking status: Former Current packs/day: 0.50 Average packs/day: 0.5 packs/day for 5.0 years (2.5 ttl pk-yrs) Types: Cigarettes Smokeless tobacco: Never Tobacco comments: vape Vaping Use Vaping status: Former Substance Use Topics Alcohol use: Not Currently Comment: occasionally Drug use: No Past medical history, appointments, medications, allergies reviewed. Pertinent Lab/Diagnostic Studies are reviewed and discussed today Current Outpatient Medications: pantoprazole DR (PROTONIX) 40 mg tablet famotidine (PEPCID) 20 mg tablet sertraline (ZOLOFT) 25 mg tablet no.167-folic acid-dha 400 mcg- 25 mg chew Review of Systems CONSTITUTIONAL: No fevers, chills, nightsweats, unintended weight loss HEENT: Denies frequent or severe heaches, nasal congestion/sinus symptoms, problematic allergy problems. EYES: No diplopia or blurry vision. CARDIOVASCULAR: No chest pain, dyspnea, palpitations, orthopnea, PND, ankle edema. PULM: No dyspnea, unexplained cough. GI: No dysphagia/odynophagia, problematic reflux, constipation, diarrhea, changes in stool habits, hematochezia, melena. : No new urinary complaints, including dysuria, gross hematuria or pyuria. NEURO: No new balance problems, peripheral weakness/paresthesias or numbness of concern. MUSC-SKEL: No new joint pain, swelling, or erythema. PSY: No concerns regarding depression, anxiety or panic. INTEGUMENTARY: No new skin changes (rash, new or changing mole, new growth) Physical Exam BP 100/74 Pulse 81 Resp 16 Ht 152.4 cm (5') Wt 81.2 kg (179 lb) LMP 06/16/2023 (Exact Date) Yes BMI 34.96 kg/m? General appearance: Well appearing, alert, in no acute distress, well-hydrated, well nourished. Skin: Skin color, texture, turgor normal, no suspicious rashes or lesions Head: Normocephalic, no masses, lesions, tenderness or abnormalities Eyes: Anicteric sclera. Pupils are equally round and reactive to light. Extraocular movements are intact. Ears: External ears normal, canals clear Nose/Sinuses: Nares normal, septum midline, mucosa normal, no drainage or sinus tenderness Oropharynx: Lips, mucosa, and tongue normal, teeth and gums normal, oropharynx normal Neck: Supple, no adenopathy; thyroid symmetric, normal size, no bruits Back: Normal exam Lungs: Lungs clear to auscultation. No wheezing, rhonchi, rales Heart: RRR without murmur, gallop, or rubs. No ectopy Abdomen: Normal abdominal exam, Abdomen soft, non-tender. Bowel sounds normal. No masses, organomegaly Extremities: No deformities, edema, skin discoloration, clubbing or cyanosis. Good capillary refill. Musculoskeletal: No joint swelling, deformity, or tenderness Peripheral pulses: Normal Neuro: Gait normal. Reflexes normal and symmetric. Sensation grossly intact. ASSESSMENT/PLAN: 1. Annual physical exam - ICD9: V70.0, ICD10: Z00.00 - Counseled on healthy diet and regular exercise Kishor Hernandez MD [facility] 06-15-2024 History of Presen t illness Narrative Reason for Visit Patient presents with: Matthew French is a 34 year old female who presents here today for CPE. Health Maintenance Hepatitis B Vaccine(1 of 3 - 19+ 3-dose series) Covid-19 Vaccine( season) Influenza Vaccine(1) Cervical Cancer Screening DELL Ybarra is a 34-year-old woman with a past medical history of reflux disease, anxiety depression and palpitations. She had a baby recently, is 4 months old. was uneventful, it was the worst one she ever had. She was very tired. Gained around 30 pounds of weight , she is feeding her baby right now. Her reflux is worse after . She also has palpitations which is not better. The only thing she drinks, Is coffee, water and tea but has not had tea in a while. Reflux is better controlled,after the protonix. No problem-specific Assessment & Plan notes found for this encounter. PAST MEDICAL HISTORY No date: Back pain 11/22/2014: Overweight (BMI 25.0-29.9) No past surgical history on file. FAMILY HISTORY Problem Relation Age of Onset Asthma Mother Cataract Mother Cataract Maternal Grandmother Cataract Maternal Grandfather other (Heart, brain mass) Maternal Grandfather Breast Cancer Other great grandmother-p Cataract Paternal Grandmother Cataract Paternal Grandfather Social History Tobacco Use Smoking status: Former Current packs/day: 0.50 Average packs/day: 0.5 packs/day for 5.0 years (2.5 ttl pk-yrs) Types: Cigarettes Smokeless tobacco: Never Tobacco comments: vape Vaping Use Vaping status: Former Substance Use Topics Alcohol use: Not Currently Comment: occasionally Drug use: No Past medical history, appointments, medications, allergies reviewed. Pertinent Lab/Diagnostic Studies are reviewed and discussed today Current Outpatient Medications: pantoprazole DR (PROTONIX) 40 mg tablet famotidine (PEPCID) 20 mg tablet sertraline (ZOLOFT) 25 mg tablet no.167-folic acid-dha 400 mcg- 25 mg chew Review of Systems CONSTITUTIONAL: No fevers, chills, nightsweats, unintended weight loss HEENT: Denies frequent or severe heaches, nasal congestion/sinus symptoms, problematic allergy problems. EYES: No diplopia or blurry vision. CARDIOVASCULAR: No chest pain, dyspnea, palpitations, orthopnea, PND, ankle edema. PULM: No dyspnea, unexplained cough. GI: No dysphagia/odynophagia, problematic reflux, constipation, diarrhea, changes in stool habits, hematochezia, melena. : No new urinary complaints, including dysuria, gross hematuria or pyuria. NEURO: No new balance problems, peripheral weakness/paresthesias or numbness of concern. MUSC-SKEL: No new joint pain, swelling, or erythema. PSY: No concerns regarding depression, anxiety or panic. INTEGUMENTARY: No new skin changes (rash, new or changing mole, new growth) Physical Exam BP 100/74 Pulse 81 Resp 16 Ht 152.4 cm (5') Wt 81.2 kg (179 lb) LMP 06/16/2023 (Exact Date) Yes BMI 34.96 kg/m General appearance: Well appearing, alert, in no acute distress, well-hydrated, well nourished. Skin: Skin color, texture, turgor normal, no suspicious rashes or lesions Head: Normocephalic, no masses, lesions, tenderness or abnormalities Eyes: Anicteric sclera. Pupils are equally round and reactive to light. Extraocular movements are intact. Ears: External ears normal, canals clear Nose/Sinuses: Nares normal, septum midline, mucosa normal, no drainage or sinus tenderness Oropharynx: Lips, mucosa, and tongue normal, teeth and gums normal, oropharynx normal Neck: Supple, no adenopathy; thyroid symmetric, normal size, no bruits Back: Normal exam Lungs: Lungs clear to auscultation. No wheezing, rhonchi, rales Heart: RRR without murmur, gallop, or rubs. No ectopy Abdomen: Normal abdominal exam, Abdomen soft, non-tender. Bowel sounds normal. No masses, organomegaly Extremities: No deformities, edema, skin discoloration, clubbing or cyanosis. Good capillary refill. Musculoskeletal: No joint swelling, deformity, or tenderness Peripheral pulses: Normal Neuro: Gait normal. Reflexes normal and symmetric. Sensation grossly intact. ASSESSMENT/PLAN: 1. Annual physical exam - ICD9: V70.0, ICD10: Z00.00 - Counseled on healthy diet and regular exercise Kishor Hernandez MD documented in this encounter [facility] 06-09-2024 Note HNO ID: [id number] Author: DARYA QUIÑONES APRN.[employer] Service: ? Author Type: Nurse Practitioner Type: Progress Notes Filed: 06/09/2024 18:33 Note Text: CC: Patient presents with: Recheck: 6 week follow up HPI Aiden French is a 34 year old female who presents today for follow up on chronic palpitaitons and sternal pain. Pepcid restarted to see if upper abdominal and sternal pain resolved and ZIO ordered. ECHO also ordered as she has a grandfather who passed young of unknown heart related concerns but has been denied by insurance. Per patient she spoke to her mom since last visit and her mom said she was tested for whatever the issue was when she was a child and was negative. Has had some improvement in the sternal pain with restarting the pepcid but also forgets to take twice a day regularly. Pain is not as often and not as severe. Still with a lot of heartburn leading to regurgitation and upper abdominal discomfort. Denies vomiting but will burp and acid will be regurgitated into her mouth. Also denies difficulty swallowing but states he throat gets really dry and things sometimes seem to take sometime going down. Denies bowel changes, fever, chills, shortness of breath, edema, chest pressure, cough, wheezing, or change in chronic palpitations. ZIO patch unconcerning. REVIEW OF SYSTEMS See HPI PAST MEDICAL HISTORY No date: Back pain 11/22/2014: Overweight (BMI 25.0-29.9) No past surgical history on file. ALLERGIES Patient has no known allergies. MEDICATIONS famotidine (PEPCID) 20 mg tablet Take 1 tablet by mouth two times a day. sertraline (ZOLOFT) 25 mg tablet Take 1 tablet by mouth once daily. no.167-folic acid-dha 400 mcg- 25 mg chew Take 1 tablet by mouth once daily. multivit,calc,mins/iron/folic (ONE-A-DAY WOMENS FORMULA ORAL) Take by mouth. (Patient not taking: Reported on 05/01/2024) FAMILY HISTORY Problem Relation Age of Onset Asthma Mother Cataract Mother Cataract Maternal Grandmother Cataract Maternal Grandfather other (Heart, brain mass) Maternal Grandfather Breast Cancer Other great grandmother-p Cataract Paternal Grandmother Cataract Paternal Grandfather Social History Tobacco Use Smoking status: Former Current packs/day: 0.50 Average packs/day: 0.5 packs/day for 5.0 years (2.5 ttl pk-yrs) Types: Cigarettes Smokeless tobacco: Never Tobacco comments: vape Vaping Use Vaping status: Former Substance Use Topics Alcohol use: Not Currently Comment: occasionally Drug use: No PHYSICAL EXAM BP 112/78 Pulse 72 Resp 16 Wt 79.8 kg (175 lb 14.8 oz) LMP 03/09/2024 (Exact Date) SpO2 98% BMI 31.16 kg/m? General Appearance: well appearing, in no acute distress, alert Pysch: mood and affect broad and appropriate Eyes: conjunctiva pink and moist, no icterus, sclera white, non-injected Lungs: Lungs clear to auscultation. No wheezing, rhonchi, rales. Heart: RRR without murmur, gallop, or rubs. No ectopy Abdomen: Abdomen soft, non-tender. Bowel sounds normal. No masses, organomegaly Health maintenance reviewed with patient: Hepatitis B Vaccine(1 of 3 - 19+ 3-dose series) Never done Covid-19 Vaccine( - season) Never done Influenza Vaccine(1) due on 06/06/2024 Cervical Cancer Screening due on 07/11/2024 DTaP,Tdap,Td Vaccine(2 - Td or Tdap) due on 04/19/2026 Hepatitis C Screening Completed HIV Screening Completed HPV Vaccine Aged Out DATA REVIEWED: Most recent labs and imaging results. ASSESSMENT/PLAN: 1. Gastroesophageal reflux disease, unspecified whether esophagitis present - ICD9: 530.81, ICD10: K21.9 (primary diagnosis) - pantoprazole in AM and pepcid before bed. Will check for h-pylori as well. - Discussed lifestyle modifications including losing weight, limiting caffeine, no meals three hours before sleep, and head of bed elevation - H PYLORI IGG AB - CONSULT TO GASTROENTEROLOGY 2. Upper abdominal pain - ICD9: 789.09, ICD10: R10.10 As above - assessment normal - H PYLORI IGG AB - CONSULT TO GASTROENTEROLOGY 3. Sternal pain - ICD9: 786.50, ICD10: R07.89 Improved with improvement of GERD With this knowledge no need for ECHO at this time. 4. Palpitations - ICD9: 785.1, ICD10: R00.2 No concerns on ZIO Possibly anxiety Prescription instructions reviewed with patient as applicable. Potential red flag symptoms discussed with the patient. Reviewed appropriate action plan to take if red flag symptoms occur. Patient agreeable to treatment plan. Darya Quiñnoes APRN.[facility] 06-09-2024 History of Presen t illness Narrative CC: Patient presents with: Recheck: 6 week follow up HPI Aiden French is a 34 year old female who presents today for follow up on chronic palpitaitons and sternal pain. Pepcid restarted to see if upper abdominal and sternal pain resolved and ZIO ordered. ECHO also ordered as she has a grandfather who passed young of unknown heart related concerns but has been denied by insurance. Per patient she spoke to her mom since last visit and her mom said she was tested for whatever the issue was when she was a child and was negative. Has had some improvement in the sternal pain with restarting the pepcid but also forgets to take twice a day regularly. Pain is not as often and not as severe. Still with a lot of heartburn leading to regurgitation and upper abdominal discomfort. Denies vomiting but will burp and acid will be regurgitated into her mouth. Also denies difficulty swallowing but states he throat gets really dry and things sometimes seem to take sometime going down. Denies bowel changes, fever, chills, shortness of breath, edema, chest pressure, cough, wheezing, or change in chronic palpitations. ZIO patch unconcerning. REVIEW OF SYSTEMS See HPI PAST MEDICAL HISTORY No date: Back pain 11/22/2014: Overweight (BMI 25.0-29.9) No past surgical history on file. ALLERGIES Patient has no known allergies. MEDICATIONS famotidine (PEPCID) 20 mg tablet Take 1 tablet by mouth two times a day. sertraline (ZOLOFT) 25 mg tablet Take 1 tablet by mouth once daily. no.167-folic acid-dha 400 mcg- 25 mg chew Take 1 tablet by mouth once daily. multivit,calc,mins/iron/folic (ONE-A-DAY WOMENS FORMULA ORAL) Take by mouth. (Patient not taking: Reported on 05/01/2024) FAMILY HISTORY Problem Relation Age of Onset Asthma Mother Cataract Mother Cataract Maternal Grandmother Cataract Maternal Grandfather other (Heart, brain mass) Maternal Grandfather Breast Cancer Other great grandmother-p Cataract Paternal Grandmother Cataract Paternal Grandfather Social History Tobacco Use Smoking status: Former Current packs/day: 0.50 Average packs/day: 0.5 packs/day for 5.0 years (2.5 ttl pk-yrs) Types: Cigarettes Smokeless tobacco: Never Tobacco comments: vape Vaping Use Vaping status: Former Substance Use Topics Alcohol use: Not Currently Comment: occasionally Drug use: No PHYSICAL EXAM BP 112/78 Pulse 72 Resp 16 Wt 79.8 kg (175 lb 14.8 oz) LMP 03/09/2024 (Exact Date) SpO2 98% BMI 31.16 kg/m General Appearance: well appearing, in no acute distress, alert Pysch: mood and affect broad and appropriate Eyes: conjunctiva pink and moist, no icterus, sclera white, non-injected Lungs: Lungs clear to auscultation. No wheezing, rhonchi, rales. Heart: RRR without murmur, gallop, or rubs. No ectopy Abdomen: Abdomen soft, non-tender. Bowel sounds normal. No masses, organomegaly Health maintenance reviewed with patient: Hepatitis B Vaccine(1 of 3 - 19+ 3-dose series) Never done Covid-19 Vaccine(2022- season) Never done Influenza Vaccine(1) due on 06/06/2024 Cervical Cancer Screening due on 07/11/2024 DTaP,Tdap,Td Vaccine(2 - Td or Tdap) due on 04/19/2026 Hepatitis C Screening Completed HIV Screening Completed HPV Vaccine Aged Out DATA REVIEWED: Most recent labs and imaging results. ASSESSMENT/PLAN: 1. Gastroesophageal reflux disease, unspecified whether esophagitis present - ICD9: 530.81, ICD10: K21.9 (primary diagnosis) - pantoprazole in AM and pepcid before bed. Will check for h-pylori as well. - Discussed lifestyle modifications including losing weight, limiting caffeine, no meals three hours before sleep, and head of bed elevation - H PYLORI IGG AB - CONSULT TO GASTROENTEROLOGY 2. Upper abdominal pain - ICD9: 789.09, ICD10: R10.10 As above - assessment normal - H PYLORI IGG AB - CONSULT TO GASTROENTEROLOGY 3. Sternal pain - ICD9: 786.50, ICD10: R07.89 Improved with improvement of GERD With this knowledge no need for ECHO at this time. 4. Palpitations - ICD9: 785.1, ICD10: R00.2 No concerns on ZIO Possibly anxiety Prescription instructions reviewed with patient as applicable. Potential red flag symptoms discussed with the patient. Reviewed appropriate action plan to take if red flag symptoms occur. Patient agreeable to treatment plan. Darya Quiñones APRN.CNP documented in this encounter [facility] 05-31-2024 Miscellaneous Notes Will discuss further at upcoming appointment. Darya Quiñones APRN.CNP Phoned patient went over notes below from Darya Quiñones [employer] MECH[employer]IC. Patient said she is feeling the same. She has no changes in her symptoms at all. Patient said she called her insurance and was told they want to see heart monitor results first before would ok the ECHO. Denied coverage for Echocardiogram by insurance. How is she feeling? Has she had improvement of symptoms? If not, we can talk further at follow up appointment to send appeal letter. Thank you Darya Quiñones APRN.CNP documented in this encounter [facility] 05-31-2024 Telephone encounter Note Will discuss further at upcoming appointment. Darya Quiñones APRN.CNP [facility] 05-28-2024 Telephone encounter Note Phoned patient went over notes below from Darya Quiñones [employer]CH[employer]. Patient said she is feeling the same. She has no changes in her symptoms at all. Patient said she called her insurance and was told they want to see heart monitor results first before would ok the ECHO. [facility] 05-27-2024 Telephone encounter Note Denied coverage for Echocardiogram by insurance. How is she feeling? Has she had improvement of symptoms? If not, we can talk further at follow up appointment to send appeal letter. Thank you Darya Quiñones APRN.CNP [facility] 05-01-2024 Note HNO ID: [id number] Author: AGUSTINA SPARKS PA Service: ? Author Type: Physician Grinding Room Inspector Type: Progress Notes Filed: 05/01/2024 09:44 Note Text: This note was created using [employer]. Subjective Aiden French is a 33 year old female. HPI 33-year-old female presents for wasp sting to left arm. Patient has never been stung by a wasp in the past. Patient states that she noticed some blistering around the area. She states that the redness has gotten significantly worse in the last 24 hours. Her arm is swollen. She denies any fevers. No numbness or tingling in the arm. No difficulty breathing or swallowing. She is breast-feeding. She has been putting cortisone ointment on it, calamine, without improvement. PAST MEDICAL HISTORY Diagnosis Date Back pain Overweight (BMI 25.0-29.9) 11/22/2014 No past surgical history on file. ALLERGIES Patient has no known allergies. MEDICATIONS triamcinolone (KENALOG) 0.025 % cream Apply to affected area two times a day for 7 days. famotidine (PEPCID) 20 mg tablet Take 1 tablet by mouth two times a day. sertraline (ZOLOFT) 25 mg tablet Take 1 tablet by mouth once daily. no.167-folic acid-dha 400 mcg- 25 mg chew Take 1 tablet by mouth once daily. predniSONE (DELTASONE) 20 mg tablet Take 2 tablets by mouth once daily for 4 days. Take daily with food. cephALEXin (KEFLEX) 500 mg capsule Take 1 capsule by mouth four times daily for 5 days. multivit,calc,mins/iron/folic (ONE-A-DAY WOMENS FORMULA ORAL) Take by mouth. (Patient not taking: Reported on 05/01/2024) FAMILY HISTORY Problem Relation Age of Onset [...] Not Currently Comment: occasionally Drug use: No Review of Systems Constitutional: Negative for chills and fever. HENT: Negative for congestion, ear pain and sore throat. Respiratory: Negative for cough and shortness of breath. Cardiovascular: Negative for chest pain. Gastrointestinal: Negative for diarrhea and vomiting. Skin: Positive for color change and rash. Objective BP 122/90 Pulse 70 Temp 36.7 ?C (98 ?F) Resp 18 Wt 79.1 kg (174 lb 6.1 oz) LMP 03/09/2024 (Exact Date) SpO2 98% BMI 30.89 kg/m? Physical Exam Vitals and nursing note reviewed. Constitutional: General: She is not in acute distress. Appearance: Normal appearance. She is not toxic-appearing. Cardiovascular: Rate and Rhythm: Normal rate and regular rhythm. Pulmonary: Effort: Pulmonary effort is normal. Breath sounds: Normal breath sounds. Skin: General: Skin is warm and dry. Findings: Erythema and rash present. Rash is vesicular. Comments: Patient has multiple small vesicles noted over left upper arm where patient was stung by wasp. She has a large area of surrounding erythema and swelling of the left upper arm/bicep area. Tender to touch. No fluctuance or abscess. No lymphatic streaking. Normal ROM of the arm, shoulder, elbow. Pulses intact left upper extremity. Neurological: Mental Status: She is alert. Assessment and Plan ASSESSMENT/PLAN: 1. Local reaction to bee sting, accidental or unintentional, initial encounter - ICD9: 989.5, E905.3, ICD10: T63.441A -Due to worsening swelling and redness over the past 2 days with no improvement with steroid cream, Rx for prednisone given. Patient is breast-feeding. Advised not to breast-feed for several hours after taking the prednisone. -If redness continues to worsen over the next 24 to 48 hours, may start Keflex. Diagnosis and treatment plan were discussed and questions were answered to the patient's satisfaction. Pt acknowledged understanding of concepts and follow up plan. Specific signs and symptoms that would indicate the need for higher level of care were discussed in detail warranting prompt ER evaluation. BLACK Palomo [facility] 05-01-2024 History of Presen t illness Narrative Images from the original note were not included. This note was created using Ch[employer]qui Bus[employer]. Subjective Aiden French is a 33 year old female. HPI 33-year-old female presents for wasp sting to left arm. Patient has never been stung by a wasp in the past. Patient states that she noticed some blistering around the area. She states that the redness has gotten significantly worse in the last 24 hours. Her arm is swollen. She denies any fevers. No numbness or tingling in the arm. No difficulty breathing or swallowing. She is breast-feeding. She has been putting cortisone ointment on it, calamine, without improvement. PAST MEDICAL HISTORY Diagnosis Date Back pain Overweight (BMI 25.0-29.9) 11/22/2014 No past surgical history on file. ALLERGIES Patient has no known allergies. MEDICATIONS triamcinolone (KENALOG) 0.025 % cream Apply to affected area two times a day for 7 days. famotidine (PEPCID) 20 mg tablet Take 1 tablet by mouth two times a day. sertraline (ZOLOFT) 25 mg tablet Take 1 tablet by mouth once daily. no.167-folic acid-dha 400 mcg- 25 mg chew Take 1 tablet by mouth once daily. predniSONE (DELTASONE) 20 mg tablet Take 2 tablets by mouth once daily for 4 days. Take daily with food. cephALEXin (KEFLEX) 500 mg capsule Take 1 capsule by mouth four times daily for 5 days. multivit,calc,mins/iron/folic (ONE-A-DAY WOMENS FORMULA ORAL) Take by mouth. (Patient not taking: Reported on 05/01/2024) FAMILY HISTORY Problem Relation Age of Onset [...] Not Currently Comment: occasionally Drug use: No Review of Systems Constitutional: Negative for chills and fever. HENT: Negative for congestion, ear pain and sore throat. Respiratory: Negative for cough and shortness of breath. Cardiovascular: Negative for chest pain. Gastrointestinal: Negative for diarrhea and vomiting. Skin: Positive for color change and rash. Objective BP 122/90 Pulse 70 Temp 36.7 C (98 F) Resp 18 Wt 79.1 kg (174 lb 6.1 oz) LMP 03/09/2024 (Exact Date) SpO2 98% BMI 30.89 kg/m Physical Exam Vitals and nursing note reviewed. Constitutional: General: She is not in acute distress. Appearance: Normal appearance. She is not toxic-appearing. Cardiovascular: Rate and Rhythm: Normal rate and regular rhythm. Pulmonary: Effort: Pulmonary effort is normal. Breath sounds: Normal breath sounds. Skin: General: Skin is warm and dry. Findings: Erythema and rash present. Rash is vesicular. Comments: Patient has multiple small vesicles noted over left upper arm where patient was stung by wasp. She has a large area of surrounding erythema and swelling of the left upper arm/bicep area. Tender to touch. No fluctuance or abscess. No lymphatic streaking. Normal ROM of the arm, shoulder, elbow. Pulses intact left upper extremity. Neurological: Mental Status: She is alert. Assessment and Plan ASSESSMENT/PLAN: 1. Local reaction to bee sting, accidental or unintentional, initial encounter - ICD9: 989.5, E905.3, ICD10: T63.441A -Due to worsening swelling and redness over the past 2 days with no improvement with steroid cream, Rx for prednisone given. Patient is breast-feeding. Advised not to breast-feed for several hours after taking the prednisone. -If redness continues to worsen over the next 24 to 48 hours, may start Keflex. Diagnosis and treatment plan were discussed and questions were answered to the patient's satisfaction. Pt acknowledged understanding of concepts and follow up plan. Specific signs and symptoms that would indicate the need for higher level of care were discussed in detail warranting prompt ER evaluation. BLACK Palomo documented in this encounter [facility] 04-30-2024 Note HNO ID: [id number] Author: ABEL THORNTON APRN.[employer] Service: ? Author Type: Nurse Practitioner Type: Progress Notes Filed: 04/30/2024 11:40 Note Text: Subjective Came in with complaints of wasp sting on her left upper arm. Patient says it happened yesterday. Patient says it is red and sore. Patient says it does itch a little. Says it does feel little tingly. Patient denies any other symptoms. Patient denies any difficulty with range of motion. The history is provided by the patient. No deli slicer was used. Review of Systems Constitutional: Negative. Objective Physical Exam Constitutional: Appearance: Normal appearance. Pulmonary: Effort: Pulmonary effort is normal. Skin: Comments: Blue area horan where patient appears to be stung. Red area horan erythema and warmth around the area consistent with inflammatory response. It is blanchable. Neurological: Mental Status: She is alert. PAST MEDICAL HISTORY Diagnosis Date Back pain Overweight (BMI 25.0-29.9) 11/22/2014 No past surgical history on file. ALLERGIES Patient has no known allergies. MEDICATIONS famotidine (PEPCID) 20 mg tablet Take 1 tablet by mouth two times a day. sertraline (ZOLOFT) 25 mg tablet Take 1 tablet by mouth once daily. no.167-folic acid-dha 400 mcg- 25 mg chew Take 1 tablet by mouth once daily. triamcinolone (KENALOG) 0.025 % cream Apply to affected area two times a day for 7 days. multivit,calc,mins/iron/folic (ONE-A-DAY WOMENS FORMULA ORAL) Take by mouth. (Patient not taking: Reported on 04/30/2024) FAMILY HISTORY Problem Relation Age of Onset [...] Not Currently Comment: occasionally Drug use: No ASSESSMENT/PLAN: 1. Itch - ICD9: 698.9, ICD10: L29.9 - TRIAMCINOLONE ACETONIDE 0.025 % TOPICAL CREAM Patient was educated about proper use of medication and supportive therapies. Patient was educated not to put medication on face armpits or private areas. Patient will follow-up if signs and symptoms seem to be changing. Patient was instructed on things to watch for that would mean it changed from inflammatory response to a possible bacterial infection. Patient was okay with this care plan. Abel Thornton APRN.[facility] 04-30-2024 History of Presen t illness Narrative Subjective Came in with complaints of wasp sting on her left upper arm. Patient says it happened yesterday. Patient says it is red and sore. Patient says it does itch a little. Says it does feel little tingly. Patient denies any other symptoms. Patient denies any difficulty with range of motion. The history is provided by the patient. No deli slicer was used. Review of Systems Constitutional: Negative. Objective Physical Exam Constitutional: Appearance: Normal appearance. Pulmonary: Effort: Pulmonary effort is normal. Skin: Comments: Blue area horan where patient appears to be stung. Red area horan erythema and warmth around the area consistent with inflammatory response. It is blanchable. Neurological: Mental Status: She is alert. PAST MEDICAL HISTORY Diagnosis Date Back pain Overweight (BMI 25.0-29.9) 11/22/2014 No past surgical history on file. ALLERGIES Patient has no known allergies. MEDICATIONS famotidine (PEPCID) 20 mg tablet Take 1 tablet by mouth two times a day. sertraline (ZOLOFT) 25 mg tablet Take 1 tablet by mouth once daily. no.167-folic acid-dha 400 mcg- 25 mg chew Take 1 tablet by mouth once daily. triamcinolone (KENALOG) 0.025 % cream Apply to affected area two times a day for 7 days. multivit,calc,mins/iron/folic (ONE-A-DAY WOMENS FORMULA ORAL) Take by mouth. (Patient not taking: Reported on 04/30/2024) FAMILY HISTORY Problem Relation Age of Onset [...] Not Currently Comment: occasionally Drug use: No ASSESSMENT/PLAN: 1. Itch - ICD9: 698.9, ICD10: L29.9 - TRIAMCINOLONE ACETONIDE 0.025 % TOPICAL CREAM Patient was educated about proper use of medication and supportive therapies. Patient was educated not to put medication on face armpits or private areas. Patient will follow-up if signs and symptoms seem to be changing. Patient was instructed on things to watch for that would mean it changed from inflammatory response to a possible bacterial infection. Patient was okay with this care plan. Abel Thornton APRN.MARY documented in this encounter [facility] 04-28-2024 Note HNO ID: [id number] Author: DARYA QUIÑONES APRN.MARY Service: ? Author Type: Nurse Practitioner Type: Progress Notes Filed: 04/28/2024 19:17 Note Text: CC: Patient presents with: Physical: Annual, review medications HPI Aiden French is a 33 year old female who presents today for annual exam but has multiple concerns. Had a baby almost 3 months ago and is still . Has had lower sternum upper abdominal pressure after eating for years but is getting worse. Self resolves after hours but immediately will reoccur with eating or drinking water or taking anything orally. Seems to be getting worse over the last few weeks and is occurring not just with eating or drinking but at random times as well. Seems like food is slow to go down but does not get stuck. Will feel like she has to take a deep breath when relaxing but has no shortness of breath when taking stairs. Also with chronic palpitaitons that occur one day every 1-2 weeks. These occur randomly and are not with any certain activity or position. Can last for a few minutes and have repeated episodes throughout the day. Has had this sicne her 20s and has never been worked up. Was told it was due to her anxiety but had no improvement with anxiety becoming uncontrolled. Grandfather suddnely due to cardiac cause in his 30s but she is unsure what it was. Denies choking, coughing, wheezing, fever, chills, recent infection, syncope, weakness, headaches, N/V/D, or constipation. REVIEW OF SYSTEMS See HPI PAST MEDICAL HISTORY Diagnosis Date Back pain Overweight (BMI 25.0-29.9) 11/22/2014 No past surgical history on file. ALLERGIES Patient has no known allergies. MEDICATIONS sertraline (ZOLOFT) 25 mg tablet Take 1 tablet by mouth once daily. famotidine (PEPCID) 20 mg tablet Take 1 tablet by mouth two times a day. no.167-folic acid-dha 400 mcg- 25 mg chew [...] Not Currently Comment: occasionally Drug use: No PHYSICAL EXAM BP 112/70 Pulse 92 Resp 16 Wt 80.3 kg (177 lb) LMP 03/09/2024 (Exact Date) SpO2 99% BMI 31.35 kg/m? General Appearance: well appearing, in no acute distress, alert Skin: Skin color, texture, turgor normal for age; Eyes: conjunctiva pink and moist, no icterus, sclera white, non-injected Neck: Thyroid normal size and symmetric without palpable nodules, No adenopathy Lymph nodes: No cervical lymphadenopathy and No supraclavicular lymphadenopathy Lungs: Lungs clear to auscultation. No wheezing, rhonchi, rales. Heart: RRR without murmur, gallop, or rubs. No ectopy Abdomen: Abdomen soft, non-tender. Bowel sounds normal. No masses, organomegaly Health maintenance reviewed with patient: Hepatitis B Vaccine(1 of 3 - 19+ 3-dose series) Never done Covid-19 Vaccine(2022- season) Never done Cervical Cancer Screening due on 07/11/2024 Influenza Vaccine(1) due on 06/06/2024 DTaP,Tdap,Td Vaccine(2 - Td or Tdap) due on 04/19/2026 Hepatitis C Screening Completed HIV Screening Completed HPV Vaccine Aged Out DATA REVIEWED: No new labs EKG Interpretation: RHYTHM: Normal sinus rhythm at 62 beats per minute AXIS: Normal axis INTERVALS: Normal MA interval QRS COMPLEX: Normal ST SEGMENT: Normal ST-T segments QT INTERVAL: Normal COMPARED WITH PRIOR: None available ASSESSMENT/PLAN: 1. Sternal pain - ICD9: 786.50, ICD10: R07.89 (primary diagnosis) Probable due to GERD but with family history of early cardiac , will further evaluate. - ECHO - PERFLUTREN LIPID MICROSPHERES 1.1 MG/ML INJECTION IN NS 10 ML - SODIUM CHLORIDE 0.9 % (FLUSH) INJECTION SYRINGE - ECG COMPLETE - COMPLETE BLOOD COUNT AND DIFFERENTIAL - COMPREHENSIVE METABOLIC PANEL - THYROID STIMULATING HORMONE - MAGNESIUM - OUTSIDE VENDOR CARDIAC OUTPATIENT EXTENDED RHYTHM RECORDING (WITHOUT TELEMETRY) 2. Palpitations - ICD9: 785.1, ICD10: R00.2 Cause unknown, needs further evaluated. - ECHO - PERFLUTREN LIPID MICROSPHERES 1.1 MG/ML INJECTION IN NS 10 ML - SODIUM CHLORIDE 0.9 % (FLUSH) INJECTION SYRINGE - ECG COMPLETE - COMPLETE BLOOD COUNT AND DIFFERENTIAL - COMPREHENSIVE METABOLIC PANEL - THYROID STIMULATING HORMONE - MAGNESIUM - OUTSIDE VENDOR CARDIAC OUTPATIENT EXTENDED RHYTHM RECORDING (WITHOUT (more content not included)... [facility] 04-28-2024 History of Presen t illness Narrative CC: Patient presents with: Physical: Annual, review medications HPI Aiden French is a 33 year old female who presents today for annual exam but has multiple concerns. Had a baby almost 3 months ago and is still . Has had lower sternum upper abdominal pressure after eating for years but is getting worse. Self resolves after hours but immediately will reoccur with eating or drinking water or taking anything orally. Seems to be getting worse over the last few weeks and is occurring not just with eating or drinking but at random times as well. Seems like food is slow to go down but does not get stuck. Will feel like she has to take a deep breath when relaxing but has no shortness of breath when taking stairs. Also with chronic palpitaitons that occur one day every 1-2 weeks. These occur randomly and are not with any certain activity or position. Can last for a few minutes and have repeated episodes throughout the day. Has had this sicne her 20s and has never been worked up. Was told it was due to her anxiety but had no improvement with anxiety becoming uncontrolled. Grandfather suddnely due to cardiac cause in his 30s but she is unsure what it was. Denies choking, coughing, wheezing, fever, chills, recent infection, syncope, weakness, headaches, N/V/D, or constipation. REVIEW OF SYSTEMS See HPI PAST MEDICAL HISTORY Diagnosis Date Back pain Overweight (BMI 25.0-29.9) 11/22/2014 No past surgical history on file. ALLERGIES Patient has no known allergies. MEDICATIONS sertraline (ZOLOFT) 25 mg tablet Take 1 tablet by mouth once daily. famotidine (PEPCID) 20 mg tablet Take 1 tablet by mouth two times a day. no.167-folic acid-dha 400 mcg- 25 mg chew [...] Not Currently Comment: occasionally Drug use: No PHYSICAL EXAM BP 112/70 Pulse 92 Resp 16 Wt 80.3 kg (177 lb) LMP 03/09/2024 (Exact Date) SpO2 99% BMI 31.35 kg/m General Appearance: well appearing, in no acute distress, alert Skin: Skin color, texture, turgor normal for age; Eyes: conjunctiva pink and moist, no icterus, sclera white, non-injected Neck: Thyroid normal size and symmetric without palpable nodules, No adenopathy Lymph nodes: No cervical lymphadenopathy and No supraclavicular lymphadenopathy Lungs: Lungs clear to auscultation. No wheezing, rhonchi, rales. Heart: RRR without murmur, gallop, or rubs. No ectopy Abdomen: Abdomen soft, non-tender. Bowel sounds normal. No masses, organomegaly Health maintenance reviewed with patient: Hepatitis B Vaccine(1 of 3 - 19+ 3-dose series) Never done Covid-19 Vaccine( - season) Never done Cervical Cancer Screening due on 07/11/2024 Influenza Vaccine(1) due on 06/06/2024 DTaP,Tdap,Td Vaccine(2 - Td or Tdap) due on 04/19/2026 Hepatitis C Screening Completed HIV Screening Completed HPV Vaccine Aged Out DATA REVIEWED: No new labs EKG Interpretation: RHYTHM: Normal sinus rhythm at 62 beats per minute AXIS: Normal axis INTERVALS: Normal MA interval QRS COMPLEX: Normal ST SEGMENT: Normal ST-T segments QT INTERVAL: Normal COMPARED WITH PRIOR: None available ASSESSMENT/PLAN: 1. Sternal pain - ICD9: 786.50, ICD10: R07.89 (primary diagnosis) Probable due to GERD but with family history of early cardiac , will further evaluate. - ECHO - PERFLUTREN LIPID MICROSPHERES 1.1 MG/ML INJECTION IN NS 10 ML - SODIUM CHLORIDE 0.9 % (FLUSH) INJECTION SYRINGE - ECG COMPLETE - COMPLETE BLOOD COUNT AND DIFFERENTIAL - COMPREHENSIVE METABOLIC PANEL - THYROID STIMULATING HORMONE - MAGNESIUM - OUTSIDE VENDOR CARDIAC OUTPATIENT EXTENDED RHYTHM RECORDING (WITHOUT TELEMETRY) 2. Palpitations - ICD9: 785.1, ICD10: R00.2 Cause unknown, needs further evaluated. - ECHO - PERFLUTREN LIPID MICROSPHERES 1.1 MG/ML INJECTION IN NS 10 ML - SODIUM CHLORIDE 0.9 % (FLUSH) INJECTION SYRINGE - ECG COMPLETE - COMPLETE BLOOD COUNT AND DIFFERENTIAL - COMPREHENSIVE METABOLIC PANEL - THYROID STIMULATING HORMONE - MAGNESIUM - OUTSIDE VENDOR CARDIAC OUTPATIENT EXTENDED RHYTHM RECORDING (WITHOUT TELEMETRY) 3. Family history of early CAD - ICD9: V17.3, ICD10: Z82.49 See #1 - ECHO - PERFLUTREN LIPID MICROSPHERES 1.1 MG/ML INJECTION IN NS 10 ML - SODIUM CHLORIDE 0.9 % (FLUSH) INJECTION SYRINGE - ECG COMPLETE - OUTSIDE VENDOR CARDIAC OUTPATIENT EXTENDED RHYTHM RECORDING (WITHOUT TELEMETRY) 4. Gastroesophageal reflux disease, unspecified whether esophagitis present - ICD9: 530.81, ICD10: K21.9 - Discussed lifestyle modifications including losing weight, limiting caffeine, no meals three hours before sleep, and head of bed elevation Pepcid restarted, Follow up in 4 weeks - if no improvement or worsening of symptoms she will need to see GI Prescription instructions reviewed with patient as applicable. Potential red flag symptoms discussed with the patient. Reviewed appropriate action plan to take if red flag symptoms occur. Patient agreeable to treatment plan. Darya Quiñones APRN.CNP documented in this encounter [facility] 04-28-2024 Note HNO ID: [id number] Author: ROSANNA OMALLEY MD Service: ? Author Type: Physician Type: Procedures Filed: 05/21/2024 16:27 Note Text: Patient Name: Aiden French : 1990 Ordering Provider: DARYA QUIÑONES Indication: R07.89 Other chest pain Type of Monitor: Extended Monitoring-Zio Patch Enrollment Dates: 05/02/2024-05/14/2024 IRHYTHM FINDINGS: Patient had a min HR of 47 bpm, max HR of 139 bpm, and avg HR of 74 bpm. Predominant underlying rhythm was Sinus Rhythm. Isolated SVEs were rare (<1.0%), SVE Couplets were rare (<1.0%), and SVE Triplets were rare (<1.0%). Isolated VEs were rare (<1.0%), and no VE Couplets or VE Triplets were present. [facility] 04-02-2024 Telephone encounter Note Addendum to [place] paperwork completed and faxed to pt's insurance. Lin Ramirez LPN [facility] 04-02-2024 Miscellaneous Notes Addendum to [facility] paperwork completed and faxed to pt's insurance. Lin Ramirez LPN Documentation completed on original packed for leave. If needed can add, GDMA1, back pain M54.9 and situational depression. FMLA to begin at patient requested date and medical leave for 37 weeks. Thanks, Shu Reeves APRN.CNM Please see below message, please advise and I will then contact [facility] and update pt's record. Lin Ramirez LPN Yue from [facility] received faxed information regarding pt. However, she indicates this needs an addendum signed by a physician. In addition to this she needs to know the reason the pt was allocated to be off 3 weeks before the due date. This can be adjusted on original forms scanned and faxed on 01/01/24. Yue phone number is [phone] for questions. Fax on the original fax cover [phone] is confirmed. documented in this encounter [facility] 03-30-2024 Telephone encounter Note Documentation completed on original packed for leave. If needed can add, GDMA1, back pain M54.9 and situational depression. FMLA to begin at patient requested date and medical leave for 37 weeks. Thanks, Shu Reeves APRN.CNM [facility] 03-30-2024 Telephone encounter Note Please see below message, please advise and I will then contact [facility] and update pt's record. Lin Ramirez LPN [facility] 03-30-2024 Telephone encounter Note Yue from [facility] received faxed information regarding pt. However, she indicates this needs an addendum signed by a physician. In addition to this she needs to know the reason the pt was allocated to be off 3 weeks before the due date. This can be adjusted on original forms scanned and faxed on 01/01/24. Yue phone number is [phone] for questions. Fax on the original fax cover [phone] is confirmed. [facility] Work Phone: 03-17-2024 Telephone encounter Note Patient has been identified by name and date of : Yes Patient phones for refill(s): Requested Prescriptions Pending Prescriptions Disp Refills sertraline (ZOLOFT) 25 mg tablet 30 tablet 1 Sig: Take 1 tablet by mouth once daily. Date of last office visit in primary care: 05/13/2023 Date of next office visit in primary care: 04/28/2024 Please advise. Thank you. Odalis Pino. [facility] 03-17-2024 Miscellaneous Notes Patient has been identified by name and date of : Yes Patient phones for refill(s): Requested Prescriptions Pending Prescriptions Disp Refills sertraline (ZOLOFT) 25 mg tablet 30 tablet 1 Sig: Take 1 tablet by mouth once daily. Date of last office visit in primary care: 05/13/2023 Date of next office visit in primary care: 04/28/2024 Please advise. Thank you. Odalis Pino. documented in this encounter [facility] 03-12-2024 History and physical note DATE OF SERVICE: March 12, 2024 PROBLEM: request for sterilization DIAGNOSIS: request for sterilization PAST SURGICAL HISTORY: History reviewed. No pertinent surgical history. PAST MEDICAL HISTORY: PAST MEDICAL HISTORY Diagnosis Date Back pain Overweight (BMI 25.0-29.9) 11/22/2014 SUBJECTIVE: Pt doing well and offers no complaints SOCIAL HISTORY: Social History Tobacco Use Smoking status: Former Packs/day: 0.50 Years: 5.00 Additional pack years: 0.00 Total pack years: 2.50 Types: Cigarettes Smokeless tobacco: Never Tobacco comments: vape Vaping Use Vaping Use: Former Substance Use Topics Alcohol use: Not Currently Comment: occasionally Drug use: No ALLERGIES No Known Allergies Current Outpatient Medications on File Prior to Visit Medication Sig famotidine (PEPCID) 20 mg tablet Take 1 tablet by mouth two times a day. sertraline (ZOLOFT) 25 mg tablet Take 1 tablet by mouth once daily. no.167-folic acid-dha 400 mcg- 25 mg chew Take 1 tablet by mouth once daily. multivit,calc,mins/iron/folic (ONE-A-DAY WOMENS FORMULA ORAL) Take by mouth. No current facility-administered medications on file prior to visit. OBJECTIVE: VITALS: BP 110/70 Wt 77.3 kg (170 lb 6.4 oz) LMP 03/09/2024 (Exact Date) Yes BMI 30.19 kg/m HEENT: Normocephalic, atraumatic, Mucus membranes moist without lesions. SKIN: No lesions. CHEST: No increased respiratory effort. HEART: Regular rate. BREAST: No masses, thickenings, skin changes, nipple discharge or axillary lymphadenopathy. BACK: Nontender. ABDOMEN: Soft, non-tender, non-distended, no masses, no hepatosplenomegaly. PELVIC: External genitalia is normal in appearance and without lesions. Vagina and cervix are normal in appearance on speculum examination. Bimanual pelvic examination were negative for urethral, bladder, or pelvic masses. Uterus normal size and nontender. LOWER EXTREMITIES: There was no pitting edema, no palpable cords and no skin changes. ASSESSMENT: sterilization request PLAN: 1) Discussed r/b/a laparoscopic bilateral salpingectomy. The patient understands this procedure is permanent and irreversible, and there is a risk of regret. The patient is certain she does not desire future . She understands may need to add on LEEP procedure pending colposcopy. The rationale for the proposed surgery was discussed in addition to risks, benefits, and alternatives. General pre- and post-operative care was reviewed. Questions were answered. After discussion, the patient indicated a desire to proceed with the planned surgery. Abelino Kessler DO Medical Decision Making: Problems: Moderate: New problem with uncertain prognosis Risk: Moderate: Decision on minor surgery w/ risk factors Medical Decision Making Level: 4 - Moderate [facility] 03-12-2024 History and physical note DATE OF SERVICE: March 12, 2024 PROBLEM: request for sterilization DIAGNOSIS: request for sterilization PAST SURGICAL HISTORY: History reviewed. No pertinent surgical history. PAST MEDICAL HISTORY: PAST MEDICAL HISTORY Diagnosis Date Back pain Overweight (BMI 25.0-29.9) 11/22/2014 SUBJECTIVE: Pt doing well and offers no complaints SOCIAL HISTORY: Social History Tobacco Use Smoking status: Former Packs/day: 0.50 Years: 5.00 Additional pack years: 0.00 Total pack years: 2.50 Types: Cigarettes Smokeless tobacco: Never Tobacco comments: vape Vaping Use Vaping Use: Former Substance Use Topics Alcohol use: Not Currently Comment: occasionally Drug use: No ALLERGIES No Known Allergies Current Outpatient Medications on File Prior to Visit Medication Sig famotidine (PEPCID) 20 mg tablet Take 1 tablet by mouth two times a day. sertraline (ZOLOFT) 25 mg tablet Take 1 tablet by mouth once daily. no.167-folic acid-dha 400 mcg- 25 mg chew Take 1 tablet by mouth once daily. multivit,calc,mins/iron/folic (ONE-A-DAY WOMENS FORMULA ORAL) Take by mouth. No current facility-administered medications on file prior to visit. OBJECTIVE: VITALS: BP 110/70 Wt 77.3 kg (170 lb 6.4 oz) LMP 03/09/2024 (Exact Date) Yes BMI 30.19 kg/m HEENT: Normocephalic, atraumatic, Mucus membranes moist without lesions. SKIN: No lesions. CHEST: No increased respiratory effort. HEART: Regular rate. BREAST: No masses, thickenings, skin changes, nipple discharge or axillary lymphadenopathy. BACK: Nontender. ABDOMEN: Soft, non-tender, non-distended, no masses, no hepatosplenomegaly. PELVIC: External genitalia is normal in appearance and without lesions. Vagina and cervix are normal in appearance on speculum examination. Bimanual pelvic examination were negative for urethral, bladder, or pelvic masses. Uterus normal size and nontender. LOWER EXTREMITIES: There was no pitting edema, no palpable cords and no skin changes. ASSESSMENT: sterilization request PLAN: 1) Discussed r/b/a laparoscopic bilateral salpingectomy. The patient understands this procedure is permanent and irreversible, and there is a risk of regret. The patient is certain she does not desire future . She understands may need to add on LEEP procedure pending colposcopy. The rationale for the proposed surgery was discussed in addition to risks, benefits, and alternatives. General pre- and post-operative care was reviewed. Questions were answered. After discussion, the patient indicated a desire to proceed with the planned surgery. Abelino Kessler DO Medical Decision Making: Problems: Moderate: New problem with uncertain prognosis Risk: Moderate: Decision on minor surgery w/ risk factors Medical Decision Making Level: 4 - Moderate documented in this encounter [facility] 03-12-2024 History of Presen t illness Narrative Bench Hand Machine offered: Patient declines. VISIT Aiden French is a 33 year old year old here for visit. Delivery Summary: 02/03/2024 Some left labial soreness ROS/ Recovery: Feeding: Breast and bottle feeding problems: Sore nipples Menses since delivery: normal flow, bright red, cramps Menstrual pattern prior to : Regular periods [place] since delivery: Not resumed Depression: denies symptoms of depression. OB Depression and Anxiety Screening- This Encounter (since 03/11/2024) Over the past 2 weeks have you felt down, depressed, or hopeless? Negative Over the past two weeks, have you felt little interest or pleasure in doing things? Negative Feeling nervous, anxious or on edge 0-Not at all Not being able to stop or control worrying 0-Not al all Anxiety Pre-Screening Total (If >/= 3 additional questions will be reviewed) 0 Emotional support: Yes Bowel symptoms: Heartburn, Negative for abdominal discomfort, blood in stools or black stools, and change in bowel habits Abdomen: N/A Bladder symptoms: pain with urination Other issues: None Last Pap: 2022 normal HPV: negative PAST MEDICAL HISTORY Diagnosis Date Back pain [...] Not Currently Comment: occasionally Drug use: No PHYSICAL EXAMINATION: BP 110/70 Wt 170 lb 6.4 oz (77.3kg) LMP 03/09/2024 GENERAL: pleasant, female in no apparent distress HEENT: Normocephalic and atraumatic NECK: full range of motion DERMATOLOGY: Normal, without lesions, non-icteric, and non-hirsute BREAST: soft, non-tender, symmetric, no dominant mass, normal nipple-areolar complex, no lymphadenopathy, and no nipple discharge CHEST: Normal inspiratory effort ABDOMEN: soft, non-tender, and no masses. INCISION: N/A PELVIC: external genitalia normal, normal Bartholin's glands, urethra, Parkway's glands, no vulvar lesions, no cervical lesions, good vaginal support, physiologic discharge present, normal appearing perineal body and perianal region BIMANUAL: uterus normal size, shape and consistency, no adnexal masses, and non-tender NEURO: exam grossly non-focal EXTREMITIES: normal ASSESSMENT AND PLAN: 33 year old status post with normal course. H/o GDM: Schedule 2 hr GTT H/o abnormal pap test: Recommend scheduling colposcopy lucho to be completed prior to tubal ligation. Discussed may need LEEP at time of tubal ligation Request for sterilization: Pre op completed today Contraception plan: tubal ligation Follow up: RTC for colposcopy and 2 hour GTT Abelino Kessler DO documented in this encounter [facility] 02-16-2024 History of Presen t illness Narrative EARLY VISIT Aiden French is a 33 year old here for 2 week visit. Delivery Summary: 02/03/2024 Soreness in lower pelvis that feels MSK to her and not like uterine pain. Light vaginal bleeding and no vaginal discharge. No fevers or chills. Stopped the antibiotics this morning, and feels well. No nausea or vomiting. She states the discomfort she is feeling is very different than when she still had retained placental tissue. She does not think the discomfort she is having related to uterus. ROS: General: Denies any fever or chills Hypertension Screening: Headache? No. Visual Changes? No Epigastric Pain? No Increased Swelling? No Taking any BP medications at home? No If applicable, monitoring BP at home? (If Yes, include results) NA Mood: normal Depression: denies symptoms of depression. OB Depression and Anxiety Screening- This Encounter (since 02/15/2024) Over the past 2 weeks have you felt down, depressed, or hopeless? Negative Over the past two weeks, have you felt little interest or pleasure in doing things? Negative Feeling nervous, anxious or on edge 0-Not at all Not being able to stop or control worrying 1-Several days Anxiety Pre-Screening Total (If >/= 3 additional questions will be reviewed) 1 Feeding: Breast and bottle feeding problems: None Bladder: some pain with urination Bowel symptoms: Negative for abdominal discomfort, blood in stools or black stools and change in bowel habits Abdomen: N/A Bleeding: light flow Bottom and Perineum: No issues Sleep: no sleep concerns and sleeps in bassinet/crib in parent's room, does not feel rested [place] since delivery: Not resumed Emotional support: Yes Exercise: N/A Other issues: None PHYSICAL EXAMINATION: BP 110/78 Wt 165 lb 3.2 oz (74.9 kg) LMP 05/07/2023 (Exact Date) Yes BMI 29.26 kg/m General: pleasant,female in no apparent distress, A&O x 3. Skin warm and intact. Breast: Deferred Abdomen: soft, non-tender, and no masses. She has tenderness over pubic bone. Abdomen is not tender and no uterine tenderness on exam. Non acute /Incision: N/A Pelvic: Deferred Bimanual: Deferred ASSESSMENT AND PLAN: 33 year old status post with normal course. Had in office Ipas procedure for retained placental tissue. She feels better since the Ipas and completing course of antibiotics. Contraception plan: tubal ligation. Reinforced 6-week pelvic rest. Encouraged condom usage should patient deviate. Education: resources provided - see MA/RN note Discussed r/b/a laparoscopic bilateral salpingectomy and surgery sheet completed Pubic bone pain: Patient states it is disruptive and bothersome. Discussed option for pelvic floor PT which she will consider, but she is not interested in scheduling at this time 2 hr GTT ordered for h/o GDM. Follow up: Return to Clinic for 6 week visit and as needed. Will complete pre op at 6 week visit. Abelino Kessler DO documented in this encounter [facility] 02-06-2024 Instructions Desire French RN - 02/06/2024 3:22 PM EDT Information and Instructions: After a Manual Uterine Aspiration (IPAS) Procedure Bleeding Most people have some bleeding after an aspiration procedure. The amount differs for each everyone, ranging from no bleeding to moderate period-like bleeding and lasting for a few days to 2-6 weeks. It is normal to have blood clots when you stand up or use the bathroom during the first few days. It is ok to be as active as you feel ready to be. You may notice more bleeding and cramping during activity. Please call if you are completely soaking through a pad every hour for 2 hours, or passing multiple large clots or larger and larger clots. Cramping Most women have some cramping after the procedure. The amount of discomfort varies, as everyone experiences pain in a different way. Some women find that a heating pad or hot water bottle on the stomach or back helps. If you don t have a heating pad, put some rice into a sock and heat it in the microwave, but beware, it s hot! You may also take ibuprofen (Motrin/ Advil) or naproxen (Aleve). If you can t take either of those medications you may use acetaminophen (Tylenol). Please call if you have severe pain or cramps that are not relieved by the pain medication. Fever Please call if your temperature is 100.4 degrees or higher for more than 2 hours. Fever can be a sign of infection, so call your doctor if you are feeling sick. You may have received a medication called misoprostol, which can cause a fever on the day of your procedure that goes away on it's own and is not concerning. symptoms You may have symptoms such as nausea, breast tenderness, or fatigue that last for a few days after the procedure. You may also notice some nipple discharge or breast swelling. If this occurs, wear a supportive bra and avoid stimulation. You may also use a cold compress. Your test may remain positive for up to 4 weeks. Please call if you have symptoms that last longer than 7 - 10 days. control For most people, it is physically possible (though unlikely) to become in the next 2 - 4 weeks, so it is important to start a control method if you are not planning a right away. Please discuss this with your provider if you have not already chosen a method. If you would like to become soon after this procedure, please discuss this with your doctor. Follow up Most women do not need a follow up appointment. Your doctor may recommend one, or you may choose to schedule one if you have any concerns, problems, or questions. Please do not put anything in your vagina for 1 week (no vaginal intercourse, toys, tampons, or douching). Do not swim or use hot tubs for 1 week. Baths by yourself (do not share water for 2 weeks) and showers are OK. Important Phone Numbers: [facility] Appointments in Copying Machine Repairer ( Early Assessment Clinics) Reanna Zapien [facility] at [phone] [facility] at [phone] [facility] at [phone] After 4:30 PM or on weekends, you may reach the on-call Copying Machine Repairer by calling the clinic where you were seen. This will automatically transfer you to a contracted answering service, who will then page the appropriate provider. Most calls are returned within 15-20 minutes depending on other direct patient care. When to call the doctor: If your temperature is 100.4 degrees or higher for more than 2 hours. If you have heavy bleeding and soak through more than 2 pads in an hour for 2 hours in a row. If you have severe pain or cramps that are not relieved by the pain medication. LOSS RESOURCES Physical recovery from loss from a spontaneous miscarriage, ectopic , D&C, or a D&E may take several weeks. However, emotional recovery can take longer, and is individualized to each person. Many people have different feelings and experiences with loss or termination. Grief is a normal part of the healing process. Taking time to heal both physically and emotionally after a loss is important. Above all, don t blame yourself. Counseling is available to help you cope with your loss. A loss support group might also be a valuable resource to you and your partner. ONLINE RESOURCES Unspoken Grief: an online miscarriage support resource for miscarriage, stillbirth and loss unspokengrief.org A Heartbreaking Choice: support for diagnosis or termination for medical reasons. http://www.ClearStory Data. [employer]/ [facility]: ending a for a abnormality http://www.healthtalkonline.org/ Pregnancy_children/Ending_a_preg nancy_for_fetal_abnormality Ending a Wanted : support for patients and families ending a after or maternal medical diagnosis https://endingawantedpregnancy.c om Gualberto Roxana: one person's story about loss and collected resources. http://www.defendingWebAction.[employer] Autumn Gift: headquarters in [place] but with online support group https://www.[employer].Aeromics/infa lo-liwc-nnpucpd-groups.html LOCAL RESOURCES Love Lives On, [facility] https://my.[facility].org/l ocations/[facility]/gusarita -services/support Tamiko(Families Experiencing Early Loss) [facility] https://consultqd.[facility].org/lcgncljzm-bvjsupuej-jxzeze jkgmq-hudhnvr-sxvaerli-grieving- families/ [facility] - counseling services [phone] or toll free at [phone] [facility] Support Groups (not specific to loss) https://my.[facility].org/p atients/information/bereavement/ support-groups [facility] Counselors with experience with families facing the loss of a baby before . This service may be covered by your insurance. If not, [facility] will not turn anyone away because of inability to pay. or [phone] Jose Meredith, local counselor, not associated with [facility] [phone] Some of our families have recommended Jose Meredith as he specializes in helping families who have had or are facing a loss. This may be covered by your insurance, if not, a sliding scale payment plan is available. BOOKS Our Heartbreaking Choices: Forty-Six Women Share Their Stories of Interrupting a Much-Wanted , By Luly Jacobson Sorrow: Loss-Guidance and Support for You and Your Family, By Shirin Gould and Skinny Leos Unspeakable Losses: Healing from Miscarriage, , and other Loss, By Dolores Atkins Empty Cradle, Broken Heart: Surviving the of your Baby, By Dai Stubbs Empty Arms: Coping with Miscarriage, Stillbirth, and , By Jw Martin I Love You Still: A Memorial Baby Book, By Deb Arizmendi Understanding Your Grief: Ten Essential Touchstones for Finding Hope and Healing Your Heart, By Adarsh Gilmore BOOKS FOR CHILDREN We Were Gonna Have a Baby, But We had an Fernando Instead, By Piedad Al My Sibling Still, By Arcelia Walker The Goodbye Book, By Sixto Laura Something Happened, By Manjula Belle No New Baby, By Lakeisha Hawley The Invisible String, By Jeffrey Demarco Our Baby , by Hetal Culp (two books, one for surgical termination and one for induction of labor) documented in this encounter [facility] 02-06-2024 History of Presen t illness Narrative I was called and notified of the patient having retained products of conception with fever, no bleeding. Pt offered In office IPAS vs Suction D&C. Pt was clinically stable and opted for In office IPAS. I counseled the patient on risks and benefits. pt understands she will need to be on antibiotics after procedure due to endometritis. UNIVERSAL PROTOCOL / SAFETY CHECKLIST Procedure to be Performed: Manual evacuation of uterus, IPAS Sign In: A Moment of CARE was completed. Personnel directly involved with the procedure wore the appropriate PPE (Personal Protective Equipment). Patient/Surrogate Stated/Verified: PATIENT VERIFIED(optional for EMERGENT procedures): Patient name, Date of , Relevant allergies, and The intended procedure Time Out Communication: Intended patient and procedure match the source documents. Consent documented and matches the intended procedure. Sign Out: SIGN OUT (optional for EMERGENT procedures): All specimen containers correctly labeled. Procedure note: Speculum was placed in the vagina. After prepping the cervix with betadine paracervical block was performed using 10cc of 1% lidocaine with 1:100,000 epi. Using sterile technique, the Manual Vacuum Aspiration device with size 9mm cannula was inserted into the uterus and contents were evacuated. Post-procedure vital signs were obtained and stable Patient tolerated procedure well. PLAN: Patient was advised to observe for signs and symptoms of infection including but not limited to fever, malodorous vaginal discharge and/or pain. Bleeding expectations were reviewed. Follow up: as scheduled Friday02/09/24 AUGMENTIN BID X 10 DAYS ORDERED Manuela Bazzi MD Pre Procedure Assessment: Aiden French is a 33 year old here for an APURVA procedure. Patient's last menstrual period was Patient's last menstrual period was 05/07/2023 (exact date). (approximate). Reason for procedure: Incomplete /Retained products Anxiolytic Checklist Has ride home? Yes Current use of prescribed or non-prescribed opioids or benzos: No Medications: Provided by office:Toradol 60 mg IM, see AMANDO Blood Type: A Hemoglobin: Hemoglobin Date Value Ref Range Status 10/23/2023 11.8 11.5 - 15.5 g/dL Final Rhophylac Administered:No Procedure end time: 3:35 pm Post Procedure Assessment: Time of first post-procedure assessment: 3:37 pm Vitals: BP 112/66 HR 88 SpO2 96 RR 12 Bleeding:Light Pain ratin Time of second post-procedure assessment: 3:52 pm Vitals: BP 110/60 HR 93 SpO2 96 RR 14 Bleeding:Light Pain Ratin Desire French RN ; documented in this encounter [facility] 02-06-2024 History of Presen t illness Narrative Aiden French is a 33 year old female who is 3 days post presents for problem visit of abdominal pain, fever, chills and malaise. Reports she has not felt well since being home. Temperature reached 102. F last night. Lochia is mild and no odor. Lower pelvic / abdomen in constant pain. REVIEW OF SYSTEMS Abdomen: PAIN Bladder: No dysuria, gross hematuria, urinary frequency, urinary urgency, or incontinence. Breast: currently engorged- . Expanded ROS: N/A Allergies and current medication updated:Yes EXAM: BP 110/66 Temp 99.6 Wt 169 lb (76.7kg) LMP 05/07/2023 GENERAL: in pain, female in mild distress HEENT: Normocephalic and atraumatic ABDOMEN- Tender with mild palpation Bedside TAUS- confirms 4cm area of retained placenta LMathieu Ng to room for verification ASSESSMENT/PLAN: 1. Retained placenta without hemorrhage, condition or complication - ICD9: 667.04, ICD10: O73.0 - Discussed above findings with Dr. Duckworth and orders received - IPAS to be completed in office - Discussed with patient and who agree with plan of care - Pre procedure medications ordered Sarina Montoya APRN.CNM documented in this encounter [facility] 02-04-2024 Discharge summary Note Date/Time February 04, 2024 8:40am [facility] Medical Records Department [address] [place] [id number] Discharge Summary 02/04/24 0838 MR#: [id number] Acct: [id number] Name: AIDEN FRENCH Rep #:[id number] : 1990 33 From: Sarina Montoya CNM PCP: Dr. Kishor Hernandez MD Status:ADM I N Location: [id number] Providers Date of Admission: 02/02/24 Primary Care Physician: Dr. Kishor Hernandez MD Reason For Visit: VAG Diagnosis Discharge Diagnosis (1) Vaginal delivery: Status: Acute Code(s): O80 - Encounter for full-term uncomplicated delivery (2) Care and examination of lactating mother: Status: Acute Code(s): Z39.1 - Encounter for care and examination of lactating mother Medications at Discharge Home Medications docosahexaenoic acid 200 mg capsule ( DHA) mg PO DAILY 08/07/23 sertraline 25 mg tablet 25 mg PO DAILY anxiety depr 08/07/23 Hospital Course Operations None Procedures None Summary of Care Provided Minutes Spent on Discharge: 15 Hospital Course: Patient had . Hospital course was uneventful. Physical Exam Narrative Patient seen at bedside. infant independently. Denies pain. Ambulating and voiding without difficulty. Desires discharge home today. Const alert and no apparent distress General Appearance: cooperative and comfortable Exam Limitations: no limitations HEENT normocephalic Eyes General Eye: normal appearance of both eyes Neck full ROM General: normal visual inspection Chest Chest: symmetrical chest wall rise Resp normal respiratory effort and normal air movement Effort and Inspection: symmetric chest movement Auscultation: clear to auscultation bilaterally Cardio regular rate and regular rhythm GI normal to inspection, nondistended, normoactive bowel sounds Back/Spine normal ROM Extremity full ROM and no calf tenderness General Extremity: normal exam except as noted Skin no rashes or lesions noted Neuro CN's II-XII intact bilaterally Psych mental status grossly normal Weight / BMI Weight Weight: 176 lb 2.389 oz Body Mass Index (BMI) 34.4 ABG / Lab / Microbiology Data 02/04/24 05:28 Laboratory: Laboratory Results - last 24 hr 02/02/24 22:20: Blood Type A POSITIVE, Antibody Screen NEGATIVE 02/04/24 05:28: WBC 20.8 H, RBC 3.88 L, Hgb 11.7 L, Hct 35.1 L, MCV 90.5, MCH 30.2, MCHC 33.3, RDW Std Deviation 46.1 H, RDW Coeff of Jamil 14.1, Plt Count 333,MPV 9.7, Immature Gran % (Auto) 1.200 H, Neut % (Auto) 67.2, Lymph % (Auto) 22.4, Hughes % (Auto) 6.6, Eos % (Auto) 1.9, Baso % (Auto) 0.7, Absolute Neuts (auto) 14.0 H, Absolute Lymphs (auto) 4.67 H, Nucleated RBC % 0, Differential Comment SCANNED Meaningful Use Info Meaningful Use Meaningful Use Diagnoses (Choose all that apply): None applicable Ischemic Stroke Statin Dosing Therapy Reference: STATIN DOSE THERAPY REFERENCE: * Patients > 75 years receive moderate or high dose statin therapy. * Patients 75 years or YOUNGER should receive HIGH intensity statin dose unless contraindicated. You will be required to document reason for non-treatment if statin daily dose does not meet guidelines. HIGH DOSE STATIN THERAPY DAILY Atorvastatin > than or = to 40 mg Rosuvastatin > than or = to 20 mg Amlodipine + Atorvastatin > than or = to 2.5/40 mg Ezetimibe + Simvastatin 10/80 mg Simvastatin 80mg Discharge Plan Admission Admit Date/Time: 02/02/24 22:07 Primary Reason for Your Visit: Labor and Delivery Attending Provider: Shu Reeves Primary Care Provider: Kishor Hernandez Discharge Orders/Prescriptions Prescriptions: Continued sertraline 25 mg tablet 25 mg PO DAILY Patient Comments: take 1 tablet by mouth once daily OKAY TO START WITH 1/2 TABLET D... (REFER TO PRESCRIPTION NOTES). DHA 200 mg capsule PO DAILY Discontinued ondansetron HCl 4 mg tablet 4 mg Patient Comments: take 1 tablet by mouth every 8 hours if needed for nausea and vomiting Referrals / Follow Up: Kishor Hernandez MD [Primary Care Provider] - Disposition Disposition (needs filled in before D/C Order can be placed): Home, Self Care 02/04/24 0841 <Electronically signed by Sarina Montoya CNM> Cosigner Signature (if applicable): CC: MARINO Montoya; Dr. Kishor Hernandez MD~ Signed [facility] Work Phone: [phone] 290-394805-01-2024 [facility] Medical Records Department [address] [place] [address] Discharge Summary 02/04/24 0838 MR#: [id number] Acct: [id number] Name: AIDEN FRENCH Rep #: [id number] : 1990 33 From: Sarina Montoya CNM PCP: Dr. Kishor Hernandez MD Status:ADM IN Location: [id number] Providers Date of Admission: 02/02/24 Primary Care Physician: Dr. Kishor Hernandez MD Reason For Visit: VAG Diagnosis Discharge Diagnosis (1) Vaginal delivery: Status: Acute Code(s): O80 - Encounter for full-term uncomplicated delivery (2) Care and examination of lactating mother: Status: Acute Code(s): Z39.1 - Encounter for care and examination of lactating mother Medications at Discharge Home Medications docosahexaenoic acid 200 mg capsule ( DHA) mg PO DAILY 08/07/23 sertraline 25 mg tablet 25 mg PO DAILY anxiety depr 08/07/23 Hospital Course Operations None Procedures None Summary of Care Provided Minutes Spent on Discharge: 15 Hospital Course: Patient had . Hospital course was uneventful. Physical Exam Narrative Patient seen at bedside. independently. Denies pain. Ambulating and voiding without difficulty. Desires discharge home today. Const alert and no apparent distress General Appearance: cooperative and comfortable Exam Limitations: no limitations HEENT normocephalic Eyes General Eye: normal appearance of both eyes Neck full ROM General: normal visual inspection Chest Chest: symmetrical chest wall rise Resp normal respiratory effort and normal air movement Effort and Inspection: symmetric chest movement Auscultation: clear to auscultation bilaterally Cardio regular rate and regular rhythm GI normal to inspection, nondistended, normoactive bowel sounds Back/Spine normal ROM Extremity full ROM and no calf tenderness General Extremity: normal exam except as noted Skin no rashes or lesions noted Neuro CN's II-XII intact bilaterally Psych mental status grossly normal Weight / BMI Weight Weight: 176 lb 2.389 oz Body Mass Index (BMI) 34.4 ABG / Lab / Microbiology Data 02/04/24 05:28 Laboratory: Laboratory Results - last 24 hr 02/02/24 22:20: Blood Type A POSITIVE, Antibody Screen NEGATIVE 02/04/24 05:28: WBC 20.8 H, RBC 3.88 L, Hgb 11.7 L, Hct 35.1 L, MCV 90.5, MCH 30.2, MCHC 33.3, RDW Std Deviation 46.1 H, RDW Coeff of Jamil 14.1, Plt Count 333, MPV 9.7, Immature Gran % (Auto) 1.200 H, Neut % (Auto) 67.2, Lymph % (Auto) 22.4, Hughes % (Auto) 6.6, Eos % (Auto) 1.9, Baso % (Auto) 0.7, Absolute Neuts (auto) 14.0 H, Absolute Lymphs (auto) 4.67 H, Nucleated RBC % 0, Differential Comment SCANNED Meaningful Use Info Meaningful Use Meaningful Use Diagnoses (Choose all that apply): None applicable Ischemic Stroke Statin Dosing Therapy Reference: STATIN DOSE THERAPY REFERENCE: * Patients > 75 years receive moderate or high dose statin therapy. * Patients 75 years or YOUNGER should receive HIGH intensity statin dose unless contraindicated. You will be required to document reason for non-treatment if statin daily dose does not meet guidelines. HIGH DOSE STATIN THERAPY DAILY Atorvastatin > than or = to 40 mg Rosuvastatin > than or = to 20 mg Amlodipine + Atorvastatin > than or = to 2.5/40 mg Ezetimibe + Simvastatin 10/80 mg Simvastatin 80mg Discharge Plan Admission Admit Date/Time: 02/02/24 22:07 Primary Reason for Your Visit: Labor and Delivery Attending Provider: Shu Reeves Primary Care Provider: Kishor Hernandez Discharge Orders/Prescriptions Prescriptions: Continued sertraline 25 mg tablet 25 mg PO DAILY Patient Comments: take 1 tablet by mouth once daily OKAY TO START WITH 1/2 TABLET D... (REFER TO PRESCRIPTION NOTES). DHA 200 mg capsule PO DAILY Discontinued ondansetron HCl 4 mg tablet 4 mg Patient Comments: take 1 tablet by mouth every 8 hours if needed for nausea and vomiting Referrals / Follow Up: Kishor Hernandez MD [Primary Care Provider] - Disposition Disposition (needs filled in before D/C Order can be placed): Home, Self Care 02/04/24 0841 Cosigner Signature (if applicable): CC: MARINO Montoya; Dr. Kishor Hernandez MD [facility] History of Present illness Narrative * Gwendolyn Cote RN - 02/03/2024 9:35 AM EDT Patient delivered via by Christianne on 02/03/24 at [facility]. See OB history. Gwendolyn Cote RN [facility] History and physical note Author Shu Reeves [facility] February 03, 2024 3:10am Note Date/Time February 03, 2024 3:0 2am [facility] Medical Records Department [address] [place] [address] H&P Exam - STRIP POLISHER 02/03/24 0301 MR#: [id number] Acct: [id number] Name: AIDEN FRENCH Rep #:[id number] : 1990 33 From: Shu GRAHAM PCP: Dr. Kishor Hernandez MD Status:ADM I N Location: CU475-0 HPI - General General Date of Admission: 02/02/24 HPI Narrative AIDEN FRENCH, is a 33 F who presents CHAYITO: PFSH PFS Medical History (Updated 02/03/24 @ 03:05 by Shu Reeves CNM) Anxiety Depression Gestational diabetes Infertility Ovarian cyst depression hemorrhage Home Medications docosahexaenoic acid 200 mg capsule ( DHA) mg PO DAILY 08/07/23 [History Last Taken Unknown] ondansetron HCl 4 mg tablet 4 mg nausea 08/07/23 [History Last Taken Unknown] sertraline 25 mg tablet 25 mg PO DAILY anxiety depr 08/07/23 [History Last Taken 02/01/24] Allergy/AdvReac Type Severity Reaction Status Date / Time No Known Allergies Allergy Verified 02/02/24 21:50 Social History Smoking Status: Former smoker substance use type: does not use History Elective abortions Hx Para 2 Spontaneous abortions Hx # Term Pregnancies Ectopic pregnancies Hx # Pregnancies Multiple births # of living children ROS Constitutional Constitutional: Reports systems reviewed and no addt'l complaints, except as documented; Denies headache(s) Eyes Eyes: Denies acute decrease in peripheral vision, blurry vision or change in vision ENT HEENT: Reports systems reviewed and no addt'l complaints, except as documented Cardiovascular Cardiovascular: Denies chest pain or dizziness Respiratory/Chest Respiratory/Chest: Denies cough, dyspnea, dyspnea on exertion, shortness of breath at rest or shortness of breath with exertion Gastrointestinal Gastrointestinal: Denies abdominal pain, diarrhea, nausea or vomiting Genitourinary Genitourinary: Denies abdominal discomfort Musculoskeletal Musculoskeletal: Denies limited range of motion Integumentary Integumentary: Reports systems reviewed and no addt'l complaints, except as documented Neurologic Neurologic: Reports systems reviewed and no addt'l complaints, except as documented Psychiatric Psychiatric: Reports systems reviewed and no addt'l complaints, except as documented Endocrine Endocrinology: Reports systems reviewed and no addt'l complaints, except as documented Hematologic/Lymphatic Hematologic/Lymphatic: Reports systems reviewed and no addt'l complaints, exceptas documented Allergic/Immunologic Allergic/Immunologic: Reports systems reviewed and no addt'l complaints, except as documented Vital Signs Vital Signs Vital Signs: 02/02/24 21:56 02/02/24 21:56 02/02/24 21:56 Temperature Temperature Source Temporal Pulse Rate 90 Respiratory Rate Blood Pressure 114/67 BP Systolic 114 BP Diastolic 67 Pulse Ox 02/02/24 21:56 02/02/24 21:56 02/02/24 21:56 Temperature 99.4 F H Temperature Source Pulse Rate Respiratory Rate 16 Blood Pressure BP Systolic BP Diastolic Pulse Ox 99 02/02/24 23:14 02/02/24 23:14 02/02/24 23:14 Temperature Temperature Source Pulse Rate 90 109 H Respiratory Rate Blood Pressure 126/80 H BP Systolic 126 BP Diastolic 80 Pulse Ox 02/02/24 23:14 02/02/24 23:14 02/02/24 23:14 Temperature Temperature Source Temporal Pulse Rate 103 H Respiratory Rate Blood Pressure BP Systolic BP Diastolic Pulse Ox 97 02/02/24 23:14 02/02/24 23:14 02/02/24 23:14 Temperature 98.5 F Temperature Source Pulse Rate Respiratory Rate 18 Blood Pressure BP Systolic BP Diastolic Pulse Ox 97 02/02/24 23:58 02/02/24 23:58 02/02/24 23:58 Temperature Temperature Source Temporal Pulse Rate 104 H Respiratory Rate Blood Pressure 117/68 BP Systolic 117 BP Diastolic 68 Pulse Ox 02/02/24 23:58 02/02/24 23:58 02/02/24 23:58 Temperature 98.0 F Temperature Source Pulse Rate Respiratory Rate 18 Blood Pressure BP Systolic BP Diastolic Pulse Ox 97 02/03/24 00:15 02/03/24 00:15 02/03/24 00:20 Temperature Temperature Source Pulse Rate 110 H 83 Respiratory Rate Blood Pressure BP Systolic BP Diastolic Pulse Ox 97 02/03/24 00:20 02/03/24 00:25 02/03/24 00:25 Temperature Temperature Source Pulse Rate 92 Respiratory Rate Blood Pressure BP Systolic BP Diastolic Pulse Ox 98 98 02/03/24 00:30 02/03/24 00:30 02/03/24 01:14 Temperature Temperature Source Pulse Rate 87 Respiratory Rate Blood Pressure 120/76 BP Systolic 120 BP Diastolic 76 Pulse Ox 98 02/03/24 01:14 02/03/24 01:14 02/03/24 01:44 Temperature Temperature Source Pulse Rate 78 104 H Respiratory Rate Blood Pressure BP Systolic BP Diastolic Pulse Ox 94 02/03/24 01:44 02/03/24 01:46 02/03/24 01:46 Temperature Temperature Source Pulse Rate 93 Respiratory Rate Blood Pressure 120/71 BP Systolic 120 BP Diastolic 71 Pulse Ox 98 02/03/24 01:49 02/03/24 01:49 02/03/24 01:50 Temperature Temperature Source Pulse Rate 117 H 122 H Respiratory Rate Blood Pressure BP Systolic BP Diastolic Pulse Ox 98 02/03/24 01:50 02/03/24 01:54 02/03/24 01:54 Temperature Temperature Source Pulse Rate 107 H Respiratory Rate Blood Pressure BP Systolic BP Diastolic Pulse Ox 89 97 02/03/24 01:57 02/03/24 01:57 02/03/24 01:59 Temperature Temperature Source Pulse Rate 109 H 102 H Respiratory Rate Blood Pressure 137/97 H BP Systolic 137 BP Diastolic 97 Pulse Ox 02/03/24 01:59 02/03/24 02:03 02/03/24 02:03 Temperature Temperature Source Pulse Rate 106 H Respiratory Rate Blood Pressure 114/57 L BP Systolic 114 BP Diastolic 57 Pulse Ox 100 02/03/24 02:04 02/03/24 02:04 02/03/24 02:06 Temperature Temperature Source Pulse Rate 98 Respiratory Rate Blood Pressure 118/60 BP Systolic 118 BP Diastolic 60 Pulse Ox 99 02/03/24 02:06 02/03/24 02:09 02/03/24 02:09 Temperature Temperature Source Pulse Rate 102 H 101 H Respiratory Rate Blood Pressure BP Systolic BP Diastolic Pulse Ox 100 02/03/24 02:11 02/03/24 02:11 02/03/24 02:14 Temperature Temperature Source Pulse Rate 88 87 Respiratory Rate Blood Pressure 103/51 L BP Systolic 103 BP Diastolic 51 Pulse Ox 02/03/24 02:14 02/03/24 02:21 Temperature Temperature Source Pulse Rate Respiratory Rate Blood Pressure 136/63 H BP Systolic 136 BP Diastolic 63 Pulse Ox 100 Weight Weight: 176 lb 2.389 oz Body Mass Index (BMI) 34.4 Physical Exam Const alert and oriented x3 General Appearance: cooperative Orientation / Consciousness: awake, oriented to person, oriented to place and oriented to time Exam Limitations: no limitations HEENT normocephalic Head and Scalp: normal to inspection, normocephalic and atraumatic Face and Sinus: normal facial exam Eyes General Eye: normal appearance of both eyes Neck full ROM Chest Chest: symmetrical chest wall rise Resp normal respiratory effort and normal air movement Auscultation: clear to auscultation bilaterally Cardio regular rate, regular rhythm, S1 normal heart sound, S2 normal heart sound, no murmurs, no rub, no gallops and no clicks GI normal to inspection, nondistended, normoactive bowel sounds and non-tender appearance of the vagina normal Bladder / Kidney Exam: no CVA tenderness Manual OB Exam: estimated gestational size appropriate, presentation cephalic, dilated 4, effaced 60, station -2 and other srom, clear fluid Back/Spine normal ROM Extremity normal to inspection and full ROM Skin no rashes or lesions noted Neuro oriented x3, CN's II-XII intact bilaterally and moves all extremities Sensorium / Orientation: awake, alert and oriented to person Motor Exam: clonus absent Deep Tendon Reflexes: Rt Patellar (L4): 2+ and Lt Patellar (L4): 2+ Labs Labs Labs: Blood Type Pending Antibody Screen Pending Hct 35.5 % (37-47) L Hgb 12.0 g/dL (12.0-15.0) Syphilis Total Ab Non-reactive Hep Bs Antigen Negative (Negative) Hepatitis C Ab (EIA) <0.1 s/co ratio (0.0-0.9) HIV 1&2 Antibody Non-Reactive (Nonreactive) GBS negative Rubella immune Assessment & Plan (1) Active labor at term: (2) SROM (spontaneous rupture of membranes): (3) GDM, class A1: (4) History of hemorrhage: (5) Depression: (6) Anxiety: (7) History of depression: PLAN: Plan 1) Admit to labor and delivery 2) ROM Plus positive 3) Routine labs 4) Continuous EFM 5) Pain management upon request 6) GBS negative 7) Dr.Russell mosqueda physician, notified of patient status and of above assessment and plan 02/03/24 0310 <Electronically signed by Shu Reeves CNM> Cosigner Signature (if applicable): CC: MARINO Reeves; Dr. Kishor Hernandez MD~ Signed [facility] Work Phone: 1(437) 734-478104-30-2024 Progress note Author Shu Reeves [facility] February 03, 2024 3:06am Note Date/Time February 03, 2024 3:0 6am [facility] Medical Records Department [address] [place] [address] Progress Note - OBGYN 02/03/24 0301 MR#: [id number] Acct: [id number] Name: AIEDN FRENCH Rep #:[id number] : 1990 33 From: Shu GRAHAM PCP: Dr. Kishor Hernandez MD Status:ADM I N Location: [place] [address] Subjective Subjective Epidural placed and prolonged heart rate deceleration. Taken back to OR and called to hospital. heart rate recovery. Epidural effective. Objective Data Objective Data Vital Signs: Vital Signs Temp Pulse Resp BP Pulse Ox 98.0 F 87 18 136/63 H 100 02/02/24 23:58 02/03/24 02:14 02/02/24 23:58 02/03/24 02:21 02/03/24 02:14 Weight: 176 lb 2.389 oz Body Mass Index (BMI) 34.4 Intake & Output: Intake and Output for Last 24 Hours 02/01/24 02/02/24 02/03/24 23:59 23:59 23:59 Output Total 100 / 100 Balance -100 / -100 Lab / Micro Data 02/02/24 22:20 Labs: Laboratory Results - last 24 hr 02/02/24 22:05: Vag Amniotic Fld Detect POSITIVE H 02/02/24 22:20: WBC 15.7 H, RBC 4.04 L, Hgb 12.0, Hct 35.5 L, MCV 87.9, MCH 29.7, MCHC 33.8, RDW Std Deviation 43.9, RDW Coeff of Jamil 13.7, Plt Count 375, MPV 10.1, Immature Gran % (Auto) 1.700 H, Neut % (Auto) 68.0, Lymph % (Auto) 19.3, Hughes % (Auto) 8.0, Eos % (Auto) 2.4, Baso % (Auto) 0.6, Absolute Neuts (auto) 10.7 H, Absolute Lymphs (auto) 3.03, Nucleated RBC % 0, Syphilis Total AbNon-reactive 02/02/24 22:26: POC Glucose 123 H 02/02/24 23:33: POC Glucose 113 H 02/03/24 00:41: POC Glucose 100 Physical Exam Manual OB Exam: presentation cephalic, dilated 7cm, effaced 90 and station-1 NST FHR Rate Baby A Baseline: 130 Variability:: Minimal Accelerations:: None Decelerations:: Variable FHR Category:: Category II Uterine Activity:: every 2-3 minutes strong Assessment & Plan (1) Active labor at term: (2) SROM (spontaneous rupture of membranes): (3) GDM, class A1: (4) History of hemorrhage: (5) History of depression: (6) Anxiety: (7) Depression: PLAN: Plan 1) [facility], notified of patient status and of above assessment and plan. Ok to proceed with continued labor after recovery 2) Labor progressing, continue with expectant management 3) category 2 FHT, positional changes 02/03/24 0306 <Electronically signed by Shu Reeves CNM> Cosigner Signature (if applicable): CC: ~ Signed [facility] Work Phone: 1(462) 717-113004-30-2024 Procedure [facility] 01-30-2024 Note Indication Evaluation of growth Gestational diabetes Impression REMOTE READ 1. Single, live, intrauterine . 2. Estimated weight is 3480g, 67%ile 3. Amniotic fluid is normal amount. 4. The placenta is anterior. 5. Normal limited anatomy as detailed below. Recommendations Growth in one month Maternal Assessment Height 160 cm Height (ft) 5 ft Height (in) 3 in Weight 80 kg Weight (lb) 176 lb BMI 31.18 kg/m Physical Exam Initial weight (lb) 153 lb Initial BMI 27.10 kg/m Method Transabdominal ultrasound examination Russo . Number of fetuses: 1 Dating LMP on: 05/07/2023 GA by LMP 38 w + 2 d CHAYITO by LMP: 02/11/2024 GA by prior assessment 38 w + 2 d CHAYITO by prior assessment: 02/11/2024 Ultrasound examination on: 01/30/2024 GA by U/S based upon: AC, BPD, Femur, HC GA by U/S 37 w + 0 d CHAYITO by U/S: 02/20/2024 Assigned: based on stated CHAYITO, selected on 12/10/2023 Assigned GA 38 w + 2 d Assigned CHAYITO: 02/11/2024 General Evaluation Cardiac activity present. FHR 135 bpm. movements: present. Presentation: cephalic Placenta: Placental site: anterior Umbilical cord: suboptimal insertion, 3 vessel cord Amniotic fluid: Amount of AF: normal amount. MVP 3.6 cm. ANALY 9.1 cm. Q1 3.6 cm, Q2 1.8 cm, Q3 2.9 cm, Q4 0.9 cm Growth Overview Exam date GA BPD (mm) HC (mm) AC (mm) FL (mm) HL (mm) EFW (g) 09/23/2023 19w 6d 47.7 73% 178.3 63% 159 81% 32.7 76% 32.4 87% 363 83% 12/10/2023 31w 0d 82.3 92% 292.1 58% 284.9 86% 58.8 47% 1859 68% 01/01/2024 34w 1d 87.3 79% 306.5 33% 329.1 98% 64.3 37% 2639 77% 01/30/2024 38w 2d 91.4 43% 310.8 4% 368 99% 71.3 46% 3480 67% Biometry Standard BPD 91.4 mm 37w 1d 43% Hadlock OFD 104.6 mm 30w 6d 2% Nicolaides HC 310.8 mm 33w 6d 4% Latha AC 368.0 mm 40w 5d 99% Hadlock Femur 71.3 mm 36w 0d 46% Latha EFW 3,480 g 39w 2d 67% Hadlock EFW (lb) 7 lb EFW (oz) 11 oz EFW by: Hadlock (HC-AC-FL) Extended Dental Financial Coordinator 3.9 mm Extremities / Bony Struc FL / HC 0.23 Other Structures FHR 135 bpm Anatomy Lateral ventricles: normal Cavum septi pellucidi: normal Cerebellum: normal Cisterna magna: normal 4-chamber view: normal RVOT view: suboptimal LVOT view: suboptimal 3-vessel view: suboptimal Heart / Thorax Situs: situs solitus (normal) Aortic arch view: normal Diaphragm: normal Stomach: normal Kidneys: normal Bladder: normal Cervical spine: normal Thoracic spine: normal Lumbar spine: normal Sacral spine: normal sex: male Wants to know sex: yes Maternal Structures Ovaries / Tubes / Adnexa Rt ovary: Not visualized Lt ovary: Not visualized Performed By: Rhonda Headley RDMS Read By: Risa Barillas M.D.MATERNAL [id number] Progress note* Quick Notes - Abelino Kessler MD - 01/30/2024 1:44 PM EDT SW- pt doing well. Some irregular ctx's. No lof, vb. Good FM. PE: Gen- NAD, well appearing Abd- Soft, gravid, NT Ext- No edema See flowsheet A/p 38 wk gestation - A1GDM: BG log reviewed and blood sugars well controlled with diet. Had ultrasound today and finalreport pending. Discussed r/b/a induction of labor and patient declines scheduling at this time. She strongly desires spontaneous labor and states her first induction was difficult for her. Membrane sweep performed today after discussion of r/b/a. Reviewed risks with GDM. Patient desires visit early next week, and another membrane sweep if still . She would like to schedule an induction at next visit as she would prefer spontaneous labor but does not wish to go to 41 week gestation Abelino Kessler DO [facility]04-26-2024 Miscellaneous Notes* Quick Notes - Abelino Kessler MD - 01/30/2024 1:44 PM EDT SW- pt doing well. Some irregular ctx's. No lof, vb. Good FM. PE: Gen- NAD, well appearing Abd- Soft, gravid, NT Ext- No edema See flowsheet A/p 38 wk gestation - A1GDM: BG log reviewed and blood sugars well controlled with diet. Had ultrasound today and finalreport pending. Discussed r/b/a induction of labor and patient declines scheduling at this time. She strongly desires spontaneous labor and states her first induction was difficult for her. Membrane sweep performed today after discussion of r/b/a. Reviewed risks with GDM. Patient desires visit early next week, and another membrane sweep if still . She would like to schedule an induction at next visit as she would prefer spontaneous labor but does not wish to go to 41 week gestation Abelino Kessler DO documented in [facility] encounter[facility] Instructions* Patient Instructions* Mame Calvin MA - 01/30/2024 1:29 PM EDT SEQUENTIAL SCREENINGS The [facility] offers sequential screenings for women who are interested in screenings for chromosomal abnormalities and certain defects during a . The sequential screen combinesultrasound and blood tests to determine the risk [...] this testing. It will require an appointment withour mechanical test technician. This is not an ultrasound performed [...] the above symptoms, contact our office at [phone] and ask to speak with anurse. After hours, you can call doctors registry at [phone] OR call [facility] at [phone] ask to have the doctor supervisor ordnance truck installation paged. If you consider this an emergency, dial 1--3 or go to your nearest emergency department. NEED HELP? Are you dealing with a violent or abusive relationship? Are you a victim of rape or sexual assult? Call [facility] ([place]) 24 hour Crisis Hotline: 915.437.1782 or 509-312-7661. MANUAL Your Guide to a Healthy manual is now on-line. Visit [email or web address] to download your free copy documented in this encounter[facility] History of Present illness Narrative* Patti Love MA - 01/28/2024 11:34 AM EDT POPULATION HEALTH NAVIGATION OUTREACH Action/FYI Patient called back and said that she plans on going through [facility]. She states she doesn't have a specific provider. Updated OB/PEDS field. OB/PEDS Reason for Outreach Medicaid OB/Peds Care Gaps due: N/A Patient Contacted: Spoke to patient/parent/or legal guardian Patient identified by name and : Yes Medicaid OB/Peds actions taken: [place]/[employer] Engineer added Navigation Signature: Patti Love MA January 28, 2024 11:34 AM * Patti Love MA - 01/28/2024 11:25 AM EDT POPULATION HEALTH NAVIGATION OUTREACH Action/FYI Called and left a voicemail for patient to call me back directly [employer] message sent OB/PEDS Reason for Outreach Medicaid OB/Peds Care Gaps due: N/A Patient Contacted: Unable or unnecessary to reach patient: Left message [employer] message sent Navigation Signature: Patti Love MA January 28, 2024 11:28 AM documented in this encounterSub[facility] History of Present illness Narrative* Abelino Kessler MD - 01/20/2024 1:03 AM EDT NST SUMMARY PROVIDER ASSESSMENT AND INTERPRETATION Aiden French is a 33 year old female, , who is at 36w6d with an CHAYITO of 02/11/2024, by Last Menstrual Period dating method. Indications for NST: Diabetes - Diet Controlled Baseline: 135 Variability: Moderate Accelerations: Present 15 X 15 Decelerations: None Contractions: TOCO: None Interpretation: Reactive SIGNATURE: Abelino Kessler DO documented in this encounterSub[facility] Miscellaneous Notes* Quick Notes - Abelino Kessler MD - 01/19/2024 10:42 AM EDT SW- Pt doing well. Occasional ctx's. No vb, lof. Good FM PE: Gen- NAD, well appearing, comfortable Abd- Soft, gravid, NT See flowsheet A/p 36 wk gestation - A1GDM: Pt did not bring BG log but reports blood sugars are well controlled. Discussed importanceof bringing BG log to visits. NST today given no BG log to review. Scheduled for repeat growth US - GBS negative - Confirmed vertex - RTO 1 wk Abelino Kessler DO documented in this encounterSub[facility] Instructions* Patient Instructions* Patti Sánchez MA - 01/19/2024 10:30 AM EDT SEQUENTIAL SCREENINGS [facility] offers sequential screenings for women who are interested in screenings for chromosomal abnormalities and certain defects during a . The sequential screen combinesultrasound and blood tests to determine the risk [...] this testing. It will require an appointment withour mechanical test technician. This is not an ultrasound performed [...] the above symptoms, contact our office at [phone] and ask to speak with anurse. After hours, you can call doctors registry at [phone] OR call [facility] at [phone] ask to have the doctor supervisor ordnance truck installation paged. If you consider this an emergency, dial 9-1-1 or go to your nearest emergency department. NEED HELP? Are you dealing with a violent or abusive relationship? Are you a victim of rape or sexual assult? Call [facility] ([place]) 24 hour Crisis Hotline: 841.765.3080 or 833-615-3158. MANUAL Your Guide to a Healthy manual is now on-line. Visit [email or web address] to download your free copy documented in this encounterSub[facility] Miscellaneous Notes* Quick Notes - Abelino Kessler MD - 01/12/2024 8:36 AM EDT SW- pt doing well. Some irregular ctx's. No vb, lof. Noticing vaginal discharge. Good FM. PE: Gen- NAD, well appearing Abd- Soft, gravid, NT See flowsheet A/p 35 wk gestation - Pepcid controlling acid reflux - Mood stable on Zoloft - Fasting BG 84-96. 1 hour after meals 90-128. She did not bring BG log. Recent growth AGA with normal fluid - Desires IOL 39 weeks - RTO 1 wk Abelino Kessler DO documented in this encounterSub[facility] Instructions* Patient Instructions* Isabel Porter MA - 01/12/2024 8:12 AM EDT SEQUENTIAL SCREENINGS [facility] offers sequential screenings for women who are interested in screenings for chromosomal abnormalities and certain defects during a . The sequential screen combinesultrasound and blood tests to determine the risk [...] this testing. It will require an appointment withour mechanical test technician. This is not an ultrasound performed [...] the above symptoms, contact our office at [phone] and ask to speak with anurse. After hours, you can call doctors registry at [phone] OR call [facility] at [phone] ask to have the doctor supervisor ordnance truck installation paged. If you consider this an emergency, dial 9-1-2 or go to your nearest emergency department. NEED HELP? Are you dealing with a violent or abusive relationship? Are you a victim of rape or sexual assult? Call [facility] ([place]) 24 hour Crisis Hotline: 258.426.5728 or 082-764-0766. MANUAL Your Guide to a Healthy manual is now on-line. Visit [email or web address] to download your free copy documented in this encounterSub[facility]03-[facility] Miscellaneous Notes* Telephone Encounter - Lin Ramirez LPN - 12/30/2023 1:43 PM EDT ANDREA paperwork completed, faxed to employer, scanned into EMR and filed in nurses station. JENNA Cuello documented in this encounterSub[facility] Instructions* Patient Instructions* Hayley Parr, SARATH - 12/18/2023 9:32 AM EDT Aim for regular meals, don't go longer than 4-5 hours between meals; add in healthy snacks of wholegrain and protein Aim for a least 150 grams, preferably 175 Keep breakfast 15-30 grams of carbohydrate of whole grain and protein; lunch of 45 grams; dinner 30-45 grams or 2-3 carb choices; include an evening with some carb and protein, try a sugar free pudding. Add protein at breakfast, try a protein drink, peanuts, Add exercise on off work days and if needed a short walk after meals can help control post meal blood sugars documented in this encounterSub[facility] History of Present illness Narrative* Hayley Parr RD - 12/17/2023 3:07 PM EDT [facility] Nutrition Therapy: Virtual Consult - Re-assessment I have communicated my name and active licensure. The patient s identity and physical location wereverified at the time of this visit. Either the patient or their legal office services representative has been informed of the risks and benefits of -- and alternatives to -- treatment through a remote evaluation andconsents to proceed with the evaluation remotely. Nutrition Diagnosis: Altered nutrition-related lab values, related to, and endocrine dysfunction, as evidenced by gestational diabetes RECOMMENDED MALNUTRITION DIAGNOSIS: NO MALNUTRITION IDENTIFIED NUTRITION CARE PLAN: Nutrition Intervention 12/17/2023: modify type and amount of food or beverage Aim for regular meals, don't go longer than 4-5 hours between meals; add in healthy snacks of wholegrain and protein Aim for a least 150 grams, preferably 175 Keep breakfast 15-30 grams of carbohydrate of whole grain and protein; lunch of 45 grams; dinner 30-45 grams or 2-3 carb choices; include an evening with some carb and protein, try a sugar free pudding. Add protein at breakfast, try a protein drink, peanuts, Add exercise on off work days and if needed a short walk after meals can help control post meal blood sugars Nutrition Monitoring & Evaluation: labs in normal range, balanced nutrition for pregnanc Need for Follow up: as needed PROGRESS: Interval History: follow up as relates to gestational diabetes now at ~33 weeks . Is monitoring blood sugars, most in target range. Follows a low carb diet, carbohydrate intake less than recommended for . Continues long period between meals on work days, could benefit from snacks. Usually getting 2 hours sleep per night, in pain with possible gall bladder issues. Nutrition Intervention 11/24/23 Goals: Fasting glucose <95 mg/dL; 1 hr glucose ,140 mg/dL, 2 hr glucose ,120 mg/dL; mean glucoseof 86 mg/dL. 1. Distribute carbohydrate evening throught [...] fast such as olive oil, canola oil, avocados,nuts/seeds, etc. 6. . If not busy all day, include 30 min exercise; can also add a short walk after meals as needed to help keep post meal blood sugars controlled. Actions to implement interventions: Limited Diet History: 80-90 range Breakfast - breakfast sandwich, o juice with meds Snack - no Lunch - salad with steak,lite dressing Snack - no Dinner - salad with steak, croutons Snack - no Beverages - water, milk with meals Alcohol - no Vitamins/Supplements - , Pepcid twice daily 1 hour post prandial 92-120 On weekends snack of apple n pnb Activity: Activities of Daily Living: Active 75% of the day. 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 Resting Metabolic Rate: 1461 Malnutrition Screening Significant unintentional weight loss? No Eating less than 75% of usual intake for more than 2 weeks? No Potential Signs of Inflammation: no identifiable sources Nutritional status: Education Materials Provided: None this visit READINESS TO LEARN Cognitive ability: Alert and oriented Motivation to learn: Interested Family support: Unable to assess - Family not present Instruction provided to: Patient Patient learns best by: Individual Instruction Factors affecting learning: None Physical limitations affecting learning: None Likelihood of Adherence: Moderate Referred by: Donita RAMOS Billing Type: Re-assess/15 min 2 units SIGNATURE: Hayley Parr RD PATIENT NAME: Aiden French DATE: 12/17/2023 TIME: 3:10 PM documented in this encounterSub[facility]03[facility] Miscellaneous Notes* Telephone Encounter - Lin Ramirez LPN - 12/16/2023 11:59 AM EDT FMLA paperwork completed, original placed at dental front office assistant for pt to pepper picker. Copy scanned into EMR and filed in nurses station. Lin Ramirez LPN * Telephone Encounter - Lin Ramirez LPN - 12/16/2023 11:52 AM EDT Pt's significant others FMLA completed and placed on providers desk for signature. Lin Ramirez LPN documented in this encounterSub[facility]03-[facility]24 Miscellaneous Notes* Quick Notes - Abelino Kessler MD - 12/15/2023 4:34 PM EDT SW- Some cramping and vaginal pain. No ctx's, vb, lof. Good FM PE: Gen- NAD, well appearing Abd- Soft, gravid, NT Ext- No edema See flowsheet A/p 31 wk gestation - Reviewed pain in and reasons to call - A1GDM: BG log reviewed and within goal. Repeat growth US ordered. Discussed risks of GDM in - RTO 2 wks Abelino Kessler DO documented in this encounterSub[facility]03-[facility] Instructions* Patient Instructions* Patti Sánchez MA - 12/15/2023 4:20 PM EDT SEQUENTIAL SCREENINGS [facility] offers sequential screenings for women who are interested in screenings for chromosomal abnormalities and certain defects during a . The sequential screen combinesultrasound and blood tests to determine the risk [...] this testing. It will require an appointment withour mechanical test technician. This is not an ultrasound performed [...] the above symptoms, contact our office at [phone] and ask to speak with anurse. After hours, you can call doctors registry at [phone] OR call [facility] at [phone] ask to have the doctor supervisor ordnance truck installation paged. If you consider this an emergency, dial -0 or go to your nearest emergency department. NEED HELP? Are you dealing with a violent or abusive relationship? Are you a victim of rape or sexual assult? Call [facility] ([facility] 24 hour Crisis Hotline: 789.385.2776 or 663-883-6993. MANUAL Your Guide to a Healthy manual is now on-line. Visit [email or web address] to download your free copy documented in this encounterSub[facility]03[facility]24 Discharge summary Author Rony Burgess [facility] December 14, 2023 1:55am Note Date/Time December 13, 2023 10:2 9pm [facility] Medical Records Department [address] [place] [address] Emergency Department Summary 12/13/23 MR#: [id number] Acct: [id number] Name: AIDEN FRENCH Rep #:[id number] : 1990 33 From: Rony Snigh PCP: Dr. Kishor Hernandez MD Status:REG E R Location: ED HPI History of Present Illness Chief Complaint: [facility] Medical History (Updated 12/13/23 @ 22:32 by Mima Prather) Anxiety Depression Gestational diabetes Ovarian cyst Home Medications docosahexaenoic acid 200 mg capsule ( DHA) mg PO DAILY 08/07/23 [History Last Taken Unknown] ondansetron HCl 4 mg tablet mg 08/07/23 [History Last Taken Unknown] sertraline 25 mg tablet mg 08/07/23 [History Last Taken Unknown] Allergy/AdvReac Type Severity Reaction Status Date / Time No Known Allergies Allergy Verified 12/13/23 22:12 Social History Smoking Status: Current every day smoker tobacco type: e-cigarettes substance use type: does not use EXAM Physical Exam Const Vital Signs: 12/13/23 22:12 12/13/23 22:11 12/13/23 22:31 Temperature 97 F L Temperature Source Temporal Pulse Rate 80 81 Respiratory Rate 20 H 16 Respiratory Effort Blood Pressure 107/71 112/78 Blood Pressure Mean 83 89 Pulse Ox 96 97 98 Oxygen Delivery Method Room Air Room Air Room Air 12/13/23 22:32 12/13/23 23:45 12/14/23 00:15 Temperature Temperature Source Pulse Rate 76 77 Respiratory Rate 13 12 Respiratory Effort Short of Breath Blood Pressure 113/65 115/59 L Blood Pressure Mean 77 75 Pulse Ox 100 100 Oxygen Delivery Method 12/14/23 00:45 12/14/23 01:04 Temperature Temperature Source Pulse Rate 72 75 Respiratory Rate 10 L 13 Respiratory Effort Blood Pressure 100/45 L 97/51 L Blood Pressure Mean 60 66 Pulse Ox 100 100 Oxygen Delivery Method Room Air [facility] Narrative Medical decision making narrative: HISTORY OF PRESENT ILLNESS: 33-year-old female presents with chest pain. States pain radiates to the back and jaw. States she is 32 weeks . Pain is not exertional. It is worsewith food and drinking. States has history of GERD has been taking Tums and Pepcid without relief. Denies r family history of early cardiac . Denies any increased bleeding. Denies any leg swelling. No vomiting or diarrhea recently. She is a G3, P2. No history of miscarriage. No new abdominal pain, vaginal bleeding, passage of any tissue. Normal movement. Patient denies sudden onset of pain, no tearing sensation, no migratory symptoms, no new numbness, weakness or loss of sensation. Patient denies family history or personal history of Marfan syndrome or Alexus-Danlos. The patient denies recent surgery in the last 4 weeks or immobilization in the last 3 days, denies previous diagnosis of DVT or PE, hemoptysis, unilateral leg swelling or malignancy with treatment the last 6 months. No estrogen use noted. REVIEW OF SYSTEMS: All other systems reviewed and are negative except as noted in the history of present illness. At least 10 review of systems reviewed and are negative except as noted in history of present illness. PHYSICAL EXAM: Nursing triage notes reviewed, Vital signs reviewed Constitutional: please see mdm HENT: MMM Eyes: Pupils equal round and reactive to light, Extraocular muscles intact Neck: No stridor, no JVD, full neck ROM Lungs: Clear to auscultation, No wheezing or rales. No increased work of breathing, no conversational dyspnea, no accessory muscle use, no nasal flaring. No respiratory distress noted Heart: Regular rate and rhythm, No murmurs, No rubs and No gallops, 2+ distal pulses (radial, femoral, posterior tibial) in all extremities Abdomen: Soft, there is no tenderness, rigidity, rebound or guarding, no obviousperitoneal signs, no palpable pulsatile abdominal masses, no auscultated abdominal bruit : No CVAT Extremities: No edema Neuro: No focal neurological deficits, cranial nerves II through XII intact, 5/5strength in all extremities. Intact sensation to light touch in all extremities,2+ reflexes bilateral patella tendons. Normal gait. No ataxia. Skin: No rash or lesions noted MEDICAL DECISION MAKING: Chief Complaint: Chest pain External records reviewed: No recent cardiac catheterizations, stress test or echocardiograms noted in the chart Factors affecting care: 32 weeks OB, GERD Social determinants of health: Denies illicit drug use History obtained from others: Patient's boyfriend Consults: none MDM Narrative: Patient was initially hemodynamically stable, afebrile and nontoxic-appearing. Exam without focal cardiopulmonary normalities. No friction rubs. No pulse deficits. No leg swelling or calf tenderness. I considered the following differential diagnosis: ACS, arrhythmia, anemia, electrolyte abnormality, pneumonia, pneumothorax, GI etiology, PE ALL IMAGES (IF OBTAINED) HAVE BEEN PERSONALLY REVIEWED AND INTERPRETED BY MYSELF. EKG with normal sinus rhythm, normal axis, normal intervals, no ST or T wave changes to suggest ischemia. No evidence of WPW, Brugada, ARVD. I have personally reviewed the patient's chest x-ray. Chest x-ray is unremarkable for pulmonary edema, pneumothorax, pneumonia or focal cardiopulmonary abnormality. CBC with marked leukocytosis suggestive of systemic inflammation, mild anemia, no thrombocytopenia BMP with no significant electrolyte abnormalities, no anion gap to suggest endorgan perfusion, no evidence of metabolic acidosis High-sensitivity troponin is negative, no evidence of myocardial ischemia x 2 The Synthesis of the patient's history, physical exam, labs images suggest no acute life-limiting etiology. Positive elevated white blood cell count she did have obvious focus of infection. No signs of pneumonia, pericarditis, viral illness. She is likely suffering from -induced GERD she was given OB follow-up instructions and strict return precautions. PE less likely given low risk Wells score. Aortic dissection is thought to be less likely given no sudden ripping or tearing pain, migratory pain, palpable pulse inequalities, no focal neurologic deficits concurrent with chest pain. Chance of dissection less than 10/1999. Pericarditis less likely given no pathognomonic EKG changes (no diffuse ST elevations, MA depressions). GI etiology (i.e. Boerhaave syndrome) less likely given no chest or neck crepitus, no vomiting or forced retching. I completed a HEART Score to screen for Major Adverse Cardiac Event (MACE) in this patient. The evidence indicates that the patient is very low risk for MACE and this is consistent with my clinical intuition. The risk of further workup or hospitalization for MACE is likely higher than therisk of the patient having a MACE. It is, therefore, in the patient?s best interest not to do additional emergent testing or to be hospitalized for MACE atthis time. Shared Decision-Making No hospitalization indicated I have discussed with the patient my clinical impression and the result of the HEART Score to screen for MACE, as well as the risks of further testing and hospitalization. The HEART Score shows that the risk for MACE is less than 1%. Although the risk of MACE has not been completely eliminated, the risks of further testing or hospitalization for MACE likely exceed any potential benefit, and the patient agrees with not pursuing further emergent evaluation or hospitalization for MACE at this time. heart tones 160 was reassuring given patient is no clinical symptoms of loss or labor. The patient and/or family, caregivers express understanding. The patient and/or family, caregivers agrees with the plan. Total critical care time today provided was at least 0 minutes. This excludes separately billable procedures. Critical care time (if documented) is secondary to the patient having high probability of clinically significant/life threatening deterioration in the patient's condition which required my urgent intervention. Impression: 1. Chest pain 2. Leukocytosis 3. Anemia 4. Third trimester Rony Burgess, DO Lab Data Labs: Laboratory Results - last 24 hr 12/13/23 12/14/23 22:35 00:50 WBC 19.8 H RBC 3.80 L Hgb 11.2 L Hct 34.3 L MCV 90.3 MCH 29.5 MCHC 32.7 RDW Std Deviation 43.5 RDW Coeff of Jamil 13.2 Plt Count 311 MPV 9.8 Immature Gran % (Auto) 2.100 H Neut % (Auto) 68.4 Lymph % (Auto) 18.8 L Hughes % (Auto) 7.8 Eos % (Auto) 2.3 Baso % (Auto) 0.6 Absolute Neuts (auto) 13.5 H Absolute Lymphs (auto) 3.72 Nucleated RBC % 0 Differential Comment SEE COMMENT Diff Path Review May foll Platelet Estimate ADEQUATE RBC Morphology N CHROM Anisocytosis RARE Macrocytosis RARE Sodium 139 Potassium 3.4 L Chloride 110 H Carbon Dioxide 23.0 Anion Gap 6 BUN 9 Creatinine 0.46 L Estim Creat Clear Calc 165.14 Est GFR (MDRD) Af Amer 203 Est GFR (MDRD) Non-Af 167 BUN/Creatinine Ratio 19.5 Glucose 138 H Calcium 9.0 Troponin I High Sens 4 5 Radiography Diagnostic Testing: Clinical Impression(s) from Imaging Studies Chest X-Ray 12/13/23 22:29 IMPRESSION: Normal x-ray examination of the chest. Electronically Signed: Ari Isidro MD at 23:43 EST , Discharge Plan Triage Chief Complaint: Chest Pain ED Provider: Rony Burgess Dx/Rx/DC Orders Instructions: Chest Pain [facility] Prescriptions: No Action ondansetron HCl 4 mg tablet Patient Comments: take 1 tablet by mouth every 8 hours if needed for nausea and vomiting sertraline 25 mg tablet Patient Comments: take 1 tablet by mouth once daily OKAY TO START WITH 1/2 TABLET D... (REFER TO PRESCRIPTION NOTES). DHA 200 mg capsule PO DAILY Primary Care Provider: Kishor Hernandez Referrals: Kishor Hernandez MD [Primary Care Provider] - Activity Restrictions/Additional Instructions: Thank you for trusting us with your care today! No clear life or limb threatening issues with your chest or heart were found. Please take Tylenol (2 pills, 650 mg) every 6 hours as needed for pain and fevercontrol. Please return to the emergency department if your symptoms change or worsen. Please follow with your primary care physician for further outpatient evaluationand management. Disposition Disposition: Home, Self Care What to do if you have Problems For any increased pain, shortness of breath, bleeding, nausea or vomiting, chestpain, or any unexpected problems, contact your Primary Care Provider. Call [email or web address] ([phone]) or report to the closest Emergency Room. Call 911 if necessary. 12/14/23 0155 <Electronically signed by Rony Burgess DO> Cosigner Signature (if applicable): CC: Dr. Kishor Hernandez MD ~ Signed [facility] Work Phone: 1(210) 396-525603-08-2024 Miscellaneous Notes* Telephone Encounter - Dakota Thornton MD - 12/12/2023 8:49 AM EST Overall normal. Have her bring to visit Friday. Dakota Thornton MD [facility] Miscellaneous Notes* Telephone Encounter - Lin Ramirez LPN - 12/04/2023 11:54 AM EST FMLA paperwork completed, faxed to employer, scanned into EMR and filed in nurses station. JENNA Cuello * Telephone Encounter - Lin Ramirez LPN - 12/01/2023 4:26 PM EST Received FMLA forms for pt. Anton message sent to pt for clarification on her leave dates and if this is for her place of employment. Will await further response from pt. Lin Ramirez LPN documented in this encounterSub[facility] Miscellaneous Notes* Telephone Encounter - Odalis Morales RN - 12/02/2023 11:49 AM EST 3rd risk assessment form submitted 12/02/2023. Odalis Morales RN documented in this [facility]02-26-2024 Miscellaneous Notes* Quick Notes - Cristin Prabhakar - 12/01/2023 5:22 PM EST S: Aiden French is a 33 year old female who presents at 02/11/2024, by Last Menstrual Period for a routine visit. Denies headache, visual changes, chest pain, shortness of breath, vaginal bleeding, leakage of fluid, or dysuria. Having some shooting pains vaginally and bilateral groin cramping. Sometimes lightheaded with position changes. 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 I have re-performed the HPI, Physical Examination, Assessment and Plan. Shu Reeves APRN.CNM documented in this encounterSub[facility] Instructions* Patient Instructions* Eugenie Sarmiento LPN - 12/01/2023 4:16 PM EST SEQUENTIAL SCREENINGS [facility] offers sequential screenings for women who are interested in screenings for chromosomal abnormalities and certain defects during a . The sequential screen combinesultrasound and blood tests to determine the risk [...] this testing. It will require an appointment withour mechanical test technician. This is not an ultrasound performed [...] the above symptoms, contact our office at [phone] and ask to speak with anurse. After hours, you can call doctors registry at [phone] OR call [facility] at [phone] ask to have the doctor supervisor ordnance truck installation paged. If you consider this an emergency, dial 9-0-4 or go to your nearest emergency department. NEED HELP? Are you dealing with a violent or abusive relationship? Are you a victim of rape or sexual assult? Call [facility] ([place]) 24 hour Crisis Hotline: 644.416.6290 or 923-798-8505. MANUAL Your Guide to a Healthy manual is now on-line. Visit [email or web address] to download your free copy documented in this encounterSub[facility] Instructions* Patient Instructions* Hayley Parr, SARATH - 11/25/2023 2:32 PM EST Goals: Fasting glucose <95 mg/dL; 1 hr glucose ,140 mg/dL, 2 hr glucose ,120 mg/dL; mean glucoseof 86 mg/dL. 1. Distribute carbohydrate evening throught [...] fast such as olive oil, canola oil, avocados,nuts/seeds, etc. 6. . If not busy all day, include 30 min exercise; can also add a short walk after meals as needed to help keep post meal blood sugars controlled. documented in this encounterSub[facility] History of Present illness Narrative* Hayley Parr RD - 11/24/2023 3:19 PM EST [facility] Nutrition Therapy: Virtual Consult - Initial Assessment I have communicated my name and active licensure. The patient s identity and physical location wereverified at the time of this visit. Either the patient or their legal office services representative has been informed of the risks and benefits of -- and alternatives to -- treatment through a remote evaluation andconsents to proceed with the evaluation remotely. Nutrition Diagnosis: Altered nutrition-related lab values, related to, and endocrine dysfunction, as evidenced by elevated glucose tolerance tests . RECOMMENDED MALNUTRITION DIAGNOSIS: NO MALNUTRITION IDENTIFIED NUTRITION CARE PLAN Nutrition Intervention 11/24/2023: modify type and amount of food or beverage Goals: Fasting glucose <95 mg/dL; 1 hr glucose ,140 mg/dL, 2 hr glucose ,120 mg/dL; mean glucoseof 86 mg/dL. 1. Distribute carbohydrate evening throught [...] fast such as olive oil, canola oil, avocados,nuts/seeds, etc. 6. . If not busy all [...] snacks. Is very active at work, no timefor snacks. 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 SIGNATURE: Kevin Pettit RN PATIENT NAME: Aiden French DATE: November 19, 2023 TIME: 1:54 PM documented in this encounterSub[facility] Miscellaneous Notes* Telephone Encounter - Desire French RN - 11/19/2023 11:37 AM EST Patient called and appointments scheduled. Desire French RN * Telephone Encounter - Manuela Colbert MD - 11/19/2023 10:14 AM EST ordered * Telephone Encounter - Stephon Almonte RN - 11/19/2023 9:28 AM EST ----- Message from Manuela Duckworth MD sent at 11/19/2023 9:06 AM EST ----- Pt can stop with the three hour test as she failed it already. Please pend supplies and arrange fordiabetic teaching/nutrition. documented in this encounterSub[facility] Miscellaneous Notes* Telephone Encounter - Gwendolyn Cote RN - 11/18/2023 8:38 AM EST ----- Message from Manuela Duckworth MD sent at 11/18/2023 7:58 AM EST ----- Notify patient she failed her GCT, needs 3hr. documented in this encounterSub[facility] Miscellaneous Notes* Quick Notes - Abelino Kessler MD - 11/17/2023 3:43 PM EST SW- Pt doing well. Some acid reflux. [...] wk Abelino Kessler DO documented in this encounterSub[facility] Instructions* Patient Instructions* Patti Sánchez MA - 11/17/2023 3:30 PM EST SEQUENTIAL SCREENINGS [facility] offers sequential screenings for women who are interested in screenings for chromosomal abnormalities and certain defects during a . The sequential screen combinesultrasound and blood tests to determine the risk [...] this testing. It will require an appointment withour mechanical test technician. This is not an ultrasound performed [...] the above symptoms, contact our office at [phone] and ask to speak with anurse. After hours, you can call doctors registry at [phone] OR call [facility] at [phone] ask to have the doctor supervisor ordnance truck installation paged. If you consider this an emergency, dial 06-06-6 or go to your nearest emergency department. NEED HELP? Are you dealing with a violent or abusive relationship? Are you a victim of rape or sexual assult? Call [facility] ([place]) 24 hour Crisis Hotline: 753.559.3052 or 120-530-2591. MANUAL Your Guide to a Healthy manual is now on-line. Visit [email or web address] to download your free copy documented in this encounterSub[facility]02-[facility] Instructions* Patient Instructions* Zuleyma Castro APRN.CNP - 11/11/2023 9:47 AM [...] expected course of illness Zuleyma Castro APRN.CNP documented in this encounterSub[facility] History of Present illness Narrative* Zuleyma Castro APRN.CNP - 11/11/2023 9:37 AM EST Subjective Headache Associated symptoms include malaise/fatigue and nausea. Pertinent negatives include no fever. Aiden French is a 33 year old female who presents with headache, fatigue, nausea for the past3 hours. States she left work this morning due to symptoms. She is 27 weeks . States I think I'm just exhausted. Denies flu like symptoms. No vaginal spotting [...] Wt 78.9 kg (174 lb) LMP 05/07/2023 (ExactDate) SpO2 98% BMI 30.82 kg/m PAST MEDICAL [...] Discussed expected course of illness Zuleyma Castro APRN.MARY documented in this encounterSub[facility]12[facility] History of Present illness Narrative* Zuleyma Castro APRN.CNP - 09/24/2023 12:17 PM EST Images from the original note were not included. Subjective HPI Aiden French is a 33 year old female who presents with lower back pain that radiates to right hip and front of right leg to knee. She has had this for the past 1.5 hours because Tylenol does nothing. She denies any injury. States some of [...] Wt 77.6 kg (171 lb) LMP 05/07/2023 (ExactDate) SpO2 98% BMI 30.29 kg/m PAST MEDICAL [...] motion. Positive right straight leg raise test andpositive left straight leg raise test. Back: Neurological: Mental Status: She is alert. ASSESSMENT/PLAN: 1. Sciatica, right side - ICD9: 724.3, ICD10: M54.31 - I feel patients symptoms are consistent with sciatica; she states she has had sciatica before andthis seems different. She is referred to ER for further evaluation and treatment due to . Zuleyma Castro APRN.AUTO HEADLIGHT MECHANIC documented in this encounterSub[facility]12-04-2023 Miscellaneous Notes* Telephone Encounter - Dolores Gayle - 09/08/2023 8:41 AM EST Patient has been identified by name and [...] Thank you. Dolores Gayle. documented in this encounterSub[facility]11-29-2023 Miscellaneous Notes* Quick Notes - Shu Reeves APRN.CNM - 09/03/2023 4:22 PM EST LEANDER-S: Aiden French is a 33 year old female who [...] scheduled Shu Reeves APRN.CNM documented in this encounterSub[facility]11-29-2023 Instructions* Patient Instructions* Shu Reeves APRN.CNM - 09/03/2023 4:21 PM EST Aspirin 81mg by mouth once daily for prevention of preeclampsia SEQUENTIAL SCREENINGS [facility] offers sequential screenings for women who are interested in screenings for chromosomal abnormalities and certain defects during a . The sequential screen combinesultrasound and blood tests to determine the risk [...] this testing. It will require an appointment withour mechanical test technician. This is not an ultrasound performed [...] the above symptoms, contact our office at [phone] and ask to speak with anurse. After hours, you can call doctors registry at [phone] OR call [facility] at [phone] ask to have the doctor supervisor ordnance truck installation paged. If you consider this an emergency, dial 9-- or go to your nearest emergency department. NEED HELP? Are you dealing with a violent or abusive relationship? Are you a victim of rape or sexual assult? Call [facility] ([place]) 24 hour Crisis Hotline: 388.675.9431 or 619-998-7495. MANUAL Your Guide to a Healthy manual is now on-line. Visit [email or web address] to download your free copy documented in this encounterSub[facility]10-30-2023 Miscellaneous Notes* Quick Notes - Abelino Kessler MD - 08/04/2023 2:32 PM EDT SW- Doing well. N/V controlled with B6 and Zofran. Having constipation. PE: Gen- NAD, well appearing See flowsheet A/p 12 wk gestation - Discussed Miralax and Colace, hydration, prune juice for constipation - Discussed checking cost and coverage of NIPT. Pt plans to check coverage today. NIPT today - NT normal today - RTO 4 wks Abelino Kessler DO documented in this encounterSub[facility]10-30[facility] Instructions* Patient Instructions* Patti Sánchez MA - 08/04/2023 2:17 PM EDT SEQUENTIAL SCREENINGS [facility] offers sequential screenings for women who are interested in screenings for chromosomal abnormalities and certain defects during a . The sequential screen combinesultrasound and blood tests to determine the risk [...] this testing. It will require an appointment withour mechanical test technician. This is not an ultrasound performed [...] the above symptoms, contact our office at [phone] and ask to speak with anurse. After hours, you can call doctors registry at [phone] OR call [facility] at [phone] ask to have the doctor supervisor ordnance truck installation paged. If you consider this an emergency, dial 06-06-4 or go to your nearest emergency department. NEED HELP? Are you dealing with a violent or abusive relationship? Are you a victim of rape or sexual assult? Call [facility] ([place]) 24 hour Crisis Hotline: 455.533.2747 or 777-585-4105. MANUAL Your Guide to a Healthy manual is now on-line. Visit [email or web address] to download your free copy documented in this encounterSub[facility]10[facility]23 Miscellaneous Notes* Telephone Encounter - Stephon Almonte RN - 07/29/2023 1:57 PM EDT Patient notified. STEPHON ALMONTE RN * Telephone Encounter - Dakota Thornton MD - 07/29/2023 1:46 PM EDT Noted & agree with recommendations. Rx zofran sent. Dakota Thornton MD * Telephone Encounter - Stephon Almonte RN - 07/29/2023 1:31 PM EDT Patient called reporting constant nausea and frequent [...] absence. Stephon Almonte RN documented [facility] Miscellaneous Notes* Telephone Encounter - Coco Ko RN - 07/15/2023 12:30 PM EDT risk assessment form complete Coco Ko RN documented in this encounterSub[facility] History of Present illness Narrative* Shu Reeves APRN.CNM - 07/11/2023 5:15 PM EDT OB point of care ultrasound was performed. See imaging tab for details. Shu Reeves APRN.CNM documented in this encounterSub[facility] History of Present illness Narrative* Shu Reeves APRN.CNM - 07/11/2023 1:00 PM EDT INITIAL OB ASSESSMENT OB Provider: Shu Reeves APRN CNM HPI: Aiden is a 33 year old White here [...] use: No Multivitamin with Folic acid: Yes Anglican or heritage: No Would refuse blood transfusion if medically necessary: No Are you currently employed? 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 Reviewed midwifery and final inspector balance wheel services that are available. Follow up in 4 weeks or sooner myke. Shu Reeves APRN.CNM documented in this encounterSub[facility] Instructions* Patient Instructions* Shu Reeves APRN.CNM - 07/11/2023 1:00 PM EDT Please select the following link to access the [facility] Your Guide to a Healthy . [email or web address] [...] to help control my nausea and vomiting? [employer] has a helpful fact sheet on nausea in with recommendations. You can review it here: https://mothertobaby.org/fact-sheets/wjlici-vkqhayrv-zxbnmjtix-nvp/pdf/. Also, eating small meals often, drinking plenty [...] did not find that miscarriage happened more oftenfor those who reported that they used ondansetron in the first trimester of . Does taking ondansetron increase the chance of defects? Every starts out with a 3-5% chance of having a defect. This is called the background risk. Most studies have found no increased chance for defects among thousands of people whoused ondansetron in the first trimester of . [...] taking ondansetron. In severe cases, this could becomean abnormal heart rhythm known as Torsades de [...] but the effects of ondansetron on a are not known. If ondansetron use is necessary, it is not usually a reason to stop . A different drug may be considered, especially while a or preterminfant. Be sure to talk to your healthcare [...] . For more information, please see the [employer] fact sheet Paternal Exposures at https://motherWayin.org/fact-sheets/prugnpni-reouppgoh-mnsqgewhb/pdf/. Metoclopramide October 06, 2019 This sheet talks [...] taken metoclopramide. Women who have these side effectsmight have a harder time becoming . However, studies have not suggested that metoclopramidewould affect fertility (a person s ability to get ). I have been taking metoclopramide and just found out I am . Should I stop? You should speak with your healthcare provider before making changes in this medication. If you areexperiencing nausea and vomiting or gastrointestinal problems that are affecting your ability to function, speak with your healthcare provider about which medication would be best for you and your baby. For more information on nausea and vomiting in , please see the MotherToBaby fact sheeton Nausea and Vomiting in at https://mothertobaby.org/fact-sheets/bdvtid-crrbcnkj-kqlhcvcpn-nvp/pdf/. Can metoclopramide increase the chance for a [...] be admitted to a hospital for treatment. Inthese reports, 2 women developed movement disorders (known as tardive dyskinesia) and 2 other womendeveloped intermittent porphyria (a condition that affects the body s ability to make red blood cells) which led to psychiatric conditions. All reports showed that these women got well with treatmentand went on to have healthy newborns. These [...] baby was to experience side effects, it wouldmost likely be stomach discomfort and gas. If [...] trouble with milk production, working with a virtualization consultant may be the most helpful in [...] . For more information, please see the [employer] fact sheet on Paternal Exposures at https:/ /mothertobaby.org/fact-sheets/eqnjlxqw-xhipbapqa-gcehzecfz/pdf/. [facility] at [facility] CenteringPregnancy is care that includes a traditional visit with additional timeand attention in a group setting. You will meet with your provider and other women who are due nearthe same time for 10 sessions during your [...] through the same experiences *support person welcome! [facility] #2 with Shu Reeves CNM and Sarina Montoya CNM at 9:30 a.m. -11:30 am on these Wednesdays Due dates through December 2023 May 21 - Session 1 June 18 - Session 2 July 16 - Session 3 August 13 - Session September 03 - Session 5 September 17 - Session 6 October 01 - Session 7 October 15 - Session 8 October 29 - Session 9 November 19 - Session 10 documented in this encounterSub[facility]20[facility] History of Present illness Narrative* Abel Thornton, SUSAN.AUTO HEADLIGHT MECHANIC - 06/25/2023 9:51 AM EDT CC: Patient presents with: Sore Throat: ST, SALAZAR, congestion and fatigue x 1 day-COVID exposure HPI: Aiden French is a 33 year old female who [...] symptoms occur. Patient agreeable to treatment plan. Abel Thornton APRN.MARY documented in this encounterSub[facility]-01[facility] History of Present illness Narrative* Chandler Burton MD - 06/06/2023 12:59 PM EDT Patient presents with: test: Only 1 day [...] Wt 69.4 kg (153 lb) LMP 03/10/2023 (ExactDate) SpO2 99% BMI 30.90 kg/m PHYSICAL EXAM: [...] weeks. Chandler Burton MD documented in this encounterSub[facility]08-30-[facility] History of Present illness Narrative* Shu Urias RDMS - 06/04/2023 2:30 PM EDT Radiology Service Progress Note PATIENT NAME: Aiden French DATE OF SERVICE: June 04, 2023 TIME: 2:59 PM PATIENT IDENTITY VERIFICATION COMPLETED USING TWO (2) IDENTIFIERS: Name and Date of confirmedby patient verbally. FALL SCREENING: Has the patient had 2 falls in the last year or 1 fall with injury or currently using an Ambulatory Assistive Device (Walker, Cane, Wheelchair, Crutches, etc.)? No PATIENT GENDER DATA: Female. status: : No status: NO. PATIENT RELEVANT IMPLANT DATA REVIEWED: Not Applicable RADIOLOGY DEPARTMENT: Ultrasound PERIPHERAL IV DATA: Not applicable SIGNED BY: Suh Urias RDMS RVT June 04, 2023 2:59 PM documented in this encounterSub[facility]08-24-2023 Miscellaneous Notes* Telephone Encounter - Lisa Merida LPN - 05/29/2023 7:42 AM EDT Pt notified of results and states understanding. Lisa Merida LPN * Telephone Encounter - Chandler Burton MD - 05/29/2023 7:34 AM EDT Labs showed overgrowth of normal bacteria known as BV. Flagyl antibiotic prescription sent to the pharmacy to treat this. Other tests were negative. Follow-up with gynecology if symptoms persist. documented in this encounterSub[facility]08-23-[facility]23 History of Present illness Narrative* Shu Hackett APRN.AUTO HEADLIGHT MECHANIC - 05/28/2023 9:42 AM EDT This note was created using Chasqui Bus[employer]. Subjective Aiden French is a 32 year old female. 32 year old female with PMH anxiety and depression presents for complaints of vaginal pain Acute onset last night. She associates the pain after having intercourse. +nausea Denies sx. Denies fever Denies emesis. Denies diarrhea Has utilized Ibuprofen and endorses that has helped Has been seen seen by STRIP POLISHER Endorses similar in past, one year ago States she went to ED and was evaluated at that time Denies that incident was accompanied with coitus. LMP-May 2 The history is provided by the patient. No deli slicer was used. Vaginal Problem This is a [...] 68.6 kg (151 lb 3.2 oz) LMP 03/10/2023(Exact Date) SpO2 99% BMI 30.54 kg/m Physical Exam Vitals and nursing note reviewed. Exam conducted with a buildings and grounds supervisor present. Constitutional: General: She is not in [...] Plan ASSESSMENT/PLAN: 1. Pelvic pain - ICD9: [id number], ICD10: R10.2 Etiology unclear Differential Diagnosis includes STI, Ovarian cyst, and Cystitis Urine dip negative. - Labs of GC/Chlamydia, BVAMP, CVTV pending - Follow up with STRIP POLISHER for further work up. Abstain from sex. OTC analgesics - Treatment deferred for vaginal discharge until results return, if positive please treat as indicated. Shu Hackett APRN.MARY documented in this encounterSub[facility]08-16-2023 Miscellaneous Notes* Telephone Encounter - Natalie Davila Mammo Tech - 05/21/2023 1:58 PM EDT Please file order for bilateral diagnostic mammogram per protocol for 32 yr old and no prior mammograms. Thank you. documented in this encounterSub[facility]08-08-2023 History of Present illness Narrative* Liss Vaca APRN.CNP - 05/13/2023 3:53 PM EDT SUBJECTIVE Aiden French is a 32 year old female here today for a check up on her medical problems. Chief Complaint Patient presents with: Medication Follow-up HPI Aiden French is a 32 year old female established patient of Dr. Hernandez who presents today for follow up. She [...] swelling, bleeding, inverted nipple, nipple discharge or skinchange. Comments: Palpable smooth, oval mass to the [...] from today's visit and in agreement with treatmentplan. Questions answered. Agrees to call the office [...] as well as compliance with taking medications. Age- appropriate health preventative measures were discussed. Return in about 4 weeks (around 06/10/2023) for recheck on new medication.. Liss Vaca APRN-MARY documented in this encounterSub[facility]06-28-2023 History of Present illness Narrative* Liss Vaca APRN.CNP - 04/02/2023 3:26 PM EDT SUBJECTIVE Aiden French is a 32 year old female here today for a check up on her medical problems. Chief Complaint Patient presents with: Follow Up HPI Aiden French is a 32 year old female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 King MD - 01/11/2022 10:15 AM EDT Sp[facility] Initial Exam CC; thoracic pain SUBJECTIVE HISTORY OF PRESENT ILLNESS: Aiden French is a 31 year old female who [...] intense since initiation. Notes has been on lightduty for the last 2 months via workman's comp doctor-[employer]. Notes now mainly pain is worse with [...] 110/68 Pulse 78 Ht 149.9 cm (4' 11.02) Wt 62.6 kg (137 lb 14.4 oz) LMP 02/07/2021 BMI27.84 kg/m General: Pleasant individual in NAD Mental Status: Oriented to person place and time. Displays appropriate mood and affect. GAIT: Gait is normal. Gross Motor: tandem gait is normal. Strength Testing: Bilateral upper and lower extremity strength is normal and symmetric. No atrophy or tone abnormalities are noted. Neuro: Bilateral upper and lower extremity coordination and muscle stretch reflexes are physiologicand symmetric. Negative pollack's Spine Range of Motion: [...] vertebrae are intact with no fracture. Thoracic xrays-11/01/2021-FINDINGS: VERTEBRAE: Preserved vertebral body height. Questionable fracture [...] contact. SIGNATURE: Patricia King MD PATIENT NAME: Aiden French DATE: January 11, 2022 TIME: 10:15 AM documented in this encounterSub[facility] History of Present illness Narrative* Bryce Guillen (Rt)Elsi - 12/01/2020 4:30 PM EST Radiology Service Progress Note PATIENT NAME: Aiden French DATE OF SERVICE: December 01, 2020 TIME: 4:35 PM PATIENT IDENTITY VERIFICATION COMPLETED USING TWO (2) IDENTIFIERS: Name and Date of confirmedby patient verbally. FALL SCREENING: Has the patient had 2 falls in the last year or 1 fall with injury or currently using an Ambulatory Assistive Device (Walker, Cane, Wheelchair, Crutches, etc.)? No PATIENT GENDER DATA: Female. status: : No status: NO. PATIENT RELEVANT IMPLANT DATA REVIEWED: Not Applicable RADIOLOGY DEPARTMENT: General X-ray: Exam(s) Completed: Lower Extremity X- Ray(s): Ankle, Left and Wt. Bearing: PERIPHERAL IV DATA: Not applicable SIGNED BY: RT Kia December 01, 2020 4:35 PM documented in this encounterSub[facility] History of Past illness Narrative* Problem Noted Date Resolved Date Overweight (BMI 25.0-29.9) 11/22/201405/24 Last Assessment & Plan: Patient was started on adipex she did not tolerate it, It gave her palpitations, dizziness and dry mouth and sleeplessness. She had so much thumping of the heart. She has no family support. documented as of this encounter (statuses as of 01/11/2022) [facility] of Past illness Narrative* Problem Noted Date Resolved Date Overweight (BMI 25.0-29.9) 11/22/201405/24 Last Assessment & Plan: Patient was started on adipex she did not tolerate it, It gave her palpitations, dizziness and dry mouth and sleeplessness. She had so much thumping of the heart. She has no family support. documented as of this encounter (statuses as of 03/22/2022) [facility] of Past illness Narrative* Problem Noted Date Resolved Date Overweight (BMI 25.0-29.9) 11/22/201405/24 Last Assessment & Plan: Patient was started on adipex she did not tolerate it, It gave her palpitations, dizziness and dry mouth and sleeplessness. She had so much thumping of the heart. She has no family support. documented as of this encounter (statuses as of 04/22/2022) [facility] of Past illness Narrative* Problem Noted Date Resolved Date Overweight (BMI 25.0-29.9) 11/22/201405/24 Last Assessment & Plan: Patient was started on adipex she did not tolerate it, It gave her palpitations, dizziness and dry mouth and sleeplessness. She had so much thumping of the heart. She has no family support. documented as of this encounter (statuses as of 06/05/2022) [facility] of [facility] illness Narrative* Problem Noted Date Resolved Date Overweight (BMI 25.0-29.9) 11/22/201405/24 Last Assessment & Plan: Patient was started on adipex she did not tolerate it, It gave her palpitations, dizziness and dry mouth and sleeplessness. She had so much thumping of the heart. She has no family support. documented as of this encounter (statuses as of 06/19/2022) [facility] of [facility] illness Narrative* Problem Noted Date Resolved Date Overweight (BMI 25.0-29.9) 11/22/201405/24 Last Assessment & Plan: Patient was started on adipex she did not tolerate it, It gave her palpitations, dizziness and dry mouth and sleeplessness. She had so much thumping of the heart. She has no family support. documented as of this encounter (statuses as of 09/09/2022) [facility] of [facility] illness Narrative* Problem Noted Date Resolved Date Overweight (BMI 25.0-29.9) 11/22/201405/24 Last Assessment & Plan: Patient was started on adipex she did not tolerate it, It gave her palpitations, dizziness and dry mouth and sleeplessness. She had so much thumping of the heart. She has no family support. documented as of this encounter (statuses as of 09/19/2022) [facility] of [facility] Narrative* Problem Noted Date Resolved Date Overweight (BMI 25.0-29.9) 11/22/201405/24 Last Assessment & Plan: Patient was started on adipex she did not tolerate it, It gave her palpitations, dizziness and dry mouth and sleeplessness. She had so much thumping of the heart. She has no family support. documented as of this encounter (statuses as of 11/01/2022) [facility] Narrative* Problem Noted Date Resolved Date Overweight (BMI 25.0-29.9) 11/22/201405/24 Last Assessment & Plan: Patient was started on adipex she did not tolerate it, It gave her palpitations, dizziness and dry mouth and sleeplessness. She had so much thumping of the heart. She has no family support. documented as of this encounter (statuses as of 01/23/2023) [facility] Narrative* Problem Noted Date Resolved Date Overweight (BMI 25.0-29.9) 11/22/201405/24 Last Assessment & Plan: Patient was started on adipex she did not tolerate it, It gave her palpitations, dizziness and dry mouth and sleeplessness. She had so much thumping of the heart. She has no family support. documented as of this encounter (statuses as of 01/23/2023) [facility] Narrative* Problem Noted Date Resolved Date Overweight (BMI 25.0-29.9) 11/22/201405/24 Last Assessment & Plan: Patient was started on adipex she did not tolerate it, It gave her palpitations, dizziness and dry mouth and sleeplessness. She had so much thumping of the heart. She has no family support. documented as of this encounter (statuses as of 01/25/2023) [facility] Narrative* Problem Noted Date Resolved Date Overweight (BMI 25.0-29.9) 11/22/201405/24 Last Assessment & Plan: Patient was started on adipex she did not tolerate it, It gave her palpitations, dizziness and dry mouth and sleeplessness. She had so much thumping of the heart. She has no family support. documented as of this encounter (statuses as of 04/03/2023) [facility] Narrative* Problem Noted [...] of this encounter (statuses as of 05/14/2023) [facility] Narrative* Problem Noted [...] of this encounter (statuses as of 05/22/2023) [facility] Narrative* Problem Noted [...] of this encounter (statuses as of 05/28/2023) [facility] Narrative* Problem Noted [...] of this encounter (statuses as of 05/29/2023) [facility] Narrative* Problem Noted [...] of this encounter (statuses as of 06/06/2023) [facility] Narrative* Problem Noted [...] of this encounter (statuses as of 06/25/2023) [address]17-2015 History of Past illness Narrative* Problem [...] of this encounter (statuses as of 07/12/2023) [facility] Narrative* Problem Noted [...] of this encounter (statuses as of 07/15/2023) [facility] Narrative* Problem Noted [...] of this encounter (statuses as of 07/18/2023) [facility] Narrative* Problem Noted [...] of this encounter (statuses as of 07/29/2023) [facility] Narrative* Problem Noted [...] of this encounter (statuses as of 08/05/2023) [facility] Narrative* Problem Noted [...] of this encounter (statuses as of 08/11/2023) [facility] Narrative* Problem Noted [...] of this encounter (statuses as of 09/07/2023) [facility] Narrative* Problem Noted [...] of this encounter (statuses as of 09/09/2023) [facility] Narrative* Problem Noted [...] of this encounter (statuses as of 09/25/2023) [facility] Narrative* Problem Noted [...] of this encounter (statuses as of 11/11/2023) [facility] Narrative* Problem Noted [...] of this encounter (statuses as of 11/18/2023) [facility]* Problem Noted [...] of this encounter (statuses as of 11/18/2023) [facility] N[facility]* Problem Noted [...] of this encounter (statuses as of 11/19/2023) [facility] N[facility]* Problem Noted [...] of this encounter (statuses as of 11/19/2023) [facility] Narrative* Problem Noted [...] of this encounter (statuses as of 11/25/2023) [facility] N[facility]* Problem Noted [...] of this encounter (statuses as of 12/03/2023) [facility] N[facility]* Problem Noted [...] of this encounter (statuses as of 12/03/2023) [facility]* Problem Noted [...] of this encounter (statuses as of 12/04/2023) [facility]* Problem Noted [...] of this encounter (statuses as of 12/05/2023) [facility]* Problem Noted [...] of this encounter (statuses as of 12/10/2023) [facility]ative* Problem Noted [...] of this encounter (statuses as of 12/12/2023) [facility] Narrative* Problem Noted Date Diagnosed Date Resolved Date Overweight (BMI 25.0-29.9) 11/22/2014 0 05/24/2021 Last Assessment & Plan: Patient was started on adipex she did not tolerate it, It gave her palpitations, dizziness and dry mouth and sleeplessness. She had so much thumping of the heart. She has no family support. documented as of this encounter (statuses as of 12/16/2023) [facility] Narrative* Problem Noted Date Diagnosed Date Resolved Date Overweight (BMI 25.0-29.9) 11/22/2014 0 05/24/2021 Last Assessment & Plan: Patient was started on adipex she did not tolerate it, It gave her palpitations, dizziness and dry mouth and sleeplessness. She had so much thumping of the heart. She has no family support. documented as of this encounter (statuses as of 12/17/2023) [facility] History of Past illness Narrative* Problem Noted Date Diagnosed Date Resolved Date Overweight (BMI 25.0-29.9) 11/22/2014 0 05/24/2021 Last Assessment & Plan: Patient was started on adipex she did not tolerate it, It gave her palpitations, dizziness and dry mouth and sleeplessness. She had so much thumping of the heart. She has no family support. documented as of this encounter (statuses as of 12/18/2023) [facility] History of Past illness Narrative* Problem Noted Date Diagnosed Date Resolved Date Overweight (BMI 25.0-29.9) 11/22/2014 0 05/24/2021 Last Assessment & Plan: Patient was started on adipex she did not tolerate it, It gave her palpitations, dizziness and dry mouth and sleeplessness. She had so much thumping of the heart. She has no family support. documented as of this encounter (statuses as of 12/30/2023) [facility] History of Past illness Narrative* Problem Noted Date Diagnosed Date Resolved Date Overweight (BMI 25.0-29.9) 11/22/2014 0 05/24/2021 Last Assessment & Plan: Patient was started on adipex she did not tolerate it, It gave her palpitations, dizziness and dry mouth and sleeplessness. She had so much thumping of the heart. She has no family support. documented as of this encounter (statuses as of 01/12/2024) [facility] History of Past illness Narrative* Problem Noted Date Diagnosed Date Resolved Date Overweight (BMI 25.0-29.9) 11/22/2014 0 05/24/2021 Last Assessment & Plan: Patient was started on adipex she did not tolerate it, It gave her palpitations, dizziness and dry mouth and sleeplessness. She had so much thumping of the heart. She has no family support. documented as of this encounter (statuses as of 01/20/2024) [facility] No data available for this section [facility] Evaluation note* Diagnosis Thoracic back pain, unspecified back pain laterality, unspecified chronicity- Primary [facility] Diagnosis Attention deficit hyperactivity disorder (ADHD), unspecified ADHD type- Primary Major depressive disorder, recurrent episode, in partial remission with anxious distress (HCC) documented [facility] Diagnosis Anxiety and depression- Primary Dysthymic disorder Attention deficit Attention or concentration deficit Panic attacks Panic disorder without agoraphobia [facility] Diagnosis URI, acute- Primary Acute upper respiratory infections of unspecified site [facility] Diagnosis Anxiety and depression- Primary Dysthymic disorder Dizziness Dizziness and giddiness Numbness and tingling Disturbance of skin sensation [facility] Diagnosis Irregular menses- Primary Irregular menstrual cycle Chest pain, unspecified type [facility] Diagnosis Patient left without being seen- Primary Surgical or other procedure not carried out because of patient's decision documented in this encounter [facility] [place] noteNo assessment information availableWTriHealth [facility] Work Phone: Evaluation note* Diagnosis Panic attack- Primary Panic disorder without agoraphobia documented [facility] this encounter [facility] [place] [facility]* Diagnosis Breast pain- Primary Mastodynia Anxiety Anxiety state, unspecified Panic attacks Panic disorder without agoraphobia Other fatigue Vitamin D deficiency Unspecified vitamin D deficiency Encounter for therapeutic drug monitoring documented in this encounter [facility] note* Diagnosis Breast pain- Primary Mastodynia documented in this [facility] [place] [facility]* Diagnosis Pelvic pain- Primary documented [facility] [place] [facility]* Diagnosis Positive urine test- Primary examination or test, positive result documented in this encounter [facility] note* Diagnosis URI, acute- Primary Acute upper respiratory infections of unspecified site documented [facility] [place] [facility]* Diagnosis with uncertain dates in first trimester- Primary 9 weeks gestation of state, incidental Encounter for supervision of normal in multigravida in first trimester documented [facility] [place] [facility]* Diagnosis 9 weeks gestation of - Primary state, incidental Encounter for supervision of normal in multigravida in first trimester Screening for cervical cancer Screening for malignant neoplasm of the cervix documented in this encounter [facility] [place] [facility]* Diagnosis 12 weeks gestation of - Primary state, incidental Encounter for supervision of normal in multigravida in first trimester Constipation, unspecified constipation type documented in this encounter [facility] [place] [facility]* Diagnosis 17 weeks gestation of - Primary state, incidental Encounter for supervision of other normal in second trimester documented [facility] [place] [facility]* Diagnosis Sciatica, right side- Primary documented in [facility] [place] [facility]* Diagnosis Fatigue, unspecified type- Primary Headache, unspecified headache type documented in this encounter [facility] [place] [facility]* Diagnosis Encounter for supervision of other normal in second trimester- Primary 27 weeks gestation of state, incidental Heartburn during , antepartum Request for sterilization documented in this encounter [facility] [place] [facility]* Diagnosis Abnormal maternal glucose tolerance, antepartum- Primary [facility] Diagnosis Abnormal maternal glucose tolerance, antepartum documented [facility] this [facility] [place] [facility]* Diagnosis Dietary counseling- Primary Dietary surveillance and counseling Abnormal maternal glucose tolerance, antepartum documented in this encounter [facility] note* Diagnosis 29 weeks gestation of - Primary state, incidental Abnormal glucose in , antepartum Abnormal maternal glucose tolerance, antepartum Situational depression Adjustment disorder with depressed mood Supervision of other high risk pregnancies, first trimester documented in this encounter [facility] note* Diagnosis Diet controlled gestational diabetes mellitus (GDM) in third trimester- Primary 31 weeks gestation of state, incidental [facility] [place] [facility]* Diagnosis 31 weeks gestation of - Primary state, incidental Diet controlled gestational diabetes mellitus (GDM) in third trimester Supervision of other high risk pregnancies, first trimester documented in this encounter [facility] note* Diagnosis Diet controlled gestational diabetes mellitus (GDM) in third trimester- Primary Dietary counseling Dietary surveillance and counseling documented in this encounter [facility] note* Diagnosis 35 weeks gestation of - Primary state, incidental Diet controlled gestational diabetes mellitus (GDM) in third trimester Encounter for supervision of other normal in second trimester 27 weeks gestation of state, incidental Heartburn during , antepartum documented [facility] [place] [facility]* Diagnosis 36 weeks gestation of - Primary state, incidental Diet controlled gestational diabetes mellitus (GDM) in third trimester Encounter for supervision of other normal in second trimester documented in this encounter [facility] note* Diagnosis Encounter for ultrasound to check growth- Primary Encounter for routine screening for malformation using ultrasonics Diet controlled gestational diabetes mellitus (GDM) in third trimester 38 weeks gestation of state, incidental documented in this encounter [facility] note* Diagnosis Supervision of high risk in third trimester- Primary Unspecified high-risk Diet controlled gestational diabetes mellitus (GDM) in third trimester 38 weeks gestation of state, incidental documented in this encounter [facility] note* Diagnosis Onset Date Resolution Status Active labor at term acute Anxiety acute Care and examination of lactating mother acute Depression acute GDM, class A1 acute History of depression acute History of hemorrhage acute SROM (spontaneous rupture of membranes) acute Vaginal delivery acute [facility] Work Phone: Evaluation note* Diagnosis Retained placenta without hemorrhage, condition or complication- Primary documented in this encounter [facility] [place] [facility]* Diagnosis Retained placenta without hemorrhage, condition or complication- Primary endometritis Puerperal endometritis, condition or complication documented in this encounter [facility] [place] [facility]* Diagnosis Retained products of conception w/o hemorrhage but w other compl- Primary Retained portions of placenta or membranes, without hemorrhage, condition or complication endometritis Puerperal endometritis, condition or complication documented in this encounter [facility] note* Diagnosis state- Primary Routine follow-up History of gestational diabetes Personal history of gestational diabetes documented [facility] [place] [facility]* Diagnosis care and examination- Primary Routine follow-up Request for sterilization documented [facility] [place] [facility]* Diagnosis 35 weeks gestation of state, incidental documented in this encounter [facility] [place] [facility]* Diagnosis Sternal pain- Primary Chest pain, unspecified Palpitations Family history of early CAD Family history of ischemic heart disease Gastroesophageal reflux disease, unspecified whether esophagitis present documented in this encounter [facility] note* Diagnosis Itch- Primary Unspecified pruritic disorder documented in this encounter [facility] note* Diagnosis Local reaction to bee sting, accidental or unintentional, initial encounter- Primary documented in this encounter [facility] note* Diagnosis Eustachian tube dysfunction- Primary Dysfunction of Eustachian tube Overweight Overweight (BMI 25.0-29.9) Overweight Back ache Backache, unspecified Routine Papanicolaou smear- Primary Screening for malignant neoplasm of the cervix Backache Backache, unspecified Back ache Backache, unspecified Gastroesophageal reflux disease, unspecified whether esophagitis present- Primary Upper abdominal pain Abdominal pain, other specified site Sternal pain Chest pain, unspecified Palpitations documented in this encounter [facility] [place] [facility]* Diagnosis Eustachian tube dysfunction- Primary Dysfunction of Eustachian tube Overweight Overweight (BMI 25.0-29.9) Overweight Back ache Backache, unspecified Routine Papanicolaou smear- Primary Screening for malignant neoplasm of the cervix Backache Backache, unspecified Back ache Backache, unspecified Annual physical exam- Primary Routine general medical examination at a health care facility documented in this encounter [facility] note* Diagnosis Eustachian tube dysfunction- Primary Dysfunction of Eustachian tube Overweight Overweight (BMI 25.0-29.9) Overweight Back ache Backache, unspecified Routine Papanicolaou smear- Primary Screening for malignant neoplasm of the cervix Backache Backache, unspecified Back ache Backache, unspecified Gastroesophageal reflux disease, unspecified whether esophagitis present Upper abdominal pain Abdominal pain, other specified site documented in this encounter [facility] [place] [facility]* Diagnosis Eustachian tube dysfunction- Primary Dysfunction of Eustachian tube Overweight Overweight (BMI 25.0-29.9) Overweight Back ache Backache, unspecified Routine Papanicolaou smear- Primary Screening for malignant neoplasm of the cervix Backache Backache, unspecified Back ache Backache, unspecified Hiatal hernia with gastroesophageal reflux disease and esophagitis- Primary Gastroesophageal reflux disease, unspecified whether esophagitis present Upper abdominal pain Abdominal pain, other specified site documented in this encounter [facility] [place] [facility]* Diagnosis Eustachian tube dysfunction- Primary Dysfunction of Eustachian tube Overweight Overweight (BMI 25.0-29.9) Overweight Back ache Backache, unspecified Routine Papanicolaou smear- Primary Screening for malignant neoplasm of the cervix Backache Backache, unspecified Back ache Backache, unspecified Gastroesophageal reflux disease, unspecified whether esophagitis present Upper abdominal pain Abdominal pain, other specified site documented in this encounter [facility] [place] [facility]* Diagnosis Eustachian tube dysfunction- Primary Dysfunction of Eustachian tube Overweight Overweight (BMI 25.0-29.9) Overweight Back ache Backache, unspecified Routine Papanicolaou smear- Primary Screening for malignant neoplasm of the cervix Backache Backache, unspecified Back ache Backache, unspecified Gastroesophageal reflux disease, unspecified whether esophagitis present Upper abdominal pain Abdominal pain, other specified site documented in this encounter [facility] [place] [facility]* Diagnosis Eustachian tube dysfunction- Primary Dysfunction of Eustachian tube Overweight Overweight (BMI 25.0-29.9) Overweight Back ache Backache, unspecified Routine Papanicolaou smear- Primary Screening for malignant neoplasm of the cervix Backache Backache, unspecified Back ache Backache, unspecified Gastroesophageal reflux disease with esophagitis without hemorrhage- Primary Hiatal hernia Diaphragmatic hernia without mention of obstruction or gangrene documented in this encounter [facility] [place] [facility]* Diagnosis Eustachian tube dysfunction- Primary Dysfunction of Eustachian tube Overweight Overweight (BMI 25.0-29.9) Overweight Back ache Backache, unspecified Routine Papanicolaou smear- Primary Screening for malignant neoplasm of the cervix Backache Backache, unspecified Back ache Backache, unspecified Rectal bleeding- Primary Hemorrhage of rectum and anus Infectious colitis Infectious colitis, enteritis, and gastroenteritis Abdominal cramping Abdominal pain, unspecified site documented in this encounter [facility] [place] [facility]* Diagnosis Eustachian tube dysfunction- Primary Dysfunction of Eustachian tube Overweight Overweight (BMI 25.0-29.9) Overweight Back ache Backache, unspecified Routine Papanicolaou smear- Primary Screening for malignant neoplasm of the cervix Backache Backache, unspecified Back ache Backache, unspecified Gastroesophageal reflux disease, unspecified whether esophagitis present Upper abdominal pain Abdominal pain, other specified site documented in this encounter [facility] [place] [facility]* Diagnosis Eustachian tube dysfunction- Primary Dysfunction of Eustachian tube Overweight Overweight (BMI 25.0-29.9) Overweight Back ache Backache, unspecified Routine Papanicolaou smear- Primary Screening for malignant neoplasm of the cervix Backache Backache, unspecified Back ache Backache, unspecified Pain- Primary Generalized pain Pain Generalized pain documented in this encounter [facility] note* Diagnosis Eustachian tube dysfunction- Primary Dysfunction of Eustachian tube Overweight Overweight (BMI 25.0-29.9) Overweight Back ache Backache, unspecified Routine Papanicolaou smear- Primary Screening for malignant neoplasm of the cervix Backache Backache, unspecified Back ache Backache, unspecified Pain Generalized pain documented in this encounter [facility] note* Diagnosis Eustachian tube dysfunction- Primary Dysfunction of Eustachian tube Overweight Overweight (BMI 25.0-29.9) Overweight Back ache Backache, unspecified Routine Papanicolaou smear- Primary Screening for malignant neoplasm of the cervix Backache Backache, unspecified Back ache Backache, unspecified Viral illness- Primary Unspecified viral infection, in conditions classified elsewhere and of unspecified site documented in this encounter [facility] note* Diagnosis Eustachian tube dysfunction- Primary Dysfunction of Eustachian tube Overweight Overweight (BMI 25.0-29.9) Overweight Back ache Backache, unspecified Routine Papanicolaou smear- Primary Screening for malignant neoplasm of the cervix Backache Backache, unspecified Back ache Backache, unspecified 35 weeks gestation of state, incidental [facility] Diagnosis Eustachian tube dysfunction- Primary Dysfunction of Eustachian tube Overweight Overweight (BMI 25.0-29.9) Overweight Back ache Backache, unspecified Routine Papanicolaou smear- Primary Screening for malignant neoplasm of the cervix Backache Backache, unspecified Back ache Backache, unspecified Gastroesophageal reflux disease with esophagitis without hemorrhage- Primary Early satiety Dyspepsia Dyspepsia and other specified disorders of function of stomach Hiatal hernia Diaphragmatic hernia without mention of obstruction or gangrene Globus pharyngeus Gastrointestinal malfunction arising from mental factors [facility] Diagnosis Eustachian tube dysfunction- Primary Dysfunction of Eustachian tube Overweight Overweight (BMI 25.0-29.9) Overweight Back ache Backache, unspecified Routine Papanicolaou smear- Primary Screening for malignant neoplasm of the cervix Backache Backache, unspecified Back ache Backache, unspecified Dyspepsia Dyspepsia and other specified disorders of function of stomach [facility] Additional Instructions Thank you for trusting us with your care today! No clear life or limb threatening issues with your chest or heart were found. Please take Tylenol (2 pills, 650 mg) every 6 hours as needed for pain and fever control. Please return to the emergency department if your symptoms change or worsen. Please follow with your primary care physician for further outpatient evaluation and management.[facility] Work Phone: Note* LEXY ZAMUDIO DO: SIGN, VERIFY Event Display: EKG [ED AO] - CV Authored Date: [facility] Reason for referral (narrative)* Diagnostic Procedure Only (Routine) - Authorized Specialty Diagnoses / Procedures Referred By Contac t Referred To Contact [facility] Diagnoses Breast pain Procedures STEVE DIAGNOSTIC LEFT DIAGNOSTIC MAMMOGRAPHY COMPUTER-AIDED DETCJ Liss Mendez APRN.AUTO HEADLIGHT MECHANIC [address] [place] [address] [facility] [address] [facility] [place] [address] Referral ID Status Reason Start Date Expiration Date Visits Requested Visits Authorized [id number] Authorized Auto-Generat ed Referral 05/13/2023 06/11/2024 1 1 * Diagnostic Procedure Only (Routine) - Authorized Specialty Diagnoses / Procedures Referred By Dlac t Referred To Contact [facility] Diagnoses Breast pain Procedures US BREAST LTD LEFT US BREAST UNI REAL TIME WITH IMAGE LIMITED Liss Vaca APRN.CNP [address] [place] [address] [facility] [address] [place] [address] Referral ID Status Reason Start Date Expiration Date Visits Requested Visits Authorized [id number] Authorized Auto-Generat ed Referral 05/13/2023 06/11/2024 1 1 [facility] for referral (narrative)* Diagnostic Procedure Only (Routine) - Authorized Specialty Diagnoses / Procedures Referred By Victorino t Referred To Contact [facility] Diagnoses Breast pain Procedures STEVE DIAGNOSTIC BILATERAL DIAGNOSTIC MAMMOGRAPHY COMPUTER-AIDED DETCJ BI Liss Vaca APRN.CNP [facility] [place] [address] [facility] [address] [place] [address] Referral ID Status Reason Start Date Expiration Date Visits Requested Visits Authorized [id number] Authorized Auto-Generat ed Referral 05/21/2023 06/19/2024 1 1 [facility] for referral (narrative)* Diagnostic Procedure Only (Routine) - Pending Review Specialty Diagnoses / Procedures Referred By Victorino t Referred To Contact [facility] Diagnoses 9 weeks gestation of Encounter for supervision of normal in multigravida in first trimester Procedures NUCHAL TRANSLUCENCY WHI US NUCHAL TRANSLUCENCY 1ST GESTATION Shu Reeves APRN.MARINO [address] [place] [address] [address] Referral ID Status Reason Start Date Expiration Date Visits Requested Visits Authorized [id number] Pending Review Auto-Generat ed Referral 07/11/2023 07/10/2024 1 1 * Diagnostic Procedure Only (Routine) - Pending Review Specialty Diagnoses / Procedures Referred By Contac t Referred To [facility] Diagnoses 9 weeks gestation of Encounter for supervision of normal in multigravida in first trimester Procedures OBSTETRIC ULTRASOUND WHI US PREG UTERUS AFTER 1ST TRIMEST GESTATION Shu Reeves APRN.CNM [address] [place] [address] [address] Referral ID Status Reason Start Date Expiration Date Visits Requested Visits Authorized [id number] Pending Review Auto-Generat ed Referral 07/11/2023 07/10/2024 1 1 [facility] for referral (narrative)* Diagnostic Procedure Only (Routine) - Authorized Specialty Diagnoses / Procedures Referred By Contac t Referred To [facility] Diagnoses 29 weeks gestation of Procedures OBSTETRIC ULTRASOUND WHI US PREG UTERUS AFTER 1ST TRIMEST GESTATION Shu Reeves APRN.CNM [address] [place] [address] [address] Referral ID Status Reason Start Date Expiration Date Visits Requested Visits Authorized [id number] Authorized Auto-Generat ed Referral 12/01/2023 11/30/2024 1 1 [facility] Diagnostic Procedure Only (Routine) - Authorized Specialty Diagnoses / Procedures Referred By Contac t Referred To Contact [facility] Diagnoses 31 weeks gestation of Diet controlled gestational diabetes mellitus (GDM) in third trimester Supervision of other high risk pregnancies, first trimester Procedures OBSTETRIC ULTRASOUND WHI US PREG UTERUS AFTER 1ST TRIMEST GESTATION Abelino Kessler MD [address] [place] [address] [facility] [address] [place] [address] Referral ID Status Reason Start Date Expiration Date Visits Requested Visits Authorized [id number] Authorized Auto-Generat ed Referral 12/15/2023 12/14/2024 1 1 [facility] for referral (narrative)* Outpatient Procedure (Routine) - New Request Specialty Diagnoses / Procedures Referred By Victorino t Referred To Contact [facility] Diagnoses Sternal pain Palpitations Family history of early CAD Procedures ECG COMPLETE ECG ROUTINE ECG W/LEAST 12 LDS W/I&R Darya Quiñones APRN.AUT[employer] HEADLIGHT MECHANIC [address] [place] [address] [facility] [address] [place] [address] Referral ID Status Reason Start Date Expiration Date Visits Requested Visits Authorized [id number] New Request Auto-Generat ed Referral 04/28/2024 04/28/2025 1 1 * Outpatient Procedure (Routine) - Additional Clinical Info Needed Specialty Diagnoses / Procedures Referred By Victorino t Referred To Contact [facility] Diagnoses Sternal pain Palpitations Family history of early CAD Procedures ECHO ECHO TTHRC R-T 2D W/WOM-MODE COMPL SPEC&COLR D Darya Quiñones APRN.[employer]LIGHT MECHANIC [address] [place] [address] [facility] [address] [place] [address] Referral ID Status Reason Start Date Expiration Date Visits Requested Visits Authorized [id number] Additional Clinical Info Needed Auto-Generat ed Referral 04/28/2024 04/28/2025 1 1 [facility] for referral (narrative)* Outpatient Procedure (Routine) - Authorized Specialty Diagnoses / Procedures Referred By Dlac t Referred To Contact [facility] Diagnoses Gastroesophageal reflux disease, unspecified whether esophagitis present Upper abdominal pain Procedures EGD DIAGNOSTIC ESOPHAGOGASTRODUODENOSC OPY TRANSORAL DIAGNOSTIC Jose Delgado APRN.AUTO HEADLIGHT MECHANIC [address] [place] [address] [address] Referral ID Status Reason Start Date Expiration Date Visits Requested Visits Authorized [id number] Authorized Auto-Generat ed Referral 07/29/2025 1 1 [facility] for referral (narrative)* Outpatient Procedure (Routine) - Closed Specialty Diagnoses / Procedures Referred By Victorino t Referred To Contact [facility] Diagnoses Gastroesophageal reflux disease, unspecified whether esophagitis present Upper abdominal pain Procedures EGD DIAGNOSTIC ESOPHAGOGASTRODUODENOSC OPY TRANSORAL DIAGNOSTIC Jose Delgado APRN.AUTO HEADLIGHT MECHANIC [address] [place] [address] [address] Referral ID Status Reason Start Date Expiration Date V isits Requested Visits Authorized [id number] Closed Auto-Generate d Referral 07/29/2024 07/29/2025 1 1 [facility] for referral (narrative)* Diagnostic Procedure Only (Urgent) - Closed Specialty Diagnoses / Procedures Referred By Dlac t Referred To Contact XR IMAGING Diagnoses Pain Procedures XR FOOT GENERAL 3V AP/LAT/OBL RIGHT RADEX FOOT COMPLETE MINIMUM 3 VIEWS Abel Thornton APRN.AUT[employer] HEADLIGHT MECHANIC [address] [place] [address] [place] [address] Referral ID Status Reason Start Date Expiration Date V isits Requested Visits Authorized [id number] Closed Auto-Generate d Referral 10/13/2024 11/12/2025 1 1 [facility] for referral (narrative)* Diagnostic Procedure Only (Urgent) - Closed Specialty Diagnoses / Procedures Referred By Contac t Referred To Contact XR IMAGING Diagnoses Pain Procedures XR FOOT GENERAL 3V AP/LAT/OBL RIGHT RADEX FOOT COMPLETE MINIMUM 3 VIEWS Abel Thornton, SUSAN.AUTO HEADLIGHT MECHANIC [address] [place] [address] [place] [address] Referral ID Status Reason Start Date Expiration Date V isits Requested Visits Authorized [id number] Closed Auto-Generate d Referral 10/13/2024 11/12/2025 1 1 [facility] for visit Narrative* Diagnostic Procedure Only (Routine) - Closed Specialty Diagnoses / Procedures Referred By Contac t Referred To Contact [facility] Diagnoses 29 weeks gestation of Procedures OBSTETRIC ULTRASOUND I US PREG UTERUS AFTER 1ST TRIMEST GESTATION Shu Reeves APRN.CNM [address] [place] [address] [facility] [address] [place] [address] Referral ID Status Reason Start Date Expiration Date V isits Requested Visits Authorized [id number] Closed Auto-Generate d Referral 12/01/2023 11/30/2024 1 1 [facility] for visit Narrative* Outpatient Procedure (Routine) - Closed Specialty Diagnoses / Procedures Referred By Contac t Referred To Contact [facility] Diagnoses Gastroesophageal reflux disease, unspecified whether esophagitis present Upper abdominal pain Procedures EGD DIAGNOSTIC ESOPHAGOGASTRODUODENOSC OPY TRANSORAL DIAGNOSTIC Jose Delgado RECORDS MANAGEMENT ENGINEER.AUTO HEADLIGHT MECHANIC [address] [place] [address] [facility] [address] [place] [address] Referral ID Status Reason Start Date Expiration Date V isits Requested Visits Authorized [id number] Closed Auto-Generate d Referral 07/29/2024 07/29/2025 1 1 [facility] Diagnostic Procedure Only (Urgent) - Closed Specialty Diagnoses / Procedures Referred By Victorino bennett Referred To Contact XR IMAGING Diagnoses Pain Procedures XR FOOT GENERAL 3V AP/LAT/OBL RIGHT RADEX FOOT COMPLETE MINIMUM 3 VIEWS Abel Thornton APRN.AUTO HEADLIGHT MECHANIC [address] [place] [address] [place] [address] Referral ID Status Reason Start Date Expiration Date V isits Requested Visits Authorized [id number] Closed Auto-Generate d Referral 10/13/2024 11/12/2025 1 1 [facility] Summary Purpose Family History No Family History Records FoundNo Family History Records FoundNo Family History Records FoundNo Family History Records Found Advance Directives No Advanced Directives Records Found Advance Directive Response Recorded Date/ Time Living Will No November 01 8:52pm Power of Director Home Health No November 01, 2021 8:52pm Advance Directive Response Recorded Date/ Time Living Will No August 07 4:09pm Power of Director Home Health No August 07, 2023 4:09pm Advance Directive Response Recorded Date/ Time Living Will No December 13, 2023 11:32pm Power of Director Home Health No December 12 11:32pm Advance Directive Response Recorded Date/ Time Living Will No February 02, 2024 10:41pm Power of Director Home Health No February 01 10:41pm Health Concerns Infection Onset Date Last Indicated Resolved Time COVID-19 Rule-Out 06/25/2023 06/25/2023 Problem Noted Date Diagnosed Date [facility] Education - [facility]ON 07/11/2023 [place] - [place] 07/11/2023 Problem Noted Date Diagnosed Date [facility] Education - [facility]ON 07/11/2023 Education - [place] 07/11/2023 Problem Noted Date Diagnosed Date [facility] Education - COMMON 07/11/2023 Education - [place] 07/11/2023 Problem Noted Date Diagnosed Date [facility] Education - COMMON 07/11/2023 Education - [place] 07/11/2023 Problem Noted Date Diagnosed Date [facility] [...] CC Education - COMMON 07/11/2023 Education - [place] 07/11/2023 Problem Noted Date Diagnosed Date [facility] Education - COMMON 07/11/2023 Education - [place] 07/11/2023 Problem Noted Date Diagnosed Date [facility] Education - COMMON 07/11/2023 Education - [place] 07/11/2023 Problem Noted Date Diagnosed Date [facility] Education - [facility]ON 07/11/2023 Education - [place] 07/11/2023 Active Problems Noted Date Diagnosed Date [facility] Education - [place]ON 07/11/2023 Education - [place] 07/11/2023 Active Problems Noted Date Diagnosed Date [facility] Education - [place]ON 07/11/2023 Education - [place] 07/11/2023 Active Problems Noted Date Diagnosed Date [facility] Education - [place]ON 07/11/2023 Education - [place] 07/11/2023 Active Problems Noted Date Diagnosed Date [facility] Education - [place]ON 07/11/2023 Education - [place] 07/11/2023 Active Problems Noted Date Diagnosed Date [facility] Education - [place] 07/11/2023 Education - [place] 07/11/2023 Active Problems Noted Date Diagnosed Date [facility] Education - [facility]ON 07/11/2023 Education - [place] 07/11/2023 Chief Complaint and Reason for Visit Chief Complaint BODY ACHES Chief Complaint chest pain Chief Complaint chest pain VAG Reason for Visit Active labor at term Anxiety Care and examination of lactating mother Depression GDM, class A1 History of depression History of hemorrhage SROM (spontaneous rupture of membranes) Vaginal delivery Reason for Referral Specialty Diagnoses / Procedures Referred By Contac t Referred To Contact Gastroenterology Diagnoses Gastroesophageal reflux disease, unspecified whether esophagitis present Upper abdominal pain Procedures CONSULT TO GASTROENTEROLOGY OFFICE/OUTPATIENT NEW HIGH MDM 60 MINUTES Ishmael, SUSAN Lackey.AUTO HEADLIGHT MECHANIC [address] [place] [address] Referral ID Status Reason Start Date Expiration Date Visits Requested Visits Authorized [id number] Authorized PCP Requested Referral 06/09/2024 06/09/2025 1 1 Specialty Diagnoses / Procedures Referred By Contac t Referred To Contact Diagnoses Abnormal maternal glucose tolerance, antepartum Procedures CONSULT TO GESTATIONAL/ MERCHANDISING CONSULTANT OFFICE/OUTPATIENT NEW HIGH MDM 60 MINUTES Manuela Colbert MD [address] [place] [address] Referral ID Status Reason Start Date Expiration Date V isits Requested Visits Authorized [id number] Closed PCP Requested Referral Auto-Generated Referral 11/19/2023 11/18/2024 1 1 Specialty Diagnoses / Procedures Referred By Contac t Referred To Contact Nutrition Diagnoses Abnormal maternal glucose tolerance, antepartum Procedures CONSULT TO NUTRITION THERAPY MEDICAL NUTRITION ASSMT&IVNTJ INDIV EACH 15 AR MEDICAL NUTRITION ASSMT&IVNTJ INDIV EACH 15 AR MEDICAL NUTRITION ASSMT&IVNTJ INDIV EACH 15 AR MEDICAL NUTRITION ASSMT&IVNTJ INDIV EACH 15 AR Manuela Colbert MD [address] [place] [address] Referral ID Status Reason Start Date Expiration Date Visits Requested Visits Authorized [id number] Authorized PCP Requested Referral 11/19/2023 11/18/2024 1 1 Additional Source Comments Source Comments (unrecognize d section and content) In the event this informatio n is protected by the Federal Confidentiality of Alcohol and Drug Abuse Patient Records regulations: The Federal rules restrict any use of the information to criminally investigate or prosecute any alcohol or drug abuse patient.[facility] the event this information is protected by the Federal Confidentiality of Alcohol and Drug Abuse Patient Records regulations: The Federal rules restrict any use of the information to criminally investigate or prosecute any alcohol or drug abuse patient.[facility] the event this information is protected by the Federal Confidentiality of Alcohol and Drug Abuse Patient Records regulations: The Federal rules restrict any use of the information to criminally investigate or prosecute any alcohol or drug abuse patient.[facility] the event this information is protected by the Federal Confidentiality of Alcohol and Drug Abuse Patient Records regulations: The Federal rules restrict any use of the information to criminally investigate or prosecute any alcohol or drug abuse patient.[facility] the event this information is protected by the Federal Confidentiality of Alcohol and Drug Abuse Patient Records regulations: The Federal rules restrict any use of the information to criminally investigate or prosecute any alcohol or drug abuse patient.[facility] the event this information is protected by the Federal Confidentiality of Alcohol and Drug Abuse Patient Records regulations: The Federal rules restrict any use of the information to criminally investigate or prosecute any alcohol or drug abuse patient.[facility] the event this information is protected by the Federal Confidentiality of Alcohol and Drug Abuse Patient Records regulations: The Federal rules restrict any use of the information to criminally investigate or prosecute any alcohol or drug abuse patient.[facility] the event this information is protected by the Federal Confidentiality of Alcohol and Drug Abuse Patient Records regulations: The Federal rules restrict any use of the information to criminally investigate or prosecute any alcohol or drug abuse patient.[facility] the event this information is protected by the Federal Confidentiality of Alcohol and Drug Abuse Patient Records regulations: The Federal rules restrict any use of the information to criminally investigate or prosecute any alcohol or drug abuse patient.[facility] the event this information is protected by the Federal Confidentiality of Alcohol and Drug Abuse Patient Records regulations: The Federal rules restrict any use of the information to criminally investigate or prosecute any alcohol or drug abuse patient.[facility] the event this information is protected by the Federal Confidentiality of Alcohol and Drug Abuse Patient Records regulations: The Federal rules restrict any use of the information to criminally investigate or prosecute any alcohol or drug abuse patient.[facility] the event this information is protected by the Federal Confidentiality of Alcohol and Drug Abuse Patient Records regulations: The Federal rules restrict any use of the information to criminally investigate or prosecute any alcohol or drug abuse patient.[facility] the event this information is protected by the Federal Confidentiality of Alcohol and Drug Abuse Patient Records regulations: The Federal rules restrict any use of the information to criminally investigate or prosecute any alcohol or drug abuse patient.[facility] the event this information is protected by the Federal Confidentiality of Alcohol and Drug Abuse Patient Records regulations: The Federal rules restrict any use of the information to criminally investigate or prosecute any alcohol or drug abuse patient.[facility] the event this information is protected by the Federal Confidentiality of Alcohol and Drug Abuse Patient Records regulations: The Federal rules restrict any use of the information to criminally investigate or prosecute any alcohol or drug abuse patient.[facility] the event this information is protected by the Federal Confidentiality of Alcohol and Drug Abuse Patient Records regulations: The Federal rules restrict any use of the information to criminally investigate or prosecute any alcohol or drug abuse patient.[facility] the event this information is protected by the Federal Confidentiality of Alcohol and Drug Abuse Patient Records regulations: The Federal rules restrict any use of the information to criminally investigate or prosecute any alcohol or drug abuse patient.[facility] the event this information is protected by the Federal Confidentiality of Alcohol and Drug Abuse Patient Records regulations: The Federal rules restrict any use of the information to criminally investigate or prosecute any alcohol or drug abuse patient.[facility] the event this information is protected by the Federal Confidentiality of Alcohol and Drug Abuse Patient Records regulations: The Federal rules restrict any use of the information to criminally investigate or prosecute any alcohol or drug abuse patient.[facility] the event this information is protected by the Federal Confidentiality of Alcohol and Drug Abuse Patient Records regulations: The Federal rules restrict any use of the information to criminally investigate or prosecute any alcohol or drug abuse patient.[facility] the event this information is protected by the Federal Confidentiality of Alcohol and Drug Abuse Patient Records regulations: The Federal rules restrict any use of the information to criminally investigate or prosecute any alcohol or drug abuse patient.[facility] the event this information is protected by the Federal Confidentiality of Alcohol and Drug Abuse Patient Records regulations: The Federal rules restrict any use of the information to criminally investigate or prosecute any alcohol or drug abuse patient.[facility] the event this information is protected by the Federal Confidentiality of Alcohol and Drug Abuse Patient Records regulations: The Federal rules restrict any use of the information to criminally investigate or prosecute any alcohol or drug abuse patient.[facility] the event this information is protected by the Federal Confidentiality of Alcohol and Drug Abuse Patient Records regulations: The Federal rules restrict any use of the information to criminally investigate or prosecute any alcohol or drug abuse patient.[facility] the event this information is protected by the Federal Confidentiality of Alcohol and Drug Abuse Patient Records regulations: The Federal rules restrict any use of the information to criminally investigate or prosecute any alcohol or drug abuse patient.[facility] the event this information is protected by the Federal Confidentiality of Alcohol and Drug Abuse Patient Records regulations: The Federal rules restrict any use of the information to criminally investigate or prosecute any alcohol or drug abuse patient.[facility] the event this information is protected by the Federal Confidentiality of Alcohol and Drug Abuse Patient Records regulations: The Federal rules restrict any use of the information to criminally investigate or prosecute any alcohol or drug abuse patient.[facility] the event this information is protected by the Federal Confidentiality of Alcohol and Drug Abuse Patient Records regulations: The Federal rules restrict any use of the information to criminally investigate or prosecute any alcohol or drug abuse patient.[facility] the event this information is protected by the Federal Confidentiality of Alcohol and Drug Abuse Patient Records regulations: The Federal rules restrict any use of the information to criminally investigate or prosecute any alcohol or drug abuse patient.[facility] the event this information is protected by the Federal Confidentiality of Alcohol and Drug Abuse Patient Records regulations: The Federal rules restrict any use of the information to criminally investigate or prosecute any alcohol or drug abuse patient.[facility] the event this information is protected by the Federal Confidentiality of Alcohol and Drug Abuse Patient Records regulations: The Federal rules restrict any use of the information to criminally investigate or prosecute any alcohol or drug abuse patient.[facility] the event this information is protected by the Federal Confidentiality of Alcohol and Drug Abuse Patient Records regulations: The Federal rules restrict any use of the information to criminally investigate or prosecute any alcohol or drug abuse patient.[facility]In the event this information is protected by the Federal Confidentiality of Alcohol and Drug Abuse Patient Records regulations: The Federal rules restrict any use of the information to criminally investigate or prosecute any alcohol or drug abuse patient.[facility]In the event this information is protected by the Federal Confidentiality of Alcohol and Drug Abuse Patient Records regulations: The Federal rules restrict any use of the information to criminally investigate or prosecute any alcohol or drug abuse patient.[facility]In the event this information is protected by the Federal Confidentiality of Alcohol and Drug Abuse Patient Records regulations: The Federal rules restrict any use of the information to criminally investigate or prosecute any alcohol or drug abuse patient.[facility]In the event this information is protected by the Federal Confidentiality of Alcohol and Drug Abuse Patient Records regulations: The Federal rules restrict any use of the information to criminally investigate or prosecute any alcohol or drug abuse patient.[facility]In the event this information is protected by the Federal Confidentiality of Alcohol and Drug Abuse Patient Records regulations: The Federal rules restrict any use of the information to criminally investigate or prosecute any alcohol or drug abuse patient.[facility]In the event this information is protected by the Federal Confidentiality of Alcohol and Drug Abuse Patient Records regulations: The Federal rules restrict any use of the information to criminally investigate or prosecute any alcohol or drug abuse patient.[facility]In the event this information is protected by the Federal Confidentiality of Alcohol and Drug Abuse Patient Records regulations: The Federal rules restrict any use of the information to criminally investigate or prosecute any alcohol or drug abuse patient.[facility]In the event this information is protected by the Federal Confidentiality of Alcohol and Drug Abuse Patient Records regulations: The Federal rules restrict any use of the information to criminally investigate or prosecute any alcohol or drug abuse patient.[facility]In the event this information is protected by the Federal Confidentiality of Alcohol and Drug Abuse Patient Records regulations: The Federal rules restrict any use of the information to criminally investigate or prosecute any alcohol or drug abuse patient.[facility]In the event this information is protected by the Federal Confidentiality of Alcohol and Drug Abuse Patient Records regulations: The Federal rules restrict any use of the information to criminally investigate or prosecute any alcohol or drug abuse patient.[facility]In the event this information is protected by the Federal Confidentiality of Alcohol and Drug Abuse Patient Records regulations: The Federal rules restrict any use of the information to criminally investigate or prosecute any alcohol or drug abuse patient.[facility]In the event this information is protected by the Federal Confidentiality of Alcohol and Drug Abuse Patient Records regulations: The Federal rules restrict any use of the information to criminally investigate or prosecute any alcohol or drug abuse patient.[facility]In the event this information is protected by the Federal Confidentiality of Alcohol and Drug Abuse Patient Records regulations: The Federal rules restrict any use of the information to criminally investigate or prosecute any alcohol or drug abuse patient.[facility] HospitalIn the event this information is protected by the Federal Confidentiality of Alcohol and Drug Abuse Patient Records regulations: The Federal rules restrict any use of the information to criminally investigate or prosecute any alcohol or drug abuse patient.[facility] HospitalIn the event this information is protected by the Federal Confidentiality of Alcohol and Drug Abuse Patient Records regulations: The Federal rules restrict any use of the information to criminally investigate or prosecute any alcohol or drug abuse patient.[facility] HospitalIn the event this information is protected by the Federal Confidentiality of Alcohol and Drug Abuse Patient Records regulations: The Federal rules restrict any use of the information to criminally investigate or prosecute any alcohol or drug abuse patient.[facility] HospitalIn the event this information is protected by the Federal Confidentiality of Alcohol and Drug Abuse Patient Records regulations: The Federal rules restrict any use of the information to criminally investigate or prosecute any alcohol or drug abuse patient.[facility] HospitalIn the event this information is protected by the Federal Confidentiality of Alcohol and Drug Abuse Patient Records regulations: The Federal rules restrict any use of the information to criminally investigate or prosecute any alcohol or drug abuse patient.[facility] HospitalIn the event this information is protected by the Federal Confidentiality of Alcohol and Drug Abuse Patient Records regulations: The Federal rules restrict any use of the information to criminally investigate or prosecute any alcohol or drug abuse patient.[facility] HospitalIn the event this information is protected by the Federal Confidentiality of Alcohol and Drug Abuse Patient Records regulations: The Federal rules restrict any use of the information to criminally investigate or prosecute any alcohol or drug abuse patient.[facility] HospitalIn the event this information is protected by the Federal Confidentiality of Alcohol and Drug Abuse Patient Records regulations: The Federal rules restrict any use of the information to criminally investigate or prosecute any alcohol or drug abuse patient.[facility] HospitalIn the event this information is protected by the Federal Confidentiality of Alcohol and Drug Abuse Patient Records regulations: The Federal rules restrict any use of the information to criminally investigate or prosecute any alcohol or drug abuse patient.[facility] HospitalIn the event this information is protected by the Federal Confidentiality of Alcohol and Drug Abuse Patient Records regulations: The Federal rules restrict any use of the information to criminally investigate or prosecute any alcohol or drug abuse patient.[facility] HospitalIn the event this information is protected by the Federal Confidentiality of Alcohol and Drug Abuse Patient Records regulations: The Federal rules restrict any use of the information to criminally investigate or prosecute any alcohol or drug abuse patient.[facility] HospitalIn the event this information is protected by the Federal Confidentiality of Alcohol and Drug Abuse Patient Records regulations: The Federal rules restrict any use of the information to criminally investigate or prosecute any alcohol or drug abuse patient.[facility] HospitalIn the event this information is protected by the Federal Confidentiality of Alcohol and Drug Abuse Patient Records regulations: The Federal rules restrict any use of the information to criminally investigate or prosecute any alcohol or drug abuse patient.[facility] HospitalIn the event this information is protected by the Federal Confidentiality of Alcohol and Drug Abuse Patient Records regulations: The Federal rules restrict any use of the information to criminally investigate or prosecute any alcohol or drug abuse patient.[facility] HospitalIn the event this information is protected by the Federal Confidentiality of Alcohol and Drug Abuse Patient Records regulations: The Federal rules restrict any use of the information to criminally investigate or prosecute any alcohol or drug abuse patient.[facility] HospitalIn the event this information is protected by the Federal Confidentiality of Alcohol and Drug Abuse Patient Records regulations: The Federal rules restrict any use of the information to criminally investigate or prosecute any alcohol or drug abuse patient.[facility] HospitalIn the event this information is protected by the Federal Confidentiality of Alcohol and Drug Abuse Patient Records regulations: The Federal rules restrict any use of the information to criminally investigate or prosecute any alcohol or drug abuse patient.[facility] HospitalIn the event this information is protected by the Federal Confidentiality of Alcohol and Drug Abuse Patient Records regulations: The Federal rules restrict any use of the information to criminally investigate or prosecute any alcohol or drug abuse patient.[facility] HospitalIn the event this information is protected by the Federal Confidentiality of Alcohol and Drug Abuse Patient Records regulations: The Federal rules restrict any use of the information to criminally investigate or prosecute any alcohol or drug abuse patient.[facility] HospitalIn the event this information is protected by the Federal Confidentiality of Alcohol and Drug Abuse Patient Records regulations: The Federal rules restrict any use of the information to criminally investigate or prosecute any alcohol or drug abuse patient.[facility] HospitalIn the event this information is protected by the Federal Confidentiality of Alcohol and Drug Abuse Patient Records regulations: The Federal rules restrict any use of the information to criminally investigate or prosecute any alcohol or drug abuse patient.[facility] HospitalIn the event this information is protected by the Federal Confidentiality of Alcohol and Drug Abuse Patient Records regulations: The Federal rules restrict any use of the information to criminally investigate or prosecute any alcohol or drug abuse patient.[facility] HospitalIn the event this information is protected by the Federal Confidentiality of Alcohol and Drug Abuse Patient Records regulations: The Federal rules restrict any use of the information to criminally investigate or prosecute any alcohol or drug abuse patient.[facility] HospitalIn the event this information is protected by the Federal Confidentiality of Alcohol and Drug Abuse Patient Records regulations: The Federal rules restrict any use of the information to criminally investigate or prosecute any alcohol or drug abuse patient.[facility] HospitalIn the event this information is protected by the Federal Confidentiality of Alcohol and Drug Abuse Patient Records regulations: The Federal rules restrict any use of the information to criminally investigate or prosecute any alcohol or drug abuse patient.[facility] HospitalIn the event this information is protected by the Federal Confidentiality of Alcohol and Drug Abuse Patient Records regulations: The Federal rules restrict any use of the information to criminally investigate or prosecute any alcohol or drug abuse patient.[facility] HospitalIn the event this information is protected by the Federal Confidentiality of Alcohol and Drug Abuse Patient Records regulations: The Federal rules restrict any use of the information to criminally investigate or prosecute any alcohol or drug abuse patient.[facility] HospitalIn the event this information is protected by the Federal Confidentiality of Alcohol and Drug Abuse Patient Records regulations: The Federal rules restrict any use of the information to criminally investigate or prosecute any alcohol or drug abuse patient.[facility] HospitalIn the event this information is protected by the Federal Confidentiality of Alcohol and Drug Abuse Patient Records regulations: The Federal rules restrict any use of the information to criminally investigate or prosecute any alcohol or drug abuse patient.[facility] HospitalIn the event this information is protected by the Federal Confidentiality of Alcohol and Drug Abuse Patient Records regulations: The Federal rules restrict any use of the information to criminally investigate or prosecute any alcohol or drug abuse patient.[facility] HospitalIn the event this information is protected by the Federal Confidentiality of Alcohol and Drug Abuse Patient Records regulations: The Federal rules restrict any use of the information to criminally investigate or prosecute any alcohol or drug abuse patient.[facility] HospitalIn the event this information is protected by the Federal Confidentiality of Alcohol and Drug Abuse Patient Records regulations: The Federal rules restrict any use of the information to criminally investigate or prosecute any alcohol or drug abuse patient.[facility] HospitalIn the event this information is protected by the Federal Confidentiality of Alcohol and Drug Abuse Patient Records regulations: The Federal rules restrict any use of the information to criminally investigate or prosecute any alcohol or drug abuse patient.[facility] HospitalIn the event this information is protected by the Federal Confidentiality of Alcohol and Drug Abuse Patient Records regulations: The Federal rules restrict any use of the information to criminally investigate or prosecute any alcohol or drug abuse patient.[facility] HospitalIn the event this information is protected by the Federal Confidentiality of Alcohol and Drug Abuse Patient Records regulations: The Federal rules restrict any use of the information to criminally investigate or prosecute any alcohol or drug abuse patient.[facility] HospitalIn the event this information is protected by the Federal Confidentiality of Alcohol and Drug Abuse Patient Records regulations: The Federal rules restrict any use of the information to criminally investigate or prosecute any alcohol or drug abuse patient.[facility] Reason for Visit (unrecogniz ed section and content) Reason Comments New Patient Evaluation Reason Comments ADD/ADHD Reason Onset Date Comments [...] Referred By Contac t Referred To Contact STRIP POLISHER Diagnoses READ Procedures OB ULTRASOUND POC Shu Reeves APRN.CN [address] [place] [address] Shu Reeves APRN.CN [address] [place] [address] Referral ID Status Reason Start Date Expiration Date V isits Requested Visits Authorized [id number] Pending Review 07/11/2023 10/09/2023 1 1 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 Reason Comments Question (OB Question) Reason Onset Date Comments Care 08/04/2023 Reason Comments Radiology US Specialty Diagnoses / Procedures Referred By Contac t Referred To Contact [facility] Diagnoses Breast pain Procedures US BREAST LTD LEFT US BREAST UNI REAL TIME WITH IMAGE LIMITED Liss Vaca APRN.AUTO HEADLIGHT MECHANIC [address] [place] [address] [facility] [address] [place] [address] Referral ID Status Reason Start Date Expiration Date V isits Requested Visits Authorized [id number] Closed Auto-Generate d Referral 05/13/2023 06/11/2024 1 [...] glucose tolerance, antepartum Procedures CONSULT TO GESTATIONAL/ MERCHANDISING CONSULTANT OFFICE/OUTPATIENT NEW HIGH MDM 60 MINUTES Manuela Colbert MD [address] [place] [address] Referral ID Status Reason Start Date Expiration Date V isits Requested Visits Authorized [id number] Closed PCP Requested Referral Auto-Generated Referral 11/19/2023 11/18/2024 1 1 Reason Comments Assessment Patient Education Specialty Diagnoses / Procedures Referred By Contac t Referred To Contact Nutrition Diagnoses Abnormal maternal glucose tolerance, antepartum Procedures CONSULT TO NUTRITION THERAPY MEDICAL NUTRITION ASSMT&IVNTJ INDIV EACH 15 AR MEDICAL NUTRITION ASSMT&IVNTJ INDIV EACH 15 AR MEDICAL NUTRITION ASSMT&IVNTJ INDIV EACH 15 AR MEDICAL NUTRITION ASSMT&IVNTJ INDIV EACH 15 AR Manuela Colbert MD [address] [place] [address] Referral ID Status Reason Start Date Expiration Date V isits Requested Visits Authorized [id number] Closed PCP Requested Referral 11/19/2023 11/18/2024 1 1 Reason Comments 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 - Other PRAF Reason Onset Date Comments Care 12/01/2023 Reason Comments Refill Request Reason Onset Date Comments Care 12/15/2023 Reason Comments FMLA Paperwork Reason Comments Reassessment Patient Education Reason Onset Date Comments Care 01/12/2024 Reason Onset Date Comments Care 01/19/2024 Reason Onset Date Comments Population Health Navigation Outreach 01/28/2024 OB/PEDS Reason Comments US Specialty Diagnoses / Procedures Referred By Contac t Referred To Contact [facility] Diagnoses 34 weeks gestation of Diet controlled gestational diabetes mellitus (GDM) in third trimester Procedures OBSTETRIC ULTRASOUND WHI US PREG UTERUS AFTER 1ST TRIMEST GESTATION Gill Kim, RECORDS MANAGEMENT ENGINEER.AUTO HEADLIGHT MECHANIC [address] [place] [address] [facility] [address] [place] [address] Referral ID Status Reason Start Date Expiration Date V isits Requested Visits Authorized [id number] Closed Auto-Generate d Referral 01/01/2024 12/31/2024 1 1 Reason Onset Date Comments Care 01/30/2024 Reason Comments Ob Delivery Note Reason Comments Early Reason Comments Routine Pre-Op Visit Reason Comments FMLA paperwork addition info Reason Comments Physical Annual, review medic ations Reason Comments Insect Bites & Stings Left bicep area, r edness, swelling, pain, Left arm area numb and tingly x 1 day Reason Comments Trauma Wasp sting on left a rm x 2 days Reason Comments Appeal Reason Comments Recheck 6 week follow up Reason Comments Physical Reason Comments GERD Upper abdominal pain Specialty Diagnoses / Procedures Referred By Victorino t Referred To Contact Gastroenterology Diagnoses Gastroesophageal reflux disease, unspecified whether esophagitis present Upper abdominal pain Procedures CONSULT TO GASTROENTEROLOGY OFFICE/OUTPATIENT [facility] 60 MINUTES Darya Quiñones RECORDS MANAGEMENT ENGINEER.AUTO HEADLIGHT MECHANIC [address] [place] [address] Referral ID Status Reason Start Date Expiration Date V isits Requested Visits Authorized [id number] Closed PCP Requested Referral 06/09/2024 06/09/2025 1 1 Reason Comments Recheck EGD done Reason Comments Pain (foot) right x 4-5 days,. d enies injury Reason Comments Cough SALAZAR, sore throat, fev er, body aches x 2 days Reason Onset Date Comments Refill Request 11/04/2024 Reason Comments Medication Problem Refill Request Reason Comments Question Reason Comments Recheck GERD Reason Comments Radiology NM Specialty Diagnoses / Procedures Referred By Victorino t Referred To Contact [facility] Diagnoses Dyspepsia Procedures NM GASTRIC EMPTYING SOLID GASTRIC EMPTYING STUDY Jose Delgado, RECORDS MANAGEMENT ENGINEER.AUTO HEADLIGHT MECHANIC [address] [place] [address] Phone: tel: fax: [facility] [address] [place] [address] Phone: tel: Referral ID Status Reason Start Date Expiration Date V isits Requested Visits Authorized [id number] Closed Auto-Generate d Referral 01/25/2025 10/05/2025 1 1 Reason Comments Patient Question Care Teams (unrecognized sec tion and content) Superintendent Maintenance Relationship Specialty Start Date End Date Kishor Hernandez MD [address] [facility] [place] [address] PCP - General Internal Medicine 03/25/16 Superintendent Maintenance Relationship Specialty Start Date End Date Kishor Hernandez MD [address] [facility] [place] [address] PCP - General Internal Medicine 03/25/16 Superintendent Maintenance Relationship Specialty Start Date End Date Kishor Hernandez MD [address] [facility] [place] [address] PCP - General Internal Medicine 03/25/16 Superintendent Maintenance Relationship Specialty Start Date End Date Kishor Hernandez MD [address] [facility] [place] [address] PCP - General Internal Medicine 03/25/16 Superintendent Maintenance Relationship Specialty Start Date End Date Kishor Hernandez MD [address] [facility] [place] [address] PCP - General Internal Medicine 03/25/16 Superintendent Maintenance Relationship Specialty Start Date End Date Kishor Hernandez MD [address] [facility] [place] [address] PCP - General Internal Medicine 03/25/16 Team Status: Active Member Role Status Dates Dr. Yoandy Gates MD Family Provider Active Dr. Kishor Hernandez MD Primary Care Provider Active Team Status: Inactive Member Role Status Dates Dr. Kishor Hernandez MD Primary Care Provider Active Hai Chavira ELECTRIC SHAVER MECHANIC, ELECTRIC SHAVER MECHANIC-C Attending Provider, Referring Provi yumiko Active Superintendent Maintenance Relationship Specialty Start Date End Date Kishor Hernandez MD [address] [facility] [place] [address] PCP - General Internal Medicine 03/25/16 Superintendent Maintenance Relationship Specialty Start Date End Date Kishor Hernandez MD [address] [place] [address] PCP - General Internal Medicine 03/25/16 Superintendent Maintenance Relationship Specialty Start Date End Date Kishor Hernandez MD [address] [place] [address] PCP - General Internal Medicine 03/25/16 Superintendent Maintenance Relationship Specialty Start Date End Date Kishor Hernandez MD [address] [place] [address] PCP - General Internal Medicine 03/25/16 Superintendent Maintenance Relationship Specialty Start Date End Date Kishor Hernandez MD [address] [place] [address] PCP - General Internal Medicine 03/25/16 Superintendent Maintenance Relationship Specialty Start Date End Date Kishor Hernandez MD [address] [place] [address] PCP - General Internal Medicine 03/25/16 Superintendent Maintenance Relationship Specialty Start Date End Date Kishor Hernandez MD [address] [place] [address] PCP - General Internal Medicine 03/25/16 Superintendent Maintenance Relationship Specialty Start Date End Date Kishor Hernandez MD [address] [place] [address] PCP - General Internal Medicine 03/25/16 Superintendent Maintenance Relationship Specialty Start Date End Date Kishor Hernandez MD [address] [place] [address] PCP - General Internal Medicine 03/25/16 Superintendent Maintenance Relationship Specialty Start Date End Date Kishor Hernandez MD [address] [place] [address] PCP - General Internal Medicine 03/25/16 Team Status: Inactive Member Role Status Dates Dr. Kishor Hernandez MD Primary Care Provider Active Dr. Trent Frausto DO Emergency Provider Active Superintendent Maintenance Relationship Specialty Start Date End Date Kishor Hernandez MD [address] [place] [address] PCP - General Internal Medicine 03/25/16 Superintendent Maintenance Relationship Specialty Start Date End Date Kishor Hernandez MD [address] [place] [address] PCP - General Internal Medicine 03/25/16 Superintendent Maintenance Relationship Specialty Start Date End Date Kishor Hernandez MD [address] [place] [address] PCP - General Internal Medicine 03/25/16 Superintendent Maintenance Relationship Specialty Start Date End Date Kishor Hernandez MD [address] [place] [address] PCP - General Internal Medicine 03/25/16 Superintendent Maintenance Relationship Specialty Start Date End Date Kishor Hernandez MD [address] [place] [address] PCP - General Internal Medicine 03/25/16 Superintendent Maintenance Relationship Specialty Start Date End Date Kishor Hernandez MD [address] [place] [address] PCP - General Internal Medicine 03/25/16 Superintendent Maintenance Relationship Specialty Start Date End Date Kishor Hernandez MD [address] [facility] [place] [address] PCP - General Internal Medicine 03/25/16 Superintendent Maintenance Relationship Specialty Start Date End Date Kishor Hernandez MD [address] [facility] [place] [address] PCP - General Internal Medicine 03/25/16 Superintendent Maintenance Relationship Specialty Start Date End Date Kishor Hernandez MD [address] [facility] [place] [address] PCP - General Internal Medicine 03/25/16 Superintendent Maintenance Relationship Specialty Start Date End Date Kishor Hernandez MD [address] [facility] [place] [address] PCP - General Internal Medicine 03/25/16 Superintendent Maintenance Relationship Specialty Start Date End Date Kishor Hernandez MD [address] [facility] [place] [address] PCP - General Internal Medicine 03/25/16 Superintendent Maintenance Relationship Specialty Start Date End Date Kishor Hernandez MD [address] [facility] [place] [address] PCP - General Internal Medicine 03/25/16 Team Status: Inactive Member Role Status Dates Dr. Kishor Hernandez MD Primary Care Provider Active Dr. Rony Burgess DO Emergency Provider Active Superintendent Maintenance Relationship Specialty Start Date End Date Kishor Hernandez MD [address] [facility] [place] [address] PCP - General Internal Medicine 03/25/16 Superintendent Maintenance Relationship Specialty Start Date End Date Kishor Hernandez MD [address] [facility] [place] [address] PCP - General Internal Medicine 03/25/16 Superintendent Maintenance Relationship Specialty Start Date End Date Kishor Hernandez MD [address] [facility] [place] [address] PCP - General Internal Medicine 03/25/16 Superintendent Maintenance Relationship Specialty Start Date End Date Kishor Hernandez MD [address] [facility] [place] [address] PCP - General Internal Medicine 03/25/16 Superintendent Maintenance Relationship Specialty Start Date End Date Kishor Hernandez MD [address] [facility] [place] [address] PCP - General Internal Medicine 03/25/16 Team Status: Inactive Member Role Status Dates Dr. Kishor Hernandez MD Primary Care Provider Active Shu Reeves CNM Admit Provider, Attending Provider Active Team Status: Inactive Member Role Status Dates Dr. Kishor Hernandez MD Primary Care Provider Active Dr. Rony Burgess DO Attending Provider, Emergency P alvarado Active Superintendent Maintenance Relationship Specialty Start Date End Date Kishor Hernandez MD [address] [facility] [place] [address] PCP - General Internal Medicine 03/25/16 Superintendent Maintenance Relationship Specialty Start Date End Date Kishor Hernandez MD [address] [facility] [place] [address] PCP - General Internal Medicine 03/25/16 Superintendent Maintenance Relationship Specialty Start Date End Date Kishor Hernandez MD [address] [facility] [place] [address] PCP - General Internal Medicine 03/25/16 Superintendent Maintenance Relationship Specialty Start Date End Date Kishor Hernandez MD [address] [place], [place] [address] PCP - General Internal Medicine 03/25/16 Superintendent Maintenance Relationship Specialty Start Date End Date Kishor Hernandez MD [address] [place], [place] [address] PCP - General Internal Medicine 03/25/16 Superintendent Maintenance Relationship Specialty Start Date End Date Kishor Hernandez MD [address] [place], [place] [id number] PCP - General Internal Medicine 03/25/16 Patrizia Trevizo PA-C [address] [place] [phone] [employer] [facility] 09/12/24 Darya Quiñones APRN.CNP [address] [place], [place] [phone] [employer] [facility] Internal [facility] 09/12/24 Daly Hwang PA-C [address] [place] [address] [employer] [facility] 09/12/24 Superintendent Maintenance Relationship Specialty Start Date End Date Kishor Hernandez MD [address] [place] [address] PCP - General Internal Medicine 03/25/16 Patrizia Trevizo PA-C [address] [place] [address] [phone] [employer] [facility] Family [facility] 09/12/24 Darya Quiñones APRN.AUTO HEADLIGHT MECHANIC [address] [place] [address] [employer] [facility] Internal Medicine 09/12/24 Daly Hwang PA-C [address] [place] [address] [employer] [facility] 09/12/24 Superintendent Maintenance Relationship Specialty Start Date End Date Kishor Hernandez MD [address] [place] [address] PCP - General Internal Medicine 03/25/16 Patrizia Trevizo PA-C [address] [place] [phone] [employer] [facility] Family [facility] 09/12/24 Darya Quiñones APRN.AUTO HEADLIGHT MECHANIC [address] [facility] [place] [address] [employer] [facility] Internal Medicine 09/12/24 Daly Hwang PA-C [address] [place] [address] [employer] [facility] Family [facility] 09/12/24 Superintendent Maintenance Relationship Specialty Start Date End Date Kishor Hernandez MD [address] [place] [address] PCP - General Internal Medicine 03/25/16 Patrizia Trveizo PA-C [address] [place] [phone] [employer] [facility] 09/12/24 Darya Quiñones APRN.AUTO HEADLIGHT MECHANIC [address] [place] [address] [employer] [facility] Internal Medicine 09/12/24 Daly Hwang PA-C [address] [place] [address] [employer] [facility] 09/12/24 Superintendent Maintenance Relationship Specialty Start Date End Date Kishor Hernandez MD [address] [place] [address] PCP - General Internal Medicine 03/25/16 Patrizia Trevizo PA-C [address] [place] [phone] [employer] [facility] Family Medicine 09/12/24 Darya Quiñones APRN.AUTO HEADLIGHT MECHANIC [address] [place] [address] [employer] [facility] Internal Medicine 09/12/24 Daly Hwang PA-C [address] [place] [address] [employer] Family [facility] 09/12/24 Superintendent Maintenance Relationship Specialty Start Date End Date Kishor Hernandez MD [address] [place] [address] PCP - General Internal Medicine 03/25/16 Patrizia Trevizo PA-C [address] [place] [address] [employer] [facility] Family [facility] 09/12/24 Darya Quiñones APRN.AUTO HEADLIGHT MECHANIC [address] [place] [address] [employer] [facility] Internal Medicine 09/12/24 Daly Hwang PA-C [address] [facility] [place] [address] [employer] [facility] Family Medicine 09/12/24 Superintendent Maintenance Relationship Specialty Start Date End Date Kishor Hernandez MD [address] [facility] [place] [address] PCP - General Internal Medicine 03/25/16 Patrizia Trevizo PA-C [address] [place], [place] [id number] [phone] [employer] [facility] Family [facility] 09/12/24 Darya Quiñones APRN.AUTO HEADLIGHT MECHANIC [address] [place] [address] [employer] [facility] Internal Medicine 09/12/24 Daly Hwang PA-C [address] [place] [address] [employer] [facility] 09/12/24 Superintendent Maintenance Relationship Specialty Start Date End Date Kishor Hernandez MD [address] [place] [address] PCP - General Internal Medicine 03/25/16 Patrizia Trevizo PA-C [address] [place], [place] [phone] [employer] [facility] Family [facility] 09/12/24 Darya Quiñones APRN.AUTO HEADLIGHT MECHANIC [address] [place] [address] [employer] [facility] Internal Medicine 09/12/24 Daly Hwang PA-C [address] [place] [address] [employer] [facility] 09/12/24 Superintendent Maintenance Relationship Specialty Start Date End Date Kishor Hernandez MD [address] [place] [address] PCP - General Internal Medicine 03/25/16 Patrizia Trevizo PA-C [address] [place] [phone] [employer] [facility] 09/12/24 Darya Quiñones APRN.AUTO HEADLIGHT MECHANIC [address] [place] [address] [employer] [facility] Internal Medicine 09/12/24 Dayl Hwang PA-C [address] [place] [address] [employer] [facility] 09/12/24 Superintendent Maintenance Relationship Specialty Start Date End Date Kishor Hernandez MD [address] [place] [address] PCP - General Internal Medicine 03/25/16 Patrizia Trevizo PA-C [address] [place] [phone] [employer] [facility] Family [facility] 09/12/24 Darya Quiñones APRN.AUTO HEADLIGHT MECHANIC [address] [place] [address] [employer] [facility] Internal Medicine 09/12/24 Daly Hwang PA-C [address] [place] [address] [employer] [facility] 09/12/24 Superintendent Maintenance Relationship Specialty Start Date End Date Kishor Hernandez MD [address] [place], [place] [address]551 PCP - General Internal Medicine 03/25/16 Darya Quiñones APRN.AUTO HEADLIGHT MECHANIC [address] [place], [place] [phone] [employer] [facility] Internal Medicine 09/12/24 Superintendent Maintenance Relationship Specialty Start Date End Date Kishor Hernandez MD [address] [place], [place] [address]41 PCP - General Internal Medicine 03/25/16 Darya Quiñones APRN.AUTO HEADLIGHT MECHANIC [address] [place], [place] 034331 [employer] [facility] Internal Medicine 09/12/24 Superintendent Maintenance Relationship Specialty Start Date End Date Kishor Hernandez MD [address] [place], [place] [address]30[address] PCP - General Internal Medicine 03/25/16 Darya Quiñones APRN.AUTO HEADLIGHT MECHANIC [address] [place], [place] [phone] [employer] [facility] Internal Medicine 09/12/24 Care Team (unrecognized sect ion and content) Care Team Personnel Name: PHYSICIAN, NONE Position: Physician Member Role: Primary Care Physician Care Team Related Persons Name: OMAR DAVIS INFORMATION SOURCE (unrecogn ized section and content) DATE CREATED AUTHOR 01/22/2023 [facility] DATE CREATED AUTHOR AUTHOR'S ORGANIZ ATION 05/21/2024 [facility] ([place]) DATE CREATED AUTHOR AUTHOR'S ORGANIZ ATION 12/19/2024 [facility] DATE CREATED AUTHOR AUTHOR'S ORGANIZ ATION 03/23/2025 [facility] Goals (unrecognized section and content) Goals may be documented in a n alternate section FOR RECORDS PERTAINING TO PATIENTS WHO ARE [...] BE BASED ON THE PRIMARY CLINICAL RECORDS. [facility] Client[facility]. provides no warranty or guarantee of the accuracy or completeness of information in this document.
[2025-03-24 22:55] LABS: D-Dimer Quantitative (DVT/PE) 0.27 FEU/ug/m (0.27-0.49)
[2025-03-24 23:08] LABS: Lipase 22 U/L (13-75); Magnesium 2.2 mg/dL (1.5-2.2)
[2025-03-24 23:12] LABS: AST(SGOT) 31 U/L (<=31); Alanine Aminotransfer ALT/SGPT 20 U/L (<=34); Albumin, Serum 4.4 g/dL (3.5-5.0); Alkaline Phosphatase 97 U/L (35-104); Anion Gap 13 (5-15); BUN 12 mg/dL (4-19); BUN/Creat Ratio 13.5 RATIO (10-20); Bilirubin, Direct < 0.08 mg/dL (0.00-0.30); Carbon Dioxide 21.6 mmol/L (21.0-32.0); Chloride 106 mmol/L (98-108); Creatinine, Serum 0.88 mg/dL (0.70-1.20); EST Glomerular Filtration Rate 90 (>60); Estimated Creatinine Clearance 86.61 ml/min (50-250); Globulin 3.1 g/dL (2.2-4.2); Glucose 89 mg/dL (70-99); Potassium 4.4 mmol/L (3.3-5.1); Protein, Total 7.5 g/dL (5.9-8.4); Sodium Level 140 mmol/L (133-145); Total Bilirubin 0.33 mg/dL (0.00-1.30)
[2025-03-24 23:13] VITALS: BP 103/79; PULSE 70; RESP 12; O2SAT 96
[2025-03-24 23:26] LABS: Troponin T High Sensitivity < 6 ng/L (<=14)
[2025-03-24 23:34] LABS: Mucous, Urine 0 SEEN /hpf (<or=2+); Red Blood Cells-Urine 0 SEEN /hpf (0-5); White Blood Cells 0 SEEN /hpf (0-5)
[2025-03-24 23:37] LABS: Color, Urine Yellow (Yellow); Glucose, Dipstick Normal (Normal); Ketone-Dipstick Negative (Negative); Leukocyte Esterase-Dipstick Negative /ul (Negative); Nitrite-Dipstick Negative (Negative); Occult Blood-Urine Negative /ul (Negative); Protein-Dipstick Negative (Negative); Specific Gravity, Urine 1.015 (1.002-1.030); Urine Bilirubin Dipstick Negative (Negative); Urine Clarity Clear (Clear); Urine Urobilinogen Normal (Normal)
[2025-03-24 23:46] LABS: Squamous Epithelial Cells - UA 0-5 SEEN /hpf (5-10)
[2025-03-24 23:48] LABS: Bacteria RARE /hpf (None Seen)
[2025-03-24 23:49] LABS: Amorphous Sediment 1+
[2025-03-24 23:50] LABS: Internal QC Validated? YES +Cl - CLEAR BKGD; Pregnancy, Urine Negative Negative
[2025-03-25] VITALS: BP 109/59; PULSE 69; RESP 13; O2SAT 96
--- NOTE | 2025-03-25 00:21 | CT_ITS ---
PROCEDURE: CTA CHEST W/WO CONTRAST 03/25/2025 REASON FOR EXAM: CHEST/BACK PAIN TECHNIQUE: CTA CHEST W/WO CONTRAST Multiplanar Sagittal and Coronal images were obtained. CONTRAST: Isovue 370 VOLUME: 100 mL One or more dose reduction techniques were used (e.g., Automated exposure control, adjustment of the mA and/or kV according to patient size, use of iterative reconstruction technique). RADIATION DOSE SUMMARY: CTDlvol: 12.96 mGy DLP: 448 mGycm COMPARISON: Chest radiograph on 03/24/2025. FINDINGS: Normal enhancement of the main pulmonary artery and right and left pulmonary arteries. Normal enhancement of the bilateral peripheral pulmonary arteries. There is no demonstrated pulmonary embolism. Normal thoracic aorta and visualized great vessels. There is no demonstrated aortic dissection. Normal heart and pericardium. Normal mediastinum. Normal hilar regions. Normal visualized trachea and bronchi. The lungs are well expanded. Normal pulmonary parenchyma. Normal pleura. Normal chest wall structures. Normal osseous structures. Normal visualized upper abdomen. CT/CTA Chest W/WO Contrast IMPRESSION: No demonstrated pulmonary embolism or arterial dissection. Reading Location: [place] [address]
[2025-03-25 01:00] VITALS: BP 109/64; PULSE 73; RESP 12; O2SAT 96
--- NOTE | 2025-03-25 01:37 | EDS_ITS ---
HPI History of Present Illness Chief Complaint: Chest Pain Informant: patient and EMS Narrative Narrative: Patient is a 34-year-old female with past medical history of anxiety and depression. She states that roughly 30 minutes to an hour prior to arrival she had developed sharp pain that she felt was more in the lower mid chest region that she states seemed to radiate towards her back and up towards her neck. She states has been no recent trauma or excessive activity. She denies any recent travel or surgery or history of DVT/PE. She denies any family history of cardiac disease at a young age. She states that there is no associated nausea vomiting or diaphoresis. Patient states she called EMS secondary to her symptoms and she initially had thoughts of signing off and not coming to the hospital but with concern this could be potential cardiac in nature they did not advise her that her safest option is to come to the hospital for further care and therefore she presents at this time [facility] Medical History Care and examination of lactating mother Vaginal delivery History of depression History of hemorrhage GDM, class A1 SROM (spontaneous rupture of membranes) Active labor at term Infertility hemorrhage depression Gestational diabetes Anxiety Depression Ovarian cyst Home Medications ?Medication ?Instructions ?Recorded ?Last Taken ?Type sertraline 25 mg tablet 25 mg PO DAILY anxiety depr 08/07/23 02/01/24 History aspirin 81 mg tablet,delayed 81 mg PO DAILY 12/06/24 U nknown History release (Adult Low Dose Aspirin) famotidine 20 mg tablet 20 mg PO BID 12/06/24 Unknow n History hydrocodone-acetaminophen 5-325mg 1 tab PO Q6H PRN PRN pain 12/06/24 Unknown History 5mg-325mg bupropion HCl 75 mg tablet 75 mg PO BID 03/24/25 Unkno wn History omeprazole 40 mg capsule,delayed 40 mg PO BID 03/24/25 Unknown History release Allergy/AdvReac Type Severity Reaction Status Date / Time No Known Allergies Allergy Verified 03/24/25 22:20 Family History no significant family his Surgical History History of ankle surgery Social History household members: family housing: house Smoking Status: Current every day smoker tobacco type: e-cigarettes substance use type: does not use ROS ROS ED Constitutional Constitutional ED: Denies chills or fever(s) Eyes Eyes: Denies blurry vision or change in vision ENT ENT ED: Denies sore throat Cardiovascular Cardiovascular: Reports chest pain; Denies palpitations or racing heartbeat Respiratory/Chest Respiratory/Chest: Denies cough or dyspnea Gastrointestinal Gastrointestinal: Denies abdominal pain, diarrhea, nausea or vomiting Genitourinary Genitourinary ED: Denies dysuria or hematuria Musculoskeletal Musculoskeletal: Reports back pain Integumentary Denies rash Neurologic Neurologic: Denies headache(s) Psychiatric Psychiatric: Reports anxiety and depression Hematologic/Lymphatic Hematologic/Lymphatic: Denies easy bleeding or easy bruising EXAM Physical Exam Const Vital Signs: 03/24/25 22:14 03/24/25 22:14 03/24/25 23:13 Temperature 97.6 F L Temperature Source Oral Pulse Rate 73 70 Respiratory Rate 18 12 Respiratory Effort Normal Blood Pressure 120/88 H 103/79 Blood Pressure Mean 98 87 Pulse Ox 100 96 Oxygen Delivery Method Room Air Room Air 03/25/25 00:00 03/25/25 01:00 03/25/25 01:39 Temperature 97.6 F L Temperature Source Pulse Rate 69 73 75 Respiratory Rate 13 12 16 Respiratory Effort Blood Pressure 109/59 L 109/64 99/54 L Blood Pressure Mean 75 79 69 Pulse Ox 96 96 94 Oxygen Delivery Method Room Air Room Air Positive well nourished and well developed General Appearance ED: well developed; Negative for pallor HEENT HEENT Narrative: Normocephalic atraumatic Eyes PERRL and EOMs intact bilaterally General Eye ED: Negative for scleral icterus Neck supple and no JVD Neck Narrative: No nuchal rigidity or meningeal signs Chest Wall palpation of chest normal Chest Narrative: No bony deformity or subcutaneous emphysema noted Resp normal respiratory effort and clear to auscultation bilaterally Cardio regular rate and regular rhythm Rate: other Other Details: Heart is regular rate and rhythm without murmurs rubs or gallops Radial and carotid pulses are equal and symmetric No carotid bruit noted GI normal to inspection, nondistended, normoactive bowel sounds, non-tender, non- distended and no masses GI Narrative: Soft nontender and nondistended with normal active bowel sounds No voluntary guarding or rigidity or pulsatile mass Negative Parson sign Auscultation: normoactive bowel sounds Palpation: soft Back/Spine no CVA tenderness Extremity normal to inspection Extremity Narrative: No asymmetric edema no pitting edema negative Homans' sign bilaterally Neuro oriented x3, CN's II-XII intact bilaterally and no sensory deficits noted Sensorium / Orientation: alert Motor Exam: strength 5/5 throughout Psych mental status grossly normal Skin no rashes or lesions noted and no wounds General Skin Exam: Negative for jaundice or pallor MDM MDM MDM Narrative Medical decision making narrative: Patient arrived to the ER with stable vitals. Report of chest discomfort rating towards the back is concerning for atypical acute coronary syndrome versus cardiac dysrhythmia versus pneumonia or pneumothorax versus pulmonary embolus or dissection versus atypical presentation for biliary colic or UTI/pyelonephritis or kidney stone. Secondary to this a basic workup was obtained with chest x-ray and D-dimer. Patient's EKG was sinus rhythm her troponin is less than 6 going against ACS. Lab work shows no sign of acute kidney injury or clinically significant abnormality. Lipase is normal going against pancreatitis and liver enzymes are normal going against biliary colic or acute cholecystitis. D-dimer is also normal going against PE or dissection. Urine sample shows no sign of infection or blood going against UTI/pyelonephritis or kidney stone. Patient's chest x-ray revealed no acute lung pathology such as pneumonia or pneumothorax. After receiving medication the patient was reevaluated. I walked into the patient's room and she is sleeping. When I woke her up she reports that the pain is still present. Therefore with pain in the mid portion of the operative mid back and her symptoms even though her D-dimer is negative I did like to perform a CTA to 100% rule out pulmonary embolus lung pathology or dissection. CTA was negative. When I walked into the room to reevaluate the patient and inform her of the CTA results she was sleeping once again. Therefore at this time her vitals are stable her workup is negative and I do not feel there is need for further intervention in the ER. She will be given an outpatient abdominal ultrasound order as there is potential this is an atypical presentation for biliary colic. However as she does not have a positive Parson sign or guarding do not feel the need for an emergent CT especially as her liver enzymes are normal and she can have this done as an outpatient. History & Record Review Discussion w/independent historian: EMS personnel and Patient Lab Data Attestation: I reviewed the patient's lab results. Labs: Laboratory Results - last 24 hr 03/24/25 03/24/25 22:31 23:29 WBC 11.5 H RBC 4.61 Hgb 13.6 Hct 40.6 MCV 88.1 MCH 29.5 MCHC 33.5 RDW Std Deviation 41.2 RDW Coeff of Jamil 12.8 Plt Count 466 H MPV 9.7 Immature Gran % (Auto) 0.200 Neut % (Auto) 50.7 Lymph % (Auto) 37.7 George % (Auto) 6.6 Eos % (Auto) 3.8 Baso % (Auto) 1.0 Absolute Neuts (auto) 5.8 Absolute Lymphs (auto) 4.32 Nucleated RBC % 0 D-Dimer Quant (PE/DVT) 0.27 Sodium 140 Potassium 4.4 Chloride 106 Carbon Dioxide 21.6 Anion Gap 13 BUN 12 Creatinine 0.88 Estim Creat Clear Calc 86.61 Est GFR (MDRD) Non-Af 90 BUN/Creatinine Ratio 13.5 Glucose 89 Calcium 10.0 Magnesium 2.2 Total Bilirubin 0.33 Direct Bilirubin < 0.08 AST 31 ALT 20 Alkaline Phosphatase 97 Troponin T High Sens < 6 Total Protein 7.5 Albumin 4.4 Globulin 3.1 Lipase 22 Urine Color Yellow Urine Clarity Clear Urine pH 8.0 Ur Specific [place] 1.015 Urine Protein Negative Urine Glucose (UA) Normal Urine Ketones Negative Urine Occult Blood Negative Urine Nitrite Negative Urine Bilirubin Negative Urine Urobilinogen Normal Ur Leukocyte Esterase Negative Urine RBC 0 SEEN Urine WBC 0 SEEN Ur Squamous Epith Cells 0-5 SEEN Amorphous Sediment 1+ Urine Bacteria RARE Urine Mucus 0 SEEN Urine Test Negative Radiography Diagnostic Testing: Clinical Impression(s) from Imaging Studies Chest X-Ray 03/24/25 22:45 IMPRESSION: No evidence for acute abnormality. Reading Location: [place] [address] Chest CTA 03/25/25 00:21 IMPRESSION: No demonstrated pulmonary embolism or arterial dissection. Reading Location: [place] [address] Chest x-ray as interpreted by the emergency medicine physician reveals no acute infiltrate pneumothorax pleural effusion or widened mediastinum Discharge Plan Triage Chief Complaint: Chest Pain ED Provider: Flip Hatfield Dx/Rx/DC Orders Clinical Impression: Acute nonspecific chest pain with low risk of coronary artery disease, Anxiety and depression Instructions: ED Chest Pain, Uncertain Cause Prescriptions: No Action sertraline 25 mg tablet 25 mg PO DAILY Patient Comments: take 1 tablet by mouth once daily OKAY TO START WITH 1/2 TABLET D... (REFER TO PRESCRIPTION NOTES). omeprazole 40 mg capsule,delayed release(DR/EC) 40 mg PO BID bupropion HCl 75 mg tablet 75 mg PO BID hydrocodone-acetaminophen 5-325 mg tablet 1 tab PO Q6H PRN PRN (Reason: pain) famotidine 20 mg tablet 20 mg PO BID aspirin [Adult Low Dose Aspirin] 81 mg tablet,delayed release (DR/EC) 81 mg PO DAILY Stand Alone Forms: Work / School Excuse Other Ambulatory Orders: Abdomen Complete (Routine) Facility: [facility] - Location: [facility] Ordered By: Dr. Flip Hatfield Primary Care Provider: Tata Rock Referrals: Tata Rock MD [Primary Care Provider] - Activity Restrictions/Additional Instructions: Your workup showed no sign of of heart damage blood clot dissection or infection. Please follow-up with your family doctor to discuss further testing/repeat evaluation and/or referral if symptoms persist. Return to the ER should you have any further concerns Print Language: [place] Disposition Disposition: Home, Self Care Discharge Date/Time: 03/25/25 01:45
[2025-03-25 01:39] VITALS: BP 99/54; PULSE 75; RESP 16; TEMP 36.4; O2SAT 94
== END 2025-03-25 01:45 | disposition home or self-care (01) ==
PROVIDERS: Emergency Provider Emergency Medicine; PCP Internal Medicine; Visit Provider Emergency Medicine
DX: R07.9 Chest pain, unspecified (principal); E11.9 Type 2 diabetes mellitus without complications; F41.9 Anxiety disorder, unspecified; Z79.899 Other long term (current) drug therapy; F32.A Depression, unspecified; F17.290 Nicotine dependence, other tobacco product, uncomplicated
CPT/HCPCS: 71046; 71275; 80048; 80076; 81001; 81025; 83690; 83735; 84484; 85025; 85379; 93005; 96361; 96374; 99285; Q9967

== ENCOUNTER → 2025-04-07 | Outpatient (CLI) | payer MEDICAID, SELFPAY | END | disposition home or self-care (01) | LOC: US 08:29 | PROVIDERS: PCP Internal Medicine; Referring Provider Emergency Medicine; Visit Provider Emergency Medicine | DX: R10.9 Unspecified abdominal pain (principal) | CPT/HCPCS: 76700 ==

== ENCOUNTER 2025-04-14 17:38 | Emergency (ER) | payer MEDICAID, SELFPAY ==
[2025-04-14 17:38] VITALS: BP 144/91; PULSE 102; RESP 16; TEMP 35.8; O2SAT 99; BMI 33.4
[2025-04-14 19:38] VITALS: BP 133/80; PULSE 84; RESP 18; O2SAT 98
--- NOTE | 2025-04-14 19:50 | EDS_ITS ---
HPI History of Present Illness Chief Complaint: Abd Pain Narrative Narrative: Patient is a 34-year-old female with a past medical history of anxiety, depression, gestational diabetes who presented to the emergency department chief complaint of abdominal pain. Patient states that she has had abdominal pain off and on for the last several days and states that she feels like it is moving around and becoming worse. States that usually after she eats about an hour later her pain worsens. Patient states that she is nauseous but denies vomiting. Patient denies any previous abdominal surgeries. Patient denies any sick contacts [facility] Medical History Care and examination of lactating mother Vaginal delivery History of depression History of hemorrhage GDM, class A1 SROM (spontaneous rupture of membranes) Active labor at term Infertility hemorrhage depression Gestational diabetes Anxiety Depression Ovarian cyst Home Medications ?Medication ?Instructions ?Recorded ?Last Taken ?Type bupropion HCl 75 mg tablet 75 mg PO DAILY 03/24/25 Unk nown History omeprazole 40 mg capsule,delayed 40 mg PO BID 03/24/25 Unknown History release Allergy/AdvReac Type Severity Reaction Status Date / Time No Known Allergies Allergy Verified 04/14/25 17:41 Surgical History History of ankle surgery Social History household members: family housing: house Smoking Status: Current every day smoker tobacco type: e-cigarettes substance use type: does not use ROS ROS ED ROS Narrative Constitutional: Denies any fevers, chills, headaches, lightness, dizziness Eyes: Denies change in vision double vision blurry vision Cardiovascular: Denies chest pain Respiratory: Denies shortness of breath Abdomen: Of abdominal pain as noted above as well as nausea denies vomiting : Denies any painful urination, hematuria, polyuria Neurological: Denies any numbness, wheeze, tingling Musculoskeletal: Denies back pain Skin: Any rashes or lesions EXAM Physical Exam Narrative Exam Narrative: General: Patient lying in bed rest comfortably did not appear to be acute distress Head: Atraumatic, normocephalic Eyes: PERRL bilaterally, EOMI bilateral, no conjunctival injection noted Neck: Soft, supple, trachea midline Cardiovascular: Patient tachycardic with a regular rhythm Respiratory: Clear to auscultation bilaterally Abdomen: Soft, nondistended, tender to palpation left lower quadrant no rebound or guarding on exam Extremities: +5/5 strength noted in the bilateral upper and lower extremities Neurological: Patient following commands knew that she was at [facility] year is 2024 Skin: Warm, dry, intact no rashes or lesions noted Const Vital Signs: 04/14/25 17:38 04/14/25 19:38 Temperature 96.5 F L Temperature Source Oral Pulse Rate 102 H 84 Respiratory Rate 16 18 Blood Pressure 144/91 H 133/80 H Blood Pressure Mean 108 97 Pulse Ox 99 98 Oxygen Delivery Method Room Air Room Air MDM MDM MDM Narrative Medical decision making narrative: Patient is a 34-year-old female who presents to the emergency department the chief complaint of abdominal pain. On the differential diagnosis includes but not limited to diverticulitis, abscess, bowel obstruction, pancreatitis, cholecystitis. Once workup is obtained reviewed she will be reevaluated. Patient be given IV fluids morphine Zofran. Patient CBC reviewed and showed a white count of 11,000, hemoglobin was 13, platelet count was noted to be normal at 345. Patient sodium normal at 140, potassium normal 3.6, creatinine normal at 0.88. Patient's AST and ALT were 18 and 24 respectively. Patient lipase was 13, is negative. Patient urinalysis reviewed and showed no evidence of infection she does not have any urinary symptoms. Patient's CT abdomen pelvis with IV contrast reviewed showed no acute or active inflammatory intra-abdominal pathology. On reevaluation patient she is feeling better she would like to go home at this point time. Patient will be given prescriptions for Bentyl and Zofran. She was advised to follow-up with her doctor in outpatient setting return with worsening symptoms or concerns. She is agreeable spinal course concerns answered she was discharged home in stable condition. Lab Data Labs: Laboratory Results - last 24 hr 04/14/25 19:50 WBC 11.7 H RBC 4.36 Hgb 13.0 Hct 38.9 MCV 89.2 MCH 29.8 MCHC 33.4 RDW Std Deviation 41.0 RDW Coeff of Jamil 12.6 Plt Count 345 MPV 9.6 Immature Gran % (Auto) 0.300 Neut % (Auto) 66.8 Lymph % (Auto) 24.4 [place] % (Auto) 6.0 Eos % (Auto) 1.8 Baso % (Auto) 0.7 Absolute Neuts (auto) 7.8 H Absolute Lymphs (auto) 2.85 Nucleated RBC % 0 Sodium 140 Potassium 3.6 Chloride 107 Carbon Dioxide 21.4 Anion Gap 12 BUN 12 Creatinine 0.88 Estim Creat Clear Calc 84.53 Est GFR (MDRD) Non-Af 90 BUN/Creatinine Ratio 13.5 Glucose 93 Calcium 9.3 Total Bilirubin 0.61 AST 18 ALT 24 Alkaline Phosphatase 80 Total Protein 7.2 Albumin 4.3 Globulin 2.9 Albumin/Globulin Ratio 1.5 Lipase 13 Serum , Qual NEGATIVE Urine Color Yellow Urine Clarity Cloudy Urine pH 7.0 Ur Specific [place] 1.015 Urine Protein 15 H Urine Glucose (UA) Normal Urine Ketones Negative Urine Occult Blood Negative Urine Nitrite Negative Urine Bilirubin Negative Urine Urobilinogen 1 H Ur Leukocyte Esterase 25 H Radiography Diagnostic Testing: Clinical Impression(s) from Imaging Studies Abdomen/Pelvis CT 04/14/25 20:40 IMPRESSION: No acute or active inflammatory intra-abdominal pathology. Reading Location: [facility] Discharge Plan Triage Chief Complaint: Abd Pain ED Provider: Austen Love Dx/Rx/DC Orders Clinical Impression: Abdominal pain, History of anxiety, History of depression Prescriptions: No Action omeprazole 40 mg capsule,delayed release(DR/EC) 40 mg PO BID bupropion HCl 75 mg tablet 75 mg PO DAILY Primary Care Provider: Tata Rock Referrals: Tata Rock MD [Primary Care Provider] - Activity Restrictions/Additional Instructions: Follow-up with your doctor in outpatient setting. Return with worsening symptoms or concerns. Your blood work did not show any acute findings and your CT was normal. Use prescriptions as prescribed and return with worsening sy mptoms or any concerns Print Language: Azeri Disposition Disposition: Home, Self Care
[2025-04-14] MEDS: 0.9% Normal Saline (1000mL) 1,000 ML 999 ML IV (19:55)
[2025-04-14 20:10] LABS: Mucous, Urine 0 SEEN /hpf (<or=2+)
[2025-04-14 20:26] LABS: Hematocrit 38.9 % (37-47); Hemoglobin 13.0 g/dL (12.0-15.0); Immature Granulocytes Count 0.040 X10^3/uL (0.0-0.0); Mean Corp Hgb Conc 33.4 g/dL (32-36); Mean Corpuscular Volume 89.2 fL (81-99); Mean Platelet Vol. 9.6 fl (6.2-12.0); NRBC Flagged by Analyzer 0 % (0-5); Platelet Count 345 K/mm3 (150-450); RBC Distribution Width CV 12.6 % (11.6-14.6); RBC Distribution Width SD 41.0 fl (35.1-43.9); Red Blood Count 4.36 M/mm3 (4.2-5.4); White Blood Count 11.7 K/mm3 (4.4-11.0)
[2025-04-14 20:32] LABS: Color, Urine Yellow (Yellow); Glucose, Dipstick Normal (Normal); Ketone-Dipstick Negative (Negative); Leukocyte Esterase-Dipstick 25 /ul (Negative); Nitrite-Dipstick Negative (Negative); Occult Blood-Urine Negative /ul (Negative); Protein-Dipstick 15 mg/dl (Negative); Specific Gravity, Urine 1.015 (1.002-1.030); Urine Bilirubin Dipstick Negative (Negative)
[2025-04-14 20:34] LABS: Internal QC Validated? YES +Cl - CLEAR BKGD; Pregnancy, Serum, hCG Quali. NEGATIVE Negative; Record Kit Lot#, Serum Preg. 0000947241
[2025-04-14 20:38] LABS: AST(SGOT) 18 U/L (<=31); Alanine Aminotransfer ALT/SGPT 24 U/L (<=34); Albumin, Serum 4.3 g/dL (3.5-5.0); Alkaline Phosphatase 80 U/L (35-104); Anion Gap 12 (5-15); BUN 12 mg/dL (4-19); BUN/Creat Ratio 13.5 RATIO (10-20); Calcium,Total 9.3 mg/dL (7.6-11.0); Carbon Dioxide 21.4 mmol/L (21.0-32.0); Chloride 107 mmol/L (98-108); Estimated Creatinine Clearance 84.53 ml/min (50-250); Globulin 2.9 g/dL (2.2-4.2); Glucose 93 mg/dL (70-99); Potassium 3.6 mmol/L (3.3-5.1)
--- NOTE | 2025-04-14 20:40 | CT_ITS ---
PROCEDURE: ABDOMEN/PELVIS W IV CONT ONLY 04/14/2025 REASON FOR EXAM: LLQ PAIN TECHNIQUE: ABDOMEN/PELVIS W IV CONT ONLY Coronal and Sagittal reconstruction series were provided. CONTRAST: Isovue-300 VOLUME: 98 mL One or more dose reduction techniques were used (e.g., Automated exposure control, adjustment of the mA and/or kV according to patient size, use of iterative reconstruction technique. RADIATION DOSE SUMMARY: CTDlvol: 26.3 mGy DLP: 857.72 mGycm COMPARISON: Abdominal CT 04/04/2021 FINDINGS: Lung bases: Clear. Liver: Within normal limits. Gallbladder: Unremarkable, no biliary ductal dilatation. Spleen: Normal size and morphology. Pancreas: Unremarkable. Adrenals: Unremarkable. Kidneys: Normal, symmetric enhancement. No urolithiasis or hydronephrosis. Bladder: Underdistended, grossly unremarkable. Reproductive Organs: Uterus and adnexae appear within normal limits. Small crenulated peripherally enhancing right ovarian cyst compatible with a physiologic involuting corpus luteum. Bowel: Unremarkable. No obstruction or active inflammatory process. Normal appendix. Lymph nodes: No suspicious lymph node enlargement. Vasculature: The abdominal aorta and IVC are normal. Peritoneum / Retroperitoneum: No ascites or free air. Bones: No significant abnormality. CT/Abdomen/Pelvis W IV Cont ONLY IMPRESSION: No acute or active inflammatory intra-abdominal pathology. Reading Location: [id number]
[2025-04-14 20:49] LABS: Lipase 13 U/L (13-75)
[2025-04-14 21:00] VITALS: BP 100/69; PULSE 83; RESP 14; O2SAT 99
[2025-04-14 21:20] LABS: Squamous Epithelial Cells - UA 0-5 SEEN /hpf (5-10)
[2025-04-14 21:21] LABS: Red Blood Cells-Urine 0-5 SEEN /hpf (0-5)
[2025-04-14 21:28] VITALS: BP 100/69; PULSE 83; RESP 14; TEMP 36.6; O2SAT 99
== END 2025-04-14 21:32 | disposition home or self-care (01) ==
PROVIDERS: Emergency Provider Emergency Medicine; PCP Internal Medicine; Visit Provider Emergency Medicine
DX: R10.9 Unspecified abdominal pain (principal); F32.A Depression, unspecified; Z79.899 Other long term (current) drug therapy; F17.290 Nicotine dependence, other tobacco product, uncomplicated; F41.9 Anxiety disorder, unspecified
CPT/HCPCS: 74177; 80053; 81001; 83690; 84703; 85025; 96361; 96374; 96375; 99283; Q9967; A4216; J2405

== ENCOUNTER 2025-06-10 19:46 | Emergency (ER) | payer MEDICAID, SELFPAY ==
--- NOTE | 2025-06-10 | CT_ITS ---
PROCEDURE: CTA CHST, ABD, PEL W AND/OR WO 06/10/2025 REASON FOR EXAM: CHEST AND BACK PAIN, SUDDEN ONSET TECHNIQUE: Procedure Code: CTCTA.CHAP.2 Modality: CT Procedure: CTA CHST, ABD, PEL W AND/OR WO Coronal and Sagittal reconstruction series were provided. One or more dose reduction techniques were used (e.g., Automated exposure control, adjustment of the mA and/or kV according to patient size, use of iterative reconstruction technique. CONTRAST: OMNIPAQUE 350 VOLUME: 100 mL RADIATION DOSE SUMMARY: CTDlvol: 14.31 mGy DLP: 928 mGycm COMPARISON: CT scan on 04/14/2025. FINDINGS: Minimal sludge/tiny stones are suspected in the gallbladder. Bilateral ovarian simple cysts/follicles with the largest measuring 2.3 cm on the left side. Normal enhancement of the main pulmonary artery and right and left pulmonary arteries. Normal enhancement of the bilateral peripheral pulmonary arteries. There is no demonstrated pulmonary embolism. Normal thoracic aorta and visualized great vessels. There is no demonstrated aortic dissection. Normal heart and pericardium. Normal mediastinum. Normal hilar regions. Normal visualized trachea and bronchi. The lungs are well expanded. Normal pulmonary parenchyma. Normal pleura. Normal chest wall structures. Normal osseous structures. Normal liver. Normal extrahepatic biliary system. Normal spleen. Normal pancreas. Normal bilateral adrenal glands. Normal size of the right kidney. There is no right renal mass. There are no right renal calculi. There is no right hydronephrosis. Normal visualized right ureter. Normal size of the left kidney. There is no left renal mass. There are no left renal calculi. There is no left hydronephrosis. Normal visualized left ureter. Normal visualized stomach. Normal small intestine. Normal colon. The appendix is visualized and appears normal. There is no demonstrated peritoneal fluid. Normal abdominal aorta. Normal inferior vena cava. Normal retroperitoneum. Normal urinary bladder. There is no pelvic mass lesion or lymphadenopathy. There is no pelvic fluid. Normal abdominal wall. Normal osseous structures. CT/CTA Chst, Abd, Pel W and/or WO IMPRESSION: No demonstrated pulmonary embolism or arterial dissection. No CT evidence of an acute abnormality. Suspect sludge/tiny stones in the gallbladder. Bilateral ovarian simple cysts/follicles with the largest measuring 2.3 cm on t he left side. Reading [facility]
[2025-06-10 19:47] VITALS: BP 124/97; PULSE 107; RESP 25; TEMP 36.6; O2SAT 100
--- NOTE | 2025-06-10 19:56 | EKG12_ITS ---
Test Reason : CHEST PAIN Blood Pressure : */* mmHG Vent. Rate : 100 BPM Atrial Rate : 100 BPM P-R Int : 124 ms QRS Dur : 82 ms QT Int : 350 ms P-R-T Axes : 37 86 69 degrees QTcB Int : 451 ms Normal sinus rhythm Normal ECG Confirmed by STUART ESTRADA, KAYLA ([id number]), avid editor ELENO PINTO ([id number]) on 06/13/2025 9:34:17 AM Referred By: MICHAEL Confirmed By: KAYLA DAVIDSON MD
[2025-06-10 20:12] VITALS: BMI 33.6
[2025-06-10 20:51] VITALS: BP 115/82; PULSE 90; RESP 15; O2SAT 99
[2025-06-10 21:00] VITALS: BP 110/77; PULSE 86; RESP 18; O2SAT 99
[2025-06-10 21:27] LABS: Hematocrit 39.2 % (37-47); Hemoglobin 13.4 g/dL (12.0-15.0); Immature Granulocytes Count 0.100 X10^3/uL (0.0-0.0); Mean Corp Hgb Conc 34.2 g/dL (32-36); Mean Corpuscular Volume 86.5 fL (81-99); Mean Platelet Vol. 10.0 fl (6.2-12.0); NRBC Flagged by Analyzer 0 % (0-5); Platelet Count 376 K/mm3 (150-450); RBC Distribution Width CV 13.0 % (11.6-14.6); RBC Distribution Width SD 40.5 fl (35.1-43.9); Red Blood Count 4.53 M/mm3 (4.2-5.4); White Blood Count 19.5 K/mm3 (4.4-11.0)
[2025-06-10 21:34] LABS: AST(SGOT) 19 U/L (<=31); Alanine Aminotransfer ALT/SGPT 16 U/L (<=34); Albumin, Serum 4.5 g/dL (3.5-5.0); Alkaline Phosphatase 67 U/L (35-104); Anion Gap 12 (5-15); BUN 16 mg/dL (4-19); BUN/Creat Ratio 17.6 RATIO (10-20); Calcium,Total 9.7 mg/dL (7.6-11.0); Carbon Dioxide 18.9 mmol/L (21.0-32.0); Chloride 105 mmol/L (98-108); Estimated Creatinine Clearance 82.16 ml/min (50-250); Globulin 3.0 g/dL (2.2-4.2); Glucose 101 mg/dL (70-99); Internal QC Validated? YES +Cl - CLEAR BKGD; Lipase 14 U/L (13-75); Potassium 3.9 mmol/L (3.3-5.1); Pregnancy, Serum, hCG Quali. NEGATIVE Negative; Record Kit Lot#, Serum Preg. 947241
--- NOTE | 2025-06-10 21:42 | US_ITS ---
PROCEDURE: GALLBLADDER 06/10/2025 REASON FOR EXAM: PAIN TECHNIQUE: Procedure Code: USGB Modality: US Procedure: GALLBLADDER COMPARISON: CT abdomen April 14, 2025. FINDINGS: Peritoneal cavity: No free fluid is seen within the visualized right upper quadrant. Pancreas: The visualized pancreas is unremarkable in echotexture and echogenicity. No pancreatic ductal dilation seen. No peripancreatic fluid. No visible pancreatic ductal dilation. Liver: Hepatic length is 13.1 cm. Hepatic echotexture is slightly coarsened. Areas of elevated hepatic echogenicity consistent with geographic fatty infiltration. No perihepatic fluid. No intrahepatic biliary ductal dilation. No sonographic visible hepatic lesion seen. Gallbladder: The gallbladder measures 5 cm in length. No calcified gallstones or sludge within the gallbladder. The technologist reports a negative sonographic Parson's sign. No pericholecystic fluid. Gallbladder wall thickness is within normal limits at 1.5 mm. Common bile duct: The common bile duct is within normal limits at 3.4 mm measured at the matteo hepatis. Vascular: The hepatic venous confluence is patent with color flow. The main portal vein is patent with homogeneous antegrade color flow. Spectral evaluation of vasculature is not performed on this study. Right kidney: The right kidney measures 11 cm in length. Right renal echogenicity and cortical thickness are maintained. There is no hydronephrosis of the right kidney. No echogenic shadowing right renal calculus. No perinephric fluid. Color flow is seen at the right renal hilum. US/Gallbladder IMPRESSION: No sonographic evidence for acute cholecystitis. - No free fluid is seen. - Other findings discussed above. Reading Location: [id number]
--- NOTE | 2025-06-10 21:44 | EDS_ITS ---
HPI History of Present Illness Chief Complaint: Chest Pain Informant: patient Narrative Narrative: Patient is a 35-year-old female with history of anxiety, depression ovarian cyst presents with sudden onset of epigastric abdominal pain that radiated to her chest and is now rating to her right lower back. States is occurred while she was watching TV. She notes she had beef and broccoli and rice around 5 PM for dinner. She states she has had prior episodes similar to this but seemed worse after she eats dairy but this is worse than its ever been and lasted much longer. States the pain is starting to subside slightly but is still there. Is worse with certain movements. She has some associated nausea but no vomiting. States she gets waves of pain. Describes the pain as stabbing. Did not take any for pain prior to arrival. Is been concerned that she has been having gallbladder issues. Denies any concern for . No other complaints or concerns reported at this time. [facility] Medical History Care and examination of lactating mother Vaginal delivery History of depression History of hemorrhage GDM, class A1 SROM (spontaneous rupture of membranes) Active labor at term Infertility hemorrhage depression Gestational diabetes Anxiety Depression Ovarian cyst Home Medications ?Medication ?Instructions ?Recorded ?Last Taken ?Type omeprazole 40 mg capsule,delayed 40 mg PO BID 03/24/25 Unknown History release bupropion HCl 150 mg 24 hr tablet, 150 mg PO DAILY 02/27 Unknown History extended release (Wellbutrin XL) trazodone 50 mg tablet 50 mg PO QHS 06/10/25 Unknow n History Allergy/AdvReac Type Severity Reaction Status Date / Time No Known Allergies Allergy Verified 06/10/25 19:47 Surgical History History of ankle surgery Social History household members: family housing: house Smoking Status: Current every day smoker tobacco type: e-cigarettes substance use type: does not use ROS ROS ED Constitutional Constitutional ED: Denies chills or fever(s) Cardiovascular Cardiovascular: Reports chest pain Respiratory/Chest Respiratory/Chest: Denies cough Gastrointestinal Gastrointestinal: Reports abdominal pain and nausea; Denies constipation, diarrhea or vomiting Genitourinary Genitourinary ED: Denies dysuria Musculoskeletal Musculoskeletal: Reports back pain Neurologic Neurologic: Denies paresthesias or weakness Hematologic/Lymphatic Hematologic/Lymphatic: Denies easy bleeding or easy bruising EXAM Physical Exam Const Vital Signs: 06/10/25 19:47 06/10/25 20:12 06/10/25 20:51 Temperature 97.8 F Temperature Source Temporal Pulse Rate 107 H 90 Respiratory Rate 25 H 15 Respiratory Effort Normal Non-Labored Blood Pressure 124/97 H 115/82 H Blood Pressure Mean 106 93 Pulse Ox 100 99 Oxygen Delivery Method Room Air Room Air 06/10/25 21:00 06/10/25 22:00 06/10/25 23:00 Temperature Temperature Source Pulse Rate 86 83 93 Respiratory Rate 18 18 18 Respiratory Effort Blood Pressure 110/77 106/68 108/69 Blood Pressure Mean 88 80 82 Pulse Ox 99 100 100 Oxygen Delivery Method Room Air Room Air Room Air 06/11/25 00:00 Temperature Temperature Source Pulse Rate 70 Respiratory Rate 17 Respiratory Effort Blood Pressure 104/69 Blood Pressure Mean 80 Pulse Ox 99 Oxygen Delivery Method Room Air Positive well nourished and well developed Constitutional Narrative: Mildly uncomfortable appearing General Appearance ED: well developed HEENT Reports moist mucous membranes Eyes PERRL General Eye ED: Negative for scleral icterus Neck supple and no JVD Chest Wall inspection of chest normal and palpation of chest normal Chest Narrative: Patient points to her lower sternal area is where the pain is Resp normal respiratory effort and clear to auscultation bilaterally Cardio regular rhythm and no murmurs Rate: tachycardic GI non-tender, non-distended and no masses GI Narrative: Patient states she has pain in her epigastric/right upper quadrant but I am not able to reproduce any of the pain. She actually has some mild pain in her right lower quadrant but it is not at McBurney's Auscultation: normoactive bowel sounds Palpation: soft and tender; Negative for guarding Back/Spine no CVA tenderness Back/Spine Narrative: Tender to palpation of the right lumbar paraspinal back. No midline tenderness. Extremity normal to inspection General Extremety ED: Negative for edema General Extremity: Negative for edema Neuro oriented x3 Sensorium / Orientation: alert Motor Exam: Negative for general weakness Psych mental status grossly normal Skin no rashes or lesions noted and no wounds MDM MDM MDM Narrative Medical decision making narrative: Patient is evaluated for acute onset of pain in her lower chest that radiated to her back and is now more on the right back and right abdomen. She appears mildly uncomfortable and tachycardic upon arrival but has normal blood pressure. Differential includes is not limited to pancreatitis, cholecystitis, biliary colic, volvulus, renal colic, aortic dissection and pneumothorax. CBC, CMP, lipase, urinalysis urine is ordered. Patient initially declines any opioid pain medication. She is given Toradol and IV fluids as well as Zofran. She has a profound leukocytosis of 19.5. Because of that lactate is added on. This is normal. Remainder of her labs are all grossly normal. Urine is negative. Of right upper quadrant ultrasound is obtained looking for signs of cholecystitis. This is negative. She is reevaluated and is actually having worsening pain. With chest pain rating to her back and a leukocytosis will look for vascular cause and obtain a CTA of the chest abdomen pelvis to rule out dissection or other ischemic process. Patient is reevaluated. She is feeling better but still has pain. She voices frustration as she has been having ongoing GI issues and has been scoped as well as has small bowel follow-through. She states she is post to have what sounds like a HIDA scan but has not had that scheduled yet. Patient signed out to oncoming physician pending CTA result. Disposition per CTA. Suspect this is normal patient can be discharged home with further outpatient follow-up Lab Data Attestation: I reviewed the patient's lab results. Labs: Laboratory Results - last 24 hr 06/10/25 06/10/25 06/10/25 20:14 22:10 23:13 WBC 19.5 H RBC 4.53 Hgb 13.4 Hct 39.2 MCV 86.5 MCH 29.6 MCHC 34.2 RDW Std Deviation 40.5 RDW Coeff of Jamil 13.0 Plt Count 376 MPV 10.0 Immature Gran % (Auto) 0.500 Neut % (Auto) 76.7 H Lymph % (Auto) 15.2 L [place] % (Auto) 5.5 Eos % (Auto) 1.4 Baso % (Auto) 0.7 Absolute Neuts (auto) 15.0 H Absolute Lymphs (auto) 2.96 Nucleated RBC % 0 Sodium 136 Potassium 3.9 Chloride 105 Carbon Dioxide 18.9 L Anion Gap 12 BUN 16 Creatinine 0.90 Estim Creat Clear Calc 82.16 Est GFR (MDRD) Non-Af 87 BUN/Creatinine Ratio 17.6 Glucose 101 H Lactic Acid < 1.0 Calcium 9.7 Total Bilirubin 0.45 AST 19 ALT 16 Alkaline Phosphatase 67 Total Protein 7.4 Albumin 4.5 Globulin 3.0 Albumin/Globulin Ratio 1.5 Lipase 14 Serum , Qual NEGATIVE Urine Color Yellow Urine Clarity Clear Urine pH 6.0 Ur Specific [place] 1.020 Urine Protein 30 H Urine Glucose (UA) Normal Urine Ketones Negative Urine Occult Blood Negative Urine Nitrite Negative Urine Bilirubin Negative Urine Urobilinogen Normal Ur Leukocyte Esterase 25 H Urine RBC 0-5 SEEN Urine WBC 0-5 SEEN Ur Squamous Epith Cells 5-10 SEEN Urine Bacteria 0 SEEN Urine Mucus 0 SEEN Urine Test Negative Radiography Diagnostic Testing: Clinical Impression(s) from Imaging Studies Gallbladder Ultrasound 06/10/25 21:42 IMPRESSION: No sonographic evidence for acute cholecystitis. - No free fluid is seen. - Other findings discussed above. Reading Location: [facility] Discharge Plan Triage Chief Complaint: Chest Pain ED Provider: Tricia Eastman Dx/Rx/DC Orders Clinical Impression: Abdominal pain Prescriptions: No Action omeprazole 40 mg capsule,delayed release(DR/EC) 40 mg PO BID trazodone 50 mg tablet 50 mg PO QHS Patient Comments: hasn't started it yet bupropion HCl [Wellbutrin XL] 150 mg tablet extended release 24 hr 150 mg PO DAILY Primary Care Provider: Tata Rock Referrals: Tata Rock MD [Primary Care Provider] - Print Language: Montenegrin
[2025-06-10] MEDS: 0.9% Normal Saline (1000mL) 1,000 ML 999 ML IV (21:50)
--- OUTSIDE RECORDS SUMMARY | 2025-06-10 21:50 | XMS RPT_ITS | CCD ---
Author Organization [facility] Care Team Providers Care Dosimetrist Name Role Phone David ESTRADA, Kishor Primary Care Provider PHYSICIAN, NONE Primary Care Physician Unavailab Kishor Lamar MD Primary Care Provider Kishor Hernandez MD Primary Care Provider DAVID, KISHOR Primary Care Unavailable HAI CHAVIRA Referring Unavailable Kishor Hernandez MD Primary Care Provider HILLARY CHANCE MD Attending Unavailable Patrizia Trevizo PA-C Unavailable [phone] Older SENIOR PHYSICIAN.[employer]IT[employer] POLISHER, Darya Unavailable Daly Hwang PA-C Unavailable Dr. Kishor Hernandez MD Primary Care Provider Dr. Raul Light MD Attending Provider Dr. Raul Light MD Emergency Provider Dr. Flip Hatfield DO Emergency Provider Dr. Kishor Hernandez MD Primary Care Provider Dr. Flip Hatfield DO Attending Provider Dr. Flip Hatfield DO Referring Provider Dr. Austen Love DO Emergency Provider Kishor Hernandez Primary Care Unavailable Raul Light Attending Unavailable Patriciata, Kishor Primary Care Unavailable Jorge Hinson Attending Unavailable Austen Love Attending Unavailable Ganta, Kishor Primary Care Unavailable Patriciata, Kishor Primary Care Unavailable Flip Hatfield Referring Unavailable Flip Hatfield Attending Unavailable Ganta, Kishor Primary Care Unavailable Flip Hatfield Attending Unavailable GANTA, KISHOR Primary Care Unavailable Hritz, Jose Attending Unavailable GANTA, KISHOR Primary Care Unavailable OLDER, DARYA Referring Unavailable GANTA, KISHOR Primary Care Unavailable GANTA, KISHOR Attending Unavailable GANTA, KISHOR Primary Care Unavailable GANTA, KISHOR Primary Care Unavailable Hritz, Jose Attending Unavailable GANTA, KISHOR Primary Care Unavailable MANUELA LUZ Attending Unavail able GANTA, KISHOR Primary Care Unavailable GANTA, KISHOR Attending Unavailable GANTA, KISHOR Primary Care Unavailable OLDER, DARYA Referring Unavailable GANTA, KISHOR Primary Care Unavailable OLDER, DARYA Attending Unavailable SELF Referring Unavailable GANTA, KISHOR Primary Care Unavailable OLDER, DARYA Referring Unavailable GANTA, KISHOR Primary Care Unavailable GANTA, KISHOR Attending Unavailable GANTA, KISHOR Primary Care Unavailable Hritz, Jose Attending Unavailable OLDER, DARYA Referring Unavailable GANTA, KISHOR Primary Care Unavailable EDGARDO RAMIREZ Attending Unavailable Hritz, Jose Referring Unavailable GANTA, KISHOR Primary Care Unavailable ABEL THORNTON Referring Unavailable GANTA, KISHOR Primary Care Unavailable Hritz, Jose Referring Unavailable GANTA, KISHOR Primary Care Unavailable Medications Current Medications Medication Drug Class(es) [...] mg oral tablet (20 sources) Aminoketone Start: 03-24-2025 take 1 tablet by mouth once daily Bupropion Hcl 75 mg tablet Active 75 mg PO DAILY March 24, 2025 12:00am Start: 03-18-2025 End: 04-11-2025 take 1 tablet by mouth twice daily buPROPion (WELLBUTRIN) 75 mg tablet Take 1 tablet by mouth two times a day. 60 tablet 1 04/11/2025 Active Start: 05-13-2023 End: 07-11-2023 take 1 tablet by mouth once daily buPROPion XL (WELLBUTRIN XL) 150 mg 24 hr tablet Indications: Anxiety , Panic attacks Take 1 tablet by mouth once daily. 30 tablet 2 05/13/2023 07/11/2023 Discontinued (Course of therapy completed) Start: 09-30-2021 End: 08-07-2023 take 1 tablet by mouth once daily Bupropion Hcl 75 mg tablet Discontinued 75 mg PO DAILY September 30, 2021 1:00am August [...] Start: 01-22-2023 take 1 capsule by mo uth every eight hours as needed dicyclomine (BENTYL) 10 mg capsule Take 1 capsule by mouth three times daily as needed. 30 capsule 1 01/22/2023 Active Comment on above: Take 1 capsule by mo uth three times daily as needed. docosahexaenoic acid 200 mg oral capsule (20 sources) Start: 023 End: Docosahexanoic Acid 200 mg cap Take by [...] Comment on above: Take 1 tablet by [facility] twice daily for 7 days. omeprazole 40 mg delayed release oral capsule (19 sources) Proton Pump Inhibitor Start: End: take 1 capsule by mouth twice daily omeprazole (PRILOSEC) 40 mg capsule Indications: Gastroesophageal reflux disease with esophagitis without hemorrhage , Hiatal hernia Take 1 capsule by mouth two times a day. 180 capsule 01/24/2025 Active Start: 09-23-2024 End: 12-22-2024 take 1 [...] 20 mg oral tablet (1 source) Start: 05-01-20 End: 05-05-20 take 2 tablets by mouth once daily at mealtime predniSONE (DELTASONE) 20 mg tablet Take 2 tablets by mouth once daily for 4 days. Take daily with food. 8 tablet 0 05/01/2024 05/05/2024 Active sucralfate 100 mg/ml oral suspension (6 sources) Aluminum Complex Start: 08-24-20 End: 09-23-20 take 10 mL by mouth three times [...] 14 days. 420 mL 07/29/2024 08/12/2024 Active traZODone hydrochloride 50 mg oral tablet (1 source) Serotonin Reuptake Inhibitor Start: 06-07-2025 take 1 tablet by mouth once daily at bedtime traZODone (DESYREL) 50 mg tablet Indications: Primary insomnia Take 1 tablet by mouth daily at bedtime. 30 tablet 11 06/07/2025 Active triamcinolone acetonide 0.25 mg/ml topical cream (2 sources) Corticosteroid Start: 04-30-2024 End: 05-07-2024 triamcinolone (KENALOG) 0.025 % cream Indications: Itch Apply to affected area two times a day for 7 days. 15 g 0 04/30/2024 05/07/2024 Active Completed/Discontinued Medications Medication Drug Class(es) Dates Sig (Normalized) Sig (Original) acetaminophen 325 mg / HYDROcodone bitartrate 5 mg oral tablet (10 sources) Opioid Agonist Start: 12-06-2024 End: 04-14-2025 Hydrocodone-Acetami nophen 5-325 mg tablet Discontinued 1 {tbl} PO EVERY 6 HOURS NEEDED as needed for pain December 06, 2024 1:00am April 14, 2025 7:59pm Start: 08-04-2020 End: 08-07-2020 Hydrocodone-Acetaminophen 1 TABLET tablet Discontinued 1 {tbl} PO EVERY 6 HOURS NEEDED as needed for Pain 10 3 August 04, 2020 August 06, 2020 12:00am August 07, 2020 1:02am Complex cyst of left ovary Other ovarian cyst, left side Start: 08-04-2020 End: 08-07-2020 take 1 tablet by mouth every six hours as needed Hydrocodone-Acetaminophen Discontinued 1 TABLET PO EVERY 6 HOURS NEEDED 10 3 August 04, 2020 August 07, 2020 1:02am amoxicillin 875 mg / clavulanate 125 mg oral tablet (3 sources) Penicillin-class Antibacterial Start: 02-06-2024 End: 02-16-2024 amoxicillin-clavulanate potassium (AUGMENTIN) 875-125 mg per tablet Take 1 tablet by mouth two times a day for 10 days. FOR 10 DAYS. 20 tablet 0 02/06/2024 02/16/2024 aspirin 81 mg delayed release oral tablet (3 sources) Platelet Aggregation Inhibitor, Nonsteroidal Anti-inflammatory Drug Start: 12-06-2024 End: 04-14-2025 Aspirin (Adult Low Dose Aspirin) 81 mg tablet,delayed release (DR/EC) Discontinued 81 mg PO DAILY December 06, 2024 1:00am April 14, 2025 7:59pm busPIRone hydrochloride 10 mg oral tablet (2 [...] Discontinued cyclobenzaprine hydrochloride 10 mg oral tablet (8 sources) Muscle Relaxant Start: 11-01-2021 End: 08-07-2023 take 1 tablet by mouth three times daily as needed for muscle spasms Cyclobenzaprine 10 mg tablet Discontinued 10 mg PO THREE TIMES A DAY as needed for muscle spasm November 01, 2021 1:00am August 07, 2023 [...] on above: Take 1 capsule by mo [facility] two times a day. escitalopram 10 mg oral tablet (19 sources) Serotonin Reuptake Inhibitor Start: 09-30-2021 End: 08-07-2023 take 1 tablet by mouth once daily Escitalopram Oxalate 10 mg tablet Discontinued 10 mg PO DAILY September 30, 2021 1:00am August 07, 2023 4:12pm Comment on above: Take 1 tablet by laurie once daily. famotidine 20 mg oral tablet (20 sources) Histamine-2 Receptor Antagonist Start: 11-30-2024 End: 04-14-2025 take 1 tablet by mouth twice daily Famotidine 20 mg tablet Discontinued 20 mg PO TWICE A DAY December 06, 2024 1:00am April 14, 2025 7:59pm Start: 11-17-2023 End: 09-23-2024 take 1 tablet by mouth twice daily famotidine (PEPCID) 20 mg tablet Take 1 tablet by mouth two times a day. 60 tablet 1 04/28/2024 09/23/2024 Discontinued Comment on above: [facility] hydrocortisone acetate 25 [...] Comment on above: Take 1 capsule by [facility] daily at bedtime. ibuprofen 600 mg oral tablet (7 sources) Nonsteroidal Anti-inflammatory Drug Start: 11-01-19 End: 08-07-20 take 1 tablet by mouth four times daily as needed for pain Ibuprofen 600 MG tablet Discontinued 600 mg PO 4 TIMES DAILY as needed for Pain Or Fever November 01, 2021 1:00am August 07, 2023 [...] above: Take by mouth. ondansetron 4 mg disintegrating oral tablet (20 sources) Serotonin-3 Receptor Antagonist Start: 5 End: 5 take 1 tablet by mouth every eight hours as needed for nausea Ondansetron 4 mg tablet,disintegratin g Discontinued 4 mg PO EVERY 8 HOURS NEEDED as needed for Nausea 10 0 October 19, 2024 1:00am December 06, 2024 9:48pm Start: 08-07-2023 Ondansetron Hc l Active MG August 07, 2023 12:00am Start: 07-29-2023 End: 03-12-2024 Ondansetron Hcl 4 mg tablet Discontinued 4 mg August 07, 2023 12:00am February 04, 2024 8:40am nausea Comment on above: Take 1 tablet by laurie th every 8 hours as needed for nausea/vomiting. no.167-folic acid-dha 400 mcg- 25 mg chew (20 sources) Start: 3 End: 4 take 1 tablet by mouth once daily [...] 1 tablet by laurie th once daily. sertraline 25 mg oral tablet (20 sources) Serotonin Reuptake Inhibitor Start: 08-07-2023 Sertraline Active MG August 07, 2023 12:00am Start: 04-02-2023 End: 06-07-2025 take 1 tablet by mouth once daily sertraline (ZOLOFT) 25 mg tablet Indications: 35 weeks gestation of (HCC) Take 1 tablet by mouth once daily. 30 tablet 5 11/05/2024 06/07/2025 Discontinued Comment on above: Take 1 tablet [...] and rectum] 09-27-2024 Episodic Headache; including migraine (8 sources) Headache; Translations: [Headache] 09-30-2021 Episodic Intestinal infection (1 source) Infectious colitis; Translations: [Infectious gastroenteritis and colitis, unspecified] 09-27-2024 Episodic Malaise and fatigue (2 sources) Fatigue; Translations: [Other fatigue] 05-13-2023 Episodic Menstrual disorders (1 source) Irregular periods; Translations: [Irregular menstruation, unspecified] Chronic Miscellaneous mental health disorders (2 sources) Primary insomnia; Translations: [Primary insomnia] Onset: 5 06-07-2025 Chronic Mood disorders (6 sources) Recurrent major depressive disorder in partial remission co-occurrent with anxiety; Translations: [Major depressive disorder, recurrent, in partial remission] Chronic Nonmalignant breast conditions (2 sources) Pain of breast; Translations: [Mastodynia] 05-13-2023 Episodic Nutritional deficiencies (1 source) Vitamin D deficiency; Translations: [Vitamin D deficiency, unspecified] 05-13-2023 Chronic Other aftercare (8 sources) Patient encounter status; Translations: [Encounter for [...] Chronic Other nervous system disorders (1 source) Other chronic pain; Translations: [Chronic right-sided thoracic back pain] Onset: 5 Chronic Other nervous system disorders (1 source) Numbness and tingling sensation of skin; Translations: [Anesthesia of skin] Episodic Other nervous system disorders (3 sources) Postoperative pain ; Translations: [Other acute postprocedural pain] 12-14-2024 Episodic Other nutritional; endocrine; and metabolic disorders (3 sources) Body mass index 30+ - obesity 10-27-2024 Chronic Other and delivery including normal (20 sources) Urine test positive; Translations: [Encounter for [...] upper respiratory infection, unspecified] Episodic Ovarian cyst (7 sources) Complex cyst of left ovary; Translations: [Other ovarian cyst, left side] 08-05-2020 Episodic Poisoning by nonmedicinal substances (1 source) Wound finding; Translations: [Toxic effect of venom of bees, accidental (unintentional), initial encounter] 05-01-2024 Episodic Polyhydramnios and other problems of amniotic cavity (3 sources) Spontaneous rupture of membranes 02-12-2024 Episodic Residual codes; unclassified (1 source) Left [...] of ] 01-30-2024 Episodic Residual codes; unclassified (5 sources) H/O: depression; Translations: [Personal history of other complications of , childbirth and the puerperium] 02-03-2024 Episodic Residual codes; unclassified (4 sources) History of hemorrhage; Translations: [Personal history of [...] [Early satiety] 01-24-2025 Episodic Residual codes; unclassified (3 sources) Dependent edema; Translations: [Edema, unspecified] 12-14-2024 Episodic Residual codes; unclassified (2 sources) Stabbing pain; Translations: [Pain, unspecified] 04-27-2025 Episodic Residual codes; unclassified (2 sources) Pain, unspecified; Translations: [Stabbing pain] Onset: Episodic Screening and history of mental health and substance abuse codes (1 source) H/O: anxiety state; Translations: [Personal history of other mental and behavioral disorders] 04-14-2025 Episodic Spondylosis; intervertebral disc disorders; other back problems (3 sources) Prolapsed thoracic intervertebral disc; Translations: [Other intervertebral disc displacement, thoracic region] Onset: 5 04-27-2025 Chronic Sprains and strains (7 sources) Strain of thoracic region; Translations: [Strain of muscle and tendon of unspecified wall of thorax, initial encounter] 11-09-2021 Episodic Unclassified (7 sources) No history of clinical finding in subject; Translations: [No significant past medical history] 08-04-2020 Unclassified (11 sources) [facility] Education - COMMON Onset: 3 07-11-2023 Unclassified (11 sources) Education - [place] Onset: 3 07-11-2023 Unclassified (2 sources) Normal labor; Translations: [Active labor at term] 02-03-2024 Unclassified (2 sources) Spontaneous rupture of membranes; Translations: [Spontaneous rupture of amniotic membranes] 02-03-2024 Unclassified (1 source) OPENED IN ERROR 04-20-2025 Unclassified (1 source) Consult Onset: Viral infection (14 sources) Acute viral disease; Translations: [Viral infection, unspecified] 10-08-2021 Episodic Past or Other Problems Problem Classification Problem Date Documented Date Episodic/Chronic Abdominal hernia (20 sources) Gastroesophageal reflux disease with hiatal hernia; Translations: [Diaphragmatic hernia without obstruction or gangrene] Onset: 08-03-2024 08-03-2024 Episodic Abdominal pain (20 sources) Right upper quadrant pain; Translations: [Indigestion] Onset: 01-22-2023 03-24-2016 Episodic Cancer of cervix (20 sources) Abnormal cytological finding in specimen from female genital organ; Translations: [Atypical squamous cells cannot exclude high grade squamous intraepithelial lesion on cytologic smear of cervix (ASC-H)] Onset: 10-15-2023 10-15-2023 Episodic Cardiac dysrhythmias (3 sources) Palpitations; Translations: [Palpitations] Onset: 06-09-2024 04-28-2024 Episodic Contraceptive and procreative management (20 sources) Sterilization requested; Translations: [Encounter for sterilization] Onset: 11-17-2023 11-17-2023 Episodic Diabetes or abnormal glucose tolerance complicating ; childbirth; or the puerperium (20 sources) Impaired glucose tolerance in ; Translations: [Abnormal glucose complicating ] Onset: 11-18-2023 11-18-2023 Episodic Nausea and vomiting (4 sources) Nausea, vomiting and diarrhea; Translations: [Nausea with vomiting, unspecified] Onset: 11-11-2024 10-27-2024 Episodic Nonspecific chest pain (8 sources) Chest pain; Translations: [Chest pain, unspecified] Onset: 06-09-2024 Episodic Other complications of (20 sources) Rubella non-immune; Translations: [Supervision of other high risk pregnancies, unspecified trimester] Onset: 07-16-2023 07-16-2023 Episodic Other complications of (20 sources) High risk ; Translations: [Supervision of other high risk pregnancies, first trimester] Onset: 07-16-2023 07-16-2023 Episodic Other nervous system disorders (1 source) Other acute postprocedural pain; Translations: [Other acute postprocedural pain] Onset: 12-16-2024 Episodic Other nutritional; endocrine; and metabolic disorders (20 sources) Body mass index 25-29 - overweight; Translations: [Overweight] Onset: 11-22-2014 Resolved: 05-24-2021 05-24-2021 Episodic Otitis media and related conditions (20 sources) Dysfunction of eustachian tube; Translations: [Other specified disorders of Eustachian tube, unspecified ear] Onset: 11-02-2014 11-22-2014 Episodic Residual codes; unclassified (1 source) Early satiety; Translations: [Early satiety] Onset: 01-24-2025 Episodic Spondylosis; intervertebral disc disorders; other back problems (20 sources) Thoracic back pain; Translations: [Pain in thoracic spine] Onset: 11-22-2014 Episodic Results Test Name Value Interpretation Reference Range Facil jeff Barrow 06-07-2025 CNOV Office Visit (INTMWS) ---- AIDEN FRENCH ([id number]) 1990 F Date Time Provider Department 06/07/25 1:00 PM KISHOR HERNANDEZ INTJimWS During your visit today, we recorded the following information about you: Pulse Respiration Blood pressure Weight 84/minute 16/minute 109/58 75.8 kg Last Period 05/16/25 Kishor Hernandez MD 06/07/2025 1:52 PM Signed We discussed your insomnia and energy levels: - You are currently taking Wellbutrin in the morning, which helps with energy during the day but is contributing to significant insomnia. You reported difficulty falling asleep until 12:00-2:00 AM (sometimes as late as 4:00 AM) despite lying down at 9:00 PM. You also feel exhausted and unrested upon waking. - I recommended trying Trazodone at night to help improve your sleep. This prescription has been sent to your pharmacy. Please take it as directed and let me know if it helps. - Continue taking Wellbutrin in the morning as prescribed. If your sleep issues persist or worsen, we can reassess your treatment plan. We discussed your diet and nutrition: - You mentioned that you often skip meals and primarily eat leftovers from your son?s plate, which includes fruits and vegetables but limited protein. - I recommend incorporating more balanced meals into your diet, including protein sources like meat, beans, or tofu, to ensure you are meeting your nutritional needs. We reviewed your recent blood work: - Your results were mostly normal, including your blood sugar levels. However, your platelet count was slightly elevated at 416. This is not concerning at this time, but we will monitor it during future visits. We discussed your poison radha exposure: - You have a small area of poison radha on your arm. Continue applying steroid cream as needed to manage symptoms and prevent worsening. Follow-Up: - Please monitor your sleep and energy levels while taking Trazodone and let me know how you are doing at your next visit or sooner if needed. - If your poison radha worsens or does not improve, please contact the office. Let me know if you have any additional concerns or questions. Kishor Hernandez MD 06/07/2025 5:31 PM Signed Reason for Visit Physical HPI Aiden French is a 35-year-old female, with a history of depression, presenting with insomnia and fatigue. Aiden reports persistent insomnia and fatigue since starting Wellbutrin, which she takes at 0600. She experiences difficulty falling asleep, often lying awake until [id number] despite going to bed at 2100. She feels exhausted upon waking and requires 1-2 hours to overcome morning grogginess. She describes her sleep as half awake and non-restorative, leading to mental exhaustion. She has tried melatonin without improvement. She denies significant snoring, but her boyfriend's snoring occasionally disrupts her sleep. Aiden has a history of depression and notes that Wellbutrin provides energy during the day but exacerbates her insomnia. She has experimented with taking half the dose in the evening, but this did not improve her sleep. She is considering discontinuing Wellbutrin due to its impact on her sleep. She has a busy lifestyle, caring for her children and planning to start a part-time job. Her youngest child has been particularly clingy, making it difficult for her to exercise regularly. She describes her diet as inconsistent, often eating leftovers from her son's plate and lacking sufficient meat intake due to its expense. She has a sweet tooth and enjoys cooking, particularly vegetable stir goldberg on white rice. She denies regular exercise but tries to stay active when possible. She also reports a recent exposure to poison radha, for which she has applied steroid cream. SOCIAL HISTORY[1] Past medical history, appointments, medications, allergies reviewed. Pertinent Lab/Diagnostic Studies are reviewed and discussed today Current Outpatient Medications: buPROPion (WELLBUTRIN) 75 mg tablet traZODone (DESYREL) 50 mg tablet omeprazole (PRILOSEC) 40 mg capsule Docosahexanoic Acid 200 mg cap Health Maintenance Hepatitis B Vaccine(1 of 3 - 19+ 3-dose series) HPV Vaccine(1 - 3-dose SCDM series) Cervical Cancer Screening Influenza Vaccine(1)@ Review Of Systems Constitutional: (+) insomnia, (+) fatigue Ears/Nose/Mouth/Thr oat: (-) snoring Musculoskeletal: (+) neck pain Skin: (+) rash Physical Exam BP 109/58 Pulse 84 Resp 16 Wt 75.8 kg (167 lb 3.2 oz) LMP 05/16/2025 (Exact Date) No BMI 32.65 kg/m? GENERAL: NAD, alert and oriented. SKIN: Unremarkable, no rash or skin lesions. Noted small area of poison radha. HEAD: Normocephalic. EYES: PERRLA, EOMI, conjunctiva clear. EARS: External ears normal, canals clear, TM's normal. NOSE/SINUSES: Nares normal. Septum midline. OROPHARYNX: Lips, mucosa, and tongue normal, (more content not included)... Normal [facility] CBC W Auto Differential pane l (Bld)on 04-27-2025 Basophils (Bld) [#/Vol] 0.07 10*3/uL Normal <0.11 [facility] Comment on above: Order Comment: Speci men Type: BLOOD SPECIMENOrdering Facility: [facility] Address: [address] [place] [address] Performed By: #### 5 7021-8 ####[facility] LABCLIA [id number] [place] [address] [place] Basophils/100 WBC (Bld) 0.8 % Normal C [facility] Comment on above: Order Comment: Speci men Type: BLOOD SPECIMENOrdering Facility: [facility] Address: [address] [place] [address] Performed By: #### 5 7021-8 ####[facility] LABCLIA [id number] [place] [address] [place] Differential cell count method Nom (Bld) Auto Normal [facility] Comment on above: Order Comment: Speci men Type: BLOOD SPECIMENOrdering Facility: [facility] Address: [address] [place] [address] Performed By: #### 5 7021-8 ####[facility] LABCLIA [id number] [place] [id number] [place] Eosinophils (Bld) [#/Vol] 0.28 10*3/uL Normal <0.46 [facility] Comment on above: Order Comment: Speci men Type: BLOOD SPECIMENOrdering Facility: [facility] Address: [address] [place] [address] Performed By: #### 5 7021-8 ####[facility]CLIA [id number] [place] [address] [place] Eosinophils/100 WBC (Bld) 3.2 % Normal [facility] Comment on above: Order Comment: Speci men Type: BLOOD SPECIMENOrdering Facility: [facility] Address: [address] [place] [address] Performed By: #### 5 7021-8 ####[facility]CLIA [id number] [place] [address] [place] Erythrocyte distribution width (RBC) [Ratio] 12.7 % Normal 11.5-15.0 [facility] Comment on above: Order Comment: Speci men Type: BLOOD SPECIMENOrdering Facility: [facility] Address: [address] [place] [address] Performed By: #### 5 7021-8 ####[facility] LABCLIA [id number] [place] [address] [place] Hematocrit (Bld) [Volume fraction] 44.2 % Normal 36.0-46.0 [facility] Comment on above: Order Comment: Speci men Type: BLOOD SPECIMENOrdering Facility: [facility] Address: [address] [place] [address] Performed By: #### 5 7021-8 ####[facility]CLIA [id number] [place] [address] [place] Hemoglobin (Bld) [Mass/Vol] 14.3 g/dL Normal 11.5-15.5 [facility] [facility] Comment on above: Order Comment: Speci men Type: BLOOD SPECIMENOrdering Facility: [facility] Address: [address] [place] [address] Performed By: #### 5 7021-8 ####[facility] LABCLIA [id number] [place] [address] [place] Immature granulocytes (Bld) [#/Vol] 0.03 10*3/uL Normal <0.10 [facility] Comment on above: Order Comment: Speci men Type: BLOOD SPECIMENOrdering Facility: [facility] Address: [address] [place] [address] Performed By: #### 5 7021-8 ####[facility] LABCLIA [id number] [place] [address] [place] Immature granulocytes/100 WBC (Bld) 0.3 % Normal [facility] Comment on above: Order Comment: Speci men Type: BLOOD SPECIMENOrdering Facility: [facility] Address: [address] [place] [address] Performed By: #### 5 7021-8 ####[facility] LABIA [id number] [place] [address] [place] Lymphocytes (Bld) [#/Vol] 2.55 10*3/uL Normal 1.00-4.00 [facility] Comment on above: Order Comment: Speci men Type: BLOOD SPECIMENOrdering Facility: [facility] Address: [address] [place] [address] Performed By: #### 5 7021-8 ####[facility] LABCLIA [id number] [address] [place] Lymphocytes/100 WBC (Bld) 29.0 % Normal [facility] Comment on above: Order Comment: Speci men Type: BLOOD SPECIMENOrdering Facility: [facility] Address: [address] [place] [address] Performed By: #### 5 7021-8 ####[facility] LABCLIA [id number] [place] [id number] [place] MCH (RBC) [Entitic mass] 29.4 pg Normal 26.0-34.0 [facility] Comment on above: Order Comment: Speci men Type: BLOOD SPECIMENOrdering Facility: [facility] Address: [address] [place] [address] Performed By: #### 5 7021-8 ####[facility] LABCLIA [id number] [place] [address] [place] MCHC (RBC) [Mass/Vol] 32.4 g/dL Normal 30.5-36.0 [facility] Comment on above: Order Comment: Speci men Type: BLOOD SPECIMENOrdering Facility: [facility] Address: [address] [place] [address] Performed By: #### 5 7021-8 ####[facility] LABCLIA [id number] [place] [address] [place] MCV (RBC) [Entitic vol] 90.9 fL Normal 80.0-100.0 [facility] Comment on above: Order Comment: Speci men Type: BLOOD SPECIMENOrdering Facility: [facility] Address: [address] [place] [address] Performed By: #### 5 7021-8 ####[facility] LABIA [id number] [place] [address] [place] Monocytes (Bld) [#/Vol] 0.57 10*3/uL Normal <0.87 [facility] Comment on above: Order Comment: Speci men Type: BLOOD SPECIMENOrdering Facility: [facility] Address: [address] [place] [address] Performed By: #### 5 7021-8 ####[facility] LABCLIA [id number] [address] [place] Monocytes/100 WBC (Bld) 6.5 % Normal [facility] Comment on above: Order Comment: Speci men Type: BLOOD SPECIMENOrdering Facility: [facility] Address: [address] [place] [address] Performed By: #### 5 7021-8 ####[facility] LABCLIA [id number] [place] [address] [place] Neutrophils (Bld) [#/Vol] 5.28 10*3/uL Normal 1.45-7.50 [facility] Comment on above: Order Comment: Speci men Type: BLOOD SPECIMENOrdering Facility: [facility] Address: [address] [place] [address] Performed By: #### 5 7021-8 ####[facility] LABCLIA [id number] [place] [address] [place] Neutrophils/100 WBC (Bld) 60.2 % Normal [facility] Comment on above: Order Comment: Speci men Type: BLOOD SPECIMENOrdering Facility: [facility] Address: [address] [place] [address] Performed By: #### 5 7021-8 ####[facility] LABCLIA [id number] [place] [address] [place] Nucleated RBC (Bld) [#/Vol] 10*3/uL Normal <0.01 [facility] Comment on above: Order Comment: Speci men Type: BLOOD SPECIMENOrdering Facility: [facility] Address: [address] [place] [address] Performed By: #### 5 7021-8 ####[facility] LABIA [id number] [place] [address] [place] Nucleated RBC/100 WBC (Bld) [Ratio] 0.0 /100 WBC Normal [facility] Comment on above: Order Comment: Speci men Type: BLOOD SPECIMENOrdering Facility: [facility] Address: [address] [place] [address] Performed By: #### 5 7021-8 ####[facility] LABCLIA [id number] [place] [address] [place] Platelet mean volume (Bld) [Entitic vol] 9.9 fL Normal 9.0-12.7 [facility] Comment on above: Order Comment: Speci men Type: BLOOD SPECIMENOrdering Facility: [facility] Address: [address] [place] [address] Performed By: #### 5 7021-8 ####[facility] LABIA [id number] [place] [id number] [place] Platelets (Bld) [#/Vol] 416 10*3/uL High 150-400 [facility] Comment on above: Order Comment: Speci men Type: BLOOD SPECIMENOrdering Facility: [facility] Address: [address] [place] [address] Performed By: #### 5 7021-8 ####[facility] [id number] [place] [address] [place] RBC (Bld) [#/Vol] 4.86 10*6/uL Normal 3.90-5.20 [facility] Comment on above: Order Comment: Speci men Type: BLOOD SPECIMENOrdering Facility: [facility] Address: [address] [place] [address] Performed By: #### 5 7021-8 ####[facility] [id number] [place] [id number] [place] WBC (Bld) [#/Vol] 8.78 10*3/uL Normal 3.70-11.00 [facility] Comment on above: Order Comment: Speci men Type: BLOOD SPECIMENOrdering Facility: [facility] Address: [address] [place] [address] Performed By: #### 5 7021-8 ####[facility] [id number] [place] [id number] [facility] [place] CNOVon 04-27-2025 CNOV Office Visit (INTMWS) ---- AIDEN [id number]) 1990 F Date Time Provider Department 04/27/25 8:40 AM KISHOR HERNANDEZ INTMWS During your visit today, we recorded the following information about you: Pulse Respiration Blood pressure Weight 64/minute 16/minute 105/72 76.3 kg Kishor Hernandez MD 04/27/2025 9:55 AM Signed We discussed your chronic back pain: - You have been experiencing constant stabbing pain in your mid-back (thoracic region) for three years, which worsens with twisting, lifting, and prolonged weight-bearing. You also reported numbness and tingling in your left arm and fingers, as well as difficulty sleeping due to pain. - You mentioned that a spinal specialist previously identified a herniated disc at T7-T8, which was not initially disclosed to you. - I provided a referral to a command and control specialist at [facility], as requested. Please follow up with them to evaluate your condition further and determine appropriate treatment options. - If your symptoms worsen or you experience new symptoms such as loss of bowel or bladder control, please seek immediate medical attention. We discussed your limitations and lifestyle impact: - You noted that the pain has significantly affected your ability to perform daily activities, including caring for your child, gardening, and other physical hobbies. - You also reported that the pain has limited your ability to use your left hand and arm effectively. Next steps: - Schedule an appointment with the command and control specialist at [facility] using the referral provided. - Continue to avoid activities that exacerbate your pain, such as twisting, heavy lifting, or prolonged weight-bearing. - Consider using supportive measures, such as heat or ice packs, to help manage discomfort as needed. Please let me know if you have any additional questions or concerns. Kishor Hernandez MD 04/27/2025 12:21 PM Signed Reason for Visit Follow up HPI Aiden French is a 34-year-old female presenting with chronic back pain and seeking a referral to a command and control specialist. Aiden reports a 3-year history of constant, severe back pain described as a stabbing sensation, which she attributes to a work-related injury in 2021. She was initially diagnosed with a back strain by an occupational therapist and was advised that it would heal in 3-6 weeks. However, the pain has persisted and worsened over time. She recently discovered through a spinal specialist that she has a herniated disc at T7-T8, which was not disclosed to her at the time of her initial injury. The pain is localized to a small, pinpoint area in her thoracic spine and is exacerbated by twisting to the right, lifting weights, and sleeping on her side. She describes the pain as feeling like a lightning bolt when twisting to the right and experiences numbness and tingling in her arm and fingers when lying on her side. She also reports muscle spasms and a sensation of being punched in the stomach when lifting objects. Aiden has been unable to engage in physical activities such as gardening and exercise due to the pain. She also reports difficulty performing daily tasks such as picking up her baby and brushing her hair. She has been using her right hand predominantly due to the pain in her left side. Aiden is currently not working and is seeking a referral to a command and control specialist who works with the [employer] [employer] ([facility]) to address her back pain and herniated disc. She is also working with a manager software to address her work-related injuries. Social History Tobacco Use Smoking status: Former Current packs/day: 0.50 Average packs/day: 0.5 packs/day for 5.0 years (2.5 ttl pk-yrs) Types: Cigarettes Smokeless tobacco: Never Tobacco comments: vape Vaping Use Vaping status: Former Substance Use Topics Alcohol use: Not Currently Comment: occasionally Drug use: No Past medical history, appointments, medications, allergies reviewed. Pertinent Lab/Diagnostic Studies are reviewed and discussed today Current Outpatient Medications: buPROPion (WELLBUTRIN) 75 mg tablet omeprazole (PRILOSEC) 40 mg capsule sertraline (ZOLOFT) 25 mg tablet Docosahexanoic Acid 200 mg cap Health Maintenance Hepatitis B Vaccine(1 of 3 - 19+ 3-dose series) Cervical Cancer Screening@ Review Of Systems Constitutional: (+) insomnia Musculoskeletal: (+) chronic stabbing thoracic back pain, (+) limited right trunk rotation, (+) thoracic muscle spasms Neurological: (+) upper arm numbness, (+) paresthesia of two fingers, (+) positional numbness and tingling when side lying Psychiatric: (+) anxiety Physical Exam BP 105/72 Pulse 64 Resp 16 Wt 76.3 kg (168 lb 3.2 oz) LMP 04/16/2025 (Exact Date) BMI 32.85 kg/m? GENERAL: NAD, alert and oriented SKIN: Unremarkable, no rash or skin (more content not included)... Normal [facility] Comprehensive metabolic 2000 panelon 04-27-2025 Albumin [Mass/Vol] 4.6 g/dL Normal 3.9-4.9 [facility] Comment on above: Order Comment: Speci men Type: BLOOD SPECIMENOrdering Facility: [facility] Address: [address] [place] [address] Performed By: #### 2 4323-8 ####[facility] LABCLIA [id number] [place] [address] [place] ALP [Catalytic activity/Vol] 81 U/L Normal 34-123 [facility] Comment on above: Order Comment: Speci men Type: BLOOD SPECIMENOrdering Facility: [facility] Address: [address] [place] [address] Performed By: #### 2 4323-8 ####[facility] LABCLIA [id number] [place] [id number] [place] ALT [Catalytic activity/Vol] 10 U/L Normal 7-38 [facility] Comment on above: Order Comment: Speci men Type: BLOOD SPECIMENOrdering Facility: [facility] Address: [address] [place] [address] Performed By: #### 2 4323-8 ####[facility] LABCLIA [id number] [place] [id number] [place] Anion gap [Moles/Vol] 9 mmol/L Normal 8-15 [facility] Comment on above: Order Comment: Speci men Type: BLOOD SPECIMENOrdering Facility: [facility] Address: [address] [place] [address] Performed By: #### 2 4323-8 ####[facility] LABCLIA [id number] [place] [id number] [place] AST [Catalytic activity/Vol] 18 U/L Normal 13-35 [facility] Comment on above: Order Comment: Speci men Type: BLOOD SPECIMENOrdering Facility: [facility] Address: [address] [place] [address] Performed By: #### 2 4323-8 ####[facility] LABCLIA [id number] [address] [address] [place] Bilirubin [Mass/Vol] 0.6 mg/dL Normal 0.2-1.3 [facility] Comment on above: Order Comment: Speci men Type: BLOOD SPECIMENOrdering Facility: [facility] Address: [address] [place] [address] Performed By: #### 2 4323-8 ####[facility] LABCLIA [id number] [place] [address] [place] Calcium [Mass/Vol] 9.8 mg/dL Normal 8.5-10.2 [facility] Comment on above: Order Comment: Speci men Type: BLOOD SPECIMENOrdering Facility: [facility] Address: [address] [place] [address] Performed By: #### 2 4323-8 ####[facility] LABCLIA [id number] [place] [address] [place] Chloride [Moles/Vol] 105 mmol/L Normal 98-107 [facility] Comment on above: Order Comment: Speci men Type: BLOOD SPECIMENOrdering Facility: [facility] Address: [address] [place] [address] Performed By: #### 2 4323-8 ####[facility] LABCLIA [id number] [place] [id number] [place] CO2 [Moles/Vol] 23 mmol/L Normal 22-30 [facility] Comment on above: Order Comment: Speci men Type: BLOOD SPECIMENOrdering Facility: [facility] Address: [address] [place] [address] Performed By: #### 2 4323-8 ####[facility] LABCLIA [id number] [facility] [id number] [place] [address] [place] Creatinine [Mass/Vol] 0.78 mg/dL Normal 0.58-0.96 [facility] Comment on above: Order Comment: Speci men Type: BLOOD SPECIMENOrdering Facility: [facility] Address: [address] [place] [address] Performed By: #### 2 4323-8 ####[facility] LABIA [id number] [address] [address] [place] eGFRcr SerPlBld CKD-EPI 2020 104 mL/min/1.73m??? Normal >=60 [facility] Comment on above: Order Comment: Speci men Type: BLOOD SPECIMENOrdering Facility: [facility] Address: [address] [place] [address] Result Comment: Maureen mated Glomerular Filtration Rate [...] accurately reflect actual GFR. Performed By: #### 2 4323-8 ####[facility] LABIA [id number] [address] [address] [place] Glucose [Mass/Vol] 89 mg/dL Normal 74-99 [facility] Comment on above: Order Comment: Speci men Type: BLOOD SPECIMENOrdering Facility: [facility] Address: [address] [place] [address] Result Comment: The [place] Diabetes Association (ADA) provides guidance for cutoff [...] Standards of Medical Care in Diabetes 2016, [place] [employer]. Diabetes Care. 2016.39(Suppl 1). Performed By: #### 2 4323-8 ####[facility] LABCLIA [id number] [address] [address] [place] Potassium [Moles/Vol] 4.3 mmol/L Normal 3.7-5.1 [facility] Comment on above: Order Comment: Speci men Type: BLOOD SPECIMENOrdering Facility: [facility] Address: [address] [place] [address] Performed By: #### 2 4323-8 ####[facility] LABCLIA [id number] [place] [id number] [place] Protein [Mass/Vol] 7.5 g/dL Normal 6.3-8.0 [facility] Comment on above: Order Comment: Speci men Type: BLOOD SPECIMENOrdering Facility: [facility] Address: [address] [place] [address] Performed By: #### 2 4323-8 ####[facility] LABIA [id number] [address] [address] [place] Sodium [Moles/Vol] 137 mmol/L Normal 136-144 [facility] Comment on above: Order Comment: Speci men Type: BLOOD SPECIMENOrdering Facility: [facility] Address: [address] [place] [address] Performed By: #### 2 4323-8 ####[facility] LABCLIA [id number] [address] [address] [place] Urea nitrogen [Mass/Vol] 11 mg/dL Normal 7-21 [facility] Comment on above: Order Comment: Speci men Type: BLOOD SPECIMENOrdering Facility: [facility] Address: [address] [place] [address] Performed By: #### 2 4323-8 ####[facility] CHRISTOPHER [id number] [place] [address] [place] OF [facility] CNOVon 04-20-2025 CNOV Office Visit (OBGYWM) ---- AIDEN FRENCH ([id number]) 1990 F Date Time Provider Department 04/20/25 3:20 PM MANUELA LUZ OBGYWM During your visit today, we recorded the following information about you: Blood pressure Weight Last Period 102/64 76.2 kg 04/16/25 Ricky Porter MA 04/20/2025 4:44 PM Signed Patient left without being seen Allergies As of Date: 04/20/2025 (No Known Allergies) Date Reviewed: 04/20/2025 Reviewed by: Ricky Porter MA - Fully Assessed Reason for Visit: Consult [173] Primary Visit Diagnosis:OPENED IN ERROR Prescriptions as of 04/20/2025 - buPROPion (WELLBUTRIN) 75 mg tablet Take 1 tablet by mouth two times a day. - omeprazole (PRILOSEC) 40 mg capsule Take 1 capsule by mouth two times a day. - sertraline (ZOLOFT) 25 mg tablet Take 1 tablet by mouth once daily. - Docosahexanoic Acid 200 mg cap Take by mouth. Problem List As Of Date 04/20/2025 Noted Resolved Rhinitis [J31.0] 11/02/2014 Eustachian tube [...] [O24.41*11/19/2023 Hiatal hernia with gastroesophageal reflux dise*08/03/2024 Encounter Status:Closed by MANUELA WADDELL on 04/20/25 Normal [facility] Abdomen/Pelvis W IV Cont ONL Yon 04-14-2025 Abdomen/Pelvis W IV Cont ONLY [facility] [address] [place] [id number] Abdomen/Pelvis W IV Cont ONLY MR#: [id number] Acct: [id number] Name: AIDEN FRENCH Rep #: [id number] : 1990 F 34 From: Chilango Bocanegra MD PCP: Dr. Kishor Hernandez MD Status: [facility] ER Study: Abdomen/Pelvis W IV Cont ONLY Date of Exam: Exam# [id number] Ordering Dr: Austen Love DO PROCEDURE: ABDOMEN/PELVIS W IV CONT ONLY 04/14/2025 REASON FOR EXAM: LLQ PAIN TECHNIQUE: ABDOMEN/PELVIS W IV CONT ONLY Coronal and Sagittal reconstruction series were provided. CONTRAST: Isovue-300 VOLUME: 98 mL One or more dose reduction techniques were used (e.g., Automated exposure control, adjustment of the mA and/or kV according to patient size, use of iterative reconstruction technique. RADIATION DOSE SUMMARY: CTDlvol: 26.3 mGy DLP: 857.72 mGycm COMPARISON: Abdominal CT 04/04/2021 FINDINGS: Lung bases: Clear. Liver: Within normal limits. Gallbladder: Unremarkable, no biliary ductal dilatation. Spleen: Normal size and morphology. Pancreas: Unremarkable. Adrenals: Unremarkable. Kidneys: Normal, symmetric enhancement. No urolithiasis or hydronephrosis. Bladder: Underdistended, grossly unremarkable. Reproductive Organs: Uterus and adnexae appear within normal limits. Small crenulated peripherally enhancing right ovarian cyst compatible with a physiologic involuting corpus luteum. Bowel: Unremarkable. No obstruction or active inflammatory process. Normal appendix. Lymph nodes: No suspicious lymph node enlargement. Vasculature: The abdominal aorta and IVC are normal. Peritoneum / Retroperitoneum: No ascites or free air. Bones: No significant abnormality. CT/Abdomen/Pelvis W IV Cont ONLY IMPRESSION: No acute or active inflammatory intra-abdominal pathology. Reading Location: [facility] CC: Dr. Kishor Hernandez MD; Dr. Austen Love DO Junior Accountant Bookkeeper: Signed Normal [facility] Absolute lymphocyte countOrd ered By: uAsten Love on 04-14-2025 Lymphocytes Auto (Unsp spec) [#/Vol] 2.85 10*3/uL 0.83-4.51 [facility] Absolute neutrophil countOrd ered By: Austen Love on 04-14-2025 Neutrophils (Bld) [#/Vol] 7.8 10*3/uL High 2.0-7.7 [facility] Amorphous sediment detection in urine sediment by light microscopyOrdered By: Austen Love on 04-14-2025 Amorphous sediment LM Ql (Urine sed) 2+ PHOS [facility] Comment on above: Microscopic field is filled. Other elements may be obscured. Anion gap in Serum or Plasma Ordered By: Austen Love on 04-14-2025 Anion gap [Moles/Vol] 12 mmol/L 5-15 [facility] Automated lymphocyte count a s percentage of total leukocytesOrdered By: Austen Love on 04-14-2025 Lymphocytes/100 WBC Auto (Unsp spec) 24.4 % 19-41 [facility] BUN/creatinine ratioOrdered By: Austen Love on 04-14-2025 Urea nitrogen/Creatinine [Mass ratio] 13.5 mg/mg 10-20 [facility] Basophil percentageOrdered B y: Austen Love on 04-14-2025 Basophils/100 WBC (Bld) 0.7 % 0-1 [facility] Bilirubin Test strip Ql (U)O rdered By: Austen Love on 04-14-2025 Bilirubin Ql (U) Negative Negative [facility] Bilirubin, totalOrdered By: Austen Love on 04-14-2025 Bilirubin [Mass/Vol] 0.61 mg/dL 0.00-1.30 [facility] CBC W/Diff, Automatedon 04-05 0-2024 Absolute Lymph 2.85 X10 3/uL Normal 0.83-4.51 [facility] Comment on above: Performed By: #### L 500.4050, L100.0100, L700.6800, L501.2450 #### [facility] [address] [place], [address] Absolute Neut 7.8 X10 3/uL High 2.0-7.7 [facility] Comment on above: Performed By: #### L 500.4050, L100.0100, L700.6800, L501.2450 #### [facility] [address] [place], [address] Basophils/100 WBC (Bld) 0.7 % Normal 0-1 [facility] Comment on above: Performed By: #### L 500.4050, L100.0100, L700.6800, L501.2450 #### [facility] [address] [place], [address] Eosinophils/100 WBC (Bld) 1.8 % Normal 0-5 [facility] Comment on above: Performed By: #### L 500.4050, L100.0100, L700.6800, L501.2450 #### [facility] [address] [place], [address] Erythrocyte distribution width (RBC) [Ratio] 12.6 % Normal 11.6-14.6 [facility] Comment on above: Performed By: #### L 500.4050, L100.0100, L700.6800, L501.2450 #### [facility] [address] [place], [address] Hematocrit (Bld) [Volume fraction] 38.9 % Normal 37-47 [facility] Comment on above: Performed By: #### L 500.4050, L100.0100, L700.6800, L501.2450 #### [facility] [address] [place], [address] Hemoglobin (Bld) [Mass/Vol] 13.0 g/dL Normal 12.0-15.0 [facility] Comment on above: Performed By: #### L 500.4050, L100.0100, L700.6800, L501.2450 #### [facility] [facility] [address] [place], [address] IG% 0.300 Normal 0.0-0.9 [facility] Comment on above: Result Comment: IG% - Immature Granulocytes (promyelocytes, myelocytes and metamyelocytes) > 1% indicates that a LEFT SHIFT is Present. Performed By: #### L 500.4050, L100.0100, L700.6800, L501.2450 #### [facility] [address] [place], [address] Lymphocytes/100 WBC (Bld) 24.4 % Normal 19-41 [facility] Comment on above: Performed By: #### L 500.4050, L100.0100, L700.6800, L501.2450 #### [facility] [address] [place], [address] MCH (RBC) [Entitic mass] 29.8 pg Normal 27.0-32.0 [facility] Comment on above: Performed By: #### L 500.4050, L100.0100, L700.6800, L501.2450 #### [facility] [address] [place], [address] MCHC (RBC) [Mass/Vol] 33.4 g/dL Normal 32-36 [facility] Comment on above: Performed By: #### L 500.4050, L100.0100, L700.6800, L501.2450 #### [facility] [address] [place], [address] MCV (RBC) [Entitic vol] 89.2 fL Normal 81-99 [facility] Comment on above: Performed By: #### L 500.4050, L100.0100, L700.6800, L501.2450 #### [facility] [address] [place], [address] Monocytes/100 WBC (Bld) 6.0 % Normal 0-10 [facility] Comment on above: Performed By: #### L 500.4050, L100.0100, L700.6800, L501.2450 #### [facility] [address] [place], [address] Neutrophils/100 WBC (Bld) 66.8 % Normal 47-70 [facility] Comment on above: Performed By: #### L 500.4050, L100.0100, L700.6800, L501.2450 #### [facility] [address] [place], [address] Nucleated RBC (Bld) [#/Vol] 0 10*3/uL Normal 0-5 [facility] Comment on above: Performed By: #### L 500.4050, L100.0100, L700.6800, L501.2450 #### [facility] [address] [place], [address] Platelet mean volume (Bld) [Entitic vol] 9.6 fL Normal 6.2-12.0 [facility] Comment on above: Performed By: #### L 500.4050, L100.0100, L700.6800, L501.2450 #### [facility] [address] [place], [address] Platelets (Bld) [#/Vol] 345 10*3/uL Normal 150-450 [facility] Comment on above: Performed By: #### L 500.4050, L100.0100, L700.6800, L501.2450 #### [facility] [address] [place], [address] RBC (Bld) [#/Vol] 4.36 10*6/uL Normal 4.2-5.4 [facility] Comment on above: Performed By: #### L 500.4050, L100.0100, L700.6800, L501.2450 #### [facility] [address] [place], [address] RDW SD 41.0 fl Normal 35.1-43.9 [facility] Comment on above: Performed By: #### L 500.4050, L100.0100, L700.6800, L501.2450 #### [facility] [address] [place], [address] WBC (Bld) [#/Vol] 11.7 10*3/uL High 4.4-11.0 [facility] Comment on above: Performed By: #### L 500.4050, L100.0100, L700.6800, L501.2450 #### [facility] [address] [place], [address] Carbon dioxide, total [Moles /volume] in Central venous bloodOrdered By: Austen Love on 04-14-2025 CO2 [Moles/Vol] 21.4 mmol/L 21.0-32.0 [facility] Chloride assayOrdered By: Abad Love on 04-14-2025 Chloride [Moles/Vol] 107 mmol/L 98-108 [facility] Comprehensive Metabolic Prof ilon 04-14-2025 Albumin [Mass/Vol] 4.3 g/dL Normal 3.5-5.0 [facility] Comment on above: Performed By: #### L 500.4050, L100.0100, L700.6800, L501.2450 #### [facility] [address] [place], [address] Albumin/Globulin [Mass ratio] 1.5 {ratio} Normal 0.9-2.4 [facility] Comment on above: Performed By: #### L 500.4050, L100.0100, L700.6800, L501.2450 #### [facility] [address] [place], [address] ALK PHOS 80 U/L Normal 35-104 [facility] Comment on above: Performed By: #### L 500.4050, L100.0100, L700.6800, L501.2450 #### [facility] [address] [place], [address] ALT [Catalytic activity/Vol] 24 U/L Normal <=34 [facility] Comment on above: Performed By: #### L 500.4050, L100.0100, L700.6800, L501.2450 #### [facility] [address] [place], [address] AST [Catalytic activity/Vol] 18 U/L Normal <=31 [facility] Comment on above: Performed By: #### L 500.4050, L100.0100, L700.6800, L501.2450 #### [facility] [address] [place], [address] Bilirubin [Mass/Vol] 0.61 mg/dL Normal 0.00-1.30 [facility] Comment on above: Performed By: #### L 500.4050, L100.0100, L700.6800, L501.2450 #### [facility] [address] [place], [address] BUN/CRE 13.5 RATIO Normal 10-20 [facility] Comment on above: Performed By: #### L 500.4050, L100.0100, L700.6800, L501.2450 #### [facility] [address] [place], [address] Calcium [Mass/Vol] 9.3 mg/dL Normal 7.6-11.0 [facility] Comment on above: Performed By: #### L 500.4050, L100.0100, L700.6800, L501.2450 #### [facility] [address] [place], [address] Chloride [Moles/Vol] 107 mmol/L Normal 98-108 [facility] Comment on above: Performed By: #### L 500.4050, L100.0100, L700.6800, L501.2450 #### [facility] [address] [place], [address] CO2 [Moles/Vol] 21.4 mmol/L Normal 21.0-32.0 [facility] Comment on above: Performed By: #### L 500.4050, L100.0100, L700.6800, L501.2450 #### [facility] [address] [place], [address] Creatinine [Mass/Vol] 0.88 mg/dL Normal 0.70-1.20 [facility] Comment on above: Performed By: #### L 500.4050, L100.0100, L700.6800, L501.2450 #### [facility] [address] [place], [address] ECRCL 84.53 ml/min Normal 50-250 [facility] Comment on above: Performed By: #### L 500.4050, L100.0100, L700.6800, L501.2450 #### [facility] [address] [place], [address] GAP 12 Normal 5-15 [facility] Comment on above: Performed By: #### L 500.4050, L100.0100, L700.6800, L501.2450 #### [facility] [address] [place], [address] GFR/1.73 sq M.predicted among non-blacks MDRD (S/P/Bld) [Vol rate/Area] 90 mL/min/{1.73_m2} Normal >60 [facility] Comment on above: Result Comment: mL/m in/1.73m2 CKD-EPI Creatinine Equation (2020) Performed By: #### L 500.4050, L100.0100, L700.6800, L501.2450 #### [facility] [address] [place], [address] Globulin (S) [Mass/Vol] 2.9 g/dL Normal 2.2-4.2 [facility] Comment on above: Performed By: #### L 500.4050, L100.0100, L700.6800, L501.2450 #### [facility] [address] [place], [address] Glucose [Mass/Vol] 93 mg/dL Normal 70-99 [facility] Comment on above: Performed By: #### L 500.4050, L100.0100, L700.6800, L501.2450 #### [facility] [address] [place], [address] Potassium [Moles/Vol] 3.6 mmol/L Normal 3.3-5.1 [facility] Comment on above: Performed By: #### L 500.4050, L100.0100, L700.6800, L501.2450 #### [facility] [address] [place], [address] Sodium [Moles/Vol] 140 mmol/L Normal 133-145 [facility] Comment on above: Performed By: #### L 500.4050, L100.0100, L700.6800, L501.2450 #### [facility] [address] [place], [address] T PROT 7.2 g/dL Normal 5.9-8.4 [facility] Comment on above: Performed By: #### L 500.4050, L100.0100, L700.6800, L501.2450 #### [facility] [address] [place], [address] Urea nitrogen [Mass/Vol] 12 mg/dL Normal 4-19 [facility] Comment on above: Performed By: #### L 500.4050, L100.0100, L700.6800, L501.2450 #### [facility] [address] [place], [address] Emergency Department Summary on 04-14-2025 Emergency Department Summary [facility] Medical Records Department [address] [place] [address] Emergency Department Summary 04/14/25 MR#: [id number] Acct: [id number] Name: AIDEN FRENCH Rep #: [id number] : 1990 34 From: Austen Love DO PCP: Dr. Kishor Hernandez MD Status:REG ER Location: ED HPI History of Present Illness Chief Complaint: Abd Pain Narrative Narrative: Patient is a 34-year-old female with a past medical history of anxiety, depression, gestational diabetes who presented to the emergency department chief complaint of abdominal pain. Patient states that she has had abdominal pain off and on for the last several days and states that she feels like it is moving around and becoming worse. States that usually after she eats about an hour later her pain worsens. Patient states that she is nauseous but denies vomiting. Patient denies any previous abdominal surgeries. Patient denies any sick contacts [facility] Medical History Care and examination of lactating mother Vaginal delivery History of depression History of hemorrhage GDM, class A1 SROM (spontaneous rupture of membranes) Active labor at term Infertility hemorrhage depression Gestational diabetes Anxiety Depression Ovarian cyst Home Medications ???Medication ???Instructions ???Recorded ???Last Taken ???Type bupropion HCl 75 mg tablet 75 mg PO DAILY 03/24/25 Unknown Hi story omeprazole 40 mg capsule,delayed 40 mg PO BID 03/24/25 Unknown Hist ory release Allergy/AdvReac Type Severity Reaction Status Date / Time No Known Allergies Allergy Verified 04/14/25 17:41 Surgical History History of ankle surgery Social History household members: family housing: house Smoking Status: Current every day smoker tobacco type: e-cigarettes substance use type: does not use ROS ROS ED ROS Narrative Constitutional: Denies any fevers, chills, headaches, lightness, dizziness Eyes: Denies change in vision double vision blurry vision Cardiovascular: Denies chest pain Respiratory: Denies shortness of breath Abdomen: Of abdominal pain as noted above as well as nausea denies vomiting : Denies any painful urination, hematuria, polyuria Neurological: Denies any numbness, wheeze, tingling Musculoskeletal: Denies back pain Skin: Any rashes or lesions EXAM Physical Exam Narrative Exam Narrative: General: Patient lying in bed rest comfortably did not appear to be acute distress Head: Atraumatic, normocephalic Eyes: PERRL bilaterally, EOMI bilateral, no conjunctival injection noted Neck: Soft, supple, trachea midline Cardiovascular: Patient tachycardic with a regular rhythm Respiratory: Clear to auscultation bilaterally Abdomen: Soft, nondistended, tender to palpation left lower quadrant no rebound or guarding on exam Extremities: +5/5 strength noted in the bilateral upper and lower extremities Neurological: Patient following commands knew that she was at [facility] year is 2024 Skin: Warm, dry, intact no rashes or lesions noted Const Vital Signs: 04/14/25 17:38 04/14/25 19:38 Temperature 96.5 F L Temperature Source Oral Pulse Rate 102 H 84 Respiratory Rate 16 18 Blood Pressure 144/91 H 133/80 H Blood Pressure Mean 108 97 Pulse Ox 99 98 Oxygen Delivery Method Room Air Room Air MDM MDM MDM Narrative Medical decision making narrative: Patient is a 34-year-old female who presents to the emergency department the chief complaint of abdominal pain. On the differential diagnosis includes but not limited to diverticulitis, abscess, bowel obstruction, pancreatitis, cholecystitis. Once workup is obtained reviewed she will be reevaluated. Patient be given IV fluids morphine Zofran. Patient CBC reviewed and showed a white count of 11,000, hemoglobin was 13, platelet count was noted to be normal at 345. Patient sodium normal at 140, potassium normal 3.6, creatinine normal at 0.88. Patient's AST and ALT were 18 and 24 respectively. Patient lipase was 13, is negative. Patient urinalysis reviewed and showed no evidence of infection she does not have any urinary symptoms. Patient's CT abdomen pelvis with IV contrast reviewed showed no acute or active inflammatory intra-abdominal pathology. On reevaluation patient she is feeling better she would like to go home at this point time. Patient will be given prescriptions for Bentyl and Zofran. She was advised to follow-up with her doctor in outpatient setting return with worsening symptoms or concerns. She is agreeable spinal course concerns answered she was discharged home in stable condition (more content not included)... Normal [facility] Eosinophil percentageOrdered By: Austen Love on 04-14-2025 Eosinophils/100 WBC (Bld) 1.8 % 0-5 [facility] Erythrocyte distribution wid th ratioOrdered By: Austen Love on 04-14-2025 Erythrocyte distribution width (RBC) [Ratio] 12.6 % 11.6-14.6 [facility] Erythrocyte distribution wid th standard deviationOrdered By: Austen Love on 04-14-2025 Erythrocyte distribution width (RBC) [Ratio] 41.0 fl 35.1-43.9 [facility] Glomerular filtration rate ( GFR) estimation/1.73 sq m using serum, plasma, or whole bOrdered By: Austen Love on 04-14-2025 GFR/1.73 sq M.predicted among non-blacks MDRD (S/P/Bld) [Vol rate/Area] 90 mL/min/{1.73_m2} >60 [facility] Comment on above: mL/min/1.73m2 CKD-EP I Creatinine Equation (2020) Hematocrit Auto (Bld) [Volum e fraction]Ordered By: Austen Love on 04-14-2025 Hematocrit (Bld) [Volume fraction] 38.9 % 37-47 [facility] Hemoglobin measurementOrdere d By: Austen Love on 04-14-2025 Hemoglobin (Bld) [Mass/Vol] 13.0 g/dL 12.0-15.0 [facility] Immature granulocytes/100 WB C Auto (Bld)Ordered By: Austen Love on 04-14-2025 Immature granulocytes/100 WBC (Bld) 0.300 % 0.0-0.9 [facility] Comment on above: IG% - Immature Granu locytes (promyelocytes, myelocytes and metamyelocytes) > 1% indicates that a LEFT SHIFT is Present. Ketones Test strip Ql (U)Ord ered By: Austen Love on 04-14-2025 Ketones Ql (U) Negative Negative [facility] - Chemistry and C hemistry - challengeOrdered By: Austen Love on 04-14-2025 AST [Catalytic activity/Vol] 18 U/L <32 [facility] Lipaseon 04-14-2025 Lipase [Catalytic activity/Vol] 13 U/L Normal 13-75 [facility] Comment on above: Result Comment: Jef se note: LIPASE revised reference range effective 23. New Lipase methodology. Expected to produce lower values than the previous assay method. NEW Reference Range: 13 - 75 U/L Performed By: #### L 500.4050, L100.0100, L700.6800, L501.2450 #### [facility] [address] [place], [address] Lipase measurementOrdered By : Austen Love on 04-14-2025 Lipase [Catalytic activity/Vol] 13 U/L 13-75 [facility] Comment on above: Please note:LIPASE r evised reference range effective 23. New Lipase methodology. Expected to produce lower values than the previous assay method. NEW Reference Range: 13 - 75 U/L MCV (mean corpuscular volume ) determinationOrdered By: Austen Love on 04-14-2025 MCV (RBC) [Entitic vol] 89.2 fL 81-99 [facility] Mean corpuscular hemoglobin (MCH) determinationOrdered By: Austen Love on 04-14-2025 MCH (RBC) [Entitic mass] 29.8 pg 27.0-32.0 [facility] Mean corpuscular hemoglobin concentration (MCHC) determinationOrdered By: Austen Love on 04-14-2025 MCHC (RBC) [Mass/Vol] 33.4 g/dL 32-36 [facility] Mean platelet volume determi nationOrdered By: Austen Love on 04-14-2025 Platelet mean volume (Bld) [Entitic vol] 9.6 fL 6.2-12.0 [facility] Microscopic analysis of urin e for red blood cells (RBC)Ordered By: Austen Love on 04-14-2025 Microscopic analysis of urine for red blood cells (RBC) 0-5 SEEN /hpf 0-5 [facility] Monocyte percentageOrdered B y: Austen Love on 04-14-2025 Monocytes/100 WBC (Bld) 6.0 % 0-10 [facility] Mucus LM Ql (Urine sed)Order ed By: Austen Love on 04-14-2025 Mucus Ql (Urine sed) 0 SEEN /hpf [facility] Neutrophil percentageOrdered By: Austen Love on 04-14-2025 Neutrophils/100 WBC (Bld) 66.8 % 47-70 [facility] Nitrite Test strip Ql (U)Ord ered By: Austen Love on 04-14-2025 Nitrite Ql (U) Negative Negative [facility] Nucleated red blood cell per centageOrdered By: Austen Love on 04-14-2025 Nucleated RBC/100 WBC (Bld) [Ratio] 0 % 0-5 [facility] Platelet countOrdered By: Abad Love on 04-14-2025 Platelets (Bld) [#/Vol] 345 10*3/uL 150-450 [facility] Potassium measurement (mass/ volume)Ordered By: Austen Love on 04-14-2025 Potassium (Unsp spec) [Mass/Vol] 3.6 mmol/L 3.3-5.1 [facility] ,Serum,hCG Quali.on 04-14-2025 HCG, SERUM QUAL Negative Normal [facility] Comment on above: Performed By: #### L 500.4050, L100.0100, L700.6800, L501.2450 #### [facility], [address] Protein Test strip Ql (U)Ord ered By: Austen Love on 04-14-2025 Protein Ql (U) 15 mg/dl High Negative [facility] RBC Auto (Bld) [#/Vol]Ordere d By: Austen Love on 04-14-2025 RBC (Bld) [#/Vol] 4.36 10*6/uL 4.2-5.4 [facility] Serum beta-hCG test, qualita tiveOrdered By: Austen Love on 04-14-2025 Beta HCG ( test) Ql Negative [facility] Serum creatinine measurement (mass/volume)Ordered By: Austen Love on 04-14-2025 Creatinine [Mass/Vol] 0.88 mg/dL 0.70-1.20 [facility] Serum globulin measurementOr dered By: Austen Love on 04-14-2025 Globulin (S) [Mass/Vol] 2.9 g/dL 2.2-4.2 [facility] Serum glucose measurement (m ass/volume)Ordered By: Austen Love on 04-14-2025 Glucose [Mass/Vol] 93 mg/dL 70-99 [facility] Serum or plasma alanine frye otransferase (ALT) measurementOrdered By: Austen Love on 04-14-2025 ALT [Catalytic activity/Vol] 24 U/L <35 [facility] Serum or plasma albumin talya urement (mass/volume)Ordered By: Austen Love on 04-14-2025 Albumin [Mass/Vol] 4.3 g/dL 3.5-5.0 [facility] Serum or plasma albumin/glob ulin mass ratioOrdered By: Austen Love on 04-14-2025 Albumin/Globulin [Mass ratio] 1.5 {ratio} 0.9-2.4 [facility] Serum or plasma alkaline dudley sphatase measurementOrdered By: Austen Love on 04-14-2025 ALP [Catalytic activity/Vol] 80 U/L 35-104 [facility] Serum or plasma calcium talya urement (mass/volume)Ordered By: Austen Love on 04-14-2025 Calcium [Mass/Vol] 9.3 mg/dL 7.6-11.0 [facility] Serum or plasma urea nitroge n measurement (mass/volume)Ordered By: Austen Love on 04-14-2025 Urea nitrogen [Mass/Vol] 12 mg/dL 4-19 [facility] Sodium levelOrdered By: Flora Love on 04-14-2025 Sodium [Moles/Vol] 140 mmol/L 133-145 [facility] Squamous epithelial cells de tection in urine sediment by light microscopyOrdered By: Austen Love on 04-14-2025 Epithelial cells.squamous LM Ql (Urine sed) 0-5 SEEN /hpf 02-12 [facility] Total proteinOrdered By: Sona Love on 04-14-2025 Protein [Mass/Vol] 7.2 g/dL 5.9-8.4 [facility] Urinalysis, Completeon 04-14 AMORPHOUS 2+ PHOS Normal [facility] Comment on above: Order Comment: CLEAN CATCH Result Comment: Micr oscopic field is filled. Other elements may be obscured. Performed By: #### L 922.9870, L500.4050, L100.0100 #### [facility] [address] [place], [address] RBC 0-5 SEEN Normal 0-5 [facility] Comment on above: Order Comment: CLEAN CATCH Performed By: #### L 501.2450, L500.4050, L100.0100 #### [facility] [address] [place], [address] WBC 0-5 SEEN Normal 0-5 [facility] Comment on above: Order Comment: CLEAN CATCH Performed By: #### L 501.2450, L500.4050, L100.0100 #### [facility] [address] [place], [address] BACTERIA 1+ /hpf Normal None Seen [facility] Comment on above: Order Comment: CLEAN CATCH Performed By: #### L 501.2450, L500.4050, L100.0100 #### [facility] [address] [place], [address] EPI,SQUAMOUS 0-5 SEEN Normal 5-10 [facility] Comment on above: Order Comment: CLEAN CATCH Performed By: #### L 501.2450, L500.4050, L100.0100 #### [facility] [address] [place], [address] Mucus Ql (Urine sed) 0 SEEN Normal [facility] Comment on above: Order Comment: CLEAN CATCH Performed By: #### L 501.2450, L500.4050, L100.0100 #### [facility] [address] [place], [address] Urine clarityOrdered By: Sona Love on 04-14-2025 Clarity (U) Cloudy Clear [facility] Urine color determinationOrd ered By: Austen Love on 04-14-2025 Color (U) Yellow Yellow [facility] Urine glucose detectionOrder ed By: Austen Love on 04-14-2025 Glucose Ql (U) Normal mg/dl Normal [facility] Urine leukocyte esterase det ection by dipstickOrdered By: Austen Love on 04-14-2025 Leukocyte esterase Test strip Ql (U) 25 /ul High Negative [facility] Urine pHOrdered By: Austen morelos on 04-14-2025 pH (U) 7.0 [pH] 5.0 - 8.0 [facility] Urine sediment bacteria coun t by microscopy (number/high power field)Ordered By: Austen Love on 04-14-2025 Bacteria LM.HPF (Urine sed) [#/Area] 1 /[HPF] None Seen [facility] Urine specific gravity measu rementOrdered By: Austen Love on 04-14-2025 Specific gravity (U) [Rel density] 1.015 1.002-1.030 [facility] Urine urobilinogen measureme ntOrdered By: Austen Love on 04-14-2025 Urobilinogen Ql (U) 1 mg/dl High Normal [facility] White blood cell (WBC) count Ordered By: Austen Love on 04-14-2025 WBC (Bld) [#/Vol] 11.7 10*3/uL High 4.4-11.0 [facility] White blood cell countOrdere d By: Austen Love on 04-14-2025 White blood cell count 0-5 SEEN /hpf 0-5 [facility] Abdomen Completeon Abdomen Complete [facility] [address] [place], [place] [address] Abdomen Complete MR#: [id number] Acct: [id number] Name: AIDEN FRENCH Rep #: [id number] : 1990 F 34 From: Gurmeet Rodriguez MD PCP: Dr. Kishor Hernandez MD Status: REG CLI Study: Abdomen Complete Date of Exam: 04/07/25 Exam# [id number] Ordering Dr: Flip Hatfield DO PROCEDURE: ABDOMEN COMPLETE 04/07/2025 REASON FOR EXAM: ABDOMINAL PAIN TECHNIQUE: ABDOMEN COMPLETE COMPARISON: Previous abdominal pelvic CT FINDINGS: Liver: Normal echotexture and size at 14.1 cm. No discrete lesion or biliary dilatation. Gallbladder: Unremarkable. Gallbladder wall measures 2.3 mm Common bile duct: Normal measuring 4 mm. Pancreas: Visualized portions are sonographically unremarkable. Kidneys: The right kidney measures 10.4 cm. The left kidney measures 10.9 cm. No hydronephrosis, calculi or mass Spleen: Normal in size and echotexture measuring 10.8 cm. Aorta: Tapers normally IVC: Patent Peritoneal Findings: No ascites US/Abdomen Complete IMPRESSION: No suspicious sonographic findings Reading Location: [id number] CC: Dr. Kishor Hernandez MD; Flip Hatfield DO Junior Accountant Bookkeeper: Signed Normal [facility] CTA Chest W/WO Contraston CTA Chest W/WO Contrast [facility] [address] [place], [place] [address] CTA Chest W/WO Contrast MR#: [id number] Acct: [id number] Name: AIDEN FRENCH Rep #: [id number] : 1990 F 34 From: Elder evans MD PCP: Dr. Kishor Hernandez MD Status: REG ER Study: CTA Chest W/WO Contrast Date of Exam: 03/25/25 Exam# [id number] Ordering Dr: Flip Hatfield DO PROCEDURE: CTA CHEST W/WO CONTRAST 03/25/2025 REASON FOR EXAM: CHEST/BACK PAIN TECHNIQUE: CTA CHEST W/WO CONTRAST Multiplanar Sagittal and Coronal images were obtained. CONTRAST: Isovue 370 VOLUME: 100 mL One or more dose reduction techniques were used (e.g., Automated exposure control, adjustment of the mA and/or kV according to patient size, use of iterative reconstruction technique). RADIATION DOSE SUMMARY: CTDlvol: 12.96 mGy DLP: 448 mGycm COMPARISON: Chest radiograph on 03/24/2025. FINDINGS: Normal enhancement of the main pulmonary artery and right and left pulmonary arteries. Normal enhancement of the bilateral peripheral pulmonary arteries. There is no demonstrated pulmonary embolism. Normal thoracic aorta and visualized great vessels. There is no demonstrated aortic dissection. Normal heart and pericardium. Normal mediastinum. Normal hilar regions. Normal visualized trachea and bronchi. The lungs are well expanded. Normal pulmonary parenchyma. Normal pleura. Normal chest wall structures. Normal osseous structures. Normal visualized upper abdomen. CT/CTA Chest W/WO Contrast IMPRESSION: No demonstrated pulmonary embolism or arterial dissection. [facility] CC: Dr. Kishor Hernandez MD; Flip Hatfield DO Junior Accountant Bookkeeper: Signed Normal [facility] Emergency Department Summary on 03-25-2025 Emergency Department Summary [facility] Medical Records Department [address] [place] [address] Emergency Department Summary 03/25/25 MR#: [id number] Acct: [id number] Name: AIDEN FRENCH Rep #: [id number] : 1990 34 From: Flip Hatfield DO PCP: Dr. Kishor Hernandez MD Status:DEP ER Location: ED HPI History of Present Illness Chief Complaint: Chest Pain Informant: patient and EMS Narrative Narrative: Patient is a 34-year-old female with past medical history of anxiety and depression. She states that roughly 30 minutes to an hour prior to arrival she had developed sharp pain that she felt was more in the lower mid chest region that she states seemed to radiate towards her back and up towards her neck. She states has been no recent trauma or excessive activity. She denies any recent travel or surgery or history of DVT/PE. She denies any family history of cardiac disease at a young age. She states that there is no associated nausea vomiting or diaphoresis. Patient states she called EMS secondary to her symptoms and she initially had thoughts of signing off and not coming to the hospital but with concern this could be potential cardiac in nature they did not advise her that her safest option is to come to the hospital for further care and therefore she presents at this time [facility] Medical History Care and examination of [...] PRN PRN pain 5 Unknown History 5mg-325mg bupropion HCl 75 mg tablet 75 mg PO BID 03/24/25 Unknown Hist ory omeprazole 40 mg capsule,delayed 40 mg PO BID 03/24/25 Unknown Hist ory release Allergy/AdvReac Type Severity Reaction Status Date / Time No Known Allergies Allergy Verified 03/24/25 22:20 Family History no significant family his Surgical History History of ankle surgery Social History household members: family housing: house Smoking Status: Current every day smoker tobacco type: e-cigarettes substance use type: does not use ROS ROS ED Constitutional Constitutional ED: Denies chills or fever(s) Eyes Eyes: Denies blurry vision or change in vision ENT ENT ED: Denies sore throat Cardiovascular Cardiovascular: Reports chest pain; Denies palpitations or racing heartbeat Respiratory/Chest Respiratory/Chest: Denies cough or dyspnea Gastrointestinal Gastrointestinal: Denies abdominal pain, diarrhea, nausea or vomiting Genitourinary Genitourinary ED: Denies dysuria or hematuria Musculoskeletal Musculoskeletal: Reports back pain Integumentary Denies rash Neurologic Neurologic: Denies headache(s) Psychiatric Psychiatric: Reports anxiety and depression Hematologic/Lymphat ic Hematologic/Lymphat ic: Denies easy bleeding or easy bruising EXAM Physical Exam Const Vital Signs: 03/24/25 22:14 03/24/25 22:14 03/24/25 23:13 Temperature 97.6 F L Temperature Source Oral Pulse Rate 73 70 Respiratory Rate 18 12 Respiratory Effort Normal Blood Pressure 120/88 H 103/79 Blood Pressure Mean 98 87 Pulse Ox 100 96 Oxygen Delivery Method Room Air Room Air 03/25/25 00:00 03/25/25 01:00 03/25/25 01:39 Temperature 97.6 F L Temperature Source Pulse Rate 69 73 75 Respiratory Rate 13 12 16 Respiratory Effort Blood Pressure 109/59 L 109/64 99/54 L Blood Pressure Mean 75 79 69 Pulse Ox 96 96 94 Oxygen Delivery Method Room Air Room Air Positive well nourished and well developed General Appearance ED: well developed; Negative for pallor HEENT HEENT Narrative: Normocephalic atraumatic Eyes PERRL and EOMs intact bilaterally General Eye ED: Negative for scleral icterus Neck supple and no JVD Neck Narrative: No nuchal rigidity or meningeal signs Chest Wall palpation of chest normal Chest Narrative: No bony deformity or subcutaneous emphysema noted Resp normal respiratory effort and clear to auscultation bilaterally Cardio regular rate and regular rhythm Rate: other Other Details: Heart is (more content not included)... Normal [facility] L499.0042on 03-25-2025 Trop T High Sen Normal <=14 [facility] Comment on above: Result Comment: PT H BEEN DISCHARGED FROM ED Performed By: #### L 499.0042 #### [facility] [address] [place], [address] 12 Lead EKGon 03-24-2025 12 Lead EKG [facility] [address] [place] [address] 12 Lead EKG 03/24/25 2222 MR#: [id number] Acct: [id number] Name: AIDEN FRENCH Rep #: [id number] : 1990 34 From: Kenneth Villaseñor MD Attending Dr: Status: DEP ER Ordering Dr: Flip Hatfield DO Date: 03/24/25 Location: ED Sex: F C Admitted: Test Reason : CP Blood Pressure : */* mmHG Vent. Rate : 77 BPM Atrial Rate : 77 BPM P-R Int : 150 ms QRS Dur : 90 ms QT Int : 400 ms P-R-T Axes : 70 80 64 degrees QTcB Int : 452 ms Normal sinus rhythm with sinus arrhythmia Normal ECG Confirmed by Kenneth Villaseñor ([id number]), editorial director ELENO PINTO ([id number]) on 03/29/2025 11:34:52 AM Referred By: SUZIE Confirmed By: Kenneth Villaseñor 03/29/25 1134 Date Kenneth Villaseñor MD CC: Dr. Kishor Hernandez MD; Flip Hatfield DO Signed Normal [facility] Absolute lymphocyte countOrd ered By: Flip Hatfield on 03-24-2025 Lymphocytes Auto (Unsp spec) [#/Vol] 4.32 10*3/uL 0.83-4.51 [facility] Absolute neutrophil countOrd ered By: Flip Hatfield on 03-24-2025 Neutrophils (Bld) [#/Vol] 5.8 10*3/uL 2.0-7.7 [facility] Amorphous sediment detection in urine sediment by light microscopyOrdered By: Flip Hatfield on 03-24-2025 Amorphous sediment LM Ql (Urine sed) 1+ [facility] Anion gap in Serum or Plasma Ordered By: Flip Hatfield on 03-24-2025 Anion gap [Moles/Vol] 13 mmol/L - [facility] Automated lymphocyte count a s percentage of total leukocytesOrdered By: Flip Hatfield on 03-24-2025 Lymphocytes/100 WBC Auto (Unsp spec) 37.7 % [facility] BUN/creatinine ratioOrdered By: Flip Hatfield on 03-24-2025 Urea nitrogen/Creatinine [Mass ratio] 13.5 mg/mg - [facility] Basic Metabolic Profile (BMP )on 03-24-2025 BUN/CRE 13.5 RATIO Normal - [facility] Comment on above: Performed By: #### L 501.2450, L500.4050, L100.0100 #### [facility] [address] [place], [address] Calcium [Mass/Vol] 10.0 mg/dL Normal 7.6-11.0 [facility] Comment on above: Performed By: #### L 501.2450, L500.4050, L100.0100 #### [facility] [address] [place], [address] Chloride [Moles/Vol] 106 mmol/L Normal 98-108 [facility] Comment on above: Performed By: #### L 501.2450, L500.4050, L100.0100 #### [facility] [address] [place], [address] CO2 [Moles/Vol] 21.6 mmol/L Normal 21.0-32.0 [facility] Comment on above: Performed By: #### L 501.2450, L500.4050, L100.0100 #### [facility] [address] [place], [address] Creatinine [Mass/Vol] 0.88 mg/dL Normal 0.70-1.20 [facility] Comment on above: Performed By: #### L 501.2450, L500.4050, L100.0100 #### [facility] [address] [place], [address] ECRCL 86.61 ml/min Normal 50-250 [facility] Comment on above: Performed By: #### L 501.2450, L500.4050, L100.0100 #### [facility] [address] [place], [address] GAP 13 Normal 5-15 [facility] Comment on above: Performed By: #### L 501.2450, L500.4050, L100.0100 #### [facility] [address] [place], [address] GFR/1.73 sq M.predicted among non-blacks MDRD (S/P/Bld) [Vol rate/Area] 90 mL/min/{1.73_m2} Normal >60 [facility] Comment on above: Result Comment: mL/m in/1.73m2 CKD-EPI Creatinine Equation (2020) Performed By: #### L 501.2450, L500.4050, L100.0100 #### [facility] [address] [place], [address] Glucose [Mass/Vol] 89 mg/dL Normal 70-99 [facility] Comment on above: Performed By: #### L 501.2450, L500.4050, L100.0100 #### [facility] [address] [place], [address] Potassium [Moles/Vol] 4.4 mmol/L Normal 3.3-5.1 [facility] Comment on above: Result Comment: Hemo lysis present, Results??could be affected. ?? Performed By: #### L 501.2450, L500.4050, L100.0100 #### [facility] [address] [place], [address] Sodium [Moles/Vol] 140 mmol/L Normal 133-145 [facility] Comment on above: Performed By: #### L 501.2450, L500.4050, L100.0100 #### [facility] [address] [place], [address] Urea nitrogen [Mass/Vol] 12 mg/dL Normal - [facility] Comment on above: Performed By: #### L 501.2450, L500.4050, L100.0100 #### [facility] [address] [place], [address] Basophil percentageOrdered B y: Flip Hatfield on 03-24-2025 Basophils/100 WBC (Bld) 1.0 % 0-1 [facility] Bilirubin Test strip Ql (U)O rdered By: Flip Hatfield on 03-24-2025 Bilirubin Ql (U) Negative Negative [facility] Bilirubin directOrdered By: Flip Hatfield on 03-24-2025 Bilirubin.direct [Mass/Vol] mg/dL 0.00-0.30 [facility] Comment on above: Hemolysis present, R esults could be affected. Bilirubin, totalOrdered By: Flip Hatfield on 03-24-2025 Bilirubin [Mass/Vol] 0.33 mg/dL 0.00-1.30 [facility] CBC W/Diff, Automatedon 03-06 Absolute Lymph 4.32 X10 3/uL Normal 0.83-4.51 [facility] Comment on above: Performed By: #### L 501.2450, L500.4050, L100.0100 #### [facility] [address] [place], [address] Absolute Neut 5.8 X10 3/uL Normal 2.0-7.7 [facility] Comment on above: Performed By: #### L 501.2450, L500.4050, L100.0100 #### [facility] [address] [place], [address] Basophils/100 WBC (Bld) 1.0 % Normal 0-1 [facility] Comment on above: Performed By: #### L 501.2450, L500.4050, L100.0100 #### [facility] [address] [place], [address] Eosinophils/100 WBC (Bld) 3.8 % Normal 0-5 [facility] Comment on above: Performed By: #### L 501.2450, L500.4050, L100.0100 #### [facility] [address] [place], [address] Erythrocyte distribution width (RBC) [Ratio] 12.8 % Normal 11.6-14.6 [facility] Comment on above: Performed By: #### L 501.2450, L500.4050, L100.0100 #### [facility] [address] [place], [address] Hematocrit (Bld) [Volume fraction] 40.6 % Normal 37-47 [facility] Comment on above: Performed By: #### L 501.2450, L500.4050, L100.0100 #### [facility] [address] [place], [address] Hemoglobin (Bld) [Mass/Vol] 13.6 g/dL Normal 12.0-15.0 [facility] Comment on above: Performed By: #### L 501.2450, L500.4050, L100.0100 #### [facility] [address] [place], [address] IG% 0.200 Normal 0.0-0.9 [facility] Comment on above: Result Comment: IG% - Immature Granulocytes (promyelocytes, myelocytes and metamyelocytes) > 1% indicates that a LEFT SHIFT is Present. Performed By: #### L 501.2450, L500.4050, L100.0100 #### [facility] [address] [place], [address] Lymphocytes/100 WBC (Bld) 37.7 % Normal 19-41 [facility] Comment on above: Performed By: #### L 501.2450, L500.4050, L100.0100 #### [facility] [address] [place], [address] MCH (RBC) [Entitic mass] 29.5 pg Normal 27.0-32.0 [facility] Comment on above: Performed By: #### L 501.2450, L500.4050, L100.0100 #### [facility] [address] [place], [address] MCHC (RBC) [Mass/Vol] 33.5 g/dL Normal 32-36 [facility] Comment on above: Performed By: #### L 501.2450, L500.4050, L100.0100 #### [facility] [address] [place], [address] MCV (RBC) [Entitic vol] 88.1 fL Normal 81-99 [facility] Comment on above: Performed By: #### L 501.2450, L500.4050, L100.0100 #### [facility] [address] [place], [address] Monocytes/100 WBC (Bld) 6.6 % Normal 0-10 [facility] Comment on above: Performed By: #### L 501.2450, L500.4050, L100.0100 #### [facility] [address] [place], [address] Neutrophils/100 WBC (Bld) 50.7 % Normal 47-70 [facility] Comment on above: Performed By: #### L 501.2450, L500.4050, L100.0100 #### [facility] [address] [place], [address] Nucleated RBC (Bld) [#/Vol] 0 10*3/uL Normal 0-5 [facility] Comment on above: Performed By: #### L 501.2450, L500.4050, L100.0100 #### [facility] [address] [place], [address] Platelet mean volume (Bld) [Entitic vol] 9.7 fL Normal 6.2-12.0 [facility] Comment on above: Performed By: #### L 501.2450, L500.4050, L100.0100 #### [facility] [address] [place], [address] Platelets (Bld) [#/Vol] 466 10*3/uL High 150-450 [facility] Comment on above: Performed By: #### L 501.2450, L500.4050, L100.0100 #### [facility] [address] [place], [address] RBC (Bld) [#/Vol] 4.61 10*6/uL Normal 4.2-5.4 [facility] Comment on above: Performed By: #### L 501.2450, L500.4050, L100.0100 #### [facility] [address] [place], [address] RDW SD 41.2 fl Normal 35.1-43.9 [facility] Comment on above: Performed By: #### L 501.2450, L500.4050, L100.0100 #### [facility] [address] [place], [address] WBC (Bld) [#/Vol] 11.5 10*3/uL High 4.4-11.0 [facility] Comment on above: Performed By: #### L 501.2450, L500.4050, L100.0100 #### [facility] [address] [place], [address] Carbon dioxide, total [Moles /volume] in Central venous bloodOrdered By: Flip Hatfield on 03-24-2025 CO2 [Moles/Vol] 21.6 mmol/L 21.0-32.0 [facility] Chest PA and Lateralon 03-24 Chest PA and Lateral [facility] [address] [place] [address] Chest PA and Lateral MR#: [id number] Acct: [id number] Name: AIDEN FRENCH Rep #: [id number] : 1990 F 34 From: Elder evans MD PCP: Dr. Kishor Hernandez MD Status: [facility] ER Study: Chest PA and Lateral Date of Exam: 03/24/25 Exam# [id number] Ordering Dr: Flip Hatfield DO PROCEDURE: CHEST PA AND LATERAL 03/24/2025 REASON FOR EXAM: CHEST PAIN TECHNIQUE: CHEST PA AND LATERAL COMPARISON: 12/13/2023. FINDINGS: The lungs are expanded. There is no demonstrated parenchymal abnormality. There is no demonstrated pleural abnormality. Normal heart and pericardium. Normal mediastinum and jonny. Normal visualized pulmonary arteries. Normal visualized aortic arch and descending thoracic aorta. Normal visualized thoracic spine. Normal visualized ribs, clavicles, and shoulders. There is no demonstrated abnormality of the visualized soft tissue structures of the upper abdomen. RAD/Chest PA and Lateral IMPRESSION: No evidence for acute abnormality. Reading Location: [place] [address] CC: Dr. Kishor Hernandez MD; Flip Hatfield DO Junior Accountant Bookkeeper: Signed Normal [facility] Chloride assayOrdered By: Mireya Hatfield on 03-24-2025 Chloride [Moles/Vol] 106 mmol/L 98-108 [facility] D-Dimer Quantitative (DVT/PE )on 03-24-2025 D-DIMER QUANT 0.27 FEU/ug/m Normal 0.27-0.49 [facility] Comment on above: Result Comment: NORM AL D-Dimer level (<0.50) indicates no DVT or PE. Performed By: #### L 501.2450, L500.4050, L100.0100 #### [facility] [address] [place], [address] Eosinophil percentageOrdered By: Flip Hatfield on 03-24-2025 Eosinophils/100 WBC (Bld) 3.8 % 0-5 [facility] Erythrocyte distribution wid th ratioOrdered By: Flip Hatfield on 03-24-2025 Erythrocyte distribution width (RBC) [Ratio] 12.8 % 11.6-14.6 [facility] Erythrocyte distribution wid th standard deviationOrdered By: Flip Hatfield on 03-24-2025 Erythrocyte distribution width (RBC) [Ratio] 41.2 fl 35.1-43.9 [facility] Glomerular filtration rate ( GFR) estimation/1.73 sq m using serum, plasma, or whole bOrdered By: Flip Hatfield on 03-24-2025 GFR/1.73 sq M.predicted among non-blacks MDRD (S/P/Bld) [Vol rate/Area] 90 mL/min/{1.73_m2} >60 [facility] Comment on above: mL/min/1.73m2 CKD-EP I Creatinine Equation (2020) Hematocrit Auto (Bld) [Volum e fraction]Ordered By: Flip Hatfield on 03-24-2025 Hematocrit (Bld) [Volume fraction] 40.6 % 37-47 [facility] Hemoglobin measurementOrdere d By: Flip Hatfield on 03-24-2025 Hemoglobin (Bld) [Mass/Vol] 13.6 g/dL 12.0-15.0 [facility] Immature granulocytes/100 WB C Auto (Bld)Ordered By: Flip Hatfield on 03-24-2025 Immature granulocytes/100 WBC (Bld) 0.200 % 0.0-0.9 [facility] Comment on above: IG% - Immature Granu locytes (promyelocytes, myelocytes and metamyelocytes) > 1% indicates that a LEFT SHIFT is Present. Ketones Test strip Ql (U)Ord ered By: Flip Hatfield on 03-24-2025 Ketones Ql (U) Negative Negative [facility] L501.4021on 03-24-2025 Trop T High Sen < 6 Normal <=14 [facility] Comment on above: Performed By: #### L 501.2450, L500.4050, L100.0100 #### [facility] [address] [place], [place], [address] Laboratory - Chemistry and C hemistry - challengeOrdered By: Flip Hatfield on 03-24-2025 AST [Catalytic activity/Vol] 31 U/L <32 [facility] Comment on above: Hemolysis present, R esults could be affected. Lipaseon 03-24-2025 Lipase [Catalytic activity/Vol] 22 U/L Normal 13-75 [facility] Comment on above: Result Comment: Jef duran note: LIPASE revised reference range effective 23. New Lipase methodology. Expected to produce lower values than the previous assay method. NEW Reference Range: 13 - 75 U/L Performed By: #### L 501.2450, L500.4050, L100.0100 #### [facility] [address] [place], [address] Lipase measurementOrdered By : Flip Hatfield on 03-24-2025 Lipase [Catalytic activity/Vol] 22 U/L 13-75 [facility] Comment on above: Please note:LIPASE r evised reference range effective 23. New Lipase methodology. Expected to produce lower values than the previous assay method. NEW Reference Range: 13 - 75 U/L Liver Profileon 03-24-2025 Albumin [Mass/Vol] 4.4 g/dL Normal 3.5-5.0 [facility] Comment on above: Performed By: #### L 501.2450, L500.4050, L100.0100 #### [facility] [address] [place], [address] ALK PHOS 97 U/L Normal 35-104 [facility] Comment on above: Performed By: #### L 501.2450, L500.4050, L100.0100 #### [facility] [address] [place], [address] ALT [Catalytic activity/Vol] 20 U/L Normal <=34 [facility] Comment on above: Performed By: #### L 501.2450, L500.4050, L100.0100 #### [facility] [address] [place], [address] AST [Catalytic activity/Vol] 31 U/L Normal <=31 [facility] Comment on above: Result Comment: Hemo lysis present, Results??could be affected. ?? Performed By: #### L 501.2450, L500.4050, L100.0100 #### [facility] [address] [place], [address] Bilirubin [Mass/Vol] 0.33 mg/dL Normal 0.00-1.30 [facility] Comment on above: Performed By: #### L 501.2450, L500.4050, L100.0100 #### [facility] [address] [place], [address] D BILI < 0.08 Normal 0.00-0.30 [facility] Comment on above: Result Comment: Hemo lysis present, Results??could be affected. ?? Performed By: #### L 501.2450, L500.4050, L100.0100 #### [facility] [address] [place], [address] Globulin (S) [Mass/Vol] 3.1 g/dL Normal 2.2-4.2 [facility] Comment on above: Performed By: #### L 501.2450, L500.4050, L100.0100 #### [facility] [address] [place], [address] T PROT 7.5 g/dL Normal 5.9-8.4 [facility] Comment on above: Performed By: #### L 501.2450, L500.4050, L100.0100 #### [facility] [address] [place], [address] MCV (mean corpuscular volume ) determinationOrdered By: Flip Hatfield on 03-24-2025 MCV (RBC) [Entitic vol] 88.1 fL 81-99 [facility] Magnesiumon 03-24-2025 Magnesium [Mass/Vol] 2.2 mg/dL Normal 1.5-2.2 [facility] Comment on above: Performed By: #### L 501.2450, L500.4050, L100.0100 #### [facility] [address] [place], [address] Magnesium measurement (mass/ volume)Ordered By: Flip Hatfield on 03-24-2025 Magnesium (Unsp spec) [Mass/Vol] 2.2 mg/dL 1.5-2.2 [facility] Mean corpuscular hemoglobin (MCH) determinationOrdered By: Flip Hatfield on 03-24-2025 MCH (RBC) [Entitic mass] 29.5 pg 27.0-32.0 [facility] Mean corpuscular hemoglobin concentration (MCHC) determinationOrdered By: Flip Hatfield on 03-24-2025 MCHC (RBC) [Mass/Vol] 33.5 g/dL 32-36 [facility] Mean platelet volume determi nationOrdered By: Flip Hatfield on 03-24-2025 Platelet mean volume (Bld) [Entitic vol] 9.7 fL 6.2-12.0 [facility] Microscopic analysis of urin e for red blood cells (RBC)Ordered By: Flip Hatfield on 03-24-2025 Microscopic analysis of urine for red blood cells (RBC) 0 SEEN /hpf 0-5 [facility] Monocyte percentageOrdered B y: Flip Hatfield on 03-24-2025 Monocytes/100 WBC (Bld) 6.6 % 0-10 [facility] Mucus LM Ql (Urine sed)Order ed By: Flip Hatfield on 03-24-2025 Mucus Ql (Urine sed) 0 SEEN [facility] Neutrophil percentageOrdered By: Flip Hatfield on 03-24-2025 Neutrophils/100 WBC (Bld) 50.7 % 47-70 [facility] Nitrite Test strip Ql (U)Ord ered By: Flip Hatfield on 03-24-2025 Nitrite Ql (U) Negative Negative [facility] Nucleated red blood cell per centageOrdered By: Flip Hatfield on 03-24-2025 Nucleated RBC/100 WBC (Bld) [Ratio] 0 % 0-5 [facility] Platelet countOrdered By: Mireya Hatfield on 03-24-2025 Platelets (Bld) [#/Vol] 466 10*3/uL High 150-450 [facility] Potassium measurement (mass/ volume)Ordered By: Flip Hatfield on 03-24-2025 Potassium (Unsp spec) [Mass/Vol] 4.4 mmol/L 3.3-5.1 [facility] Comment on above: Hemolysis present, R esults could be affected. ,Urineon 03-24-2025 Beta HCG ( test) Ql (U) Negative Normal [facility] Comment on above: Result Comment: Very dilute urine specimens, as indicated by a low specific gravity, may not contain circulation sales representative levels of hCG. If is still suspected, a first morning urine specimen should be collected 48 hours later and tested. Performed By: #### L 501.0020, L500.4050, L100.0100 #### [facility] [address] [place], [address] Protein Test strip Ql (U)Ord ered By: Flip Hatfield on 03-24-2025 Protein Ql (U) Negative Negative [facility] RBC Auto (Bld) [#/Vol]Ordere d By: Flip Hatfield on 03-24-2025 RBC (Bld) [#/Vol] 4.61 10*6/uL 4.2-5.4 [facility] Serum creatinine measurement (mass/volume)Ordered By: Flip Hatfield on 03-24-2025 Creatinine [Mass/Vol] 0.88 mg/dL 0.70-1.20 [facility] Serum globulin measurementOr dered By: Flip Hatfield on 03-24-2025 Globulin (S) [Mass/Vol] 3.1 g/dL 2.2-4.2 [facility] Serum glucose measurement (m ass/volume)Ordered By: Flip Hatfield on 03-24-2025 Glucose [Mass/Vol] 89 mg/dL 70-99 [facility] Serum or plasma alanine frye otransferase (ALT) measurementOrdered By: Flip Hatfield on 03-24-2025 ALT [Catalytic activity/Vol] 20 U/L <35 [facility] Serum or plasma albumin talya urement (mass/volume)Ordered By: Flip Hatfield on 03-24-2025 Albumin [Mass/Vol] 4.4 g/dL 3.5-5.0 [facility] Serum or plasma alkaline dudley sphatase measurementOrdered By: Flip Hatfield on 03-24-2025 ALP [Catalytic activity/Vol] 97 U/L 35-104 [facility] Serum or plasma calcium talya urement (mass/volume)Ordered By: Flip Hatfield on 03-24-2025 Calcium [Mass/Vol] 10.0 mg/dL 7.6-11.0 [facility] Serum or plasma urea nitroge n measurement (mass/volume)Ordered By: Flip Hatfield on 03-24-2025 Urea nitrogen [Mass/Vol] 12 mg/dL 4-19 [facility] Sodium levelOrdered By: Tommy Hatfield on 03-24-2025 Sodium [Moles/Vol] 140 mmol/L 133-145 [facility] Squamous epithelial cells de tection in urine sediment by light microscopyOrdered By: Flip Hatfield on 03-24-2025 Epithelial cells.squamous LM Ql (Urine sed) 0-5 SEEN /hpf 5-10 [facility] Total proteinOrdered By: Gorge Hatfield on 03-24-2025 Protein [Mass/Vol] 7.5 g/dL 5.9-8.4 [facility] Troponin T.cardiac [Mass/vol ume] in Serum or Plasma by High sensitivity methodOrdered By: Flip Hatfield on 03-24-2025 Troponin T.cardiac High sensitivity method [Mass/Vol] < 6 ng/L <14 [facility] Urinalysis, Completeon 03-24 AMORPHOUS 1+ Normal [facility] Comment on above: Order Comment: NILSA CTOR TO SPECIFY Performed By: #### L 501.2450, L500.4050, L100.0100 #### [facility] [address] [place], [address] BACTERIA RARE Normal None Seen [facility] Comment on above: Order Comment: NILSA CTOR TO SPECIFY Performed By: #### L 501.2450, L500.4050, L100.0100 #### [facility] [address] [place], [address] EPI,SQUAMOUS 0-5 SEEN Normal 5-10 [facility] Comment on above: Order Comment: COLLE CTOR TO SPECIFY Performed By: #### L 501.2450, L500.4050, L100.0100 #### [facility] [address] [place], [address] Mucus Ql (Urine sed) 0 SEEN Normal [facility] Comment on above: Order Comment: COLLE CTOR TO SPECIFY Performed By: #### L 501.2450, L500.4050, L100.0100 #### [facility] [address] [place], [address] RBC 0 SEEN Normal 0-5 [facility] Comment on above: Order Comment: COLLE CTOR TO SPECIFY Performed By: #### L 501.2450, L500.4050, L100.0100 #### [facility] [address] [place], [address] WBC 0 SEEN Normal 0-5 [facility] Comment on above: Order Comment: COLLE CTOR TO SPECIFY Performed By: #### L 501.3830, L500.4050, L100.0100 #### [facility] [address] [place], [place], [id number] Urine clarityOrdered By: Gorge Hatfield on 03-24-2025 Clarity (U) Clear Clear [facility] Urine color determinationOrd ered By: Flip Hatfield on 03-24-2025 Color (U) Yellow Yellow [facility] Urine glucose detectionOrder ed By: Flip Hatfield on 03-24-2025 Glucose Ql (U) Normal mg/dl Normal [facility] Urine leukocyte esterase det ection by dipstickOrdered By: Flip Hatfield on 03-24-2025 Leukocyte esterase Test strip Ql (U) Negative Negative [facility] Urine pHOrdered By: Flip lane on 03-24-2025 pH (U) 8.0 [pH] 5.0 - 8.0 [facility] Urine testOrdered By: Flip Hatfield on 03-24-2025 HCG ( test) Ql (U) Negative [facility] Comment on above: Very dilute urine sp ecimens, as indicated by a low specificgravity, may not contain circulation sales representative levels of hCG. If is still suspected, a first morning urinespecimen should be collected 48 hours later and tested. Urine sediment bacteria coun t by microscopy (number/high power field)Ordered By: Flip Hatfield on 03-24-2025 Bacteria LM.HPF (Urine sed) [#/Area] RARE /hpf None Seen [facility] Urine specific gravity measu rementOrdered By: Flip Hatfield on 03-24-2025 Specific gravity (U) [Rel density] 1.015 1.002-1.030 [facility] Urine urobilinogen measureme ntOrdered By: Flip Hatfield on 03-24-2025 Urobilinogen Ql (U) Normal mg/dl Normal [facility] White blood cell (WBC) count Ordered By: Flip Hatfield on 03-24-2025 WBC (Bld) [#/Vol] 11.5 10*3/uL High 4.4-11.0 [facility] White blood cell countOrdere d By: Flip Hatfield on 03-24-2025 White blood cell count 0 SEEN /hpf 0-5 [facility] CNPNon 03-18-2025 CNPN Telephone (INTMWS) ---- AIDEN FRENCH ([id number]) 1990 F Date Time Provider Department 03/18/25 [...] message on vm to call office back KLEVER Smith Julia, LPN 03/23/2025 10:46 AM Signed 2nd message left asking for return call. Bella Lemus RN 03/23/2025 3:36 PM Signed Patient notified. Bella Lemus RN Allergies As of Date: 03/18/2025 (No Known Allergies) Date Reviewed: 02/04/2025 Reviewed by: Lisa Pulliam, RT(R) - Partially Assessed Reason for Visit: Patient Question [6917] Order(s):buPROPion (WELLBUTRIN) 75 mg tabletTake 1 tablet by mouth two times a day.Disp: 30 tabletRfl: 2 Prescriptions as of 03/23/2025 - buPROPion (WELLBUTRIN) 75 mg tablet Take [...] Encounter Status:Closed by DAYSI OLMSTEAD on 03/21/25 [facility] NM GASTRIC EMPTYING SOLIDon 02-04-2025 NM GASTRIC EMPTYING SOLID * * *Final Report* * * DATE OF EXAM: Feb 04 2025 12:42PM WON 0017 - NM GASTRIC EMPTYING SOLID / [...] gastric emptying rate for the solid meal. Junior Accountant Bookkeeper: AGUSTINA Transcribe Date/Time: Feb 04 2025 12:43P Dictated by : FLAVIA WISE MD This examination was interpreted and the report reviewed and electronically signed by: FLAVIA WISE MD on Feb 04 2025 12:45PM [facility] [id number] [id number] Normal [facility] Stomach Views for gastric emptying solid phase W radionuclide Sean 02-04-2025 IMPRESSION: Normal gastric emptying rate for the solid meal. Junior Accountant Bookkeeper: [facility] Transcribe Date/Time: Feb 04 2025 12:43P Dictated by : FLAVIA WISE MD This examination was interpreted and the report reviewed and electronically signed by: FLAVIA WISE MD on Feb 04 2025 12:45PM [facility] DIVISION OF RADIOLOGY * * *Final Report* * * DATE OF EXAM: Feb 04 2025 12:42PM [address] GASTRIC EMPTYING SOLID / PROCEDURE REASON: Dyspepsia [...] (normal range, 0-10%) DIVISION OF RADIOLOGY Provider, [facility] Deweese - 02/04/2025 * * *Final Report* * * DATE OF EXAM: Feb 04 2025 12:42PM [facility] / PROCEDURE REASON: Dyspepsia [...] gastric emptying rate for the solid meal. Junior Accountant Bookkeeper: [facility] Transcribe Date/Time: Feb 04 2025 12:43P Dictated by : FLAVIA WISE MD This examination was interpreted and the report reviewed and electronically signed by: FLAVIA WISE MD on Feb 04 2025 12:45PM EST [facility] Radiology Study observation (narrative) Rafal godinez [facility] Stomach Views for gastric emptying solid phase W radionuclide POOrdered By: [facility] Provider on 02-04-2025 [facility] Emergency Department Summary on 12-06-2024 Emergency Department Summary [facility] Medical Records Department [address] [place] [address] Emergency Department Summary 12/06/24 MR#: [id number] Acct: [id number] Name: AIDEN FRENCH Rep #: [id number] : 1990 34 From: Raul Light MD [...] her left ankle by orthopedist at the [facility]. She denies chest pain. She denies shortness [...] Plan Triage (more content not included)... Normal [facility] Venous Duplex Imag/Limited/U nion 12-06-2024 Venous Duplex Imag/Limited/Uni [facility] [address] [place] [address] Venous Duplex Imag/Limited/Uni MR#: [id number] Acct: [id number] Name: AIDEN FRENCH Rep #: [id number] : 1990 F 34 From: Suzanna Ponce DO PCP: Dr. Kishor Hernandez MD Status: REG ER Study: Venous Duplex Imag/Limited/Uni Date of Exam: 0 12/06/24 Exam# [id number] Ordering Dr: Raul Light MD EXAM: VENOUS [...] identified in the left extremity. Reading Location: [facility] CC: Dr. Kishor Hernandez MD; Dr. Raul Light MD Junior Accountant Bookkeeper: Signed [facility] CNOVon 10-27-2024 CNOV Office Visit ([facility]) ---- AIDEN FRENCH ([id number]) 1990 F Date Time Provider Department 10/27/24 12:30 PM AMIRAH RIVERA [facility] During your visit today, we recorded the following information about you: Temperature Pulse Respiration Blood pressure 98.5 degrees 104/minute 20/minute 114/66 Weight 84 kg Amirah Rivera PA-C 10/27/2024 12:34 PM Signed This note was created using NoteWriter. Subjective Aiden French is a 34 year [...] Diagnosis:Viral illness [B34.9] Order(s):STREP A MOLECULAR (POC) [0904973] Order #: [id number]. #:[id number] benzonatate (TESSALON PERLE) 100 mg capsuleTake 1 [...] antepartum [O (more content not included)... Normal [facility] STREP A MOLECULAR (POC)on Procedural Control Valid [facility] Strep A (POCT) Negative Negative [facility] CBC W/Diff, Automatedon 10-06 Absolute Lymph 0.50 X10 3/uL Low 0.83-4.51 [facility] Comment on above: Performed By: #### L 501.2450, L500.4050, L100.0100 #### [facility] [address] [place], [address] Absolute Neut 15.2 X10 3/uL High 2.0-7.7 [facility] Comment on above: Performed By: #### L 501.2450, L500.4050, L100.0100 #### [facility] [address] [place], [address] Basophils/100 WBC (Bld) 0.2 % Normal 0-1 [facility] Comment on above: Performed By: #### L 501.2450, L500.4050, L100.0100 #### [facility] [address] [place], [address] Eosinophils/100 WBC (Bld) 0.7 % Normal 0-5 [facility] Comment on above: Performed By: #### L 501.2450, L500.4050, L100.0100 #### [facility] [address] [place], [address] Erythrocyte distribution width (RBC) [Ratio] 12.5 % Normal 11.6-14.6 [facility] Comment on above: Performed By: #### L 501.2450, L500.4050, L100.0100 #### [facility] [address] [place], [address] Hematocrit (Bld) [Volume fraction] 41.8 % Normal 37-47 [facility] Comment on above: Performed By: #### L 501.2450, L500.4050, L100.0100 #### [facility] [address] [place], [address] Hemoglobin (Bld) [Mass/Vol] 13.7 g/dL Normal 12.0-15.0 [facility] Comment on above: Performed By: #### L 501.2450, L500.4050, L100.0100 #### [facility] [address] [place], [address] IG% 0.500 Normal 0.0-0.9 [facility] Comment on above: Result Comment: IG% - Immature Granulocytes (promyelocytes, myelocytes and metamyelocytes) > 1% indicates that a LEFT SHIFT is Present. Performed By: #### L 501.2450, L500.4050, L100.0100 #### [facility] [address] [place], [address] Lymphocytes/100 WBC (Bld) 3.0 % Low 19-41 [facility] Comment on above: Performed By: #### L 501.2450, L500.4050, L100.0100 #### [facility] [address] [place], [address] MCH (RBC) [Entitic mass] 28.9 pg Normal 27.0-32.0 [facility] Comment on above: Performed By: #### L 501.2450, L500.4050, L100.0100 #### [facility] [address] [place], [address] MCHC (RBC) [Mass/Vol] 32.8 g/dL Normal 32-36 [facility] Comment on above: Performed By: #### L 501.2450, L500.4050, L100.0100 #### [facility] [address] [place], [address] MCV (RBC) [Entitic vol] 88.2 fL Normal 81-99 [facility] Comment on above: Performed By: #### L 501.2450, L500.4050, L100.0100 #### [facility] [address] [place], [address] Monocytes/100 WBC (Bld) 3.7 % Normal 0-10 [facility] Comment on above: Performed By: #### L 501.2450, L500.4050, L100.0100 #### [facility] [address] [place], [address] Neutrophils/100 WBC (Bld) 91.9 % High 47-70 [facility] Comment on above: Performed By: #### L 501.2450, L500.4050, L100.0100 #### [facility] [address] [place], [address] Nucleated RBC (Bld) [#/Vol] 0 10*3/uL Normal 0-5 [facility] Comment on above: Performed By: #### L 501.2450, L500.4050, L100.0100 #### [facility] [address] [place], [address] Platelet mean volume (Bld) [Entitic vol] 9.3 fL Normal 6.2-12.0 [facility] Comment on above: Performed By: #### L 501.2450, L500.4050, L100.0100 #### [facility] [address] [place], [address] Platelets (Bld) [#/Vol] 371 10*3/uL Normal 150-450 [facility] Comment on above: Performed By: #### L 501.2450, L500.4050, L100.0100 #### [facility] [address] [place], [address] RBC (Bld) [#/Vol] 4.74 10*6/uL Normal 4.2-5.4 [facility] Comment on above: Performed By: #### L 501.2450, L500.4050, L100.0100 #### [facility] [address] [place], [address] RDW SD 40.0 fl Normal 35.1-43.9 [facility] Comment on above: Performed By: #### L 501.2450, L500.4050, L100.0100 #### [facility] [address] [place], [address] WBC (Bld) [#/Vol] 16.6 10*3/uL High 4.4-11.0 [facility] Comment on above: Performed By: #### L 501.2450, L500.4050, L100.0100 #### [facility] [address] [place], [address] Comprehensive Metabolic Prof [facility] 10-19-2024 Albumin [Mass/Vol] 3.6 g/dL Normal 3.2-5.0 [facility] Comment on above: Performed By: #### L 501.2450, L500.4050, L100.0100 #### [facility] [address] [place], [address] Albumin/Globulin [Mass ratio] 0.9 {ratio} Normal 0.9-2.4 [facility] Comment on above: Performed By: #### L 501.2450, L500.4050, L100.0100 #### [facility] [address] [place], [address] ALK P 94 U/L Normal 45-117 [facility] Comment on above: Performed By: #### L 501.2450, L500.4050, L100.0100 #### [facility] [address] [place], [address] ALT [Catalytic activity/Vol] 23 U/L Normal 13-56 [facility] Comment on above: Performed By: #### L 501.2450, L500.4050, L100.0100 #### [facility] [address] [place], [address] AST [Catalytic activity/Vol] 14 U/L Low 15-37 [facility] Comment on above: Performed By: #### L 501.2450, L500.4050, L100.0100 #### [facility] [address] [place], [address] Bilirubin [Mass/Vol] 0.80 mg/dL Normal 0.20-1.00 [facility] Comment on above: Result Comment: For patients on eltrombopag therapy, use of Dimension Stuart TBIL is not recommended. Performed By: #### L 501.2450, L500.4050, L100.0100 #### [facility] [address] [place], [address] BUN/CRE 29.2 RATIO High 10-20 [facility] Comment on above: Performed By: #### L 501.2450, L500.4050, L100.0100 #### [facility] [address] [place], [address] CA,Total 8.9 mg/dL Normal 8.5-10.1 [facility] Comment on above: Performed By: #### L 501.2450, L500.4050, L100.0100 #### [facility] [address] [place], [address] Chloride [Moles/Vol] 112 mmol/L High 98-107 [facility] Comment on above: Performed By: #### L 501.2450, L500.4050, L100.0100 #### [facility] [address] [place], [address] CO2 [Moles/Vol] 25.0 mmol/L Normal 21.0-32.0 [facility] Comment on above: Performed By: #### L 501.2450, L500.4050, L100.0100 #### [facility] [address] [place], [address] Creatinine [Mass/Vol] 0.86 mg/dL Normal 0.55-1.02 [facility] Comment on above: Result Comment: The validity of the calculated GFR GFRAA in patients over 70 years has not been determined. Clinical correlation is essential. Performed By: #### L 501.2450, L500.4050, L100.0100 #### [facility] [address] [place], [address] ECRCL 89.87 ml/min Normal [facility] Comment on above: Performed By: #### L 501.2450, L500.4050, L100.0100 #### [facility] [address] [place], [address] EST GFR - AA 99 mL/min Normal >60 [facility] Comment on above: Result Comment: Afri can Marshallese GFR Calc Performed By: #### L 501.2450, L500.4050, L100.0100 #### [facility] [address] [place], [address] GAP 3 Low 5-15 [facility] Comment on above: Performed By: #### L 501.2450, L500.4050, L100.0100 #### [facility] [address] [place], [address] GFR/1.73 sq M.predicted among non-blacks MDRD (S/P/Bld) [Vol rate/Area] 82 mL/min/{1.73_m2} Normal >60 [facility] Comment on above: Result Comment: Non- GFR Calc Performed By: #### L 501.2450, L500.4050, L100.0100 #### [facility] [address] [place], [address] Globulin (S) [Mass/Vol] 4.1 g/dL Normal 2.2-4.2 [facility] Comment on above: Performed By: #### L 501.2450, L500.4050, L100.0100 #### [facility] [address] [place], [address] Glucose [Mass/Vol] 110 mg/dL High 74-106 [facility] Comment on above: Result Comment: Fast ing Glucose result from 100 to 125 mg/dL suggests IMPAIRED HOMEOSTASIS per A.D.A. criteria. Performed By: #### L 501.2450, L500.4050, L100.0100 #### [facility] [address] [place], [address] Potassium [Moles/Vol] 4.2 mmol/L Normal 3.5-5.1 [facility] Comment on above: Performed By: #### L 501.2450, L500.4050, L100.0100 #### [facility] [address] [place], [address] Sodium [Moles/Vol] 140 mmol/L Normal 136-145 [facility] Comment on above: Performed By: #### L 501.2450, L500.4050, L100.0100 #### [facility] [address] [place], [address] T PROT 7.7 g/dL Normal 6.4-8.2 [facility] Comment on above: Performed By: #### L 501.2450, L500.4050, L100.0100 #### [facility] [address] [place], [address] Urea nitrogen [Mass/Vol] 25 mg/dL High 7-18 [facility] Comment on above: Performed By: #### L 501.2450, L500.4050, L100.0100 #### [facility] [address] [place], [address] Emergency Department Summary on 10-19-2024 Emergency Department Summary [facility] Medical Records Department [address] [place] [address] Emergency Department Summary 10/19/24 MR#: [id number] Acct: [id number] Name: AIDEN FRENCH Rep #: [id number] : 1990 34 From: Jorge Hinson DO [...] complaints. Patient denies any fevers or chills. [facility] Medical History Care and examination of lactating mother Vaginal delivery History of depression History of hemorrhage GDM, class A1 SROM (spontaneous rupture of membranes) Active labor at term Infertility hemorrhage depression Gestational diabetes Anxiety Depression Ovarian cyst Home Medications ???Medication ???Instructions ???Recorded ???Last Taken ???Type docosahexaenoic acid 200 mg mg PO DAILY 08/07/23 Unknown History capsule ( DHA) sertraline 25 [...] for pancreat (more content not included)... Normal [facility] Lipaseon 10-19-2024 Lipase [Catalytic activity/Vol] 23 U/L Normal 13-75 [facility] Comment on above: Result Comment: Jef duran note: LIPASE revised reference range effective 23. New Lipase methodology. Expected to produce lower values than the previous assay method. NEW Reference Range: 13 - 75 U/L Performed By: #### L 501.2450, L500.4050, L100.0100 #### [facility] [address] [place], [place], [id number] ,Serum,hCG Quali.on 10-19-2024 HCG, SERUM QUAL Negative Normal [facility] Comment on above: Performed By: #### L 700.6800 #### [facility] [address] [place], [address] Urinalysis, Completeon 10-19 BACTERIA 1+ /hpf Normal None Seen [facility] Comment on above: Order Comment: NILSA REECEOR TO SPECIFY Performed By: #### L 400.0001 #### [facility] [address] [place], [address] EPI,SQUAMOUS 0-5 SEEN Normal 5-10 [facility] Comment on above: Order Comment: NILSA CTOR TO SPECIFY Performed By: #### L 400.0001 #### [facility] [address] [place], [address] Mucus Ql (Urine sed) 1+ /hpf Normal [facility] Comment on above: Order Comment: COLLE CTOR TO SPECIFY Performed By: #### L 400.0001 #### [facility] [address] [place], [address] RBC 10-25 SEEN Normal 0-5 [facility] Comment on above: Order Comment: COLLE CTOR TO SPECIFY Performed By: #### L 400.0001 #### [facility] [address] [place], [address] WBC 0 SEEN Normal 0-5 [facility] Comment on above: Order Comment: [facility] CTOR TO SPECIFY Performed By: #### L 400.0001 #### [facility] [address] [place], [place], [address] CNOVon 10-13-2024 [facility] AIDEN FRENCH ([id number]) 1990 F Date Time Provider Department 10/13/24 12:00 PM ABEL THORNTON [facility] During your visit today, we recorded the following information about you: Temperature Pulse Respiration Blood pressure 97.8 degrees 88/minute 16/minute 118/68 Weight 86.5 kg Abel Thornton APRN.[employer]IT[employer] POLISHER 10/13/2024 12:55 PM Signed Subjective Came in [...] history is provided by the patient. No speech language assistant was used. Pain (foot) Review of Systems [...] IMPRESSION IMPRESSION: No acute process is seen. Junior Accountant Bookkeeper: AGUSTINA Transcribe Date/Time: Oct 13 2024 12:46P Dictated by : DYANA CAZARES MD Try to rest to take Tylenol and ice foot at this time. Offered podiatry patient not interested at this time we will follow-up if signs and symptoms persist. Patient agreeable to care plan. Abel Thornton APRN.[employer]ER Allergies As of Date: 10/13/2024 (No Known Allergies) Date Reviewed: 10/13/2024 Reviewed by: Belem Duenas MA - Fully Assessed Reason for Visit: Pain (foot) [760] Cmt: right x 4-5 days,. denies injury Primary Visit Diagnosis:Pain [R52] Order(s):XR FOOT GENERAL 3V AP/LAT/OBL RIGHT [[id number]] Order #: [id number] FUTURE Prescriptions as of 10/13/2024 - hydrocortisone-pram [...] deficit [R41.840 (more content not included)... Normal [facility] XR FOOT 3V AP/LAT/OBL RTon 0 10-13-2024 XR FOOT 3V AP/LAT/OBL RT * * [...] seen. IMPRESSION: No acute process is seen. Junior Accountant Bookkeeper: AGUSTINA Transcribe Date/Time: Oct 13 2024 12:46P Dictated by : DYANA CAZARES MD This examination was interpreted and the report reviewed and electronically signed by: DYANA CAZARES MD on Oct 13 2024 12:47PM EST [id number] Normal [facility] XR Foot - right AP and Later al and obliqueon 10-13-2024 IMPRESSION: No acute process is seen. Junior Accountant Bookkeeper: PSCB Transcribe Date/Time: Oct 13 2024 12:46P [...] tissue abnormality seen. DIVISION OF RADIOLOGY Provider, [facility] [place] - 10/13/2024 * * *Final Report* * * DATE OF EXAM: Joe 8 2025 12:20PM WOX [id number] - XR FOOT 3V [...] IMPRESSION IMPRESSION: No acute process is seen. Junior Accountant Bookkeeper: PSCB Transcribe Date/Time: Oct 13 2024 12:46P Dictated by : DYANA CAZARES MD This examination was interpreted and the report reviewed and electronically signed by: DYANA CAZARES MD on Oct 13 2024 12:47PM [facility] Radiology Study observation (narrative) Rafal Sapp XR Foot - right AP and Later al and obliqueOrdered By: Ccf Provider on 10-13-2024 [facility] CNCOon 09-23-2024 CNCO Letter Text Normal [facility] CNOVon 09-23-2024 CNOV Office Visit (GSTNOR) ---- AIDEN FRENCH ([id number]) 1990 F Date Time Provider Department 09/23/24 8:25 AM JOSE DELGADO GSTNOR During your visit today, we recorded the following information about you: Pulse Blood pressure Weight Height 75/minute 122/74 82.6 kg 1.524 m Jose Delgado, SENIOR PHYSICIAN.[employer]ER 09/23/2024 8:48 AM Signed CHIEF COMPLAINT: Patient [...] SURGICAL HISTORY Procedure Laterality Date EGD W/O [facility] SPEC VARICIES INJ 08/03/2024 FAMILY HISTORY Problem [...] Date Reviewed: 09/23/2024 Reviewed by: Jose Delgado APRN.[employer] - Fully Assessed Reason for Visit: Recheck [92] Cmt: EGD done Primary Visit Diagnosis:Gastroeso phageal reflux disease with esophagitis without hemorrhage [K21.00] Other Visit Diagnosis:Hiatal hernia [K44.9] Order(s):omeprazole (OK (more content not included)... Normal [facility] [id number] 08-03-2024 [id number] HNO ID: [id number] Author: SHERYL HUI RN Service: ? Author Type: Registered Nurse Type: [id number] Filed: 08/03/2024 15:21 Note Text: The patient received a copy of EGD discharge instructions that contain information for how to contact the physician who performed the procedure and when to seek medical care. Normal [facility] ANES POSTPROC EVALon 024 ANES POSTPROC EVAL HNO ID: [id number] Author: ERLIN MALDONADO APRN.CRNA Service: Anesthesiology Author Type: Nurse Equipment Operating Engineer Type: Anesthesia Postprocedure Evaluation Filed: 08/03/2024 15:19 [...] Anesthesia Observations No Documentation SIGNATURE: Erlin Maldonado APRN.CONVERTER SUPERVISOR PATIENT NAME: Aiden French DATE: August 03, 2024 TIME: 3:19 PM CSN: [id number] Normal [facility] EGD Study observation Narrat iveon 08-03-2024 [facility] Gastrointestinal Endoscopy Patient Name: Aiden French Procedure Date: 08/03/2024 2:54 PM Date of : 1990 Admit Type: Outpatient Age: 34 Room: [facility] 1 Gender: Female Note Status: Finalized Attending MD: Edgardo Ramirez MD, [id number] Procedure: Upper GI endoscopy Indications: Heartburn Providers: [...] present medications. Procedure Code(s): --- Professional --- 22864, Esophago (more content not included)... PROVATION [facility] Radiology Study observation (narrative) [facility] HISTORY PHYSICALon HISTORY PHYSICAL HNO ID: [id number] Author: EDGARDO RAMIREZ MD Service: Gastroenterology Author [...] Ayala MD PATIENT NAME: Aiden French Normal [facility] SURGICAL PATHOLOGYon CASE REPORT Normal [facility] Comment on above: Order Comment: Speci destini Type: TISSUE SPECIMENOrdering Facility: [facility] Address: [address] [place] [address] Result Comment: Surg ical Pathology Report Case: [id number] Authorizing Provider: Edgardo Ramirez MD Collected: 08/03/2024 03:07 PM Ordering Location: Ambulatory Surgery Received: 08/03/2024 07:46 PM Pathologist: Gumaro Springer MD Specimens: A) - Small Bowel, Duodenum, Biopsy B) - Stomach, Antrum, Biopsy C) - Esophagus, Distal, Biopsy Performed By: #### S ####[facility] LABIA [id number] [address] DIAGNOSIS COMMENT C. The findings are non-specific but may reflect reflux related injury in the appropriate clinical and endoscopic context. Normal [facility] Comment on above: Order Comment: Speci destini Type: TISSUE SPECIMENOrdering Facility: [facility] Address: [address] [place] [address] Performed By: #### S ####[facility] [id number] [address] FINAL DIAGNOSIS Normal [facility] Comment on above: Order Comment: Speci destini Type: TISSUE SPECIMENOrdering Facility: [facility] Address: [address] [place] [address] Result Comment: A. D uodenum, biopsy: -Duodenal mucosa with no diagnostic abnormality. B. Stomach, antrum, biopsy: -Gastric antral mucosa with no diagnostic abnormality. C. Esophagus, lower, biopsy: -Squamous epithelium with mild reactive change and increased eosinophils (up to 24 per high-powered field), see comment. Performed By: #### S ####[facility] LABCLIA [id number] [place] [address] [place] FINAL PERFORMING LAB Normal [facility] Comment on above: Order Comment: Speci men Type: TISSUE SPECIMENOrdering Facility: [facility] Address: [address] [place] [address] Result Comment: Diag nostic interpretation performed at [facility], [address] [place] [address] CLIA# [id number] Recreation Clerk: Rajesh Zepeda M.D. Performed By: #### S ####[facility] LABCLIA [id number] [place] [address] [place] GROSS DESCRIPTION Normal [facility] Comment on above: Order Comment: Speci men Type: TISSUE SPECIMENOrdering Facility: [facility] Address: [address] [place] [address] Result Comment: A. S mall Bowel, Duodenum, [...] 2024 10:34 PM Gross examination performed at [facility], [address] [place] [address] Performed By: #### S ####[facility] LABCLIA [id number] [place] [address] [place] Upper GI endoscopyon 024 Upper GI endoscopy [facility] Gastrointestinal Endoscopy Patient Name: Aiden French Procedure Date: 08/03/2024 2:54 PM Date of : 1990 Admit Type: Outpatient Age: 34 Room: NOR PROC RM 1 Gender: Female Note Status: Finalized Attending MD: Edgardo Ramirez MD, [id number] Procedure: Upper GI endoscopy Indications: Heartburn Providers: [...] present medications. Procedure Code(s): --- Professional --- 06167, Esophagogastroduode noscopy, flexible, transoral; with biopsy, single or multiple CPT copyright 2020 [employer]. All rights reserved. The codes documented in this report are preliminary and upon icer hand review may be revised to meet current compliance requirements. Attending Participation: I was present and participated during the entire procedure from insertion to removal of the endoscope. Scope In: 3:06:39 PM Scope Out: 3:11:46 PM MD Edgardo Yost MD 08/03/2024 3:16:48 PM This report has been signed electronically by Edgardo Ramirez MD Number of Addenda: 0 Note Initiated On: 08/03/2024 2:54 PM Estimated Blood Loss: Estimated blood loss was minimal. Normal [facility] ANES PRE-OPon 07-29-2024 ANES PRE-OP HNO ID: [id number] Author: ERLIN MALDONADO APRN.CONVERTER SUPERVISOR Service: Anesthesiology Author Type: Nurse Equipment Operating Engineer Type: Anesthesia Preprocedure Evaluation Filed: 08/03/2024 14:59 [...] and consent discussed: yes. Patient / Responsible Alliance Party agrees to proceed: yes Patient / [...] 48 hours of Surgery/Procedure. SIGNATURE: Ximena Mejia APRN.CONVERTER SUPERVISOR PATIENT NAME: Aiden French DATE: July 29, 2024 TIME: 4:13 PM CSN: [id number] [facility] CNCOon 07-29-2024 CNCO Letter Text Normal [facility] CNOVon 07-29-2024 CNOV Office Visit (GSTNOR) ---- AIDEN FRENCH ([id number]) 1990 F Date Time Provider Department 07/29/24 3:05 PM JOSE DELGADO GSTNOR During your visit today, we recorded the following information about you: Pulse Blood pressure Weight Height 75/minute 118/72 80.7 kg 1.524 m Jose Delgado, SUSAN[facility] 07/29/2024 7:41 PM Signed CHIEF COMPLAINT: Patient [...] in swallowing. 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 Normal [facility] CNOVon 06-15-2024 CNOV Office Visit (INTMWS) ---- AIDEN FRENCH ([id number]) 1990 F Date Time Provider Department 06/15/24 2:20 PM KISHOR HERNANDEZ INTMWS During your visit today, we recorded the following information about you: Pulse Respiration Blood pressure Weight 81/minute 16/minute 100/74 81.2 kg Height Last Period 1.524 m 06/16/23 Kishor Hernandez MD 06/15/2024 5:34 PM Signed Reason for Visit Patient presents with: Physical Aiden Win French is a 34 year old female [...] Visit: Phy (more content not included)... Normal [facility] H. pylori IgG IA Qlon 2023 H. PYLORI IGG, QUAL Negative Normal Negative [facility] Comment on above: Order Comment: Speci men Type: BLOOD SPECIMENOrdering Facility: [facility] Address: [address] [place] [address] Result Comment: Chiara ot exclude H. pylori infection if the specimen collected 3-4 weeks after onset of symptoms. Performed By: #### 1 [id number] ####[facility] LABCLIA [id number] [facility] [id number] [address] [place] CNOVon 06-09-2024 CNOV Office Visit (INTMWS) ---- AIDEN FRENCH ([id number]) 1990 F Date Time Provider Department 06/09/24 4:40 PM DARYA QUIÑONES INTMSARA During your visit today, we recorded the following information about you: Pulse Respiration Blood pressure Weight 72/minute 16/minute 112/78 79.8 kg Darya Quiñones APRN.[employer]IT[employer] POLISHER 06/09/2024 6:33 PM Signed CC: Patient presents with: Recheck: 6 week follow up HPI Aiden Win French is a 34 year old female [...] Covid-19 Vaccine( - 2022- season) Never done Influenza Vaccine(1) due on [...] Patient agreeable to treatment plan. Darya Quiñones APRN.[employer]IT[employer] POLISHER Referring Provider: SELF [200] Allergies As of Date: 06/09/2024 (No Known Allergies) Date Reviewed: 05/01/2024 Reviewed by: Jen Dickey MA - Precious Costa (more content not included)... Normal [facility] UA DIP, URINE (POC)on 2023 BILIRUBIN UA (POCT) Negative Negative [facility] CLARITY UA (POCT) Slightly Cloudy Cl [facility] COLOR UA (POCT) Yellow [facility] GLUCOSE UA (POCT) Negative Negative mg/dL [facility] Hemoglobin Ql (U) Negative [facility] KETONE UA (POCT) Negative Negative mg/dL [facility] LEUKOCYTES UA (POCT) Negative Negative [facility] NITRITE UA (POCT) Negative [facility] PH UA (POCT) 6.0 4.5 - 8.0 [facility] Protein Ql (U) Negative Negative mg/dL [facility] SPECIFIC GRAVITY UA (POCT) 1.025 1.005 - 1.030 [facility] UROBILINOGEN UA (POCT) 0.2 Normal E.U./d L [facility] Location:[facility], [address] , [place], [place], [id number] [place] [address] POINT OF CARE [facility] Absolute lymphocyte countOrd ered By: Shu Reeves on 02-04-2024 Lymphocytes Auto (Unsp spec) [#/Vol] 4.67 10*3/uL 0.83-4.51 [facility] Automated lymphocyte count a s percentage of total leukocytesOrdered By: Shu Reeves on 02-04-2024 Lymphocytes/100 WBC Auto (Unsp spec) 22.4 % 19-41 [facility] Basophil percentageOrdered B y: Shu Reeves on 02-04-2024 Basophils/100 WBC (Bld) 0.7 % 0-1 [facility] Eosinophils/100 WBC (Bld) 1.9 % 0-5 [facility] Hemoglobin (Bld) [Mass/Vol] 11.7 g/dL 12.0-15.0 [facility] Monocytes/100 WBC (Bld) 6.6 % 0-10 [facility] Neutrophils (Bld) [#/Vol] 14.0 10*3/uL 2.0-7.7 [facility] Neutrophils/100 WBC (Bld) 67.2 % 47-70 [facility] WBC (Bld) [#/Vol] 20.8 10*3/uL 4.4-11.0 [facility] Blood manual differential co mment interpretation (narrative result)Ordered By: Shu Reeves on 02-04-2024 Manual differential comment Hakan (Bld) [Interp] SCANNED [facility] Determination of erythrocyte mean corpuscular volume (MCV)Ordered By: Shu Reeves on 02-04-2024 MCV (RBC) [Entitic vol] 90.5 fL 81-99 [facility] Erythrocyte distribution wid th ratioOrdered By: Shu Reeves on 02-04-2024 Erythrocyte distribution width (RBC) [Ratio] 14.1 % 11.6-14.6 [facility] Erythrocyte distribution wid th standard deviationOrdered By: Shu Reeves on 02-04-2024 Erythrocyte distribution width (RBC) [Entitic vol] 46.1 fL 35.1-43.9 [facility] Hematocrit Auto (Bld) [Volum e fraction]Ordered By: Shu Reeves on 02-04-2024 Hematocrit (Bld) [Volume fraction] 35.1 % 37-47 [facility] Immature granulocytes/100 WB C Auto (Bld)Ordered By: Shu Reeves on 02-04-2024 Immature granulocytes/100 WBC (Bld) 1.200 % 0.0-0.9 [facility] Comment on above: IG% - Immature Granu locytes (promyelocytes, myelocytes and metamyelocytes) > 1% indicates that a LEFT SHIFT is Present. Laboratory - Hematology and Cell countsOrdered By: Shu Reeves on 02-04-2024 MCH (RBC) [Entitic mass] 30.2 pg 27.0-32.0 [facility] MCHC (RBC) [Mass/Vol] 33.3 g/dL 32-36 [facility] Nucleated RBC/100 WBC (Bld) [Ratio] 0 % 0-5 [facility] Platelet mean volume (Bld) [Entitic vol] 9.7 fL 6.2-12.0 [facility] Platelets (Bld) [#/Vol] 333 10*3/uL 150-450 [facility] RBC Auto (Bld) [#/Vol]Ordere d By: Shu Reeves on 02-04-2024 RBC (Bld) [#/Vol] 3.88 10*6/uL 4.2-5.4 [facility] Thin prep Papanicolaou smear with manual screeningOrdered By: Shu Reeves on 02-03-2024 Thin prep Papanicolaou smear with manual screening 105 mg/dL 74-106 [facility] Comment on above: MANAGEMENT OF PATIEN T CARE PER NURSING PROTOCOL No Panel InformationOrdered By: Shu Reeves on 02-02-2024 Vaginal Amniotic Fluid Detection Positive Negative [facility] Comment on above: Amniotic fluid prese nt indicates rupture of Membranes. RESULTS CALLED TO 02/02/242225 Chanell Cazares.REPORT READ BACK BY SAME . Serum Treponema species anti body detectionOrdered By: Shu Reeves on 02-02-2024 Treponema sp Ab Ql (S) Non-Reactive [facility] Examination level ultrasound on 01-30-2024 [facility] Radiology Study observation (narrative) [facility] URINE OB DIP B/Oon Glucose Ql (U) Negative Neg mg/dL [facility] Protein.monoclonal (U) [Mass/Vol] Negative Neg mg/dL [facility] URINE OB DIP B/Oon 4 Glucose Ql (U) Negative Neg mg/dL [facility] Protein.monoclonal (U) [Mass/Vol] Negative Neg mg/dL [facility] URINE OB DIP B/Oon 4 Glucose Ql (U) Negative Neg mg/dL [facility] Protein.monoclonal (U) [Mass/Vol] Negative Neg mg/dL [facility] No Panel InformationOrdered By: Rony Burgess on 12-14-2023 Troponin I High Sensitivity 5 pg/mL 3.0-54.0 [facility] Comment on above: Please Note: New Karen t Units and Gender Specific Reference Ranges. For more information see Policy Stat Procedure Stuart High Sensitivity Troponin (TNIH) and attachments. Absolute lymphocyte countOrd ered By: Rony Burgess on 12-13-2023 Lymphocytes Auto (Unsp spec) [#/Vol] 3.72 10*3/uL 0.83-4.51 [facility] Automated lymphocyte count a s percentage of total leukocytesOrdered By: Rony Burgess on 12-13-2023 Lymphocytes/100 WBC Auto (Unsp spec) 18.8 % 19-41 [facility] Basophil percentageOrdered B y: Rony Burgess on 12-13-2023 Basophils/100 WBC (Bld) 0.6 % 0-1 [facility] Chloride [Moles/Vol] 110 mmol/L 98-107 [facility] Eosinophils/100 WBC (Bld) 2.3 % 0-5 [facility] Glucose [Mass/Vol] 138 mg/dL 74-106 [facility] Comment on above: Fasting Glucose resu lt greater than or equal to 126 mg/dL suggests DIABETES MELLITUS per A.D.A. criteria. Hemoglobin (Bld) [Mass/Vol] 11.2 g/dL 12.0-15.0 [facility] Monocytes/100 WBC (Bld) 7.8 % 0-10 [facility] Neutrophils (Bld) [#/Vol] 13.5 10*3/uL 2.0-7.7 [facility] Neutrophils/100 WBC (Bld) 68.4 % 47-70 [facility] Potassium [Moles/Vol] 3.4 mmol/L 3.5-5.1 [facility] Sodium [Moles/Vol] 139 mmol/L 136-145 [facility] WBC (Bld) [#/Vol] 19.8 10*3/uL 4.4-11.0 [facility] Blood manual differential co mment interpretation (narrative result)Ordered By: Rony Burgess on 12-13-2023 Manual differential comment Hakan (Bld) [Interp] SEE COMMENT [facility] Comment on above: MONOCYTOSIS NOTED Blood platelet adequacy dete ction by light microscopyOrdered By: Rony Burgess on 12-13-2023 Platelets LM Ql (Bld) ADEQUATE ADEQ [facility] Determination of erythrocyte mean corpuscular volume (MCV)Ordered By: Royn Burgess on 12-13-2023 MCV (RBC) [Entitic vol] 90.3 fL 81-99 [facility] Erythrocyte distribution wid th ratioOrdered By: Rony Burgess on 12-13-2023 Erythrocyte distribution width (RBC) [Ratio] 13.2 % 11.6-14.6 [facility] Erythrocyte distribution wid th standard deviationOrdered By: Rony Burgess on 12-13-2023 Erythrocyte distribution width (RBC) [Entitic vol] 43.5 fL 35.1-43.9 [facility] Hematocrit Auto (Bld) [Volum e fraction]Ordered By: Rony Burgess on 12-13-2023 Hematocrit (Bld) [Volume fraction] 34.3 % 37-47 [facility] Immature granulocytes/100 WB C Auto (Bld)Ordered By: Rony Burgess on 12-13-2023 Immature granulocytes/100 WBC (Bld) 2.100 % 0.0-0.9 [facility] Comment on above: IG% - Immature Granu locytes (promyelocytes, myelocytes and metamyelocytes) > 1% indicates that a LEFT SHIFT is Present. Laboratory - Chemistry and C hemistry - challengeOrdered By: Rony Burgess on 12-13-2023 CO2 [Moles/Vol] 23.0 mmol/L 21.0-32.0 [facility] Urea nitrogen/Creatinine [Mass ratio] 19.5 mg/mg 10-20 [facility] Laboratory - Hematology and Cell countsOrdered By: Rony Burgess on 12-13-2023 Anisocytosis Ql (Bld) [facility] MCH (RBC) [Entitic mass] 29.5 pg 27.0-32.0 [facility] MCHC (RBC) [Mass/Vol] 32.7 g/dL 32-36 [facility] Nucleated RBC/100 WBC (Bld) [Ratio] 0 % 0-5 [facility] Platelet mean volume (Bld) [Entitic vol] 9.8 fL 6.2-12.0 [facility] Platelets (Bld) [#/Vol] 311 10*3/uL 150-450 [facility] Macrocytes detectionOrdered By: Rony Burgess on 12-13-2023 Macrocytes Ql (Bld) [facility] No Panel InformationOrdered By: Rony Burgess on 12-13-2023 Estimated Creatinine Clearance Calc 165.14 ml/min [facility] Estimated GFR (MDRD) Amer 203 mL/min >60 [facility] Comment on above: GFR Calc Estimated GFR (MDRD) Non-Af Amer 167 mL/min >60 [facility] Comment on above: Non- GFR Calc RBC Auto (Bld) [#/Vol]Ordere d By: Rony Burgess on 12-13-2023 RBC (Bld) [#/Vol] 3.80 10*6/uL 4.2-5.4 [facility] RBC morphologyOrdered By: Ary Burgess on 12-13-2023 RBC morphology finding Nom (Bld) N CHROM NORMAL NORM C&C [facility] Review by pathologistOrdered By: Rony Burgess on 12-13-2023 Pathologist review Hakan (Unsp spec) [Interp] Sherin worley [facility] Pathologist review Hakan (Unsp spec) [Interp] Reviewed [facility] Comment on above: Previous reported re sult: Sherin worley Edited by: RGOOD on 12/16/23:0759Leukocytosis.Clinical correlation necessary.Harrison Chavis M.D. 12/16/23 AMENDED REPORT 12/16/23 0759 PATH REV previously reported as: May foll Serum or plasma calcium talya urement (mass/volume)Ordered By: Rony Burgess on 12-13-2023 Calcium [Mass/Vol] 9.0 mg/dL 8.5-10.1 [facility] Serum or plasma creatinine m easurement (mass/volume)Ordered By: Rony Burgess on 12-13-2023 Creatinine [Mass/Vol] 0.46 mg/dL 0.55-1.02 [facility] Comment on above: The validity of the calculated GFR & GFRAA in patients over 70 years has not been determined. Clinical correlation is essential. Serum or plasma urea nitroge n measurement (mass/volume)Ordered By: Rony Burgess on 12-13-2023 Urea nitrogen [Mass/Vol] 9 mg/dL 7-18 [facility] Thin prep Papanicolaou smear with manual screeningOrdered By: Rony Burgess on 12-13-2023 Thin prep Papanicolaou smear with manual screening 6 5-15 [facility] Examination level ultrasound on 12-10-2023 [facility] URINE OB DIP B/Oon 4 Glucose Ql (U) Negative Neg mg/dL [facility] Protein.monoclonal (U) [Mass/Vol] trace Neg mg/dL [facility] URINE OB DIP B/Oon 4 Glucose Ql (U) Negative Neg mg/dL [facility] Protein.monoclonal (U) [Mass/Vol] Negative Neg mg/dL [facility] ALPHA FETOPRO MATERNALon AFP, MATERNAL 1.71 MoM [facility] Date of Collection #1 09/03/23 [facility] Date Received 09/04/23 [facility] CHAYITO 02/11/24 [facility] Gestation at Date of Sample 17 weeks 0 days (by dates) [facility] Insulin dependent diabetes None [facility] IVF No [facility] [facility] LMP 05/07/23 [facility] Maternal AFP Comment See comments below [facility] Maternal Age at [place] 33 years [facility] Patient's Weight 160 lb. [facility] Interpretation Negative Screen Negat krish [facility] Previous NTD None [facility] Risk of NTD ;1:1900 [facility] Sample #1 [id number] [facility] Staff Review Reviewed by Bartolo Wahl MD, Ph.D ([id number]) [facility] URINE OB DIP B/Oon Glucose Ql (U) Negative Neg mg/dL [facility] Protein.monoclonal (U) [Mass/Vol] Negative Neg mg/dL [facility] Basophil percentageOrdered B y: Trent Frausto on 08-07-2023 Basophil percentage 0 SEEN /hpf 0-5 [facility] Bilirubin Test strip Ql (U)O rdered By: Trent Frausto on 08-07-2023 Bilirubin Ql (U) Negative Negative [facility] Influenza virus A and B and SARS-CoV-2 (COVID-19) Ag panel - Upper respiratory specimOrdered By: Trent Frausto on 08-07-2023 SARS-CoV-2 (COVID-19) RNA FARRAH+probe Ql (Resp) [facility] Ketones Test strip Ql (U)Ord ered By: Trent Frausto on 08-07-2023 Ketones Ql (U) Negative Negative [facility] Mucus LM Ql (Urine sed)Order ed By: Trent Frausto on 08-07-2023 Mucus Ql (Urine sed) 0 SEEN /hpf [facility] Nitrite Test strip Ql (U)Ord ered By: Trent Frausto on 08-07-2023 Nitrite Ql (U) Negative Negative [facility] Protein Test strip Ql (U)Ord ered By: Trent Frausto on 08-07-2023 Protein Ql (U) Negative Negative [facility] Squamous epithelial cells de tection in urine sediment by light microscopyOrdered By: Trent Frausto on 08-07-2023 Epithelial cells.squamous LM Ql (Urine sed) 0 SEEN /hpf 5-10 [facility] Urine blood detectionOrdered By: Trent Frausto on 08-07-2023 RBC Ql (U) Negative Negative [facility] RBC Ql (U) 0 SEEN /hpf 0-5 [facility] Urine clarityOrdered By: Luis Frausto on 08-07-2023 Clarity (U) Clear Clear [facility] Urine color determinationOrd ered By: Trent Frausto on 08-07-2023 Color (U) Yellow Yellow [facility] Urine glucose detectionOrder ed By: Trent Frausto on 08-07-2023 Glucose Ql (U) Normal mg/dl Normal [facility] Urine leukocyte esterase det ection by dipstickOrdered By: Trent Frausto on 08-07-2023 Leukocyte esterase Test strip Ql (U) Negative Negative [facility] Urine pHOrdered By: Trent durand on 08-07-2023 pH (U) 7.0 [pH] 5.0 - 8.0 [facility] Urine sediment bacteria coun t by microscopy (number/high power field)Ordered By: Trent Frausto on 08-07-2023 Bacteria LM.HPF (Urine sed) [#/Area] 0 /[HPF] None Seen [facility] Urine specific gravity measu rementOrdered By: Trent Frausto on 08-07-2023 Specific gravity (U) [Rel density] 1.010 1.002-1.030 [facility] Urobilinogen Auto test strip Ql (U)Ordered By: Trent Frausto on 08-07-2023 Urobilinogen Ql (U) Normal mg/dl Normal [facility] URINE OB DIP B/Oon Glucose Ql (U) Negative Neg mg/dL [facility] Protein.monoclonal (U) [Mass/Vol] Negative Neg mg/dL [facility] PAP TESTon 07-18-2023 Case Report Gynecologic Cytology Report Case: [id number] Authorizing Provider: Shu Reeves APRN.CNM Collected: 07/11/2023 04:22 PM Ordering Location: OB/Gynecology Received: 07/11/2023 04:45 PM First Screen: Michael Berkowitz CT, ASCP Pathologist: Amirah Reno MD Specimen: Pap Test, ThinPrep, Cervix [facility] Clinical History (Indicate Weeks) [facility] Diagnosis Comment Suggest colposcopy/biopsy as clinically indicated. Results from the ASCUS/LSIL triage study found that interpretations of ASC-H were associated with a higher risk of underlying HSIL (SOHAN 2 or worse; 30-40%). [facility] General Categorization Epithelial Cell Abnormality [facility] HPV Reflex Yes HPV [facility] Interpretation Atypical squamous cells cannot exclude high grade squamous intraepithelial lesion (ASC-H); see comment. [facility]normal [facility] LMP 05/07/2023 [facility] Pap Disclaimer The Pap Smear is a screening test for cervical cancer. False negative results occur with all screening tests, emphasizing the need for rescreening at recommended intervals, and clinical correlation. [facility] PAP Spray Gun Repairer Helper Comment This specimen has been analyzed by the ThinPrep Imaging System, an automated imaging and review system, which assists the laboratory in evaluating cells on ThinPrep Pap tests. Following automated imaging, selected salas from every slide are reviewed by a zipper trimmer. [facility] Performing Lab Technical component, zipper trimmer screening performed at [facility], [address] [place] [address] CLIA# [id number] Diagnostic interpretation performed at [facility], [address] [place] [address] CLIA# [id number] Recreation Clerk: Amirah Reno M.D. [facility] Specimen Adequacy Satisfactory for interpretation [facility] CBC panel Auto (Bld)on 07-15 Erythrocyte distribution width (RBC) [Ratio] 13.1 % 11.5 - 15.0 % [facility] Hematocrit (Bld) [Volume fraction] 37.3 % 36.0 - 46.0 % [facility] Hemoglobin (Bld) [Mass/Vol] 12.8 g/dL 11.5 - 15.5 g/dL [facility] MCH (RBC) [Entitic mass] 30.8 pg 26.0 - 34.0 pg [facility] MCHC (RBC) [Mass/Vol] 34.3 g/dL 30.5 - 36.0 g/dL [facility] MCV (RBC) [Entitic vol] 89.7 fL 80.0 - 100.0 fL [facility] Nucleated RBC (Bld) [#/Vol] <0.01 k/uL [facility] Platelet mean volume (Bld) [Entitic vol] 10.3 fL 9.0 - 12.7 fL [facility] Platelets (Bld) [#/Vol] 286 10*3/uL 150 - 400 k /uL [facility] RBC (Bld) [#/Vol] 4.16 10*6/uL 3.90 - 5.2 0 m/uL [facility] WBC (Bld) [#/Vol] 13.28 10*3/uL High 3.70 - 11 .00 k/uL [facility] HEP B SURF AG SCRNon 023 HBV surface Ag Ql (S) Negative Negative [facility] HEPATITIS C ANTIBODY IA WITH CONFIRMATIONon 07-15-2023 HCV Ab Ql (S) Negative Negative [facility] HIV 1+2 Ab IA Qlon 3 HIV 1 and 2 Ab IA.rapid Nom [facility] HIV 1+2 Ab+HIV1 p24 Ag IA Ql Non-Reactive Nonreactive [facility] HIV immunoassay testing algorithm interpretation (S/P/Bld) [Interp] [facility] HPV W/GENOTYPE THIN PREPon 1 HPV 16 Ag Ql (Unsp spec) Negative Negative for HPV DNA high risk type 16 by PCR [facility] HPV 18 Ag Ql (Unsp spec) Negative Negative for HPV DNA high risk type 18 by PCR [facility] HPV 31+33+35+39+45+51+52+56 +58+59+66+68 DNA FARRAH+probe Ql (Cvx) Negative for HPV DNA high risk types: 31,33,35,39,45,51,5 2,56,58,59,66,68 by PCR. Negative for HPV DNA high risk types: 31,33,35,39,45, 51,52,56,58,59, 66,68 by PCR. [facility] HbA1c (Bld)on 07-15-2023 Average glucose Estimated from glycated hemoglobin (Bld) [Mass/Vol] 97 mg/dL [facility] HbA1c (Bld) [Mass fraction] 5.0 % 4.3 - 5.6 % [facility] RUBELLA IGG ABon 07-15-2023 Rubella IgG, Qual Negative Abnormal Positive [facility] Reagin and Treponema pallidu m IgG and IgM [Interp]on 07-15-2023 T. pallidum IgG+IgM IA Ql (S) Non-Reactive Nonreactive [facility] SYPHILIS TOTAL W/REFLEXon Reagin and Treponema pallidum IgG and IgM [Interp] Cannot exclude recent Treponemal infection if specimen collected within 7-10 days after appearance of suspect lesions or 2-3 weeks after an exposure. Clinical correlation is required. [facility] TYPE + SCREEN PRENATALon ABO group Nom (Bld) A [facility] Blood group antibody screen Ql Negative [facility] HIstorical Ab Scr Status Negative [facility] Rh Nom (Bld) Positive [facility] Type and Screen Expiration 07/17/2023 23:59 [facility] URINE CULTUREon 07-13-2023 Bacteria identified Cx Nom (U) 10,000 -<50,000 CFU/ml Mixed microbiota Abnormal [facility] BACTERIAL VAGINOSIS NAATon 1 Lactobacillus crispatus+gasseri+jense kamari + Gardnerella vaginalis + Atopobium vaginae rRNA FARRAH+probe Ql (Vag fld) Negative Negative for bacterial vaginosis [facility] C. trachomatis+N. gonorrhoea e DNA FARRAH+probe Ql (Unsp spec)on 07-12-2023 C. trachomatis rRNA FARRAH+probe Ql (Unsp spec) Negative Negative for Chlamydia trachomatis by amplificaton [facility] N. gonorrhoeae rRNA FARRAH+probe Ql (Unsp spec) Negative Negative for Neisseria gonorrhoeae by amplification [facility] BOGDAN/TRICHOMONAS NAATon 1 C. glabrata RNA FARRAH+probe Ql (Vag fld) Negative Negative for Bodgan glabrata [facility] Bogdan sp DNA FARRAH+probe Ql (Vag fld) Negative Negative for Bogdan species [facility] T. vaginalis DNA FARRAH+probe Ql (Unsp spec) Negative Negative for Trichomonas vaginalis by amplification [facility] No Panel Informationon 07-11 [facility] HCG QUAL UR B/Oon 06-06-2023 status Positive neg - pos [facility] Quality Check Yes [facility] US BREAST LTD LEFTon 023 [facility] UA DIP, URINE (POC)on 2022 BILIRUBIN UA (POCT) Negative Negative [facility] CLARITY UA (POCT) Clear [facility] COLOR UA (POCT) Yellow [facility] GLUCOSE UA (POCT) Negative Negative mg/dL [facility] Hemoglobin Ql (U) Negative Negative [facility] KETONE UA (POCT) Negative Negative mg/dL [facility] LEUKOCYTES UA (POCT) Negative Negative [facility] NITRITE UA (POCT) Negative Negative [facility] PH UA (POCT) 7.0 4.5 - 8.0 [facility] Protein Ql (U) Negative Negative mg/dL [facility] SPECIFIC GRAVITY UA (POCT) 1.010 1.005 - 1.030 [facility] UROBILINOGEN UA (POCT) 0.2 E.U./dL Normal E.U./ dL [facility] CBC W Auto Differential pane l (Bld)on 05-13-2023 Basophils (Bld) [#/Vol] 0.11 10*3/uL High <0.11 k/uL [facility] Basophils/100 WBC (Bld) 1.0 % C [facility] Differential cell count method Nom (Bld) Auto [facility] Eosinophils (Bld) [#/Vol] 0.25 10*3/uL <0.46 k/uL [facility] Eosinophils/100 WBC (Bld) 2.3 % [facility] Erythrocyte distribution width (RBC) [Ratio] 12.1 % 11.5 - 15.0 % [facility] Hematocrit (Bld) [Volume fraction] 40.4 % 36.0 - 46.0 % [facility] Hemoglobin (Bld) [Mass/Vol] 13.3 g/dL 11.5 - 15.5 g/dL [facility] Immature granulocytes (Bld) [#/Vol] 0.04 10*3/uL <0.10 k/uL [facility] Immature granulocytes/100 WBC (Bld) 0.4 % [facility] Lymphocytes (Bld) [#/Vol] 3.03 10*3/uL 1.00 - 4.00 k/uL [facility] Lymphocytes/100 WBC (Bld) 27.8 % [facility] MCH (RBC) [Entitic mass] 29.8 pg 26.0 - 34.0 pg [facility] MCHC (RBC) [Mass/Vol] 32.9 g/dL 30.5 - 36.0 g/dL [facility] MCV (RBC) [Entitic vol] 90.6 fL 80.0 - 100.0 fL [facility] Monocytes (Bld) [#/Vol] 0.72 10*3/uL <0.87 k/uL [facility] Monocytes/100 WBC (Bld) 6.6 % C [facility] Neutrophils (Bld) [#/Vol] 6.74 10*3/uL 1.45 - 7.50 k/uL [facility] Neutrophils/100 WBC (Bld) 61.9 % [facility] Nucleated RBC (Bld) [#/Vol] <0.01 k/uL [facility] Nucleated RBC/100 WBC (Bld) [Ratio] 0.0 /100 WBC [facility] Platelet mean volume (Bld) [Entitic vol] 10.0 fL 9.0 - 12.7 fL [facility] Platelets (Bld) [#/Vol] 366 10*3/uL 150 - 400 k /uL [facility] RBC (Bld) [#/Vol] 4.46 10*6/uL 3.90 - 5.2 0 m/uL [facility] WBC (Bld) [#/Vol] 10.89 10*3/uL 3.70 - 11 .00 k/uL [facility] Laboratory - Chemistry and C hemistry - challengeOrdered By: Hai Chavira on 01-22-2023 Lipase [Catalytic activity/Vol] 21 U/L 13-75 [facility] Comment on above: Please note:LIPASE r [...] quadrant. Normal sonographic appearance of the spleen. Junior Accountant Bookkeeper: AGUSTINA Transcribe Date/Time: Jan 22 2023 5:00P Dictated by : JOE NICHOLS MD This examination was interpreted and the report reviewed and electronically signed by: JOE NICHOLS MD on Jan 22 2023 5:03PM EST [id number] Normal [facility] US ABD SPLEEN -NBon 01-23-20 US ABD [...] quadrant. Normal sonographic appearance of the spleen. Junior Accountant Bookkeeper: [facility] Transcribe Date/Time: Jan 22 2023 5:00P Dictated by : JOE NICHOLS MD This examination was interpreted and the report reviewed and electronically signed by: JEO NICHOLS MD on Jan 22 2023 5:03PM EST [id number] Normal [facility] HCG QUAL UR B/Oon 11-01-2022 status Negative neg - pos [facility] Quality Check Yes [facility] LABORATORYOrdered By: César Torres on 05-09-2022 [...] 0 01-11-2022 CRP [Mass/Vol] mg/L <0.9 mg/dL [facility] XR Ankle - left AP and Later al and obliqueon 12-01-2020 IMPRESSION: No radiographic evidence of osseous injury. Junior Accountant Bookkeeper: [facility] Transcribe Date/Time: Dec 01 2020 4:36P Dictated by : BEATA HOLLOWAY MD This examination was interpreted and the report reviewed and electronically signed by: BEATA HOLLOWAY MD on Dec 01 2020 4:37PM EST DIVISION OF RADIOLOGY * * *Final [...] Plantar calcaneal enthesophyte. DIVISION OF RADIOLOGY Provider, [facility] [place] - 12/01/2020 * * *Final Report* * [...] IMPRESSION: No radiographic evidence of osseous injury. Junior Accountant Bookkeeper: [facility] Transcribe Date/Time: Dec 01 2020 4:36P Dictated by : BEATA HOLLOWAY MD This examination was interpreted and the report reviewed and electronically signed by: BEATA HOLLOWAY MD on Dec 01 2020 4:37PM EST [facility] Radiology Study observation (narrative) [facility] XR Ankle - left AP and Later al and obliqueOrdered By: Ccf Provider on 12-01-2020 [facility] Vital Signs Date Time Vital Sign Value Performing Clinician Facility 06-07-2025 13:16-0400 Body mass index (BMI) [Ratio] 32.65 kg/m2 Kishor Hernandez MD Work Phone: [facility] 06-07-2025 13:16-0400 Body weight 75.84 kg Kishor Hernandez MD Work Phone: [facility] 06-07-2025 13:16-0400 Diastolic blood pressure 58 mm[Hg] Kishor Hernandez MD Work Phone: [facility] 06-07-2025 13:16-0400 Heart rate 84 /min Kishor Hernandez MD Work Phone: [facility] 06-07-2025 13:16-0400 Respiratory rate 16 /min Kishor Hernandez MD Work Phone: [facility] 06-07-2025 13:16-0400 Systolic blood pressure 109 mm[Hg] Kishor Hernandez MD Work Phone: [facility] 04-27-2025 09:08-0400 Body mass index (BMI) [Ratio] 32.85 kg/m2 Kishor Hernandez MD Work Phone: [facility] 04-27-2025 09:08-0400 Body weight 76.3 kg Kishor Hernandez MD Work Phone: [facility] 04-27-2025 09:08-0400 Diastolic blood pressure 72 mm[Hg] Kishor Hernandez MD Work Phone: [facility] 04-27-2025 09:08-0400 Heart rate 64 /min Kishor Hernandez MD Work Phone: [facility] 04-27-2025 09:08-0400 Respiratory rate 16 /min Kishor Hernandez MD Work Phone: [facility] 04-27-2025 09:08-0400 Systolic blood pressure 105 mm[Hg] Kishor Hernandez MD Work Phone: [facility] 04-20-2025 15:07-0400 Body mass index (BMI) [Ratio] 32.81 kg/m2 Manuela Waddell MD Work Phone: [facility] 04-20-2025 15:07-0400 Body weight 76.2 kg Manuela Waddell MD Work Phone: 4(251)203-526368 [place] [address] 04-20-2025 15:07-0400 Diastolic blood pressure 64 mm[Hg] Manuela Waddell MD Work Phone: 3(388)291-142668 [place] [address] 04-20-2025 15:07-0400 Systolic blood pressure 102 mm[Hg] Manuela Waddell MD Work Phone: 1(943)321-871179 [place] [address] 04-14-2025 21:28-0400 Body temperature 98 [degF] Dr. Kishor Hernandez MD Work Phone: 9(458)242-600414 [place] [address] 04-14-2025 21:28-0400 Diastolic blood pressure 69 mm[Hg] Dr. Kishor Hernandez MD Work Phone: 8(228)951-442214 [place] [address] 04-14-2025 21:28-0400 Heart rate 83 /min Dr. Kishor Hernandez MD Work Phone: 9(962)205-970514 [place] [address] 04-14-2025 21:28-0400 Respiratory rate 14 /min Dr. Kishor Hernandez MD Work Phone: 2(643)414-873014 [place] [address] 04-14-2025 21:28-0400 SaO2% (BldA) [Mass fraction] 99 % Dr. Kishor Hernandez MD Work Phone: 8(119)171-799614 [place] [address] 04-14-2025 21:28-0400 Systolic blood pressure 100 mm[Hg] Dr. Kishor Hernandez MD Work Phone: 5(966)148-627214 [place] [address] 04-14-2025 17:38-0400 Body height 152.[address] Kishor Hernandez MD Work Phone: 9(212)645-642614 [place] [address] 04-14-2025 17:38-0400 Body mass index (BMI) [Ratio] 33.4 kg/m2 Dr. Kishor Hernandez MD Work Phone: 4(198)747-472414 [place] [address] 04-14-2025 17:38-0400 Body weight 77.[address] Kishor Hernandez MD Work Phone: 9(393)642-648714 [place] [address] 03-25-2025 01:39-0400 Body temperature 97.6 [degF] Dr. Kishor Hernandez MD Work Phone: 7(759)520-103714 [place] [address] 03-25-2025 01:39-0400 Diastolic blood pressure 54 mm[Hg] Dr. Kishor Hernandez MD Work Phone: 8(467)618-092914 [place] [address] 03-25-2025 01:39-0400 Heart rate 75 /min Dr. Kishor Hernandez MD Work Phone: 9(535)693-420614 [place] [address] 03-25-2025 01:39-0400 Respiratory rate 16 /min Dr. Kishor Hernandez MD Work Phone: 9(383)047-012414 [place] [address] 03-25-2025 01:39-0400 SaO2% (BldA) [Mass fraction] 94 % Dr. Kishor Hernandez MD Work Phone: 7(410)109-934214 [place] [address] 03-25-2025 01:39-0400 Systolic blood pressure 99 mm[Hg] Dr. Ksihor Hernandez MD Work Phone: 9(067)471-382114 [place] [address] 03-24-2025 22:14-0400 Body height 152.[address] Kishor Hernandez MD Work Phone: 1(539)998-837714 [place] [address] 03-24-2025 22:14-0400 Body mass index (BMI) [Ratio] 34.9 kg/m2 Dr. Kishor Hernandez MD Work Phone: 9(076)444-154914 [place] [address] 03-24-2025 22:14-0400 Body weight 81.[address] Kishor Hernandez MD Work Phone: 9(883)062-282314 [place] [address] 12-06-2024 22:10-0500 Body temperature 98.7 [degF] Dr. Kishor Hernandez MD Work Phone: 5(861)509-311214 [place] [address] 12-06-2024 22:10-0500 Diastolic blood pressure 73 mm[Hg] Dr. Kishor Hernandez MD Work Phone: 0(411)756-401514 [place] [address] 12-06-2024 22:10-0500 Heart rate 76 /min Dr. Kishor Hernandez MD Work Phone: 3(968)044-107814 [place] [address] 12-06-2024 22:10-0500 Respiratory rate 18 /min Dr. Kishor Hernandez MD Work Phone: [facility] 12-06-2024 22:10-0500 SaO2% (BldA) [Mass fraction] 100 % Dr. Kishor Hernandez MD Work Phone: [facility] 12-06-2024 22:10-0500 Systolic blood pressure 128 mm[Hg] Dr. Kishor Hernandez MD Work Phone: [facility] 10-27-2024 12:01-0500 Body mass index (BMI) [Ratio] 36.17 kg/m2 Amirah Clutter PA-C Work Phone: [facility] 10-27-2024 12:01-0500 Body temperature 98.49 [degF] Amirah Clutter PA-C Work Phone: [facility] 10-27-2024 12:01-0500 Body weight 84 kg Amirah Clutter PA-C Work Phone: [facility] 10-27-2024 12:01-0500 Diastolic blood pressure 66 mm[Hg] Amirah Clutter PA-C Work Phone: [facility] 10-27-2024 12:01-0500 Heart rate 104 /min Amirah Clutter PA-C Work Phone: [facility] 10-27-2024 12:01-0500 Respiratory rate 20 /min Amirah Clutter PA-C Work Phone: [facility] 10-27-2024 12:01-0500 SaO2% (BldA) [Mass fraction] 98 % Amirah Clutter PA-C Work Phone: [facility] 10-27-2024 12:01-0500 Systolic blood pressure 114 mm[Hg] Amirah Clutter PA-C Work Phone: [facility] 10-13-2024 11:43-0500 Body mass index (BMI) [Ratio] 37.24 kg/m2 Abel Thornton APRN.CNP Work Phone: [facility] 10-13-2024 11:43-0500 Body temperature 97.81 [degF] Abel Thornton APRN.[employer] Work Phone: [facility] 10-13-2024 11:43-0500 Body weight 86.5 kg Abel Thornton APRN.[employer] Work Phone: [facility] 10-13-2024 11:43-0500 Diastolic blood pressure 68 mm[Hg] Abel Thornton APRN.[employer] Work Phone: [facility] 10-13-2024 11:43-0500 Heart rate 88 /min Abel Thornton APRN.[employer] Work Phone: [facility] 10-13-2024 11:43-0500 Respiratory rate 16 /min Abel Thornton APRN.[employer] Work Phone: [facility] 10-13-2024 11:43-0500 SaO2% (BldA) [Mass fraction] 98 % Abel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 Work Phone: [facility] [place] Comment on above: Refill Request Start: 04-07-2025 End: 04-07-[address] Kishor Hernandez MD Work Phone: -Ultrasound [facility] Start: 04-07-2025 End: 04-07-2025 Patient encounter procedure Flip Hatfield DO -Ultrasound [facility] Work Phone: Start: 04-07-2025 End: 04-07-2025 ambulatory Kishor Hernandez Facility:[facility] Start: 03-24-2025 End: 03-25-2025 Emergency department patient visit Dr. Kishor Hernandez MD Work Phone: -Emergency Department Work Phone: Start: 03-18-2025 End: 03-21-2025 Telephone encounter Kishor Hernandez MD Work Phone: Internal [facility] [place] Comment on above: Patient Question Start: 02-04-2025 End: 04-06-2025 Follow-up encounter Radh[facility] Ricardo [facility]-C [facility] Start: 02-04-2025 ambulatory Jose Delgado Facility:[facility] Start: 02-04-2025 End: 02-04-2025 Subsequent hospital visit by physician [facility] Work Phone: Nuclear Medicine Comment on above: Dyspepsia [R10.13] Start: 01-24-2025 End: 01-24-2025 Telemedicine consultation with patient Jose Delgado APRN.[employer] Work Phone: [facility] [place] Start: 01-24-2025 End: 01-24-2025 ambulatory Jose Delgado APRN.[employer] [facility] Comment on above: Gastroesophageal ref lux disease with esophagitis without hemorrhage (Primary Dx); Early satiety; Dyspepsia; Hiatal hernia; Globus pharyngeus Start: 12-06-2024 End: 12-06-2024 Emergency department patient visit Dr. Raul Light MD -Emergency Department Work Phone: Start: 12-02-2024 End: 12-02-2024 ambulatory Omayra Garcia RN NURSE [employer]INE OPERATOR Comment on above: Question Start: 11-30-2024 End: 11-30-2024 Refill Jose Delgado APRN.[employer] Work Phone: Ambulatory Surgery Comment on above: Medication Problem; Refill Request Start: 11-04-2024 End: 11-05-2024 Refill Darya Quiñones APRN.[employer] Work Phone: Internal Medicine [place] Comment on above: Refill Request Start: 10-27-2024 End: 10-27-2024 ambulatory [facility] Facility:[facility] Start: 10-27-2024 End: 10-27-2024 Office outpatient visit 25 minutes Amirah Rivera PA-C Work Phone: [place] [facility] Comment on above: Viral illness (Prima ry Dx) Start: 10-19-2024 End: 10-19-2024 Emergency department patient visit [facility] Facility:[facility] Start: 10-13-2024 End: 10-13-2024 ambulatory [facility] Facility:[facility] Start: 10-13-2024 End: 10-13-2024 Patient encounter procedure Abel Thornton APRN.[employer] Work Phone: [place] [facility] Comment on above: Pain (Primary Dx) Start: 10-13-2024 End: 10-13-2024 Subsequent hospital visit by physician [facility] Work Phone: Radiology Comment on above: Pain [R52] Start: 10-07-2024 End: 10-07-2024 Refill Reanna Bronson PA-C Work Phone: [facility] Comment on above: Refill Request Start: 09-27-2024 End: 09-27-2024 ambulatory [facility] Provider Ronnie diehl Comment on above: New medication Start: 09-23-2024 End: 09-23-2024 ambulatory Jose alice Facility:[facility] Start: 09-23-2024 End: 09-23-2024 Office outpatient visit 15 minutes Jose Delgado SENIOR PHYSICIAN.[employer] Work Phone: [facility] Comment on above: Gastroesophageal ref lux disease with esophagitis without hemorrhage (Primary Dx); Hiatal hernia Start: 09-13-2024 End: 09-13-2024 Refill Jose Delgado SENIOR PHYSICIAN.[employer] Work Phone: [facility] Comment on above: Refill Request Start: 08-24-2024 End: 08-24-2024 Refill Jose Delgado SENIOR PHYSICIAN.[employer] Work Phone: [facility] [place] Comment on above: Refill Request Start: 08-03-2024 End: 08-03-2024 ambulatory EDGARDO RAMIREZ Facility:[facility] Start: 08-03-2024 End: 08-03-2024 Subsequent hospital visit by physician Edgardo Ramirez MD Work Phone: Ambulatory Surgery Comment on above: Gastroesophageal ref lux disease, unspecified whether esophagitis present [K21.9] Start: 07-29-2024 End: 07-29-2024 ambulatory Jose Delgado Facility:[facility] Start: 07-29-2024 End: 07-29-2024 Office outpatient new 30 minutes Jose Delgado SENIOR PHYSICIAN.[employer] Work Phone: [facility] [place] Comment on above: Gastroesophageal ref lux disease, unspecified whether esophagitis present; Upper abdominal pain Start: 06-15-2024 End: 06-15-2024 Periodic preventive med est patient 18-39 yrs Kishor Hernandez MD Work Phone: Internal Medicine [place] Comment on above: Annual physical exam (Primary Dx) Start: 06-15-2024 End: 06-15-2024 ambulatory KISHOR HERNANDEZ Facility:[facility] Start: 06-15-2024 End: 06-15-2024 Patient encounter procedure Kishor Hernandez MD Work Phone: [facility] Work Phone: Start: 06-10-2024 End: 06-10-2024 ambulatory DARYA QUIÑONES Facility:[facility] Start: 06-09-2024 End: 06-09-2024 Patient encounter procedure Darya Quiñones SENIOR PHYSICIAN.[employer] Work Phone: Internal Medicine [place] Comment on above: Gastroesophageal ref lux disease, unspecified whether esophagitis present (Primary Dx); Upper abdominal pain; Sternal pain; Palpitations Start: 06-09-2024 End: 06-09-2024 [facility] DARYA QUIÑONES Facility:[facility] Start: 05-27-2024 End: 05-31-2024 Telephone encounter Darya Quiñones APRN.[employer] Work Phone: [facility] [place] Comment on above: Appeal Start: 05-19-2024 ambulatory HILLARY CHANCE MD Facil ity:B Start: 05-01-2024 End: 05-01-2024 Patient encounter procedure [employer] Work Phone: [place] [facility] Comment on above: Local reaction to be e sting, accidental or unintentional, initial encounter (Primary Dx) Start: 04-30-2024 End: 04-30-2024 Patient encounter procedure Abel Thornton APRN.[employer] Work Phone: [place] [facility] Comment on above: Itch (Primary Dx) Start: 04-28-2024 End: 04-28-2024 Patient encounter procedure Darya Quiñones APRN.[employer] Work Phone: [facility] [place] Comment on above: Sternal pain (Primar y Dx); Palpitations; Family history of early CAD; Gastroesophageal reflux disease, unspecified whether esophagitis present Start: 03-30-2024 Telephone encounter Demetra díaz MD Work Phone: OB/Gynecology Comment on above: FMLA paperwork addit ion info Start: 03-17-2024 Refill Darya Quiñones APRN .[employer] Work Phone: [facility] [place] Comment on above: Refill Request Start: 03-12-2024 End: 03-12-2024 Patient encounter procedure Demetra Kessler MD Work Phone: OB/Gynecology Comment on above: care and examination (Primary Dx); Request for sterilization Start: 02-24-2024 Admission to same day surgery center surgery center Demetra Kessler MD Work Phone: OB/Gynecology Comment on above: surgery confirmation Start: 02-24-2024 E-mail encounter fro m caregiver Demetra Kessler MD Work Phone: OB/Gynecology Start: 02-16-2024 End: 02-16-2024 Patient encounter procedure Demetra Kessler MD Work Phone: OB/Gynecology Comment on above: state (Pr imary Dx); History of gestational diabetes Start: 02-06-2024 End: 02-06-2024 Patient encounter procedure Manuela Waddell MD Work Phone: OB/Gynecology Comment on above: Retained placenta wi thout hemorrhage, condition or complication (Primary Dx); endometritis Start: 02-06-2024 ambulatory Manuela Waddell MD Work Phone: OB/Gynecology Start: 02-06-2024 End: 02-06-2024 Patient encounter procedure Sarina Montoya SENIOR PHYSICIAN.CNM Work Phone: OB/Gynecology Comment on above: Retained placenta wi thout hemorrhage, condition or complication (Primary Dx) Start: 02-03-2024 ambulatory Shu Reeves SENIOR PHYSICIAN.CNM Work Phone: OB/Gynecology Comment on above: Ob Delivery Note Start: 02-02-2024 End: 02-04-2024 Evaluation and management of inpatient [facility] Work Phone: Start: 01-30-2024 End: 01-30-2024 Patient encounter procedure [facility] [employer] [place] [facility] Work Phone: OB/Gynecology Comment on above: Encounter for ultras ound to check growth (Primary Dx); Diet controlled gestational diabetes mellitus (GDM) in third trimester; 38 weeks gestation of Supervision of high risk in third trimester (Primary Dx); Diet controlled gestational diabetes mellitus (GDM) in third trimester; 38 weeks gestation of Start: 01-28-2024 ambulatory [facility] [place] Start: 01-28-2024 Patient encounter procedure [facility] [place] Comment on above: Population Health Na vigation Outreach (OB/PEDS ) Start: 01-19-2024 End: 01-19-2024 Patient encounter procedure Demetra Kessler MD Work Phone: OB/Gynecology Comment on above: 36 weeks gestation o f (Primary Dx); Diet controlled gestational diabetes mellitus (GDM) in third trimester; Encounter for supervision of other normal in second trimester Start: 01-12-2024 End: 01-12-2024 Patient encounter procedure Demetra Kessler MD Work Phone: OB/Gynecology Comment on [...] Telemedicine consultation with patient Hayley Parr RD [facility] Start: 12-16-2023 Telephone encounter Shu gill APRN.MARINO Work Phone: OB/Gynecology Comment on above: FMLA Paperwork Start: 12-15-2023 End: 12-15-2023 Patient encounter procedure Demetra Kessler MD Work Phone: OB/Gynecology Comment on above: 31 weeks gestation o f (Primary Dx); Diet controlled gestational diabetes mellitus (GDM) in third trimester; Supervision of other high risk pregnancies, first trimester Start: 12-13-2023 End: 12-14-2023 Emergency department patient visit [facility]-Emergency Department Work Phone: Start: 12-11-2023 ambulatory Shu Reeves APRN.CNM Work Phone: OB/Gynecology Comment on above: Blood Sugar tracking . Start: 12-10-2023 End: 12-10-2023 Patient encounter procedure [employer] [place] [facility] Work Phone: OB/Gynecology Comment on above: Diet controlled gest ational diabetes mellitus (GDM) in third trimester (Primary Dx); 31 weeks gestation of Start: 12-05-2023 Refill Daly pepe PA-C Work Phone: Internal Medicine [place] Comment on above: Refill Request Start: 12-02-2023 Telephone encounter 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 RN Maternal Medicine Comment on above: 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 - O ther (PRAF) Start: 12-01-2023 End: 12-01-2023 Patient encounter procedure Shu Reeves SUSAN.CNM Work Phone: OB/Gynecology Comment on above: 29 weeks gestation o f (Primary Dx); Abnormal glucose in , antepartum; Situational depression; Supervision of other high risk pregnancies, first trimester Start: 12-01-2023 ambulatory Shu Reeves SUSAN.CNJim Work Phone: OB/Gynecology Comment on above: FMLA Start: 12-01-2023 E-mail encounter fro m caregiver Shu Leandro DAVIS.CNJim Work Phone: [place] [facility] Start: 11-24-2023 End: 11-24-[address] Nutrition Therapy Comment on above: Dietary counseling ( Primary Dx); Abnormal maternal glucose tolerance, antepartum Start: 11-24-2023 End: 11-24-2023 Telemedicine consultation with patient Hayley Parr RD [facility] Start: 11-19-2023 End: 11-19-2023 Refill Manuela Waddell MD Work Phone: OB/Gynecology Comment on above: Abnormal maternal gl ucose tolerance, antepartum Start: 11-18-2023 Telephone encounter Manuela Waddell MD Work Phone: OB/Gynecology Comment on above: Results Start: 11-17-2023 End: 11-17-2023 Patient encounter procedure Demetra Kessler MD Work Phone: OB/Gynecology Comment on above: Encounter for superv ision of other normal in second trimester (Primary Dx); 27 weeks gestation of ; Heartburn during , antepartum; Request for sterilization Start: 11-11-2023 End: 11-11-2023 Patient encounter procedure Zuleyma Castro APRN.[employer] Work Phone: [place] [facility] Comment on above: Fatigue, unspecified type (Primary Dx); Headache, unspecified headache type Start: 09-24-2023 End: 09-24-2023 Patient encounter procedure Zuleyma Castro APRN.[employer] Work Phone: [place] [facility] Comment on above: Sciatica, right side (Primary Dx) Start: 09-06-2023 Refill Liss Lio DAVIS.[employer] Work Phone: Internal Medicine [place] Comment on above: Refill Request Start: 09-03-2023 End: 09-03-2023 Patient encounter procedure Shu Reeves APRN.CNM Work Phone: OB/Gynecology Comment on above: 17 weeks gestation o f (Primary Dx); Encounter for supervision of other normal in second trimester Start: 08-07-2023 End: 08-07-2023 Emergency department patient visit [facility]-Emergency Department Work Phone: Start: 08-04-2023 End: 08-04-2023 Patient encounter procedure Demetra Kessler MD Work Phone: OB/Gynecology Comment on above: 12 weeks gestation o f (Primary Dx); Encounter for supervision of normal in multigravida in first trimester; Constipation, unspecified constipation type Start: 07-29-2023 Telephone encounter Dakota stein MD Work Phone: OB/Gynecology Comment on above: Question (OB Questio n) Start: 07-15-2023 Telephone encounter 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 RN Obstetrics/Gynecology Comment on above: 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 - O ther ( Risk Assessment Form) [...] End: 06-25-2023 Patient encounter procedure Abel Thornton APRN.[employer] Work Phone: [place] [facility] Comment on above: URI, acute (Primary Dx) Start: 06-06-2023 End: 06-06-2023 Patient encounter procedure Chandler Burton MD Work Phone: [place] [facility] Comment on above: Positive urine pregn rhea test (Primary Dx) Start: 06-04-2023 End: 06-04-2023 Subsequent hospital visit by physician [facility] Work Phone: Radiology Comment on above: Breast pain [N64.4] Start: 05-29-2023 Telephone encounter Chandler Garcia MD Work Phone: [place] [facility] Comment on above: Results (BV) Start: 05-28-2023 End: 05-28-2023 Patient encounter procedure Shu Roxann SENIOR PHYSICIAN.[employer] Work Phone: [place] [facility] Comment on above: Pelvic pain (Primary Dx) Start: 05-21-2023 Telephone encounter Liss cat SENIOR PHYSICIAN.[employer] Work Phone: Mammogram Comment on above: Orders Start: 05-13-2023 End: 05-13-2023 Patient encounter procedure Liss Vaca SENIOR PHYSICIAN.[employer] Work Phone: Internal Medicine [place] Comment on above: Breast pain (Primary Dx); Anxiety; Panic attacks; Other fatigue; Vitamin D deficiency; Encounter for therapeutic drug monitoring Start: 04-02-2023 End: 04-02-2023 Patient encounter procedure Liss Vaca SENIOR PHYSICIAN.[employer] Work Phone: Internal Medicine [place] Comment on above: Panic attack (Primar y Dx) Start: 01-22-2023 End: 01-22-2023 Patient encounter procedure Kishor Hernandez MD Work Phone: Internal Medicine [place] Comment on above: Patient left without being seen (Primary Dx) Start: 01-22-2023 ambulatory KISHOR HERNANDEZ Facility:[facility] Start: 01-22-2023 Telephone encounter Hai nye PA-C Work Phone: [place] [facility] Comment on above: Results Returning Patient's Call; Orders Start: 01-22-2023 End: 01-22-2023 ambulatory [facility] Work Phone: Start: 01-22-2023 End: 01-22-2023 Patient encounter procedure [facility]-Laboratory, Specimen Start: 11-01-2022 End: 11-01-2022 Patient encounter procedure Anthony Patterson SENIOR PHYSICIAN.[employer] Work Phone: [place] [facility] Comment on above: Irregular menses (Pr imary Dx); Chest pain, unspecified type Start: 09-18-2022 End: 09-18-2022 Patient encounter procedure Darya Quiñones APRN.[employer] Work Phone: [facility] Medicine [place] Comment on above: Anxiety and depressi on (Primary Dx); Dizziness; Numbness and tingling Start: 09-09-2022 End: 09-09-2022 Patient encounter procedure Shaun Shelton APRN.[employer] Work Phone: [place] [facility] Comment on above: URI, acute (Primary Dx) Start: 06-19-2022 End: 06-19-2022 Patient encounter procedure Kishor Hernandez MD Work Phone: [facility] [place] Comment on above: Anxiety and depressi on (Primary Dx); Attention deficit; Panic attacks Start: 06-05-2022 Refill Kishor Godinez Work Phone: Internal Medicine [place] Comment on above: Refill Request Start: 05-31-2022 Refill Kishor Godinez Work Phone: Internal Medicine [place] Comment on above: Refill Request Start: 05-09-2022 End: 05-09-2022 Emergency department patient visit LEXY ZAMUDIO DO [facility] Start: 04-21-2022 Refill Darya Quiñones APRN .[employer] Work Phone: Internal Medicine [place] Comment on above: Refill Request Start: 03-22-2022 End: 03-22-2022 [facility] Kenneth Saldaña PhD Work Phone: Pediatric Psychology [...] End: 12-01-2020 Subsequent hospital visit by physician [facility] [place] Work Phone: Radiology Comment on above: Acute left ankle sandy n [M25.572] Procedures Date Procedure Procedure Detail Performing Clinician Start: 04-14-2025 Computed tomography of abdomen and pelvis with intravenous contrast Dr. Kishor Hernandez MD Work Phone: Start: 04-14-[address] Chris Hernandez MD Work Phone: Start: 04-14-2025 Urnls dip stick/tablet reagent auto microscopy Dr. Kishor Hernandez MD Work Phone: Start: 04-07-[address] Kishor Hernandez MD Work Phone: Start: 03-25-2025 CT angiography of chest with contrast Dr. Kishor Hernandez MD Work Phone: Start: 03-24-2025 Urnls dip stick/tablet reagent auto microscopy Dr. Kishor Hernandez MD Work Phone: Start: 03-24-2025 X-ray of chest, PA and lateral views Dr. Kishor Hernandez MD Work Phone: Start: 03-24-2025 D-dimer assay, quantitative Dr. Kishor stockton MD Work Phone: Comment on above: NORMAL D-Dimer level (<0.50) indicates n o DVT or PE. Start: 03-24-[address] Chris Hernandez MD Work Phone: Start: 02-04-2025 Gastric emptying imaging study Jose Delgado APRN.[employer] Work Phone: Start: 10-27-2024 STREP A MOLECULAR (POC) Amirah Rivera PA- C Work Phone: Start: 10-13-2024 Radex foot complete minimum 3 views Abel Thornton SENIOR PHYSICIAN.[employer] Work Phone: Start: 08-03-2024 Esophagogastroduodenoscopy transoral diagnostic Jose Delgado SENIOR PHYSICIAN.[employer] Work Phone: Start: 02-16-2024 Urnls dip stick/tablet rgnt auto w/o microscopy Demetra Kessler MD Work Phone: Start: 01-30-2024 Us preg uterus after 1st trimest 10/06 gestation Gill Kim SENIOR PHYSICIAN.[employer] Work Phone: Start: 01-19-2024 URINE OB DIP B/O Demetra Kessler MD Work Phone: Start: 01-12-2024 URINE OB DIP B/O Demetra Kessler MD Work Phone: Start: 12-15-2023 URINE OB DIP B/O Demetra Kessler MD Work Phone: Start: 12-13-2023 Plain chest X-ray Start: 12-10-2023 Us preg uterus after 1st trimest 10/06 gestation Shu Reeves APRN.CNM Work Phone: Start: 12-01-2023 URINE OB DIP B/O Shu Reeves APRN.CNM Work Phone: Start: 11-17-2023 URINE OB DIP B/O Demetra Kessler MD Work Phone: Start: 09-03-2023 URINE OB DIP B/O Shu Reeves APRN.CNM Work Phone: Start: 08-07-2023 SARS-CoV-2 & FLU Antigen (Rapid) Start: 08-04-2023 URINE OB DIP B/O Demetra Kessler MD Work Phone: Start: 07-11-2023 BACTERIAL VAGINOSIS NAAT Shu Reeves APRN.CNM Work Phone: Start: 07-11-2023 Cytp cervical/vaginal req interp physician Shu Reeves APRN.CNM Work Phone: Start: 07-11-2023 [place] human papillomavirus high-risk types Shu Leandro DAVIS.CNM Work Phone: Start: 07-11-2023 [place] chlamydia trachomatis amplified probe tq Shusanjeev Reeves APRN.CNM Work Phone: Start: 07-11-2023 Us uterus limited 1/> fetuses Shusanjeev Reeves APRN.CNM Work Phone: Start: 06-06-2023 Urine test visual color cmprsn meths Chandler Burton MD Work Phone: Start: 05-28-2023 Urnls dip stick/tablet rgnt auto w/o microscopy [facility] Provider Start: 11-01-2022 Urine test visual color cmprsn karla Patterson APRN.[employer] Work Phone: Plan of Treatment Date Care Activity Detail Author Start: 07-11-2028 HPV Testing HPV Testing [facility] Start: 07-11-2028 Pap Testing Pap Testing [facility] Start: 07-11-2028 Screening for malignant neoplasm of cervix [facility] Start: 04-19-2026 Urine microalbumin profile [facility] Start: 12-09-2025 End: 12-09-2025 Patient encounter procedure 12/09/2025 2:20 PM EST Office Visit [facility] [place] [address] [place], [place] [id number] Darya Quiñones APRN.[employer] [address] [place], [place] [id number] 6 mo follow up [facility] [place] Comment on above: 6 mo follow up Start: 10-24-2025 HPV TESTING HPV TESTING [facility] Start: 10-24-2025 PAP TESTING PAP TESTING [facility] Start: 06-07-2025 End: 06-07-2025 Patient encounter procedure 06/07/2025 1:00 PM EDT Office Visit [facility] [place] [address] [place], [place] [id number] Kishor Hernandez MD [address] [place], [place] [id number] Annual Physical [facility] [place] Comment on above: Annual Physical Start: 06-06-2025 Influenza vaccination [facility] Start: 04-20-2025 End: 04-20-2025 Patient encounter procedure 04/20/2025 3:20 PM EDT Office Visit OB/Gynecology [address] [place] [address] Manuela Luz MD [address] [place] [address] Sterilization OB/Gynecology Comment on above: Sterilization Start: 04-14-2025 [facility] Start: 04-11-2025 End: 07-11-2025 CBC W Auto Differential panel - Blood COMPLETE BLOOD COUNT AND DIFFERENTIAL Lab Routine Annual physical exam Expected: 04/11/2025, Expires: 07/11/2025 [facility] [facility] Work Phone: Comment on above: Expected: 04/11/2025, Expires: Start: 04-11-2025 End: 07-11-2025 Comprehensive metabolic 2000 panel - Serum or Plasma COMPREHENSIVE METABOLIC PANEL Lab Routine Annual physical exam Expected: 04/11/2025, Expires: 07/11/2025 [facility] Comment on above: Expected: 04/11/2025, Expires: Start: 03-25-2025 CT Abdomen [facility] Start: 03-25-2025 [facility] Start: 03-25-2025 [facility] Start: 03-24-2025 [facility] Start: 02-04-2025 End: 02-04-2025 Patient encounter procedure 02/04/2025 8:00 AM EDT Appointment Nuclear Medicine [address] [place] [address] Dyspepsia [R10.13] Nuclear Medicine Comment on above: Dyspepsia [R10.13] Start: 12-23-2024 End: 12-23-2024 Patient encounter procedure 12/23/2024 1:50 PM EDT Office Visit Gastroenterology [place] [address] [place] [phone] Jose Delgado SENIOR PHYSICIAN.[employer] [address] [place], [place] [phone] 3 month follow up for gerd G[facility]enterology [place] Comment on above: 3 month follow up for gerd Start: 12-06-2024 [facility] Start: 09-23-2024 End: 09-23-2024 Patient encounter procedure 09/23/2024 8:25 AM EST Office Visit Gastroenterology [place] [address] [place] [phone] Jose Delgado, SENIOR PHYSICIAN.[employer] [address] [place], [place] [phone] follow up after EGD Gastroenterology [place] Comment on above: follow up after EGD Start: 08-03-2024 End: 08-03-2024 Patient encounter procedure 08/03/2024 1:30 PM EDT Appointment Ambulatory Surgery [address] [facility] [place] [phone] Gastroesophageal reflux disease, unspecified whether esophagitis present [K21.9] Ambulatory Surgery Comment on above: Gastroesophageal reflux disease, unspeci fied whether esophagitis present [K21.9] Start: 07-29-2024 End: 07-29-2024 Anesthesia consultation 07/29/2024 11:59 PM EDT Anesthesia Event Ambulatory Surgery [address] [place] [phone] Ximena Mejia, SENIOR PHYSICIAN.CONVERTER SUPERVISOR [address] [place], [place] [phone] Ambulatory Surgery Start: 07-29-2024 End: 07-29-2024 Patient encounter procedure 07/29/2024 3:05 PM EDT Office Visit Gastroenterology [place] [address] [facility] [place] [phone] Jose Delgado, SENIOR PHYSICIAN.[employer] [address] [facility] [place] [address] Gastroesophageal reflux disease, unspecified whether esophagitis present [K21.9]; Upper abdominal pain [R10.10] Gastroenterology Asa Comment on above: Gastroesophageal reflux disease, unspeci fied whether esophagitis present [K21.9]; Upper abdominal pain [R10.10] Start: 07-11-2024 Screening for malignant neoplasm of cervix Cervical Cancer Screening [facility] Start: 06-09-2024 End: 06-09-2024 Patient encounter procedure 06/09/2024 4:40 PM EDT Office Visit Internal Medicine [place] [address] [place], [place] [phone] Darya Quiñones APRN.[employer] [address] [place] [address] 6 week follow up Internal Medicine [place] Comment on above: 6 week follow up Start: 06-09-2024 End: 09-08-2024 Helicobacter pylori IgG Ab [Presence] in Serum or Plasma by Immunoassay H PYLORI IGG AB Lab Routine Gastroesophageal reflux disease, unspecified whether esophagitis present Upper abdominal pain Expected: 06/09/2024, Expires: 09/08/2024 [facility] Work Phone: Comment on above: Expected: 06/09/2024, Expires: Start: 06-06-2024 Covid-19 Vaccine () Covid-19 Vaccine () [facility] Start: 06-06-2024 Covid-19 Vaccine () Covid-19 Vaccine () [facility] Start: 06-06-2024 Influenza vaccination [facility] Start: 05-13-2024 COVID-19 VACCINE (#1) COVID-19 VACCINE (#1) [facility] Comment on above: Postponed from 1992 (Declined at t his time) Start: 05-07-2024 End: 05-07-2024 Patient encounter procedure 05/07/2024 2:40 PM EDT Office Visit Cardiology [address] [place] [address] Sternal pain [R07.89] Cardiology Comment on above: Sternal pain [R07.89] Start: 04-28-2024 End: 04-28-2024 Patient encounter procedure 04/28/2024 3:40 PM EDT Office Visit Internal Medicine [place] [address] [place] [address] Darya Quiñones APRN.[employer] [address] [place] [address] physical Internal Medicine [place] Comment on above: physical Start: 04-28-2024 End: 07-28-2024 CBC W Auto Differential panel - Blood [facility] Comment on above: Expected: 04/28/2024, Expires: Start: 04-28-2024 End: 07-28-2024 Comprehensive metabolic 2000 panel - Serum or Plasma [facility] Comment on above: Expected: 04/28/2024, Expires: Start: 04-28-2024 End: 07-28-2024 Magnesium [Mass/volume] in Serum or Plasma [facility] Comment on above: Expected: 04/28/2024, Expires: Start: 04-28-2024 End: 07-28-2024 Thyrotropin [Units/volume] in Serum or Plasma [facility] Comment on above: Expected: 04/28/2024, Expires: Start: 03-25-2024 End: 03-25-2024 Patient encounter procedure 03/25/2024 3:40 PM EDT Office Visit OB/Gynecology [address] [place] [address] Odalis Stapleton MD [address] [place] [address] Colposcopy OB/Gynecology Comment on above: Colposcopy Start: 03-17-2024 End: 03-17-2024 Patient encounter procedure 03/17/2024 3:20 PM EDT Office Visit OB/Gynecology [address] [place] [address] Odalis Stapleton MD [address] [place] [address] Colposcopy OB/Gynecology Comment on above: Colposcopy Start: 03-12-2024 End: 03-12-2024 Patient encounter procedure 03/12/2024 3:10 PM EDT Office Visit OB/Gynecology [address] [place] [address] Demetra Kessler MD [address] [place] [phone] Post and Pre op OB/Gynecology Comment on above: Post and Pre op Start: 02-16-2024 End: 05-17-2024 GLUC EVELYN, 2-HR NON-GEST, 75 GM, FASTING GLUC EVELYN, 2-HR NON-GEST, 75 GM, FASTING Lab Routine History of gestational diabetes state Expected: 02/16/2024, Expires: 05/17/2024 [facility] Work Phone: Comment on above: Expected: 02/16/2024, Expires: Start: 02-16-2024 End: 02-16-2024 Patient encounter procedure 02/16/2024 2:00 PM EDT Office Visit OB/Gynecology [address] [place] [address] Demetra Kessler MD [address] [place] [address] PP LEANDER del. 02/02 2wk OB/Gynecology Comment on above: PP LEANDER del. 02/02 2wk Start: 02-04-2024 Patient discharge [facility] Start: 02-03-2024 End: 02-03-2024 Patient encounter procedure 02/03/2024 11:10 AM EDT Routine Office Visit OB/Gynecology [address] [place] [phone] Dakota Thornton MD [address] [place] [address] OB OB/Gynecology Comment on above: OB Start: 02-03-2024 Documentation procedure [facility] Start: 02-03-2024 Administration of medication [facility] Start: 02-03-2024 Application of ice collar, cap or bag [facility] Start: 02-03-2024 Catheterization of vein [facility] Start: 02-03-2024 Introduction of urinary catheter [facility] Start: 02-03-2024 Measuring intake and output [facility] Start: 02-03-2024 Notification of physician [facility] Start: 02-03-2024 Procedure discontinued [facility] Start: 02-03-2024 Provision of activity privileges [facility] Start: 02-03-2024 Vital signs measurements [facility] Start: 02-03-2024 End: 02-03-2024 [facility] Start: 02-03-2024 Consultation [facility] Start: 02-02-2024 Admission procedure [facility] Start: 02-02-2024 Consultation [facility] Start: 01-30-2024 End: 01-30-2024 Patient encounter procedure OB/Gynecology Comment on above: Growth/ OB Ob Start: 12-15-2023 End: 12-14-2024 OBSTETRIC ULTRASOUND [facility] OBSTETRIC ULTRASOUND [facility] Anc Imaging Routine 31 weeks gestation of Diet controlled gestational diabetes mellitus (GDM) in third trimester Supervision of other high risk pregnancies, first trimester Expected: 12/15/2023, Expires: 12/14/2024 [facility] Work Phone: Comment on above: Expected: 12/15/2023, Expires: Start: 12-14-2023 End: 12-14-2023 [facility] Start: 12-13-2023 [facility] Start: 12-01-2023 End: 12-01-2024 OBSTETRIC ULTRASOUND WHI OBSTETRIC ULTRASOUND [facility] Anc Imaging Routine 29 weeks gestation of Expected: 12/01/2023, Expires: 12/01/2024 [facility] Work Phone: Comment on above: Expected: 12/01/2023, Expires: 5 Start: 10-24-2023 PAP TESTING PAP TESTING [facility] Start: 08-07-2023 [facility] Start: 08-04-2023 End: 11-03-2023 Chromosome 21 trisomy [Presence] in Blood or Tissue by Cytogenetics [facility] Work Phone: Comment on above: Expected: 08/04/2023, Expires: 4 Start: 07-11-2023 End: 07-11-2024 NUCHAL TRANSLUCENCY WHI NUCHAL TRANSLUCENCY [facility]I Anc Imaging Routine 9 weeks gestation of Encounter for supervision of normal in multigravida in first trimester Expected: 07/11/2023, Expires: 07/11/2024 [facility] Work Phone: Comment on above: Expected: 07/11/2023, Expires: 4 Start: 07-11-2023 End: 07-11-2024 OBSTETRIC ULTRASOUND WHI OBSTETRIC ULTRASOUND [facility] Anc Imaging Routine 9 weeks gestation of Encounter for supervision of normal in multigravida in first trimester Expected: 07/11/2023, Expires: 07/11/2024 [facility] Work Phone: Comment on above: Expected: 07/11/2023, Expires: 4 Start: 06-25-2023 End: 07-09-2023 COVID & INFLUENZA A/B & RSV NAAT, ROUTINE [facility] Work Phone: Comment on above: Expected: 06/25/2023, Expires: 3 Start: 06-06-2023 Covid-19 Vaccine () Covid-19 Vaccine () [facility] Start: 06-06-2023 Influenza vaccination [facility] Start: 05-14-2023 End: 07-14-2023 25-hydroxyvitamin D3 [Mass/volume] in Serum or Plasma VITAMIN D 25 HYDROXY Lab Routine Vitamin D deficiency Expected: 05/14/2023, Expires: 07/14/2023 [facility] Work Phone: Comment on above: Expected: 05/14/2023, Expires: 3 Start: 05-14-2023 End: 07-14-2023 Cobalamin (Vitamin B12) [Mass/volume] in Serum or Plasma VITAMIN B12 BLOOD Lab Routine Other fatigue Expected: 05/14/2023, Expires: 07/14/2023 [facility] Work Phone: Comment on above: Expected: 05/14/2023, Expires: 3 Start: 05-14-2023 End: 07-14-2023 Comprehensive metabolic 2000 panel - Serum or Plasma COMP METABOLIC PANEL Lab Routine Anxiety Panic attacks Other fatigue Encounter for therapeutic drug monitoring Expected: 05/14/2023, Expires: 07/14/2023 [facility] Work Phone: Comment on above: Expected: 05/14/2023, Expires: 3 Start: 05-14-2023 End: 07-14-2023 Thyrotropin [Units/volume] in Serum or Plasma TSH BLD Lab Routine Anxiety Panic attacks Other fatigue Expected: 05/14/2023, Expires: 07/14/2023 [facility] Work Phone: Comment on above: Expected: 05/14/2023, Expires: 3 Start: 04-04-2023 Influenza vaccination INFLUENZA (#1) [facility] Comment on above: Postponed from 06/06/2022 (Declined at t his time) Start: 06-06-2022 Influenza vaccination [facility] Start: 05-24-2022 ONE PNEUMOVAX PRIOR TO AGE 65 ONE PNEUMOVAX PRIOR TO AGE 65 [facility] Comment on above: Postponed from 2011 (Declined at t his time) Start: 01-11-2022 End: 03-13-2022 Erythrocyte sedimentation rate [facility] Work Phone: Comment on above: Expected: 01/11/2022, Expires: 2 Start: 2019 HPV Vaccine (1 - 3-dose SCDM series) HPV Vaccine (1 - 3-dose SCDM series) [facility] Start: 2011 Hepatitis B Vaccine (1 of 3 - 19+ 3-dose series) Hepatitis B Vaccine (1 of 3 - 19+ 3-dose series) [facility] Start: 1997 COVID-19 VACCINE (#1) COVID-19 VACCINE (#1) [facility] Start: 1997 COVID-19 VACCINE (1) COVID-19 VACCINE (1) [facility] Start: 1992 COVID-19 VACCINE (#1) COVID-19 VACCINE (#1) [facility] Start: 1992 HEPATITIS B (1 of 3 - 3-dose series) HEPATITIS B (1 of 3 - 3-dose series) [facility] Start: 1992 Hepatitis B Vaccine (1 of 3 - 3-dose series) Hepatitis B Vaccine (1 of 3 - 3-dose series) [facility] 25-hydroxyvitamin D3 [Mass/volume] in Serum or Plasma VITAMIN D 25 HYDROXY Lab Routine Vitamin D deficiency 05/13/2023 4:36 PM EDT [facility] Work Phone: BACTERIAL VAGINOSIS NAAT BACTERI AL VAGINOSIS NAAT Lab Routine Pelvic pain 05/28/2023 11:[address] [facility] Work Phone: BOGDAN/TRICHOMONAS NAAT BOGDAN /TRICHOMONAS NAAT Lab Routine Pelvic pain 05/28/2023 11:[address] [facility] Work Phone: Chlamydia trachomatis+Neisseria gonorrhoeae DNA [Presence] in Unspecified specimen by FARRAH with probe detection GONORRHEA/CHLAMYDIA NAAT Lab STAT Pelvic pain 05/28/2023 11:[address] [facility] Work Phone: Cobalamin (Vitamin B 12) [Mass/volume] in Serum or Plasma VITAMIN B12 BLOOD Lab Routine Other fatigue 05/13/2023 4:[address] [facility] Work Phone: Comprehensive metabo lic 2000 panel - Serum or Plasma COMP METABOLIC PANEL Lab Routine Anxiety Panic attacks Other fatigue Encounter for therapeutic drug monitoring 05/13/2023 4:[address] [facility] Work Phone: ECG COMPLETE ECG COMPLETE ECG Routine Sternal pain Palpitations Family history of early CAD Ordered: 04/28/2024 [facility] Comment on above: Ordered: 04/28/2024 End: 04-28-2025 Echocardiography [facility] Cardiology Routine Sternal pain Palpitations Family history of early CAD 1 Occurrences starting 04/28/2024 until 04/28/2025 [facility] Work Phone: Comment on above: 1 Occurrences starting 04/28/2024 until 04/28/2025 End: 07-29-2025 EGD DIAGNOSTIC EGD DIAGNOSTIC Endoscopy Routine Gastroesophageal reflux disease, unspecified whether esophagitis present Upper abdominal pain 1 Occurrences starting 07/29/2024 until 07/29/2025 [facility] Work Phone: Comment on above: 1 Occurrences starting 07/29/2024 until 07/29/2025 Influenza virus A an d B RNA and SARS-CoV-2 (COVID-19) N gene panel - Respiratory specimen by FARRAH with probe detection COVID WITH FLUA+B, ROUTINE Microbiology Routine URI, acute 09/09/2022 11:35 AM EST [facility] Work Phone: End: 06-19-2024 STEVE DIAGNOSTIC BILATERAL STEVE DIAGNOSTIC BILATERAL Radiology Routine Breast pain 1 Occurrences starting 05/21/2023 until 06/19/2024 [facility] Work Phone: Comment on above: 1 Occurrences starting 05/21/2023 until 06/19/2024 End: 06-11-2024 STEVE DIAGNOSTIC LEFT STEVE DIAGNOSTIC LEFT Radiology Routine Breast pain 1 Occurrences starting 05/13/2023 until 06/11/2024 [facility] Work Phone: Comment on above: 1 Occurrences starting 05/13/2023 until 06/11/2024 End: 02-23-2026 NM Stomach Views for gastric emptying solid phase W radionuclide PO NM GASTRIC EMPTYING SOLID Radiology Routine Dyspepsia 1 Occurrences starting 01/24/2025 until 02/23/2026 [facility] Work Phone: Comment on above: 1 Occurrences starting 01/24/2025 until 02/23/2026 OUTSIDE VENDOR CARDI AC OUTPATIENT EXTENDED RHYTHM RECORDING (WITHOUT TELEMETRY) OUTSIDE VENDOR CARDIAC OUTPATIENT EXTENDED RHYTHM RECORDING (WITHOUT TELEMETRY) Holter Routine Sternal pain Palpitations Family history of early CAD Ordered: 04/28/2024 [facility] Comment on above: Ordered: 04/28/2024 Patient Education [facility] Work Phone: Patient referral [facility] Work Phone: ROUTINE FLU A/B + RSV ROUTINE FL U A/B + RSV Lab Routine URI, acute 06/25/2023 10:05 AM EDT [facility] Work Phone: ROUTINE, GR OUP B STREP PCR ROUTINE, GROUP B STREP PCR Microbiology Routine 35 weeks gestation of 01/12/2024 8:50 AM EDT [facility] Work Phone: SARS-CoV-2 (COVID-19 ) RNA [Presence] in Respiratory specimen by FARRAH with probe detection COVID NAAT, UPPER RESPIRATORY, ROUTINE Microbiology Routine URI, acute 06/25/2023 10:05 AM EDT [facility] Work Phone: SURGICAL PATHOLOGY SURGICAL PATH OLOGY Lab Routine Retained placenta without hemorrhage, condition or complication endometritis 02/06/2024 3:59 PM EDT [facility] Work Phone: SURGICAL PATHOLOGY [facility] Work Phone: Comment on above: Release Upon Ordering for 1 Occurrences starting 08/03/2024, 1 completed Thyrotropin [Units/volume] in Serum or Plasma TSH BLD Lab Routine Anxiety Panic attacks Other fatigue 05/13/2023 4:36 PM EDT [facility] Work Phone: Troponin T.cardiac [Mass/volume] in Serum or Plasma by High sensitivity method [facility] URINE OB DIP B/O URINE OB DIP B/ O Lab Routine Diet controlled gestational diabetes mellitus (GDM) in third trimester Supervision of high risk in third trimester 38 weeks gestation of Ordered: 01/30/2024 [facility] Work Phone: Comment on above: Ordered: 01/30/2024 End: 06-11-2024 US BREAST LTD LEFT US BREAST LTD LEFT Radiology Routine Breast pain 1 Occurrences starting 05/13/2023 until 06/11/2024 [facility] Work Phone: Comment on above: 1 Occurrences starting 05/13/2023 until 06/11/2024 [facility] Immunizations Immunization Date Immunization Notes Care Provider Fa [facility] 04-19-2016 tetanus toxoid, reduced diphtheria toxoid, and acellular pertussis vaccine, adsorbed Patricia King MD Work Phone: [facility] NEGATED: Highlighted row has not occurred!12-12-2021 COVID-19 vaccine, age 12+ yr (PFIZER-BIONTECH - LUCIO TOP) Patricia King MD Work Phone: [facility] Work Phone: Comment on above: Deferred: OTHER Payers Date Payer Category Payer Self-pay [id number] 2024 Unknown [id number] 1 2022 Medicaid [id number] 2021 Government (not [facility] or Medicaid) [facility] Address: [address] [place] [address], [address] [address] [id number] 2021 Unknown [facility] COMP [id number] 2021-Present [phone] [place] [address] [facility] [id number] 2021 Unknown [facility] COMP [id number] 2021-Present [phone] [place] [address] [facility] [id number] 2014 Medicaid [place] [employer] [employer] [id number] 2014-Present [phone] [address] [place] [address] Medicaid [id number] 2014 Medicaid [id number] 1992 Unknown [id number] Unknown [id number] Unknown [id number] Unknown [id number] Unknown [id number] Unknown [id number] Unknown [id number] Social History Date Type Detail Facility Start: 08-08-2020 End: 06-15-2024 Tobacco smoking status NHIS Ex-smoker [facility] Work Phone: History of tobacco use Cigarette Smoker C [facility] Work Phone: Start: 08-08-2020 End: 03-18-2023 Cigarettes smoked current (pack per day) - Reported 0.5 [facility] Start: 08-08-2020 End: 06-15-2024 Tobacco use and exposure Smokeless tobacco non-user [facility] Work Phone: Start: 12-01-2020 End: 01-11-2022 Alcohol intake Current drinker of alcohol (finding) [facility] Start: 12-11-2021 End: 09-18-2022 History SDOH Alcohol Frequency 1 [facility] Start: 12-11-2021 End: 09-18-2022 History SDOH Alcohol Std Drinks 98 [facility] Start: 10-20-2014 History SDOH Alcohol Comment occasionally [facility] Start: 12-11-2021 End: 09-18-2022 History SDOH Social Connections Phone 2 [facility] Start: 12-11-2021 End: 09-18-2022 History SDOH Social Connections Get Together 3 [facility] Start: 12-11-2021 End: 09-18-2022 History SDOH Social Connections Living 6 [facility] Start: 12-11-2021 End: 09-18-2022 History SDOH Physical Activity DPW 5 [facility] Start: 1990 Sex Assigned At Not on file [facility] Start: 11-01-2020 End: 09-09-2022 Exposure to SARS-CoV-2 (event) Not sure [facility] Start: 1990 Sex Assigned At Female [facility] History of tobacco use Current smoker [facility] Work Phone: Start: 09-18-2022 History SDOH Alcohol Std Drinks 0 [facility] Start: 09-18-2022 History SDOH Financial 4 [facility] Start: 11-01-2022 Tobacco use and exposure User of smokeless tobacco [facility] Start: 11-01-2022 Tobacco Comment vape [facility] Start: 11-01-2021 End: 02-02-2024 Tobacco smoking status GAIS Unknown if ever smoked [facility] Start: 08-04-2020 Rare [facility] Start: 08-04-2020 None [facility] Start: 08-04-2020 With Family [facility] Start: 09-17-2022 End: 03-18-2023 Social connection and isolation panel [facility] Start: 09-06-2012 In a typical week, how many times do you talk on the telephone with family, friends, or neighbors? Patient refused [facility] Do you belong to any clubs or organizations such as hindu groups, unions, fraternal or athletic groups, or school groups? No [facility] Are you now , , , , never or living with a partner? [facility] How often to you hav e a drink containing alcohol? Never [facility] How hard is it for y ou to pay for the very basics like food, housing, medical care, and heating Not very hard [facility] Do you feel stress - tense, restless, nervous, or anxious, or unable to sleep at night because your mind is troubled all the time - these days [OSQ] Only a little [facility] (I/We) worried royce er (my/our) food would run out before (I/we) got money to buy more. Never true [facility] Start: 07-11-2023 End: 06-07-2025 Alcohol intake Ex-drinker (finding) [facility] Start: 05-21-2023 [facility] Are you now , , , , never or living with a partner? [facility] Do you feel stress - tense, restless, nervous, or anxious, or unable to sleep at night because your mind is troubled all the time - these days [OSQ] To some extent [facility] Start: 03-24-2025 End: 04-14-2025 Tobacco smoking status NHIS Smokes tobacco daily (finding) [facility] Medical Equipment Procedure Code Equipment Code Equipment Original Text Equipment Identifier Dates [id number], [id number] Start: 11-19-2023 End: 03-12-2024 Comment on above: [...] up, Bedside Cart Locked, Safety level maintained [facility] 05-09-2022 Functional Status [facility] 04-05[facility]2015 Are you deaf, or do you have serious difficulty hearing No 04/05/2015 8:32 AM Ricky Jane MA No [facility] 04-05-2015 Are you blind, or do you have serious difficulty seeing, even when wearing glasses No 04/05/2015 8:32 AM Ricky Jane MA [facility] 04-05-2015 Do you have serious difficulty walking or climbing stairs No 04/05/2015 8:32 AM Ricky Jane MA [facility] 04-05-2015 Do you have difficul ty dressing or bathing No 04/05/2015 8:32 AM Ricky Jane MA No [facility] 04-05-2015 Because of a physica l, mental, or emotional condition, do you have difficulty doing errands alone such as visiting a physician's office or shopping No 04/05/2015 8:32 AM Ricky Jane MA [facility] Mental Status Date Assessment Result Facility 03-24-2025 Cognitive function Voice/Name [facility] Work Phone: 12-13-2023 Cognitive function Voice/Name [facility] Work Phone: 08-07-2023 Cognitive function Level Of Cons ciousness Awake;Alert;Appropriate;Fol lows Commands [facility] Work Phone: 05-09-2022 Mental Status Orientation Oriented x 4 [facility] 05-09-2022 Mental Status [facility] 04-05-2015 Because of a physica l, mental, or emotional condition, do you have serious difficulty concentrating, remembering, or making decisions No 04/05/2015 8:32 AM EDT Ricky Porter MA No [facility] Clinical Notes 11-22-2014 to 06-07-2025 Kishor Hernandez MD - 06/07/2025 5:30 PM EDTPatient InstructionsKishor Hernandez MD - 04/27/2025 11:40 AM EDTPatient InstructionsRicky Porter MA - 04/20/2025 3:42 PM EDT Note Date & Type Note Facility 06-07-2025 Note HNO ID: [id number] Author: KISHOR HERNANDEZ MD Service: ? Author Type: Physician Type: Progress Notes Filed: 06/07/2025 17:31 Note Text: Reason for Visit Physical HPI Aiden French is a 35-year-old female, with a history of depression, presenting with insomnia and fatigue. Aiden reports persistent insomnia and fatigue since starting Wellbutrin, which she takes at 0600. She experiences difficulty falling asleep, often lying awake until 0417-2731 despite going to bed at 2100. She feels exhausted upon waking and requires 1-2 hours to overcome morning grogginess. She describes her sleep as half awake and non-restorative, leading to mental exhaustion. She has tried melatonin without improvement. She denies significant snoring, but her boyfriend's snoring occasionally disrupts her sleep. Aiden has a history of depression and notes that Wellbutrin provides energy during the day but exacerbates her insomnia. She has experimented with taking half the dose in the evening, but this did not improve her sleep. She is considering discontinuing Wellbutrin due to its impact on her sleep. She has a busy lifestyle, caring for her children and planning to start a part-time job. Her youngest child has been particularly clingy, making it difficult for her to exercise regularly. She describes her diet as inconsistent, often eating leftovers from her son's plate and lacking sufficient meat intake due to its expense. She has a sweet tooth and enjoys cooking, particularly vegetable stir goldberg on white rice. She denies regular exercise but tries to stay active when possible. She also reports a recent exposure to poison radha, for which she has applied steroid cream. SOCIAL HISTORY[1] Past medical history, appointments, medications, allergies reviewed. Pertinent Lab/Diagnostic Studies are reviewed and discussed today Current Outpatient Medications: buPROPion (WELLBUTRIN) 75 mg tablet traZODone (DESYREL) 50 mg tablet omeprazole (PRILOSEC) 40 mg capsule Docosahexanoic Acid 200 mg cap Health Maintenance Hepatitis B Vaccine(1 of 3 - 19+ 3-dose series) HPV Vaccine(1 - 3-dose SCDM series) Cervical Cancer Screening Influenza Vaccine(1)@ Review Of Systems Constitutional: (+) insomnia, (+) fatigue Ears/Nose/Mouth/Throat: (-) snoring Musculoskeletal: (+) neck pain Skin: (+) rash Physical Exam BP 109/58 Pulse 84 Resp 16 Wt 75.8 kg (167 lb 3.2 oz) LMP 05/16/2025 (Exact Date) No BMI 32.65 kg/m? GENERAL: NAD, alert and oriented. SKIN: Unremarkable, no rash or skin lesions. Noted small area of poison radha. HEAD: Normocephalic. EYES: PERRLA, EOMI, conjunctiva clear. EARS: External ears normal, canals clear, TM's normal. NOSE/SINUSES: Nares normal. Septum midline. OROPHARYNX: Lips, mucosa, and tongue normal, good dentition. No oral lesions noted. NECK: Supple, no lymphadenopathy, normal thyroid, no carotid bruits. LUNGS: Clear to auscultation bilaterally, no wheezes/rhonchi/rales. HEART: Regular rate and rhythm, no murmurs. No ectopy. EXTREMITIES: Normal, no deformities, no skin discoloration, no edema. NEURO: Awake, alert and oriented x3, cranial nerves II-XII grossly intact, normal gait, no involuntary motions. Labs: - Blood Work: - Platelet Count: 416 ?10?/?L (slightly elevated) - Blood Glucose: Normal - Other Parameters: Within normal limits Assessment and Plan 1. Annual physical exam (Z00.00) Reviewed recent lab results; all within normal limits except for a mildly elevated platelet count at 416. - Monitor platelet count. 2. Primary insomnia (F51.01) Chronic insomnia with difficulty initiating sleep and non-restorative sleep, likely exacerbated by Wellbutrin use. - Start trazodone at bedtime. - Advised on sleep hygiene and discussed potential benefits of trazodone for sleep initiation. Voice recognition software was used to compose this office note. Please excuse any unintended typographical errors. Recording using modu software for draft documentation of the visit was discussed with the patient/authorized circulation sales representative; all questions welcomed and answered. Patient/authorized circulation sales representative agreed to proceed Kishor Hernandez MD [1] Social History Tobacco Use Smoking status: Former Current packs/day: 0.50 Average packs/day: 0.5 packs/day for 5.0 years (2.5 ttl pk-yrs) Types: Cigarettes Smokeless tobacco: Never Tobacco comments: vape Vaping Use Vaping status: Former Substance Use Topics Alcohol use: Not Currently Comment: occasionally Drug use: No [facility] 06-07-2025 History of Presen t illness Narrative Reason for Visit Physical HPI Aiden French is a 35-year-old female, with a history of depression, presenting with insomnia and fatigue. Aiden reports persistent insomnia and fatigue since starting Wellbutrin, which she takes at 0600. She experiences difficulty falling asleep, often lying awake until [id number] despite going to bed at 2100. She feels exhausted upon waking and requires 1-2 hours to overcome morning grogginess. She describes her sleep as half awake and non-restorative, leading to mental exhaustion. She has tried melatonin without improvement. She denies significant snoring, but her boyfriend's snoring occasionally disrupts her sleep. Aiden has a history of depression and notes that Wellbutrin provides energy during the day but exacerbates her insomnia. She has experimented with taking half the dose in the evening, but this did not improve her sleep. She is considering discontinuing Wellbutrin due to its impact on her sleep. She has a busy lifestyle, caring for her children and planning to start a part-time job. Her youngest child has been particularly clingy, making it difficult for her to exercise regularly. She describes her diet as inconsistent, often eating leftovers from her son's plate and lacking sufficient meat intake due to its expense. She has a sweet tooth and enjoys cooking, particularly vegetable stir goldberg on white rice. She denies regular exercise but tries to stay active when possible. She also reports a recent exposure to poison radha, for which she has applied steroid cream. SOCIAL HISTORY[1] Past medical history, appointments, medications, allergies reviewed. Pertinent Lab/Diagnostic Studies are reviewed and discussed today Current Outpatient Medications: buPROPion (WELLBUTRIN) 75 mg tablet traZODone (DESYREL) 50 mg tablet omeprazole (PRILOSEC) 40 mg capsule Docosahexanoic Acid 200 mg cap Health Maintenance Hepatitis B Vaccine(1 of 3 - 19+ 3-dose series) HPV Vaccine(1 - 3-dose SCDM series) Cervical Cancer Screening Influenza Vaccine(1)@ Review Of Systems Constitutional: (+) insomnia, (+) fatigue Ears/Nose/Mouth/Throat: (-) snoring Musculoskeletal: (+) neck pain Skin: (+) rash Physical Exam BP 109/58 Pulse 84 Resp 16 Wt 75.8 kg (167 lb 3.2 oz) LMP 05/16/2025 (Exact Date) No BMI 32.65 kg/m GENERAL: NAD, alert and oriented. SKIN: Unremarkable, no rash or skin lesions. Noted small area of poison radha. HEAD: Normocephalic. EYES: PERRLA, EOMI, conjunctiva clear. EARS: External ears normal, canals clear, TM's normal. NOSE/SINUSES: Nares normal. Septum midline. OROPHARYNX: Lips, mucosa, and tongue normal, good dentition. No oral lesions noted. NECK: Supple, no lymphadenopathy, normal thyroid, no carotid bruits. LUNGS: Clear to auscultation bilaterally, no wheezes/rhonchi/rales. HEART: Regular rate and rhythm, no murmurs. No ectopy. EXTREMITIES: Normal, no deformities, no skin discoloration, no edema. NEURO: Awake, alert and oriented x3, cranial nerves II-XII grossly intact, normal gait, no involuntary motions. Labs: - Blood Work: - Platelet Count: 416 10 / L (slightly elevated) - Blood Glucose: Normal - Other Parameters: Within normal limits Assessment and Plan 1. Annual physical exam (Z00.00) Reviewed recent lab results; all within normal limits except for a mildly elevated platelet count at 416. - Monitor platelet count. 2. Primary insomnia (F51.01) Chronic insomnia with difficulty initiating sleep and non-restorative sleep, likely exacerbated by Wellbutrin use. - Start trazodone at bedtime. - Advised on sleep hygiene and discussed potential benefits of trazodone for sleep initiation. Voice recognition software was used to compose this office note. Please excuse any unintended typographical errors. Recording using modu software for draft documentation of the visit was discussed with the patient/authorized circulation sales representative; all questions welcomed and answered. Patient/authorized circulation sales representative agreed to proceed Kishor Hernandez MD [1] Social History Tobacco Use Smoking status: Former Current packs/day: 0.50 Average packs/day: 0.5 packs/day for 5.0 years (2.5 ttl pk-yrs) Types: Cigarettes Smokeless tobacco: Never Tobacco comments: vape Vaping Use Vaping status: Former Substance Use Topics Alcohol use: Not Currently Comment: occasionally Drug use: No documented in this encounter [facility] 06-07-2025 Instructions Kishor Hernandez MD - 06/07/2025 1:52 PM EDT We discussed your insomnia and energy levels: - You are currently taking Wellbutrin in the morning, which helps with energy during the day but is contributing to significant insomnia. You reported difficulty falling asleep until 12:00-2:00 AM (sometimes as late as 4:00 AM) despite lying down at 9:00 PM. You also feel exhausted and unrested upon waking. - I recommended trying Trazodone at night to help improve your sleep. This prescription has been sent to your pharmacy. Please take it as directed and let me know if it helps. - Continue taking Wellbutrin in the morning as prescribed. If your sleep issues persist or worsen, we can reassess your treatment plan. We discussed your diet and nutrition: - You mentioned that you often skip meals and primarily eat leftovers from your son s plate, which includes fruits and vegetables but limited protein. - I recommend incorporating more balanced meals into your diet, including protein sources like meat, beans, or tofu, to ensure you are meeting your nutritional needs. We reviewed your recent blood work: - Your results were mostly normal, including your blood sugar levels. However, your platelet count was slightly elevated at 416. This is not concerning at this time, but we will monitor it during future visits. We discussed your poison radha exposure: - You have a small area of poison radha on your arm. Continue applying steroid cream as needed to manage symptoms and prevent worsening. Follow-Up: - Please monitor your sleep and energy levels while taking Trazodone and let me know how you are doing at your next visit or sooner if needed. - If your poison radha worsens or does not improve, please contact the office. Let me know if you have any additional concerns or questions. documented in this encounter [facility] 04-27-2025 Note HNO ID: [id number] Author: KISHOR HERNANDEZ MD Service: ? Author Type: Physician Type: Progress Notes Filed: 04/27/2025 12:21 Note Text: Reason for Visit Follow up HPI Aiden French is a 34-year-old female presenting with chronic back pain and seeking a referral to a command and control specialist. Aiden reports a 3-year history of constant, severe back pain described as a stabbing sensation, which she attributes to a work-related injury in 2021. She was initially diagnosed with a back strain by an occupational therapist and was advised that it would heal in 3-6 weeks. However, the pain has persisted and worsened over time. She recently discovered through a spinal specialist that she has a herniated disc at T7-T8, which was not disclosed to her at the time of her initial injury. The pain is localized to a small, pinpoint area in her thoracic spine and is exacerbated by twisting to the right, lifting weights, and sleeping on her side. She describes the pain as feeling like a lightning bolt when twisting to the right and experiences numbness and tingling in her arm and fingers when lying on her side. She also reports muscle spasms and a sensation of being punched in the stomach when lifting objects. Aiden has been unable to engage in physical activities such as gardening and exercise due to the pain. She also reports difficulty performing daily tasks such as picking up her baby and brushing her hair. She has been using her right hand predominantly due to the pain in her left side. Aiden is currently not working and is seeking a referral to a command and control specialist who works with the [employer] ([employer]) to address her back pain and herniated disc. She is also working with a manager software to address her work-related injuries. Social History Tobacco Use Smoking status: Former Current packs/day: 0.50 Average packs/day: 0.5 packs/day for 5.0 years (2.5 ttl pk-yrs) Types: Cigarettes Smokeless tobacco: Never Tobacco comments: vape Vaping Use Vaping status: Former Substance Use Topics Alcohol use: Not Currently Comment: occasionally Drug use: No Past medical history, appointments, medications, allergies reviewed. Pertinent Lab/Diagnostic Studies are reviewed and discussed today Current Outpatient Medications: buPROPion (WELLBUTRIN) 75 mg tablet omeprazole (PRILOSEC) 40 mg capsule sertraline (ZOLOFT) 25 mg tablet Docosahexanoic Acid 200 mg cap Health Maintenance Hepatitis B Vaccine(1 of 3 - 19+ 3-dose series) Cervical Cancer Screening@ Review Of Systems Constitutional: (+) insomnia Musculoskeletal: (+) chronic stabbing thoracic back pain, (+) limited right trunk rotation, (+) thoracic muscle spasms Neurological: (+) upper arm numbness, (+) paresthesia of two fingers, (+) positional numbness and tingling when side lying Psychiatric: (+) anxiety Physical Exam BP 105/72 Pulse 64 Resp 16 Wt 76.3 kg (168 lb 3.2 oz) LMP 04/16/2025 (Exact Date) BMI 32.85 kg/m? GENERAL: NAD, alert and oriented SKIN: Unremarkable, no rash or skin lesions. HEAD: Normocephalic EYES: PERRLA, EOMI, conjunctiva clear LUNGS: Clear to auscultation bilaterally, no wheezes/rhonchi/rales. HEART: Regular rate and rhythm, no murmurs. No ectopy. EXTREMITIES: Normal, no deformities, no skin discoloration, no edema. NEURO: Awake, alert and oriented x3, cranial nerves II-XII grossly intact, normal gait, no involuntary motions Labs (No labs discussed.) Tests (No tests discussed.) Imaging (2021) MRI of the thoracic spine: Herniated disc at T7-T8. Assessment and Plan 1. Chronic right-sided thoracic back pain (M54.6) Stabbing pain (R52) Prolapsed thoracic intervertebral disc (M51.24) Persistent right-sided thoracic back pain with stabbing quality, ongoing for three years following a work-related injury in 2021. Initial diagnosis was a back strain, but recent MRI revealed a herniated disc at T7-T8. Pain exacerbated by twisting to the right, lifting, and certain sleeping positions. Associated with numbness and tingling in the left arm and fingers, likely related to C7-T1 nerve involvement. - Referral to [facility] for evaluation by a command and control specialist who works with the [employer] ([facility]). - Patient to follow up with the command and control specialist for further management and potential surgical intervention. Voice recognition software was used to compose this office note. Please excuse any unintended typographical errors. Recording using modu software for draft documentation of the visit was discussed with the patient/authorized circulation sales representative; all questions welcomed and answered. Patient/authorized circulation sales representative agreed to proceed Kishor Hernandez MD [facility] 04-27-2025 History of Presen t illness Narrative Reason for Visit Follow up HPI Aiden French is a 34-year-old female presenting with chronic back pain and seeking a referral to a command and control specialist. Aiden reports a 3-year history of constant, severe back pain described as a stabbing sensation, which she attributes to a work-related injury in 2021. She was initially diagnosed with a back strain by an occupational therapist and was advised that it would heal in 3-6 weeks. However, the pain has persisted and worsened over time. She recently discovered through a spinal specialist that she has a herniated disc at T7-T8, which was not disclosed to her at the time of her initial injury. The pain is localized to a small, pinpoint area in her thoracic spine and is exacerbated by twisting to the right, lifting weights, and sleeping on her side. She describes the pain as feeling like a lightning bolt when twisting to the right and experiences numbness and tingling in her arm and fingers when lying on her side. She also reports muscle spasms and a sensation of being punched in the stomach when lifting objects. Aiden has been unable to engage in physical activities such as gardening and exercise due to the pain. She also reports difficulty performing daily tasks such as picking up her baby and brushing her hair. She has been using her right hand predominantly due to the pain in her left side. Aiden is currently not working and is seeking a referral to a command and control specialist who works with the [employer] ([facility]) to address her back pain and herniated disc. She is also working with a manager software to address her work-related injuries. Social History Tobacco Use Smoking status: Former Current packs/day: 0.50 Average packs/day: 0.5 packs/day for 5.0 years (2.5 ttl pk-yrs) Types: Cigarettes Smokeless tobacco: Never Tobacco comments: vape Vaping Use Vaping status: Former Substance Use Topics Alcohol use: Not Currently Comment: occasionally Drug use: No Past medical history, appointments, medications, allergies reviewed. Pertinent Lab/Diagnostic Studies are reviewed and discussed today Current Outpatient Medications: buPROPion (WELLBUTRIN) 75 mg tablet omeprazole (PRILOSEC) 40 mg capsule sertraline (ZOLOFT) 25 mg tablet Docosahexanoic Acid 200 mg cap Health Maintenance Hepatitis B Vaccine(1 of 3 - 19+ 3-dose series) Cervical Cancer Screening@ Review Of Systems Constitutional: (+) insomnia Musculoskeletal: (+) chronic stabbing thoracic back pain, (+) limited right trunk rotation, (+) thoracic muscle spasms Neurological: (+) upper arm numbness, (+) paresthesia of two fingers, (+) positional numbness and tingling when side lying Psychiatric: (+) anxiety Physical Exam BP 105/72 Pulse 64 Resp 16 Wt 76.3 kg (168 lb 3.2 oz) LMP 04/16/2025 (Exact Date) BMI 32.85 kg/m GENERAL: NAD, alert and oriented SKIN: Unremarkable, no rash or skin lesions. HEAD: Normocephalic EYES: PERRLA, EOMI, conjunctiva clear LUNGS: Clear to auscultation bilaterally, no wheezes/rhonchi/rales. HEART: Regular rate and rhythm, no murmurs. No ectopy. EXTREMITIES: Normal, no deformities, no skin discoloration, no edema. NEURO: Awake, alert and oriented x3, cranial nerves II-XII grossly intact, normal gait, no involuntary motions Labs (No labs discussed.) Tests (No tests discussed.) Imaging (2021) MRI of the thoracic spine: Herniated disc at T7-T8. Assessment and Plan 1. Chronic right-sided thoracic back pain (M54.6) Stabbing pain (R52) Prolapsed thoracic intervertebral disc (M51.24) Persistent right-sided thoracic back pain with stabbing quality, ongoing for three years following a work-related injury in 2021. Initial diagnosis was a back strain, but recent MRI revealed a herniated disc at T7-T8. Pain exacerbated by twisting to the right, lifting, and certain sleeping positions. Associated with numbness and tingling in the left arm and fingers, likely related to C7-T1 nerve involvement. - Referral to [facility] for evaluation by a command and control specialist who works with the [employer] ([facility]). - Patient to follow up with the command and control specialist for further management and potential surgical intervention. Voice recognition software was used to compose this office note. Please excuse any unintended typographical errors. Recording using modu software for draft documentation of the visit was discussed with the patient/authorized circulation sales representative; all questions welcomed and answered. Patient/authorized circulation sales representative agreed to proceed Kishor Hernandez MD documented in this encounter [facility] 04-27-2025 Instructions Kishor Hernandez MD - 04/27/2025 9:55 AM EDT We discussed your chronic back pain: - You have been experiencing constant stabbing pain in your mid-back (thoracic region) for three years, which worsens with twisting, lifting, and prolonged weight-bearing. You also reported numbness and tingling in your left arm and fingers, as well as difficulty sleeping due to pain. - You mentioned that a spinal specialist previously identified a herniated disc at T7-T8, which was not initially disclosed to you. - I provided a referral to a command and control specialist at [facility], as requested. Please follow up with them to evaluate your condition further and determine appropriate treatment options. - If your symptoms worsen or you experience new symptoms such as loss of bowel or bladder control, please seek immediate medical attention. We discussed your limitations and lifestyle impact: - You noted that the pain has significantly affected your ability to perform daily activities, including caring for your child, gardening, and other physical hobbies. - You also reported that the pain has limited your ability to use your left hand and arm effectively. Next steps: - Schedule an appointment with the command and control specialist at [facility] using the referral provided. - Continue to avoid activities that exacerbate your pain, such as twisting, heavy lifting, or prolonged weight-bearing. - Consider using supportive measures, such as heat or ice packs, to help manage discomfort as needed. Please let me know if you have any additional questions or concerns. documented in this encounter [facility] 04-20-2025 Note HNO ID: [id number] Author: RICKY PORTER MA Service: ? Author Type: Business Development Representative Type: Progress Notes Filed: 04/20/2025 16:44 Note Text: Patient left without being seen [facility] 04-20-2025 History of Presen t illness Narrative Patient left without being seen documented in this encounter [facility] 04-14-2025 Discharge summary [facility] 04-14-2025 Radiology Diagnostic study note [facility] [address], [place] [address] Abdomen/Pelvis W IV Cont ONLY MR#: [id number] Acct: [id number] Name: AIDEN FRENCH Rep #: [id number] : 1990 F 34 From: Koby Bocanegra MD PCP: Dr. Kishor Hernandez MD Status: REG E R Study:Abdomen/Pelvis W IV Cont ONLY Date of E xam: 04/14/25 Exam# [id number] Ordering Dr: Leonardo Love DO PROCEDURE: ABDOMEN/PELVIS W IV CONT ONLY 04/14/2025 REASON FOR EXAM: LLQ PAIN TECHNIQUE: ABDOMEN/PELVIS W IV CONT ONLY Coronal and Sagittal reconstruction series were provided. CONTRAST: Isovue-300 VOLUME: 98 mL One or more dose reduction techniques were used (e.g., Automated exposure control, adjustment of the mA and/or kV according to patient size, use of iterative reconstruction technique. RADIATION DOSE SUMMARY: CTDlvol: 26.3 mGy DLP: 857.72 mGycm COMPARISON: Abdominal CT 04/04/2021 FINDINGS: Lung bases: Clear. Liver: Within normal limits. Gallbladder: Unremarkable, no biliary ductal dilatation. Spleen: Normal size and morphology. Pancreas: Unremarkable. Adrenals: Unremarkable. Kidneys: Normal, symmetric enhancement. No urolithiasis or hydronephrosis. Bladder: Underdistended, grossly unremarkable. Reproductive Organs: Uterus and adnexae appear within normal limits. Small crenulated peripherally enhancing right ovarian cyst compatible with a physiologic involuting corpus luteum. Bowel: Unremarkable. No obstruction or active inflammatory process. Normal appendix. Lymph nodes: No suspicious lymph node enlargement. Vasculature: The abdominal aorta and IVC are normal. Peritoneum / Retroperitoneum: No ascites or free air. Bones: No significant abnormality. CT/Abdomen/Pelvis W IV Cont ONLY IMPRESSION: No acute or active inflammatory intra-abdominal pathology. Reading Location: [facility] CC: Dr. Kishor Hernandez MD; Dr. Austen Love DO ~ Junior Accountant Bookkeeper: Signed [facility] 04-14-2025 Discharge summary Note Date/Time April 14, 2025 9:25pm [facility] Medical Records Department [address] [place] [address] Emergency Department Summary 04/14/25 MR#: [id number] Acct: [id number] Name: AIDEN FRENCH Rep #:[id number] : 1990 34 From: Austen Love DO PCP: Dr. Kishor Hernandez MD Status:REG E R Location: ED HPI History of Present Illness Chief Complaint: Abd Pain Narrative Narrative: Patient is a 34-year-old female with a past medical history of anxiety, depression, gestational diabetes who presented to the emergency department chiefcomplaint of abdominal pain. Patient states that she has had abdominal pain offand on for the last several days and states that she feels like it is moving around and becoming worse. States that usually after she eats about an hour later her pain worsens. Patient states that she is nauseous but denies vomiting. Patient denies any previous abdominal surgeries. Patient denies any sick contacts [facility] Medical History Care and examination of lactating mother Vaginal delivery History of depression History of hemorrhage GDM, class A1 SROM (spontaneous rupture of membranes) Active labor at term Infertility hemorrhage depression Gestational diabetes Anxiety Depression Ovarian cyst Home Medications ?Medication ?Instructions ?Recorded ?Last Taken ?Type bupropion HCl 75 mg tablet 75 mg PO DAILY 03/24/25 Unk nown History omeprazole 40 mg capsule,delayed 40 mg PO BID 03/24/25 Unknown History release Allergy/AdvReac Type Severity Reaction Status Date / Time No Known Allergies Allergy Verified 04/14/25 17:41 Surgical History History of ankle surgery Social History household members: family housing: house Smoking Status: Current every day smoker tobacco type: e-cigarettes substance use type: does not use ROS ROS ED ROS Narrative Constitutional: Denies any fevers, chills, headaches, lightness, dizziness Eyes: Denies change in vision double vision blurry vision Cardiovascular: Denies chest pain Respiratory: Denies shortness of breath Abdomen: Of abdominal pain as noted above as well as nausea denies vomiting : Denies any painful urination, hematuria, polyuria Neurological: Denies any numbness, wheeze, tingling Musculoskeletal: Denies back pain Skin: Any rashes or lesions EXAM Physical Exam Narrative Exam Narrative: General: Patient lying in bed rest comfortably did not appear to be acute distress Head: Atraumatic, normocephalic Eyes: PERRL bilaterally, EOMI bilateral, no conjunctival injection noted Neck: Soft, supple, trachea midline Cardiovascular: Patient tachycardic with a regular rhythm Respiratory: Clear to auscultation bilaterally Abdomen: Soft, nondistended, tender to palpation left lower quadrant no rebound or guarding on exam Extremities: +5/5 strength noted in the bilateral upper and lower extremities Neurological: Patient following commands knew that she was at [facility] year is 2024 Skin: Warm, dry, intact no rashes or lesions noted Const Vital Signs: 04/14/25 17:38 04/14/25 19:38 Temperature 96.5 F L Temperature Source Oral Pulse Rate 102 H 84 Respiratory Rate 16 18 Blood Pressure 144/91 H 133/80 H Blood Pressure Mean 108 97 Pulse Ox 99 98 Oxygen Delivery Method Room Air Room Air MDM MDM MDM Narrative Medical decision making narrative: Patient is a 34-year-old female who presents to the emergency department the chief complaint of abdominal pain. On the differential diagnosis includes but not limited to diverticulitis, abscess, bowel obstruction, pancreatitis, cholecystitis. Once workup is obtained reviewed she will be reevaluated. Patient be given IV fluids morphine Zofran. Patient CBC reviewed and showed a white count of 11,000, hemoglobin was 13, platelet count was noted to be normal at 345. Patient sodium normal at 140, potassium normal 3.6, creatinine normal at 0.88. Patient's AST and ALT were 18 and 24 respectively. Patient lipase was 13, is negative. Patient urinalysis reviewed and showed no evidence of infection she does not have any urinary symptoms. Patient's CT abdomen pelvis with IV contrast reviewed showed no acute or active inflammatory intra-abdominal pathology. On reevaluation patient she is feeling better she would like to go home at this point time. Patient will be given prescriptions for Bentyl and Zofran. She wasadvised to follow-up with her doctor in outpatient setting return with worseningsymptoms or concerns. She is agreeable spinal course concerns answered she was discharged home in stable condition. Lab Data Labs: Laboratory Results - last 24 hr 04/14/25 19:50 WBC 11.7 H RBC 4.36 Hgb 13.0 Hct 38.9 MCV 89.2 MCH 29.8 MCHC 33.4 RDW Std Deviation 41.0 RDW Coeff of Jamil 12.6 Plt Count 345 MPV 9.6 Immature Gran % (Auto) 0.300 Neut % (Auto) 66.8 Lymph % (Auto) 24.4 Sierra % (Auto) 6.0 Eos % (Auto) 1.8 Baso % (Auto) 0.7 Absolute Neuts (auto) 7.8 H Absolute Lymphs (auto) 2.85 Nucleated RBC % 0 Sodium 140 Potassium 3.6 Chloride 107 Carbon Dioxide 21.4 Anion Gap 12 BUN 12 Creatinine 0.88 Estim Creat Clear Calc 84.53 Est GFR (MDRD) Non-Af 90 BUN/Creatinine Ratio 13.5 Glucose 93 Calcium 9.3 Total Bilirubin 0.61 AST 18 ALT 24 Alkaline Phosphatase 80 Total Protein 7.2 Albumin 4.3 Globulin 2.9 Albumin/Globulin Ratio 1.5 Lipase 13 Serum , Qual NEGATIVE Urine Color Yellow Urine Clarity Cloudy Urine pH 7.0 Ur Specific [place] 1.015 Urine Protein 15 H Urine Glucose (UA) Normal Urine Ketones Negative Urine Occult Blood Negative Urine Nitrite Negative Urine Bilirubin Negative Urine Urobilinogen 1 H Ur Leukocyte Esterase 25 H Radiography Diagnostic Testing: Clinical Impression(s) from Imaging Studies Abdomen/Pelvis CT 04/14/25 20:40 IMPRESSION: No acute or active inflammatory intra-abdominal pathology. Reading Location: [facility] Discharge Plan Triage Chief Complaint: Abd Pain ED Provider: Austen Love Dx/Rx/DC Orders Clinical Impression: Abdominal pain, History of anxiety, History of depression Prescriptions: No Action omeprazole 40 mg capsule,delayed release(DR/EC) 40 mg PO BID bupropion HCl 75 mg tablet 75 mg PO DAILY Primary Care Provider: Kishor Hernandez Referrals: Kishor Hernandez MD [Primary Care Provider] - Activity Restrictions/Additional Instructions: Follow-up with your doctor in outpatient setting. Return with worsening symptoms or concerns. Your blood work did not show any acute findings and your CT was normal. Use prescriptions as prescribed and return with worsening symptoms or any concerns Print Language: Citizen Of [place] Disposition Disposition: Home, Self Care What to do if you have Problems For any increased pain, shortness of breath, bleeding, nausea or vomiting, chestpain, or any unexpected problems, contact your Primary Care Provider. Call [facility] ([phone]) or report to the closest Emergency Room. Call 911 if necessary. 04/14/252124 <Electronically signed by Austen Love DO> Cosigner Signature (if applicable): CC: Dr. Kishor Hernandez MD ~ Signed [facility] Work Phone: [phone]) 434-958807-07-2025 Telephone encounter Note* Telephone Encounter - Patti Mckeon RN - 04/11/2025 8:23 AM EDT Pt had put in for the Bupropion, but only gave 30 tablets instead of 60 tablets. Pt takes the medication BID. Please resend. Set up Physical for 06/07/25. Please add lab work for Physical and let Pt know once it has been entered. The patient has been identified by name and date of : Yes Caregiver verified no other encounters exist for this prescription request: Yes Caregiver confirmed with patient/requestor that no other refills are due, in the near future, with this provider at this time: Yes The last office visit in the department: 06/15/2024 Does the patient have a future office visit with this provider/department: Yes 06/07/2025 Requested Prescriptions Pending Prescriptions Disp Refills buPROPion (WELLBUTRIN) 75 mg tablet 60 tablet 1 Sig: Take 1 tablet by mouth two times a day. Patti Mckeon RN April 11, 2025 8:23 AM [facility]07-07-2025 Miscellaneous Notes* Telephone Encounter - Patti Mckeon RN - 04/11/2025 8:23 AM EDT Pt had put in for the Bupropion, but only gave 30 tablets instead of 60 tablets. Pt takes the medication BID. Please resend. Set up Physical for 06/07/25. Please add lab work for Physical and let Pt know once it has been entered. The patient has been identified by name and date of : Yes Caregiver verified no other encounters exist for this prescription request: Yes Caregiver confirmed with patient/requestor that no other refills are due, in the near future, with this provider at this time: Yes The last office visit in the department: 06/15/2024 Does the patient have a future office visit with this provider/department: Yes 06/07/2025 Requested Prescriptions Pending Prescriptions Disp Refills buPROPion (WELLBUTRIN) 75 mg tablet 60 tablet 1 Sig: Take 1 tablet by mouth two times a day. Patti Mckeon RN April 11, 2025 8:23 AM documented in this encounterVan [facility]07-[facility] Radiology Diagnostic study note [facility] [address] [place], [place] [address] Abdomen Complete MR#: [id number] Acct: [id number] Name: AIDEN FRENCH Rep #: [id number] : 1990 F 34 From: Isai Rodriguez MD PCP: Dr. Kishor Hernandez MD Status: REG C LI Study:Abdomen Complete Date of Exam: 12/28 Exam# [id number] Ordering Dr: Mireya Hatfield DO PROCEDURE: ABDOMEN COMPLETE 04/07/2025 REASON FOR EXAM: ABDOMINAL PAIN TECHNIQUE: ABDOMEN COMPLETE COMPARISON: Previous abdominal pelvic CT FINDINGS: Liver: Normal echotexture and size at 14.1 cm. No discrete lesion or biliary dilatation. Gallbladder: Unremarkable. Gallbladder wall measures 2.3 mm Common bile duct: Normal measuring 4 mm. Pancreas: Visualized portions are sonographically unremarkable. Kidneys: The right kidney measures 10.4 cm. The left kidney measures 10.9 cm. No hydronephrosis, calculi or mass Spleen: Normal in size and echotexture measuring 10.8 cm. Aorta: Tapers normally IVC: Patent Peritoneal Findings: No ascites US/Abdomen Complete IMPRESSION: No suspicious sonographic findings Reading Location: [facility] CC: Dr. Kishor Hernandez MD; DO Jeremi Thompson Junior Accountant Bookkeeper: Signed [facility]06-20-2025 Radiology Diagnostic study note [facility] [address] [place] [address] Chest PA and Lateral MR#: [id number] Acct: [id number] Name: AIDEN FRENCH Rep #: [id number] : 1990 F 34 From: Joey Siegel MD PCP: Dr. Kishor Hernandez MD Status: REG E R Study:Chest PA and Lateral Date of Exam: 03/24/25 Exam# [id number] Ordering Dr: Mireya Hatfield DO PROCEDURE: CHEST PA AND LATERAL 03/24/2025 REASON FOR EXAM: CHEST PAIN TECHNIQUE: CHEST PA AND LATERAL COMPARISON: 12/13/2023. FINDINGS: The lungs are expanded. There is no demonstrated parenchymal abnormality. There is no demonstrated pleural abnormality. Normal heart and pericardium. Normal mediastinum and jonny. Normal visualized pulmonary arteries. Normal visualized aortic arch and descending thoracic aorta. Normal visualized thoracic spine. Normal visualized ribs, clavicles, and shoulders. There is no demonstrated abnormality of the visualized soft tissue structures ofthe upper abdomen. RAD/Chest PA and Lateral IMPRESSION: No evidence for acute abnormality. Reading Location: [place] [address] CC: Dr. Kishor Hernandez MD; Flip Hatfield DO ~ Junior Accountant Bookkeeper: Signed [facility]06-20-2025 Radiology Diagnostic study note [facility] [address] [place] [address] CTA Chest W/WO Contrast MR#: [id number] Acct: [id number] Name: AIDEN FRENCH Rep #: [id number] : 1990 F 34 From: Joey Siegel MD PCP: Dr. Kishor Hernandez MD Status: REG E R Study:CTA Chest W/WO Contrast Date of Exam: 03/25/25 Exam# [id number] Ordering Dr: Mireya Hatfield DO PROCEDURE: CTA CHEST W/WO CONTRAST 03/25/2025 REASON FOR EXAM: CHEST/BACK PAIN TECHNIQUE: CTA CHEST W/WO CONTRAST Multiplanar Sagittal and Coronal images were obtained. CONTRAST: Isovue 370 VOLUME: 100 mL One or more dose reduction techniques were used (e.g., Automated exposure control, adjustment of the mA and/or kV according to patient size, use of iterative reconstruction technique). RADIATION DOSE SUMMARY: CTDlvol: 12.96 mGy DLP: 448 mGycm COMPARISON: Chest radiograph on 03/24/2025. FINDINGS: Normal enhancement of the main pulmonary artery and right and left pulmonary arteries. Normal enhancement of the bilateral peripheral pulmonary arteries. There is no demonstrated pulmonary embolism. Normal thoracic aorta and visualized great vessels. There is no demonstrated aortic dissection. Normal heart and pericardium. Normal mediastinum. Normal hilar regions. Normal visualized trachea and bronchi. The lungs are well expanded. Normal pulmonary parenchyma. Normal pleura. Normal chest wall structures. Normal osseous structures. Normal visualized upper abdomen. CT/CTA Chest W/WO Contrast IMPRESSION: No demonstrated pulmonary embolism or arterial dissection. Reading Location: [place] [address] CC: Dr. Kishor Hernandez MD; Flip Hatfield DO ~ Junior Accountant Bookkeeper: Signed [facility]06-13-2025 Telephone encounter Note* Telephone Encounter - Jennifer Regan MA - 03/18/2025 2:08 PM EDT Left message on vm to call office back Jennifer Regan MA [facility]06-13-2025 Miscellaneous Notes* Telephone Encounter - Jennifer Regan MA - 03/18/2025 2:08 PM EDT Left message on vm to call office back Jennifer Regan MA * Telephone Encounter - Kishor Hernandez MD - 03/18/2025 12:40 PM EDT Sent the medication Regards, Kishor Hernandez MD * Telephone Encounter - Daysi Olmstead RN - 03/18/2025 8:43 AM EDT Patient calls to ask if provider would place her back on the Wellbutrin now that she is no longer . Patient last seen for Annual 06/15/2024. Aware appointment needs scheduled for that and asking if provider would order medication prior to seeing patient. Please review and advise, Daysi Olmstead RN documented in this encounterVan [facility]06-13-2025 Telephone encounter Note * Telephone Encounter - Kishor Hernandez MD - 03/18/2025 12:40 PM EDT Sent the medication Regards, Kishor Hernandez MD [facility]06-13-2025 Telephone encounter Note* Telephone Encounter - Daysi Olmstead RN - 03/18/2025 8:43 AM EDT Patient calls to ask if provider would place her back on the Wellbutrin now that she is no longer . Patient last seen for Annual 06/15/2024. Aware appointment needs scheduled for that and asking if provider would order medication prior to seeing patient. Please review and advise, Daysi Olmstead RN [facility]05-02-2025 History of Present illness Narrative* Lisa Pulliam, (R) - 02/04/2025 8:00 AM EDT RADIOLOGY SERVICE PROGRESS NOTE SERVICE DATE: 02/04/2025 [...] Patients Receiving Radiopharmaceuticals was given to the patient,discussed, signed, scanned in her record, copy given to patient and original retained by the department. It is recommended to discontinue for 24 hours after administration for this radio pharmaceutical. She was in agreement. ALLERGIES: Reviewed and unchanged MEDICATIONS REVIEWED: No PATIENT RELEVANT IMPLANT DATA REVIEWED: Not Applicable PATIENT PRESENTS WITH AN IMPLANTABLE OR ATTACHED WELDING MACHINE OPERATOR ELECTRO GAS: n/a CREATININE: Creatinine Date Value Ref Range [...] creatinine assay has traceable calibration to isotope dilution- mass spectrometry. Refer to KDIGO guidelines for clinical interpretation. In patients with unstable renal function, e.g. those with acute kidney injury, the eGFRmay not accurately reflect actual GFR. eGFR- Date [...] 08:20 PATIENT DISCHARGED TO: Ambulatory patient, left MA department area. Is this a therapy: No A Diagnostic radioactive procedure has taken place, with no further precautions necessary other than routine body substance precautions. More information regarding radiation safety can be found usingthis link: [email or web address]%20Nuclear%20Medicine%[email or web address] SIGNATURE: ANANT Olmos) PATIENT NAME: Aiden French DATE: February 04, 2025 TIME: 10:00 AM PAGER/CONTACT #: documented in this encounterVan [facility]ert [facility]05-02-2025 Miscellaneous Notes* Addendum Note - Lisa Pulliam RT(R) - 02/04/2025 8:00 AM EDTEncounter addended by: Lisa Pulliam RT(R) on: 02/04/2025 10:24 AM Actions taken: Clinical Note Signed documented in this encounterVan Wert [facility] Hospital05-02-2025 Note* Addendum Note - Lisa Pulliam RT(R) - 02/04/2025 8:00 AM EDTEncounter addended by: Lisa Pulliam RT(R) on: 02/04/2025 10:24 AM Actions taken: Clinical Note Signed [facility]05-02-2025 NoteHNO ID: [id number] Author: LISA PULLIAM RT(R) Service: Nuclear Medicine [...] PATIENT PRESENTS WITH AN IMPLANTABLE OR ATTACHED WELDING MACHINE OPERATOR ELECTRO GAS: n/a CREATININE: Creatinine Date Value Ref Range [...] 08:20 PATIENT DISCHARGED TO: Ambulatory patient, left [place] department area. Is this a therapy: No A Diagnostic radioactive procedure has taken place, with no further precautions necessary other than routine body substance precautions. More information regarding radiation safety can be found using this link: [email or web address] 20Diagnostic%20Nuclear%20Medicine%[email or web address] SIGNATURE: RT Amarilis(R) PATIENT NAME: Aiden French DATE: February 04, 2025 TIME: 10:00 AM PAGER/CONTACT #:[facility]04-21-2025 History of Present illness Narrative* Jose Delgado, SENIOR PHYSICIAN.WOODEN FURNITURE POLISHER - 01/24/2025 9:30 AM EDT VIRTUAL VISIT PROGRESS NOTE This is a virtual visit. It required patient-provider interaction for the medical decision making as documented below. I have communicated my name and active licensure. The patient's identity and physical location wereverified at the time of this visit. Either the patient or their legal circulation sales representative has been informed of the risks and benefits of -- and alternatives to -- treatment through a remote evaluation andconsents to proceed with the evaluation remotely. CC: [...] in for refills of famotidine 20mg BID andwas off all PPI's. Currently: She is back [...] SURGICAL HISTORY Procedure Laterality Date EGD W/O [facility] SPEC VARICIES INJ 08/03/2024 FAMILY HISTORY Problem [...] RECTAL route three times a day for 7days. Use as directed. 30 g 0 Docosahexanoic [...] 24, 2025 9:40 AM documented in this encounterVan Wert County Hospital04-21-2025 NoteHNO ID: [id number] Author: JOSE DELGADO APRN.CNP Service: ? Author [...] visit. Either the patient or their legal circulation sales representative has been informed of the risks [...] response to Tx, then refer to Dr. Saunders/Rose/Mairvel for refractory GERD - omeprazole (PRILOSEC) 40 [...] office TBD based on testing Jose Delgado APRN.WOODEN FURNITURE POLISHER January 24, 2025 9:40 [facility]02-27-2025 Telephone encounter Note* Telephone Encounter - Omayra Garcia RN - 12/02/2024 6:04 AM EST Patient had ankle surgery yesterday. She is asking if it is safe to breastfeed since she is on painmedications. Conferenced to the Answering Service for Nadja DIGITAL COMPUTER OPERATOR. [facility]02-27-2025 Miscellaneous Notes* Telephone Encounter - Omayra Garcia RN - 12/02/2024 6:04 AM EST Patient had ankle surgery yesterday. She is asking if it is safe to breastfeed since she is on painmedications. Conferenced to the Answering Service for Nadja DIGITAL COMPUTER OPERATOR. documented in this encounterVan Wert County Hospital02-25-2025 Telephone encounter Note * Telephone Encounter - Aure Smalls MA - 11/30/2024 1:33 PM EST Patient phones requesting refills as follows: spoke with her to confirm current meds, not taking any PPI currently Requested Prescriptions Pending Prescriptions Disp Refills famotidine (PEPCID) 20 mg tablet 60 tablet 3 Sig: Take 1 tablet by mouth two times a day. Aure Smalls CMA [facility]02-25-2025 Miscellaneous Notes* Telephone Encounter - Aure Smalls MA - 11/30/2024 1:33 PM EST Patient phones requesting refills as follows: spoke with her to confirm current meds, not taking any PPI currently Requested Prescriptions Pending Prescriptions Disp Refills famotidine (PEPCID) 20 mg tablet 60 tablet 3 Sig: Take 1 tablet by mouth two times a day. Aure Smalls CMA * Telephone Encounter - Humberto Matute - 11/30/2024 12:59 PM EST Patient called requesting a refill on Famotidine. documented in this encounterVan Wert [facility] Hospital02-25-2025 Telephone encounter Note * Telephone Encounter - Humberto Matute - 11/30/2024 12:59 PM EST Patient called requesting a refill on Famotidine. [facility]01-31-2025 Telephone encounter Note* Telephone Encounter - Madhavi Edwards LPN - 11/05/2024 11:56 AM EST Patient Flexcomhart message requesting the following refill Refill(s) Requested: Requested Prescriptions Pending Prescriptions Disp Refills sertraline (ZOLOFT) 25 mg tablet 30 tablet 5 Sig: Take 1 tablet by mouth once daily. ALLERGIES No Known Allergies (home) [phone] (cell) Last Office Visit Date: 06/15/2024 Last Distance Health Visit: Visit date not found Future Appointment: Visit date not found The patients preferred pharmacy has been captured for this encounter? yes Request is for script(s) to be escript to pharmacy. Madhavi Edwards LPN [facility]01-31-2025 Miscellaneous Notes* Telephone Encounter - Madhavi Edwards LPN - 11/05/2024 11:56 AM EST Patient Flexcomhart message requesting the following refill Refill(s) Requested: Requested Prescriptions Pending Prescriptions Disp Refills sertraline (ZOLOFT) 25 mg tablet 30 tablet 5 Sig: Take 1 tablet by mouth once daily. ALLERGIES No Known Allergies (home) [phone] (cell) Last Office Visit Date: 06/15/2024 Last Distance Health Visit: Visit date not found Future Appointment: Visit date not found The patients preferred pharmacy has been captured for this encounter? yes Request is for script(s) to be escript to pharmacy. Madhavi Edwards LPN documented in this encounterVan Wert County Hospital01-22-2025 NoteHNO ID: [id number] Author: AMIRAH RIEVRA PA-C Service: ? Author Type: Physician Blasting Coal Miner Type: Progress Notes Filed: 10/27/2024 12:34 Note Text: This note was created using PowerOasisriter. Subjective Aiden French is a 34 year [...] MG CAPSULE - OSELTAMIVIR 75 MG CAPSULE BLACK [facility]01-22-2025 History of Present illness Narrative* Amirah Rivera PA-C - 10/27/2024 12:13 PM EST This note was created using [employer]. Subjective Aiden French is a 34 year [...] CAPSULE Amirah Rivera PA-C documented in this encounterVan [facility]ert [facility]01-08-[facility]25 History of Present illness Narrative* Bryce Guillen, RT(R) - 10/13/2024 12:20 PM EST Radiology Service Progress Note PATIENT [...] PATIENT PRESENTS WITH AN IMPLANTABLE OR ATTACHED WELDING MACHINE OPERATOR ELECTRO GAS: No RADIOLOGY DEPARTMENT: General X-ray: Exam(s) Completed: Lower Extremity X- Ray(s): Foot, Right and Wt. Bearing PERIPHERAL IV DATA: Not applicable SIGNED BY: RT Kia(Miguel) October 13, 2024 12:11 PM documented in this encounterVan Wert County Hospital01-08-2025 NoteHNO ID: [id number] Author: BRYCE GUILLEN RT(R) Service: Radiology Author [...] PATIENT PRESENTS WITH AN IMPLANTABLE OR ATTACHED WELDING MACHINE OPERATOR ELECTRO GAS: No RADIOLOGY DEPARTMENT: General X-ray: Exam(s) Completed: Lower Extremity X-Ray(s): Foot, Right and Wt. Bearing PERIPHERAL IV DATA: Not applicable SIGNED BY: RT Kia(Miguel) October 13, 2024 12:11 [facility]01-08-2025 NoteHNO ID: [id number] Author: ABEL THORNTON APRN.WO[employer]URNITURE POLISHER Service: ? Author Type: Nurse Practitioner Type: [...] history is provided by the patient. No speech language assistant was used. Pain (foot) Review of Systems [...] IMPRESSION IMPRESSION: No acute process is seen. Junior Accountant Bookkeeper: AGUSTINA Transcribe Date/Time: Oct 13 2024 12:46P Dictated by : DYANA CAZARES MD Try to rest to take Tylenol and ice foot at this time. Offered podiatry patient not interested at this time we will follow-up if signs and symptoms persist. Patient agreeable to care plan. Abel Thornton APRN.[facility]01-08-2025 History of Present illness Narrative* Abel Thornton APRN.WOODEN FURNITURE POLISHER - 10/13/2024 11:49 AM EST Subjective Came in with complaints of right foot pain. Patient says it has been the last 4- yasir days. Patient did not injure it in [...] history is provided by the patient. No speech language assistant was used. Pain (foot) Review of Systems [...] SURGICAL HISTORY Procedure Laterality Date EGD W/O [facility] SPEC VARICIES INJ 08/03/2024 ALLERGIES Patient has [...] RECTAL route three times a day for 7days. Use as directed. FAMILY HISTORY Problem Relation [...] IMPRESSION IMPRESSION: No acute process is seen. Junior Accountant Bookkeeper: AGUSTINA Transcribe Date/Time: Oct 13 2024 12:46P Dictated by : DYANA CAZARES MD Try to rest to take Tylenol and ice foot at this time. Offered podiatry patient not interested at this time we will follow-up if signs and symptoms persist. Patient agreeable to care plan. Abel Thornton APRN.CNP documented in this encounterVan Wert County Hospital12-23-2024 Note* Addendum Note - Jose Delgado APRN.CNP - 09/27/2024 11:26 AM ESTAddended by: JOSE DELGADO on: 09/27/2024 11:26 AM Modules accepted: Orders [facility]12-23-2024 Miscellaneous Notes* Addendum Note - Jose Delgado APRN.CNP - 09/27/2024 11:26 AM ESTAddended by: JOSE DELGADO on: 09/27/2024 11:26 AM Modules accepted: Orders documented in this encounterVan Wert County Hospital12-19-2024 Instructions* Patient Instructions* Jose Delgado APRN.CNP - 09/23/2024 8:44 AM EST - If still having symptoms of GERD/chest discomfort then it is ok to use over the counter Mylanta or liquid gaviscon documented in this encounterVan Wert County Hospital12-19-2024 NoteHNO ID: [id number] Author: JOSE DELGADO APRN.CNP Service: ? Author [...] up in office 3 months/PRN Jose Delgado APRN.[employer]IT[employer] POLISHER September 23, 2024 8:46 [facility]12-19-2024 History of Present illness Narrative* Jose Delgado APRN.WOODEN FURNITURE POLISHER - 09/23/2024 8:11 AM EST CHIEF COMPLAINT: Patient presents with: Recheck: EGD [...] up in office 3 months/PRN Jose Delgado APRN.WO[employer]EN FURNITURE POLISHER September 23, 2024 8:46 AM documented in this encounterVan Wert County Hospital12-09-2024 Telephone encounter Note * Telephone Encounter - Aure Smalls MA - 09/13/2024 10:13 AM EST Continue? Requested Prescriptions Pending Prescriptions Disp Refills sucralfate (CARAFATE) 100 mg/mL suspension [Pharmacy Med Name: SUCRALFATE 1 GM/10 ML SUSP] 420 mL 0 Sig: take 10 MILLILITERS ( 2 TEASPOONFULS ) by mouth three times a day for 14 days Please review and advise. Aure Smalls CMA [facility]12-09-2024 Miscellaneous Notes* Telephone Encounter - Aure Smalls MA - 09/13/2024 10:13 AM EST Continue? Requested Prescriptions Pending Prescriptions Disp Refills sucralfate (CARAFATE) 100 mg/mL suspension [Pharmacy Med Name: SUCRALFATE 1 GM/10 ML SUSP] 420 mL 0 Sig: take 10 MILLILITERS ( 2 TEASPOONFULS ) by mouth three times a day for 14 days Please review and advise. Aure Smalls CMA documented in this encounterVan Wert County Hospital11-19-2024 Telephone encounter Note * Telephone Encounter - Taryn Arizmendi MA - 08/24/2024 10:56 AM EST Patient phones requesting refills as follows: Requested Prescriptions Pending Prescriptions Disp Refills sucralfate (CARAFATE) 100 mg/mL suspension [Pharmacy Med Name: SUCRALFATE 1 GM/10 ML SUSP] 420 mL 0 Sig: take 10 MILLILITERS ( 2 TEASPOONFULS ) by mouth three times a day for 14 days Please review and advise. Taryn Arizmendi MA [facility]11-19-2024 Miscellaneous Notes* Telephone Encounter - Taryn Arizmendi MA - 08/24/2024 10:56 AM EST Patient phones requesting refills as follows: Requested Prescriptions Pending Prescriptions Disp Refills sucralfate (CARAFATE) 100 mg/mL suspension [Pharmacy Med Name: SUCRALFATE 1 GM/10 ML SUSP] 420 mL 0 Sig: take 10 MILLILITERS ( 2 TEASPOONFULS ) by mouth three times a day for 14 days Please review and advise. Taryn Arizmendi MA documented in this encounterVan Wert County Hospital10-29-2024 NoteHNO ID: [id number] Author: SHERYL HUI RN Service: ? Author Type: Registered Nurse Type: Nursing Progress Note Filed: 08/03/2024 15:28 Note Text: Dr Ramirez at bedside to speak with patient and friend.[facility]10-29-2024 Nurse Note* Sheryl Hui RN - 08/03/2024 3:[address] Ramirez at bedside to speak with patient and friend. [facility]10-29-[facility] Nurse Note* Sheryl Hui RN - 08/03/2024 3:[address] Ramirez at bedside to speak with patient and friend. documented in this encounterVan Wert County Hospital10-29-2024 Note* Discharge Instr - Nursing - Sheryl Hui RN - 08/03/2024 3:21 PM EDT The patient received a copy of EGD discharge instructions that contain information for how to contact the physician who performed the procedure and when to seek medical care. [facility]10-29-2024 Miscellaneous Notes* Discharge Instr - Sheryl Jennings RN - 08/03/2024 3:21 PM EDT The patient received a copy of EGD discharge instructions that contain information for how to contact the physician who performed the procedure and when to seek medical care. documented in this encounterVan Wert County Hospital10-29-2024 History and physical note * Edgardo Ramirez MD - 08/03/2024 2:00 PM EDT Endoscopy pre-operative H&P H&P completed prior to [...] Edgardo Ayala MD PATIENT NAME: Aiden French [facility]10-29-2024 History and physical note* Edgardo Ramirez MD - 08/03/2024 2:00 PM EDT Endoscopy pre-operative H&P H&P completed prior to [...] PATIENT NAME: Aiden French documented in this encounterVan Wert County Hospital10-24-2024 Instructions* Patient Instructions* Jose Delgado APRN.CNP - 07/29/2024 3:19 PM EDT - will need to pump and dump your breast milk for 24 hours after the upper endoscopy - start sucralfate 10ml three times a day documented in this encounterVan Wert County Hospital10-24-2024 NoteHNO ID: [id number] Author: JOSE DELGADO APRN.WO[employer]EN FURNITURE POLISHER Service: ? Author Type: Nurse Practitioner Type: [...] in swallowing. 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 The symptoms have notably worsened .Despite multiple medication trials, her symptoms remain uncontrolled, indicating the potential needfor further investigation. There is a family history suggestive of gallbladder disease, thus necessitating evaluation for biliary pathology as part of the differential diagnosis. Her recent negative H. pylori test reduces the likelihood that this infection is contributing to her symptoms, though endoscopic confirmation remains warranted to definitively rule out other esophageal or gastric patholog ies, including Loja s esophagus, esophagitis, or peptic [...] 29, 2024 7:40 PM documented in this encounterVan Wert County Hospital09-10-2024 NoteHNO ID: [id number] Author: KISHOR HERNANDEZ MD Service: ? Author [...] healthy diet and regular exercise Kishor Hernandez [facility]09-10-2024 History of Present illness Narrative* Kishor Hernandez MD - 06/15/2024 2:58 PM EDT Reason for Visit Patient presents with: Physical [...] exercise Kishor Hernandez MD documented in this encounterVan Wert County Hospital09-04-2024 NoteHNO ID: [id number] Author: DARYA QUIÑONES APRN.[employer]ITURE POLISHER Service: ? Author Type: Nurse Practitioner Type: [...] Covid-19 Vaccine( - 2022- season) Never done Influenza Vaccine(1) due on [...] Patient agreeable to treatment plan. Darya Quiñones APRN.[facility]09-04-2024 History of Present illness Narrative* Darya Quiñones APRN.MARY - 06/09/2024 4:38 PM EDT CC: Patient presents with: Recheck: 6 week follow up HPI Aiden French is a 34 year old female who presents today for follow up on chronic palpitaitonsand sternal pain. Pepcid restarted to see if [...] Covid-19 Vaccine( - 2022- season) Never done Influenza Vaccine(1) due on [...] occur. Patient agreeable to treatment plan. Darya Quñiones APRN.CNP documented in this encounterVan Wert County Hospital08-26-2024 Miscellaneous Notes* Telephone Encounter - Darya Quiñones APRN.CNP - 05/31/2024 12:58 PM EDT Will discuss further at upcoming appointment. Darya Quiñones APRN.CNP * Telephone Encounter - Lauren Mendez LPN - 05/28/2024 1:09 PM EDT Phoned patient went over notes below from Darya Quiñones MARKETING COMMUNICATIONS MANAGER. Patient said she is feeling the same. She has no changes in her symptoms at all. Patient said she called her insurance and was told they want to see heart monitor results first before would ok the ECHO. * Telephone Encounter - Darya Quiñones APRN.CNP - 05/27/2024 3:16 PM EDT Denied coverage for Echocardiogram by insurance. How is she feeling? Has she had improvement of symptoms? If not, we can talk further at follow up appointment to send appeal letter. Thank you Darya Qiuñones APRN.CNP documented in this encounterVan Wert County Hospital08-26-2024 Telephone encounter Note * Telephone Encounter - Darya Quiñones APRN.CNP - 05/31/2024 12:58 PM EDT Will discuss further at upcoming appointment. Darya Quiñones APRN.CNP [facility]08-23-2024 Telephone encounter Note* Telephone Encounter - Lauren Mendez LPN - 05/28/2024 1:09 PM EDT Phoned patient went over notes below from Darya Quiñones MARKETING COMMUNICATIONS MANAGER. Patient said she is feeling the same. She has no changes in her symptoms at all. Patient said she called her insurance and was told they want to see heart monitor results first before would ok the ECHO. [facility]08-22-2024 Telephone encounter Note* Telephone Encounter - Darya Quiñones APRN.CNP - 05/27/2024 3:16 PM EDT Denied coverage for Echocardiogram by insurance. How is she feeling? Has she had improvement of symptoms? If not, we can talk further at follow up appointment to send appeal letter. Thank you Darya Quiñones APRN.CNP [facility]07-27-2024 History of Present illness Narrative* Tc Moseley PA - 05/01/2024 9:41 AM EDT Images from the original note were not included. This note was created using PowerOasisriter. Subjective Aiden French is a 33 year [...] 2 days with no improvement with steroid cream,Rx for prednisone given. Patient is breast-feeding. Advised [...] ER evaluation. BLACK Palomo documented in this encounterVan Wert County Hospital07-26-2024 History of Present illness Narrative* Abel Thornton APRN.[facility] - 04/30/2024 9:56 AM EDT Subjective Came in with complaints of wasp sting on her left upper arm. Patient says it happened yesterday. Patient says it is red and sore. Patient says it does itch a little. Says it does feel little tingly. Patient denies any other symptoms. Patient denies any difficulty with range of motion. The history is provided by the patient. No speech language assistant was used. Review of Systems Constitutional: Negative. [...] areas. Patient will follow-up if signs and symptomsseem to be changing. Patient was instructed on things to watch for that would mean it changed from inflammatory response to a possible bacterial infection. Patient was okay with this care plan. Abel Thornton APRN.MARY documented in this encounterVan Wert County Hospital07-24-2024 History of Present illness Narrative* Darya Quiñones APRN.CNP - 04/28/2024 4:03 PM EDT CC: Patient presents with: Physical: Annual, review [...] lb) LMP 03/09/2024 (Exact Date) SpO2 99% BMI31.35 kg/m General Appearance: well appearing, in no [...] - 19+ 3-dose series) Never done Covid-19 Vaccine(1 - 2022- season) Never done Cervical Cancer Screening due on 07/11/2024 Influenza Vaccine(1) due on 06/06/2024 DTaP,Tdap,Td Vaccine(2 - Td or Tdap) due on 04/19/2026 Hepatitis C Screening Completed HIV Screening Completed HPV Vaccine Aged Out DATA REVIEWED: No new labs EKG Interpretation: RHYTHM: Normal sinus rhythm at 62 beats per minute AXIS: Normal axis INTERVALS: Normal OK interval QRS COMPLEX: Normal ST SEGMENT: Normal [...] plan. Darya Quiñones APRN.CNP documented in this encounterVan Wert County Hospital06-28-2024 Telephone encounter Note * Telephone Encounter - Lin Ramirez LPN - 04/02/2024 11:50 AM EDT Addendum to [facility] paperwork completed and faxed to pt's insurance. Lin Ramirez LPN [facility]06-28-2024 Miscellaneous Notes* Telephone Encounter - Lin Ramirez LPN - 04/02/2024 11:50 AM EDT Addendum to [facility] paperwork completed and faxed to pt's insurance. Lin Ramirez LPN * Telephone Encounter - Shu Reeves APRN.CNM - 03/30/2024 4:53 PM EDT Documentation completed on original packed for leave. If needed can add, GDMA1, back pain M54.9 andsituational depression. FMLA to begin at patient requested date and medical leave for 37 weeks. Thanks, Shu Reeves APRN.CNM * Telephone Encounter - Lin Ramirez LPN - 03/30/2024 3:45 PM EDT Please see below message, please advise and I will then contact [facility] and update pt's record. Lin Ramirez LPN * Telephone Encounter - Odalis Pino - 03/30/2024 2:36 PM EDT Yue from [facility] received faxed information regarding pt. However, she indicates this needs an addendum signed by a physician. In addition to this she needs to know the reason the pt was allocated to be off 3 weeks before the due date. This can be adjusted on original forms scanned and faxed on 01/01/24. Yue phone number is [phone] for questions. Fax on the original fax cover [phone] is confirmed. documented in this encounterVan Wert County Hospital06-25-2024 Telephone encounter Note * Telephone Encounter - Shu Reeves APRN.CNM - 03/30/2024 4:53 PM EDT Documentation completed on original packed for leave. If needed can add, GDMA1, back pain M54.9 andsituational depression. FMLA to begin at patient requested date and medical leave for 37 weeks. Thanks, Shu Reeves APRN.CNM [facility]06-25-2024 Telephone encounter Note* Telephone Encounter - Lin Ramirez LPN - 03/30/2024 3:45 PM EDT Please see below message, please advise and I will then contact [facility] and update pt's record. Lin Ramirez LPN [facility]06-25-2024 Telephone encounter Note* Telephone Encounter - Odalis Pino - 03/30/2024 2:36 PM EDT Yue from [facility] received faxed information regarding pt. However, she indicates this needs an addendum signed by a physician. In addition to this she needs to know the reason the pt was allocated to be off 3 weeks before the due date. This can be adjusted on original forms scanned and faxed on 01/01/24. Yue phone number is [phone] for questions. Fax on the original fax cover [phone] is confirmed. T [facility] Work Phone: 1(404) 988-676706-12-2024 Telephone encounter Note* Telephone Encounter - Odalis Pino - 03/17/2024 1:08 PM EDT Patient has been identified by name and date of : Yes Patient phones for refill(s): Requested Prescriptions Pending Prescriptions Disp Refills sertraline (ZOLOFT) 25 mg tablet 30 tablet 1 Sig: Take 1 tablet by mouth once daily. Date of last office visit in primary care: 05/13/2023 Date of next office visit in primary care: 04/28/2024 Please advise. Thank you. Odalis Pino. T [facility]06-12-2024 Miscellaneous Notes* Telephone Encounter - Odalis Pino - 03/17/2024 1:08 PM EDT Patient has been identified by [...] Thank you. Odalis Pino. documented in this encounterVan Wert County Hospital06-07-2024 History and physical note * Demetra Kessler MD - 03/12/2024 5:12 PM EDT DATE OF SERVICE: March 12, 2024 PROBLEM: [...] regret. The patient is certain she does notdesire future . She understands may need to add on LEEP procedure pending colposcopy. The rationale for the proposed surgery was discussed in addition to risks, benefits, and alternatives. General pre- and post-operative care was reviewed. Questions were answered. After discussion, the patient indicated a desire to proceed with the planned surgery. Demetra Kessler DO Medical Decision Making: Problems: Moderate: New problem with uncertain prognosis Risk: Moderate: Decision on minor surgery w/ risk factors Medical Decision Making Level: 4 - Moderate [facility]06-07-2024 History and physical note* Demetra Kessler MD - 03/12/2024 5:12 PM EDT DATE OF SERVICE: March 12, 2024 PROBLEM: [...] regret. The patient is certain she does notdesire future . She understands may need to add on LEEP procedure pending colposcopy. The rationale for the proposed surgery was discussed in addition to risks, benefits, and alternatives. General pre- and post-operative care was reviewed. Questions were answered. After discussion, the patient indicated a desire to proceed with the planned surgery. Demetra Kessler DO Medical Decision Making: Problems: Moderate: New problem with uncertain prognosis Risk: Moderate: Decision on minor surgery w/ risk factors Medical Decision Making Level: 4 - Moderate documented in this encounterVan Wert County Hospital06-07-2024 History of Present illness Narrative* Demetra Kessler MD - 03/12/2024 2:58 PM EDT Kraft Mill Operator offered: Patient declines. VISIT Aiden French is a 33 year old year old here for visit. Delivery Summary: 02/03/2024 Some left labial soreness ROS/ Recovery: Feeding: Breast and bottle feeding problems: Sore nipples Menses since delivery: normal flow, bright red, cramps Menstrual pattern prior to : Regular periods [place] since delivery: Not resumed Depression: denies symptoms [...] external genitalia normal, normal Bartholin's glands, urethra, [place]'s glands, no vulvar lesions, no cervical lesions, [...] RTC for colposcopy and 2 hour GTT Demetra Kessler DO documented in this encounterVan Wert County Hospital05-13-2024 History of Present illness Narrative* Demetra Kessler MD - 02/16/2024 1:56 PM EDT EARLY VISIT Aiden French is a 33 [...] feeling is very different than when she stillhad retained placental tissue. She does not think [...] in parent's room, does not feel rested [place] since delivery: Not resumed Emotional support: Yes Exercise: N/A Other issues: None PHYSICAL EXAMINATION: BP 110/78 Wt 165 lb 3.2 oz (74.9 kg) LMP 05/07/2023 (Exact Date) Yes BMI 29.26 kg/m General: pleasant,female in no apparent distress, A&O x 3. Skin warm and intact. Breast: Deferred Abdomen: soft, non-tender, and no masses. She has tenderness over pubic bone. Abdomen is not tenderand no uterine tenderness on exam. Non acute /Incision: N/A Pelvic: Deferred Bimanual: Deferred ASSESSMENT AND PLAN: 33 year old status post with normal course. Had in office Ipas procedure forretained placental tissue. She feels better since the [...] complete pre op at 6 week visit. Demetra Kessler DO documented in this encounterVan Wert County Hospital05-03-2024 Instructions* Patient Instructions* Desire French RN - 02/06/2024 3:22 PM EDT Information and Instructions: After a Manual Uterine Aspiration (IPAS) Procedure Bleeding Most people have some bleeding after an aspiration procedure. The amount differs for each everyone,ranging from no bleeding to moderate period-like bleeding [...] every hour for 2 hours, or passing multiplelarge clots or larger and larger clots. Cramping [...] the microwave, but beware, it s hot! Youmay also take ibuprofen (Motrin/ Advil) or naproxen [...] may recommend one, or you may choose toschedule one if you have any concerns, problems, or questions. Please do not put anything in your vagina for 1 week (no vaginal intercourse, toys, tampons, or douching). Do not swim or use hot tubs for 1 week. Baths by yourself (do not share water for 2 weeks) and showers are OK. Important Phone Numbers: [facility] Appointments in Jewelry Polisher ( Early Assessment Clinics) Reanna Zapien COUNT INCLUDES THE [facility] at [phone] [facility] at [phone] [facility] at [phone] After 4:30 PM or on weekends, you may reach the on-call Jewelry [employer]isher by calling the clinic where you wereseen. This will automatically transfer you to a [...] emotionally after a loss is important. Above all,don t blame yourself. Counseling is available to help you cope with your loss. A loss support group might also be a valuable resource to you and your partner. ONLINE RESOURCES Unspoken Grief: an online miscarriage support resource for miscarriage, stillbirth and loss unspokengrief.org A Heartbreaking Choice: support for diagnosis or termination for medical reasons. http://www.No.1 Traveller.MD Lingo/ [facility]: ending a for a abnormality http://www.healthtalkonline.org/Pregnancy_children/Ending_a_pregnancy_for_fetal_ abnormality Ending a Wanted : support for patients and families ending a after or maternal medical diagnosis https://endingawantedpregnancy.com Defending Roxana: one person's story about loss and collected resources. http://www.WAPA.MD Lingo [employer]: headquarters in [place] but with online support group https://www.[employer].Myshaadi.in/lkprhb-alft-syqfhyf-groups.html LOCAL RESOURCES Love Lives On, [facility] https://my.[facility].org/locations/[facility]/guest-services/suppo rt Tamiko(Families Experiencing Early Loss) [facility] https://consultqd.[facility].org/qodqapaaa-grkpviptc-bsauvaboype-program-leon fhqohc-oindjktg-ficwyrre/ [facility] - counseling services [phone] or toll free at [phone] [facility] Support Groups (not specific to loss) https://my.[facility] [email or web address]/[email or web address]/support-groups [facility]ment [facility] Counselors with experience with families facing the loss of a baby before . This service may be covered by your insurance. If not, [facility] will not turn anyone away because of inability to pay. or [phone] Jose Meredith, local counselor, not associated with [facility] [phone] Some of our families have recommended Jose Meredith as he specializes in helping families who have had or are facing a loss. This may be covered by your insurance, if not, a sliding scale payment plan is available. BOOKS Our Heartbreaking Choices: Forty-Six Women Share Their Stories of Interrupting a Much-Wanted , By Luly Arellano Silent Sorrow: Loss-Guidance and Support for You and [...] for induction of labor) documented in this encounterVan [facility]05-03-[facility]24 History of Present illness Narrative* Desire French RN - 02/06/2024 3:21 PM EDT I was called and notified of the patient having retained products of conception with fever, no bleeding. Pt offered In office IPAS vs Suction D&C. Pt was clinically stable and opted for In officeIPAS. I counseled the patient on risks and [...] Provided by office:Toradol 60 mg IM, see MAR Blood Type: A Hemoglobin: Hemoglobin Date Value [...] Desire French RN ; documented in this encounterVan Wert County Hospital05-03-2024 History of Present illness Narrative* Sarina Monotya APRN.MARINO - 02/06/2024 1:30 PM EDT Aiden French is a 33 year old female who is 3 days post presents for problem visitof abdominal pain, fever, chills and malaise. Reports [...] O73.0 - Discussed above findings with Dr. Waddell and orders received - IPAS to be completed in office - Discussed with patient and who agree with plan of care - Pre procedure medications ordered Sarina Montoya APRN.CNM documented in this encounterVan Wert County Hospital05-01-2024 Discharge summary Author Sarina Montoya [facility] February 04, 2024 8:41am Note Date/Time February 04, 2024 8:40am [facility] Medical Records Department [address] [place] [address] Discharge Summary 02/04/24 0838 MR#: [id number] Acct: [id number] Name: AIDEN FRENCH Rep #:[id number] : 1990 33 From: Sarina Montoya CNM PCP: Dr. Kishor Hernandez MD Status:ADM I N Location: [id number] Providers Date of Admission: 02/02/24 Primary Care [...] % (Auto) 67.2, Lymph % (Auto) 22.4, Sierra % (Auto) 6.6, Eos % (Auto) 1.9, [...] MARINO Montoya; Dr. Kishor Hernandez MD~ Signed [facility] Work Phone: 1(945) 407-942404-30-2024 History of Present illness Narrative* Gwendolyn Cote RN - 02/03/2024 9:35 AM EDT Patient delivered via by Christianne on 02/03/24 at [facility]. See OB history. Gwendolyn Cote RN documented in this encounterVan Wert County Hospital04-30-2024 History and physical note Author Shu Reeves [facility] February 03, 2024 3:10am Note Date/Time February 03, 2024 3:[address] [facility] Medical Records Department [address] [place], [place] [address]y[place] [address] H&P Exam - DIGITAL COMPUTER OPERATOR 02/03/24 0301 MR#: [id number] Acct: [id number] Name: AIDEN FRENCH Rep #:[id number] : 1990 33 From: Shu GRAHAM PCP: Dr. Kishor Hernandez MD Status:ADM I N [facility] HPI - General General Date of Admission: [...] management upon request 6) GBS negative 7) [facility] physician, notified of patient status and of above assessment and plan 02/03/24 0310 <Electronically signed by Shu Reeves CNM> Cosigner Signature (if applicable): CC: MARINO Reeves; Dr. Kishor Hernandez MD~ Signed [facility] Work Phone: 1(409) 848-143304-30-2024 Progress note Author Shu Reeves [facility] February 03, 2024 3:06am Note Date/Time February 03, 2024 3:0 6am [facility] Medical Records Department [address] [place] [address] Progress Note - OBGYN 02/03/24 0301 MR#: [id number] Acct: [id number] Name: AIDEN FRENCH Rep #:[id number] : 1990 33 From: Shu GRAHAM PCP: Dr. Kishor Hernandez MD Status:ADM I N Location: [place] [address] Subjective Subjective Epidural placed and prolonged heart [...] % (Auto) 68.0, Lymph % (Auto) 19.3, Sierra % (Auto) 8.0, Eos % (Auto) 2.4, [...] (6) Anxiety: (7) Depression: PLAN: Plan 1) [facility] physician, notified of patient status and of above assessment and plan. Ok to proceed with continued labor after recovery 2) Labor progressing, continue with expectant management 3) category 2 FHT, positional changes 02/03/24 0306 <Electronically signed by Shu Reeves CNM> Cosigner Signature (if applicable): CC: ~ Signed [facility] Work Phone: 1(120) 820-960904-30-2024 Procedure [facility] 01-30-2024 Note Indication Evaluation of growth Gestational [...] 11 oz EFW by: Hadlock (HC-AC-FL) Extended Operations Research Group Manager 3.9 mm Extremities / Bony Struc FL [...] ovary: Not visualized Performed By: Rhonda Headley [facility] Read By: Risa Barillas M.D.MATERNAL [id number] Progress note* Quick Notes - Demetra Kessler MD - 01/30/2024 1:44 PM EDT [...] wish to go to 41 week gestation Demetra Kessler DO [facility]04-26-2024 Miscellaneous Notes* Quick Notes - Demetra Kessler MD - 01/30/2024 1:44 PM EDT [...] wish to go to 41 week gestation Demetra Kessler DO documented in this encounterVan Wert County Hospital04-26-2024 Instructions* Patient Instructions* Mame Calvin MA - 01/30/2024 1:29 PM EDT SEQUENTIAL SCREENINGS [facility] offers sequential screenings for women who [...] testing. It will require an appointment withour nuclear test technician. This is not an ultrasound [...] the above symptoms, contact our office at [phone] and ask to speak with anurse. After hours, you can call doctors registry at [phone] OR call [facility] at [phone] ask to have the doctor property controller paged. If you consider this an emergency, dial 9-0 or go to your nearest emergency department. NEED HELP? Are you dealing with a violent or abusive relationship? Are you a victim of rape or sexual assult? Call [facility] ([place]) 24 hour Crisis Hotline: 570.879.1397 or 843-915-0793. MANUAL Your Guide to a Healthy manual is now on-line. Visit [email or web address]/HealthyPregnancyGuide to download your free copy documented in this encounterVan Wert County Hospital04-24-2024 History of Present illness Narrative* Patti Love MA - 01/28/2024 11:34 AM EDT POPULATION HEALTH NAVIGATION OUTREACH Action/FYI Patient called back and said that she plans on going through [employer]. She states she doesn't have a specific provider. Updated OB/PEDS field. OB/PEDS Reason for Outreach Medicaid OB/Peds Care Gaps due: N/A Patient Contacted: Spoke to patient/parent/or legal guardian Patient identified by name and : Yes Medicaid OB/Peds actions taken: Benavides/Welt Pocket 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 added Navigation Signature: Patti Love MA January 28, 2024 11:34 AM * Patti Love MA - 01/28/2024 11:25 AM EDT POPULATION HEALTH NAVIGATION OUTREACH Action/FYI Called and left a voicemail for patient to call me back directly Critical Signal Technologiest message sent OB/PEDS Reason for Outreach Medicaid OB/Peds Care Gaps due: N/A Patient Contacted: Unable or unnecessary to reach patient: Left message Flex[employer] message sent Navigation Signature: Patti Love MA January 28, 2024 11:28 AM documented in this encounterVan Wert County Hospital04-16-2024 History of Present illness Narrative* Demetra Keslser MD - 01/20/2024 1:03 AM EDT NST SUMMARY PROVIDER ASSESSMENT AND INTERPRETATION Aiden French is a 33 year old female, , who is at 36w6d with an CHAYITO of 02/11/2024, by Last Menstrual Period dating method. Indications for NST: Diabetes - Diet Controlled Baseline: 135 Variability: Moderate Accelerations: Present 15 X 15 Decelerations: None Contractions: TOCO: None Interpretation: Reactive SIGNATURE: Demetra Kessler DO documented in this encounterVan Wert County Hospital04-15-2024 Miscellaneous Notes* Quick Notes - Demetra Kessler MD - 01/19/2024 10:42 AM EDT [...] - Confirmed vertex - RTO 1 wk Demetra Kessler DO documented in this encounterVan Wert County Hospital04-15-2024 Instructions* Patient Instructions* Patti Sánchez MA - 01/19/2024 10:30 AM EDT SEQUENTIAL SCREENINGS The [facility] offers sequential screenings for women who [...] testing. It will require an appointment withour nuclear test technician. This is not an ultrasound [...] the above symptoms, contact our office at [phone] and ask to speak with anurse. After hours, you can call doctors registry at [phone] OR call [facility] at [phone] ask to have the doctor property controller paged. If you consider this an emergency, dial 9--1 or go to your nearest emergency department. NEED HELP? Are you dealing with a violent or abusive relationship? Are you a victim of rape or sexual assult? Call [facility] ([place]) 24 hour Crisis Hotline: 335.856.5790 or 522-842-5952. MANUAL Your Guide to a Healthy manual is now on-line. Visit [email or web address]/HealthyPregnancyGuide to download your free copy documented in this encounterVan Wert County Hospital04-08-2024 Miscellaneous Notes* Quick Notes - Demetra Kessler MD - 01/12/2024 8:36 AM EDT [...] IOL 39 weeks - RTO 1 wk Demetra Kessler DO documented in this encounterVan Wert County Hospital04-08-2024 Instructions* Patient Instructions* Ricky Porter MA - 01/12/2024 8:12 AM EDT SEQUENTIAL SCREENINGS The [facility] offers sequential screenings for women who [...] testing. It will require an appointment withour nuclear test technician. This is not an ultrasound [...] the above symptoms, contact our office at [phone] and ask to speak with anurse. After hours, you can call doctors registry at [phone] OR call [facility] at [phone] ask to have the doctor property controller paged. If you consider this an emergency, dial 6-1-8 or go to your nearest emergency department. NEED HELP? Are you dealing with a violent or abusive relationship? Are you a victim of rape or sexual assult? Call [facility] ([place]) 24 hour Crisis Hotline: 825.469.6650 or 992-447-6198. MANUAL Your Guide to a Healthy manual is now on-line. Visit [email or web address] to download your free copy documented in this encounterVan Wert County Hospital03-26-2024 Miscellaneous Notes* Telephone Encounter - Lin Ramirez LPN - 12/30/2023 1:43 PM EDT ANDREA paperwork completed, faxed to employer, scanned into EMR and filed in nurses station. JENNA Cuello documented in this encounterVan Wert County Hospital03-14-2024 Instructions* Patient Instructions* Hayley Parr RD - 12/18/2023 9:32 AM EDT Aim for [...] post meal blood sugars documented in this encounterVan Wert County Hospital03-13-2024 History of Present illness Narrative* Hayley Parr RD - 12/17/2023 3:07 PM EDT [facility] Nutrition Therapy: Virtual Consult - Re-assessment I have communicated my name and active licensure. The patient s identity and physical location wereverified at the time of this visit. Either the patient or their legal circulation sales representative has been informed of the risks [...] 12/17/2023 TIME: 3:10 PM documented in this encounterVan Wert County Hospital03-12-2024 Miscellaneous Notes* Telephone Encounter - Lin Ramirez LPN - 12/16/2023 11:59 AM EDT FMLA paperwork completed, original placed at assistant front end manager for pt to nut picker. Copy scanned into EMR and filed in nurses station. Lin Ramirez LPN * Telephone Encounter - Lin Ramirez LPN - 12/16/2023 11:52 AM EDT Pt's significant others FMLA completed and placed on providers desk for signature. Lin Ramirez LPN documented in this encounterVan Wert County Hospital03-11-2024 Miscellaneous Notes* Quick Notes - Demetra Kessler MD - 12/15/2023 4:34 PM EDT [...] of GDM in - RTO 2 wks Demetra Kessler DO documented in this encounterVan Wert County Hospital03-11-2024 Instructions* Patient Instructions* Patti Sánchez MA - 12/15/2023 4:20 PM EDT SEQUENTIAL SCREENINGS The [facility] offers sequential screenings for women who [...] testing. It will require an appointment withour nuclear test technician. This is not an ultrasound [...] the above symptoms, contact our office at [phone] and ask to speak with anurse. After hours, you can call doctors registry at [phone] OR call [facility] at [phone] ask to have the doctor property controller paged. If you consider this an emergency, dial 9-1-1 or go to your nearest emergency department. NEED HELP? Are you dealing with a violent or abusive relationship? Are you a victim of rape or sexual assult? Call [facility] 24 hour Crisis Hotline: 502.839.9407 or 231-665-4036. MANUAL Your Guide to a Healthy manual is now on-line. Visit [email or web address]/HealthyPregnancyGuide to download your free copy documented in this encounterVan Wert County Hospital03-10-2024 Discharge summary Author Rony Burgess [facility] December 14, 2023 1:55am Note Date/Time December 13, 2023 10:[address] [facility] Medical Records Department [address] [place] [address] Emergency Department Summary 12/13/23 MR#: [id number] Acct: [id number] Name: AIDEN FRENCH Rep #:[id number] : 1990 33 From: Rony Singh PCP: Dr. Kishor Hernandez MD Status:REG E R Location: ED HPI History of Present Illness Chief Complaint: Chest Pain PFSH PFS Medical History (Updated 12/13/23 @ 22:32 by [...] 100 100 Oxygen Delivery Method Room Air [facility] Narrative Medical decision making narrative: HISTORY OF [...] pathognomonic EKG changes (no diffuse ST elevations, OK depressions). GI etiology (i.e. Boerhaave syndrome) less [...] (Auto) 68.4 Lymph % (Auto) 18.8 L Sierra % (Auto) 7.8 Eos % (Auto) 2.3 [...] problems, contact your Primary Care Provider. Call [facility] ([phone]) or report to the closest Emergency Room. Call 911 if necessary. 12/14/23 0155 <Electronically signed by Rony Aditya DO> Cosigner Signature (if applicable): CC: Dr. Kishor Hernandez MD ~ Signed [facility] Work Phone: 1(953) 925-855903-08-2024 Miscellaneous Notes* Telephone Encounter - Dakota Thornton MD - 12/12/2023 8:49 AM EST Overall normal. Have her bring to visit Friday. Dakota Thornton MD documented in this encounterVan Wert County Hospital02-29-2024 Miscellaneous Notes* Telephone Encounter - Lin [...] pt. Lin Ramirez LPN documented in this encounterVan Wert County Hospital02-27-2024 Miscellaneous Notes* Telephone Encounter - Odalis Morales RN - 12/02/2023 11:49 AM EST 3rd risk assessment form submitted 12/02/2023. Odalis Morales RN documented in this [facility]02-26-2024 Miscellaneous Notes* Quick Notes - Cristin [...] lightheaded with position changes. 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 I have re-performed the HPI, Physical Examination, Assessment and Plan. Shu Reeves APRN.CNM documented in this encounterVan Wert County Hospital02-26-2024 Instructions* Patient Instructions* Eugenie Sarmiento LPN - 12/01/2023 4:16 PM EST SEQUENTIAL SCREENINGS [facility] offers sequential screenings for women who [...] testing. It will require an appointment withour nuclear test technician. This is not an ultrasound [...] the above symptoms, contact our office at [phone] and ask to speak with anurse. After hours, you can call doctors registry at [phone] OR call [facility] at [phone] ask to have the doctor property controller paged. If you consider this an emergency, dial 9--7 or go to your nearest emergency department. NEED HELP? Are you dealing with a violent or abusive relationship? Are you a victim of rape or sexual assult? Call [facility] [facility] 24 hour Crisis Hotline: 110.532.1295 or 171-457-6455. MANUAL Your Guide to a Healthy manual is now on-line. Visit [email or web address]/HealthyPregnancyGuide to download your free copy documented in this encounterVan Wert County Hospital02-20-2024 Instructions* Patient Instructions* Hayley Parr RD - 11/25/2023 2:32 PM [...] meal blood sugars controlled. documented in this encounterVan Wert County Hospital02-19-2024 History of Present illness Narrative* Hayley Parr RD - 11/24/2023 3:19 PM EST [facility] Nutrition Therapy: Virtual Consult - Initial Assessment I have communicated my name and active licensure. The patient s identity and physical location wereverified at the time of this visit. 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 Desire French RN * Telephone Encounter - Manuela Luz MD - 11/19/2023 10:14 AM EST ordered * Telephone Encounter - Stephon Almonte RN - 11/19/2023 9:28 AM EST ----- Message from Manuela Waddell MD sent at 11/19/2023 9:06 AM EST ----- Pt can stop with the three hour test as she failed it already. Please pend supplies and arrange fordiabetic teaching/nutrition. documented in this encounterVan Wert County Hospital02-13-2024 Miscellaneous Notes* Telephone Encounter - Gwendolyn Cote RN - 11/18/2023 8:38 AM EST ----- Message from Manuela Waddell MD sent at 11/18/2023 7:58 AM EST ----- Notify patient she failed her GCT, needs 3hr. documented in this encounterVan Wert County Hospital02-12-2024 Miscellaneous Notes* Quick Notes - Demetra Kessler MD - 11/17/2023 3:43 PM EST [...] - Declines Tdap - RTO 2 wk Demetra Kessler DO documented in this encounterVan Wert County Hospital02-12-2024 Instructions* Patient Instructions* Patti Sánchez MA - 11/17/2023 3:30 PM EST SEQUENTIAL SCREENINGS [facility] offers sequential screenings for women who [...] testing. It will require an appointment withour nuclear test technician. This is not an ultrasound [...] the above symptoms, contact our office at [phone] and ask to speak with anurse. After hours, you can call doctors registry at [phone] OR call [facility] at [phone] ask to have the doctor property controller paged. If you consider this an emergency, dial 9--4 or go to your nearest emergency department. NEED HELP? Are you dealing with a violent or abusive relationship? Are you a victim of rape or sexual assult? Call [facility] ([place]) 24 hour Crisis Hotline: 495.577.4394 or 474-357-3153. MANUAL Your Guide to a Healthy manual is now on-line. Visit [email or web address]/HealthyPregnancyGuide to download your free copy documented in this encounterVan Wert County Hospital02-06-2024 Instructions* Patient Instructions* Zuleyma Castro APRN.CNP [...] illness Zuleyma Castro APRN.CNP documented in this encounterVan Wert County Hospital02-06-2024 History of Present illness Narrative* Zuleyma Castro APRN.CNP - 11/11/2023 9:37 AM EST Subjective Headache Associated symptoms include malaise/fatigue and nausea. Pertinent negatives include no fever. Aiden F Manolo is a 33 year old female [...] illness Zuleyma Castro APRN.CNP documented in this encounterVan Wert County Hospital12-20-2023 History of Present illness Narrative* Zuleyma [...] and treatment due to . Zuleyma Castro APRN.WOODEN FURNITURE POLISHER documented in this encounterVan Wert County Hospital12-04-2023 Miscellaneous Notes* Telephone Encounter - Dolores [...] Thank you. Dolores Gayle. documented in this encounterVan Wert County Hospital11-29-2023 Miscellaneous Notes* Quick Notes - Shu [...] scheduled Shu Reeves APRN.CNM documented in this encounterVan Wert County Hospital11-29-2023 Instructions* Patient Instructions* Shu Reeves APRN.CNM - 09/03/2023 4:21 PM EST Aspirin 81mg by mouth once daily for prevention of preeclampsia SEQUENTIAL SCREENINGS [facility] offers sequential screenings for women who [...] testing. It will require an appointment withour nuclear test technician. This is not an ultrasound [...] the above symptoms, contact our office at [phone] and ask to speak with anurse. After hours, you can call doctors registry at [phone] OR call [facility] at [phone] ask to have the doctor property controller paged. If you consider this an emergency, dial 9-1-1 or go to your nearest emergency department. NEED HELP? Are you dealing with a violent or abusive relationship? Are you a victim of rape or sexual assult? Call [facility] ([place]) 24 hour Crisis Hotline: 687.501.8420 or 827-408-4715. MANUAL Your Guide to a Healthy manual is now on-line. Visit [email or web address]/HealthyPregnancyGuide to download your free copy documented in this encounterVan Wert County Hospital10-30-2023 Miscellaneous Notes* Quick Notes - Demetra Kessler MD - 08/04/2023 2:32 PM EDT SW- Doing well. N/V controlled with B6 and Zofran. Having constipation. PE: Gen- NAD, well appearing See flowsheet A/p 12 wk gestation - Discussed Miralax and Colace, hydration, prune juice for constipation - Discussed checking cost and coverage of NIPT. Pt plans to check coverage today. NIPT today - NT normal today - RTO 4 wks Demetra Kessler DO documented in this encounterVan Wert County Hospital10-30-2023 Instructions* Patient Instructions* Patti Sánchez MA - 08/04/2023 2:17 PM EDT SEQUENTIAL SCREENINGS [facility] offers sequential screenings for women who [...] testing. It will require an appointment withour nuclear test technician. This is not an ultrasound [...] the above symptoms, contact our office at [phone] and ask to speak with anurse. After hours, you can call doctors registry at [phone] OR call [facility] at [phone] ask to have the doctor property controller paged. If you consider this an emergency, dial 9-1- or go to your nearest emergency department. NEED HELP? Are you dealing with a violent or abusive relationship? Are you a victim of rape or sexual assult? Call [facility] ([place]) 24 hour Crisis Hotline: 614.427.9696 or 715-794-2217. MANUAL Your Guide to a Healthy manual is now on-line. Visit [email or web address]/HealthyPregnancyGuide to download your free copy documented in this encounterVan Wert County Hospital10-24-2023 Miscellaneous Notes* Telephone Encounter - Stephon [...] absence. Stephon Almonte RN documented in this encounterVan Wert County Hospital10-10-2023 Miscellaneous Notes* Telephone Encounter - Coco Ko RN - 07/15/2023 12:30 PM EDT risk assessment form complete Coco Ko RN documented in this encounterVan Wert County Hospital10-06-2023 History of Present illness Narrative* Shu Reeves APRN.CNM - 07/11/2023 5:15 PM EDT OB point of care ultrasound was performed. See imaging tab for details. 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 Reviewed midwifery and oyster shipper services that are available. Follow up in 4 weeks or sooner prn. Shu Reeves APRN.CNM documented in this encounterVan [facility] Instructions* Patient Instructions* Shu Reeves APRN.CNM - 07/11/2023 1:00 PM EDT Please select the following link to access the [facility] Your Guide to a Healthy . [...] to help control my nausea and vomiting? MotherBaby has a helpful fact sheet on nausea in with recommendations. You can review it here: https://mothertobaby.org/fact-sheets/jbkvir-xnjitles-suhsvqhnt-nvp/pdf/. Also, eating small meals often, drinking plenty [...] . For more information, please see the [employer] fact sheet Paternal Exposures at https://mothertobaby.org/fact-sheets/exqmrmca-mliwjgtob-qxijriawu/pdf/. Metoclopramide October 06, 2019 This sheet talks [...] fact sheeton Nausea and Vomiting in at https://mothertobaby.org/fact-sheets/sebfop-kbyzjzmn-dqjscpqut-nvp/pdf/. Can metoclopramide increase the chance for a [...] trouble with milk production, working with a healthcare economics consultant may be the most helpful in [...] . For more information, please see the [employer] fact sheet on Paternal Exposures at https:/ /mothertobaby.org/fact-sheets/gmkvejwc-rotpwugnb-ysaztksfe/pdf/. [facility]Pregnancy at [facility] CenteringPregnancy is care that includes a [...] experiences *support person welcome! [facility] CenteringPregnancy Groups [facility] CenteringPregnancy group #2 with Shu Reeves CNM [...] 19 - Session 10 documented in this encounterVan [facility]09-20-[facility] History of Present illness Narrative* Abel Thornton APRN.WOODEN FURNITURE POLISHER - 06/25/2023 9:51 AM EDT CC: Patient [...] Patient agreeable to treatment plan. Abel Thornton APRN.WOODEN FURNITURE POLISHER documented in this encounterVan [facility]09-01-[facility] History of Present illness Narrative* Chandler [...] weeks. Chandler Burton MD documented in this encounterVan [facility]08-30-[facility] History of Present illness Narrative* Shu [...] 04, 2023 2:59 PM documented in this encounterVan [facility] Hospital08-24-2023 Miscellaneous Notes* Telephone Encounter - Lisa [...] gynecology if symptoms persist. documented in this encounterVan [facility] Hospital08-23-2023 History of Present illness Narrative* Shu Hackett APRN.WOODEN FURNITURE POLISHER - 05/28/2023 9:42 AM EDT This note was created using NoteWriter. Subjective Aiden French is a 32 year old female. 32 year old female with PMH anxiety and depression presents for complaints of vaginal pain Acute onset last night. She associates the pain after having intercourse. +nausea Denies sx. Denies fever Denies emesis. Denies diarrhea Has utilized Ibuprofen and endorses that has helped Has been seen seen by DIGITAL COMPUTER OPERATOR Endorses similar in past, one year ago States she went to ED and was evaluated at that time Denies that incident was accompanied with coitus. LMP-May 2 The history is provided by the patient. No speech language assistant was used. Vaginal Problem This is a [...] nursing note reviewed. Exam conducted with a rn picu present. Constitutional: General: She is not in [...] Plan ASSESSMENT/PLAN: 1. Pelvic pain - ICD9: [id number], ICD10: R10.2 Etiology unclear Differential Diagnosis includes STI, Ovarian cyst, and Cystitis Urine dip negative. - Labs of GC/Chlamydia, BVAMP, CVTV pending - Follow up with DIGITAL COMPUTER OPERATOR for further work up. Abstain from sex. OTC analgesics - Treatment deferred for vaginal discharge until results return, if positive please treat as indicated. Shu Hackett APRN.MARY documented in this encounterVan [facility] Hospital08-16-2023 Miscellaneous Notes* Telephone Encounter - Natalie Davila [employer] - 05/21/2023 1:58 PM EDT Please file order for bilateral diagnostic mammogram per protocol for 32 yr old and no prior mammograms. Thank you. documented in this encounterVan [facility] Hospital08-08-2023 History of Present illness Narrative* Liss [...] medication.. Liss Vaca APRN-MARY documented in this encounterVan [facility]06-28-2023 History of Present illness Narrative* Liss [...] medication.. Liss Vaca APRN-MARY documented in this encounterVan [facility]04-22-2023 History of Present illness Narrative* Kishor Hernandez MD - 01/25/2023 1:21 PM EDT Patient was not see today documented in this encounterVan [facility]ert [facility] Hospital04-19-2023 Miscellaneous Notes* Telephone Encounter - Kishor [...] Regards, Kishor Hernandez MD documented in this encounterVan [facility]ert County Hospital04-19-2023 Miscellaneous Notes* Telephone Encounter - Jen [...] in the emergency department. documented in this encounterVan [facility] Hospital01-27-2023 History of Present illness Narrative* Anthony Patterson, SENIOR PHYSICIAN.WOODEN FURNITURE POLISHER - 11/01/2022 12:42 PM EST Subjective HPI [...] care. Anthony Patterson APRN.MARY documented in this encounterVan [facility]12-14-2022 History of Present illness Narrative* Darya [...] - Instructed patient to contact office or drflw-yj-zluc after-hours promptly should condition worsen or any new symptoms appear. - [facility] and after hours crisis line 2. Dizziness - ICD9: 780.4, ICD10: R42 - orthostatics negative and Cooter Hallpike positive on left side - probable [...] plan Darya Quiñones APRN.CNP documented in this encounterVan [facility] Hospital12-05-2022 Instructions* Patient Instructions* Shaun Shelton APRN.CNP - 09/09/2022 11:35 AM EST Images from the original note were not included. documented in this encounterVan [facility] Hospital12-05-2022 History of Present illness Narrative* Shaun Shelton APRN.CNP - 09/09/2022 11:12 AM EST Subjective HPI [...] - COVID WITH FLUA+B, ROUTINE Shaun Shelton APRN.WOODEN FURNITURE POLISHER documented in this encounterVan [facility] Hospital09-14-2022 History of Present illness Narrative* Kishor Hernandez MD - 06/19/2022 5:25 PM EDT Reason for Visit Patient presents with: F/U 6 months: Depression - would like to discontinue meds Aidensindy French is a 32 year old female [...] is not having any panic attacks Kishor Hernnadez MD documented in this encounterVan [facility]08-31-2022 Miscellaneous Notes* Telephone Encounter - Dolores [...] you. Dolores Tan LPN documented in this encounterVan [facility] Hospital08-31-2022 Miscellaneous Notes* Telephone Encounter - Siria [...] advise LUCHO. * Telephone Encounter - Freya Long Pss - 06/04/2022 4:19 PM EDT Patient Aiden [...] you. Aleta Rosenberg LPN documented in this encounterVan [facility] Hospital08-04-2022 Hospital Discharge instructions Patient Education 05/09/2022 [...] of 104 F (40 C) or higher [phone] [employer]. [address] [place] [address]. All rights reserved. This information is not [...] with your healthcare provider for more information. [phone] [employer]. [address] [place] [address]85. All rights reserved. This information is not intended as a substitute for professional medical care. Always follow yourhealthcare professional's instructions. Follow Up Care 05/09/2022 14:12:38 With:TRAN CONNER DO Address: [address] [place] [address] [phone] When:2-4 days With:Call RONDA New Pt. Refferral [phone] Address:Unknown When:2-4 days [facility] 08-04-2022 Emergency department Discharge summary Discharge Instructions Thank you for allowing [facility] to assist you with your healthcare needs. The following is importantdischarge information regarding your hospital visit. Diagnosis from Today's Visit Syncope What to Do Next Instructions from Your Care Team No qualifying data available. Post Acute Orders No qualifying data available. You Need to Schedule the Following Appointments Follow Up with TRAN CONNER DO When Within 2-4 days Where: [address] [place] [phone] Follow Up with Call RONDA Harrell PtMathieu Refferral [phone] When Within 2-4 days Allergies NKA Medications [...] of 104 F (40 C) or higher [phone] [employer]. [address] [place] [address], [place] [address]. All rights reserved. This information is not [...] with your healthcare provider for more information. [phone] [employer]. [address] [place] [address]. All rights reserved. This information is not intended as a substitute for professional medical care. Always follow yourhealthcare professional's instructions. Additional Information VACCINATE! IT SAVES LIVES! Members of the community who have not yet received the COVID-19 vaccine and would like to receive it can visit one of [facility] vaccine clinics. There are many vaccine clinic locations within the [facility]. For locations and available times, please visit [email or web address]. It is important to note that some COVID mobile vaccine clinics are held outdoors and may be canceled in rainy orstormy conditions. To learn more about pediatric vaccinations (ages 5-11), we invite you to visit the [facility] webpage. https://www.[email or web address]/pages/8683-Usltw-Nhdgmkivekc-Szyemfzbji-Sjscn-Cxm stions.htmlTo learn more about the COVID-19 vaccine, we invite you to visit the [facility] website for a list of frequently asked questions. [email or web address]-gwg-Efpocbii/gwyxd-Psukmik-Hjytchyugj _Asked-Questions.pdf [facility] Patient [facility] Access Instructions: Stay connected with your healthcare team and access your personal medical information anytime with the [email or web address] Textbook Time Patient Portal. If you would like a full copy of your medical records please contact the [facility] Medical Records Department Friday through Friday between 8a.m. and 4:30p.m. Please follow the directions below to access the portal: 1.Access the email account you provided upon registration to the [facility].2.Look for an invitation email from [facility].3.Open the email and access the invitation link: Accept Invitation to [email or web address] Textbook Time4.Fill in the required salas to create your account. Sign into [email or web address] with your username and password that you [...] you will allow to register on the [email or web address] Time Patient Portal for access to your information. You can also access the [facility] Patient Portal on the [employer] jeannette. Simply click on Health Records under HealthData and then click on the [facility] logo. HOW TO SAFELY DISPOSE OF PRESCRIPTION [...] Call your local pharmacy or go to [email or web address] to find one close to you.3.Make use of household items: Use cat litter or old coffee grounds to dispose medications if other options arenot available. Mix your drugs with these household products, seal them in an airtight container andthrow it into the garbage. Call [facility]: [phone] to be sure your drugs can be [...] aware that I should contact my doctor. Patient/Resident Advisor Signature: Date/Time: Relationship to Patient: Witness Name/Signature: Date/Time: [facility] [id number] Miscellaneous Notes* Telephone Encounter - Dolores Tan [...] you. Dolores Tan LPN documented in this encounterVan [facility] Hospital06-17-2022 History of Present illness Narrative* Kenneth Saldaña, PhD - 03/22/2022 8:50 AM EDT Images from the original note were not included. Kenneth Saldaña, Ph.D. 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 FACE TO FACE TIME WITH CLIENT/FAMILY: Start Time: 9:52 AM Stop Time: 11:23 AM PROCEDURES PARTICIPANTS OTHER THAN CLIENT: spouse SURVEYS, RATING SCALES, TESTS, & REPORTS USED: BROAD BAND: Adult Self Report for ages 18-59 NARROW BAND: ADHD Rating Scale-IV, Potential Stressors, Strengths and Difficulties, Wender-ReimherrAdult Attention Deficit Disorder Scale PSYCHOLOGICAL: Medical record [...] appropriate course of action. -Using a behavioral elementary instructional coach to assist to schedule and structure each day in order to allow for maximum accomplishment may be helpful. -Aiden may consider completing incomplete projects that have accrued over a number of months oreven years by selecting one at a time and working in cooperation with a behavioral elementary instructional coach. When incomplete projects are accounted for [...] way to support work completion. ORGANIZATIONAL STRATEGIES: TAB CUTTER/EXISTENCE SYSTEM -An incomplete project is any project that one's mind goes back to. This may occur as a thought that repeatedly pops up or intrudes on one's attention during the course of the day. Completing projects eliminates this intrusion to free attention and relieves the anxiety associated with leaving things unfinished. -Developing and using an existence-system, such as an electronic construction scheduler, daily environmental restoration planner, or other procedure that keeps projects [...] and month is likely to be helpful. Outlook tasks for the day may be checking [...] be accessed in various websites such as [employer] website. -[email or web address]/Support/Virtual-[email or web address].aspx ADDITIONAL SYMPTOMS, FUNCTIONING LEVEL, AND COMMENTS: PURPOSE [...] may contain confidential, privileged information protected by Retail Commission Sales Associate, Peer Review and Risk Management. Report privileges as outlined in [place] Revised Code Sections 2317.02 (B) (1), 2305.24, 2305.25- 2300.253. This report was produced in part using voice recognition software and, as a result, may contain spelling, grammar, punctuation, and other errors despite proofreading. The interpretation included in this report is derived from direct observation, clinical interview, review of rating scales, and a review of test data. 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 Notes now mainly pain is worse with [...] 2022 TIME: 10:15 AM documented in this encounterVan [facility]ert [facility] Hospital02-26-2021 History of Present illness Narrative* Bryce [...] 01, 2020 4:35 PM documented in this encounterVan Wert County Hospital02-17-2015 History of Past illness Narrative* Problem Noted Date Resolved Date Overweight (BMI 25.0-29.9) 11/22/201405/24 Last Assessment & Plan: Patient was started on adipex she did not tolerate it, It gave her palpitations, dizziness and dry mouth and sleeplessness. She had so much thumping of the heart. She has no family support. documented as of this encounter (statuses as of 01/11/2022) [facility] of Past illness Narrative* Problem Noted Date Resolved Date Overweight (BMI 25.0-29.9) 11/22/201405/24 Last Assessment & Plan: Patient was started on adipex she did not tolerate it, It gave her palpitations, dizziness and dry mouth and sleeplessness. She had so much thumping of the heart. She has no family support. documented as of this encounter (statuses as of 03/22/2022) [facility] of Past illness Narrative* Problem Noted Date Resolved Date Overweight (BMI 25.0-29.9) 11/22/201405/24 Last Assessment & Plan: Patient was started on adipex she did not tolerate it, It gave her palpitations, dizziness and dry mouth and sleeplessness. She had so much thumping of the heart. She has no family support. documented as of this encounter (statuses as of 04/22/2022) [facility] of Past illness Narrative* Problem Noted Date Resolved Date Overweight (BMI 25.0-29.9) 11/22/201405/24 Last Assessment & Plan: Patient was started on adipex she did not tolerate it, It gave her palpitations, dizziness and dry mouth and sleeplessness. She had so much thumping of the heart. She has no family support. documented as of this encounter (statuses as of 06/05/2022) [facility] of [facility] Narrative* Problem Noted Date Resolved Date Overweight (BMI 25.0-29.9) 11/22/201405/24 Last Assessment & Plan: Patient was started on adipex she did not tolerate it, It gave her palpitations, dizziness and dry mouth and sleeplessness. She had so much thumping of the heart. She has no family support. documented as of this encounter (statuses as of 06/19/2022) [facility] of [facility] illness Narrative* Problem Noted Date Resolved Date Overweight (BMI 25.0-29.9) 11/22/201405/24 Last Assessment & Plan: Patient was started on adipex she did not tolerate it, It gave her palpitations, dizziness and dry mouth and sleeplessness. She had so much thumping of the heart. She has no family support. documented as of this encounter (statuses as of 09/09/2022) [facility] of [facility] Narrative* Problem Noted Date Resolved Date Overweight (BMI 25.0-29.9) 11/22/201405/24 Last Assessment & Plan: Patient was started on adipex she did not tolerate it, It gave her palpitations, dizziness and dry mouth and sleeplessness. She had so much thumping of the heart. She has no family support. documented as of this encounter (statuses as of 09/19/2022) [facility] Narrative* Problem Noted Date Resolved Date Overweight (BMI 25.0-29.9) 11/22/201405/24 Last Assessment & Plan: Patient was started on adipex she did not tolerate it, It gave her palpitations, dizziness and dry mouth and sleeplessness. She had so much thumping of the heart. She has no family support. documented as of this encounter (statuses as of 11/01/2022) [facility] Narrative* Problem Noted Date Resolved Date Overweight (BMI 25.0-29.9) 11/22/201405/24 Last Assessment & Plan: Patient was started on adipex she did not tolerate it, It gave her palpitations, dizziness and dry mouth and sleeplessness. She had so much thumping of the heart. She has no family support. documented as of this encounter (statuses as of 01/23/2023) [facility] Narrative* Problem Noted Date Resolved Date Overweight (BMI 25.0-29.9) 11/22/201405/24 Last Assessment & Plan: Patient was started on adipex she did not tolerate it, It gave her palpitations, dizziness and dry mouth and sleeplessness. She had so much thumping of the heart. She has no family support. documented as of this encounter (statuses as of 01/23/2023) [facility] Narrative* Problem Noted Date Resolved Date Overweight (BMI 25.0-29.9) 11/22/201405/24 Last Assessment & Plan: Patient was started on adipex she did not tolerate it, It gave her palpitations, dizziness and dry mouth and sleeplessness. She had so much thumping of the heart. She has no family support. documented as of this encounter (statuses as of 01/25/2023) [facility] Narrative* Problem Noted Date Resolved Date Overweight (BMI 25.0-29.9) 11/22/201405/24 Last Assessment & Plan: Patient was started on adipex she did not tolerate it, It gave her palpitations, dizziness and dry mouth and sleeplessness. She had so much thumping of the heart. She has no family support. documented as of this encounter (statuses as of 04/03/2023) [facility] Narrative* Problem [...] of this encounter (statuses as of 05/14/2023) [facility] Narrative* Problem [...] of this encounter (statuses as of 05/22/2023) [facility] Narrative* Problem [...] of this encounter (statuses as of 05/28/2023) [facility] Narrative* Problem [...] of this encounter (statuses as of 05/29/2023) [facility] Narrative* Problem [...] of this encounter (statuses as of 06/06/2023) [facility] Narrative* Problem [...] of this encounter (statuses as of 06/25/2023) [facility] Narrative* Problem [...] of this encounter (statuses as of 07/12/2023) [facility] Narrative* Problem [...] of this encounter (statuses as of 07/15/2023) [facility] Narrative* Problem [...] of this encounter (statuses as of 07/18/2023) [facility] Narrative* Problem [...] of this encounter (statuses as of 07/29/2023) [address]17-2015 History of Past illness Narrative* Problem [...] of this encounter (statuses as of 08/05/2023) [facility] Narrative* Problem [...] of this encounter (statuses as of 08/11/2023) [facility] Narrative* Problem [...] of this encounter (statuses as of 09/07/2023) [facility] Narrative* Problem [...] of this encounter (statuses as of 09/09/2023) [facility] Narrative* Problem [...] of this encounter (statuses as of 09/25/2023) [facility] Narrative* Problem [...] of this encounter (statuses as of 11/11/2023) [facility] Narr[facility]* Problem [...] of this encounter (statuses as of 11/18/2023) [facility] Narr[facility]* Problem [...] of this encounter (statuses as of 11/18/2023) [facility] Narr[facility]* Problem [...] of this encounter (statuses as of 11/19/2023) [facility] Narr[facility]* Problem [...] of this encounter (statuses as of 11/19/2023) [facility] Narrative* Problem [...] of this encounter (statuses as of 11/25/2023) [facility] Narrative* Problem [...] of this encounter (statuses as of 12/03/2023) [facility] Narrative* Problem [...] of this encounter (statuses as of 12/03/2023) [facility] Narr[facility]* Problem [...] of this encounter (statuses as of 12/04/2023) [facility] Narr[facility]* Problem [...] of this encounter (statuses as of 12/05/2023) [facility]* Problem [...] of this encounter (statuses as of 12/10/2023) [facility]* Problem [...] of this encounter (statuses as of 12/12/2023) [facility]* Problem [...] of this encounter (statuses as of 12/16/2023) [facility]* Problem [...] of this encounter (statuses as of 12/17/2023) [facility]* Problem [...] of this encounter (statuses as of 12/18/2023) [facility]* Problem [...] of this encounter (statuses as of 12/30/2023) [facility]* Problem [...] of this encounter (statuses as of 01/12/2024) [facility]02-[facility]2015 History of Past illness Narrative* Problem [...] of this encounter (statuses as of 01/20/2024) [facility] No data available for this section [facility] Evaluation note* Diagnosis Thoracic back pain, unspecified back pain laterality, unspecified chronicity- Primary [facility] Diagnosis Attention deficit hyperactivity disorder (ADHD), unspecified ADHD type- Primary Major depressive disorder, recurrent episode, in partial remission with anxious distress (HCC) [facility] Diagnosis Anxiety and depression- Primary Dysthymic disorder Attention deficit Attention or concentration deficit Panic attacks Panic disorder without agoraphobia [facility] Diagnosis URI, acute- Primary Acute upper respiratory infections of unspecified site [facility]* Diagnosis Anxiety and depression- Primary Dysthymic disorder Dizziness Dizziness and giddiness Numbness and tingling Disturbance of skin sensation [facility] Diagnosis Irregular menses- Primary Irregular menstrual cycle Chest pain, unspecified type documented in this encounter [facility] note* Diagnosis Patient left without being seen- Primary Surgical or other procedure not carried out because of patient's decision documented in this encounter [facility] noteNo assessment information availableWUniversity Hospitals [facility] Work Phone: [facility]* Diagnosis Panic attack- Primary Panic disorder without agoraphobia documented in this encounter [facility] note* Diagnosis Breast pain- Primary Mastodynia Anxiety Anxiety state, unspecified Panic attacks Panic disorder without agoraphobia Other fatigue Vitamin D deficiency Unspecified vitamin D deficiency Encounter for therapeutic drug monitoring documented in this encounter [facility] note* Diagnosis Breast pain- Primary Mastodynia [facility]* Diagnosis Pelvic pain- Primary documented in this encounter [facility] note* Diagnosis Positive urine test- Primary examination or test, positive result documented in this encounter [facility] note* Diagnosis URI, acute- Primary Acute upper respiratory infections of unspecified site documented in this encounter [facility] note* Diagnosis with uncertain dates in first trimester- Primary 9 weeks gestation of state, incidental Encounter for supervision of normal in multigravida in first trimester documented [facility]* Diagnosis 9 weeks gestation of - Primary state, incidental Encounter for supervision of normal in multigravida in first trimester Screening for cervical cancer Screening for malignant neoplasm of the cervix documented in this encounter [facility] note* Diagnosis 12 weeks gestation of - Primary state, incidental Encounter for supervision of normal in multigravida in first trimester Constipation, unspecified constipation type documented in this encounter [facility] note* Diagnosis 17 weeks gestation of - Primary state, incidental Encounter for supervision of other normal in second trimester [facility]* Diagnosis Sciatica, right side- Primary documented in this encounter [facility] note* Diagnosis Fatigue, unspecified type- Primary Headache, unspecified headache type documented in this encounter [facility] note* Diagnosis Encounter for supervision of other normal in second trimester- Primary 27 weeks gestation of state, incidental Heartburn during , antepartum Request for sterilization documented in this encounter [facility] note* Diagnosis Abnormal maternal glucose tolerance, antepartum- Primary [facility] Diagnosis Abnormal maternal glucose tolerance, antepartum [facility]* Diagnosis Dietary counseling- Primary Dietary surveillance and counseling Abnormal maternal glucose tolerance, antepartum documented in this encounter [facility] note* Diagnosis 29 weeks gestation of - Primary state, incidental Abnormal glucose in , antepartum Abnormal maternal glucose tolerance, antepartum Situational depression Adjustment disorder with depressed mood Supervision of other high risk pregnancies, first trimester documented in this encounter [facility] note* Diagnosis Diet controlled gestational diabetes mellitus (GDM) in third trimester- Primary 31 weeks gestation of state, incidental [facility] Diagnosis 31 weeks gestation of - Primary state, incidental Diet controlled gestational diabetes mellitus (GDM) in third trimester Supervision of other high risk pregnancies, first trimester [facility]* Diagnosis Diet controlled gestational diabetes mellitus (GDM) in third trimester- Primary Dietary counseling Dietary surveillance and counseling documented in this encounter [facility] note* Diagnosis 35 weeks gestation of - Primary state, incidental Diet controlled gestational diabetes mellitus (GDM) in third trimester Encounter for supervision of other normal in second trimester 27 weeks gestation of state, incidental Heartburn during , antepartum [facility] Diagnosis 36 weeks gestation of - Primary state, incidental Diet controlled gestational diabetes mellitus (GDM) in third trimester Encounter for supervision of other normal in second trimester [facility]* Diagnosis Encounter for ultrasound to check growth- Primary Encounter for routine screening for malformation using ultrasonics Diet controlled gestational diabetes mellitus (GDM) in third trimester 38 weeks gestation of state, incidental [facility]* Diagnosis Supervision of high risk in third trimester- Primary Unspecified high-risk Diet controlled gestational diabetes mellitus (GDM) in third trimester 38 weeks gestation of state, incidental [facility]* Diagnosis Onset Date Resolution Status Active labor at term acute Anxiety acute Care and examination of lactating mother acute Depression acute GDM, class A1 acute History of depression acute History of hemorrhage acute SROM (spontaneous rupture of membranes) acute Vaginal delivery acute [facility] Work Phone: Evaluation note* Diagnosis Retained placenta without hemorrhage, condition or complication- Primary documented in this encounter [facility] note* Diagnosis Retained placenta without hemorrhage, condition or complication- Primary endometritis Puerperal endometritis, condition or complication documented in this encounter [facility] note* Diagnosis Retained products of conception w/o hemorrhage but w other compl- Primary Retained portions of placenta or membranes, without hemorrhage, condition or complication endometritis Puerperal endometritis, condition or complication documented in this encounter [facility] note* Diagnosis state- Primary Routine follow-up History of gestational diabetes Personal history of gestational diabetes documented in this encounter [facility] note* Diagnosis care and examination- Primary Routine follow-up Request for sterilization documented in this encounter [facility] note* Diagnosis 35 weeks gestation of state, incidental documented in this encounter [facility] note* Diagnosis Sternal pain- Primary Chest pain, unspecified Palpitations Family history of early CAD Family history of ischemic heart disease Gastroesophageal reflux disease, unspecified whether esophagitis present documented in this encounter [facility] note* Diagnosis Itch- Primary Unspecified pruritic disorder documented in this encounter [facility] note* Diagnosis Local reaction to bee sting, accidental or unintentional, initial encounter- Primary documented in this encounter [facility] note* Diagnosis Eustachian tube dysfunction- Primary Dysfunction of Eustachian tube Overweight Overweight (BMI 25.0-29.9) Overweight Back ache Backache, unspecified Routine Papanicolaou smear- Primary Screening for malignant neoplasm of the cervix Backache Backache, unspecified Back ache Backache, unspecified Gastroesophageal reflux disease, unspecified whether esophagitis present- Primary Upper abdominal pain Abdominal pain, other specified site Sternal pain Chest pain, unspecified Palpitations documented in this encounter [facility] note* Diagnosis Eustachian tube dysfunction- Primary Dysfunction of Eustachian tube Overweight Overweight (BMI 25.0-29.9) Overweight Back ache Backache, unspecified Routine Papanicolaou smear- Primary Screening for malignant neoplasm of the cervix Backache Backache, unspecified Back ache Backache, unspecified Annual physical exam- Primary Routine general medical examination at a health care facility documented in this encounter [facility] note* Diagnosis Eustachian tube dysfunction- Primary Dysfunction of Eustachian tube Overweight Overweight (BMI 25.0-29.9) Overweight Back ache Backache, unspecified Routine Papanicolaou smear- Primary Screening for malignant neoplasm of the cervix Backache Backache, unspecified Back ache Backache, unspecified Gastroesophageal reflux disease, unspecified whether esophagitis present Upper abdominal pain Abdominal pain, other specified site documented [facility] this encounter [facility]* Diagnosis Eustachian tube dysfunction- Primary Dysfunction [...] other specified site documented [facility]* Diagnosis Eustachian tube dysfunction- Primary Dysfunction of Eustachian tube Overweight Overweight (BMI 25.0-29.9) Overweight Back ache Backache, unspecified Routine Papanicolaou smear- Primary Screening for malignant neoplasm of the cervix Backache Backache, unspecified Back ache Backache, unspecified Gastroesophageal reflux disease, unspecified whether esophagitis present Upper abdominal pain Abdominal pain, other specified site documented [facility] this [facility]* Diagnosis Eustachian tube dysfunction- Primary Dysfunction of Eustachian tube Overweight Overweight (BMI 25.0-29.9) Overweight Back ache Backache, unspecified Routine Papanicolaou smear- Primary Screening for malignant neoplasm of the cervix Backache Backache, unspecified Back ache Backache, unspecified Gastroesophageal reflux disease, unspecified whether esophagitis present Upper abdominal pain Abdominal pain, other specified site documented [facility]* Diagnosis Eustachian tube dysfunction- Primary Dysfunction of Eustachian tube Overweight Overweight (BMI 25.0-29.9) Overweight Back ache Backache, unspecified Routine Papanicolaou smear- Primary Screening for malignant neoplasm of the cervix Backache Backache, unspecified Back ache Backache, unspecified Gastroesophageal reflux disease with esophagitis without hemorrhage- Primary Hiatal hernia Diaphragmatic hernia without mention of obstruction or gangrene documented in this encounter [facility] note* Diagnosis Eustachian tube dysfunction- Primary Dysfunction of Eustachian tube Overweight Overweight (BMI 25.0-29.9) Overweight Back ache Backache, unspecified Routine Papanicolaou smear- Primary Screening for malignant neoplasm of the cervix Backache Backache, unspecified Back ache Backache, unspecified Rectal bleeding- Primary Hemorrhage of rectum and anus Infectious colitis Infectious colitis, enteritis, and gastroenteritis Abdominal cramping Abdominal pain, unspecified site [facility]* Diagnosis Eustachian tube dysfunction- Primary Dysfunction of Eustachian tube Overweight Overweight (BMI 25.0-29.9) Overweight Back ache Backache, unspecified Routine Papanicolaou smear- Primary Screening for malignant neoplasm of the cervix Backache Backache, unspecified Back ache Backache, unspecified Gastroesophageal reflux disease, unspecified whether esophagitis present Upper abdominal pain Abdominal pain, other specified site [facility] Diagnosis Eustachian tube dysfunction- Primary Dysfunction of Eustachian tube Overweight Overweight (BMI 25.0-29.9) Overweight Back ache Backache, unspecified Routine Papanicolaou smear- Primary Screening for malignant neoplasm of the cervix Backache Backache, unspecified Back ache Backache, unspecified Pain- Primary Generalized pain Pain Generalized pain documented [facility]* Diagnosis Eustachian tube dysfunction- Primary Dysfunction of Eustachian tube Overweight Overweight (BMI 25.0-29.9) Overweight Back ache Backache, unspecified Routine Papanicolaou smear- Primary Screening for malignant neoplasm of the cervix Backache Backache, unspecified Back ache Backache, unspecified Pain Generalized pain documented [facility] this [facility]* Diagnosis Eustachian tube dysfunction- Primary Dysfunction of Eustachian tube Overweight Overweight (BMI 25.0-29.9) Overweight Back ache Backache, unspecified Routine Papanicolaou smear- Primary Screening for malignant neoplasm of the cervix Backache Backache, unspecified Back ache Backache, unspecified Viral illness- Primary Unspecified viral infection, in conditions classified elsewhere and of unspecified site documented [facility]* Diagnosis Eustachian tube dysfunction- Primary Dysfunction of Eustachian tube Overweight Overweight (BMI 25.0-29.9) Overweight Back ache Backache, unspecified Routine Papanicolaou smear- Primary Screening for malignant neoplasm of the cervix Backache Backache, unspecified Back ache Backache, unspecified 35 weeks gestation of state, incidental [facility] Diagnosis Eustachian tube dysfunction- Primary Dysfunction [...] from mental factors [facility] Diagnosis Eustachian tube dysfunction- Primary Dysfunction of Eustachian tube Overweight Overweight (BMI 25.0-29.9) Overweight Back ache Backache, unspecified Routine Papanicolaou smear- Primary Screening for malignant neoplasm of the cervix Backache Backache, unspecified Back ache Backache, unspecified Dyspepsia Dyspepsia and other specified disorders of function of stomach documented in this encounter [facility] note* Diagnosis Eustachian tube dysfunction- Primary Dysfunction of Eustachian tube Overweight Overweight (BMI 25.0-29.9) Overweight Back ache Backache, unspecified Routine Papanicolaou smear- Primary Screening for malignant neoplasm of the cervix Backache Backache, unspecified Back ache Backache, unspecified Annual physical exam- Primary Routine general medical examination at a health care facility documented in this encounter [facility] note* Diagnosis Eustachian tube dysfunction- Primary Dysfunction of Eustachian tube Overweight Overweight (BMI 25.0-29.9) Overweight Back ache Backache, unspecified Routine Papanicolaou smear- Primary Screening for malignant neoplasm of the cervix Backache Backache, unspecified Back ache Backache, unspecified OPENED IN ERROR- Primary To allow closing an encounter opened in error (used in SmartSet) documented in this encounter [facility] note* Diagnosis Eustachian tube dysfunction- Primary Dysfunction of Eustachian tube Overweight Overweight (BMI 25.0-29.9) Overweight Back ache Backache, unspecified Routine Papanicolaou smear- Primary Screening for malignant neoplasm of the cervix Backache Backache, unspecified Back ache Backache, unspecified Chronic right-sided thoracic back pain- Primary Stabbing pain Pain in limb 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 [facility] Diagnosis Eustachian tube dysfunction- Primary Dysfunction of Eustachian tube Overweight Overweight (BMI 25.0-29.9) Overweight Back ache Backache, unspecified Routine Papanicolaou smear- Primary Screening for malignant neoplasm of the cervix Backache Backache, unspecified Back ache Backache, unspecified Annual physical exam- Primary Routine general medical examination at a health care facility Primary insomnia Persistent disorder of initiating or maintaining sleep [facility] Additional Instructions Thank you for [...] care physician for further outpatient evaluation and management.[facility] Work Phone: Hospital Discharge instructions Additional Instructions Your workup showed no sign of of heart damage blood clot dissection or infection. Please follow-up with your family doctor to discuss further testing/repeat evaluation and/or referral if symptoms persist. Return to the ER should you have any further concernsWUniversity [facility]als [facility] Work Phone: Hospital Discharge instructionsAdditional Instructions Follow-up with your doctor in outpatient setting. Return with worsening symptoms or concerns. Your blood work did not show any acute findings and your CT was normal. Use prescriptions as prescribed and return with worsening symptoms or any concernsWUniversity [facility]als [facility] Work Phone: Note* LEXY ZAMUDIO DO: SIGN, VERIFY Event Display: EKG [ED AOH] - CV Authored Date: [facility] Reason for referral (narrative)* Diagnostic Procedure Only (Routine) - Authorized Specialty Diagnoses / Procedures Referred By Contac t Referred To Contact [facility] Diagnoses Breast pain Procedures STEVE DIAGNOSTIC LEFT DIAGNOSTIC MAMMOGRAPHY COMPUTER-AIDED DETCJ UNI Liss Vaca APRN.[employer] [address] [place] [address] [facility] [address] [place] [address] Referral ID Status Reason Start Date Expiration Date Visits Requested Visits Authorized [id number] Authorized Auto-Generat ed Referral 05/13/2023 06/11/2024 1 1 * Diagnostic Procedure Only (Routine) - Authorized Specialty Diagnoses / Procedures Referred By Contac t Referred To Contact [facility] Diagnoses Breast pain Procedures US BREAST LTD LEFT US BREAST UNI REAL TIME WITH IMAGE LIMITED Liss Vaca APRN.[employer] [address] [place] [id number] [facility] [address] [place] [address] Referral ID Status Reason Start Date Expiration Date Visits Requested Visits Authorized [id number] Authorized Auto-Generat ed Referral 05/13/2023 06/11/2024 1 1 [facility] for referral (narrative)* Diagnostic Procedure Only (Routine) - Authorized Specialty Diagnoses / Procedures Referred By Dlac t Referred To Contact [facility] Diagnoses Breast pain Procedures STEVE DIAGNOSTIC BILATERAL DIAGNOSTIC MAMMOGRAPHY COMPUTER-AIDED DETCJ BI Liss Vaca APRN.CNP [address] [place] [address] [facility] [address] [place] [address] Referral ID Status Reason Start Date Expiration Date Visits Requested Visits Authorized [id number] Authorized Auto-Generat ed Referral 05/21/2023 06/19/2024 1 1 [facility] for referral (narrative)* Diagnostic Procedure Only (Routine) - Pending Review Specialty Diagnoses / Procedures Referred By Victorino t Referred To Contact [facility] Diagnoses 9 weeks gestation of Encounter for supervision of normal in multigravida in first trimester Procedures NUCHAL TRANSLUCENCY WHI US NUCHAL TRANSLUCENCY 1ST GESTATION Shu Reeves APRN.CNM [address] [place] [place] [address] [facility] [address] [place] [id number] Referral ID Status Reason Start Date Expiration Date Visits Requested Visits Authorized [id number] Pending Review Auto-Generat ed Referral 07/11/2023 07/10/2024 1 1 * Diagnostic Procedure Only (Routine) - Pending Review Specialty Diagnoses / Procedures Referred By Contac t Referred To Contact [facility] Diagnoses 9 weeks gestation of Encounter for supervision of normal in multigravida in first trimester Procedures OBSTETRIC ULTRASOUND WHI US PREG UTERUS AFTER 1ST TRIMEST GESTATION Shu Reeves APRN.CNM [address] [place] [place] [address] [facility] [address] [place] [address] Referral ID Status Reason Start Date Expiration Date Visits Requested Visits Authorized [id number] Pending Review Auto-Generat ed Referral 07/11/2023 07/10/2024 1 1 [facility] for referral (narrative)* Diagnostic Procedure Only (Routine) - Authorized Specialty Diagnoses / Procedures Referred By Contac t Referred To Contact [facility] Diagnoses 29 weeks gestation of Procedures OBSTETRIC ULTRASOUND WHI US PREG UTERUS AFTER 1ST TRIMEST GESTATION Shu Reeves APRN.CNM [address] [place] [address] [address] Referral ID Status Reason Start Date Expiration Date Visits Requested Visits Authorized [id number] Authorized Auto-Generat ed Referral 12/01/2023 11/30/2024 1 1 [facility] for referral (narrative)* Diagnostic Procedure Only (Routine) - Authorized Specialty Diagnoses / Procedures Referred By Victorino t Referred To Contact [facility] Diagnoses 31 weeks gestation of Diet controlled gestational diabetes mellitus (GDM) in third trimester Supervision of other high risk pregnancies, first trimester Procedures OBSTETRIC ULTRASOUND WHI US PREG UTERUS AFTER 1ST TRIMEST GESTATION Demetra Kessler MD [address] [place] [address] [facility] [address] [place] [address] Referral ID Status Reason Start Date Expiration Date Visits Requested Visits Authorized [id number] Authorized Auto-Generat ed Referral 12/15/2023 12/14/2024 1 1 [facility] for referral (narrative)* Outpatient Procedure (Routine) - New Request Specialty Diagnoses / Procedures Referred By Victorino bennett Referred To Contact [facility]ULAR [facility] Diagnoses Sternal pain Palpitations Family history of early CAD Procedures ECG COMPLETE ECG ROUTINE ECG W/LEAST 12 LDS W/I&R Darya Quiñones APRN.[employer] [address] [place] [address] [id number] [place] [address] Referral ID Status Reason Start Date Expiration Date Visits Requested Visits Authorized [id number] New Request Auto-Generat ed Referral 04/28/2024 04/28/2025 1 1 * Outpatient Procedure (Routine) - Additional Clinical Info Needed Specialty Diagnoses / Procedures Referred By Victorino t Referred To Contact [facility] Diagnoses Sternal pain Palpitations Family history of early CAD Procedures ECHO ECHO TTHRC R-T 2D W/WOM-MODE COMPL SPEC&COLR D Darya Quiñones APRN.[employer] [address] [place] [address] [facility] [address] [place] [address] Referral ID Status Reason Start Date Expiration Date Visits Requested Visits Authorized [id number] Additional Clinical Info Needed Auto-Generat ed Referral 04/28/2024 04/28/2025 1 1 [facility] for referral (narrative)* Outpatient Procedure (Routine) - Authorized Specialty Diagnoses / Procedures Referred By Contac t Referred To Contact [facility] Diagnoses Gastroesophageal reflux disease, unspecified whether esophagitis present Upper abdominal pain Procedures EGD DIAGNOSTIC ESOPHAGOGASTRODUODENOSC OPY TRANSORAL DIAGNOSTIC Jose Delgado APRN.[employer] [address] [place] [address] [facility] [address] [place] [address] Referral ID Status Reason Start Date Expiration Date Visits Requested Visits Authorized [id number] Authorized Auto-Generat ed Referral 07/29/2025 1 1 [facility] for referral (narrative)* Outpatient Procedure (Routine) - Closed Specialty Diagnoses / Procedures Referred By Contac t Referred To Contact [facility] Diagnoses Gastroesophageal reflux disease, unspecified whether esophagitis present Upper abdominal pain Procedures EGD DIAGNOSTIC ESOPHAGOGASTRODUODENOSC OPY TRANSORAL DIAGNOSTIC Jose Delgado APRN.[employer] [address] [place] [address] [facility] [address] [place] [address] Referral ID Status Reason Start Date Expiration Date V isits Requested Visits Authorized [id number] Closed Auto-Generate d Referral 07/29/2024 07/29/2025 1 1 [facility] for referral (narrative)* Diagnostic Procedure Only (Urgent) - Closed Specialty Diagnoses / Procedures Referred By Contac t Referred To Contact XR IMAGING Diagnoses Pain Procedures XR FOOT GENERAL 3V AP/LAT/OBL RIGHT RADEX FOOT COMPLETE MINIMUM 3 VIEWS Abel Thornton APRN.[employer] [address] [place] [address] [place] [address] Referral ID Status Reason Start Date Expiration Date V isits Requested Visits Authorized [id number] Closed Auto-Generate d Referral 10/13/2024 11/12/2025 1 1 [facility] Diagnostic Procedure Only (Urgent) - Closed Specialty Diagnoses / Procedures Referred By Contac t Referred To Contact XR IMAGING Diagnoses Pain Procedures XR FOOT GENERAL 3V AP/LAT/OBL RIGHT RADEX FOOT COMPLETE MINIMUM 3 VIEWS Abel Thornton APRN.[employer] [address] [place] [address] [place] [address] Referral ID Status Reason Start Date Expiration Date V isits Requested Visits Authorized [id number] Closed Auto-Generate d Referral 10/13/2024 11/12/2025 1 1 [facility]No reason for referral information availableWUniversity [facility]als [facility] Work Phone: Reason for visit Narrative* Diagnostic Procedure Only (Routine) - Closed Specialty Diagnoses / Procedures Referred By Contac t Referred To Contact [facility] Diagnoses 29 weeks gestation of Procedures OBSTETRIC ULTRASOUND I US PREG UTERUS AFTER 1ST TRIMEST GESTATION Shu Reeves APRN.CNJim [address] [place] [address] [facility] [address] [place] [address] Referral ID Status Reason Start Date Expiration Date V isits Requested Visits Authorized [id number] Closed Auto-Generate d Referral 12/01/2023 11/30/2024 1 1 [facility] N[facility] Outpatient Procedure (Routine) - Closed Specialty Diagnoses / Procedures Referred By Contac t Referred To Contact [facility] Diagnoses Gastroesophageal reflux disease, unspecified whether esophagitis present Upper abdominal pain Procedures EGD DIAGNOSTIC ESOPHAGOGASTRODUODENOSC OPY TRANSORAL DIAGNOSTIC Jose Delgado, SENIOR PHYSICIAN.[employer] [address] [facility] [place] [address] [facility] [address] [place] [address] Referral ID Status Reason Start Date Expiration Date V isits Requested Visits Authorized [id number] Closed Auto-Generate d Referral 07/29/2024 07/29/2025 1 1 [facility] Diagnostic Procedure Only (Urgent) - Closed Specialty Diagnoses / Procedures Referred By Contac t Referred To Contact XR IMAGING Diagnoses Pain Procedures XR FOOT GENERAL 3V AP/LAT/OBL RIGHT RADEX FOOT COMPLETE MINIMUM 3 VIEWS Abel Thornton SENIOR PHYSICIAN.[employer] [address] [place] [address] [place] [address] Referral ID Status Reason Start Date Expiration Date V isits Requested Visits Authorized [id number] Closed Auto-Generate d Referral 10/13/2024 11/12/2025 1 1 [facility] Summary Purpose Family History No Family History Records FoundNo Family History Records FoundNo Family History Records FoundNo Family History Records Found Advance Directives No Advanced Directives Records Found Advance Directive Response Recorded Date/ Time Living Will No November 01 8:52pm Power of Sign Language Translator No November 01, 2021 8:52pm Advance Directive Response Recorded Date/ Time Living Will No August 07 4:09pm Power of Sign Language Translator No August 07, 2023 4:09pm Advance Directive Response Recorded Date/ Time Living Will No December 13, 2023 11:32pm Power of Sign Language Translator No December 12 11:32pm Advance Directive Response Recorded Date/ Time Living Will No February 02, 2024 10:41pm Power of Sign Language Translator No February 01 10:41pm Advance Directive Response Recorded Date/ Time Do you have a Healthcare Power of Sign Language Translator? No March 24, 2025 10:14pm Living Will No December 06, 2024 9:53pm Do you have a Healthcare Power of Sign Language Translator? No December 06, 2024 9:53pm Advance Directive Response Recorded Date/ Time Do you have a Healthcare Power of Sign Language Translator? No March 24, 2025 10:14pm Advance Directive Response Recorded Date/ Time Do you have a Healthcare Power of Sign Language Translator? No March 24, 2025 10:14pm Do you have a Healthcare Power of Sign Language Translator? No April 14, 2025 7:26pm Health Concerns Infection Onset Date Last Indicated [...] CC Education - COMMON 07/11/2023 Education - [place] 07/11/2023 Chief Complaint and Reason for Visit Chief Complaint BODY ACHES Chief Complaint chest pain Chief Complaint chest pain VAG Reason for Visit Active labor at term Anxiety Care and examination of lactating mother Depression GDM, class A1 History of depression History of hemorrhage SROM (spontaneous rupture of membranes) Vaginal delivery Chief Complaint Admit Date leg pain December 06, 2024 8:21 pm CHEST PAIN March 24, 2025 10:1 3pm Chief Complaint Admit Date CHEST PAIN March 24, 2025 10:1 3pm ABD PAIN April 07, 2025 8:28a m Chief Complaint Admit Date CHEST PAIN March 24, 2025 10:1 3pm ABD PAIN April 07, 2025 8:28a m ABD PAIN April 14, 2025 5:38 pm Reason for Referral Specialty Diagnoses / Procedures Referred By Victorino bennett Referred To Contact Gastroenterology Diagnoses Gastroesophageal reflux disease, unspecified whether esophagitis present Upper abdominal pain Procedures CONSULT TO GASTROENTEROLOGY OFFICE/OUTPATIENT [facility] HIGH MDM 60 MINUTES Darya Quiñones APRN.[employer] [address] [place] [address] Referral ID Status Reason Start Date Expiration Date Visits Requested Visits Authorized [id number] Authorized PCP Requested Referral 06/09/2024 06/09/2025 1 1 Specialty Diagnoses / Procedures Referred By Victorino bennett Referred To Contact Diagnoses Abnormal maternal glucose tolerance, antepartum Procedures CONSULT TO GESTATIONAL/ CORPORATE WEBMASTER OFFICE/OUTPATIENT NEW HIGH MDM 60 MINUTES Manuela Luz MD [address] [place] [address] Referral ID Status Reason Start Date Expiration Date V isits Requested Visits Authorized [id number] Closed PCP Requested Referral Auto-Generated Referral 11/19/2023 11/18/2024 1 1 Specialty Diagnoses / Procedures Referred By Contac t Referred To Contact Nutrition Diagnoses Abnormal maternal glucose tolerance, antepartum Procedures CONSULT TO NUTRITION THERAPY MEDICAL NUTRITION ASSMT&IVNTJ INDIV EACH 15 [place] MEDICAL NUTRITION ASSMT&IVNTJ INDIV EACH 15 [place] MEDICAL NUTRITION ASSMT&IVNTJ INDIV EACH 15 [place] MEDICAL NUTRITION ASSMT&IVNTJ INDIV EACH 15 [place] Manuela Luz MD [address] [place] [address] Referral ID Status Reason Start Date Expiration Date Visits Requested Visits Authorized [id number] Authorized PCP Requested Referral 11/19/2023 11/18/2024 1 1 Additional Source Comments Source Comments (unrecognize d section and content) In the event this informatio n is protected by the Federal Confidentiality of Alcohol and Drug Abuse Patient Records regulations: The Federal rules restrict any use of the information to criminally investigate or prosecute any alcohol or drug abuse patient.[facility] the event this information is protected by the Federal Confidentiality of Alcohol and Drug Abuse Patient Records regulations: The Federal rules restrict any use of the information to criminally investigate or prosecute any alcohol or drug abuse patient.[facility]In the event this information is protected by the Federal Confidentiality of Alcohol and Drug Abuse Patient Records regulations: The Federal rules restrict any use of the information to criminally investigate or prosecute any alcohol or drug abuse patient.[facility]In the event this information is protected by the Federal Confidentiality of Alcohol and Drug Abuse Patient Records regulations: The Federal rules restrict any use of the information to criminally investigate or prosecute any alcohol or drug abuse patient.[facility]In the event this information is protected by the Federal Confidentiality of Alcohol and Drug Abuse Patient Records regulations: The Federal rules restrict any use of the information to criminally investigate or prosecute any alcohol or drug abuse patient.[facility]In the event this information is protected by the Federal Confidentiality of Alcohol and Drug Abuse Patient Records regulations: The Federal rules restrict any use of the information to criminally investigate or prosecute any alcohol or drug abuse patient.[facility]In the event this information is protected by the Federal Confidentiality of Alcohol and Drug Abuse Patient Records regulations: The Federal rules restrict any use of the information to criminally investigate or prosecute any alcohol or drug abuse patient.[facility]In the event this information is protected by the Federal Confidentiality of Alcohol and Drug Abuse Patient Records regulations: The Federal rules restrict any use of the information to criminally investigate or prosecute any alcohol or drug abuse patient.[facility]In the event this information is protected by the Federal Confidentiality of Alcohol and Drug Abuse Patient Records regulations: The Federal rules restrict any use of the information to criminally investigate or prosecute any alcohol or drug abuse patient.[facility]In the event this information is protected by the Federal Confidentiality of Alcohol and Drug Abuse Patient Records regulations: The Federal rules restrict any use of the information to criminally investigate or prosecute any alcohol or drug abuse patient.[facility] HospitalIn the event this information is protected by the Federal Confidentiality of Alcohol and Drug Abuse Patient Records regulations: The Federal rules restrict any use of the information to criminally investigate or prosecute any alcohol or drug abuse patient.[facility]In the event this information is protected by the Federal Confidentiality of Alcohol and Drug Abuse Patient Records regulations: The Federal rules restrict any use of the information to criminally investigate or prosecute any alcohol or drug abuse patient.[facility]In the event this information is protected by the Federal Confidentiality of Alcohol and Drug Abuse Patient Records regulations: The Federal rules restrict any use of the information to criminally investigate or prosecute any alcohol or drug abuse patient.[facility]In the event this information is protected by the Federal Confidentiality of Alcohol and Drug Abuse Patient Records regulations: The Federal rules restrict any use of the information to criminally investigate or prosecute any alcohol or drug abuse patient.[facility]In the event this information is protected by the Federal Confidentiality of Alcohol and Drug Abuse Patient Records regulations: The Federal rules restrict any use of the information to criminally investigate or prosecute any alcohol or drug abuse patient.[facility]In the event this information is protected by the Federal Confidentiality of Alcohol and Drug Abuse Patient Records regulations: The Federal rules restrict any use of the information to criminally investigate or prosecute any alcohol or drug abuse patient.[facility]In the event this information is protected by the Federal Confidentiality of Alcohol and Drug Abuse Patient Records regulations: The Federal rules restrict any use of the information to criminally investigate or prosecute any alcohol or drug abuse patient.[facility] HospitalIn the event this information is protected by the Federal Confidentiality of Alcohol and Drug Abuse Patient Records regulations: The Federal rules restrict any use of the information to criminally investigate or prosecute any alcohol or drug abuse patient.[facility] HospitalIn the event this information is protected by the Federal Confidentiality of Alcohol and Drug Abuse Patient Records regulations: The Federal rules restrict any use of the information to criminally investigate or prosecute any alcohol or drug abuse patient.[facility] HospitalIn the event this information is protected by the Federal Confidentiality of Alcohol and Drug Abuse Patient Records regulations: The Federal rules restrict any use of the information to criminally investigate or prosecute any alcohol or drug abuse patient.[facility] HospitalIn the event this information is protected by the Federal Confidentiality of Alcohol and Drug Abuse Patient Records regulations: The Federal rules restrict any use of the information to criminally investigate or prosecute any alcohol or drug abuse patient.[facility]In the event this information is protected by the Federal Confidentiality of Alcohol and Drug Abuse Patient Records regulations: The Federal rules restrict any use of the information to criminally investigate or prosecute any alcohol or drug abuse patient.[facility]In the event this information is protected by the Federal Confidentiality of Alcohol and Drug Abuse Patient Records regulations: The Federal rules restrict any use of the information to criminally investigate or prosecute any alcohol or drug abuse patient.[facility]In the event this information is protected by the Federal Confidentiality of Alcohol and Drug Abuse Patient Records regulations: The Federal rules restrict any use of the information to criminally investigate or prosecute any alcohol or drug abuse patient.[facility]In the event this information is protected by the Federal Confidentiality of Alcohol and Drug Abuse Patient Records regulations: The Federal rules restrict any use of the information to criminally investigate or prosecute any alcohol or drug abuse patient.[facility]In the event this information is protected by the Federal Confidentiality of Alcohol and Drug Abuse Patient Records regulations: The Federal rules restrict any use of the information to criminally investigate or prosecute any alcohol or drug abuse patient.[facility] HospitalIn the event this information is protected by the Federal Confidentiality of Alcohol and Drug Abuse Patient Records regulations: The Federal rules restrict any use of the information to criminally investigate or prosecute any alcohol or drug abuse patient.[facility] HospitalIn the event this information is protected by the Federal Confidentiality of Alcohol and Drug Abuse Patient Records regulations: The Federal rules restrict any use of the information to criminally investigate or prosecute any alcohol or drug abuse patient.[facility] HospitalIn the event this information is protected by the Federal Confidentiality of Alcohol and Drug Abuse Patient Records regulations: The Federal rules restrict any use of the information to criminally investigate or prosecute any alcohol or drug abuse patient.[facility] HospitalIn the event this information is protected by the Federal Confidentiality of Alcohol and Drug Abuse Patient Records regulations: The Federal rules restrict any use of the information to criminally investigate or prosecute any alcohol or drug abuse patient.[facility]In the event this information is protected by the Federal Confidentiality of Alcohol and Drug Abuse Patient Records regulations: The Federal rules restrict any use of the information to criminally investigate or prosecute any alcohol or drug abuse patient.[facility] HospitalIn the event this information is protected by the Federal Confidentiality of Alcohol and Drug Abuse Patient Records regulations: The Federal rules restrict any use of the information to criminally investigate or prosecute any alcohol or drug abuse patient.[facility]In the event this information is protected by the Federal Confidentiality of Alcohol and Drug Abuse Patient Records regulations: The Federal rules restrict any use of the information to criminally investigate or prosecute any alcohol or drug abuse patient.[facility] HospitalIn the event this information is protected by the Federal Confidentiality of Alcohol and Drug Abuse Patient Records regulations: The Federal rules restrict any use of the information to criminally investigate or prosecute any alcohol or drug abuse patient.[facility]In the event this information is protected by the Federal Confidentiality of Alcohol and Drug Abuse Patient Records regulations: The Federal rules restrict any use of the information to criminally investigate or prosecute any alcohol or drug abuse patient.[facility]In the event this information is protected by the Federal Confidentiality of Alcohol and Drug Abuse Patient Records regulations: The Federal rules restrict any use of the information to criminally investigate or prosecute any alcohol or drug abuse patient.[facility]In the event this information is protected by the Federal Confidentiality of Alcohol and Drug Abuse Patient Records regulations: The Federal rules restrict any use of the information to criminally investigate or prosecute any alcohol or drug abuse patient.[facility]In the event this information is protected by the Federal Confidentiality of Alcohol and Drug Abuse Patient Records regulations: The Federal rules restrict any use of the information to criminally investigate or prosecute any alcohol or drug abuse patient.[facility] HospitalIn the event this information is protected by the Federal Confidentiality of Alcohol and Drug Abuse Patient Records regulations: The Federal rules restrict any use of the information to criminally investigate or prosecute any alcohol or drug abuse patient.[facility]In the event this information is protected by the Federal Confidentiality of Alcohol and Drug Abuse Patient Records regulations: The Federal rules restrict any use of the information to criminally investigate or prosecute any alcohol or drug abuse patient.[facility] HospitalIn the event this information is protected by the Federal Confidentiality of Alcohol and Drug Abuse Patient Records regulations: The Federal rules restrict any use of the information to criminally investigate or prosecute any alcohol or drug abuse patient.[facility] HospitalIn the event this information is protected by the Federal Confidentiality of Alcohol and Drug Abuse Patient Records regulations: The Federal rules restrict any use of the information to criminally investigate or prosecute any alcohol or drug abuse patient.[facility] HospitalIn the event this information is protected by the Federal Confidentiality of Alcohol and Drug Abuse Patient Records regulations: The Federal rules restrict any use of the information to criminally investigate or prosecute any alcohol or drug abuse patient.[facility] HospitalIn the event this information is protected by the Federal Confidentiality of Alcohol and Drug Abuse Patient Records regulations: The Federal rules restrict any use of the information to criminally investigate or prosecute any alcohol or drug abuse patient.[facility]In the event this information is protected by the Federal Confidentiality of Alcohol and Drug Abuse Patient Records regulations: The Federal rules restrict any use of the information to criminally investigate or prosecute any alcohol or drug abuse patient.[facility]In the event this information is protected by the Federal Confidentiality of Alcohol and Drug Abuse Patient Records regulations: The Federal rules restrict any use of the information to criminally investigate or prosecute any alcohol or drug abuse patient.[facility]In the event this information is protected by the Federal Confidentiality of Alcohol and Drug Abuse Patient Records regulations: The Federal rules restrict any use of the information to criminally investigate or prosecute any alcohol or drug abuse patient.[facility] HospitalIn the event this information is protected by the Federal Confidentiality of Alcohol and Drug Abuse Patient Records regulations: The Federal rules restrict any use of the information to criminally investigate or prosecute any alcohol or drug abuse patient.[facility] HospitalIn the event this information is protected by the Federal Confidentiality of Alcohol and Drug Abuse Patient Records regulations: The Federal rules restrict any use of the information to criminally investigate or prosecute any alcohol or drug abuse patient.[facility]In the event this information is protected by the Federal Confidentiality of Alcohol and Drug Abuse Patient Records regulations: The Federal rules restrict any use of the information to criminally investigate or prosecute any alcohol or drug abuse patient.[facility] HospitalIn the event this information is protected by the Federal Confidentiality of Alcohol and Drug Abuse Patient Records regulations: The Federal rules restrict any use of the information to criminally investigate or prosecute any alcohol or drug abuse patient.[facility] HospitalIn the event this information is protected by the Federal Confidentiality of Alcohol and Drug Abuse Patient Records regulations: The Federal rules restrict any use of the information to criminally investigate or prosecute any alcohol or drug abuse patient.[facility] HospitalIn the event this information is protected by the Federal Confidentiality of Alcohol and Drug Abuse Patient Records regulations: The Federal rules restrict any use of the information to criminally investigate or prosecute any alcohol or drug abuse patient.[facility] HospitalIn the event this information is protected by the Federal Confidentiality of Alcohol and Drug Abuse Patient Records regulations: The Federal rules restrict any use of the information to criminally investigate or prosecute any alcohol or drug abuse patient.[facility] HospitalIn the event this information is protected by the Federal Confidentiality of Alcohol and Drug Abuse Patient Records regulations: The Federal rules restrict any use of the information to criminally investigate or prosecute any alcohol or drug abuse patient.[facility] HospitalIn the event this information is protected by the Federal Confidentiality of Alcohol and Drug Abuse Patient Records regulations: The Federal rules restrict any use of the information to criminally investigate or prosecute any alcohol or drug abuse patient.[facility] HospitalIn the event this information is protected by the Federal Confidentiality of Alcohol and Drug Abuse Patient Records regulations: The Federal rules restrict any use of the information to criminally investigate or prosecute any alcohol or drug abuse patient.[facility] HospitalIn the event this information is protected by the Federal Confidentiality of Alcohol and Drug Abuse Patient Records regulations: The Federal rules restrict any use of the information to criminally investigate or prosecute any alcohol or drug abuse patient.[facility] HospitalIn the event this information is protected by the Federal Confidentiality of Alcohol and Drug Abuse Patient Records regulations: The Federal rules restrict any use of the information to criminally investigate or prosecute any alcohol or drug abuse patient.[facility] HospitalIn the event this information is protected by the Federal Confidentiality of Alcohol and Drug Abuse Patient Records regulations: The Federal rules restrict any use of the information to criminally investigate or prosecute any alcohol or drug abuse patient.[facility] HospitalIn the event this information is protected by the Federal Confidentiality of Alcohol and Drug Abuse Patient Records regulations: The Federal rules restrict any use of the information to criminally investigate or prosecute any alcohol or drug abuse patient.[facility] HospitalIn the event this information is protected by the Federal Confidentiality of Alcohol and Drug Abuse Patient Records regulations: The Federal rules restrict any use of the information to criminally investigate or prosecute any alcohol or drug abuse patient.[facility] HospitalIn the event this information is protected by the Federal Confidentiality of Alcohol and Drug Abuse Patient Records regulations: The Federal rules restrict any use of the information to criminally investigate or prosecute any alcohol or drug abuse patient.[facility] HospitalIn the event this information is protected by the Federal Confidentiality of Alcohol and Drug Abuse Patient Records regulations: The Federal rules restrict any use of the information to criminally investigate or prosecute any alcohol or drug abuse patient.[facility] HospitalIn the event this information is protected by the Federal Confidentiality of Alcohol and Drug Abuse Patient Records regulations: The Federal rules restrict any use of the information to criminally investigate or prosecute any alcohol or drug abuse patient.[facility] HospitalIn the event this information is protected by the Federal Confidentiality of Alcohol and Drug Abuse Patient Records regulations: The Federal rules restrict any use of the information to criminally investigate or prosecute any alcohol or drug abuse patient.[facility] HospitalIn the event this information is protected by the Federal Confidentiality of Alcohol and Drug Abuse Patient Records regulations: The Federal rules restrict any use of the information to criminally investigate or prosecute any alcohol or drug abuse patient.[facility] HospitalIn the event this information is protected by the Federal Confidentiality of Alcohol and Drug Abuse Patient Records regulations: The Federal rules restrict any use of the information to criminally investigate or prosecute any alcohol or drug abuse patient.[facility] HospitalIn the event this information is protected by the Federal Confidentiality of Alcohol and Drug Abuse Patient Records regulations: The Federal rules restrict any use of the information to criminally investigate or prosecute any alcohol or drug abuse patient.[facility] HospitalIn the event this information is protected by the Federal Confidentiality of Alcohol and Drug Abuse Patient Records regulations: The Federal rules restrict any use of the information to criminally investigate or prosecute any alcohol or drug abuse patient.[facility] HospitalIn the event this information is protected by the Federal Confidentiality of Alcohol and Drug Abuse Patient Records regulations: The Federal rules restrict any use of the information to criminally investigate or prosecute any alcohol or drug abuse patient.[facility] HospitalIn the event this information is protected by the Federal Confidentiality of Alcohol and Drug Abuse Patient Records regulations: The Federal rules restrict any use of the information to criminally investigate or prosecute any alcohol or drug abuse patient.[facility] HospitalIn the event this information is protected by the Federal Confidentiality of Alcohol and Drug Abuse Patient Records regulations: The Federal rules restrict any use of the information to criminally investigate or prosecute any alcohol or drug abuse patient.[facility] HospitalIn the event this information is protected by the Federal Confidentiality of Alcohol and Drug Abuse Patient Records regulations: The Federal rules restrict any use of the information to criminally investigate or prosecute any alcohol or drug abuse patient.[facility] HospitalIn the event this information is protected by the Federal Confidentiality of Alcohol and Drug Abuse Patient Records regulations: The Federal rules restrict any use of the information to criminally investigate or prosecute any alcohol or drug abuse patient.[facility] HospitalIn the event this information is protected by the Federal Confidentiality of Alcohol and Drug Abuse Patient Records regulations: The Federal rules restrict any use of the information to criminally investigate or prosecute any alcohol or drug abuse patient.[facility] HospitalIn the event this information is protected by the Federal Confidentiality of Alcohol and Drug Abuse Patient Records regulations: The Federal rules restrict any use of the information to criminally investigate or prosecute any alcohol or drug abuse patient.[facility] HospitalIn the event this information is protected by the Federal Confidentiality of Alcohol and Drug Abuse Patient Records regulations: The Federal rules restrict any use of the information to criminally investigate or prosecute any alcohol or drug abuse patient.[facility] HospitalIn the event this information is protected by the Federal Confidentiality of Alcohol and Drug Abuse Patient Records regulations: The Federal rules restrict any use of the information to criminally investigate or prosecute any alcohol or drug abuse patient.[facility] HospitalIn the event this information is protected by the Federal Confidentiality of Alcohol and Drug Abuse Patient Records regulations: The Federal rules restrict any use of the information to criminally investigate or prosecute any alcohol or drug abuse patient.[facility] HospitalIn the event this information is protected by the Federal Confidentiality of Alcohol and Drug Abuse Patient Records regulations: The Federal rules restrict any use of the information to criminally investigate or prosecute any alcohol or drug abuse patient.[facility] HospitalIn the event this information is protected by the Federal Confidentiality of Alcohol and Drug Abuse Patient Records regulations: The Federal rules restrict any use of the information to criminally investigate or prosecute any alcohol or drug abuse patient.[facility] HospitalIn the event this information is protected by the Federal Confidentiality of Alcohol and Drug Abuse Patient Records regulations: The Federal rules restrict any use of the information to criminally investigate or prosecute any alcohol or drug abuse patient.[facility] HospitalIn the event this information is protected by the Federal Confidentiality of Alcohol and Drug Abuse Patient Records regulations: The Federal rules restrict any use of the information to criminally investigate or prosecute any alcohol or drug abuse patient.[facility] HospitalIn the event this information is protected by the Federal Confidentiality of Alcohol and Drug Abuse Patient Records regulations: The Federal rules restrict any use of the information to criminally investigate or prosecute any alcohol or drug abuse patient.[facility] HospitalIn the event this information is protected by the Federal Confidentiality of Alcohol and Drug Abuse Patient Records regulations: The Federal rules restrict any use of the information to criminally investigate or prosecute any alcohol or drug abuse patient.[facility] Reason for Visit (unrecogniz ed section [...] exposure Specialty Diagnoses / Procedures Referred By Victorino ebnnett Referred To Contact DIGITAL COMPUTER OPERATOR Diagnoses READ Procedures OB ULTRASOUND POC Shu Reeves APRN.CN [address] [place] [address] Shu Reeves APRN.[facility] [address] 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 Form Reason Comments Question (OB Question) Reason Onset Date Comments Care 08/04/2023 Reason Comments Radiology US Specialty Diagnoses / Procedures Referred By Victorino bennett Referred To Contact [facility] Diagnoses Breast pain Procedures US BREAST LTD LEFT US BREAST UNI REAL TIME WITH IMAGE LIMITED Liss Vaca APRN.[employer] [address] [place] [address] [facility] [address] [place] [address] Referral ID Status Reason Start Date Expiration Date V isits Requested Visits Authorized [id number] Closed Auto-Generate d Referral 05/13/2023 06/11/2024 1 [...] glucose tolerance, antepartum Procedures CONSULT TO GESTATIONAL/ CORPORATE WEBMASTER OFFICE/OUTPATIENT [facility] 60 MINUTES Manuela Luz MD [address] [place] [address] Referral ID Status Reason Start Date Expiration Date V isits Requested Visits Authorized [id number] Closed PCP Requested Referral Auto-Generated Referral 11/19/2023 11/18/2024 1 1 Reason Comments Assessment Patient Education Specialty Diagnoses / Procedures Referred By Contac t Referred To Contact Nutrition Diagnoses Abnormal maternal glucose tolerance, antepartum Procedures CONSULT TO NUTRITION THERAPY MEDICAL NUTRITION ASSMT&IVNTJ INDIV EACH 15 [place] MEDICAL NUTRITION ASSMT&IVNTJ INDIV EACH 15 [place] MEDICAL NUTRITION ASSMT&IVNTJ INDIV EACH 15 [place] MEDICAL NUTRITION ASSMT&IVNTJ INDIV EACH 15 [place] Manuela Luz MD [address] [place] [address] Referral ID Status Reason Start Date Expiration Date V isits Requested Visits Authorized [id number] Closed PCP Requested Referral 11/19/2023 11/18/2024 1 1 Reason Comments 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 - Other PRAF Reason Onset Date Comments [...] Referred By Contac t Referred To Contact [facility] Diagnoses 34 weeks gestation of Diet controlled gestational diabetes mellitus (GDM) in third trimester Procedures OBSTETRIC ULTRASOUND WHI US PREG UTERUS AFTER 1ST TRIMEST GESTATION Gill Kim, SENIOR PHYSICIAN.[employer] [address] [place] [address] [facility] [place] [address] [place] [address] Referral ID Status Reason Start Date Expiration Date V isits Requested Visits Authorized [id number] Closed Auto-Generate d Referral 01/01/2024 12/31/2024 1 [...] pain Specialty Diagnoses / Procedures Referred By Contac t Referred To Contact Gastroenterology Diagnoses Gastroesophageal reflux disease, unspecified whether esophagitis present Upper abdominal pain Procedures CONSULT TO GASTROENTEROLOGY OFFICE/OUTPATIENT NEW HIGH MDM 60 MINUTES Darya Quiñones, SENIOR PHYSICIAN.[employer] [address] [place] [address] Referral ID Status Reason Start Date Expiration Date V isits Requested Visits Authorized [id number] Closed PCP Requested Referral 06/09/2024 06/09/2025 1 [...] NM Specialty Diagnoses / Procedures Referred By Contac t Referred To Contact [facility] Diagnoses Dyspepsia Procedures NM GASTRIC EMPTYING SOLID GASTRIC EMPTYING STUDY Jose Delgado, SENIOR PHYSICIAN.[employer] [address] [place] [address] Phone: tel: fax: [facility] [address] [place] [address] Phone: tel: Referral ID Status Reason Start Date Expiration Date V isits Requested Visits Authorized [id number] Closed Auto-Generate d Referral 01/25/2025 10/05/2025 1 1 Reason Comments Patient Question Reason Onset Date Comments Refill Request 04/11/2025 Reason Comments Consult Reason Comments Consult Drafter Tool Design Care Teams (unrecognized sec tion and content) Dosimetrist Relationship Specialty Start Date End Date Kishor Hernandez MD [address] [facility] [place] [place] [address] PCP - General Internal Medicine 03/25/16 Dosimetrist Relationship Specialty Start Date End Date Kishor Hernandez MD [address] [facility] [place] [place] [address] PCP - General Internal Medicine 03/25/16 Dosimetrist Relationship Specialty Start Date End Date Kishor Hernandez MD [address] [facility] [place] [place] [address] PCP - General Internal Medicine 03/25/16 Dosimetrist Relationship Specialty Start Date End Date Kishor Hernandez MD [address] [facility] [place] [place] [address] PCP - General Internal Medicine 03/25/16 Dosimetrist Relationship Specialty Start Date End Date Kishor Hernandez MD [address] [facility] [place] [place] [address] PCP - General Internal Medicine 03/25/16 Dosimetrist Relationship Specialty Start Date End Date Kishor Hernandez MD [address] [facility] [place] [place] [address] PCP - General Internal Medicine 03/25/16 Team Status: Active Member Role Status Dates Dr. Yoandy Gates MD Family Provider Active Dr. Kishor Hernandez MD Primary Care Provider Active Team Status: Inactive Member Role Status Dates Dr. Kishor Hernandez MD Primary Care Provider Active Hai Chavira NP, MARKETING COMMUNICATIONS MANAGER-C Attending Provider, Referring Provi yumiko Active Dosimetrist Relationship Specialty Start Date End Date Kishor Hernandez MD [address] [facility] [place] [place] [address] PCP - General Internal Medicine 03/25/16 Dosimetrist Relationship Specialty Start Date End Date Kishor Hernandez MD [address] [place] [address] PCP - General Internal Medicine 03/25/16 Dosimetrist Relationship Specialty Start Date End Date Kishor Hernandez MD [address] [place] [address] PCP - General Internal Medicine 03/25/16 Dosimetrist Relationship Specialty Start Date End Date Kishor Hernandez MD [address] [place] [address] PCP - General Internal Medicine 03/25/16 Dosimetrist Relationship Specialty Start Date End Date Kishor Hernandez MD [address] [place] [address] PCP - General Internal Medicine 03/25/16 Dosimetrist Relationship Specialty Start Date End Date Kishor Hernandez MD [address] [place] [address] PCP - General Internal Medicine 03/25/16 Dosimetrist Relationship Specialty Start Date End Date Kishor Hernandez MD [address] [place] [address] PCP - General Internal Medicine 03/25/16 Dosimetrist Relationship Specialty Start Date End Date Kishor Hernandez MD [address] [place] [address] PCP - General Internal Medicine 03/25/16 Dosimetrist Relationship Specialty Start Date End Date Kishor Hernandez MD [address] [place] [address] PCP - General Internal Medicine 03/25/16 Dosimetrist Relationship Specialty Start Date End Date Kishor Hernandez MD [address] [place] [address] PCP - General Internal Medicine 03/25/16 Team Status: Inactive Member Role Status Dates Dr. Kishor Hernandez MD Primary Care Provider Active Dr. Trent Frausto DO Emergency Provider Active Dosimetrist Relationship Specialty Start Date End Date Kishor Hernandez MD [address] [place] [address] PCP - General Internal Medicine 03/25/16 Dosimetrist Relationship Specialty Start Date End Date Kishor Hernandez MD [address] [place] [address] PCP - General Internal Medicine 03/25/16 Dosimetrist Relationship Specialty Start Date End Date Kishor Hernandez MD [address] [place] [address] PCP - General Internal Medicine 03/25/16 Dosimetrist Relationship Specialty Start Date End Date Kishor Hernandez MD [address] [place] [address] PCP - General Internal Medicine 03/25/16 Dosimetrist Relationship Specialty Start Date End Date Kishor Hernandez MD [address] [place] [address] PCP - General Internal Medicine 03/25/16 Dosimetrist Relationship Specialty Start Date End Date Kishor Hernandez MD [address] [place] [address] PCP - General Internal Medicine 03/25/16 Dosimetrist Relationship Specialty Start Date End Date Kishor Hernandez MD [address] [place] [address] PCP - General Internal Medicine 03/25/16 Dosimetrist Relationship Specialty Start Date End Date Kishor Hernandez MD [address] [place] [address] PCP - General Internal Medicine 03/25/16 Dosimetrist Relationship Specialty Start Date End Date Kishor Hernandez MD [address] [place] [address] PCP - General Internal Medicine 03/25/16 Dosimetrist Relationship Specialty Start Date End Date Kishor Hernandez MD [address] [place] [address] PCP - General Internal Medicine 03/25/16 Dosimetrist Relationship Specialty Start Date End Date Kishor Hernandez MD [address] [place] [address] PCP - General Internal Medicine 03/25/16 Dosimetrist Relationship Specialty Start Date End Date iKshor Hernandez MD [address] [place] [address] PCP - General Internal Medicine 03/25/16 Team Status: Inactive Member Role Status Dates Dr. Kishor Hernandez MD Primary Care Provider Active Dr. Rony Burgess DO Emergency Provider Active Dosimetrist Relationship Specialty Start Date End Date Kishor Hernandez MD [address] [place] [address] PCP - General Internal Medicine 03/25/16 Dosimetrist Relationship Specialty Start Date End Date Kishor Hernandez MD [address] [facility] [place] [place] [address] PCP - General Internal Medicine 03/25/16 Dosimetrist Relationship Specialty Start Date End Date Kishor Hernandez MD [address] [facility] [place] [place] [address] PCP - General Internal Medicine 03/25/16 Dosimetrist Relationship Specialty Start Date End Date Ksihor Hernandez MD [address] [facility] [place] [place] [address] PCP - General Internal Medicine 03/25/16 Dosimetrist Relationship Specialty Start Date End Date Kishor Hernandez MD [address] [facility] [place] [place] [address] PCP - General Internal Medicine 03/25/16 Team Status: Inactive Member Role Status Dates Dr. Kishor Hernandez MD Primary Care Provider Active Shu Reeves CNM Admit Provider, Attending Provider Active Team Status: Inactive Member Role Status Dates Dr. Kishor Hernandez MD Primary Care Provider Active Dr. Rony Burgess DO Attending Provider, Emergency P alvarado Active Dosimetrist Relationship Specialty Start Date End Date Kishor Hernandez MD [address] [facility] [place] [place] [address] PCP - General Internal Medicine 03/25/16 Dosimetrist Relationship Specialty Start Date End Date Kishor Hernandez MD [address] [facility] [place] [place] [address] PCP - General Internal Medicine 03/25/16 Dosimetrist Relationship Specialty Start Date End Date Kishor Hernandez MD [address] [facility] [place] [place] [address] PCP - General Internal Medicine 03/25/16 Dosimetrist Relationship Specialty Start Date End Date Kishor Hernandez MD [address] [place], [place] [address] PCP - General Internal Medicine 03/25/16 Dosimetrist Relationship Specialty Start Date End Date Kishor Hernandez MD [address] [place], [place] [address] PCP - General Internal Medicine 03/25/16 Dosimetrist Relationship Specialty Start Date End Date Kishor Hernandez MD [address] [place], [place] [address] PCP - General Internal Medicine 03/25/16 Patrizia Trevizo PA-C [address] [place], [place] [address] [phone] [facility] 09/12/24 Darya Quiñones APRN.[employer] [address] [place] [address] [facility] 09/12/24 Daly Hwang PA-C [address] [place] [address] [facility] 09/12/24 Dosimetrist Relationship Specialty Start Date End Date Kishor Hernandez MD [address] [place] [address] PCP - General Internal Medicine 03/25/16 Patrizia Trevizo PA-C [address] [place], [place] [address] [phone] [facility] 09/12/24 Darya Quiñones APRN.[employer] [address] [place] [address] [facility] 09/12/24 Daly Hwang PA-C [address] [facility] [place] [place] [address] [facility] 09/12/24 Dosimetrist Relationship Specialty Start Date End Date Kishor Hernandez MD [address] [facility] [place] [place] [address] PCP - General Internal Medicine 03/25/16 Patrizia Trevizo PA-C [address] [place] [address] [facility] 09/12/24 Darya Quiñones APRN.[employer] [address] [place] [address] [facility] 09/12/24 Daly Hwang PA-C [address] [facility] [place] [place] [address] [facility] 09/12/24 Dosimetrist Relationship Specialty Start Date End Date Kishor Hernandez MD [address] [facility] [place] [place] [address] PCP - General Internal Medicine 03/25/16 Patrizia Trevizo PA-C [address] [place] [address] [facility] 09/12/24 Darya Quiñones APRN.[employer] [address] [place] [address] [facility] 09/12/24 Daly Hwang PA-C [address] [place] [address] [facility] 09/12/24 Dosimetrist Relationship Specialty Start Date End Date Kishor Hernandez MD [address] [place] [address] PCP - General Internal Medicine 03/25/16 Patrizia Trevizo PA-C [address] [place] [address] [facility] 09/12/24 Darya Quiñones APRN.[employer] [address] [place] [address] [facility] 09/12/24 Daly Hwang PA-C [address] [place] [address] [facility] 09/12/24 Dosimetrist Relationship Specialty Start Date End Date Kishor Hernandez MD [address] [place] [address] PCP - General Internal Medicine 03/25/16 Patrizia Trevizo PA-C [address] [place] [address] [facility] 09/12/24 Darya Quiñones APRN.[employer] [address] [place] [address] [facility] 09/12/24 Daly Hwang PA-C [address] [facility] [place] [place] [address] [facility] 09/12/24 Dosimetrist Relationship Specialty Start Date End Date Kishor Hernandez MD [address] [facility] [place] [place] [address] PCP - General Internal Medicine 03/25/16 Patrizia Trevizo PA-C [address] [place], [place] [id number] [phone] [facility] 09/12/24 Darya Quiñones APRN.[employer] [address] [place] [address] [facility] 09/12/24 Daly Hwang PA-C [address] [place] [address] [facility] 09/12/24 Dosimetrist Relationship Specialty Start Date End Date Kishor Hernandez MD [address] [place] [address] PCP - General Internal Medicine 03/25/16 Patrizia Trevizo PA-C [address] [place] [address] [facility] 09/12/24 Darya Quiñones APRN.[employer] [address] [place] [address] [facility] 09/12/24 Daly Hwang PA-C [address] [place] [address] [facility] 09/12/24 Dosimetrist Relationship Specialty Start Date End Date Kishor Hernandez MD [address] [place] [address] PCP - General Internal Medicine 03/25/16 Patrizia Trevizo PA-C [address] [place] [address] [facility] 09/12/24 Darya Quiñones, SUSAN.[employer] [address] [place] [address] [facility] 09/12/24 Daly Hwang PA-C [address] [place] [address] [facility] 09/12/24 Dosimetrist Relationship Specialty Start Date End Date Kishor Hernandez MD [address] [place] [address] PCP - General Internal Medicine 03/25/16 Patrizia Trevizo PA-C [address] [place] [address] [facility] 09/12/24 Darya Quiñones, SENIOR PHYSICIAN.[employer] [address] [place] [address] [facility] 09/12/24 Daly Hwang PA-C [address] [place] [address] [facility] 09/12/24 Dosimetrist Relationship Specialty Start Date End Date Kishor Hernandez MD [address] [facility] [place], [place] [address] PCP - General Internal Medicine 03/25/16 Darya Quiñones APRN.[employer] [address] [facility], [place] [address] [facility] 09/12/24 Dosimetrist Relationship Specialty Start Date End Date Kishor Hernandez MD [address] [facility] [place], [place] [address] PCP - General Internal Medicine 03/25/16 Darya Quiñones APRN.[employer] [address] [facility], [place] [address] [facility] 09/12/24 Dosimetrist Relationship Specialty Start Date End Date Kishor Hernandez MD [address] [facility] [place], [place] [address] PCP - General Internal Medicine 03/25/16 Darya Quiñones APRN.[employer] [address] [facility], [place] [address] [facility] 09/12/24 Team Status: Active Member Role Status Dates Dr. Kishor Hernandez MD Primary Care Provider Active Team Status: Inactive Member Role Status Dates Dr. Kishor Hernandez MD Primary Care Provider Active Start: December 06, 2024 End: December 06, 2024 Dr. Raul Light MD Attending Provider Active Sta rt: December 06, 2024 End: December 06, 2024 Dr. Raul Light MD Emergency Provider Active Sta rt: December 06, 2024 End: December 06, 2024 Team Status: Inactive Member Role Status Dates Dr. Kishor Hernandez MD Primary Care Provider Active Start: March 24, 2025 End: March 25, 2025 Dr. Flip Hatfield DO Emergency Provider Active Start: March 24, 2025 End: March 25, 2025 Dosimetrist Relationship Specialty Start Date End Date Kishor Hernandez MD [address] [facility] [place] [address] PCP - General Internal Medicine 03/25/16 Older, Darya, SENIOR PHYSICIAN.[employer] [address] [place] [address] [facility] 09/12/24 Dosimetrist Relationship Specialty Start Date End Date Kishor Hernandez MD [address] [facility] [place] [address] PCP - General Internal Medicine 03/25/16 Older, Darya, SENIOR PHYSICIAN.[employer] [address] [place] [address] [facility] 09/12/24 Team Status: Active Member Role/Relationship Status Dates Dr. Kishor Hernandez MD Primary Care Provider Active Team Status: Inactive Member Role/Relationship Status Dates Dr. Kishor Hernandez MD Primary Care Provider Active Start: March 24, 2025 End: March 25, 2025 Dr. Flip Hatfield DO Attending Provider Active Start: March 24, 2025 End: March 25, 2025 Dr. Flip Hatfield DO Emergency Provider Active Start: March 24, 2025 End: March 25, 2025 Team Status: Inactive Member Role/Relationship Status Dates Dr. Kishor Hernandez MD Primary Care Provider Active Start: April 07, 2025 End: April 07, 2025 Dr. Flip Hatfield DO Attending Provider Active Start: April 07, 2025 End: April 07, 2025 Dr. Flip Hatfield DO Referring Provider Active Start: April 07, 2025 End: April 07, 2025 Team Status: Inactive Member Role/Relationship Status Dates Dr. Kishor Hernandez MD Primary Care Provider Active Start: April 14, 2025 End: April 14, 2025 Dr. Austen Love , DO Emergency Provider Active Start: April 14, 2025 End: April 14, 2025 Dosimetrist Relationship Specialty Start Date End Date Kishor Hernandez MD [address] [place] [address] PCP - General Internal Medicine 03/25/16 Darya Quiñones APRN.[employer] [address] [place] [address] [facility] 09/12/24 Dosimetrist Relationship Specialty Start Date End Date Kishor Hernandez MD [address] [place] [address] PCP - General Internal Medicine 03/25/16 Darya Quiñones APRN.[employer] [address] [place] [address] [facility] 09/12/24 Care Team (unrecognized sect ion and content) Care Team Personnel Name: PHYSICIAN, NONE Position: Physician Member Role: Primary Care Physician Care Team Related Persons Name: HARRIET DAVISRAMSEY INFORMATION SOURCE (unrecogn ized section and content) DATE CREATED AUTHOR 01/22/2023 [facility] DATE CREATED AUTHOR AUTHOR'S ORGANIZ ATION 05/21/2024 [facility] ([place] DATE CREATED AUTHOR AUTHOR'S ORGANIZ ATION 04/25/2025 [facility] DATE CREATED AUTHOR AUTHOR'S ORGANIZ ATION 06/08/2025 [facility] Goals (unrecognized section and content) Goals may [...] BE BASED ON THE PRIMARY CLINICAL RECORDS. [facility]. provides no warranty or guarantee of the accuracy or completeness of information in this document.
[2025-06-10 22:00] VITALS: BP 106/68; PULSE 83; RESP 18; O2SAT 100
[2025-06-10 22:17] LABS: Mucous, Urine 0 SEEN /hpf (<or=2+)
[2025-06-10 22:19] LABS: Color, Urine Yellow (Yellow); Glucose, Dipstick Normal (Normal); Ketone-Dipstick Negative (Negative); Leukocyte Esterase-Dipstick 25 /ul (Negative); Nitrite-Dipstick Negative (Negative); Occult Blood-Urine Negative /ul (Negative); Protein-Dipstick 30 mg/dl (Negative); Specific Gravity, Urine 1.020 (1.002-1.030); Urine Bilirubin Dipstick Negative (Negative)
[2025-06-10 22:26] LABS: Internal QC Validated? YES +Cl - CLEAR BKGD; Pregnancy, Urine Negative Negative; Record Kit Lot#,Urine Preg 947241
[2025-06-10 22:36] LABS: Squamous Epithelial Cells - UA 5-10 SEEN /hpf (5-10)
[2025-06-10 22:37] LABS: Red Blood Cells-Urine 0-5 SEEN /hpf (0-5)
[2025-06-10 23:00] VITALS: BP 108/69; PULSE 93; RESP 18; O2SAT 100
[2025-06-11] VITALS: BP 104/69; PULSE 70; RESP 17; O2SAT 99
[2025-06-11] MEDS: fentaNYL 100 MCG/2 ML Ampul 50 MCG IV (00:41)
[2025-06-11 01:00] VITALS: BP 99/69; PULSE 82; RESP 16; O2SAT 97
[2025-06-11 02:00] VITALS: BP 116/69; PULSE 81; RESP 18; TEMP 36.6; O2SAT 99
== END 2025-06-11 02:25 | disposition home or self-care (01) ==
PROVIDERS: Emergency Provider Emergency Medicine; PCP Internal Medicine; Visit Provider Emergency Medicine
DX: R10.13 Epigastric pain (principal); R07.9 Chest pain, unspecified; F41.9 Anxiety disorder, unspecified; R11.0 Nausea; F32.A Depression, unspecified; Z79.899 Other long term (current) drug therapy; F17.290 Nicotine dependence, other tobacco product, uncomplicated
CPT/HCPCS: 71275; 74174; 76705; 80053; 81001; 81025; 83605; 83690; 84703; 85025; 93005; 96361; 96374; 96375; 99282; Q9967; A4216; J2405

== ENCOUNTER 2025-07-18 18:50 | Emergency (ER) | payer MEDICAID, SELFPAY ==
[2025-07-18 18:50] VITALS: BP 132/89; PULSE 97; RESP 18; TEMP 36.8; O2SAT 98; BMI 26.6
--- NOTE | 2025-07-18 23:07 | ED.RN ---
Pt's name called for placement into ED room from waiting room at this time. Pt not found in waiting room, restroom or outside ED doors. Assumed LWBS
== END 2025-07-18 23:06 | disposition left against medical advice (07) ==
LOC: ED 23:10
PROVIDERS: PCP Internal Medicine
DX: Z00.00 Encounter for general adult medical examination without abnormal findings (principal)

== ENCOUNTER 2025-07-21 12:18 | Emergency (ER) | payer MEDICAID, SELFPAY ==
[2025-07-21 12:18] VITALS: BP 123/85; PULSE 74; RESP 16; TEMP 36.6; O2SAT 99; BMI 31.8
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
[2025-07-21 14:04] VITALS: BP 123/85; PULSE 74; RESP 16; TEMP 36.6; O2SAT 99
== END 2025-07-21 14:12 | disposition home or self-care (01) ==
PROVIDERS: Emergency Provider Emergency Medicine; PCP Internal Medicine; Visit Provider Emergency Medicine
DX: S16.1XXA Strain of muscle, fascia and tendon at neck level, initial encounter (principal); R51.9 Headache, unspecified; X58.XXXA Exposure to other specified factors, initial encounter; F32.A Depression, unspecified; Z79.899 Other long term (current) drug therapy; K21.9 Gastro-esophageal reflux disease without esophagitis; F17.290 Nicotine dependence, other tobacco product, uncomplicated
CPT/HCPCS: 72125; 99282